=== PATIENT | female | born 1940 | race Hispanic/Latino ===

== ENCOUNTER 2017-06-08 15:45 | Inpatient (IN) | payer MEDICARE ==
[2017-06-08] MEDS ORDERED: Albuterol Sulfate 2.5 mg/0.5 ml Neb ONE (17:08)
[2017-06-08] MEDS ORDERED: Ipratropium Bromide 2.5 ml Neb ONE (17:09)
[2017-06-08] MEDS ORDERED: Amlodipine 5 MG TAB ONE (17:13)
[2017-06-08 17:53] LABS: ALT (SGPT) 14 U/L (8-55); AST (SGOT) 29 U/L (5-34); Alkaline Phosphatase 53 U/L (40-150); Anion Gap 15 mmol/L (10-20); BUN (Urea Nitrogen) 15 mg/dL (9.8-20.1); Bilirubin, Total 0.7 mg/dL (0.2-1.2); Calc. Creatinine Clearance 0 mL/min (70-130); Calcium 8.6 mg/dL (7.8-10.44); Carbon Dioxide 25 mmol/L (23-31); Chloride 107 mmol/L (98-107); Estimated GFR-MDRD 67; Globulin 3.7 g/dL (2.4-3.5); Glucose 123 mg/dL (83-110); Potassium 3.5 mmol/L (3.5-5.1); Protein, Total 6.7 g/dL (6.0-8.3); Sodium 143 mmol/L (136-145)
[2017-06-08 17:55] LABS: CKMB 1.7 ng/mL (0-6.6)
--- NOTE | 2017-06-08 17:59 | RAD ---
PORTABLE CHEST: Date: 06/08/17 PROVIDED CLINICAL HISTORY: Dyspnea. FINDINGS: Comparison with 12/11/15. The cardiac silhouette appears enlarged. Atherosclerosis involves the aortic arch. There is prominenc e of the pulmonary vasculature and pulmonary interstitium. There is left basilar pleural parenchymal opacity that may reflect at least in part pleural effusion. There is no evidence for pneumothorax. IMPRESSION: Cardiomegaly and findings suggesting congestive failure, possibly with associated left pleural effusi on. Follow-up is recommended. POS: DARIEN
[2017-06-08 18:07] LABS: #Basophils 0.1 thou/uL (0.0-0.2); #Eosinphils 0.2 thou/uL (0.0-0.7); #Lymphocytes 2.3 thou/uL (1.20-3.40); #Monocytes 0.7 thou/uL (0.11-0.59); #Neutrophils 2.5 thou/uL (1.40-6.50); %Basophils 1.8 % (0.0-1.0); %Eosinophils 2.9 % (0.0-10.0); %Lymphocytes 39.9 % (21.0-51.0); %Neutrophils 43.5 % (42.0-75.0); Anisocytosis SLIGHT = 6-15 cells (100X) (0-5/hpf); Elliptocytes SLIGHT = 2-5 cells (100X) (0-1/hpf); Hemoglobin 8.2 g/dL (12.0-16.0); Hypochromia SLIGHT = 6-15 cells (100X) (0-5/hpf); MDiff Complete? YES; Mean Corpuscular HGB CONC 29.5 g/dL (32.0-36.0); Mean Corpuscular Hemoglobin 24.5 pg (27.0-31.0); Mean Corpuscular Volume 83.1 fl (81.0-99.0); Mean Platelet Volume 6.8 fL (7.4-10.4); Microcytosis SLIGHT = 6-15 cells (100X) (0-5/hpf); Ovalocytes SLIGHT = 2-5 cells (100X) (0-1/hpf); PLT Morphology Comment Appears Adequate; Platelet Count 158 thou/uL (130-400); Polychromasia SLIGHT = 2-3 cells (100X) (0-2/hpf); RBC Distribution Width 16.6 % (11.5-14.5); Red Blood Cell (RBC) Count 3.36 mill/uL (4.20-5.40); White Blood Cell (WBC) Count 5.7 thou/uL (4.8-10.8)
[2017-06-08] MEDS ORDERED: Furosemide 40 MG/4 ML VIAL ONE (18:24)
[2017-06-08] MEDS ORDERED: Ondansetron ODT 4 MG TAB SL PRN (20:59)
[2017-06-08] MEDS ORDERED: Acetaminophen 325 MG TAB PO PRN (20:59)
[2017-06-08] MEDS ORDERED: Ondansetron HCl/PF 4 MG/2 ML Vial IVP PRN (20:59)
[2017-06-09 03:01] LABS: Cardiac Risk 3.8 (Less than 4.5)
[2017-06-09] MEDS ORDERED: PROVENTIL INHALER 6.7 G (200 INHALATIONS) INH PRN (03:22)
[2017-06-09] MEDS ORDERED: Metoprolol Tartrate 5 MG/5 ML VIAL IVP PRN (03:22)
--- NOTE | 2017-06-09 04:02 | HP ---
DATE OF ADMISSION: 06/09/2017 ADMITTING PHYSICIAN: Teodoro Sherman M.D. PRIMARY CARE PHYSICIAN: Unknown to me. CHIEF COMPLAINT: Elevated blood pressure and shortness of breath. HISTORY OF PRESENT ILLNESS: The patient is a 77-year-old female, who comes and reporting increased d yspnea on exertion. She has a history of asthma, but reports that the shortness of breath is not rel ieved with her inhaler. She has also been noted to be hypertensive by her home health nurse. She wa s sent in to the [place] [facility] for further evaluation. At [facility], she was noted to have marked dyspnea and a BNP of 2600. Her baseline BNP is around 300. The patien t also noted to have elevated troponins. She denies fever, chills, nausea, vomiting. There was some diaphoresis with her shortness of breath. REVIEW OF SYSTEMS: The following complete review of systems was negative, unless otherwise mentioned in the HPI or below: Constitutional: Weight loss or gain, sense of well-being, ability to conduct usual activities, exerc ise tolerance. Skin/Breast: Rash, itching, changes in hair growth or loss, nail changes, breast lumps, tenderness, swelling, nipple discharge. Eyes: Vision, double vision, tearing, blind spots, pain. ENT/Mouth: Headaches (location, time of onset, duration, precipitating factors), vertigo, lightheade dness, injury. Vision, double vision, tearing, blind spots, pain, nose bleeding, colds, obstruction, discharge, dental difficulties, gingival bleeding, dentures, neck stiffness, pain, tenderness, masses in thyroid or other areas. Cardiovascular: Precordial pain, substernal distress, palpitations, syncope, dyspnea on exertion, or thopnea, nocturnal paroxysmal dyspnea, edema, cyanosis, hypertension, heart murmurs, varicosities, ph lebitis, claudication. Respiratory: Pain, shortness of breath, wheezing, stridor, cough, hemoptysis, fever or night sweats. Gastrointestinal: Poor appetite, dysphagia, indigestion, abdominal pain, heartburn, eructation, naus ea, vomiting, hematemesis, jaundice, constipation, or diarrhea, abnormal stools (adilia-colored, tarry, bloody, greasy, foul smelling), flatulence, hemorrhoids, recent changes in bowel habits. Genitourinary: Urgency, frequency, dysuria, nocturia, hematuria, polyuria, oliguria, unusual (or raf nge in) color of urine, stones, hesitancy, change in size of stream, dribbling, acute retention or in continence, libido, potency. Musculoskeletal: Pain, swelling, redness or heat of muscles or joints, limitation, of motion, muscul ar weakness, atrophy, cramps. Neurologic/Psychiatric: Convulsions, paralyses, tremor, incoordination, paresthesias, difficulties w ith memory of speech, sensory or motor disturbances, or muscular coordination (ataxia, tremor), emoti onal problems, anxiety, depression, previous psychiatric care, unusual perceptions, hallucinations. Allergy/Immunologic: Skin rash, anemia, bleeding tendency, polydipsia, polyuria, intolerance to heat or cold. PAST MEDICAL HISTORY: Significant for hypertension, psoriasis, diabetes, congestive heart failure. PAST SURGICAL HISTORY: Positive for right ankle procedure, hysterectomy, cardiac ablation. PSYCHIATRIC HISTORY: No known previous psychiatric history. SOCIAL HISTORY: She denies alcohol, drug use or smoking. Lives with her . FAMILY HISTORY: Noncontributory to this case. HOME MEDICATIONS: Lisinopril 20 mg once a day, Aggrenox 1 cap b.i.d., metformin 500 mg b.i.d., levot hyroxine 88 mcg q. day, Proventil inhaler 2 puffs q.6 hours, carvedilol 25 mg b.i.d., Humira one dose every other week subcutaneously. DRUG ALLERGIES: NAPROXEN, this is unconfirmed. Otherwise, no known drug allergies. PHYSICAL EXAMINATION: VITAL SIGNS: Temperature is 98.9, blood pressure is 180/94, pulse 71, respirations 16, O2 sats 98% o n room air. GENERAL: This patient is in no acute distress. She is pleasant, nontoxic. HEAD: Normocephalic, atraumatic. EYES: PERRL. Extraocular muscles are intact. No nystagmus. ENT: External ear within normal limits. No bleeding from her nares. NECK: Supple. Full range of motion. CHEST: Fine crackles in the bases, otherwise clear to auscultation. CARDIOVASCULAR: Regular rate and rhythm with a holosystolic murmur. ABDOMEN: Nontender, nondistended. EXTREMITIES: No clubbing or cyanosis, trace edema. NEUROLOGIC: Cranial nerves II-XII grossly intact. Full range of motion of all extremities. LABORATORY DATA AND IMAGES: EKG shows nonspecific ST and T-wave changes, enlarged QRS. Chest x-ray shows left pleural effusion, congestive heart failure. CBC: White count 5.7, hemoglobin 8.2, hemato crit 27.9, platelets 158. CMP: Sodium 143, potassium 3.5, chloride 107, CO2 of 25, BUN 15, creatini ne 0.83, glucose 123, CK-MB 1.7, troponin I 0.06 and then second 0.05. BNP 2690, albumin 3.0, LDL 12 2, HDL 32. ASSESSMENT: 1. Acute on chronic congestive heart failure exacerbation. 2. Accelerated hypertension. 3. Possible non-ST elevation myocardial infarction. PLAN: The patient will be admitted to telemetry, we will diurese the patient. We will also cover he r with anticoagulation therapy as well as beta blockers. She will be seen and assessed by the Cardio logy Service. Further interventions to follow appropriate evaluation by subspecialist.
[2017-06-09] MEDS: Levothyroxine Sodium 88 MCG TAB PO SCH (05:53)
[2017-06-09] MEDS ORDERED: Enoxaparin Sodium 80 MG/0.8 ML SYRINGE SC SCH (09:00)
[2017-06-09] MEDS: Carvedilol 25 MG TAB PO SCH ×2 (09:22→20:17)
--- NOTE | 2017-06-09 11:16 | PQF ---
DATE: 06-09-17 ATTN: DR. RAVEN LYN Please exercise your independent, professional judgment in responding to the clarification form. Clinical indicators are provided on the bottom of this form for your review Please check appropriate box(s): [ X ] Primary/Essential Hypertension [ X ] Emergency [ ] Crisis [ X ] Hypertensive Heart Disease [ ] Other diagnosis [ ] Unable to determine In addition, please specify: Present on Admission (POA): [ ] Yes [ ] No [ ] Unable to determine For continuity of documentation, please document condition throughout progress notes and discharge summary. Thank You. CLINICAL INDICATORS - SIGNS / SYMPTOMS / LABS ER DOCUMENTATION: HIGH BLOOD PRESSURE, PT REPORTS THAT SHE HAD CHANGES TO BP MEDS DUE TO HTN, BUT NO RELIEF, HTN FOR 3X H&P: ACCELERATED HTN RISK FACTORS : ER DOCUMENTATION: HIGH BLOOD PRESSURE, HTN FOR 3X, HX OF HTN H&P: HX OF HTN, DM, CHF TREATMENTS: TELEMETRY MONITORING (MAR) COREG, LOTENSIN, LOPRESSOR, (This form is maintained as a part of the permanent medical record) 2014 [employer]. All Rights Reserved [email or web address] Office: [phone] [facility] CENTERYaima
--- NOTE | 2017-06-09 21:21 | CON ---
DATE OF CONSULTATION: 06/09/2017 REASON FOR CONSULTATION: Congestive heart failure, diastolic, acute. HISTORY OF PRESENT ILLNESS: Ms. Sung is a delightful 77-year-old woman. Patient came to the hospit al yesterday due to difficulty breathing and was found to be in heart failure. She received a dose o f intravenous Lasix and began feeling better. She is feeling better today, but still has significant edema. PAST MEDICAL HISTORY: 1. Hypertension, difficult to control. 2. Coronary artery disease. She had a balloon angioplasty of the vessel many years ago. 3. Psoriasis. 4. Diabetes. MEDICATIONS: 1. Benazepril 40 mg a day. 2. Aspirin/dipyridamole. 3. Carvedilol 25 mg twice a day. 4. Levothyroxine. ALLERGIES: Naproxen. SOCIAL HISTORY: No alcohol or tobacco. FAMILY HISTORY: Negative for heart disease in young age. REVIEW OF SYSTEMS: CONSTITUTIONAL: No significant weight gain or loss. VISION: No changes. HEARING: No changes. PULMONARY: No cough or wheezing. GASTROINTESTINAL: No nausea, vomiting, diarrhea. SKIN: No rashes. NEUROLOGIC: No unilateral weakness or numbness. PSYCHIATRIC: No unusual depression or anxiety. HEMATOLOGIC: No unusual bruising. GENITOURINARY: No burning with urination. MUSCULOSKELETAL: No unusual joint pains. PHYSICAL EXAMINATION: GENERAL: This is a pleasant 77-year-old woman. VITAL SIGNS: Her blood pressure is 170/73, pulse 58, regular. HEENT: Sclerae nonicteric. Mouth mucous membranes moist. NECK: Supple, no lymphadenopathy. LUNGS: Clear anteriorly and posteriorly, few rales. CARDIAC: Normal S1, normal S2. There is 2/6 harsh systolic murmur right upper sternal border. No d iastolic murmur, no S3. ABDOMEN: Soft, nontender, no hepatosplenomegaly. EXTREMITIES: Warm, dry, no clubbing or cyanosis. There is moderate edema. Echocardiogram, ejection fraction 50% to 55%, mild to moderate aortic stenosis and markedly enlarged left atrium. PERTINENT LABORATORY DATA: Hemoglobin is 8.2, hematocrit 27.9. The patient's blood pressures over 200 systolic on arrival here. LABORATORY AND X-RAY FINDINGS: EKG normal sinus rhythm, some nonspecific ST and T-wave changes later ally, T-wave inversions diffusely may be LVH versus ischemia. ASSESSMENT: 1. Congestive heart failure, diastolic, acute, improved. 2. Anemia, possibly iron deficiency. 3. Hypertension, difficult to control. 4. Longstanding diabetes. PLAN: 1. Continue diuretics. 2. Check iron levels tomorrow, may need intravenous iron. 3. Proceed to cardiac catheterization . Discussed risks of stroke, heart attack, iodine all ergy, loss of blood supply to the leg or kidney, stent thrombosis, stent restenosis. She understands and wishes to proceed.
[2017-06-10] MEDS: Levothyroxine Sodium 88 MCG TAB PO SCH (05:29)
[2017-06-10] MEDS: Furosemide 20 MG/2 ML VIAL SLOW IVP SCH ×2 (05:30→13:39)
[2017-06-10 06:35] LABS: #Basophils 0.1 thou/uL (0.0-0.2); #Eosinphils 0.1 thou/uL (0.0-0.7); #Lymphocytes 1.7 thou/uL (1.20-3.40); #Monocytes 0.4 thou/uL (0.11-0.59); #Neutrophils 1.6 thou/uL (1.40-6.50); %Basophils 1.4 % (0.0-1.0); %Eosinophils 3.5 % (0.0-10.0); %Monocytes 10.7 % (0.0-10.0); %Neutrophils 41.5 % (42.0-75.0); Hemoglobin 8.4 g/dL (12.0-16.0); Mean Corpuscular HGB CONC 30.6 g/dL (32.0-36.0); Mean Corpuscular Hemoglobin 25.8 pg (27.0-31.0); Mean Corpuscular Volume 84.1 fl (81.0-99.0); Mean Platelet Volume 8.5 fL (7.4-10.4); Platelet Count 141 thou/uL (130-400); RBC Distribution Width 16.6 % (11.5-14.5); Red Blood Cell (RBC) Count 3.27 mill/uL (4.20-5.40); White Blood Cell (WBC) Count 3.9 thou/uL (4.8-10.8)
[2017-06-10 07:04] LABS: Iron 21 ug/dL (50-170); Iron Binding Capacity, Total 351 mcg/dL (265-497)
--- NOTE | 2017-06-10 07:24 | PDOC.PN ---
- Subjective Encounter Start Date: 06/10/17 Encounter Start Time: 07:40 Subjective: No chest pain. SOB and edema improved. - Objective MAR Reviewed: Yes Vital Signs & Weight: Vital Signs (12 hours) Temp Pulse Resp BP BP Pulse Ox 06/10/17 03:58 97.9 F 59 L 16 180/77 H 95 06/10/17 00:19 98.2 F 57 L 16 163/70 H 97 06/09/17 22:07 60 168/73 H 06/09/17 19:51 98.3 F 67 16 98 06/09/17 19:30 98.5 F 67 16 183/78 H 98 Weight Weight 165 lb I&O: 06/09/17 06/10/17 06/11/17 06:59 06:59 06:59 Intake Total 240 Output Total 300 Balance -60 Result Diagrams: 06/10/17 06:11 06/08/17 17:30 Additional Labs: Accuchecks 06/10/17 06/09/17 06:24 21:30 POC Glucose 132 H 175 H Phys Exam - Physical Examination Constitutional: NAD HEENT: moist MMs Respiratory: no wheezing, no rales, no rhonchi Cardiovascular: RRR, no significant murmur Gastrointestinal: soft, positive bowel sounds Musculoskeletal: edema present 1+ BLE edema Neurological: non-focal, moves all 4 limbs Psychiatric: normal affect, A&O x 3 Dx/Plan (1) Acute on chronic diastolic (congestive) heart failure Code(s): I50.33 - ACUTE ON CHRONIC DIASTOLIC (CONGESTIVE) HEART FAILURE Status : Acute Comment: Diuresing and feeling better. (2) Normocytic anemia Code(s): D64.9 - ANEMIA, UNSPECIFIED Status: Acute Comment: Developed since 2017, uncertain eitiology, no renal failure, will check hemoccult as patient on Aggrenox. (3) Diabetes type 2, controlled Code(s): E11.9 - TYPE 2 DIABETES MELLITUS WITHOUT COMPLICATIONS Status: Chronic (4) Hypertension Code(s): I10 - ESSENTIAL (PRIMARY) HYPERTENSION Status: Chronic - Plan cont current plan of care, PT/OT Planned cath tomorrow. Appreciate Dr. Mccallum's input. * . - Discharge Day Encounter end time: 08:10
[2017-06-10] MEDS: Aggrenox 200-25mg CAP PO SCH ×2 (08:58→21:03)
[2017-06-10] MEDS: Carvedilol 25 MG TAB PO SCH ×2 (08:58→21:03)
[2017-06-10] MEDS ORDERED: Enoxaparin Sodium 60 MG/0.6 ML SYRINGE SC SCH (09:00)
[2017-06-10] MEDS ORDERED: FLU VACC TS2017-18 (>65YR) 0.5 ML SYRINGE IM ONE (09:00)
[2017-06-10] MEDS ORDERED: Iron Dextran 500 MG in Sodium Chloride 0.9% 250 ML IVPB SCH (11:30)
[2017-06-10] MEDS ORDERED: Spironolactone 25 MG TAB PO SCH (11:30)
[2017-06-10] MEDS ORDERED: Potassium Chloride 20 MEQ TAB PO SCH (12:00)
--- NOTE | 2017-06-10 18:13 | PRG ---
DATE OF SERVICE: 06/10/2017 SUBJECTIVE: Ms. Sung is doing well. No chest pain or pressure. Overall, feels better. OBJECTIVE: VITAL SIGNS: Blood pressure is still elevated at 182/72, pulse 60, it is regular. LUNGS: Clear. CARDIAC: Normal S1, normal S2. ABDOMEN: Soft and nontender. ASSESSMENT: 1. Hypertension 2. Angina. 3. Anemia, iron deficiency. PLAN: 1. Proceed to cardiac catheterization tomorrow. I discussed risks of stroke, heart attack, iodine a llergy, loss of blood supply to the leg or kidney, stent thrombosis, stent restenosis. She understan ds and wishes to proceed. 2. We will need further evaluation for iron deficiency anemia. 3. She did receive intravenous iron today. Her iron level was 21 with a ferritin level of 11.89, bu t these are very low.
[2017-06-10] MEDS ORDERED: Amlodipine 5 MG TAB PO SCH (18:15)
[2017-06-10] MEDS ORDERED: Communication Order-Pharmacy FS SCH (18:15)
[2017-06-10] MEDS ORDERED: Diazepam 5 MG TAB PO SCH (18:15)
[2017-06-11] MEDS: Levothyroxine Sodium 88 MCG TAB PO SCH (05:12)
[2017-06-11] MEDS: Sodium Chloride 0.9% 1,000 ML IV SCH ×2 (05:12→18:23)
[2017-06-11] MEDS: Carvedilol 25 MG TAB PO SCH ×2 (05:13→20:12)
[2017-06-11] MEDS: Aggrenox 200-25mg CAP PO SCH (05:13)
[2017-06-11] MEDS: Amlodipine 5 MG TAB PO SCH (05:13)
[2017-06-11 06:23] LABS: #Eosinphils 0.1 thou/uL (0.0-0.7); #Lymphocytes 1.8 thou/uL (1.20-3.40); #Monocytes 0.4 thou/uL (0.11-0.59); #Neutrophils 1.9 thou/uL (1.40-6.50); %Basophils 0.8 % (0.0-1.0); %Eosinophils 2.2 % (0.0-10.0); %Lymphocytes 43.2 % (21.0-51.0); %Monocytes 8.8 % (0.0-10.0); %Neutrophils 44.9 % (42.0-75.0); Hemoglobin 8.2 g/dL (12.0-16.0); Mean Corpuscular HGB CONC 30.5 g/dL (32.0-36.0); Mean Corpuscular Hemoglobin 25.8 pg (27.0-31.0); Mean Corpuscular Volume 84.6 fl (81.0-99.0); Mean Platelet Volume 8.6 fL (7.4-10.4); Platelet Count 157 thou/uL (130-400); RBC Distribution Width 16.7 % (11.5-14.5); Red Blood Cell (RBC) Count 3.18 mill/uL (4.20-5.40); White Blood Cell (WBC) Count 4.1 thou/uL (4.8-10.8)
[2017-06-11 06:51] LABS: Anion Gap 12 mmol/L (10-20); BUN (Urea Nitrogen) 17 mg/dL (9.8-20.1); Calc. Creatinine Clearance 63 mL/min (70-130); Carbon Dioxide 28 mmol/L (23-31); Chloride 106 mmol/L (98-107); Potassium 3.5 mmol/L (3.5-5.1); Sodium 142 mmol/L (136-145)
[2017-06-11 06:52] LABS: Calcium 8.2 mg/dL (7.8-10.44); Estimated GFR-MDRD 65; Glucose 119 mg/dL (83-110)
[2017-06-11] MEDS ORDERED: Fentanyl 100 MCG/2 ML VIAL ONE (07:15)
[2017-06-11] MEDS ORDERED: Acetaminophen/Codeine 30-300mg Tablet PO PRN (08:08)
[2017-06-11] MEDS ORDERED: traMADol HCl 50 MG TAB PO PRN (08:08)
[2017-06-11] MEDS ORDERED: Nitroglycerin 0.4 MG TAB (25 Tab Bottle) SL PRN (08:08)
[2017-06-11] MEDS ORDERED: Sodium Chloride 0.9% 200 ML IV SCH (08:15)
--- NOTE | 2017-06-11 10:54 | PDOC.PN ---
- Subjective Encounter Start Date: 06/11/17 Encounter Start Time: 10:50 Subjective: Patient back from [facility], just talked to Dr. Lucero about Bipass surgery. No -: chest pain. No SOB. - Objective MAR Reviewed: Yes Vital Signs & Weight: Vital Signs (12 hours) Temp Pulse Resp BP BP Pulse Ox 06/11/17 08:00 98.3 F 65 20 144/66 H 99 06/11/17 05:14 141/64 H 06/11/17 05:13 62 141/64 H 06/11/17 04:00 98.3 F 62 16 141/64 H 95 06/11/17 00:00 98.1 F 61 16 132/60 93 L 06/10/17 23:31 98.0 F 63 16 96 Weight Weight 159 lb 6.4 oz I&O: 06/10/17 06/11/17 06/12/17 06:59 06:59 06:59 Intake Total 240 1270 Output Total 300 1300 Balance -60 -30 Result Diagrams: 06/11/17 05:51 06/11/17 05:51 Additional Labs: Accuchecks 06/11/17 06/10/17 06/10/17 05:20 21:17 17:40 POC Glucose 112 H 206 H 156 H 06/10/17 11:02 POC Glucose 205 H Phys Exam - Physical Examination Constitutional: NAD HEENT: moist MMs Respiratory: no wheezing, no rales, no rhonchi, clear to auscultation bilateral Cardiovascular: RRR 2/6 SYBIL Gastrointestinal: soft, positive bowel sounds Neurological: non-focal, moves all 4 limbs Psychiatric: normal affect, A&O x 3 Dx/Plan (1) Acute on chronic diastolic (congestive) heart failure Code(s): I50.33 - ACUTE ON CHRONIC DIASTOLIC (CONGESTIVE) HEART FAILURE Status : Acute Comment: Diuresing and feeling better. (2) Normocytic anemia Code(s): D64.9 - ANEMIA, UNSPECIFIED Status: Acute Comment: Developed since 2017, uncertain eitiology, no renal failure, low iron levels, neg hemoccult. Suspect GI blood loss though not actively. Will need GI w/u as outpatient. (3) Diabetes type 2, controlled Code(s): E11.9 - TYPE 2 DIABETES MELLITUS WITHOUT COMPLICATIONS Status: Chronic (4) Hypertension Code(s): I10 - ESSENTIAL (PRIMARY) HYPERTENSION Status: Chronic (5) Coronary artery disease Code(s): I25.10 - ATHSCL HEART DISEASE OF [place] CORONARY ARTERY W/O ANG PCTRS Status: Acute Qualifiers: Coronary Disease-Associated Artery/Lesion type: [place] artery Comment: 80% blockage of left main. Will need CABG. - Plan cont current plan of care, DVT proph w/SCDs * . - Discharge Day Encounter end time: 11:20
[2017-06-11] MEDS ORDERED: Communication Order-Pharmacy FS SCH (12:58)
--- NOTE | 2017-06-11 13:11 | CON ---
DATE OF CONSULTATION: 06/11/2017 REASON FOR CONSULTATION: Evaluation for coronary artery bypass surgery and possible aortic valve replacement. PERTINENT HISTORY: The patient is a 77-year-old female with history of remote coronary angioplasty to an unknown vessel in [place]. For the past 4 months , she has had a progressive pattern of exertional shortness of breath, easy fatigability, and lower extremity edema. She presented 3 days ago with advanced symptoms of heart failure. Blood pressure was over 200. BNP was elevated at 2690. Peak troponin I was 0.060. Chest x-ray demonstrated cardiomegaly with increased pulmonary vasculature. Symptomatic improvement has been seen with diuresis and blood pressure control. Transthoracic echo demonstrated an ejection fraction of 50-55%, LVH, and mild to moderate aortic stenosis. Cardiac catheterization today demonstrated severe left main and 3- vessel disease including an occluded RCA with preserved left ventricular systolic function. Ejection fraction was 55%. LVEDP was 11. The patient was subsequently referred for consideration of coronary artery bypass surgery and possible aortic valve replacement. PAST MEDICAL HISTORY: 1. Poorly controlled hypertension. 2. Diabetes. 3. Psoriasis on q.2 weakly Humira. 4. Hypothyroidism. PAST SURGICAL HISTORY: Hysterectomy. ALLERGIES: NAPROXEN. SOCIAL HISTORY: Non-smoker. Nondrinker. FAMILY HISTORY: Noncontributory for coronary artery disease or valvular heart disease. REVIEW OF SYSTEMS: No history of documented dyslipidemia, stroke, kidney or liver disease, or claudication. MEDICATIONS PRIOR TO ADMISSION: Albuterol inhaler, Coreg, Humira, Synthroid, benazepril, and Aggrenox. CURRENT MEDICATIONS: Humira 40 mg subcu q.14 days, Norvasc 5 mg daily, Aggrenox 1 capsule b.i.d., benazepril 40 mg daily, Coreg 25 mg b.i.d., Lovenox 60 mg q.12 hours, Lasix 20 mg IV q.6 hours, Synthroid 88 mcg daily, and spironolactone 25 mg daily. LABORATORY AND X-RAY FINDINGS: Hemoglobin 8.2, which appears to represent a chronic anemia. Platelet count 157,000. Creatinine 0.85. PHYSICAL EXAMINATION: HEIGHT: 5 feet 3 inches. WEIGHT: 159 pounds. VITAL SIGNS: Blood pressure 144/66, heart rate 65, temperature 98.3. GENERAL: Well-developed, well-nourished female in no acute distress. She is fully oriented. HEENT: Grossly unremarkable. NECK: Without obvious JVD or adenopathy. LUNGS: Clear anteriorly. HEART: Regular rate and rhythm with soft systolic ejection murmur best heard at the right upper sternal border. ABDOMEN: Soft and nontender, without palpable mass. EXTREMITIES: With very minimal pretibial pitting edema. VASCULAR: Palpable radial, femoral, and popliteal pulses bilaterally. No carotid bruits were appreciated. Abdominal aorta is nonpalpable. NEUROLOGIC: No focal deficits. IMPRESSION: 1. 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 2. Mild to moderate aortic stenosis. RECOMMENDATIONS: Coronary artery bypass surgery and possible aortic valve replacement to which the patient is in agreement following discussion with her referring manager culture and myself. The indications, benefits, alternatives, and risks were explained in detail to the patient and her family. All questions were answered. The patient agrees to proceed without reservations. FELICE
--- NOTE | 2017-06-11 23:56 | PRG ---
DATE OF SERVICE: 06/11/2017 Ms. Sung is doing well, no complaints. Discussed with the patient and family again that she will have bypass surgery tomorrow. The aortic v alve will be evaluated by Dr. Lucero. If the valve annulus and small then they probably would not do valve replacement. Also, if there is calcium in the aorta, probably will not do valve replacement. TAVR may be necessary in a couple of years. Discussed with the family.
[2017-06-12] MEDS: Levothyroxine Sodium 88 MCG TAB PO SCH (05:22)
[2017-06-12] MEDS: Amlodipine 5 MG TAB PO SCH (05:23)
[2017-06-12] MEDS: Carvedilol 25 MG TAB PO SCH (05:23)
[2017-06-12] MEDS ORDERED: Heparin 10,000 UNITS/1 ML VIAL 30,000 UNITS in Sodium Chloride 0.9% 1,000 ML FS SCH (06:45)
[2017-06-12] MEDS ORDERED: CEFAZOLIN/Water 2 GM/20 ML SYRINGE ONE (08:05)
[2017-06-12] MEDS ORDERED: Midazolam HCl 2 mg/2 ml Vial ONE (08:27)
[2017-06-12] MEDS ORDERED: Vancomycin HCl 1 GM in Premix Bag 1 BAG IVPB SCH (09:00)
[2017-06-12] MEDS ORDERED: CEFAZOLIN 2 GM in Sodium Chloride 0.9% 100 ML IVPB SCH (09:30)
[2017-06-12] MEDS ORDERED: Midazolam HCl 5 mg/5 ml Vial ONE ×2 (10:17→12:07)
[2017-06-12] MEDS ORDERED: Ketamine 50 MG/ML VIAL ONE ×2 (10:17→12:07)
[2017-06-12] MEDS ORDERED: Fentanyl 250 MCG/5 ML VIAL ONE ×2 (10:17→12:07)
[2017-06-12] MEDS ORDERED: Post-Op Insulin Drip Protocol IVPB ONE (16:45)
[2017-06-12] MEDS ORDERED: Bisacodyl 5 MG TAB PO PRN (16:45)
[2017-06-12] MEDS ORDERED: Guaifenesin DM 100-10/5 ML UDCUP PO PRN (16:45)
[2017-06-12] MEDS ORDERED: Mag-Al 1200 mg/1200 mg/30 ML UDCUP PO PRN (16:45)
[2017-06-12] MEDS ORDERED: Phenylephrine 10 MG/NS 250 ML 250 ML IVPB PRN (16:45)
[2017-06-12] MEDS ORDERED: Promethazine HCl 25 MG/ML VIAL IM PRN (16:45)
[2017-06-12] MEDS ORDERED: HYDROcodone/Acetaminophen 5/325 mg Tablet PO PRN ×2 (16:45)
[2017-06-12] MEDS ORDERED: Ondansetron HCl/PF 4 MG/2 ML Vial IVP PRN (16:45)
[2017-06-12] MEDS ORDERED: Nitroglycerin 50 MG/250 ML BOT 250 ML IVPB PRN (16:45)
[2017-06-12] MEDS ORDERED: Bisacodyl 10 MG SUPP PR PRN (16:45)
[2017-06-12] MEDS ORDERED: Acetaminophen 325 MG TAB PO PRN (16:45)
[2017-06-12] MEDS ORDERED: Fentanyl 100 MCG/2 ML VIAL SLOW IVP PRN ×2 (16:45)
[2017-06-12] MEDS ORDERED: Dextrose 50% Abboject 50 ML SYRINGE SLOW IVP PRN (16:54)
[2017-06-12] MEDS ORDERED: Dextrose 5% in Water 1,000 ML IV PRN (16:54)
[2017-06-12] MEDS ORDERED: Morphine 2 MG/ML SYRINGE SLOW IVP PRN (17:03)
[2017-06-12] MEDS ORDERED: Aminocaproic Acid 5 GM/20 ML VIAL ONE (17:06)
[2017-06-12] MEDS ORDERED: Mannitol 12.5 GM/50 ML ONE (17:06)
[2017-06-12] MEDS ORDERED: Potassium Chloride 60 MEQ/30 ML VIAL ONE (17:06)
[2017-06-12] MEDS ORDERED: Calcium Chloride 1 GM/10 ML Abboject SYRINGE ONE (17:06)
[2017-06-12] MEDS ORDERED: Heparin 30,000 units/30 ml VIAL ONE (17:06)
[2017-06-12] MEDS ORDERED: Lidocaine 1% PF 5 ML VIAL ONE (17:06)
[2017-06-12] MEDS ORDERED: Cardioplegic Soln 1,000 ML BAG ONE (17:06)
[2017-06-12] MEDS ORDERED: Thrombin 5000 UNITS/5 ML VIAL ONE (17:06)
[2017-06-12] MEDS ORDERED: PROPOFOL 200 MG/20 ML VIAL ONE (17:06)
[2017-06-12] MEDS ORDERED: Papaverine 60 MG/2 ML VIAL ONE (17:06)
[2017-06-12] MEDS ORDERED: Lidocaine 2% PF 100 mg/5 ml Syringe ONE (17:06)
[2017-06-12] MEDS ORDERED: Magnesium 5 GM/10 ML VIAL ONE (17:06)
[2017-06-12] MEDS ORDERED: Protamine Sulfate 250 MG/25 ML VIAL ONE (17:06)
[2017-06-12] MEDS ORDERED: Sodium Bicarb 50 MEQ/50 ML Abboject 8.4% SYRINGE ONE (17:06)
[2017-06-12] MEDS ORDERED: Vecuronium 10 MG VIAL ONE (17:06)
[2017-06-12] MEDS: hydrALAZINE 20 MG/ML VIAL SLOW IVP PRN (17:14)
[2017-06-12 17:18] LABS: PTT 35.4 SEC (22.9-36.1)
[2017-06-12 17:19] LABS: INR-International Normal Ratio 1.6; Prothrombin Time 19.7 SEC (12.0-14.7)
--- NOTE | 2017-06-12 17:19 | PDOC.PN ---
- Subjective Encounter Start Date: 06/12/17 Encounter Start Time: 17:17 Patient seen at bedside, postoperatively. Underwent CABG earlier today. - Objective MAR Reviewed: Yes Vital Signs & Weight: Vital Signs (12 hours) Pulse BP 06/12/17 17:14 59 L 152/68 H 06/12/17 05:23 59 L 152/68 H 06/12/17 05:22 152/68 H Weight Weight 162 lb 1.6 oz Most Recent Monitor Data Heart Rate from ECG 54 NIBP 134/51 NIBP BP-Mean 61 Respiration from ECG 16 SpO2 100 I&O: 06/11/17 06/12/17 06/13/17 06:59 06:59 06:59 Intake Total 1270 2160 Output Total 1300 600 Balance -30 1560 Result Diagrams: 06/11/17 05:51 06/11/17 05:51 Additional Labs: Accuchecks 06/12/17 06/12/17 06/12/17 15:41 14:35 13:56 POC Glucose 143 H 136 H 142 H 06/12/17 06/12/17 06/12/17 13:41 12:56 05:54 POC Glucose 126 H 134 H 126 H 06/11/17 06/11/17 21:10 17:11 POC Glucose 251 H 272 H Phys Exam - Physical Examination Constitutional: NAD ET Tube in place Respiratory: clear to auscultation bilateral chest tube in place Cardiovascular: RRR Gastrointestinal: soft Musculoskeletal: pulses present Skin: no rash Deviation from normal: surgical site intact Dx/Plan (1) S/P CABG (coronary artery bypass graft) Code(s): Z95.1 - PRESENCE OF AORTOCORONARY BYPASS GRAFT Status: Acute (2) Coronary artery disease Code(s): I25.10 - ATHSCL HEART DISEASE OF [place] CORONARY ARTERY W/O ANG PCTRS Status: Acute Qualifiers: Coronary Disease-Associated Artery/Lesion type: [place] artery (3) Diabetes type 2, controlled Code(s): E11.9 - TYPE 2 DIABETES MELLITUS WITHOUT COMPLICATIONS Status: Chronic (4) Hypertension Code(s): I10 - ESSENTIAL (PRIMARY) HYPERTENSION Status: Chronic - Plan cont current plan of care, segovia catheter, respiratory therapy, incentive spirometry, DVT proph w/lovenox * Continue with post operative care per [facility]. * ASA/Statin * Albumin * Chest tube care * Supportive care
[2017-06-12] MEDS: Insulin Regular 300 UNITS/3 ML VIAL SC PRN ×3 (17:22→23:45)
[2017-06-12 17:26] LABS: Anion Gap 13 mmol/L (10-20); BUN (Urea Nitrogen) 14 mg/dL (9.8-20.1); Calc. Creatinine Clearance 70 mL/min (70-130); Calcium 8.5 mg/dL (7.8-10.44); Carbon Dioxide 22 mmol/L (23-31); Chloride 111 mmol/L (98-107); Estimated GFR-MDRD 72; Glucose 114 mg/dL (83-110); Potassium 3.2 mmol/L (3.5-5.1); Sodium 143 mmol/L (136-145)
[2017-06-12 17:32] LABS: #Eosinphils 0.1 thou/uL (0.0-0.7); #Lymphocytes 1.7 thou/uL (1.20-3.40); #Monocytes 0.4 thou/uL (0.11-0.59); #Neutrophils 4.5 thou/uL (1.40-6.50); %Basophils 0.1 % (0.0-1.0); %Eosinophils 1.5 % (0.0-10.0); %Lymphocytes 24.8 % (21.0-51.0); %Monocytes 5.8 % (0.0-10.0); %Neutrophils 67.9 % (42.0-75.0); Hemoglobin 8.4 g/dL (12.0-16.0); Hypochromia SLIGHT = 6-15 cells (100X) (0-5/hpf); MDiff Complete? YES; Mean Corpuscular HGB CONC 31.6 g/dL (32.0-36.0); Mean Corpuscular Hemoglobin 26.9 pg (27.0-31.0); Mean Corpuscular Volume 85.1 fl (81.0-99.0); Mean Platelet Volume 8.7 fL (7.4-10.4); Ovalocytes SLIGHT = 2-5 cells (100X) (0-1/hpf); PLT Morphology Comment Appears Decreased; Platelet Count 116 thou/uL (130-400); Polychromasia SLIGHT = 2-3 cells (100X) (0-2/hpf); RBC Distribution Width 16.2 % (11.5-14.5); Red Blood Cell (RBC) Count 3.12 mill/uL (4.20-5.40); White Blood Cell (WBC) Count 6.7 thou/uL (4.8-10.8)
[2017-06-12 17:35] LABS: Actual Bicarbonate (HCO3a) 22.7 mEq/L (22-26); Base Excess (BEa) -0.9 mEq/L (0 (+/-) 2.5); CO2 Tension 33.2 mmHg (35.0-45.0); Calcium, Ionized 1.1 mmol/L (1.12-1.30); Hematocrit-ABG 26.6 % (36.0-47.0); Hemoglobin (Hb) 8.7 g/dL (12.0-16.0); O2 Tension (PaO2) 120.4 mmHg (80.0-100.0); pH, Arterial 7.45 (7.35-7.45)
[2017-06-12 17:37] LABS: Puncture Site ALINE
[2017-06-12] MEDS: Sodium Chloride 0.9% 1,000 ML IV SCH (17:38)
[2017-06-12] MEDS: Potassium Chloride 20 MEQ/100 ML PREMIX BAG IVPB PRN ×2 (17:38→22:46)
--- NOTE | 2017-06-12 17:43 | RAD ---
PORTABLE SUPINE CHEST ONE VIEW: 06/12/17 HISTORY: 77-year-old female postop open heart. Recent postop midline sternotomy changes with multiple chest tubes, endotracheal tube, and right subc lavian catheter with some minimal bilateral vascular congestion and some patchy bilateral perihilar s ubsegmental atelectasis and slight costophrenic angle blunting bilaterally consistent with postoperat enriqueta change without evidence for significant pneumothorax or other significant process. IMPRESSION: Minimal postoperative subsegmental atelectasis and small pleural effusion changes. No significant pne umothorax or other acute process. POS: DENISE
--- NOTE | 2017-06-12 18:43 | OP ---
PREOPERATIVE DIAGNOSIS: 1. 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 2. Mild aortic stenosis. POSTOPERATIVE DIAGNOSIS: 1. 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 2. Mild aortic stenosis. SURGEON: Alan Lucero M.D. MAILING SPECIALIST: Dr. Zepeda. SPONGE AND NEEDLE COUNTS: Correct. ANESTHESIA: General. OPERATIONS PERFORMED: Coronary artery bypass grafting x4 with left internal mammary artery to LAD, reversed greater saphenous vein to diagonal, reversed greater saphenous vein to OM, and reversed greater saphenous vein to acute marginal branch. FINDINGS AT OPERATION: Cardiomegaly. Nothing suitable was found to graft in the RCA distribution other than the acute marginal branch. At the sites of distal anastomosis the LAD was 1.5 to 1.75 mm, the diagonal 1.5 to 1.75 mm, the OM 2.0 mm, and the acute marginal branch 1.5 mm. Left internal mammary artery and greater saphenous vein were adequate conduits. Intraoperative BELL demonstrated the aortic valve annulus to be 19 to 20 mm with somewhat calcified aortic valve leaflets that otherwise moved normally. AVR, therefore, was not performed. DESCRIPTION OF OPERATION: The patient was taken to the operating room. Following the induction of general endotracheal anesthesia, the patient was prepped and draped in the usual sterile fashion. Sternotomy was performed. Left internal mammary artery was dissected in extrapleural fashion. Simultaneously, the left greater saphenous vein was harvested using the endoscopic technique. Heparin dose was given and following assurance of an adequate ACT, the patient was cannulated in standard fashion. Cardiopulmonary bypass was instituted. Locations of distal anastomoses were marked. Padded cross-clamp was applied with a single application and a single dose of cold blood cardioplegia given antegrade. The first vein graft was anastomosed in end -to-side fashion to the OM using a continuous 7-0 Prolene suture. In similar fashion, separate vein grafts were established to the diagonal and acute marginal branch. Left internal mammary artery was anastomosed in end-to-side fashion to the LAD using a continuous 7-0 Prolene suture. None of the distal anastomoses required additional sutures. Mammary artery pedicle was tacked to the epicardium using 6-0 Prolene sutures. Systemic rewarming had been begun. With the head down and gentle suction on the aortic vent, the aortic cross- clamp was removed. Cardioversion was not required. Partial clamp was placed on the ascending aorta with a single application and 2 proximal vein graft anastomoses performed to punch holes using continuous 6-0 Prolene sutures. These were to the acute marginal branch and OM grafts. The proximal diagonal anastomosis was performed to the goode of the OM vein graft using a continuous 6- 0 Prolene suture. Partial clamp was removed and vein grafts deaired. Temporary atrial and ventricular pacing wires were placed with the patient requiring transient intraoperative AV sequential pacing. Following full systemic rewarming, the patient was weaned from cardiopulmonary bypass without difficulty and following heparin reversal with Protamine, the patient was decannulated. Amicar had been used in standard fashion through the case. She did receive 3 units of packed red blood cells while on pump for hemoglobins as low as 5 with preoperative hemoglobin of 8. An obvious coagulopathy appeared to exist at this time which appeared to correct with one single donor pack of platelets and 2 units of FFP. Juan Manuel drains were positioned within the pericardial well and left pleural cavity. Sternum was reapproximated with interrupted #5 stainless steel wires. Linea alba and fascia were closed with running #1 Vicryl sutures, followed by closure of the subcutaneous tissues with a running 2-0 Vicryl suture. Skin was closed with a 3-0 Vicryl subcuticular stitch. Prior to closure, vancomycin paste had been applied to the sternal halves. Platelet-enriched and platelet-poor plasma had also been applied to the sternal wound. The patient was taken to the ICU. FELICE
[2017-06-12] MEDS: Vancomycin HCl 1 GM in Premix Bag 1 BAG IVPB SCH (19:37)
[2017-06-12] MEDS: Famotidine/PF 20 mg/2ml Vial SLOW IVP SCH (19:37)
[2017-06-12] MEDS: CEFAZOLIN/Water 2 GM/20 ML SYRINGE SLOW IVP SCH (19:37)
[2017-06-12] MEDS ORDERED: Ventilator Sedation Protocol 1 EACH FS SCH (21:45)
[2017-06-12] MEDS ORDERED: Fentanyl CADD 250 ML IVPB SCH (21:53)
[2017-06-12] MEDS ORDERED: Lorazepam 2 MG/ML VIAL SLOW IVP PRN (21:53)
[2017-06-12] MEDS ORDERED: DISCONTINUE PREVIOUS NARCOTIC PAIN MEDICATIONS AND BENZODIAZEPINES FS SCH (21:53)
[2017-06-12] MEDS ORDERED: Fentanyl BOLUS 250 ML IVPB PRN (21:53)
[2017-06-12] MEDS ORDERED: Propofol 1,000 MG/100 ML VIAL IV PRN (21:53)
[2017-06-12] MEDS ORDERED: Morphine 2 MG/ML SYRINGE IVP PRN (21:58)
[2017-06-12 22:30] LABS: Hemoglobin 9.8 g/dL (12.0-16.0)
[2017-06-12 22:43] LABS: Potassium 3.5 mmol/L (3.5-5.1)
[2017-06-13] MEDS: CEFAZOLIN/Water 2 GM/20 ML SYRINGE SLOW IVP SCH ×2 (03:30→11:26)
[2017-06-13 05:21] LABS: #Eosinphils 0.1 thou/uL (0.0-0.7); #Monocytes 0.6 thou/uL (0.11-0.59); #Neutrophils 5.2 thou/uL (1.40-6.50); %Basophils 0.5 % (0.0-1.0); %Eosinophils 0.9 % (0.0-10.0); %Lymphocytes 14.2 % (21.0-51.0); %Neutrophils 76.4 % (42.0-75.0); Hemoglobin 8.8 g/dL (12.0-16.0); Mean Corpuscular HGB CONC 31.7 g/dL (32.0-36.0); Mean Corpuscular Volume 85.3 fl (81.0-99.0); Platelet Count 133 thou/uL (130-400); RBC Distribution Width 16.5 % (11.5-14.5); Red Blood Cell (RBC) Count 3.25 mill/uL (4.20-5.40); White Blood Cell (WBC) Count 6.8 thou/uL (4.8-10.8)
[2017-06-13] MEDS: DOPamine 400 MG/D5W 250 ML 250 ML IVPB PRN (05:34)
[2017-06-13 05:36] LABS: Anion Gap 12 mmol/L (10-20); BUN (Urea Nitrogen) 17 mg/dL (9.8-20.1); Calc. Creatinine Clearance 52 mL/min (70-130); Calcium 8.2 mg/dL (7.8-10.44); Carbon Dioxide 23 mmol/L (23-31); Chloride 113 mmol/L (98-107); Estimated GFR-MDRD 51; Glucose 88 mg/dL (83-110); Potassium 3.8 mmol/L (3.5-5.1); Sodium 144 mmol/L (136-145)
[2017-06-13] MEDS: Potassium Chloride 20 MEQ/100 ML PREMIX BAG IVPB PRN (05:48)
[2017-06-13] MEDS: Levothyroxine Sodium 88 MCG TAB PO SCH (07:04)
[2017-06-13 08:01] LABS: Actual Bicarbonate (HCO3a) 21.5 mEq/L (22-26); Base Excess (BEa) -2.4 mEq/L (0 (+/-) 2.5); CO2 Tension 32.8 mmHg (35.0-45.0); Calcium, Ionized 1.1 mmol/L (1.12-1.30); Hematocrit-ABG 25.5 % (36.0-47.0); Hemoglobin (Hb) 8.1 g/dL (12.0-16.0); O2 Tension (PaO2) 78.5 mmHg (80.0-100.0); pH, Arterial 7.43 (7.35-7.45)
[2017-06-13 08:17] LABS: Puncture Site RBA
[2017-06-13] MEDS ORDERED: HYDROcodone/Acetaminophen 5/325 mg Tablet PO PRN (08:39)
[2017-06-13] MEDS ORDERED: Fentanyl 100 MCG/2 ML VIAL SLOW IVP PRN (08:40)
[2017-06-13] MEDS: Aspirin 325 MG TAB PO SCH (08:55)
[2017-06-13] MEDS: Famotidine/PF 20 mg/2ml Vial SLOW IVP SCH ×2 (08:55→21:17)
[2017-06-13] MEDS: Vancomycin HCl 1 GM in Premix Bag 1 BAG IVPB SCH (08:56)
--- NOTE | 2017-06-13 09:47 | RAD ---
AP VIEW OF CHEST: Date: 06/13/17 HISTORY: Status post open heart surgery. FINDINGS: Comparison made to previous exam from 06/12/17. AP view of chest demonstrates sternotomy wires seen. Cardiomegaly is noted. There is a right subclavi an central line seen. Left-sided chest tube is seen. Pericardial drain is in place. Small bilateral p leural effusions seen. Pulmonary vascular congestion is present. Radiographic appearance of the chest is stable. IMPRESSION: Cardiomegaly and pulmonary vascular congestion. Lines and tubes unchanged in position. POS: [facility]
--- NOTE | 2017-06-13 11:40 | EKG ---
Test Reason : Blood Pressure : / mmHG Vent. Rate : 078 BPM Atrial Rate : 078 BPM P-R Int : 178 ms QRS Dur : 110 ms QT Int : 410 ms P-R-T Axes : 042 048 231 degrees QTc Int : 467 ms Normal sinus rhythm Possible Inferior infarct , age undetermined Possible Anterior infarct , age undetermined Abnormal ECG Confirmed by AMA CHRISTIANSEN D.O. ([id number]), editor news COLLIN WALSH ([id number]) on 06/13/2017 11:40:12 AM Referred By: Confirmed By:AMA CHRISTIANSEN D.O.
[2017-06-13] MEDS ORDERED: Furosemide 40 MG/4 ML VIAL SLOW IVP SCH (13:00)
--- NOTE | 2017-06-13 17:06 | PDOC.PN ---
- Subjective Encounter Start Date: 06/13/17 Encounter Start Time: 17:04 Subjective: feels weak but pain is controlled post CABG. -: no new complaints - Objective MAR Reviewed: Yes Vital Signs & Weight: Vital Signs (12 hours) Temp Pulse Resp BP Pulse Ox 06/13/17 16:00 98.3 F 06/13/17 11:07 100 06/13/17 10:59 98.2 F 06/13/17 08:09 60 16 100 06/13/17 07:23 97.8 F 60 14 94 L 06/13/17 07:00 97.8 F 06/13/17 06:22 68 116/43 L 06/13/17 06:00 10 L Weight Weight 162 lb 7.691 oz Most Recent Monitor Data Heart Rate from ECG 55 NIBP 130/63 NIBP BP-Mean 86 Respiration from ECG 13 SpO2 98 I&O: 06/12/17 06/13/17 06/14/17 06:59 06:59 06:59 Intake Total 2160 1363 1280 Output Total 600 1085 260 Balance 0646 423 2811 Result Diagrams: 06/13/17 04:19 06/13/17 04:19 Additional Labs: Accuchecks 06/13/17 06/13/17 06/13/17 16:20 11:53 08:24 POC Glucose 110 101 87 06/13/17 06/12/17 06/12/17 03:29 23:45 19:35 POC Glucose 103 138 H 134 H 06/12/17 16:58 POC Glucose 123 H Microbiology 06/10/17 15:43 Stool Stool Occult Blood (CARLOZ) - Final Radiology Reviewed by me: Yes (CXR-mils pulm vascular congestion) Phys Exam - Physical Examination Constitutional: NAD weak and tried looking HEENT: PERRLA, moist MMs, sclera anicteric, oral pharynx no lesions Neck: no nodes, no JVD, supple, full ROM Respiratory: no wheezing, no rales, no rhonchi, clear to auscultation bilateral Cardiovascular: RRR, no significant murmur incision site w/o bleed/erythema Gastrointestinal: soft, non-tender, no distention, positive bowel sounds Musculoskeletal: no edema, pulses present Neurological: non-focal, normal sensation, moves all 4 limbs Psychiatric: normal affect, A&O x 3 Dx/Plan (1) NSTEMI (non-ST elevated myocardial infarction) Code(s): I21.4 - NON-ST ELEVATION (NSTEMI) MYOCARDIAL INFARCTION Status: Acute (2) Acute on chronic diastolic (congestive) heart failure Code(s): I50.33 - ACUTE ON CHRONIC DIASTOLIC (CONGESTIVE) HEART FAILURE Status : Acute Comment: Diuresing and feeling better. (3) Coronary artery disease Code(s): I25.10 - ATHSCL HEART DISEASE OF [place] CORONARY ARTERY W/O ANG PCTRS Status: Acute Qualifiers: Coronary Disease-Associated Artery/Lesion type: [place] artery (4) S/P CABG (coronary artery bypass graft) Code(s): Z95.1 - PRESENCE OF AORTOCORONARY BYPASS GRAFT Status: Acute (5) Diabetes type 2, controlled Code(s): E11.9 - TYPE 2 DIABETES MELLITUS WITHOUT COMPLICATIONS Status: Chronic (6) Hypertension Code(s): I10 - ESSENTIAL (PRIMARY) HYPERTENSION Status: Chronic (7) Hypothyroidism Code(s): E03.9 - HYPOTHYROIDISM, UNSPECIFIED Status: Chronic (8) Chronic anemia Code(s): D64.9 - ANEMIA, UNSPECIFIED Status: Chronic Comment: yamil DICKSON.s/ p IV iron (9) Moderate aortic stenosis Code(s): I35.0 - NONRHEUMATIC AORTIC (VALVE) STENOSIS Status: Chronic - Plan PT/OT, out of bed/ambulate, DVT proph w/SCDs s/p CABG X4 vessels 06/12/17.cont p[ost-op care in CCU.CTVS following. -: cont ASA.Chest tub ein place.subclavian in place. -: monitor lytes,H/H.hemodynamically stable. -: BP on softer side. monitor -: lasix X1 for edema on CXR.monitor symptoms * . Review of Systems - Review of Systems Constitutional: weakness, malaise Respiratory: negative: Cough, Dry, Shortness of Breath, Hemoptysis, SOB with Excertion, Pleuritic Pain, Sputum, Wheezing Cardiovascular: negative: chest pain, palpitations, orthopnea, paroxysmal nocturnal dyspnea, edema, light headedness, other Gastrointestinal: negative: Nausea, Vomiting, Abdominal Pain, Diarrhea, Constipation, Melena, Hematochezia, Other Genitourinary: negative: Dysuria, Frequency, Incontinence, Hematuria, Retention , Other Musculoskeletal: negative: Neck Pain, Shoulder Pain, Arm Pain, Back Pain, Hand Pain, Leg Pain, Foot Pain, Other Neurological: negative: Weakness, Numbness, Incoordination, Change in Speech, Confusion, Seizures, Other - Medications/Allergies Allergies/Adverse Reactions: Allergies Allergy/AdvReac Type Severity Reaction Status Date / Time naproxen sodium [From Aleve] Allergy Mild Verified 06/09/17 01:43 Medications: Current Medications Acetaminophen (Tylenol) 650 mg PO Q6H PRN PRN Reason: Headache/Fever Or Mild Pain Hydrocodone Bitart/Acetaminophen ([place] 5/325) 1 tab PO Q4H PRN PRN Reason: Pain Hydrocodone Bitart/Acetaminophen ([place] 5/325) 2 tab PO Q4H PRN PRN Reason: Pain Al Hydroxide/Mg Hydroxide (Maalox) 30 ml PO Q4H PRN PRN Reason: Indigestion Albuterol/Ipratropium (Duoneb) 3 ml NEB [id number] PRN PRN Reason: SHORTNESS OF BREATH Aspirin (Aspirin) 325 mg PO DAILY [facility] Last Admin: 06/13/17 08:55 Dose: 325 mg Bisacodyl (Dulcolax) 10 mg PO Q12H PRN PRN Reason: Constipation Bisacodyl (Dulcolax) 10 mg MN Q12H PRN PRN Reason: Constipation Dextrose/Water (Dextrose 50%) 25 gm SLOW IVP PRN PRN PRN Reason: PER HYPOGLYCEMIC PROTOCOL Famotidine (Pepcid) 20 mg SLOW IVP Q12HR [facility] Last Admin: 06/13/17 08:55 Dose: 20 mg Fentanyl (Sublimaze) 25 mcg SLOW IVP Q4H PRN PRN Reason: Pain Glucagon (Glucagon) 1 mg SC PRN PRN PRN Reason: PER HYPOGLYCEMIC PROTOCOL Guaifenesin/Dextromethorphan (Robitussin Dm) 15 ml PO Q4H PRN PRN Reason: Cough Hydralazine HCl (Apresoline) 10 mg SLOW IVP Q6H PRN PRN Reason: To Maintain SBP< 140mmHG Last Admin: 06/12/17 17:14 Dose: 10 mg Dopamine HCl/Dextrose (Dopamine/D5w) 250 mls @ 0 mls/hr IVPB PRN PRN; Protocol ; Titrate PRN Reason: To maintain SBP > 90 mmHG Last Admin: 06/13/17 05:34 Dose: 250 mls Nicardipine HCl 25 mg/ Sodium (Chloride) 260 mls @ 0 mls/hr IVPB INF PRN; Protocol; Titrate PRN Reason: To Maintain SBP< 140mmHG Nitroglycerin/Dextrose (Nitroglycerin 50 Mg/250 Ml Bot) 250 mls @ 0 mls/hr IVPB PRN PRN; Protocol; Titrate PRN Reason: To Maintain SBP< 140mmHG Sodium Chloride (Normal Saline 0.9%) 1,000 mls @ 40 mls/hr IV .Q24H [place] Last Admin: 06/12/17 17:38 Dose: 1,000 mls Phenylephrine HCl (Scar-Synephrine) 250 mls @ 0 mls/hr IVPB PRN PRN; Protocol; Titrate PRN Reason: To maintain SBP > 90 mmHG Insulin Human Regular 100 (units/ Sodium Chloride) 101 mls @ 0 mls/hr IVPB INF [place]O; As Directed PRN Reason: Protocol Dextrose/Water (D5w) 1,000 mls @ 0 mls/hr IV INF PRN; As Directed PRN Reason: PRN HYPOGLYCEMIC PROTOCOL Insulin Human Regular (Humulin R) 0 units SC Q4H PRN; Protocol PRN Reason: POST OP SLIDING SCALE Last Admin: 06/12/17 23:45 Dose: 2 unit Levothyroxine Sodium (Synthroid) 88 mcg PO 0600 [facility] Last Admin: 06/13/17 07:04 Dose: Not Given Morphine Sulfate (Morphine) 2 mg IVP Q2H PRN PRN Reason: Breakthrough pain Stop: 07/12/17 21:59 Discontinue Previous Narcotic Pain Medications And Benzodiazepines 1 each FS .ONE [facility] Stop: 07/12/17 21:53 Ondansetron HCl (Zofran) 4 mg IVP Q6H PRN PRN Reason: Nausea/Vomiting Potassium Chloride (Kcl) 20 meq IVPB PRN PRN PRN Reason: K level </= 4.0 Last Admin: 06/13/17 05:48 Dose: 20 meq Promethazine HCl (Phenergan) 6.25 mg IM Q4H PRN PRN Reason: Nausea/Vomiting Sodium Chloride (Flush - Normal Saline) 10 ml IVF PRN PRN PRN Reason: Saline Flush
[2017-06-13] MEDS: Sodium Chloride 0.9% 1,000 ML IV SCH (17:51)
[2017-06-13] MEDS: Rosuvastatin 10 MG TAB PO SCH (21:17)
[2017-06-13] MEDS: Insulin Regular 300 UNITS/3 ML VIAL SC PRN (21:17)
[2017-06-14] MEDS: Insulin Regular 300 UNITS/3 ML VIAL SC PRN ×3 (00:44→21:31)
[2017-06-14 05:07] LABS: #Eosinphils 0.2 thou/uL (0.0-0.7); #Lymphocytes 1.2 thou/uL (1.20-3.40); #Monocytes 0.5 thou/uL (0.11-0.59); #Neutrophils 7.1 thou/uL (1.40-6.50); %Basophils 0.4 % (0.0-1.0); %Eosinophils 2.6 % (0.0-10.0); %Lymphocytes 13.4 % (21.0-51.0); %Monocytes 5.5 % (0.0-10.0); Hemoglobin 8.6 g/dL (12.0-16.0); Mean Corpuscular Volume 86.9 fl (81.0-99.0); Mean Platelet Volume 9.3 fL (7.4-10.4); Platelet Count 128 thou/uL (130-400); Red Blood Cell (RBC) Count 3.17 mill/uL (4.20-5.40); White Blood Cell (WBC) Count 9.1 thou/uL (4.8-10.8)
[2017-06-14 05:30] LABS: Anion Gap 13 mmol/L (10-20); BUN (Urea Nitrogen) 23 mg/dL (9.8-20.1); Calc. Creatinine Clearance 33 mL/min (70-130); Carbon Dioxide 22 mmol/L (23-31); Chloride 109 mmol/L (98-107); Estimated GFR-MDRD 28; Glucose 102 mg/dL (83-110); Potassium 3.8 mmol/L (3.5-5.1); Sodium 140 mmol/L (136-145)
[2017-06-14] MEDS: Levothyroxine Sodium 88 MCG TAB PO SCH (07:21)
[2017-06-14] MEDS: Famotidine/PF 20 mg/2ml Vial SLOW IVP SCH ×2 (07:40→21:14)
[2017-06-14] MEDS: Aspirin 325 MG TAB PO SCH (07:40)
[2017-06-14] MEDS: DOPamine 400 MG/D5W 250 ML 250 ML IVPB PRN (07:50)
[2017-06-14] MEDS ORDERED: DOPamine 400 MG/D5W 250 ML 250 ML IVPB SCH (08:00)
[2017-06-14] MEDS: HYDROcodone/Acetaminophen 5/325 mg Tablet PO PRN (09:27)
--- NOTE | 2017-06-14 10:05 | RAD ---
AP VIEW CHEST: Date: 06/14/17 HISTORY: Postoperative radiograph. FINDINGS: Comparison made to previous exam from 06/13/17. AP view of chest demonstrates interval extubation of the patient. Right subclavian central line is se en. Sternotomy wires seen. Mediastinal and pericardial drains are in place. Cardiomegaly is seen. Sma ll bilateral pleural effusions seen. Mild pulmonary vascular congestion is seen. IMPRESSION: Interval extubation of the patient. Otherwise unchanged. POS: [facility]
[2017-06-14] MEDS: Sodium Chloride 0.9% 1,000 ML IV SCH (11:11)
--- NOTE | 2017-06-14 15:11 | PDOC.PN ---
- Subjective Encounter Start Date: 06/14/17 Encounter Start Time: 15:09 Subjective: feels weak and tired.wants to rest -: at bedside.care discussed - Objective MAR Reviewed: Yes Vital Signs & Weight: Vital Signs (12 hours) Temp Pulse Resp Pulse Ox 06/14/17 12:00 98.8 F 06/14/17 09:58 98 06/14/17 08:00 97.0 F L 06/14/17 07:51 97 F L 59 L 17 100 06/14/17 05:06 97 06/14/17 04:00 97.6 F Weight Weight 169 lb 15.622 oz Most Recent Monitor Data Heart Rate from ECG 68 NIBP 140/74 NIBP BP-Mean 95 Respiration from ECG 16 SpO2 97 I&O: 06/13/17 06/14/17 06/15/17 06:59 06:59 06:59 Intake Total 1363 2090 350 Output Total 1085 555 184 Balance 278 1535 166 Result Diagrams: 06/14/17 03:40 06/14/17 03:40 Additional Labs: Accuchecks 06/14/17 06/14/17 06/14/17 11:52 07:45 03:47 POC Glucose 147 H 84 111 H 06/14/17 06/13/17 06/13/17 00:19 21:09 16:20 POC Glucose 146 H 172 H 110 Laboratory Tests 06/08/17 06/11/17 06/12/17 17:30 05:51 16:56 Creatinine 0.83 0.85 0.78 06/13/17 06/14/17 04:19 03:40 Creatinine 1.05 1.74 H Phys Exam - Physical Examination Constitutional: NAD weak looking HEENT: PERRLA, moist MMs, sclera anicteric, oral pharynx no lesions Neck: no nodes, no JVD, supple, full ROM Respiratory: no wheezing, no rales, no rhonchi, clear to auscultation bilateral Cardiovascular: RRR, no significant murmur surgical incision w/o discharge/bleeding Gastrointestinal: soft, non-tender, no distention, positive bowel sounds Musculoskeletal: no edema, pulses present Neurological: non-focal, normal sensation, moves all 4 limbs Psychiatric: normal affect, A&O x 3 Dx/Plan (1) NSTEMI (non-ST elevated myocardial infarction) Code(s): I21.4 - NON-ST ELEVATION (NSTEMI) MYOCARDIAL INFARCTION Status: Acute (2) Acute on chronic diastolic (congestive) heart failure Code(s): I50.33 - ACUTE ON CHRONIC DIASTOLIC (CONGESTIVE) HEART FAILURE Status : Acute Comment: Diuresing and feeling better. (3) Coronary artery disease Code(s): I25.10 - ATHSCL HEART DISEASE OF [place] CORONARY ARTERY W/O ANG PCTRS Status: Acute Qualifiers: Coronary Disease-Associated Artery/Lesion type: [place] artery (4) S/P CABG (coronary artery bypass graft) Code(s): Z95.1 - PRESENCE OF AORTOCORONARY BYPASS GRAFT Status: Acute (5) Diabetes type 2, controlled Code(s): E11.9 - TYPE 2 DIABETES MELLITUS WITHOUT COMPLICATIONS Status: Chronic (6) Hypertension Code(s): I10 - ESSENTIAL (PRIMARY) HYPERTENSION Status: Chronic (7) Hypothyroidism Code(s): E03.9 - HYPOTHYROIDISM, UNSPECIFIED Status: Chronic (8) Chronic anemia Code(s): D64.9 - ANEMIA, UNSPECIFIED Status: Chronic Comment: yamil DICKSON.s/ p IV iron (9) Moderate aortic stenosis Code(s): I35.0 - NONRHEUMATIC AORTIC (VALVE) STENOSIS Status: Chronic - Plan DVT proph w/SCDs cont post CABG care. -: started on dopamine for low urine output.cont lasix as tolerated. -: follow CTVS recs for now. -: hemodynamically stable. -: am labs * . Review of Systems - Review of Systems Constitutional: weakness, malaise. negative: fever, chills, sweats, other Respiratory: Cough. negative: Dry, Shortness of Breath, Hemoptysis, SOB with Excertion, Pleuritic Pain, Sputum, Wheezing Cardiovascular: negative: chest pain, palpitations, orthopnea, paroxysmal nocturnal dyspnea, edema, light headedness, other Gastrointestinal: negative: Nausea, Vomiting, Abdominal Pain, Diarrhea, Constipation, Melena, Hematochezia, Other Genitourinary: negative: Dysuria, Frequency, Incontinence, Hematuria, Retention , Other Musculoskeletal: negative: Neck Pain, Shoulder Pain, Arm Pain, Back Pain, Hand Pain, Leg Pain, Foot Pain, Other Neurological: negative: Weakness, Numbness, Incoordination, Change in Speech, Confusion, Seizures, Other - Medications/Allergies Allergies/Adverse Reactions: Allergies Allergy/AdvReac Type Severity Reaction Status Date / Time naproxen sodium [From Aleve] Allergy Mild Verified 06/09/17 01:43 Medications: Current Medications Acetaminophen (Tylenol) 650 mg PO Q6H PRN PRN Reason: Headache/Fever Or Mild Pain Hydrocodone Bitart/Acetaminophen ([place] 5/325) 1 tab PO Q4H PRN PRN Reason: Pain Hydrocodone Bitart/Acetaminophen ([place] 5/325) 2 tab PO Q4H PRN PRN Reason: Pain Last Admin: 06/14/17 09:27 Dose: 2 tab Al Hydroxide/Mg Hydroxide (Maalox) 30 ml PO Q4H PRN PRN Reason: Indigestion Albuterol/Ipratropium (Duoneb) 3 ml NEB [id number] PRN PRN Reason: SHORTNESS OF BREATH Aspirin (Aspirin) 325 mg PO DAILY [facility] Last Admin: 06/14/17 07:40 Dose: 325 mg Bisacodyl (Dulcolax) 10 mg PO Q12H PRN PRN Reason: Constipation Bisacodyl (Dulcolax) 10 mg MA Q12H PRN PRN Reason: Constipation Dextrose/Water (Dextrose 50%) 25 gm SLOW IVP PRN PRN PRN Reason: PER HYPOGLYCEMIC PROTOCOL Famotidine (Pepcid) 20 mg SLOW IVP Q12HR [facility] Last Admin: 06/14/17 07:40 Dose: 20 mg Fentanyl (Sublimaze) 25 mcg SLOW IVP Q4H PRN PRN Reason: Pain Glucagon (Glucagon) 1 mg SC PRN PRN PRN Reason: PER HYPOGLYCEMIC PROTOCOL Guaifenesin/Dextromethorphan (Robitussin Dm) 15 ml PO Q4H PRN PRN Reason: Cough Hydralazine HCl (Apresoline) 10 mg SLOW IVP Q6H PRN PRN Reason: To Maintain SBP< 140mmHG Last Admin: 06/12/17 17:14 Dose: 10 mg Dopamine HCl/Dextrose (Dopamine/D5w) 250 mls @ 0 mls/hr IVPB PRN PRN; Protocol ; Titrate PRN Reason: To maintain SBP > 90 mmHG Last Admin: 06/14/17 07:50 Dose: 250 mls Nicardipine HCl 25 mg/ Sodium (Chloride) 260 mls @ 0 mls/hr IVPB INF PRN; Protocol; Titrate PRN Reason: To Maintain SBP< 140mmHG Nitroglycerin/Dextrose (Nitroglycerin 50 Mg/250 Ml Bot) 250 mls @ 0 mls/hr IVPB PRN PRN; Protocol; Titrate PRN Reason: To Maintain SBP< 140mmHG Sodium Chloride (Normal Saline 0.9%) 1,000 mls @ 40 mls/hr IV .Q24H [facility] Last Admin: 06/14/17 11:11 Dose: Not Given Phenylephrine HCl (Scar-Synephrine) 250 mls @ 0 mls/hr IVPB PRN PRN; Protocol; Titrate PRN Reason: To maintain SBP > 90 mmHG Insulin Human Regular 100 (units/ Sodium Chloride) 101 mls @ 0 mls/hr IVPB INF [place]; As Directed PRN Reason: Protocol Dextrose/Water (D5w) 1,000 mls @ 0 mls/hr IV INF PRN; As Directed PRN Reason: PRN HYPOGLYCEMIC PROTOCOL Dopamine HCl/Dextrose (Dopamine/D5w) 250 mls @ 7.228 mls/hr IVPB INF [place]; 2.5 MCG/KG/MIN PRN Reason: Protocol Insulin Human Regular (Humulin R) 0 units SC Q4H PRN; Protocol PRN Reason: POST OP SLIDING SCALE Last Admin: 06/14/17 00:44 Dose: 3 unit Levothyroxine Sodium (Synthroid) 88 mcg PO 0600 [facility] Last Admin: 06/14/17 07:21 Dose: 88 mcg Morphine Sulfate (Morphine) 2 mg IVP Q2H PRN PRN Reason: Breakthrough pain Stop: 07/12/17 21:59 Discontinue Previous Narcotic Pain Medications And Benzodiazepines 1 each FS .ONE [facility] Stop: 07/12/17 21:53 Ondansetron HCl (Zofran) 4 mg IVP Q6H PRN PRN Reason: Nausea/Vomiting Potassium Chloride (Kcl) 20 meq IVPB PRN PRN PRN Reason: K level </= 4.0 Last Admin: 06/13/17 05:48 Dose: 20 meq Promethazine HCl (Phenergan) 6.25 mg IM Q4H PRN PRN Reason: Nausea/Vomiting Rosuvastatin Calcium (Crestor) 10 mg PO HS [facility] Last Admin: 06/13/17 21:17 Dose: 10 mg Sodium Chloride (Flush - Normal Saline) 10 ml IVF PRN PRN PRN Reason: Saline Flush
[2017-06-14] MEDS ORDERED: methylPREDNISolone Sod Succ/PF 125 MG/2 ML VIAL IVP SCH (21:00)
[2017-06-14] MEDS: guaiFENesin ER 600 MG TAB PO SCH (21:15)
[2017-06-14] MEDS: Rosuvastatin 10 MG TAB PO SCH (21:15)
[2017-06-15] MEDS: Insulin Regular 300 UNITS/3 ML VIAL SC PRN ×6 (00:13→20:27)
[2017-06-15] MEDS: hydrALAZINE 20 MG/ML VIAL SLOW IVP PRN ×2 (02:17→07:43)
[2017-06-15 05:08] LABS: #Basophils 0.1 thou/uL (0.0-0.2); #Lymphocytes 0.3 thou/uL (1.20-3.40); #Monocytes 0.2 thou/uL (0.11-0.59); #Neutrophils 7.4 thou/uL (1.40-6.50); %Basophils 0.9 % (0.0-1.0); %Eosinophils 0.3 % (0.0-10.0); %Lymphocytes 4.3 % (21.0-51.0); %Monocytes 2.6 % (0.0-10.0); %Neutrophils 91.9 % (42.0-75.0); Hemoglobin 8.8 g/dL (12.0-16.0); Mean Corpuscular HGB CONC 31.4 g/dL (32.0-36.0); Mean Corpuscular Hemoglobin 27.2 pg (27.0-31.0); Mean Corpuscular Volume 86.5 fl (81.0-99.0); Mean Platelet Volume 8.6 fL (7.4-10.4); Platelet Count 126 thou/uL (130-400); RBC Distribution Width 18.1 % (11.5-14.5); Red Blood Cell (RBC) Count 3.25 mill/uL (4.20-5.40)
[2017-06-15 05:26] LABS: Anion Gap 12 mmol/L (10-20); BUN (Urea Nitrogen) 29 mg/dL (9.8-20.1); Calc. Creatinine Clearance 31 mL/min (70-130); Calcium 8.1 mg/dL (7.8-10.44); Carbon Dioxide 22 mmol/L (23-31); Chloride 108 mmol/L (98-107); Estimated GFR-MDRD 26; Glucose 161 mg/dL (83-110); Potassium 3.8 mmol/L (3.5-5.1); Sodium 138 mmol/L (136-145)
[2017-06-15] MEDS: Levothyroxine Sodium 88 MCG TAB PO SCH (06:02)
[2017-06-15] MEDS: guaiFENesin ER 600 MG TAB PO SCH ×2 (07:43→20:24)
[2017-06-15] MEDS: Famotidine/PF 20 mg/2ml Vial SLOW IVP SCH ×2 (07:43→20:25)
[2017-06-15] MEDS: Aspirin 325 MG TAB PO SCH (07:44)
[2017-06-15] MEDS: Potassium Chloride 20 MEQ/100 ML PREMIX BAG IVPB PRN (07:47)
--- NOTE | 2017-06-15 09:35 | RAD ---
AP VIEW CHEST: Date: 06/15/17 HISTORY: Open heart surgery. FINDINGS: Comparison made to previous exam from 06/14/17. AP view of chest demonstrates sternotomy wires seen. Pericardial and left-sided chest tubes seen. A r ight subclavian central line is seen with distal tip overlying the right atrium. Cardiomegaly is note d. A small left-sided pleural effusion is seen. The right lung base appears to have improved aeration with decreased right-sided effusion. IMPRESSION: 1. No evidence of a pneumothorax. 2. Cardiomegaly. POS: [facility]
[2017-06-15] MEDS ORDERED: Furosemide 20 MG/2 ML VIAL SLOW IVP SCH (10:00)
--- NOTE | 2017-06-15 12:26 | EKG ---
Test Reason : POST CABG Blood Pressure : / mmHG Vent. Rate : 055 BPM Atrial Rate : 055 BPM P-R Int : 000 ms QRS Dur : 120 ms QT Int : 558 ms P-R-T Axes : 068 070 247 degrees QTc Int : 533 ms Sinus bradycardia Non-specific intra-ventricular conduction delay Abnormal ECG Confirmed by ALYSIA CAMACHO ([id number]) on 06/15/2017 12:26:18 PM Referred By: SU Confirmed By:ALYSIA CAMACHO
[2017-06-15] MEDS ORDERED: Furosemide 40 MG/4 ML VIAL SLOW IVP SCH ×2 (12:30→20:45)
--- NOTE | 2017-06-15 12:58 | PDOC.PN ---
- Subjective Encounter Start Date: 06/15/17 Encounter Start Time: 12:56 Subjective: feels much better today.eating better.able to sit up for hour or more. -: pain better controlled - Objective MAR Reviewed: Yes Vital Signs & Weight: Vital Signs (12 hours) Temp Pulse Resp BP Pulse Ox 06/15/17 12:00 98.5 F 06/15/17 11:00 98.5 F 06/15/17 08:00 98.3 F 75 16 98 06/15/17 07:43 75 199/80 H 06/15/17 07:00 98.6 F 06/15/17 04:00 98.7 F 06/15/17 02:17 75 199/80 H Weight Weight 169 lb 8 oz Most Recent Monitor Data Heart Rate from ECG 73 NIBP 133/52 NIBP BP-Mean 64 Respiration from ECG 0 SpO2 96 I&O: 06/14/17 06/15/17 06/16/17 06:59 06:59 06:59 Intake Total 2090 878.1 1300 Output Total 555 944 175 Balance 1535 -65.9 1125 Result Diagrams: 06/15/17 04:17 06/15/17 04:17 Additional Labs: Accuchecks 06/15/17 06/14/17 07:55 17:14 POC Glucose 154 H 140 H Laboratory Tests 06/08/17 06/11/17 06/12/17 17:30 05:51 16:56 Creatinine 0.83 0.85 0.78 06/13/17 06/14/17 06/15/17 04:19 03:40 04:17 Creatinine 1.05 1.74 H 1.88 H Phys Exam - Physical Examination Constitutional: NAD sitting up in chair HEENT: PERRLA, moist MMs, sclera anicteric, oral pharynx no lesions Neck: no nodes, no JVD, supple, full ROM Respiratory: no wheezing, no rhonchi, clear to auscultation bilateral bibasilar carckles Cardiovascular: RRR, no significant murmur incision site w clean dressing Gastrointestinal: soft, non-tender, no distention, positive bowel sounds Musculoskeletal: no edema, pulses present Neurological: non-focal, normal sensation, moves all 4 limbs Psychiatric: normal affect, A&O x 3 Dx/Plan (1) NSTEMI (non-ST elevated myocardial infarction) Code(s): I21.4 - NON-ST ELEVATION (NSTEMI) MYOCARDIAL INFARCTION Status: Acute (2) Acute on chronic diastolic (congestive) heart failure Code(s): I50.33 - ACUTE ON CHRONIC DIASTOLIC (CONGESTIVE) HEART FAILURE Status : Acute Comment: Diuresing and feeling better. (3) Coronary artery disease Code(s): I25.10 - ATHSCL HEART DISEASE OF [place] CORONARY ARTERY W/O ANG PCTRS Status: Acute Qualifiers: Coronary Disease-Associated Artery/Lesion type: [place] artery (4) S/P CABG (coronary artery bypass graft) Code(s): Z95.1 - PRESENCE OF AORTOCORONARY BYPASS GRAFT Status: Acute (5) Diabetes type 2, controlled Code(s): E11.9 - TYPE 2 DIABETES MELLITUS WITHOUT COMPLICATIONS Status: Chronic (6) Hypertension Code(s): I10 - ESSENTIAL (PRIMARY) HYPERTENSION Status: Chronic (7) Hypothyroidism Code(s): E03.9 - HYPOTHYROIDISM, UNSPECIFIED Status: Chronic (8) Chronic anemia Code(s): D64.9 - ANEMIA, UNSPECIFIED Status: Chronic Comment: yamil DICKSON.s/ p IV iron (9) Moderate aortic stenosis Code(s): I35.0 - NONRHEUMATIC AORTIC (VALVE) STENOSIS Status: Chronic - Plan plan discussed w/ family, segovia catheter, PT/OT, administrator social welfare, incentive spirometry, out of bed/ambulate Chest tube in place.CTVS following.cont ASA,BB. -: Decreased Urine Output.was on Dopamine but switched off d/t High BP. -: will try 1 dose lasix as crackles on exam as well. -: hemodynmically stable .cardiology following -: am labs.monitor lytes,H/H etc * . Review of Systems - Review of Systems Constitutional: weakness, malaise Respiratory: Cough. negative: Dry, Shortness of Breath, Hemoptysis, SOB with Excertion, Pleuritic Pain, Sputum, Wheezing Cardiovascular: negative: chest pain, palpitations, orthopnea, paroxysmal nocturnal dyspnea, edema, light headedness, other Gastrointestinal: negative: Nausea, Vomiting, Abdominal Pain, Diarrhea, Constipation, Melena, Hematochezia, Other Genitourinary: negative: Dysuria, Frequency, Incontinence, Hematuria, Retention , Other Musculoskeletal: negative: Neck Pain, Shoulder Pain, Arm Pain, Back Pain, Hand Pain, Leg Pain, Foot Pain, Other Neurological: negative: Weakness, Numbness, Incoordination, Change in Speech, Confusion, Seizures, Other - Medications/Allergies Allergies/Adverse Reactions: Allergies Allergy/AdvReac Type Severity Reaction Status Date / Time naproxen sodium [From Aleve] Allergy Mild Verified 06/09/17 01:43 Medications: Current Medications Acetaminophen (Tylenol) 650 mg PO Q6H PRN PRN Reason: Headache/Fever Or Mild Pain Hydrocodone Bitart/Acetaminophen ([place] 5/325) 1 tab PO Q4H PRN PRN Reason: Pain Hydrocodone Bitart/Acetaminophen ([place] 5/325) 2 tab PO Q4H PRN PRN Reason: Pain Last Admin: 06/14/17 09:27 Dose: 2 tab Al Hydroxide/Mg Hydroxide (Maalox) 30 ml PO Q4H PRN PRN Reason: Indigestion Albuterol/Ipratropium (Duoneb) 3 ml NEB [id number] PRN PRN Reason: SHORTNESS OF BREATH Aspirin (Aspirin) 325 mg PO DAILY [facility] Last Admin: 06/15/17 07:44 Dose: 325 mg Bisacodyl (Dulcolax) 10 mg PO Q12H PRN PRN Reason: Constipation Bisacodyl (Dulcolax) 10 mg [place] Q12H PRN PRN Reason: Constipation Carvedilol (Coreg) 3.125 mg PO BID-WM [facility] Dextrose/Water (Dextrose 50%) 25 gm SLOW IVP PRN PRN PRN Reason: PER HYPOGLYCEMIC PROTOCOL Enoxaparin Sodium (Lovenox) 30 mg SC 2100 [facility] Famotidine (Pepcid) 20 mg SLOW IVP Q12HR [facility] Last Admin: 06/15/17 07:43 Dose: 20 mg Fentanyl (Sublimaze) 25 mcg SLOW IVP Q4H PRN PRN Reason: Pain Furosemide (Lasix) 40 mg SLOW IVP 1230 [facility] Stop: 06/15/17 14:30 Last Admin: 06/15/17 12:19 Dose: 40 mg Glucagon (Glucagon) 1 mg SC PRN PRN PRN Reason: PER HYPOGLYCEMIC PROTOCOL Guaifenesin (Mucinex) 1,200 mg PO Q12HR [facility] Last Admin: 12/25/17 07:43 Dose: 1,200 mg Guaifenesin/Dextromethorphan (Robitussin Dm) 15 ml PO Q4H PRN PRN Reason: Cough Hydralazine HCl (Apresoline) 10 mg SLOW IVP Q6H PRN PRN Reason: To Maintain SBP< 140mmHG Last Admin: 06/15/17 07:43 Dose: 10 mg Nicardipine HCl 25 mg/ Sodium (Chloride) 260 mls @ 0 mls/hr IVPB INF PRN; Protocol; Titrate PRN Reason: To Maintain SBP< 140mmHG Nitroglycerin/Dextrose (Nitroglycerin 50 Mg/250 Ml Bot) 250 mls @ 0 mls/hr IVPB PRN PRN; Protocol; Titrate PRN Reason: To Maintain SBP< 140mmHG Phenylephrine HCl (Scar-Synephrine) 250 mls @ 0 mls/hr IVPB PRN PRN; Protocol; Titrate PRN Reason: To maintain SBP > 90 mmHG Insulin Human Regular 100 (units/ Sodium Chloride) 101 mls @ 0 mls/hr IVPB INF [place]; As Directed PRN Reason: Protocol Dextrose/Water (D5w) 1,000 mls @ 0 mls/hr IV INF PRN; As Directed PRN Reason: PRN HYPOGLYCEMIC PROTOCOL Insulin Human Regular (Humulin R) 0 units SC Q4H PRN; Protocol PRN Reason: POST OP SLIDING SCALE Last Admin: 06/15/17 11:31 Dose: 8 unit Levothyroxine Sodium (Synthroid) 88 mcg PO 0600 [facility] Last Admin: 06/15/17 06:02 Dose: 88 mcg Morphine Sulfate (Morphine) 2 mg IVP Q2H PRN PRN Reason: Breakthrough pain Stop: 07/12/17 21:59 Discontinue Previous Narcotic Pain Medications And Benzodiazepines 1 each FS .ONE [facility] Stop: 07/12/17 21:53 Ondansetron HCl (Zofran) 4 mg IVP Q6H PRN PRN Reason: Nausea/Vomiting Potassium Chloride (Kcl) 20 meq IVPB PRN PRN PRN Reason: K level </= 4.0 Last Admin: 06/15/17 07:47 Dose: 20 meq Promethazine HCl (Phenergan) 6.25 mg IM Q4H PRN PRN Reason: Nausea/Vomiting Rosuvastatin Calcium (Crestor) 10 mg PO HS [facility] Last Admin: 06/14/17 21:15 Dose: 10 mg Sodium Chloride (Flush - Normal Saline) 10 ml IVF PRN PRN PRN Reason: Saline Flush
[2017-06-15] MEDS ORDERED: diphenhydrAMINE 25 MG CAP PO PRN (13:38)
[2017-06-15] MEDS: Carvedilol 3.125 MG TAB PO SCH (17:02)
[2017-06-15] MEDS: Rosuvastatin 10 MG TAB PO SCH (20:25)
[2017-06-15] MEDS: Enoxaparin Sodium 30 MG/0.3 ML SYRINGE SC SCH (20:26)
[2017-06-15] MEDS: Silver Sulfadiazine 1% Cream 50 GM JAR TOP SCH (20:27)
[2017-06-16 06:03] LABS: Anion Gap 10 mmol/L (10-20); BUN (Urea Nitrogen) 40 mg/dL (9.8-20.1); Calc. Creatinine Clearance 30 mL/min (70-130); Calcium 7.9 mg/dL (7.8-10.44); Carbon Dioxide 24 mmol/L (23-31); Chloride 108 mmol/L (98-107); Estimated GFR-MDRD 25; Glucose 75 mg/dL (83-110); Potassium 3.5 mmol/L (3.5-5.1); Sodium 138 mmol/L (136-145)
[2017-06-16] MEDS: Levothyroxine Sodium 88 MCG TAB PO SCH (06:51)
[2017-06-16] MEDS: Carvedilol 3.125 MG TAB PO SCH ×3 (08:39→21:14)
[2017-06-16] MEDS: guaiFENesin ER 600 MG TAB PO SCH ×2 (08:39→21:14)
[2017-06-16] MEDS: Aspirin 325 MG TAB PO SCH (08:40)
[2017-06-16] MEDS: Famotidine/PF 20 mg/2ml Vial SLOW IVP SCH (08:40)
[2017-06-16] MEDS: Silver Sulfadiazine 1% Cream 50 GM JAR TOP SCH ×2 (08:48→21:14)
[2017-06-16] MEDS: diphenhydrAMINE 25 MG CAP PO PRN ×2 (12:32→17:50)
[2017-06-16] MEDS: Insulin Regular 300 UNITS/3 ML VIAL SC PRN ×2 (12:36→21:17)
--- NOTE | 2017-06-16 13:31 | PDOC.PN ---
- Subjective Encounter Start Date: 06/16/17 Encounter Start Time: 13:31 -: non-verbal, old records requested/rev Subjective: Pt seen and examind , S/p CABG x3 -: C/o Generalized itchyness after Hydrocodone -: Pt denies any CP, N/V/D, no fever, feeling weak - Objective MAR Reviewed: Yes Vital Signs & Weight: Vital Signs (12 hours) Temp Pulse Ox 06/16/17 11:41 98 06/16/17 07:35 97.6 F 06/16/17 04:00 97.5 F L 06/16/17 02:53 95 Weight Weight 173 lb 15.115 oz Most Recent Monitor Data Heart Rate from ECG 72 NIBP 131/58 NIBP BP-Mean 68 Respiration from ECG 16 SpO2 98 I&O: 06/15/17 06/16/17 06/17/17 06:59 06:59 06:59 Intake Total 878.1 1840 350 Output Total 944 765 50 Balance -65.9 1075 300 Result Diagrams: 06/15/17 04:17 06/16/17 05:15 Additional Labs: Accuchecks 06/16/17 06/15/17 06/15/17 12:35 15:53 00:11 POC Glucose 223 H 244 H 164 H 06/14/17 21:19 POC Glucose 161 H Radiology Reviewed by me: Yes EKG Reviewed by me: Yes Phys Exam - Physical Examination look pale and frail HEENT: PERRLA, moist MMs, sclera anicteric, TM's clear, oral pharynx no lesions , 2+ tonsils Cardiovascular: RRR, no significant murmur, no rub, gallop, irregular Gastrointestinal: soft, non-tender, no distention, positive bowel sounds Musculoskeletal: no edema, pulses present, edema present Neurological: non-focal, normal sensation, moves all 4 limbs SKIN showed Erythematous changes Lymphatic: no nodes Dx/Plan (1) Acute on chronic diastolic (congestive) heart failure Code(s): I50.33 - ACUTE ON CHRONIC DIASTOLIC (CONGESTIVE) HEART FAILURE Status : Acute Comment: Diuresing and feeling better. (2) Coronary artery disease Code(s): I25.10 - ATHSCL HEART DISEASE OF [place] CORONARY ARTERY W/O ANG PCTRS Status: Acute Qualifiers: Coronary Disease-Associated Artery/Lesion type: [place] artery (3) NSTEMI (non-ST elevated myocardial infarction) Code(s): I21.4 - NON-ST ELEVATION (NSTEMI) MYOCARDIAL INFARCTION Status: Acute (4) Normocytic anemia Code(s): D64.9 - ANEMIA, UNSPECIFIED Status: Acute Comment: Developed since 2017, uncertain eitiology, no renal failure, low iron levels, neg hemoccult. Suspect GI blood loss though not actively. Will need GI w/u as outpatient. (5) S/P CABG (coronary artery bypass graft) Code(s): Z95.1 - PRESENCE OF AORTOCORONARY BYPASS GRAFT Status: Acute (6) Chronic anemia Code(s): D64.9 - ANEMIA, UNSPECIFIED Status: Chronic Comment: yamil DICKSON.s/ p IV iron (7) Moderate aortic stenosis Code(s): I35.0 - NONRHEUMATIC AORTIC (VALVE) STENOSIS Status: Chronic (8) Psoriasis Code(s): L40.9 - PSORIASIS, UNSPECIFIED Status: Acute (9) Rash Code(s): R21 - RASH AND OTHER NONSPECIFIC SKIN ERUPTION Status: Acute - Plan plan discussed w/ family, respiratory therapy, incentive spirometry, out of bed/ ambulate, DVT proph w/heparin Plan 1)Plan discussed w/ family, segovia catheter, PT/OT, social media coordinator, incentive spirometry, out of bed/ambulate Chest tube in place.CTVS following.cont ASA,BB. 2) PT consulted 3) Disposition to Rehab 4)Benadryl 25mg PRN for Itching DVT Prophylaxis Heparin
[2017-06-16 15:21] LABS: Actual Bicarbonate (HCO3v) 24 mEq/L (22-26); Base Excess -0.4 mEq/L (0 (+/- 2.5)); Calcium, Ionized 0.83 mmol/L (1.16-1.32); Chloride (ABG LAB) 104 mmol/L (98-106); Hemoglobin (Hb) 5.9 g/dL (11.7-16.1); Potassium - ABG Lab 3.1 mmol/L (3.70-5.30); Sodium 140.8 mmol/L (133-146); pH (venous) 7.42 (7.35-7.45)
[2017-06-16 15:22] LABS: Actual Bicarbonate (HCO3a) 25.1 mEq/L (22-26); Base Excess (BEa) 1.1 mEq/L (0 (+/-) 2.5); CO2 Tension 36.5 mmHg (35.0-45.0); Hematocrit-ABG 19.9 % (36.0-47.0); O2 Tension (PaO2) 327.7 mmHg (80.0-100.0); pH, Arterial 7.46 (7.35-7.45)
[2017-06-16 15:22] LABS: Actual Bicarbonate (HCO3a) 24.2 mEq/L (22-26); Base Excess (BEa) 0.9 mEq/L (0 (+/-) 2.5); CO2 Tension 32.4 mmHg (35.0-45.0); Hematocrit-ABG 22.4 % (36.0-47.0); Hemoglobin (Hb) 6.7 g/dL (12.0-16.0); O2 Tension (PaO2) 438.8 mmHg (80.0-100.0); pH, Arterial 7.49 (7.35-7.45)
[2017-06-16 15:23] LABS: Actual Bicarbonate (HCO3a) 22.6 mEq/L (22-26); Base Excess (BEa) -0.7 mEq/L (0 (+/-) 2.5); Calcium, Ionized 0.7 mmol/L (1.12-1.30); Hematocrit-ABG 20.8 % (36.0-47.0); Hemoglobin (Hb) 6.8 g/dL (12.0-16.0); O2 Tension (PaO2) 261.7 mmHg (80.0-100.0); pH, Arterial 7.48 (7.35-7.45)
[2017-06-16 15:24] LABS: Actual Bicarbonate (HCO3a) 22.2 mEq/L (22-26); Base Excess (BEa) -1.2 mEq/L (0 (+/-) 2.5); CO2 Tension 30.3 mmHg (35.0-45.0); Calcium, Ionized 0.8 mmol/L (1.12-1.30); Hematocrit-ABG 18.8 % (36.0-47.0); Hemoglobin (Hb) 5.8 g/dL (12.0-16.0); O2 Tension (PaO2) 430.8 mmHg (80.0-100.0); pH, Arterial 7.48 (7.35-7.45)
[2017-06-16 15:24] LABS: Actual Bicarbonate (HCO3a) 23.9 mEq/L (22-26); Base Excess (BEa) 0.1 mEq/L (0 (+/-) 2.5); CO2 Tension 34.6 mmHg (35.0-45.0); Calcium, Ionized 0.9 mmol/L (1.12-1.30); Hematocrit-ABG 23.8 % (36.0-47.0); Hemoglobin (Hb) 7.7 g/dL (12.0-16.0); O2 Tension (PaO2) 403.4 mmHg (80.0-100.0); pH, Arterial 7.46 (7.35-7.45)
[2017-06-16] MEDS: HYDROcodone/Acetaminophen 5/325 mg Tablet PO PRN (15:25)
[2017-06-16] MEDS: traMADol HCl 50 MG TAB PO PRN (17:50)
[2017-06-16] MEDS: Rosuvastatin 10 MG TAB PO SCH (21:14)
[2017-06-16] MEDS: Enoxaparin Sodium 30 MG/0.3 ML SYRINGE SC SCH (21:14)
[2017-06-17 06:23] LABS: Anion Gap 10 mmol/L (10-20); BUN (Urea Nitrogen) 47 mg/dL (9.8-20.1); Calc. Creatinine Clearance 27 mL/min (70-130); Calcium 8.2 mg/dL (7.8-10.44); Carbon Dioxide 25 mmol/L (23-31); Chloride 108 mmol/L (98-107); Estimated GFR-MDRD 22; Glucose 76 mg/dL (83-110); Potassium 4.4 mmol/L (3.5-5.1); Sodium 139 mmol/L (136-145)
[2017-06-17] MEDS: Levothyroxine Sodium 88 MCG TAB PO SCH (06:23)
[2017-06-17 08:14] LABS: Analyzer IN Cardio OR; Puncture Site ALINE
[2017-06-17 08:14] LABS: Analyzer IN Cardio OR; Puncture Site ALINE
[2017-06-17 08:15] LABS: Analyzer IN Cardio OR; Puncture Site ALINE
[2017-06-17 08:15] LABS: Analyzer IN Cardio OR
[2017-06-17 08:16] LABS: Analyzer IN Cardio OR; Puncture Site ALINE
[2017-06-17 08:16] LABS: Analyzer IN Cardio OR; Puncture Site ALINE
[2017-06-17] MEDS: guaiFENesin ER 600 MG TAB PO SCH (09:06)
[2017-06-17] MEDS: Aspirin 325 MG TAB PO SCH (09:06)
[2017-06-17] MEDS: Famotidine 20 MG TAB PO SCH (09:06)
[2017-06-17] MEDS: Carvedilol 3.125 MG TAB PO SCH ×3 (09:06→19:46)
--- NOTE | 2017-06-17 09:13 | PRG ---
DATE OF SERVICE: 06/17/2017 SUBJECTIVE: Ms. Sung is sitting up in chair, doing well. No complaints. No chest pain or pressure . PHYSICAL EXAMINATION: VITAL SIGNS: Blood pressure 122/66, pulse is 70 and it is regular. LUNGS: Clear. CARDIAC: Normal S1, S2. ASSESSMENT: 1. Status post coronary artery bypass grafting. 2. Mild to moderate aortic stenosis. 3. History of hypertension. PLAN: 1. Continue beta blockers. 2. Aspirin. 3. Continue mobilize the patient, continues to improve.
[2017-06-17] MEDS: Silver Sulfadiazine 1% Cream 50 GM JAR TOP SCH ×2 (09:36→19:47)
[2017-06-17] MEDS: Albumin 25% 25 GM/100 ML BOT IVPB SCH ×3 (09:44→19:46)
[2017-06-17 10:39] LABS: Bilirubin Negative (Negative); Blood, Urine Negative (Negative); Clarity CLOUDY (Clear); Glucose, Urine (Dipstick) Negative (Negative); Leukocyte Moderate (Negative); Nitrite Negative (Negative); Protein, Urine (Dipstick) 100 mg/dL (Neg-Trace); Specific Gravity, Urine 1.025 (1.002-1.036); Urobilinogen 0.2 mg/dL (0.2-1.0)
[2017-06-17 10:41] LABS: Bacteria/HPF 1+ HPF (None Seen)
[2017-06-17 10:43] LABS: Pathc Cast-AUWi Flag 3.25 (0-2.49)
[2017-06-17 10:56] LABS: Hyaline Casts/LPF 7-10 HYALINE CAST LPF (0-3 Hyaline); Other Casts/LPF 0-3 FINELY GRAN LPF (0-3 Hyaline)
--- NOTE | 2017-06-17 11:00 | CON ---
DATE OF CONSULTATION: 06/17/2017 HISTORY OF PRESENT ILLNESS: Ms. Sung is a 77-year-old female who was initially admitted fo r shortness of breath. She was found to have significant coronary artery disease. She has undergone cardiac catheterization and CABG. Over the last few days, renal function has been worsening. Stephanie frankel note this patient also was diagnosed to have severe left main 3-vessel disease with preserved EF. At one time, the patient was on an ARB. We are being consulted due to the creatinine more than 2 mg percent. REVIEW OF SYSTEMS: Positive for postop pain. No overt shortness of breath, no nausea, no vomiting, no diarrhea, decreased appetite, decreased energy level. No headache, no diplopia, no fever or chill s. No gross hematuria. No dysuria, no urinary frequency, no syncopal episode. CURRENT MEDICATIONS: Includes the following; DuoNeb q.6 p.r.n., aspirin 325 mg once a day, Benadryl p.r.n., Lovenox 30 mg subcu day, Pepcid 20 mg tab once a day, Humulin R sliding scale, Synthroid 88 m cg daily, nicardipine drip, Zofran 4 mg IV q.6 p.r.n., rosuvastatin 10 mg tab at bedtime. PAST MEDICAL HISTORY: Hyperlipidemia, coronary artery disease, hypothyroidism? of diabetes mellitus, hypertension. Recently non-ST segment elevated AL, history of CHF. PAST SURGICAL HISTORY: 1. Status post CABG. 2. Status post cardiac ablation. 3. Status post right ankle surgery. 4. Status post hysterectomy. SOCIAL HISTORY: The patient is , lives with her , 8 children, retired cook. Education , 8th grade. Lives in [place]. No smoking, no alcohol intake, no IV drug abuse. Sedentary lifesty le. FAMILY HISTORY: No family history of ESRD. ALLERGIES: ?NAPROSYN. TRAUMA: None. IMMUNIZATIONS: Up to date. HOSPITALIZATIONS: Please see past medical history. PHYSICAL EXAMINATION: VITAL SIGNS: Blood pressure is 152/72, heart rate 82, respiratory rate 17, pulse ox 100%. GENERAL: Awake, alert, comfortable, not in distress. SKIN: Adequate turgor. HEENT: Patient has slightly pale conjunctivae, anicteric sclerae. NECK: No neck mass, no carotid bruits, no JVD. CHEST: No deformities. Positive for midline surgical scar. LUNGS: Decreased breath sounds. HEART: Normal sinus rhythm. No murmur, no gallops, no rubs. ABDOMEN: Globular, soft, nontender, no masses. EXTREMITIES: No edema. NEUROLOGIC: Awake and oriented to 3 spheres. Moving all extremities. No tremors or asterixis. LABORATORY DATA: 1. Laboratories of 06/15/2017; white count 8, hemoglobin 8.8, hematocrit 28.1. Sodium 139, pot[place] m 4.4, chloride 108, carbon dioxide 25, BUN 47, creatinine 2.15, glucose 76, calcium 8.7. 2. On 06/16/2017, creatinine 1.93. 3. On 06/15/2017, creatinine 1.88. 4. On 06/13/2017, creatinine 1.05. 5. On 06/12/2017, creatinine 0.78. IMAGING DATA: Chest x-ray shows minimal pleural effusion, no overt CHF. ASSESSMENT AND PLAN: 1. Acute kidney injury - consider hemodynamically mediated renal dysfunction. Please note this guilherme ent is status post coronary artery bypass graft. I did review her medication. She is currently not on any nephrotoxic drugs. My bias is empiric volume repletion. We will give salt poor albumin 25 gr ams IV q.6 x3 days. I will reevaluate her again if she is tolerating this. If needed, we can empiri becki resume back normal saline with her. We will review urinalysis and renal ultrasound has also be en ordered for the patient. 2. Coronary artery disease, status post coronary artery bypass graft - stable, doing well. Surgery is following. 3. Borderline anemia. Continue to observe. P.r.n. blood transfusion. 4. Recheck base met and CBC in a.m.
--- NOTE | 2017-06-17 14:21 | ULT ---
RENAL ULTRASOUND: 06/17/2017 PROVIDED CLINICAL HISTORY: Acute renal failure. FINDINGS: The right kidney measures about 9.5 x 3.8 x 3.8 cm and demonstrates no evidence for hydronephrosis or mass. The left kidney measures about 9.6 x 4.8 x 4.5 cm and demonstrates no evidence for hydronephrosis or mass. The urinary bladder appears grossly unremarkable. Increased echogenicity involving the dependent por tions of the urinary bladder could reflect nonspecific debris. Bilateral pleural effusions are parti ally visualized. IMPRESSION: 1. No evidence for hydronephrosis. 2. Nonspecific debris in the urinary bladder. 3. Bilateral pleural effusions are partially visualized. POS: DARIEN
--- NOTE | 2017-06-17 14:45 | PDOC.PN ---
- Subjective Encounter Start Date: 06/17/17 Encounter Start Time: 14:43 Subjective: Pt seen and Examined, S/p CABG -: CKD, Rash -: rash are improving - Objective MAR Reviewed: Yes Vital Signs & Weight: Vital Signs (12 hours) Temp Pulse Pulse Pulse Resp BP BP 06/17/17 12:00 98.4 F 06/17/17 09:58 82 77 136/51 L 145/66 H 06/17/17 08:48 75 75 142/65 H 137/59 L 06/17/17 08:00 98.2 F 79 16 06/17/17 04:00 98 F 06/17/17 03:07 Pulse Ox Pulse Ox Pulse Ox 06/17/17 12:00 06/17/17 09:58 98 100 06/17/17 08:48 100 100 06/17/17 08:00 100 06/17/17 04:00 98 06/17/17 03:07 100 Weight Weight 171 lb 11.841 oz Most Recent Monitor Data Heart Rate from ECG 75 NIBP 144/47 NIBP BP-Mean 85 Respiration from ECG 12 SpO2 100 I&O: 06/16/17 06/17/17 06/18/17 06:59 06:59 06:59 Intake Total 1840 750 460 Output Total 765 100 230 Balance 1075 650 230 Result Diagrams: 06/15/17 04:17 06/17/17 Unknown Additional Labs: Accuchecks 06/17/17 06/17/17 06/17/17 11:24 06:27 04:02 POC Glucose 136 H 84 88 06/17/17 06/16/17 06/16/17 00:30 21:17 17:15 POC Glucose 87 146 H 179 H 06/16/17 06/15/17 05:49 20:22 POC Glucose 77 166 H Phys Exam - Physical Examination Neck: no nodes, no JVD, supple, full ROM Respiratory: no wheezing, no rales, no rhonchi, wheezing present, clear to auscultation bilateral Cardiovascular: RRR, no significant murmur, no rub, gallop, irregular Musculoskeletal: no edema, pulses present, edema present Neurological: non-focal, normal sensation, moves all 4 limbs Lymphatic: no nodes Erythematous rash noted on upper extremities Psychiatric: normal affect Dx/Plan (1) Acute on chronic diastolic (congestive) heart failure Code(s): I50.33 - ACUTE ON CHRONIC DIASTOLIC (CONGESTIVE) HEART FAILURE Status : Acute Comment: Diuresing and feeling better. (2) Coronary artery disease Code(s): I25.10 - ATHSCL HEART DISEASE OF [place] CORONARY ARTERY W/O ANG PCTRS Status: Acute Qualifiers: Coronary Disease-Associated Artery/Lesion type: [place] artery (3) NSTEMI (non-ST elevated myocardial infarction) Code(s): I21.4 - NON-ST ELEVATION (NSTEMI) MYOCARDIAL INFARCTION Status: Acute (4) Normocytic anemia Code(s): D64.9 - ANEMIA, UNSPECIFIED Status: Acute Comment: Developed since 2017, uncertain eitiology, no renal failure, low iron levels, neg hemoccult. Suspect GI blood loss though not actively. Will need GI w/u as outpatient. (5) S/P CABG (coronary artery bypass graft) Code(s): Z95.1 - PRESENCE OF AORTOCORONARY BYPASS GRAFT Status: Acute (6) Chronic anemia Code(s): D64.9 - ANEMIA, UNSPECIFIED Status: Chronic Comment: yamil DICKSON.s/ p IV iron (7) Moderate aortic stenosis Code(s): I35.0 - NONRHEUMATIC AORTIC (VALVE) STENOSIS Status: Chronic (8) Psoriasis Code(s): L40.9 - PSORIASIS, UNSPECIFIED Status: Acute (9) Rash Code(s): R21 - RASH AND OTHER NONSPECIFIC SKIN ERUPTION Status: Acute - Plan 1) Continue Aspirin, Betblocker and NTG -: 2)Continue Benadryl for rash -: 3)CKD stage3, Nephro consulted, IV Albumin q day for 3 days -: 4) DVT Prophylaxis, Lovenox * . Review of Systems - Medications/Allergies Allergies/Adverse Reactions: Allergies Allergy/AdvReac Type Severity Reaction Status Date / Time naproxen sodium [From Aleve] Allergy Mild Verified 06/09/17 01:43 Medications: Current Medications Acetaminophen (Tylenol) 650 mg PO Q6H PRN PRN Reason: Headache/Fever Or Mild Pain Hydrocodone Bitart/Acetaminophen ([place]/325) 1 tab PO Q4H PRN PRN Reason: Pain Last Admin: 06/16/17 10:49 Dose: 1 tab Hydrocodone Bitart/Acetaminophen ([place]/325) 2 tab PO Q4H PRN PRN Reason: Pain Last Admin: 06/16/17 15:25 Dose: 2 tab Al Hydroxide/Mg Hydroxide (Maalox) 30 ml PO Q4H PRN PRN Reason: Indigestion Albumin Human (Albumin 25%) 25 gm IVPB 0300,0900,1500,2100 [facility] Stop: 06/20/17 03:01 Last Admin: 06/17/17 09:44 Dose: 25 gm Albuterol/Ipratropium (Duoneb) 3 ml NEB [id number] PRN PRN Reason: SHORTNESS OF BREATH Last Admin: 06/16/17 21:50 Dose: 3 ml Aspirin (Aspirin) 325 mg PO DAILY [facility] Last Admin: 06/17/17 09:06 Dose: 325 mg Bisacodyl (Dulcolax) 10 mg PO Q12H PRN PRN Reason: Constipation Bisacodyl (Dulcolax) 10 mg [place] Q12H PRN PRN Reason: Constipation Carvedilol (Coreg) 3.125 mg PO TID [facility] Last Admin: 06/17/17 09:06 Dose: 3.125 mg Dextrose/Water (Dextrose 50%) 25 gm SLOW IVP PRN PRN PRN Reason: PER HYPOGLYCEMIC PROTOCOL Diphenhydramine HCl (Benadryl) 25 mg PO Q6H PRN PRN Reason: Itching & Insomnia Last Admin: 06/16/17 17:50 Dose: 25 mg Enoxaparin Sodium (Lovenox) 30 mg SC 2100 [facility] Last Admin: 06/16/17 21:14 Dose: 30 mg Famotidine (Pepcid) 20 mg PO DAILY [facility] Last Admin: 06/17/17 09:06 Dose: 20 mg Fentanyl (Sublimaze) 25 mcg SLOW IVP Q4H PRN PRN Reason: Pain Glucagon (Glucagon) 1 mg SC PRN PRN PRN Reason: PER HYPOGLYCEMIC PROTOCOL Guaifenesin (Mucinex) 1,200 mg PO Q12HR [facility] Last Admin: 06/17/17 09:06 Dose: 1,200 mg Guaifenesin/Dextromethorphan (Robitussin Dm) 15 ml PO Q4H PRN PRN Reason: Cough Hydralazine HCl (Apresoline) 10 mg SLOW IVP Q6H PRN PRN Reason: To Maintain SBP< 140mmHG Last Admin: 06/15/17 07:43 Dose: 10 mg Nicardipine HCl 25 mg/ Sodium (Chloride) 260 mls @ 0 mls/hr IVPB INF PRN; Protocol; Titrate PRN Reason: To Maintain SBP< 140mmHG Nitroglycerin/Dextrose (Nitroglycerin 50 Mg/250 Ml Bot) 250 mls @ 0 mls/hr IVPB PRN PRN; Protocol; Titrate PRN Reason: To Maintain SBP< 140mmHG Phenylephrine HCl (Scar-Synephrine) 250 mls @ 0 mls/hr IVPB PRN PRN; Protocol; Titrate PRN Reason: To maintain SBP > 90 mmHG Insulin Human Regular 100 (units/ Sodium Chloride) 101 mls @ 0 mls/hr IVPB INF [place]; As Directed PRN Reason: Protocol Dextrose/Water (D5w) 1,000 mls @ 0 mls/hr IV INF PRN; As Directed PRN Reason: PRN HYPOGLYCEMIC PROTOCOL Insulin Human Regular (Humulin R) 0 units SC Q4H PRN; Protocol PRN Reason: POST OP SLIDING SCALE Last Admin: 06/16/17 21:17 Dose: 3 unit Levothyroxine Sodium (Synthroid) 88 mcg PO 0600 [facility] Last Admin: 06/17/17 06:23 Dose: 88 mcg Discontinue Previous Narcotic Pain Medications And Benzodiazepines 1 each FS .ONE [facility] Stop: 07/12/17 21:53 Ondansetron HCl (Zofran) 4 mg IVP Q6H PRN PRN Reason: Nausea/Vomiting Potassium Chloride (Kcl) 20 meq IVPB PRN PRN PRN Reason: K level </= 4.0 Last Admin: 06/15/17 07:47 Dose: 20 meq Promethazine HCl (Phenergan) 6.25 mg IM Q4H PRN PRN Reason: Nausea/Vomiting Rosuvastatin Calcium (Crestor) 10 mg PO HS [facility] Last Admin: 06/16/17 21:14 Dose: 10 mg Silver Sulfadiazine (Silvadene) 1 gm TOP BID [facility] Last Admin: 06/17/17 09:36 Dose: 1 applic Sodium Chloride (Flush - Normal Saline) 10 ml IVF PRN PRN PRN Reason: Saline Flush Tramadol HCl (Ultram) 50 mg PO Q6H PRN PRN Reason: Pain Last Admin: 06/16/17 17:50 Dose: 50 mg
[2017-06-17] MEDS ORDERED: Ondansetron HCl/PF 4 MG/2 ML Vial IVP PRN (18:14)
[2017-06-17] MEDS ORDERED: Nitroglycerin 0.4 MG TAB 1 EACH SL PRN (18:14)
[2017-06-17] MEDS ORDERED: Mag-Al 1200 mg/1200 mg/30 ML UDCUP PO PRN (18:14)
[2017-06-17] MEDS ORDERED: Fentanyl 100 MCG/2 ML VIAL SLOW IVP PRN (18:14)
[2017-06-17] MEDS ORDERED: Bisacodyl 10 MG SUPP PR PRN (18:14)
[2017-06-17] MEDS ORDERED: Bisacodyl 5 MG TAB PO PRN (18:14)
[2017-06-17] MEDS ORDERED: Artificial Tears 18 DROP/0.9 ML EA EYE PRN (18:14)
[2017-06-17] MEDS ORDERED: Guaifenesin DM 100-10/5 ML UDCUP PO PRN (18:14)
[2017-06-17] MEDS ORDERED: HYDROcodone/Acetaminophen 5/325 mg Tablet PO PRN ×2 (18:14)
[2017-06-17] MEDS ORDERED: diphenhydrAMINE 25 MG CAP PO PRN (18:14)
[2017-06-17] MEDS ORDERED: Mineral Oil ENEMA PR PRN (18:14)
[2017-06-17] MEDS ORDERED: Dextrose 5% in Water 1,000 ML IV PRN (18:31)
[2017-06-17] MEDS ORDERED: Dextrose 50% Abboject 50 ML SYRINGE SLOW IVP PRN (18:31)
[2017-06-17] MEDS: Rosuvastatin 10 MG TAB PO SCH (19:46)
[2017-06-17] MEDS: Enoxaparin Sodium 30 MG/0.3 ML SYRINGE SC SCH (19:46)
[2017-06-18] MEDS: Levothyroxine Sodium 88 MCG TAB PO SCH (04:28)
[2017-06-18] MEDS: Albumin 25% 25 GM/100 ML BOT IVPB SCH ×4 (04:29→21:43)
[2017-06-18 05:26] LABS: Anion Gap 13 mmol/L (10-20); BUN (Urea Nitrogen) 51 mg/dL (9.8-20.1); Calc. Creatinine Clearance 29 mL/min (70-130); Calcium 8.4 mg/dL (7.8-10.44); Carbon Dioxide 22 mmol/L (23-31); Chloride 106 mmol/L (98-107); Estimated GFR-MDRD 24; Glucose 125 mg/dL (83-110); Sodium 137 mmol/L (136-145)
[2017-06-18] MEDS: diphenhydrAMINE 25 MG CAP PO PRN (07:07)
--- NOTE | 2017-06-18 08:32 | PRG ---
DATE OF SERVICE: 06/18/2017 SERVICE: Renal Medicine. SUBJECTIVE: Ms. Sung is a 77-year-old female who has coronary artery disease, status post CABG and seen by the renal service for her acute kidney injury. Initially, we felt that this was a h emodynamically mediated renal dysfunction. She was empirically given salt poor albumin. We will fredy n to give this for 3 days. If needed, we can only start normal saline with this patient. The creati nine is slightly improved this morning. I did review the urinalysis this morning and it showed the p ossibility she may have mild acute tubular necrosis and suggested by the presence of pigmented granul ar cast. This morning, she voices no new complaints. She denies any chest pain or shortness of vandana th. Her appetite is fair. OBJECTIVE: VITAL SIGNS: Blood pressure 156/72, heart rate 78, respiratory rate 20, temperature 99.5, pulse ox 1 00%. GENERAL: Noted to be awake, supine, comfortable, not in distress. SKIN: Adequate turgor. HEENT: Pinkish conjunctivae, anicteric sclerae. NECK: No neck mass. No carotid bruits, no JVD. CHEST: No deformities. LUNGS: Decreased breaths sounds. HEART: Normal sinus rhythm. No murmur, no gallops or rubs. ABDOMEN: Globular, soft, nontender, no masses. EXTREMITIES: No edema. MEDICATIONS: Of 06/18/2017 was reviewed. LABORATORY DATA: Of 06/18/2017, showed white count of 8, hemoglobin of 8.8, hematocrit 28.1. Sodium 137, potassium 4, chloride 106, carbon dioxide 22, BUN 51, creatinine 2.04, glucose 125, calcium 8.4 . ASSESSMENT AND PLAN: 1. Acute kidney injury - consider still a hemodynamically mediated renal dysfunction with the possib ility of a superimposed mild acute tubular necrosis. Continue supportive care. Continue salt poor a lbumin. There is no indication for any dialytic intervention. Her renal function seems to have plat eaued. As a matter of fact, creatinine slightly improved from 2.15-2.04 with a GFR of 24 mL per jaqueline te. 2. Anemia. Continue to observe, p.r.n. blood transfusion. 3. Status post coronary artery bypass graft, stable. Surgery is following. Please note, the patient is tolerating her colloid infusion. Recheck base met and CBC in a.m.
[2017-06-18] MEDS: Aspirin 325 mg Enteric Coated Tablet PO SCH (09:09)
[2017-06-18] MEDS: Famotidine 20 MG TAB PO SCH (09:09)
[2017-06-18] MEDS: Carvedilol 3.125 MG TAB PO SCH ×3 (09:09→21:43)
[2017-06-18] MEDS: Silver Sulfadiazine 1% Cream 50 GM JAR TOP SCH ×2 (09:10→21:44)
--- NOTE | 2017-06-18 13:37 | PDOC.PN ---
- Subjective Encounter Start Date: 06/18/17 Encounter Start Time: 13:34 Subjective: Pt seen and examined S/P CABG -: CKD and rash -: Pt denies any complain, PT is working with her - Objective MAR Reviewed: Yes Vital Signs & Weight: Vital Signs (12 hours) Temp Pulse Pulse Pulse Resp BP BP 06/18/17 11:25 98.4 F 71 18 06/18/17 10:39 73 68 141/63 H 161/69 H 06/18/17 07:37 98 F 75 18 06/18/17 07:35 98 F 75 18 06/18/17 03:18 99.5 F 78 20 BP Pulse Ox Pulse Ox Pulse Ox 06/18/17 11:25 146/63 H 98 06/18/17 10:39 100 100 06/18/17 07:37 100 06/18/17 07:35 134/61 100 06/18/17 03:18 156/72 H 100 Weight Admit Weight 167 lb 3.2 oz Weight 176 lb 4.8 oz Most Recent Monitor Data Heart Rate from ECG 80 NIBP 161/59 NIBP BP-Mean 104 Respiration from ECG 13 SpO2 96 I&O: 06/17/17 06/18/17 06/19/17 06:59 06:59 06:59 Intake Total 750 1260 Output Total 100 330 Balance 650 930 Result Diagrams: 06/15/17 04:17 06/18/17 05:04 Additional Labs: Accuchecks 06/18/17 06/18/17 06/17/17 11:27 05:27 19:59 POC Glucose 147 H 166 H 187 H 06/17/17 17:06 POC Glucose 125 H Phys Exam - Physical Examination HEENT: PERRLA, moist MMs, sclera anicteric, TM's clear, oral pharynx no lesions , 2+ tonsils Neck: no nodes, no JVD, supple, full ROM Respiratory: no wheezing, no rales, no rhonchi, wheezing present, clear to auscultation bilateral Cardiovascular: RRR, no significant murmur, no rub, gallop, irregular Gastrointestinal: soft, non-tender, no distention, positive bowel sounds Musculoskeletal: no edema, pulses present, edema present Neurological: non-focal, normal sensation, moves all 4 limbs Psychiatric: normal affect, A&O x 3 Skin: no rash, normal turgor, cap refill <2 seconds Dx/Plan (1) Acute on chronic diastolic (congestive) heart failure Code(s): I50.33 - ACUTE ON CHRONIC DIASTOLIC (CONGESTIVE) HEART FAILURE Status : Acute Comment: Diuresing and feeling better. (2) Coronary artery disease Code(s): I25.10 - ATHSCL HEART DISEASE OF [place] CORONARY ARTERY W/O ANG PCTRS Status: Acute Qualifiers: Coronary Disease-Associated Artery/Lesion type: [place] artery (3) NSTEMI (non-ST elevated myocardial infarction) Code(s): I21.4 - NON-ST ELEVATION (NSTEMI) MYOCARDIAL INFARCTION Status: Acute (4) Normocytic anemia Code(s): D64.9 - ANEMIA, UNSPECIFIED Status: Acute Comment: Developed since 2017, uncertain eitiology, no renal failure, low iron levels, neg hemoccult. Suspect GI blood loss though not actively. Will need GI w/u as outpatient. (5) S/P CABG (coronary artery bypass graft) Code(s): Z95.1 - PRESENCE OF AORTOCORONARY BYPASS GRAFT Status: Acute (6) Chronic anemia Code(s): D64.9 - ANEMIA, UNSPECIFIED Status: Chronic Comment: yamil DICKSON.s/ p IV iron (7) Moderate aortic stenosis Code(s): I35.0 - NONRHEUMATIC AORTIC (VALVE) STENOSIS Status: Chronic (8) Psoriasis Code(s): L40.9 - PSORIASIS, UNSPECIFIED Status: Acute (9) Rash Code(s): R21 - RASH AND OTHER NONSPECIFIC SKIN ERUPTION Status: Acute - Plan DVT proph w/lovenox 1) CAD s/p CABG, Aspirin, Betablocker, Statin -: 2) CKD stage 3 stable -: 3) Dispsition rehab * . Review of Systems - Review of Systems Respiratory: negative: Cough, Dry, Shortness of Breath, Hemoptysis, SOB with Excertion, Pleuritic Pain, Sputum, Wheezing Cardiovascular: negative: chest pain, palpitations, orthopnea, paroxysmal nocturnal dyspnea, edema, light headedness, other Gastrointestinal: negative: Nausea, Vomiting, Abdominal Pain, Diarrhea, Constipation, Melena, Hematochezia, Other Musculoskeletal: negative: Neck Pain, Shoulder Pain, Arm Pain, Back Pain, Hand Pain, Leg Pain, Foot Pain, Other Skin: Rash - Medications/Allergies Allergies/Adverse Reactions: Allergies Allergy/AdvReac Type Severity Reaction Status Date / Time naproxen sodium [From Aleve] Allergy Mild Verified 06/09/17 01:43 Medications: Current Medications Acetaminophen (Tylenol) 650 mg PO Q6H PRN PRN Reason: Headache/Fever or Pain Hydrocodone Bitart/Acetaminophen ([place] 5/325) 1 tab PO Q4H PRN PRN Reason: Moderate Pain (4-6) Hydrocodone Bitart/Acetaminophen ([place] 5/325) 2 tab PO Q4H PRN PRN Reason: Severe Pain (7-10) Last Admin: 06/18/17 04:28 Dose: 2 tab Al Hydroxide/Mg Hydroxide (Maalox) 30 ml PO Q4H PRN PRN Reason: Indigestion Albumin Human (Albumin 25%) 25 gm IVPB 0300,0900,1500,2100 [facility] Stop: 06/20/17 03:01 Last Admin: 06/18/17 09:09 Dose: 25 gm Albuterol/Ipratropium (Duoneb) 3 ml NEB [id number] PRN PRN Reason: Respiratory Distress Artificial Tears (Tears Naturale) 0 drop EA EYE PRN PRN PRN Reason: Dry Eyes Aspirin (Ecotrin) 325 mg PO DAILY [facility] Last Admin: 06/18/17 09:09 Dose: 325 mg Bisacodyl (Dulcolax) 10 mg PO Q12H PRN PRN Reason: Constipation Bisacodyl (Dulcolax) 10 mg [place] Q12H PRN PRN Reason: Constipation Carvedilol (Coreg) 3.125 mg PO TID [facility] Last Admin: 06/18/17 09:09 Dose: 3.125 mg Dextrose/Water (Dextrose 50%) 25 gm SLOW IVP PRN PRN PRN Reason: PER HYPOGLYCEMIC PROTOCOL Diphenhydramine HCl (Benadryl) 25 mg PO Q6H PRN PRN Reason: Itching & Insomnia Last Admin: 06/18/17 07:07 Dose: 25 mg Diphenhydramine HCl (Benadryl) 25 mg PO Q6H PRN PRN Reason: Itching & Insomnia or Librado Luan Enoxaparin Sodium (Lovenox) 30 mg SC 2100 [facility] Last Admin: 06/17/17 19:46 Dose: 30 mg Famotidine (Pepcid) 20 mg PO DAILY [facility] Last Admin: 06/18/17 09:09 Dose: 20 mg Fentanyl (Sublimaze) 25 mcg SLOW IVP Q2H PRN PRN Reason: Moderate breakthrough pain Stop: 06/19/17 18:15 Glucagon (Glucagon) 1 mg SC PRN PRN PRN Reason: PER HYPOGLYCEMIC PROTOCOL Guaifenesin/Dextromethorphan (Robitussin Dm) 15 ml PO Q4H PRN PRN Reason: Cough Hydralazine HCl (Apresoline) 10 mg SLOW IVP Q6H PRN PRN Reason: To Maintain SBP< 140mmHG Last Admin: 06/15/17 07:43 Dose: 10 mg Dextrose/Water (D5w) 1,000 mls @ 0 mls/hr IV INF PRN; As Directed PRN Reason: PRN HYPOGLYCEMIC PROTOCOL Insulin Human Regular (Humulin R) 0 units SC Q4H PRN; Protocol PRN Reason: POST OP SLIDING SCALE Levothyroxine Sodium (Synthroid) 88 mcg PO 0600 [facility] Last Admin: 06/18/17 04:28 Dose: 88 mcg Magnesium Hydroxide (Milk Of Magnesium) 30 ml PO Q12H PRN PRN Reason: Constipation Mineral Oil (Fleet Mineral Oil) 133 ml [place] DAILYPRN PRN PRN Reason: Constipation Miscellaneous Medication (Post-Op Sliding Scale) 1 each FS ONE [facility] Stop: 06/18/17 18:15 Nitroglycerin (Nitrostat) 0.4 mg SL Q5MIN PRN PRN Reason: Chest Pain Ondansetron HCl (Zofran) 4 mg IVP Q6H PRN PRN Reason: Nausea/Vomiting Rosuvastatin Calcium (Crestor) 10 mg PO HS [facility] Last Admin: 06/17/17 19:46 Dose: 10 mg Silver Sulfadiazine (Silvadene) 1 gm TOP BID [facility] Last Admin: 06/18/17 09:10 Dose: 1 applic Sodium Chloride (Flush - Normal Saline) 10 ml IVF PRN PRN PRN Reason: Saline Flush Tramadol HCl (Ultram) 50 mg PO Q6H PRN PRN Reason: Pain Last Admin: 06/16/17 17:50 Dose: 50 mg
[2017-06-18] MEDS: Insulin Regular 300 UNITS/3 ML VIAL SC PRN (16:58)
[2017-06-18] MEDS: Enoxaparin Sodium 30 MG/0.3 ML SYRINGE SC SCH (21:43)
[2017-06-18] MEDS: Rosuvastatin 10 MG TAB PO SCH (21:43)
[2017-06-19] MEDS: Acetaminophen 325 MG TAB PO PRN (01:42)
[2017-06-19] MEDS: traMADol HCl 50 MG TAB PO PRN ×2 (03:41→17:43)
[2017-06-19] MEDS: Albumin 25% 25 GM/100 ML BOT IVPB SCH ×2 (03:43→09:55)
[2017-06-19] MEDS: Levothyroxine Sodium 88 MCG TAB PO SCH (05:18)
[2017-06-19 05:56] LABS: Band 15 % (5-11); Eosinophils 4 % (0-10); Hemoglobin 7.6 g/dL (12.0-16.0); Lymphocytes 8 % (21-51); MDiff Complete? YES; Mean Corpuscular HGB CONC 31.6 g/dL (32.0-36.0); Mean Corpuscular Hemoglobin 27.8 pg (27.0-31.0); Mean Platelet Volume 8.8 fL (7.4-10.4); Monocytes 4 % (0-10); Neutrophil 69 % (42-75); PLT Morphology Comment Appears Decreased; Platelet Count 98 thou/uL (130-400); RBC Distribution Width 19.7 % (11.5-14.5); Red Blood Cell (RBC) Count 2.73 mill/uL (4.20-5.40); White Blood Cell (WBC) Count 6.3 thou/uL (4.8-10.8)
[2017-06-19 05:59] LABS: Anion Gap 14 mmol/L (10-20); BUN (Urea Nitrogen) 55 mg/dL (9.8-20.1); Calc. Creatinine Clearance 25 mL/min (70-130); Calcium 8.6 mg/dL (7.8-10.44); Carbon Dioxide 20 mmol/L (23-31); Chloride 105 mmol/L (98-107); Estimated GFR-MDRD 20; Glucose 92 mg/dL (83-110); Potassium 3.9 mmol/L (3.5-5.1); Sodium 135 mmol/L (136-145)
[2017-06-19] MEDS: Silver Sulfadiazine 1% Cream 50 GM JAR TOP SCH ×2 (09:55→22:09)
[2017-06-19] MEDS: Carvedilol 3.125 MG TAB PO SCH ×3 (09:55→22:08)
[2017-06-19] MEDS: Aspirin 325 mg Enteric Coated Tablet PO SCH (09:55)
[2017-06-19] MEDS: Famotidine 20 MG TAB PO SCH (09:55)
[2017-06-19] MEDS ORDERED: Sodium Chloride 0.9% 1,000 ML IV SCH (10:15)
--- NOTE | 2017-06-19 11:08 | PRG ---
DATE OF SERVICE: 06/19/2017 RENAL MEDICINE SUBJECTIVE: Ms. Sung is a 77-year-old female, who was seen by the Renal Service for acute kidney injury. The presumption was that this was a hemodynamically mediated renal dysfunction. She has been started on salt poor albumin. However, renal function remains to be unimproved. She also r ecently underwent CABG. The patient voices no new complaints. She denies any chest pain or shortness of breath. OBJECTIVE: VITAL SIGNS: Blood pressure is 142/63, heart rate 67, respiratory rate 18, temperature 97.5, pulse o x 96%. GENERAL EXAM: Noted to be awake, sitting comfortable, not in distress. SKIN: Adequate turgor. HEENT: She has slightly pale conjunctivae, anicteric sclerae. NECK: No neck mass, no carotid bruits, no JVD. CHEST: No deformities. LUNGS: Decreased breath sounds, left; right, clear breath sounds. HEART: Normal sinus rhythm. No murmur, no gallops, no rubs. ABDOMEN: Globular, soft, nontender, no masses. EXTREMITIES: No edema, no deformities. MEDICATIONS: Medications of 06/19/2017 were reviewed. LABORATORY DATA: Laboratories of 06/19/2017, show a white count 6.2, hemoglobin 7.6, hematocrit 24. Sodium 135, potassium 3.9, chloride 105, carbon dioxide 20, BUN 55, creatinine 2.36, GFR 20 mL per m inute, glucose 92, calcium 8.6. ASSESSMENT AND PLAN: 1. Acute kidney injury - secondary to prerenal azotemia. However, as previously noted, the urinalys is showed some pigmented granular casts suggesting that she may have a superimposed acute tubular nec rosis. My plan is to further optimize hemodynamics. We will empirically treat with normal saline 10 0 mL an hour. She will continue salt poor albumin. If no improvement with this gentle volume replet ion, then she may have an established acute tubular necrosis and management will essentially be suppo rtive. At the present time, there is no indication for any dialytic intervention. 2. Anemia. Continue to observe. We will check CBC in a.m. 3. Status post coronary artery bypass grafting, doing well and ambulating well. Surgery is dory zavala
--- NOTE | 2017-06-19 14:08 | PDOC.PN ---
- Subjective Encounter Start Date: 06/19/17 Encounter Start Time: 14:07 Subjective: Ptseen and examined -: S/p CABG -: feeling better, denies any chest pain - Objective Vital Signs & Weight: Vital Signs (12 hours) Temp Pulse Pulse Pulse Resp BP BP 06/19/17 11:30 97.7 F 67 16 06/19/17 10:03 66 65 179/74 H 170/70 H 06/19/17 08:00 97.5 F L 67 18 06/19/17 07:53 65 68 148/63 H 148/65 H 06/19/17 07:40 97.5 F L 67 18 06/19/17 05:33 66 18 06/19/17 03:29 97.9 F 72 13 BP BP Pulse Ox Pulse Ox Pulse Ox 06/19/17 11:30 162/70 H 98 06/19/17 10:03 95 96 06/19/17 08:00 96 06/19/17 07:53 95 93 L 06/19/17 07:40 142/63 H 96 06/19/17 05:33 98 06/19/17 03:29 136/63 97 Weight Admit Weight 167 lb 3.2 oz Weight 176 lb 4.8 oz Most Recent Monitor Data Heart Rate from ECG 80 NIBP 161/59 NIBP BP-Mean 104 Respiration from ECG 13 SpO2 96 I&O: 06/18/17 06/19/17 06/20/17 06:59 06:59 06:59 Intake Total 1260 500 Output Total 330 200 Balance 930 300 Result Diagrams: 06/19/17 04:31 06/19/17 04:31 Additional Labs: Accuchecks 06/19/17 06/19/17 06/18/17 11:40 06:29 20:00 POC Glucose 148 H 101 175 H 06/18/17 16:29 POC Glucose 202 H Phys Exam - Physical Examination HEENT: PERRLA, moist MMs, sclera anicteric, TM's clear, oral pharynx no lesions , 2+ tonsils Neck: no nodes, no JVD, supple, full ROM Respiratory: no wheezing, no rales, no rhonchi, wheezing present, clear to auscultation bilateral Cardiovascular: RRR, no significant murmur, no rub, gallop, irregular Gastrointestinal: soft, non-tender, no distention, positive bowel sounds Musculoskeletal: no edema, pulses present, edema present Neurological: non-focal, normal sensation, moves all 4 limbs Psychiatric: normal affect, A&O x 3 Skin: no rash, normal turgor, cap refill <2 seconds Dx/Plan (1) Acute on chronic diastolic (congestive) heart failure Code(s): I50.33 - ACUTE ON CHRONIC DIASTOLIC (CONGESTIVE) HEART FAILURE Status : Acute Comment: Diuresing and feeling better. (2) Coronary artery disease Code(s): I25.10 - ATHSCL HEART DISEASE OF [place] CORONARY ARTERY W/O ANG PCTRS Status: Acute Qualifiers: Coronary Disease-Associated Artery/Lesion type: [place] artery (3) NSTEMI (non-ST elevated myocardial infarction) Code(s): I21.4 - NON-ST ELEVATION (NSTEMI) MYOCARDIAL INFARCTION Status: Acute (4) Normocytic anemia Code(s): D64.9 - ANEMIA, UNSPECIFIED Status: Acute Comment: Developed since 2017, uncertain eitiology, no renal failure, low iron levels, neg hemoccult. Suspect GI blood loss though not actively. Will need GI w/u as outpatient. (5) S/P CABG (coronary artery bypass graft) Code(s): Z95.1 - PRESENCE OF AORTOCORONARY BYPASS GRAFT Status: Acute (6) Chronic anemia Code(s): D64.9 - ANEMIA, UNSPECIFIED Status: Chronic Comment: yamil DICKSON.s/ p IV iron (7) Moderate aortic stenosis Code(s): I35.0 - NONRHEUMATIC AORTIC (VALVE) STENOSIS Status: Chronic (8) Psoriasis Code(s): L40.9 - PSORIASIS, UNSPECIFIED Status: Acute (9) Rash Code(s): R21 - RASH AND OTHER NONSPECIFIC SKIN ERUPTION Status: Acute - Plan DVT proph w/lovenox Continue Aspirin Crestor and Metoprolol -: PT consulted -: WILLY on CKD stable -: Dispostion rehab * . Review of Systems - Medications/Allergies Allergies/Adverse Reactions: Allergies Allergy/AdvReac Type Severity Reaction Status Date / Time naproxen sodium [From Aleve] Allergy Mild Verified 06/09/17 01:43 Medications: Current Medications Acetaminophen (Tylenol) 650 mg PO Q6H PRN PRN Reason: Headache/Fever or Pain Last Admin: 06/19/17 01:42 Dose: 650 mg Hydrocodone Bitart/Acetaminophen ([place] 5/325) 1 tab PO Q4H PRN PRN Reason: Moderate Pain (4-6) Hydrocodone Bitart/Acetaminophen ([place] 5/325) 2 tab PO Q4H PRN PRN Reason: Severe Pain (7-10) Last Admin: 06/18/17 04:28 Dose: 2 tab Al Hydroxide/Mg Hydroxide (Maalox) 30 ml PO Q4H PRN PRN Reason: Indigestion Albuterol/Ipratropium (Duoneb) 3 ml NEB [id number] PRN PRN Reason: Respiratory Distress Last Admin: 06/19/17 05:33 Dose: 3 ml Artificial Tears (Tears Naturale) 0 drop EA EYE PRN PRN PRN Reason: Dry Eyes Aspirin (Ecotrin) 325 mg PO DAILY [facility] Last Admin: 06/19/17 09:55 Dose: 325 mg Bisacodyl (Dulcolax) 10 mg PO Q12H PRN PRN Reason: Constipation Bisacodyl (Dulcolax) 10 mg [place] Q12H PRN PRN Reason: Constipation Carvedilol (Coreg) 3.125 mg PO TID [facility] Last Admin: 06/19/17 09:55 Dose: 3.125 mg Dextrose/Water (Dextrose 50%) 25 gm SLOW IVP PRN PRN PRN Reason: PER HYPOGLYCEMIC PROTOCOL Diphenhydramine HCl (Benadryl) 25 mg PO Q6H PRN PRN Reason: Itching & Insomnia Last Admin: 06/18/17 07:07 Dose: 25 mg Diphenhydramine HCl (Benadryl) 25 mg PO Q6H PRN PRN Reason: Itching & Insomnia or Librado Luan Enoxaparin Sodium (Lovenox) 30 mg SC 2100 [facility] Last Admin: 06/18/17 21:43 Dose: 30 mg Famotidine (Pepcid) 20 mg PO DAILY [facility] Last Admin: 06/19/17 09:55 Dose: 20 mg Fentanyl (Sublimaze) 25 mcg SLOW IVP Q2H PRN PRN Reason: Moderate breakthrough pain Stop: 06/19/17 18:15 Glucagon (Glucagon) 1 mg SC PRN PRN PRN Reason: PER HYPOGLYCEMIC PROTOCOL Guaifenesin/Dextromethorphan (Robitussin Dm) 15 ml PO Q4H PRN PRN Reason: Cough Hydralazine HCl (Apresoline) 10 mg SLOW IVP Q6H PRN PRN Reason: To Maintain SBP< 140mmHG Last Admin: 06/15/17 07:43 Dose: 10 mg Dextrose/Water (D5w) 1,000 mls @ 0 mls/hr IV INF PRN; As Directed PRN Reason: PRN HYPOGLYCEMIC PROTOCOL Sodium Chloride (Normal Saline 0.9%) 1,000 mls @ 100 mls/hr IV .Q10H [facility] Last Admin: 06/19/17 10:52 Dose: 1,000 mls Insulin Human Regular (Humulin R) 0 units SC Q4H PRN; Protocol PRN Reason: POST OP SLIDING SCALE Last Admin: 06/18/17 16:58 Dose: 6 unit Levothyroxine Sodium (Synthroid) 88 mcg PO 0600 [facility] Last Admin: 06/19/17 05:18 Dose: 88 mcg Magnesium Hydroxide (Milk Of Magnesium) 30 ml PO Q12H PRN PRN Reason: Constipation Mineral Oil (Fleet Mineral Oil) 133 ml [place] DAILYPRN PRN PRN Reason: Constipation Nitroglycerin (Nitrostat) 0.4 mg SL Q5MIN PRN PRN Reason: Chest Pain Ondansetron HCl (Zofran) 4 mg IVP Q6H PRN PRN Reason: Nausea/Vomiting Last Admin: 06/19/17 01:42 Dose: 4 mg Rosuvastatin Calcium (Crestor) 10 mg PO HS [facility] Last Admin: 06/18/17 21:43 Dose: 10 mg Silver Sulfadiazine (Silvadene) 1 gm TOP BID [facility] Last Admin: 06/19/17 09:55 Dose: 1 applic Sodium Chloride (Flush - Normal Saline) 10 ml IVF PRN PRN PRN Reason: Saline Flush Tramadol HCl (Ultram) 50 mg PO Q6H PRN PRN Reason: Pain Last Admin: 06/19/17 03:41 Dose: 50 mg
[2017-06-19] MEDS: diphenhydrAMINE 25 MG CAP PO PRN (14:46)
[2017-06-19] MEDS: hydrALAZINE 20 MG/ML VIAL SLOW IVP PRN (17:39)
[2017-06-19] MEDS ORDERED: Amlodipine 5 MG TAB PO SCH (18:15)
--- NOTE | 2017-06-19 18:20 | PRG ---
DATE OF SERVICE: 06/19/2017 SUBJECTIVE: Ms. Sung feels somewhat short of breath this evening and she is having a little bit of wheezing. OBJECTIVE: VITAL SIGNS: Blood pressure is high 190/77, pulse 66, regular. LUNGS: Clear. CARDIAC: Mild wheezing. ABDOMEN: Soft, nontender. EXTREMITIES: There is no significant edema. ASSESSMENT: 1. May be slightly volume overloaded. 2. Renal function is stable, creatinine 2.36. PLAN: 1. We will go ahead and stop the saline now. 2. Add amlodipine to help with the blood pressure. 3. Recheck tomorrow.
[2017-06-19] MEDS: Rosuvastatin 10 MG TAB PO SCH (22:07)
[2017-06-19] MEDS: Enoxaparin Sodium 30 MG/0.3 ML SYRINGE SC SCH (22:08)
[2017-06-19] MEDS: Insulin Regular 300 UNITS/3 ML VIAL SC PRN (22:10)
[2017-06-20 06:13] LABS: #Eosinphils 0.5 thou/uL (0.0-0.7); #Lymphocytes 1.4 thou/uL (1.20-3.40); #Neutrophils 5.5 thou/uL (1.40-6.50); %Basophils 0.3 % (0.0-1.0); %Eosinophils 6.4 % (0.0-10.0); %Lymphocytes 16.4 % (21.0-51.0); %Monocytes 11.6 % (0.0-10.0); %Neutrophils 65.2 % (42.0-75.0); Hemoglobin 8.1 g/dL (12.0-16.0); Mean Corpuscular HGB CONC 31.1 g/dL (32.0-36.0); Mean Corpuscular Hemoglobin 27.7 pg (27.0-31.0); Mean Corpuscular Volume 89.1 fl (81.0-99.0); Mean Platelet Volume 8.7 fL (7.4-10.4); Platelet Count 105 thou/uL (130-400); RBC Distribution Width 19.8 % (11.5-14.5); Red Blood Cell (RBC) Count 2.92 mill/uL (4.20-5.40); White Blood Cell (WBC) Count 8.4 thou/uL (4.8-10.8)
[2017-06-20] MEDS: Levothyroxine Sodium 88 MCG TAB PO SCH (06:19)
[2017-06-20 06:25] LABS: Anion Gap 14 mmol/L (10-20); BUN (Urea Nitrogen) 62 mg/dL (9.8-20.1); Calc. Creatinine Clearance 22 mL/min (70-130); Calcium 8.5 mg/dL (7.8-10.44); Carbon Dioxide 20 mmol/L (23-31); Chloride 105 mmol/L (98-107); Estimated GFR-MDRD 16; Glucose 95 mg/dL (83-110); Potassium 4.3 mmol/L (3.5-5.1); Sodium 135 mmol/L (136-145)
--- NOTE | 2017-06-20 08:19 | PDOC.PN ---
- Subjective Encounter Start Date: 06/20/17 Encounter Start Time: 08:30 Subjective: A little weak. Some expiratory "wheezing" in throat that she has on and off -: for months. Rash on arms ever since in ICU, not certain source. Not like -: previous psoriasis outbreaks. Due for antiTNF injection today. - Objective MAR Reviewed: Yes Vital Signs & Weight: Vital Signs (12 hours) Temp Pulse Resp BP Pulse Ox 06/20/17 07:57 97.9 F 66 20 153/69 H 95 06/20/17 04:29 98.0 F 62 16 141/65 H 97 06/20/17 00:45 97.8 F 69 18 161/84 H 95 Weight Admit Weight 167 lb 3.2 oz Weight 184 lb 8 oz Most Recent Monitor Data Heart Rate from ECG 80 NIBP 161/59 NIBP BP-Mean 104 Respiration from ECG 13 SpO2 96 I&O: 06/19/17 06/20/17 06/21/17 06:59 06:59 06:59 Intake Total 500 Output Total 200 Balance 300 Result Diagrams: 06/20/17 05:45 06/20/17 05:45 Additional Labs: Accuchecks 06/20/17 06/20/17 06/19/17 06:17 05:46 20:42 POC Glucose 100 104 195 H 06/19/17 06/19/17 16:57 11:40 POC Glucose 155 H 148 H Phys Exam - Physical Examination Constitutional: NAD HEENT: moist MMs Respiratory: no wheezing, no rales, no rhonchi Cardiovascular: RRR, no significant murmur Gastrointestinal: soft, positive bowel sounds Neurological: non-focal, moves all 4 limbs Psychiatric: normal affect, A&O x 3 Deviation from normal: red, indurated rash on bilateral upper extremities and chest, no pain, no -: desquamation, no drainage or crusting Dx/Plan (1) Acute renal failure (ARF) Status: Acute Qualifiers: Acute renal failure type: with acute tubular necrosis Qualified Code(s): N17.0 - Acute kidney failure with tubular necrosis Comment: Mixed prerenal and ATN (2) Coronary artery disease Code(s): I25.10 - ATHSCL HEART DISEASE OF [place] CORONARY ARTERY W/O ANG PCTRS Status: Acute Qualifiers: Coronary Disease-Associated Artery/Lesion type: [place] artery Comment: S/P CABG (3) Acute on chronic diastolic (congestive) heart failure Code(s): I50.33 - ACUTE ON CHRONIC DIASTOLIC (CONGESTIVE) HEART FAILURE Status : Acute Comment: Diuresed and feeling better. (4) Normocytic anemia Code(s): D64.9 - ANEMIA, UNSPECIFIED Status: Acute Comment: Developed since 2017, uncertain eitiology, no renal failure, low iron levels, neg hemoccult. Suspect GI blood loss though not actively. Will need GI w/u as outpatient. (5) Diabetes type 2, controlled Code(s): E11.9 - TYPE 2 DIABETES MELLITUS WITHOUT COMPLICATIONS Status: Chronic (6) Hypertension Code(s): I10 - ESSENTIAL (PRIMARY) HYPERTENSION Status: Chronic (7) Rash Code(s): R21 - RASH AND OTHER NONSPECIFIC SKIN ERUPTION Status: Acute Comment: Possible drug reaction but not sure what to, not on anything likely currently. ?abx after CABG? Observe closely. Patient too hold off on psoriasis injection due to infectious risk with recent CABG - Plan cont current plan of care, PT/OT, DVT proph w/lovenox * . - Discharge Day Encounter end time: 09:00
[2017-06-20] MEDS: Aspirin 325 mg Enteric Coated Tablet PO SCH (08:42)
[2017-06-20] MEDS: Famotidine 20 MG TAB PO SCH (08:42)
[2017-06-20] MEDS: Carvedilol 3.125 MG TAB PO SCH ×3 (08:42→21:08)
[2017-06-20] MEDS: Amlodipine 5 MG TAB PO SCH (08:43)
[2017-06-20] MEDS: Silver Sulfadiazine 1% Cream 50 GM JAR TOP SCH ×2 (08:43→21:09)
[2017-06-20] MEDS ORDERED: Adalimumab 40 MG/0.8 ML SYRINGE SC SCH (09:00)
--- NOTE | 2017-06-20 10:24 | PRG ---
DATE OF SERVICE: 06/20/2017 Ms. Sung is a 77-year-old white female who underwent CABG and being followed by the Renal Service fo r her acute kidney injury. I did review her urine sediment a few days ago and there is already findi ngs of pigmented granular cast. Her renal function continues to worsen. This is in spite of colloid infusion and transient crystalloid infusion yesterday. This patient most likely has an established acute tubular necrosis and management will be essentially be supportive. Currently, the patient denies any chest pain, shortness of breath. Her appetite is improved. She vo ices no complaints of nausea or vomiting. OBJECTIVE: VITAL SIGNS: Blood pressure 153/69, heart rate 66, respiratory rate 20, temperature 97.9, pulse oxim etry 95%. GENERAL: Noted to be awake, alert, sitting comfortable, not in distress. SKIN: Adequate turgor. HEENT: Slightly pale conjunctivae, anicteric sclerae. NECK: No neck mass, no carotid bruits, no JVD. CHEST: No deformities. LUNGS: Decreased breath sounds. HEART: Normal sinus rhythm. No murmur, no gallops, no rubs. ABDOMEN: Globular, soft, nontender, no masses. EXTREMITIES: No edema. MEDICATIONS: 06/20/2017 was reviewed. LABORATORY: On 06/20/2017, white count 8.4, hemoglobin 8.1. Sodium 135, potassium 4.3, chloride 105 , carbon dioxide 20, BUN 62, creatinine 2.88, GFR 16 mL per minute. Calcium is 8.5. ASSESEEMENT AND PLAN: 1. Acute kidney injury - secondary to acute tubular necrosis - worsening renal dysfunction. We will continue current management. Continue to observe. Hopefully, the patient's renal function will fredy teau. There is no indication for any dialytic intervention with this patient. We will continue to m onitor renal function daily. Please note, she is not on any nephrotoxic drugs. We will check base m et and CBC in a.m. 2. Status post coronary artery bypass graft, stable. Cardiothoracic Surgery and Cardiology is follo wing. Continue supportive care.
[2017-06-20] MEDS: Insulin Regular 300 UNITS/3 ML VIAL SC PRN (18:23)
[2017-06-20] MEDS: Rosuvastatin 10 MG TAB PO SCH (21:08)
[2017-06-20] MEDS: Milk Of Magnesia 30 ML UDCUP PO PRN (21:08)
[2017-06-21] MEDS: Levothyroxine Sodium 88 MCG TAB PO SCH (06:07)
[2017-06-21 06:41] LABS: #Eosinphils 0.5 thou/uL (0.0-0.7); #Lymphocytes 1.2 thou/uL (1.20-3.40); #Monocytes 0.9 thou/uL (0.11-0.59); #Neutrophils 7.3 thou/uL (1.40-6.50); %Basophils 0.4 % (0.0-1.0); %Eosinophils 5.2 % (0.0-10.0); %Monocytes 9.2 % (0.0-10.0); %Neutrophils 73.2 % (42.0-75.0); Hemoglobin 8.1 g/dL (12.0-16.0); Mean Corpuscular HGB CONC 31.3 g/dL (32.0-36.0); Mean Corpuscular Hemoglobin 27.9 pg (27.0-31.0); Mean Corpuscular Volume 89.3 fl (81.0-99.0); Mean Platelet Volume 8.3 fL (7.4-10.4); Platelet Count 121 thou/uL (130-400); Red Blood Cell (RBC) Count 2.88 mill/uL (4.20-5.40); White Blood Cell (WBC) Count 9.9 thou/uL (4.8-10.8)
[2017-06-21 06:51] LABS: Anion Gap 16 mmol/L (10-20); BUN (Urea Nitrogen) 66 mg/dL (9.8-20.1); Calc. Creatinine Clearance 19 mL/min (70-130); Calcium 8.8 mg/dL (7.8-10.44); Carbon Dioxide 21 mmol/L (23-31); Chloride 102 mmol/L (98-107); Estimated GFR-MDRD 14; Glucose 95 mg/dL (83-110); Potassium 4.4 mmol/L (3.5-5.1); Sodium 135 mmol/L (136-145)
--- NOTE | 2017-06-21 07:08 | PDOC.PN ---
- Subjective Encounter Start Date: 06/21/17 Encounter Start Time: 07:07 Subjective: seen and examined without any new complaint - Objective Vital Signs & Weight: Vital Signs (12 hours) Temp Pulse Resp BP Pulse Ox 06/21/17 04:00 98.0 F 63 18 130/62 97 06/21/17 00:00 97.6 F 62 18 119/57 L 97 06/20/17 20:00 97.6 F 65 20 144/66 H 96 Weight Admit Weight 167 lb 3.2 oz Weight 179 lb 9.6 oz Most Recent Monitor Data Heart Rate from ECG 80 NIBP 161/59 NIBP BP-Mean 104 Respiration from ECG 13 SpO2 96 I&O: 06/20/17 06/21/17 06/22/17 06:59 06:59 06:59 Intake Total 940 Output Total 250 Balance 690 Result Diagrams: 06/21/17 06:17 06/21/17 06:17 Additional Labs: Accuchecks 06/21/17 06/20/17 06/20/17 06:04 20:49 16:53 POC Glucose 109 137 H 161 H 06/20/17 11:32 POC Glucose 131 H Phys Exam - Physical Examination Constitutional: NAD HEENT: PERRLA, moist MMs, sclera anicteric, TM's clear Neck: no nodes, no JVD, supple, full ROM Respiratory: no wheezing, no rales, no rhonchi, clear to auscultation bilateral Cardiovascular: RRR, no significant murmur Gastrointestinal: soft, non-tender, no distention, positive bowel sounds Musculoskeletal: no edema, pulses present Dx/Plan (1) Acute on chronic diastolic (congestive) heart failure Code(s): I50.33 - ACUTE ON CHRONIC DIASTOLIC (CONGESTIVE) HEART FAILURE Status : Acute Comment: Diuresed and feeling better. (2) Acute renal failure (ARF) Status: Acute Qualifiers: Acute renal failure type: with acute tubular necrosis Qualified Code(s): N17.0 - Acute kidney failure with tubular necrosis Plan: Creatinine still rising Comment: Mixed prerenal and ATN (3) Coronary artery disease Code(s): I25.10 - ATHSCL HEART DISEASE OF [place] CORONARY ARTERY W/O ANG PCTRS Status: Acute Qualifiers: Coronary Disease-Associated Artery/Lesion type: [place] artery Comment: S/P CABG (4) NSTEMI (non-ST elevated myocardial infarction) Code(s): I21.4 - NON-ST ELEVATION (NSTEMI) MYOCARDIAL INFARCTION Status: Acute (5) Normocytic anemia Code(s): D64.9 - ANEMIA, UNSPECIFIED Status: Acute Comment: Developed since 2017, uncertain eitiology, no renal failure, low iron levels, neg hemoccult. Suspect GI blood loss though not actively. Will need GI w/u as outpatient. (6) S/P CABG (coronary artery bypass graft) Code(s): Z95.1 - PRESENCE OF AORTOCORONARY BYPASS GRAFT Status: Acute (7) Chronic anemia Code(s): D64.9 - ANEMIA, UNSPECIFIED Status: Chronic Comment: yamil DICKSON.s/ p IV iron (8) Moderate aortic stenosis Code(s): I35.0 - NONRHEUMATIC AORTIC (VALVE) STENOSIS Status: Chronic - Plan plan discussed w/ family, PT/OT, renal social worker, DVT proph w/lovenox Renal following--creatinine is still rising -: Awaiting Rehab authorization and creatinine plateau * .
[2017-06-21] MEDS: Amlodipine 5 MG TAB PO SCH (09:28)
[2017-06-21] MEDS: Famotidine 20 MG TAB PO SCH (09:28)
[2017-06-21] MEDS: Aspirin 325 mg Enteric Coated Tablet PO SCH (09:28)
[2017-06-21] MEDS: Carvedilol 3.125 MG TAB PO SCH ×3 (09:28→20:51)
[2017-06-21] MEDS: Silver Sulfadiazine 1% Cream 50 GM JAR TOP SCH ×2 (09:29→20:51)
--- NOTE | 2017-06-21 12:54 | PDOC.CTH ---
<Brenda Devlin - Last Filed: 06/21/17 12:51> Cardiology Progress Note - Subjective The pt seen and examined. No overnight events. No cardiac complains. She was walking with PT today. She denied CP or discomfort or other cardiac complaints during the exercise. Family concern the pt's rash. - Objective Vital Signs Temp Pulse Resp BP BP Pulse Ox 06/21/17 11:10 97.5 F L 63 16 149/65 H 92 L 06/21/17 09:28 60 157/67 H 06/21/17 07:25 97.3 F L 60 18 157/67 H 99 06/21/17 04:00 98.0 F 63 18 130/62 97 Admit Weight 167 lb 3.2 oz Weight 179 lb 9.6 oz 06/20/17 06/21/17 06/22/17 06:59 06:59 06:59 Intake Total 1300 Output Total 561 Balance 739 - Physical Examination General/Neuro: alert & oriented x3 Neck: no JVD present Lungs: CTA (diminsihed at bases; ) Heart: RRR Abdomen: soft Extremities: other: (2-3 pitting BLE edema) - Telemetry Telemetry Rhythm: SR with BBB - Labs Result Diagrams: 06/21/17 06:17 06/21/17 06:17 Troponin/CKMB CK-MB (CK-2) 1.7 ng/mL (0-6.6) 06/08/17 17:30 Troponin I 0.050 ng/mL (< 0.028) H 06/09/17 02:30 - Assessment/Plan 1. CAD with S/p CABG x4 with LEIVA-LAD, reversed saph-diag, reversed saph-OM, reversed saph-acute margial branch; Stable; on BBlocker and ASA; not on RONALDO due to renal function; cont. monitor on tele 2. Acute renal failure with tubular necrosis - Cr level is worsened today; managed by marine engine mechanic 3. Acute on chronic diastolic HF - stable with RA; cont. monitor 4. HTN- Increase Norvasc from 5mg to 10mg QD; not on RONALDO due to renal function; cont. monitor 5. DM type 2 - on ACHS SS Insulin; managed by PCP 6. Hyperlipidemia - on Statin 7. Hypothyroidism - managed by PCP 8. Rash - unknown etiology; cont. monitor 9. BLE edema - Instructed to wear compression stockings and raise her BLE while resting MAR reviewed . Review of Systems - Review of Systems Constitutional: reports: weakness EENTM: reports: no symptoms reported Respiratory: reports: no symptoms reported Cardiac (ROS): reports: no symptoms reported ABD/GI: reports: no symptoms reported : reports: no symptoms reported Musculoskeletal: reports: no symptoms reported Skin: reports: no symptoms reported Neurological: reports: no symptoms reported <Malinda Real - Last Filed: 06/21/17 19:19> Cardiology Progress Note - Objective Vital Signs Temp Pulse Pulse Pulse Resp BP BP 06/21/17 15:31 66 63 159/65 H 06/21/17 15:10 97.9 F 65 15 06/21/17 11:19 66 63 133/62 06/21/17 11:10 97.5 F L 63 16 06/21/17 09:28 60 157/67 H 06/21/17 07:25 97.3 F L 60 18 BP BP Pulse Ox Pulse Ox Pulse Ox 06/21/17 15:31 137/63 97 97 06/21/17 15:10 133/66 97 06/21/17 11:19 162/68 H 96 99 06/21/17 11:10 149/65 H 92 L 06/21/17 09:28 06/21/17 07:25 157/67 H 99 Admit Weight 167 lb 3.2 oz Weight 179 lb 9.6 oz 06/20/17 06/21/17 06/22/17 06:59 06:59 06:59 Intake Total 1300 Output Total 561 Balance 739 - Labs Result Diagrams: 06/21/17 06:17 06/21/17 06:17 Troponin/CKMB CK-MB (CK-2) 1.7 ng/mL (0-6.6) 06/08/17 17:30 Troponin I 0.050 ng/mL (< 0.028) H 06/09/17 02:30 - Assessment/Plan Pt. seen and eval. I agree with the A/P by the CDL PROGRAM COORDINATOR. Chest clear, RRR, 2-3+ edema.
--- NOTE | 2017-06-21 16:49 | PRG ---
DATE OF SERVICE: 06/21/2017 SUBJECTIVE: Ms. Sung is a 77-year-old female, who underwent CABG, seen by Renal service fo r acute kidney injury secondary to presumptive acute tubular necrosis. Initially we felt this was pr erenal. She was given empiric volume repletion ; however, renal function continued to worsen. In addition, review of the urine sediment showed pigmented granular casts suggestive of acute tubular necrosis. Currently, the patient is asymptomatic. The patient voices no complaints of chest pain o r shortness of breath. PHYSICAL EXAMINATION: VITAL SIGNS: Blood pressure is 157/67, heart rate 60, respiratory rate 18, temperature 97.3, pulse o x 99%. GENERAL: Noted to be awake, alert, comfortable, not in distress. SKIN: Adequate turgor. HEENT: She has pinkish conjunctivae, anicteric sclerae. NECK: No neck mass, no carotid bruits, no JVD. CHEST: No deformities. LUNGS: Decreased breath sounds left. Clear breath sounds right. HEART: Normal sinus rhythm. No murmur, no gallops, no rubs. ABDOMEN: Globular, soft, nontender. No masses. EXTREMITIES: No edema, no deformities. MEDICATIONS: 06/21/2017 was reviewed. LABORATORY DATA: 06/21/2017: White count 9.9, hemoglobin 8.1. Sodium 135, potassium 4.4, chloride 102, carbon dioxide 21, BUN 66, creatinine 3.26, calcium is 8.8. ASSESSMENT AND PLAN: 1. Acute kidney injury - secondary to presumed ischemic acute tubular necrosis. Creatinine continue s to worsen. Most recent creatinine is 3.26. GFR is 14 mL per minute. No indication, at the presen t time for any dialytic intervention. The plan is simply to observe her. Hopefully, the renal funct ion will plateau and will not necessitate dialytic intervention. For the moment, I would suggest hol d off diuretics or RONALDO inhibitors. 2. Status post coronary artery bypass graft. Continue supportive care. Surgery and Cardiology is clovis garrido. 3. Anemia. Continue to observe. We will recheck CBC in a.m. ADDENDUM: I had a long discussion with the patient's regarding diagnosis and prognosis.
[2017-06-21] MEDS: Rosuvastatin 10 MG TAB PO SCH (20:51)
[2017-06-22] MEDS: Levothyroxine Sodium 88 MCG TAB PO SCH (05:23)
[2017-06-22 05:28] LABS: #Basophils 0.1 thou/uL (0.0-0.2); #Eosinphils 0.4 thou/uL (0.0-0.7); #Lymphocytes 1.1 thou/uL (1.20-3.40); #Monocytes 0.6 thou/uL (0.11-0.59); %Basophils 0.9 % (0.0-1.0); %Eosinophils 3.9 % (0.0-10.0); %Lymphocytes 12.4 % (21.0-51.0); %Neutrophils 75.9 % (42.0-75.0); Hemoglobin 8.3 g/dL (12.0-16.0); Mean Corpuscular HGB CONC 30.8 g/dL (32.0-36.0); Mean Corpuscular Hemoglobin 27.6 pg (27.0-31.0); Mean Corpuscular Volume 89.5 fl (81.0-99.0); Mean Platelet Volume 8.4 fL (7.4-10.4); Platelet Count 120 thou/uL (130-400); Red Blood Cell (RBC) Count 3.02 mill/uL (4.20-5.40); White Blood Cell (WBC) Count 9.2 thou/uL (4.8-10.8)
[2017-06-22 05:41] LABS: Anion Gap 18 mmol/L (10-20); BUN (Urea Nitrogen) 69 mg/dL (9.8-20.1); Calc. Creatinine Clearance 19 mL/min (70-130); Calcium 8.6 mg/dL (7.8-10.44); Carbon Dioxide 17 mmol/L (23-31); Chloride 102 mmol/L (98-107); Estimated GFR-MDRD 14; Glucose 104 mg/dL (83-110); Potassium 4.7 mmol/L (3.5-5.1); Sodium 132 mmol/L (136-145)
--- NOTE | 2017-06-22 08:01 | PDOC.PN ---
- Subjective Encounter Start Date: 06/22/17 Encounter Start Time: 08:30 Subjective: Rash starting to peel. A little wheezing this AM resolved with neb. No -: other complaints. - Objective MAR Reviewed: Yes Vital Signs & Weight: Vital Signs (12 hours) Temp Pulse Resp BP BP Pulse Ox 06/22/17 07:30 97.5 F L 61 18 160/65 H 99 06/22/17 06:42 63 12 06/22/17 04:00 98.3 F 62 20 164/71 H 98 06/22/17 00:00 97.1 F L 61 20 140/63 97 06/21/17 20:00 96.1 F L 61 20 140/64 96 Weight Admit Weight 167 lb 3.2 oz Weight 184 lb Most Recent Monitor Data Heart Rate from ECG 80 NIBP 161/59 NIBP BP-Mean 104 Respiration from ECG 13 SpO2 96 I&O: 06/21/17 06/22/17 06/23/17 06:59 06:59 06:59 Intake Total 1300 360 Output Total 561 320 Balance 739 40 Result Diagrams: 06/22/17 05:04 06/22/17 05:04 Additional Labs: Accuchecks 06/22/17 06/21/17 06/21/17 06:49 21:03 17:26 POC Glucose 111 H 131 H 142 H 06/21/17 12:03 POC Glucose 156 H Phys Exam - Physical Examination Constitutional: NAD HEENT: moist MMs Respiratory: no wheezing, no rales, no rhonchi Cardiovascular: RRR Gastrointestinal: soft, positive bowel sounds Neurological: non-focal, moves all 4 limbs Psychiatric: normal affect, A&O x 3 Deviation from normal: red rash on extremities starting to lighten up, less induration, desquamati -: on arms and back Dx/Plan (1) Acute renal failure (ARF) Status: Acute Qualifiers: Acute renal failure type: with acute tubular necrosis Qualified Code(s): N17.0 - Acute kidney failure with tubular necrosis Comment: ATN, seems to be beginning to plateau today (2) Coronary artery disease Code(s): I25.10 - ATHSCL HEART DISEASE OF [place] CORONARY ARTERY W/O ANG PCTRS Status: Acute Qualifiers: Coronary Disease-Associated Artery/Lesion type: [place] artery Comment: S/P CABG (3) Acute on chronic diastolic (congestive) heart failure Code(s): I50.33 - ACUTE ON CHRONIC DIASTOLIC (CONGESTIVE) HEART FAILURE Status : Acute Comment: Diuresed and feeling better. (4) Normocytic anemia Code(s): D64.9 - ANEMIA, UNSPECIFIED Status: Acute Comment: Developed since 2017, uncertain eitiology, no renal failure, low iron levels, neg hemoccult. Suspect GI blood loss though not actively. Will need GI w/u as outpatient. (5) Diabetes type 2, controlled Code(s): E11.9 - TYPE 2 DIABETES MELLITUS WITHOUT COMPLICATIONS Status: Chronic (6) Hypertension Code(s): I10 - ESSENTIAL (PRIMARY) HYPERTENSION Status: Chronic (7) Rash Code(s): R21 - RASH AND OTHER NONSPECIFIC SKIN ERUPTION Status: Acute Comment: Possible drug reaction but not sure what to, not on anything likely currently. ?abx after CABG? Observe closely. Patient too hold off on psoriasis injection due to infectious risk with recent CABG. Improving so will hold off on steroids. - Plan cont current plan of care, PT/OT, DVT proph w/lovenox * . - Discharge Day Encounter end time: 09:00
[2017-06-22] MEDS: Amlodipine 5 MG TAB PO SCH (09:25)
[2017-06-22] MEDS: Famotidine 20 MG TAB PO SCH (09:25)
[2017-06-22] MEDS: Aspirin 325 mg Enteric Coated Tablet PO SCH (09:26)
[2017-06-22] MEDS: Silver Sulfadiazine 1% Cream 50 GM JAR TOP SCH (09:26)
[2017-06-22] MEDS: Carvedilol 3.125 MG TAB PO SCH ×3 (09:26→21:12)
--- NOTE | 2017-06-22 09:57 | PRG ---
DATE OF SERVICE: 06/22/2017 SUBJECTIVE: Ms. Sung is a 77-year-old female who is status post coronary artery bypass gra ft. She is seen by the Renal Service for acute kidney injury secondary to presumptive diagnosis of i schemic acute tubular necrosis. Review of urine sediment shows pigmented granular cast. She was emp irically volume repleted with no improvement. Her most recent creatinine this morning showed a value of 3.3. Yesterday this was 3.2. She voices no new complaints. She has diffuse erythema on her body. She is getting symptomatic chet tment for this. The etiology of this is of unclear etiology. PHYSICAL EXAMINATION: VITAL SIGNS: Blood pressure 160/65, heart rate 61, respiratory rate 18, temperature 97.5, pulse ox 9 9%. GENERAL: Noted to be awake, alert, supine, comfortable, not in overt distress. SKIN: Adequate turgor. Positive for a erythema on her face and arms. HEENT: Pinkish conjunctivae. Anicteric sclerae. NECK: No neck mass, no carotid bruits. No JVD. CHEST: No deformities. LUNGS: Decreased breath sounds left, right clear breath sounds. HEART: Normal sinus rhythm. No murmur, no gallops or rubs. ABDOMEN: Globular, soft, nontender, no masses. EXTREMITIES: No edema, no deformities. MEDICATIONS: 06/22/2017 - Reviewed. LABORATORY: 06/22/2017 - Sodium 132, potassium 4.7, chloride 102, carbon dioxide 17, BUN 69, creatin ine 3.3, glucose 104, calcium 8.6. ASSESSMENT AND PLAN: 1. Acute kidney injury - secondary to a presumed ischemic acute tubular necrosis. With a creatinine of 3.3 she may be plateauing with her renal dysfunction. Yesterday's creatinine was 3.26. Her GFR remains unchanged. There is no indication for any dialytic intervention. The patient's potassium is within normal and she is not overtly volume overloaded. We will continue supportive care with this patient. As previously mentioned, no dialysis for the moment. Recheck basic metabolic panel and CBC in a.m. 2. Status post coronary artery bypass graft, doing well, Surgery and Cardiology is following.
--- NOTE | 2017-06-22 11:35 | PDOC.CTH ---
<Brenda Devlin - Last Filed: 06/22/17 11:33> Cardiology Progress Note - Subjective the pt seen and examined. No overnight events. No cardiac complaints. She is the bed resting. She denied any discomfort from rash. - Objective Vital Signs Temp Pulse Resp BP BP BP Pulse Ox 06/22/17 09:25 61 160/65 H 06/22/17 07:35 97.5 F L 61 18 99 06/22/17 07:30 97.5 F L 61 18 160/65 H 99 06/22/17 06:42 63 12 06/22/17 04:00 98.3 F 62 20 164/71 H 98 06/22/17 00:00 97.1 F L 61 20 140/63 97 Admit Weight 167 lb 3.2 oz Weight 184 lb 06/21/17 06/22/17 06/23/17 06:59 06:59 06:59 Intake Total 1300 360 Output Total 561 320 Balance 739 40 - Physical Examination General/Neuro: alert & oriented x3 Neck: no JVD present Lungs: CTA Heart: RRR Abdomen: soft Extremities: other: (2-3+ pitting; Lt> Rt) - Telemetry Telemetry Rhythm: SR with BBB 60s - Labs Result Diagrams: 06/22/17 05:04 06/22/17 05:04 Troponin/CKMB CK-MB (CK-2) 1.7 ng/mL (0-6.6) 06/08/17 17:30 Troponin I 0.050 ng/mL (< 0.028) H 06/09/17 02:30 - Assessment/Plan 1. CAD with S/p CABG x4 with LEIVA-LAD, reversed saph-diag, reversed saph-OM, reversed saph-acute margial branch; Stable; on BBlocker and ASA; not on RONALDO due to renal function; cont. monitor on tele 2. Acute renal failure with tubular necrosis - Cr level is worsened today; managed by surgical resident 3. Acute on chronic diastolic HF - stable with RA; cont. monitor 4. HTN- Increase Norvasc from 5mg to 10mg QD; not on RONALDO due to renal function; cont. monitor 5. DM type 2 - on ACHS SS Insulin; managed by PCP 6. Hyperlipidemia - on Statin 7. Hypothyroidism - managed by PCP 8. Rash - unknown etiology; cont. monitor 9. BLE edema - Instructed to wear compression stockings and raise her BLE while resting MAR reviewed Review of Systems - Review of Systems Constitutional: reports: no symptoms reported EENTM: reports: no symptoms reported Respiratory: reports: no symptoms reported Cardiac (ROS): reports: no symptoms reported ABD/GI: reports: no symptoms reported : reports: no symptoms reported Musculoskeletal: reports: no symptoms reported <Malinda Real - Last Filed: 06/22/17 17:51> Cardiology Progress Note - Objective Vital Signs Temp Pulse Resp BP BP Pulse Ox 06/22/17 16:48 68 12 06/22/17 15:40 97.5 F L 61 18 143/61 H 99 06/22/17 12:40 59 L 171/71 H 06/22/17 11:05 97.9 F 59 L 19 171/71 H 97 06/22/17 09:25 61 160/65 H 06/22/17 07:35 97.5 F L 61 18 99 06/22/17 07:30 97.5 F L 61 18 160/65 H 99 06/22/17 06:42 63 12 Admit Weight 167 lb 3.2 oz Weight 184 lb 06/21/17 06/22/17 06/23/17 06:59 06:59 06:59 Intake Total 1300 360 Output Total 561 320 Balance 739 40 - Labs Result Diagrams: 06/22/17 05:04 06/22/17 05:04 Troponin/CKMB CK-MB (CK-2) 1.7 ng/mL (0-6.6) 06/08/17 17:30 Troponin I 0.050 ng/mL (< 0.028) H 06/09/17 02:30 - Assessment/Plan Pt. seen and evaluated by me. I agree with the A/P by the CYBER SYSTEMS ADMINISTRATOR.
[2017-06-22] MEDS ORDERED: Amlodipine 5 MG TAB PO SCH (12:00)
[2017-06-22] MEDS: Insulin Regular 300 UNITS/3 ML VIAL SC PRN (18:59)
[2017-06-22] MEDS: Rosuvastatin 10 MG TAB PO SCH (21:12)
[2017-06-23 05:39] LABS: Anion Gap 15 mmol/L (10-20); BUN (Urea Nitrogen) 71 mg/dL (9.8-20.1); Calc. Creatinine Clearance 19 mL/min (70-130); Calcium 8.5 mg/dL (7.8-10.44); Carbon Dioxide 20 mmol/L (23-31); Chloride 103 mmol/L (98-107); Estimated GFR-MDRD 14; Glucose 107 mg/dL (83-110); Potassium 4.5 mmol/L (3.5-5.1); Sodium 133 mmol/L (136-145)
[2017-06-23] MEDS: Levothyroxine Sodium 88 MCG TAB PO SCH (05:56)
[2017-06-23 08:10] VITALS: BMI 31.4
--- NOTE | 2017-06-23 09:17 | PRG ---
DATE OF SERVICE: 06/23/2017 SUBJECTIVE: Ms. Sung is a 77-year-old female who underwent CABG, she was seen by the Renal Service for acute kidney injury secondary to presumed ischemic acute tubular necrosis. No new compl aints today. She has some facial erythema that could be related to some of her medications. She has been treated symptomatically. No complaints of chest pain or shortness of breath. PHYSICAL EXAMINATION: VITAL SIGNS: Blood pressure is 146/67, heart rate 62, respiratory rate 18, temperature 97.6, pulse o x 97%. GENERAL: Noted to be awake, comfortable, not in distress. SKIN: Adequate turgor. HEENT: Slightly erythematous face, pinkish conjunctivae, anicteric sclerae. NECK: No neck mass, no carotid bruits, no JVD. CHEST: No deformities. LUNGS: Decreased breath sounds left, clear breath sounds right. HEART: Normal sinus rhythm. No murmur, no gallops or rubs. ABDOMEN: Globular, soft, nontender. No masses. EXTREMITIES: Trace edema. MEDICATIONS: 06/23/2017 - Reviewed. LABORATORY: 06/23/2017 - White count 9.2, hemoglobin 8.3, hematocrit 27. Sodium 133, potassium 4.5, chloride 103, carbon dioxide 20, BUN 71, creatinine 3.26, GFR 14 mL per minute. Calcium is 8.5. ASSESSMENT AND PLAN: 1. Acute kidney injury - secondary to ischemic acute tubular necrosis. Renal function has been plat eauing. Continue current management. Continue to hold off diuretics for the moment or any RONALDO inhib itors. There is no indication for any dialytic intervention. Most recent creatinine is now noted at 3.26 2. Anemia. Continue to observe, p.r.n. blood transfusion. 3. Status post coronary artery bypass graft, stable, followed by Surgery and Cardiology. Overall, agree with current management. As previously mentioned, no indication for dialytic interven tion. Recheck base met and CBC in the a.m.
[2017-06-23] MEDS: Famotidine 20 MG TAB PO SCH (09:25)
[2017-06-23] MEDS: Amlodipine 10 MG TAB PO SCH (09:26)
[2017-06-23] MEDS: Aspirin 325 mg Enteric Coated Tablet PO SCH (09:26)
[2017-06-23] MEDS: Carvedilol 3.125 MG TAB PO SCH (09:26)
--- NOTE | 2017-06-23 13:30 | PDOC.PN ---
- Subjective Encounter Start Date: 06/23/17 Encounter Start Time: 16:00 Subjective: No SOB or cough. Working with PT. Awaiting rehab approval. Rash not -: bothering her right now. - Objective MAR Reviewed: Yes Vital Signs & Weight: Vital Signs (12 hours) Temp Pulse Resp BP BP BP Pulse Ox 06/23/17 12:36 97.5 F L 63 20 157/67 H 95 06/23/17 09:29 61 22 H 97 06/23/17 09:26 62 146/67 H 06/23/17 08:22 97.6 F 62 18 146/67 H 97 06/23/17 04:00 97.3 F L 60 18 118/57 L 97 Weight Admit Weight 167 lb 3.2 oz Weight 183 lb Most Recent Monitor Data Heart Rate from ECG 80 NIBP 161/59 NIBP BP-Mean 104 Respiration from ECG 13 SpO2 96 I&O: 06/22/17 06/23/17 06/24/17 06:59 06:59 06:59 Intake Total 360 480 Output Total 320 600 Balance 40 -120 Result Diagrams: 06/22/17 05:04 06/23/17 04:40 Additional Labs: Accuchecks 06/23/17 06/23/17 06/22/17 11:46 05:42 20:03 POC Glucose 183 H 121 H 143 H 06/22/17 16:59 POC Glucose 169 H Phys Exam - Physical Examination Constitutional: NAD HEENT: moist MMs Respiratory: no wheezing, no rales, no rhonchi Cardiovascular: RRR, no significant murmur Gastrointestinal: soft, positive bowel sounds Neurological: non-focal, moves all 4 limbs Psychiatric: normal affect, A&O x 3 Deviation from normal: red rash faded on arms and desquamating, still red on cheeks and around -: sternotomy area, not tender or warm Dx/Plan (1) Acute renal failure (ARF) Status: Acute Qualifiers: Acute renal failure type: with acute tubular necrosis Qualified Code(s): N17.0 - Acute kidney failure with tubular necrosis Comment: ATN, creatinine stable at 3.26 (2) Coronary artery disease Code(s): I25.10 - ATHSCL HEART DISEASE OF [place] CORONARY ARTERY W/O ANG PCTRS Status: Acute Qualifiers: Coronary Disease-Associated Artery/Lesion type: [place] artery Comment: S/P CABG (3) Acute on chronic diastolic (congestive) heart failure Code(s): I50.33 - ACUTE ON CHRONIC DIASTOLIC (CONGESTIVE) HEART FAILURE Status : Acute Comment: Diuresed and feeling better. (4) Normocytic anemia Code(s): D64.9 - ANEMIA, UNSPECIFIED Status: Acute Comment: Developed since 2017, uncertain eitiology, no renal failure, low iron levels, neg hemoccult. Suspect GI blood loss though not actively. Will need GI w/u as outpatient. (5) Diabetes type 2, controlled Code(s): E11.9 - TYPE 2 DIABETES MELLITUS WITHOUT COMPLICATIONS Status: Chronic (6) Hypertension Code(s): I10 - ESSENTIAL (PRIMARY) HYPERTENSION Status: Chronic (7) Rash Code(s): R21 - RASH AND OTHER NONSPECIFIC SKIN ERUPTION Status: Acute Comment: Possible drug reaction but not sure what to, not on anything likely currently. ?abx after CABG? Observe closely. Patient too hold off on psoriasis injection due to infectious risk with recent CABG. Improving so will hold off on steroids. - Plan cont current plan of care, PT/OT, out of bed/ambulate To rehab when cleared by nephrology, possibly tomorrow -: Insurance authorization for rehab at [facility] pending. * . - Discharge Day Encounter end time: 16:30
--- NOTE | 2017-06-23 14:11 | PDOC.CTH ---
Cardiology Progress Note - Subjective No complaints. She has not had a BM but does not feel like having one. She is getting stool softeners. She is getting up with her walker but ortiz snot increased her PT significantly. - Objective Vital Signs Temp Pulse Resp BP BP BP Pulse Ox 06/23/17 12:36 97.5 F L 63 20 157/67 H 95 06/23/17 09:29 61 22 H 97 06/23/17 09:26 62 146/67 H 06/23/17 08:22 97.6 F 62 18 146/67 H 97 06/23/17 04:00 97.3 F L 60 18 118/57 L 97 Admit Weight 167 lb 3.2 oz Weight 183 lb 06/22/17 06/23/17 06/24/17 06:59 06:59 06:59 Intake Total 360 480 Output Total 320 600 Balance 40 -120 - Physical Examination General/Neuro: alert & oriented x3, NAD Neck: no JVD present Lungs: unlabored respirations Heart: RRR Abdomen: NT/ND Extremities: + edema B (1+) - Telemetry Telemetry Rhythm: NSR - Labs Result Diagrams: 06/22/17 05:04 06/23/17 04:40 Troponin/CKMB CK-MB (CK-2) 1.7 ng/mL (0-6.6) 06/08/17 17:30 Troponin I 0.050 ng/mL (< 0.028) H 06/09/17 02:30 - Assessment/Plan 1. CAD with S/p CABG x4 with LEIVA-LAD, reversed saph-diag, reversed saph-OM, reversed saph-acute margial branch; Stable; on BBlocker, ASA, statin; not on RONALDO due to renal function. 2. Acute renal failure with tubular necrosis - followed by relay assembler 3. Acute on chronic diastolic HF - improved. 4. HTN, will increase BB. 5. DM type 2. 6. Hyperlipidemia 7. Hypothyroidism PLAN: - Increase coreg - Increase PT. - Will need placement at rehab facility.
[2017-06-23] MEDS: Carvedilol 6.25 MG TAB PO SCH (17:39)
[2017-06-23] MEDS: Rosuvastatin 10 MG TAB PO SCH (21:22)
[2017-06-24 05:22] LABS: #Eosinphils 0.4 thou/uL (0.0-0.7); #Lymphocytes 1.1 thou/uL (1.20-3.40); #Monocytes 0.7 thou/uL (0.11-0.59); #Neutrophils 5.5 thou/uL (1.40-6.50); %Basophils 0.6 % (0.0-1.0); %Eosinophils 4.6 % (0.0-10.0); %Lymphocytes 13.8 % (21.0-51.0); %Monocytes 8.8 % (0.0-10.0); Hemoglobin 8.7 g/dL (12.0-16.0); Mean Corpuscular HGB CONC 31.6 g/dL (32.0-36.0); Mean Corpuscular Hemoglobin 28.4 pg (27.0-31.0); Mean Platelet Volume 8.5 fL (7.4-10.4); Platelet Count 126 thou/uL (130-400); RBC Distribution Width 20.9 % (11.5-14.5); Red Blood Cell (RBC) Count 3.04 mill/uL (4.20-5.40); White Blood Cell (WBC) Count 7.6 thou/uL (4.8-10.8)
[2017-06-24] MEDS: Levothyroxine Sodium 88 MCG TAB PO SCH (05:34)
[2017-06-24 05:37] LABS: Anion Gap 17 mmol/L (10-20); BUN (Urea Nitrogen) 69 mg/dL (9.8-20.1); Calc. Creatinine Clearance 20 mL/min (70-130); Calcium 8.8 mg/dL (7.8-10.44); Carbon Dioxide 19 mmol/L (23-31); Chloride 104 mmol/L (98-107); Estimated GFR-MDRD 14; Glucose 136 mg/dL (83-110); Potassium 4.5 mmol/L (3.5-5.1); Sodium 135 mmol/L (136-145)
[2017-06-24] MEDS: Carvedilol 6.25 MG TAB PO SCH ×2 (08:08→19:31)
[2017-06-24] MEDS: Aspirin 325 mg Enteric Coated Tablet PO SCH (08:08)
[2017-06-24] MEDS: Famotidine 20 MG TAB PO SCH (08:08)
[2017-06-24] MEDS: Amlodipine 10 MG TAB PO SCH (08:08)
--- NOTE | 2017-06-24 08:35 | PDOC.PN ---
- Subjective Encounter Start Date: 06/24/17 Encounter Start Time: 09:30 Subjective: Patient doing well. Rash just itching a bit on and off. SOB improved. -: Getting up with PT. - Objective MAR Reviewed: Yes Vital Signs & Weight: Vital Signs (12 hours) Temp Pulse Resp BP BP BP Pulse Ox 06/24/17 08:08 64 163/70 H 06/24/17 08:03 97.7 F 64 22 H 163/70 H 96 06/24/17 05:47 62 20 96 06/24/17 04:00 97.7 F 60 18 148/65 H 98 Weight Admit Weight 167 lb 3.2 oz Weight 183 lb Most Recent Monitor Data Heart Rate from ECG 80 NIBP 161/59 NIBP BP-Mean 104 Respiration from ECG 13 SpO2 96 I&O: 06/23/17 06/24/17 06/25/17 06:59 06:59 06:59 Intake Total 480 960 Output Total 600 925 Balance -120 35 Result Diagrams: 06/24/17 04:43 06/24/17 04:43 Additional Labs: Accuchecks 06/24/17 06/23/17 06/23/17 06:03 20:18 16:51 POC Glucose 158 H 204 H 211 H 06/23/17 11:46 POC Glucose 183 H Phys Exam - Physical Examination Constitutional: NAD HEENT: moist MMs Respiratory: no wheezing, no rales, no rhonchi Cardiovascular: RRR, no significant murmur Gastrointestinal: soft, positive bowel sounds Neurological: non-focal, moves all 4 limbs Psychiatric: normal affect Deviation from normal: redness mostly gone, just a bit on cheeks, arms desquamanating Dx/Plan (1) Acute renal failure (ARF) Status: Acute Qualifiers: Acute renal failure type: with acute tubular necrosis Qualified Code(s): N17.0 - Acute kidney failure with tubular necrosis Comment: ATN, creatinine starting to improve (2) Coronary artery disease Code(s): I25.10 - ATHSCL HEART DISEASE OF [place] CORONARY ARTERY W/O ANG PCTRS Status: Acute Qualifiers: Coronary Disease-Associated Artery/Lesion type: [place] artery Comment: S/P CABG (3) Acute on chronic diastolic (congestive) heart failure Code(s): I50.33 - ACUTE ON CHRONIC DIASTOLIC (CONGESTIVE) HEART FAILURE Status : Acute Comment: Diuresed and feeling better. Increasing Coreg (4) Normocytic anemia Code(s): D64.9 - ANEMIA, UNSPECIFIED Status: Acute Comment: Developed since 2017, uncertain eitiology, no renal failure, low iron levels, neg hemoccult. Suspect GI blood loss though not actively. Will need GI w/u as outpatient. (5) Diabetes type 2, controlled Code(s): E11.9 - TYPE 2 DIABETES MELLITUS WITHOUT COMPLICATIONS Status: Chronic (6) Hypertension Code(s): I10 - ESSENTIAL (PRIMARY) HYPERTENSION Status: Chronic (7) Rash Code(s): R21 - RASH AND OTHER NONSPECIFIC SKIN ERUPTION Status: Acute Comment: Possible drug reaction but not sure what to, not on anything likely currently. ?abx after CABG? Observe closely. Patient too hold off on psoriasis injection due to infectious risk with recent CABG. Improving so will hold off on steroids. - Plan cont current plan of care, PT/OT D/c once approved for rehab. * . - Discharge Day Encounter end time: 10:00
--- NOTE | 2017-06-24 09:18 | PRG ---
DATE OF SERVICE: 06/24/2017 RENAL MEDICINE SUBJECTIVE: Ms. Sung is a 77-year-old female who is status post CABG and was seen by the R enal Service for an acute kidney injury secondary to ischemic ATN. The patient was initially empiric ally volume repleted with colloids due to the possibility of prerenal azotemia. However, renal funct ion did not improve. Review of the urine sediment suggested she has a superimposed acute tubular nec rosis. This morning, she has no new complaints. She feels tired, but she denies any chest pain or s hortness of breath. OBJECTIVE: VITAL SIGNS: Blood pressure 160/70, heart rate 64, respiratory rate 22, temperature 97.7, O2 sat 96% . GENERAL: Awake, alert, comfortable, not in distress. SKIN: Adequate turgor. HEENT: Pinkish conjunctivae, anicteric sclerae. NECK: No neck mass, no carotid bruits, no JVD. CHEST: No deformities. LUNGS: Decreased breath sounds. No wheezing, no crackles. HEART: Normal sinus rhythm. No murmur, no gallops, no rubs. ABDOMEN: Globular, soft, nontender, no masses. EXTREMITIES: Trace edema. MEDICATIONS: Of 06/24/2017 was reviewed. LABORATORY DATA: Of 06/24/2017, white count 7.6, hemoglobin 8.7, hematocrit 27.4, sodium 135, potass ium 4.5, chloride 104, carbon dioxide 19, BUN 69, creatinine 3.12, GFR 14 mL per minute, glucose 136, calcium is 8.8. ASSESSMENT AND PLAN: 1. Acute kidney injury - secondary to post-ischemic acute tubular necrosis. Stabilizing renal funct ion. Creatinine is slightly improved from 3.26-3.12. No indication for any dialytic intervention. Continue supportive care, continue to optimize hemodynamics. 2. Anemia. We will continue to observe. P.r.n. blood transfusion. 2. Status post coronary artery bypass graft, stable. Cardiology and Surgery following. We will rec heck basic metabolic panel and CBC in a.m.
--- NOTE | 2017-06-24 12:16 | PDOC.CTH ---
Cardiology Progress Note - Subjective No new issues. - Objective Vital Signs Temp Pulse Pulse Pulse Resp BP BP 06/24/17 08:34 73 62 143/63 H 06/24/17 08:08 64 163/70 H 06/24/17 08:03 97.7 F 64 22 H 06/24/17 05:47 62 20 06/24/17 04:00 97.7 F 60 18 BP BP BP Pulse Ox 06/24/17 08:34 140/64 06/24/17 08:08 06/24/17 08:03 163/70 H 96 06/24/17 05:47 96 06/24/17 04:00 148/65 H 98 Admit Weight 167 lb 3.2 oz Weight 183 lb 06/23/17 06/24/17 06/25/17 06:59 06:59 06:59 Intake Total 480 960 Output Total 600 925 Balance -120 35 - Physical Examination General/Neuro: NAD Neck: no JVD present Lungs: unlabored respirations Heart: RRR Abdomen: NT/ND Extremities: + edema B (2+) - Telemetry Telemetry Rhythm: S Elie - Labs Result Diagrams: 06/24/17 04:43 06/24/17 04:43 Troponin/CKMB CK-MB (CK-2) 1.7 ng/mL (0-6.6) 06/08/17 17:30 Troponin I 0.050 ng/mL (< 0.028) H 06/09/17 02:30 - Assessment/Plan 1. CAD with S/p CABG x4 with LEIVA-LAD, reversed saph-diag, reversed saph-OM, reversed saph-acute margial branch; Stable; on BBlocker, ASA, statin; not on RONALDO due to renal function. 2. Acute renal failure with tubular necrosis. 3. Acute on chronic diastolic HF - improved. 4. HTN. 5. DM type 2. 6. Hyperlipidemia 7. Hypothyroidism PLAN: - Continue current meds. - Increase PT. - Placement at rehab facility.
[2017-06-24] MEDS: Milk Of Magnesia 30 ML UDCUP PO PRN (14:48)
[2017-06-24] MEDS: Rosuvastatin 10 MG TAB PO SCH (20:34)
[2017-06-24] MEDS: Insulin Regular 300 UNITS/3 ML VIAL SC PRN (22:24)
[2017-06-25 05:44] LABS: #Eosinphils 0.2 thou/uL (0.0-0.7); #Lymphocytes 0.8 thou/uL (1.20-3.40); #Monocytes 0.6 thou/uL (0.11-0.59); #Neutrophils 4.9 thou/uL (1.40-6.50); %Basophils 0.6 % (0.0-1.0); %Eosinophils 3.7 % (0.0-10.0); %Lymphocytes 12.6 % (21.0-51.0); %Monocytes 9.6 % (0.0-10.0); %Neutrophils 73.6 % (42.0-75.0); Hemoglobin 8.6 g/dL (12.0-16.0); Mean Corpuscular HGB CONC 31.6 g/dL (32.0-36.0); Mean Corpuscular Hemoglobin 28.6 pg (27.0-31.0); Mean Corpuscular Volume 90.4 fl (81.0-99.0); Mean Platelet Volume 8.7 fL (7.4-10.4); Platelet Count 122 thou/uL (130-400); RBC Distribution Width 21.3 % (11.5-14.5); Red Blood Cell (RBC) Count 2.99 mill/uL (4.20-5.40); White Blood Cell (WBC) Count 6.6 thou/uL (4.8-10.8)
[2017-06-25] MEDS: Levothyroxine Sodium 88 MCG TAB PO SCH (06:05)
[2017-06-25 06:11] LABS: Anion Gap 16 mmol/L (10-20); BUN (Urea Nitrogen) 69 mg/dL (9.8-20.1); Calc. Creatinine Clearance 20 mL/min (70-130); Calcium 8.8 mg/dL (7.8-10.44); Carbon Dioxide 20 mmol/L (23-31); Chloride 104 mmol/L (98-107); Estimated GFR-MDRD 14; Glucose 129 mg/dL (83-110); Potassium 4.5 mmol/L (3.5-5.1); Sodium 135 mmol/L (136-145)
--- NOTE | 2017-06-25 07:40 | PDOC.PN ---
- Subjective Encounter Start Date: 06/25/17 Encounter Start Time: 08:30 Subjective: no complaints this AM, awaiting rehab approval - Objective MAR Reviewed: Yes Vital Signs & Weight: Vital Signs (12 hours) Temp Pulse Resp BP Pulse Ox 06/25/17 04:14 60 16 06/25/17 04:00 54 L 06/25/17 00:00 56 L 20 132/62 96 06/24/17 20:00 97.6 F 58 L 20 150/65 H 97 Weight Admit Weight 167 lb 3.2 oz Weight 183 lb 3.2 oz Most Recent Monitor Data Heart Rate from ECG 80 NIBP 161/59 NIBP BP-Mean 104 Respiration from ECG 13 SpO2 96 I&O: 06/24/17 06/25/17 06/26/17 06:59 06:59 06:59 Intake Total 960 Output Total 925 Balance 35 Result Diagrams: 06/25/17 05:08 06/25/17 05:08 Additional Labs: Accuchecks 06/25/17 06/24/17 06/24/17 06:20 20:54 17:39 POC Glucose 141 H 241 H 196 H 06/24/17 11:59 POC Glucose 172 H Phys Exam - Physical Examination Constitutional: NAD HEENT: moist MMs Respiratory: no wheezing, no rales, no rhonchi Cardiovascular: RRR Gastrointestinal: soft, positive bowel sounds Musculoskeletal: no edema Neurological: non-focal, moves all 4 limbs Psychiatric: normal affect, A&O x 3 Dx/Plan (1) Acute renal failure (ARF) Status: Acute Qualifiers: Acute renal failure type: with acute tubular necrosis Qualified Code(s): N17.0 - Acute kidney failure with tubular necrosis Comment: ATN, creatinine starting to improve (2) Coronary artery disease Code(s): I25.10 - ATHSCL HEART DISEASE OF [place] CORONARY ARTERY W/O ANG PCTRS Status: Acute Qualifiers: Coronary Disease-Associated Artery/Lesion type: [place] artery Comment: S/P CABG (3) Acute on chronic diastolic (congestive) heart failure Code(s): I50.33 - ACUTE ON CHRONIC DIASTOLIC (CONGESTIVE) HEART FAILURE Status : Acute Comment: Diuresed and feeling better. Increasing Coreg (4) Normocytic anemia Code(s): D64.9 - ANEMIA, UNSPECIFIED Status: Acute Comment: Developed since 2017, uncertain eitiology, no renal failure, low iron levels, neg hemoccult. Suspect GI blood loss though not actively. Will need GI w/u as outpatient. (5) Diabetes type 2, controlled Code(s): E11.9 - TYPE 2 DIABETES MELLITUS WITHOUT COMPLICATIONS Status: Chronic (6) Hypertension Code(s): I10 - ESSENTIAL (PRIMARY) HYPERTENSION Status: Chronic (7) Rash Code(s): R21 - RASH AND OTHER NONSPECIFIC SKIN ERUPTION Status: Acute Comment: Possible drug reaction but not sure what to, not on anything likely currently. ?abx after CABG? Observe closely. Patient too hold off on psoriasis injection due to infectious risk with recent CABG. Improving so will hold off on steroids. - Plan cont current plan of care, PT/OT to rehab when approved * . - Discharge Day Encounter end time: 09:00
[2017-06-25] MEDS ORDERED: Furosemide 40 MG/4 ML VIAL SLOW IVP SCH (09:15)
--- NOTE | 2017-06-25 09:30 | PRG ---
DATE OF SERVICE: 06/25/2017 RENAL MEDICINE SUBJECTIVE: Ms. Sung is a 77-year-old female who is status post CABG and being followed up by the Renal Service for acute kidney injury from ischemic ATN. No new complaints today. According to the patient, her breathing is stable. She denies any overt shortness of breath. PHYSICAL EXAMINATION: VITAL SIGNS: Blood pressure is 132/62, heart rate 60, respiratory rate 16, pulse oximetry 96%. GENERAL: Noted to be awake, alert, sitting comfortable, not in distress. SKIN: Adequate turgor. HEENT: Slightly pale conjunctivae, anicteric sclerae. NECK: No neck mass, no carotid bruits, no JVD. CHEST: No deformities. LUNGS: Decreased breath sounds. HEART: Normal sinus rhythm. No murmur, no gallops, no rubs. ABDOMEN: Globular, soft, nontender, no masses. EXTREMITIES: Positive for edema. No deformities. MEDICATIONS: Medications of 06/25/2017 was reviewed. LABORATORY DATA: Laboratories of 06/25/2017; white count 6.6, hemoglobin 8.6. Sodium 135, potassium 4.5, chloride 104, carbon dioxide 20, BUN 69, creatinine 3.16. Calcium 8.8. ASSESSMENT AND PLAN: 1. Acute kidney injury - stable secondary to presumed acute tubular necrosis. No indication for any dialytic intervention. Due to the leg edema and occasional mild shortness of breath with exertion, we will give one time dose of Lasix 40 mg IV. Otherwise continue current management. 2. Borderline anemia. Continue to observe. No indication for any blood transfusion. 3. Status post coronary artery bypass graft, stable, followed up by Surgery and Cardiology. 4. Recheck basic met and CBC in a.m., Lasix 40 mg IV x1 dose.
[2017-06-25] MEDS: Famotidine 20 MG TAB PO SCH (09:42)
[2017-06-25] MEDS: Amlodipine 10 MG TAB PO SCH (09:42)
[2017-06-25] MEDS: Aspirin 325 mg Enteric Coated Tablet PO SCH (09:42)
[2017-06-25] MEDS: Carvedilol 6.25 MG TAB PO SCH ×2 (10:06→19:25)
[2017-06-25] MEDS ORDERED: Insulin Regular 300 UNITS/3 ML VIAL SC PRN (13:29)
[2017-06-25] MEDS ORDERED: Carvedilol 6.25 MG TAB PO SCH (18:30)
--- NOTE | 2017-06-25 21:08 | PDOC.CTH ---
Cardiology Progress Note - Subjective Worked with PT well today. Had a large BM last night and again this morning. - Objective Vital Signs Pulse Resp BP BP BP Pulse Ox 06/25/17 18:35 150/65 H 06/25/17 16:00 58 L 20 142/58 H 96 06/25/17 12:00 56 L 18 144/65 H 96 06/25/17 10:06 150/65 H Admit Weight 167 lb 3.2 oz Weight 183 lb 3.2 oz 06/24/17 06/25/17 06/26/17 06:59 06:59 06:59 Intake Total 960 720 Output Total 925 600 Balance 35 120 - Physical Examination General/Neuro: alert & oriented x3, NAD Neck: no JVD present Lungs: CTA, unlabored respirations Heart: RRR Abdomen: NT/ND Extremities: + edema B (1+) - Telemetry Telemetry Rhythm: NSR - Labs Result Diagrams: 06/25/17 05:08 06/25/17 05:08 Troponin/CKMB CK-MB (CK-2) 1.7 ng/mL (0-6.6) 06/08/17 17:30 Troponin I 0.050 ng/mL (< 0.028) H 06/09/17 02:30 - Assessment/Plan 1. CAD with S/p CABG x4 with LEIVA-LAD, reversed saph-diag, reversed saph-OM, reversed saph-acute margial branch; Stable; on BBlocker, ASA, statin; not on RONALDO due to renal function. 2. Acute renal failure with tubular necrosis. 3. Acute on chronic diastolic HF - improved. 4. HTN. 5. DM type 2. 6. Hyperlipidemia 7. Hypothyroidism PLAN: - Continue current meds. - Increase PT. - Placement at rehab facility.
[2017-06-25] MEDS: Rosuvastatin 10 MG TAB PO SCH (22:25)
[2017-06-25] MEDS: Acetaminophen 325 MG TAB PO PRN (22:26)
[2017-06-26 05:22] LABS: #Eosinphils 0.2 thou/uL (0.0-0.7); #Lymphocytes 0.9 thou/uL (1.20-3.40); #Monocytes 0.5 thou/uL (0.11-0.59); #Neutrophils 4.4 thou/uL (1.40-6.50); %Basophils 0.5 % (0.0-1.0); %Lymphocytes 14.4 % (21.0-51.0); %Monocytes 7.6 % (0.0-10.0); %Neutrophils 73.5 % (42.0-75.0); Hemoglobin 8.4 g/dL (12.0-16.0); Mean Corpuscular HGB CONC 30.8 g/dL (32.0-36.0); Mean Corpuscular Hemoglobin 28.3 pg (27.0-31.0); Mean Corpuscular Volume 91.7 fl (81.0-99.0); Mean Platelet Volume 8.5 fL (7.4-10.4); Platelet Count 114 thou/uL (130-400); RBC Distribution Width 21.5 % (11.5-14.5); Red Blood Cell (RBC) Count 2.96 mill/uL (4.20-5.40)
[2017-06-26 05:38] LABS: Anion Gap 17 mmol/L (10-20); BUN (Urea Nitrogen) 68 mg/dL (9.8-20.1); Calc. Creatinine Clearance 20 mL/min (70-130); Calcium 8.6 mg/dL (7.8-10.44); Carbon Dioxide 21 mmol/L (23-31); Chloride 104 mmol/L (98-107); Estimated GFR-MDRD 14; Glucose 133 mg/dL (83-110); Potassium 4.8 mmol/L (3.5-5.1); Sodium 137 mmol/L (136-145)
[2017-06-26] MEDS: Levothyroxine Sodium 88 MCG TAB PO SCH (06:44)
--- NOTE | 2017-06-26 08:50 | PDOC.PN ---
- Subjective Encounter Start Date: 06/26/17 Encounter Start Time: 08:48 Subjective: Seen and examined with no new complaint - Objective Vital Signs & Weight: Vital Signs (12 hours) Pulse Resp BP Pulse Ox 06/26/17 04:00 56 L 16 137/65 100 06/25/17 23:52 54 L 16 100 Weight Admit Weight 167 lb 3.2 oz Weight 183 lb Most Recent Monitor Data Heart Rate from ECG 80 NIBP 161/59 NIBP BP-Mean 104 Respiration from ECG 13 SpO2 96 I&O: 06/25/17 06/26/17 06/27/17 06:59 06:59 06:59 Intake Total 720 Output Total 600 Balance 120 Result Diagrams: 06/26/17 04:56 06/26/17 04:56 Additional Labs: Accuchecks 06/26/17 06/25/17 06/25/17 05:44 20:51 11:42 POC Glucose 148 H 181 H 166 H Phys Exam - Physical Examination Constitutional: NAD HEENT: PERRLA, moist MMs, sclera anicteric, TM's clear Neck: no nodes, no JVD, supple, full ROM Respiratory: no wheezing, no rales, no rhonchi, clear to auscultation bilateral Cardiovascular: RRR, no significant murmur, no rub Gastrointestinal: soft, non-tender, no distention, positive bowel sounds Musculoskeletal: no edema, pulses present Dx/Plan (1) Acute on chronic diastolic (congestive) heart failure Code(s): I50.33 - ACUTE ON CHRONIC DIASTOLIC (CONGESTIVE) HEART FAILURE Status : Acute Comment: Diuresed and feeling better. Increasing Coreg (2) Acute renal failure (ARF) Status: Acute Qualifiers: Acute renal failure type: with acute tubular necrosis Qualified Code(s): N17.0 - Acute kidney failure with tubular necrosis Comment: ATN, creatinine starting to improve (3) Coronary artery disease Code(s): I25.10 - ATHSCL HEART DISEASE OF [place] CORONARY ARTERY W/O ANG PCTRS Status: Acute Qualifiers: Coronary Disease-Associated Artery/Lesion type: [place] artery Comment: S/P CABG (4) NSTEMI (non-ST elevated myocardial infarction) Code(s): I21.4 - NON-ST ELEVATION (NSTEMI) MYOCARDIAL INFARCTION Status: Acute (5) Normocytic anemia Code(s): D64.9 - ANEMIA, UNSPECIFIED Status: Acute Comment: Developed since 2017, uncertain eitiology, no renal failure, low iron levels, neg hemoccult. Suspect GI blood loss though not actively. Will need GI w/u as outpatient. (6) S/P CABG (coronary artery bypass graft) Code(s): Z95.1 - PRESENCE OF AORTOCORONARY BYPASS GRAFT Status: Acute (7) Chronic anemia Code(s): D64.9 - ANEMIA, UNSPECIFIED Status: Chronic Comment: yamil DICKSON.s/ p IV iron (8) Moderate aortic stenosis Code(s): I35.0 - NONRHEUMATIC AORTIC (VALVE) STENOSIS Status: Chronic - Plan plan discussed w/ family, PT/OT, social worker psychiatric, respiratory therapy Awaiting SNF placement as insurance denied Rehab placement * .
[2017-06-26] MEDS: Carvedilol 6.25 MG TAB PO SCH ×2 (09:14→16:29)
[2017-06-26] MEDS: Famotidine 20 MG TAB PO SCH (09:15)
[2017-06-26] MEDS: Aspirin 325 mg Enteric Coated Tablet PO SCH (09:15)
[2017-06-26] MEDS: Amlodipine 10 MG TAB PO SCH (09:15)
[2017-06-26] MEDS ORDERED: Furosemide 40 MG/4 ML VIAL SLOW IVP SCH (09:45)
--- NOTE | 2017-06-26 09:55 | PRG ---
DATE OF SERVICE: 06/26/2017 RENAL MEDICINE SUBJECTIVE: Ms. Sung is a 77-year-old female who underwent CABG and was seen by Renal Serv ice for her acute kidney injury. The acute kidney injury is secondary to acute tubular necrosis. Co ntinue supportive care. Renal function is stable for the last several days. She received a one-time dose of Lasix yesterday due to increased leg edema. This morning, she feels tired. No worsening of shortness of breath. PHYSICAL EXAMINATION: VITAL SIGNS: Blood pressure 150/65, heart rate 62, respiratory rate 18, temperature 98, pulse ox is 94%. GENERAL: Awake, sitting comfortable, not in overt distress. SKIN: Adequate turgor. HEENT: She has slightly pale conjunctivae, anicteric sclerae. NECK: No neck mass, no carotid bruits, no JVD. CHEST: No deformities. LUNGS: Decreased breath sounds. HEART: Normal sinus rhythm. No murmur, no gallops, no rubs. ABDOMEN: Globular, soft. EXTREMITIES: Positive edema. MEDICATIONS: Medications of 06/26/2017 was reviewed. LABORATORY DATA: Laboratories of 06/26/2017; white count 6, hemoglobin 8.4, sodium 137, potassium 4. 8, chloride 104, carbon dioxide 21, BUN 68, creatinine 3.12, GFR 14 mL/minute, glucose 133, calcium 8 .6. ASSESSMENT AND PLAN: 1. Acute kidney injury - secondary to acute tubular necrosis, supportive care. No indication for an y dialytic intervention. Renal function is plateauing at value of 3.1. Continue current management. We will give one time dose of Lasix and 40 mg IV daily for leg edema. 2. Leg edema - Lasix 40 mg IV x1 dose. 3. Status post coronary artery bypass graft, stable. Continue supportive care. Surgery and Cardiol ogy is following.
--- NOTE | 2017-06-26 15:29 | PDOC.CTH ---
Cardiology Progress Note - Subjective Continues to work with PT. - Objective Vital Signs Temp Pulse Resp BP BP BP Pulse Ox 06/26/17 11:21 96.7 F L 58 L 16 142/64 H 95 06/26/17 11:05 97.4 F L 60 18 147/62 H 97 06/26/17 09:15 62 06/26/17 09:14 150/65 H 06/26/17 09:11 96.7 F L 58 L 16 161/68 H 94 L 06/26/17 04:00 56 L 16 137/65 100 Admit Weight 167 lb 3.2 oz Weight 183 lb 06/25/17 06/26/17 06/27/17 06:59 06:59 06:59 Intake Total 720 Output Total 600 Balance 120 - Physical Examination General/Neuro: alert & oriented x3, NAD Neck: no JVD present Lungs: CTA, unlabored respirations Heart: RRR Abdomen: NT/ND Extremities: + edema B (3+) - Telemetry Telemetry Rhythm: NSR - Labs Result Diagrams: 06/26/17 04:56 06/26/17 04:56 Troponin/CKMB CK-MB (CK-2) 1.7 ng/mL (0-6.6) 06/08/17 17:30 Troponin I 0.050 ng/mL (< 0.028) H 06/09/17 02:30 - Assessment/Plan 1. CAD with S/p CABG x4 with LEIVA-LAD, reversed saph-diag, reversed saph-OM, reversed saph-acute margial branch; Stable; on BBlocker, ASA, statin; not on RONALDO due to renal function. 2. Acute renal failure with tubular necrosis. 3. Acute on chronic diastolic HF - improved. 4. HTN. 5. DM type 2. 6. Hyperlipidemia 7. Hypothyroidism PLAN: - Continue current meds. - Increase PT. - Would give one more dose of IV lasix today on top of morning IV dose. - Placement.
--- NOTE | 2017-06-26 15:35 | RAD ---
FRONTAL VIEW CHEST: Comparison: 06-15-17 Indication: Shortness of breath. FINDINGS: There is bibasilar density present. Cardiac silhouette and pulmonary vasculature are prominent. There is re-demonstration of right sided subclavian venous catheter. Bilateral pleural fluid is seen. Post sternotomy change and vascular calcification is present. No discrete pneumothorax is visualized. IMPRESSION: 1. Bilateral pleural and parenchymal densities at the lower lung zones indicating pleural fluid and a djacent atelectasis and/or pneumonia. Findings are greater on the left. 2. Evidence of CHF. 3. Recommend continued follow up. POS: [facility]
[2017-06-26 16:34] VITALS: BP 157/65; TEMP 97.4
--- NOTE | 2017-06-29 13:09 | DIS ---
For details of the history and physical, consultative notes, and procedure notes, please refer to dic tations on record. SUMMARY: This is a 77-year-old female patient who presented here with progressively worsening shortn ess of breath of about 4 months' duration. The patient initially on admission was diagnosed with acu te on chronic congestive heart failure, responded well to diuresis. However, the patient was seen by Cardiology and did undergo cardiac catheterization that revealed left main disease and other 3-vesse l disease. As a result, cardiothoracic service was requested. The patient then did undergo successf ul bypass surgery. Of note, the patient developed acute kidney injury for which renal was consulted during this hospitalization. Having maintained sustained clinical improvement, the patient was event ually discharged on the following medications: Humira 40 mg subcutaneously every 14 days, Proventil, Norvasc 5 mg p.o. daily, aspirin 81 mg p.o. daily, Coreg 6.25 mg p.o. b.i.d., Pepcid 20 mg p.o. vishal y, ferrous sulfate 325 mg p.o. daily, furosemide 40 mg p.o. daily, Synthroid 88 mcg p.o. daily, potas sium 10 mEq p.o. b.i.d., Crestor 10 mg p.o. at bedtime, Januvia 50 mg p.o. b.i.d. DISCHARGE INSTRUCTIONS: 1. Follow up with primary care physician. 2. Follow up with Cardiology. 3. Follow up with Nephrology. 4. Re-present here in case of any relapse or deterioration in clinical condition. Total time spent including [id number] encounter with this patient totaled 32 minutes.
== END 2017-06-26 19:10 | disposition swing bed (61) | DRG 233 ==
LOC: SCSER 15:45 → 2SE 19:26 → CCU 06-12 07:17 → 2NO 06-17 21:28
PROVIDERS: ADMIT Internal Medicine Addiction Medicine; ATTEND Internal Medicine Addiction Medicine
PROC: 4A023N7 Measurement of Cardiac Sampling and Pressure, Left Heart, Percutaneous Approach (ICD-10-PCS; 2017-06-11)
PROC: B2111ZZ Fluoroscopy of Multiple Coronary Arteries using Low Osmolar Contrast (ICD-10-PCS; 2017-06-11)
PROC: B2151ZZ Fluoroscopy of Left Heart using Low Osmolar Contrast (ICD-10-PCS; 2017-06-11)
PROC: 02100Z9 Bypass Coronary Artery, One Artery from Left Internal Mammary, Open Approach (ICD-10-PCS; principal; 2017-06-12)
PROC: 021209W Bypass Coronary Artery, Three Arteries from Aorta with Autologous Venous Tissue, Open Approach (ICD-10-PCS; 2017-06-12)
PROC: 06BQ4ZZ Excision of Left Saphenous Vein, Percutaneous Endoscopic Approach (ICD-10-PCS; 2017-06-12)
PROC: 5A1221Z Performance of Cardiac Output, Continuous (ICD-10-PCS; 2017-06-12)
PROC: B24BZZ4 Ultrasonography of Heart with Aorta, Transesophageal (ICD-10-PCS; 2017-06-12)
DX: I21.4 Non-ST elevation (NSTEMI) myocardial infarction (principal); N17.0 Acute kidney failure with tubular necrosis; I50.33 Acute on chronic diastolic (congestive) heart failure; E11.9 Type 2 diabetes mellitus without complications; D50.9 Iron deficiency anemia, unspecified; E03.9 Hypothyroidism, unspecified; I16.1 Hypertensive emergency; I11.0 Hypertensive heart disease with heart failure; E78.5 Hyperlipidemia, unspecified; I35.0 Nonrheumatic aortic (valve) stenosis; Z79.84 Long term (current) use of oral hypoglycemic drugs; R21 Rash and other nonspecific skin eruption; I25.10 Atherosclerotic heart disease of native coronary artery without angina pectoris
CPT/HCPCS: 36415; 36416; 36430; 71010; 71045; 76770; 76942; 80048; 80053; 80061; 81003; 81015; 82274; 82553; 82728; 82805; 83540; 83550; 83880; 84484; 85025; 85610; 85730; 86850; 86900; 86901; 90471; 90682; 93005; 93010; 93306; 93458; 93798; 94002; 94003; 94640; 94760; 96374; 99152; 99153; A4216; C1751; C1769; G0008; G8978-GP-CL; G8979-GP-CJ; G8987-GO-CL; G8988-GO-CJ; J0360; J1265; J1642; J1644; J1650; J1750; J1815; J1940; J2001; J2150; J2250; J2270; J2405; J2440; J2704; J2720; J2930; J3010; J3370; J3475; J3480; J7050; J7611; J7620; J7644; P9016; P9035; P9045; P9047; P9059; Q2036; S0017; S0028

== ENCOUNTER 2017-07-01 17:01 | Inpatient (IN) | payer MEDICARE ==
[2017-07-01 18:11] LABS: CO2 Tension 51.1 mmHg (35.0-45.0); pH, Arterial 7.31 (7.35-7.45)
[2017-07-01 18:12] LABS: Actual Bicarbonate (HCO3a) 25.4 mEq/L (22-26); Analyzer IN Cardio ER; Base Excess (BEa) -0.9 mEq/L (0 (+/-) 2.5); Calcium, Ionized 1.1 mmol/L (1.12-1.30); Hematocrit-ABG 26.6 % (36.0-47.0); Hemoglobin (Hb) 7.7 g/dL (12.0-16.0); O2 Tension (PaO2) 113.5 mmHg (80.0-100.0)
[2017-07-01 18:13] LABS: ALV-art Gradient 20.865 (0-20); Puncture Site RRA
[2017-07-01 18:16] LABS: #Basophils 0.1 thou/uL (0.0-0.2); #Eosinphils 0.2 thou/uL (0.0-0.7); #Lymphocytes 0.8 thou/uL (1.20-3.40); #Monocytes 0.3 thou/uL (0.11-0.59); #Neutrophils 2.8 thou/uL (1.40-6.50); %Basophils 1.8 % (0.0-1.0); %Eosinophils 5.4 % (0.0-10.0); %Lymphocytes 18.4 % (21.0-51.0); %Monocytes 7.4 % (0.0-10.0); Hemoglobin 8.3 g/dL (12.0-16.0); Mean Corpuscular HGB CONC 29.9 g/dL (32.0-36.0); Mean Corpuscular Hemoglobin 28.4 pg (27.0-31.0); Mean Corpuscular Volume 94.9 fl (81.0-99.0); Mean Platelet Volume 9.1 fL (7.4-10.4); Platelet Count 81 thou/uL (130-400); RBC Distribution Width 21.1 % (11.5-14.5); Red Blood Cell (RBC) Count 2.93 mill/uL (4.20-5.40); White Blood Cell (WBC) Count 4.2 thou/uL (4.8-10.8)
[2017-07-01 18:30] LABS: Bilirubin Negative (Negative); Blood, Urine Negative (Negative); Clarity Cloudy (Clear); Glucose, Urine (Dipstick) Negative (Negative); Leukocyte Negative (Negative); Nitrite Negative (Negative); Protein, Urine (Dipstick) > or equal to 300 mg/dL (Neg-Trace); Specific Gravity, Urine 1.025 (1.005-1.030); Urobilinogen 0.2 mg/dL (0.2-1.0)
[2017-07-01 18:31] LABS: ALT (SGPT) 13 U/L (8-55); AST (SGOT) 22 U/L (5-34); Albumin 3.4 g/dL (3.4-4.8); Alkaline Phosphatase 73 U/L (40-150); Anion Gap 15 mmol/L (10-20); BUN (Urea Nitrogen) 78 mg/dL (9.8-20.1); Bilirubin, Total 0.9 mg/dL (0.2-1.2); Calc. Creatinine Clearance 0 mL/min (70-130); Calcium 8.7 mg/dL (7.8-10.44); Carbon Dioxide 23 mmol/L (23-31); Chloride 105 mmol/L (98-107); Estimated GFR-MDRD 13; Globulin 3.1 g/dL (2.4-3.5); Glucose 112 mg/dL (83-110); Protein, Total 6.5 g/dL (6.0-8.3); Sodium 137 mmol/L (136-145)
[2017-07-01 18:40] LABS: Anisocytosis MODERATE=16-30 cells (100X) (0-5/hpf); MDiff Complete? YES; Ovalocytes SLIGHT = 2-5 cells (100X) (0-1/hpf); PLT Morphology Comment Appears Decreased; Polychromasia SLIGHT = 2-3 cells (100X) (0-2/hpf); Target Cells SLIGHT = 2-5 cells (100X) (0-1/hpf)
[2017-07-01 18:42] LABS: CKMB 2.7 ng/mL (0-6.6); Troponin I 0.064 ng/mL (< 0.028)
[2017-07-01 18:42] LABS: Bacteria/HPF None Seen HPF (None Seen); Hyaline Casts/LPF 7-10 HYALINE CAST LPF (0-3 Hyaline); Pathc Cast-AUWi Flag 1.08 (0-2.49); Squamous Epithelial 0-3 HPF (0-3); WBC/HPF 0-3 HPF (0-3)
--- NOTE | 2017-07-01 18:42 | RAD ---
PORTABLE CHEST ONE VIEW: Date: 07-01-17 Time: 6:03 p.m. History: Altered mental status. Status post CABG on 06-12-17. FINDINGS/IMPRESSION: Comparison made with exam of 07-01-16 at 11:13 a.m. Changes of median sternotomy are again seen. The heart size is enlarged. There is pulmonary vascular congestion and accompanying effusions. There is consolidation/atelectatic change in the left lung bas e. Findings are suspicious for CHF. POS: [facility]
[2017-07-01] MEDS ORDERED: Calcium Chloride 1 GM/10 ML Abboject SYRINGE ONE (18:44)
[2017-07-01] MEDS ORDERED: Sodium Bicarb 50 MEQ/50 ML Abboject 8.4% SYRINGE ONE (18:44)
[2017-07-01] MEDS ORDERED: Dextrose 50% Abboject 50 ML SYRINGE ONE (18:44)
[2017-07-01] MEDS ORDERED: Insulin Regular 300 UNITS/3 ML VIAL ONE (18:44)
[2017-07-01] MEDS ORDERED: Propofol 500 MG/50 ML VIAL ONE (19:25)
[2017-07-01] MEDS ORDERED: Vecuronium 10 MG VIAL ONE (19:39)
[2017-07-01 19:57] LABS: CO2 Tension 43.7 mmHg (35.0-45.0); O2 Tension (PaO2) 158.5 mmHg (80.0-100.0); pH, Arterial 7.38 (7.35-7.45)
[2017-07-01 19:58] LABS: Actual Bicarbonate (HCO3a) 24.3 mEq/L (22-26); Base Excess (BEa) -1.1 mEq/L (0 (+/-) 2.5); Hematocrit-ABG 24.2 % (36.0-47.0); Hemoglobin (Hb) 7.2 g/dL (12.0-16.0)
[2017-07-01 19:59] LABS: Analyzer IN Cardio ER; Calcium, Ionized 1.2 mmol/L (1.12-1.30); Puncture Site RRA
[2017-07-01 20:02] LABS: ALV-art Gradient 140.875 (0-20)
--- NOTE | 2017-07-01 20:20 | RAD ---
PORTABLE CHEST ONE VIEW: Date: 07-01-17 Time: 7:39 p.m. History: Respiratory failure. FINDINGS/IMPRESSION: Comparison is made with earlier exam at 6:03 p.m. from the same date. There has been interval placement of an endotracheal tube with tip at the level of the clavicular hea ds. A nasogastric tube can be traced into the stomach. There is a right subclavian central line with tip in the direction of the cavoatrial junction. The heart size is enlarged. There is left lower lobe consolidation and bilateral pleural effusions. There is pulmonary vascular congestion. No pneumothor aces are seen. POS: [facility]
[2017-07-01] MEDS ORDERED: Bisacodyl 5 MG TAB PO PRN (20:27)
[2017-07-01] MEDS ORDERED: Acetaminophen 325 MG TAB PO PRN (20:27)
[2017-07-01] MEDS ORDERED: Acetaminophen 650 MG Suppository PR PRN (20:27)
[2017-07-01] MEDS ORDERED: Bisacodyl 10 MG SUPP PR PRN (20:27)
[2017-07-01 20:29] LABS: Amphetamine Not Detected (NotDetected); Barbiturates Screen Not Detected (NotDetected); Benzodiazepine Screen Not Detected (NotDetected); Cocaine Metabolite Screen Not Detected (NotDetected); Medtox Control Line Valid? VALID (VALID); Medtox Reader # READER 4; Methadone Not Detected (NotDetected); Methamphetamine Not Detected (NotDetected); Opiate Screen Not Detected (NotDetected); Oxycodone Screen Not Detected (NotDetected); Phencyclidine (PCP) Not Detected (NotDetected); THC/Cannabinoid Screen Not Detected (NotDetected); Tricyclic Screen Not Detected (NotDetected)
[2017-07-01] MEDS ORDERED: Norepinephrine 8 MG/0.9% NS 250 ML IVPB PRN (20:31)
[2017-07-01] MEDS ORDERED: HumaLOG 300 UNITS/3 ML VIAL SC PRN (20:52)
[2017-07-01] MEDS ORDERED: Dextrose 50% Abboject 50 ML SYRINGE SLOW IVP PRN (20:52)
[2017-07-01] MEDS ORDERED: Dextrose 5% in Water 1,000 ML IV PRN (20:52)
[2017-07-01 21:25] LABS: Troponin I 0.065 ng/mL (< 0.028)
[2017-07-01] MEDS ORDERED: Morphine 2 MG/ML SYRINGE SLOW IVP PRN (21:43)
[2017-07-01] MEDS ORDERED: Propofol 1,000 MG/100 ML VIAL IV PRN (21:43)
[2017-07-01] MEDS ORDERED: fentaNYL Citrate/PF 2,000 MCG in Sodium Chloride 0.9% 60 ML IV SCH (21:43)
[2017-07-01] MEDS ORDERED: Lorazepam 2 MG/ML VIAL SLOW IVP PRN (21:43)
[2017-07-01] MEDS ORDERED: DISCONTINUE PREVIOUS NARCOTIC PAIN MEDICATIONS AND BENZODIAZEPINES FS SCH (21:43)
--- NOTE | 2017-07-01 21:46 | HP ---
PRIMARY CARE PHYSICIAN: Diallo Bauer M.D. CHIEF COMPLAINT: Lethargy. HISTORY OF PRESENT ILLNESS: Ms. Sung is a 77-year-old lady, who was seen at [facility] on 07/01/2017. She was hospitalized at this facility from 06/09/2017 to 06/26/2017. Duri ng that hospitalization, she was diagnosed with non-ST elevation myocardial infarction and underwent 4-vessel coronary artery bypass graft. She also developed acute renal failure due to acute tubular n ecrosis. She was transferred to [place] for inpatient rehabilitation. She is currently intubated and mechanically ventilated, unable to provide any history. History was o btained from her son and daughter by the bedside, discussion with the emergency room physician and re view of old medical records as well as current medical records. She was reportedly lethargic over the last few days, progressively worsening. She was unable to part icipate in rehabilitation activities. She has also not been eating much over the last couple of days . She was therefore sent to the emergency room for lethargy. In the emergency room, she continued t o be lethargic. She was intubated for airway protection and referred to the Hospitalist Service. REVIEW OF SYSTEMS: Could not be completed because of patient's intubated status. PAST MEDICAL HISTORY: Significant for coronary artery disease, status post percutaneous transluminal coronary angioplasty, status post coronary artery bypass graft; hypertension; diabetes mellitus, typ e 2; psoriasis; degenerative joint disease; cardiac arrhythmia; congestive heart failure, diastolic; and renal failure. PAST SURGICAL HISTORY: Significant for coronary artery bypass graft, right ankle surgery, hysterecto my, cardiac ablation and coronary angioplasty in the past. ALLERGIES: NAPROXEN, HYDROCODONE. FAMILY HISTORY: No family history of premature coronary artery disease. CURRENT MEDICATIONS: These need to be clarified. SOCIAL HISTORY: No history of tobacco use, alcohol use or recreational drug use. CODE STATUS: I discussed her code status. She is FULL CODE. PHYSICAL EXAMINATION: GENERAL: On examination, Ms. Sung is intubated and mechanically ventilated. VITAL SIGNS: Blood pressure is 139/56, pulse is 83. She is breathing at rate of 14 and saturating 1 00% on ventilator. CritiCore temperature is 94.1 degrees Fahrenheit. EYES: No scleral icterus. No conjunctival pallor. Pupils are equal and reactive to light. ENT: Endotracheal tube present. NECK: No cervical lymphadenopathy, trachea midline, no thyromegaly. RESPIRATORY: Accessory muscles of breathing are not active. Chest wall movements are symmetric bila terally. Lungs examination reveals bibasilar crackles. CARDIOVASCULAR: S1 and S2 are heard, regular. Peripheral pulses are palpable. No carotid bruit, no pericardial rub. ABDOMEN: Soft, nontender, bowel sounds heard, no hepatomegaly, no splenomegaly. NEUROLOGIC: Full neurologic examination not possible secondary to the patient's intubated status. N o facial droop. Deep tendon reflexes are 2+. MUSCULOSKELETAL: Normal passive range of movement at both knees. SKIN: Bilateral lower extremity edema. No rashes or subcutaneous nodules. PSYCHIATRIC: Unable to assess mood, affect, or orientation to person, place or time. LYMPHATIC: No cervical lymphadenopathy. LABORATORY DATA AND IMAGING: Ms. Sung's labs and investigations were reviewed. I reviewed her elec trocardiogram, which shows wide QRS rhythm, no distinct P waves, QRS complexes of low voltage. I als o reviewed her chest x-ray, which shows interstitial edema. Laboratory investigations show pancytope iglesia with white count of 4200, hemoglobin 8.3 and platelet count of 81,000. Last known values for the se parameters are: White count of 5500 on 06/29/2017, hemoglobin of 7.8 on 06/29/2017 and platelet c ount of 78,000 on 06/29/2017. She has normal sodium, elevated potassium of 6.0, elevated blood urea nitrogen of 78, elevated creatinine of 3.41. Her last known creatinine was 3.25 on 06/30/2017. She had an unremarkable liver profile and elevated BNP level of 1270. Troponin I is indeterminate at 0.0 64. Arterial blood gases show pH of 7.31, pCO2 of 51 and pO2 of 113. Urinalysis is negative for nit rite and leukocyte esterase. Urine toxicology screen is normal. ASSESSMENT AND PLAN: Ms. Sung is a 77-year-old lady who was seen at [facility] on 07/01[facility]2017. Her problem list includes: 1. Acute respiratory failure: The patient has hypercapnic respiratory failure. She is currently in tubated and mechanically ventilated. Most likely cause of acute respiratory failure is congestive he art failure exacerbation. The patient will be admitted to the Critical Care Unit for further managem ent, including diuretics. We will also obtain 2D echocardiogram to rule out pericardial effusion. S he is maintaining good blood pressure at this time. 2. Hyperkalemia: The patient has received treatments for decreasing potassium. Potassium level robbie l be rechecked. 3. Encephalopathy: The patient presented with altered mental status. She is currently awaiting CT scan of the head to rule out intracranial causes such as hemorrhage. Alternatively, encephalopathy c ould be secondary to other causes including congestive heart failure exacerbation. 4. Congestive heart failure exacerbation: The patient has a history of diastolic heart failure. Sh e will be treated with intravenous diuretics. We will consult Cardiology Service. 5. Diabetes mellitus, type 2: We will start Accu-Cheks and insulin sliding scale. 6. Hypertension: Monitor vital signs, titrate antihypertensives as needed. Many thanks for allowing me to participate in your patient's care. Please feel free to contact me wi th any questions or concerns. LEVEL OF RISK: High. LEVEL OF COMPLEXITY: High.
--- NOTE | 2017-07-01 22:16 | CT ---
CT BRAIN WITHOUT CONTRAST: History: Altered mental status. FINDINGS: Comparison made with exam of 10-28-16. There are changes of chronic small ischemic disease in the periventricular white matter. No evidence of infarct, hemorrhage, midline shift, or abnormal extraaxial fluid collections are seen. The basilar cisterns are patent. The bony calvarium is intact. The visualized paranasal sinuses and mastoid air cells are well aerated. IMPRESSION: No CT evidence of acute intracranial process. POS: [facility]
[2017-07-02 00:11] LABS: Troponin I 0.066 ng/mL (< 0.028)
--- NOTE | 2017-07-02 02:57 | CON ---
DATE OF CONSULTATION: 07/01/2017 Forty minutes critical care time, not including 30 minutes spent with family discussing patient's con dition. HISTORY OF PRESENT ILLNESS: This is a 77-year-old female who is currently intubated on mechanical ve ntilation and unable to give a history for herself. What I have was obtained from speaking with the emergency room physician, the internists, and from reviewing the patient's chart. The patient had a coronary artery bypass grafting surgery performed several weeks ago at this facility. She has had a difficult time recovering since that admission. She is currently in rehabilitation therapy at the [facility]. Last night, she took a dose of tramadol for pain. Today, she has been increasin gly lethargic and disoriented. She was intubated for mental status changes. She has been noted to h ave an elevated BUN and creatinine, but that has been problematic for the last week or two after her surgery. PAST MEDICAL HISTORY: 1. Hyperlipidemia. 2. Coronary artery disease. 3. Hypothyroidism. 4. Diabetes mellitus. 5. Hypertension. PAST SURGICAL HISTORY: 1. Coronary artery bypass grafting surgery. 2. Cardiac ablation. 3. Right ankle surgery. 4. Hysterectomy. SOCIAL HISTORY: She is , lives with her . She has several children. Her daughter is at the bedside. She has no history of smoking, alcohol intake, or IV drug use. FAMILY MEDICAL HISTORY: Unremarkable for chronic pulmonary disease. ALLERGIES: NAPROSYN. MEDICATIONS: Prior to admission Crestor, Synthroid, DuoNeb, Pepcid, Coreg, Ecotrin, Norvasc, Provent il HFA, and Humira. REVIEW OF SYSTEMS: Twelve-point review of systems cannot be obtained as the patient is intubated and on mechanical ventilation. PHYSICAL EXAMINATION: VITAL SIGNS: Pulse is 56, blood pressure running around 130/70, respiratory rate 18. GENERAL: Patient is currently intubated and sedated on mechanical ventilation. She was given vecuro nium and etomidate for the intubation. HEENT: Pupils react. Sclerae somewhat edematous. Oropharynx is dry with peeling around the lips. SKIN: Has generalized peeling, which is very superficial, does not involve the dermis. NECK: Supple without adenopathy or JVD. LUNGS: Clear without wheezing or rhonchi. CARDIAC: S1 and S2 regular, 2/6 systolic murmur. ABDOMEN: Soft, nontender, nondistended. EXTREMITIES: There is no cyanosis or edema. NEUROLOGIC: Could not be assessed due to the patient's current paralyzed state from the intubation. LABORATORY DATA: ABG pre-intubation pH 7.31, pCO2 of 51, pO2 of 113 and that was on 2 liters nasal c annula. Post-intubation pH 7.38, pCO2 of 43, pO2 of 158. Potassium last checked in 1946 was 5.0. S he is currently on SIMV rate 14, tidal volume 450, PEEP 5, pressure support 10, FiO2 of 50%. White b lood cell count 4.2, hematocrit 27.8, platelet count 81. Sodium 137, potassium initially 6 now 5.0, chloride 105, CO2 of 23, BUN 78, creatinine 3.4, glucose 112. BNP is 1270. CT of the head is pendin g. Chest x-ray showed cardiomegaly, small left pleural effusion, generalized edema in the bases. EK G shows low voltage, no ST-T wave acute changes. ASSESSMENT: 1. Acute respiratory failure, not sure of the etiology. Could be related to congestive heart failur e. 2. Altered mental status - I doubt this is explained by the tramadol, although she took last night. According to the family that the patient has had slurred speech since after surgery and had intermit tent problems with mental status. 3. Hyperkalemia related to renal insufficiency. 4. Elevated BNP. RECOMMENDATION: 1. Discussed with Dr. Foley, a head CT has been ordered. 2. Patient will be left on mechanical ventilation overnight. 3. The patient is going to be gently diuresed norepinephrine may be needed for blood pressure suppor t. 4. It does not appear that she is infected. If situation worsens, may have to consider adding empir ic antibiotics, but I would agree and I would hold off that for now. 5. Check echocardiogram to rule out any significant pericardial effusion, which I would not think wo uld be problematic post-surgery given that the pericardium was recently invaded.
[2017-07-02 05:08] LABS: #Basophils 0.1 thou/uL (0.0-0.2); #Eosinphils 0.3 thou/uL (0.0-0.7); #Lymphocytes 1.4 thou/uL (1.20-3.40); #Monocytes 0.7 thou/uL (0.11-0.59); #Neutrophils 4.8 thou/uL (1.40-6.50); %Eosinophils 3.5 % (0.0-10.0); %Lymphocytes 19.7 % (21.0-51.0); %Monocytes 9.3 % (0.0-10.0); %Neutrophils 66.5 % (42.0-75.0); Hemoglobin 8.4 g/dL (12.0-16.0); Mean Corpuscular HGB CONC 30.5 g/dL (32.0-36.0); Mean Corpuscular Hemoglobin 28.2 pg (27.0-31.0); Mean Corpuscular Volume 92.6 fl (81.0-99.0); Platelet Count 104 thou/uL (130-400); RBC Distribution Width 21.8 % (11.5-14.5); Red Blood Cell (RBC) Count 2.96 mill/uL (4.20-5.40); White Blood Cell (WBC) Count 7.3 thou/uL (4.8-10.8)
[2017-07-02 05:25] LABS: Anion Gap 15 mmol/L (10-20); BUN (Urea Nitrogen) 76 mg/dL (9.8-20.1); Calc. Creatinine Clearance 20 mL/min (70-130); Calcium 9.2 mg/dL (7.8-10.44); Carbon Dioxide 24 mmol/L (23-31); Chloride 107 mmol/L (98-107); Estimated GFR-MDRD 14; Glucose 71 mg/dL (83-110); Potassium 5.4 mmol/L (3.5-5.1); Sodium 141 mmol/L (136-145)
[2017-07-02] MEDS ORDERED: Furosemide 20 MG/2 ML VIAL SLOW IVP SCH (06:00)
[2017-07-02 07:45] LABS: Actual Bicarbonate (HCO3a) 24.2 mEq/L (22-26); Base Excess (BEa) -0.1 mEq/L (0 (+/-) 2.5); CO2 Tension 37.9 mmHg (35.0-45.0); Hematocrit-ABG 26.1 % (36.0-47.0); Hemoglobin (Hb) 7.7 g/dL (12.0-16.0); O2 Tension (PaO2) 83.3 mmHg (80.0-100.0); pH, Arterial 7.42 (7.35-7.45)
[2017-07-02] MEDS ORDERED: Cefepime 1 GM in Sodium Chloride 0.9% 100 ML IVPB SCH (08:00)
--- NOTE | 2017-07-02 08:15 | PRG ---
DATE OF SERVICE: 07/02/2017 Thirty minutes critical care time. The patient remains intubated on mechanical ventilation, sedation has not been started. She will bit e down on the endotracheal tube at times, but will not wake up and follow commands specifically. Her head CT was negative and her tox screen was negative. PHYSICAL EXAMINATION: VITAL SIGNS: On exam her temperature is 98.8 with a T-max of 100.0, pulse is 61, blood pressure 137/ 37, 24 hour intake not quantitated yet, output 405. NEURO: Neurologically, she will wince to pain, but will not follow any commands for me. HEENT: Pupils react. Sclerae are anicteric. Oropharynx, endotracheal tube and orogastric tube in p lace. NECK: No JVD. LUNGS: Clear. CARDIOVASCULAR: S1, S2 regular, without murmur. ABDOMEN: Soft and nontender. EXTREMITIES: No edema. LABORATORY DATA: ABG -- pH 7.42, pCO2 37, pO2 83. SIMV rate 14, tidal volume 450, PEEP 5, pressure support 10, FIO2 40%. White blood cell count 7.3, hemoglobin 8.4, hematocrit 27.4, platelet count 10 4. Sodium 141, potassium 5.4, chloride 107, CO2 24, BUN 76, creatinine 3.2, glucose 71, troponin 0.0 6. ASSESSMENT: 1. Encephalopathy - etiology undetermined, it is conceivable that she could have an infection, altho ugh it is not indicative by white blood cell count. Low grade fever is noted. 2. Acute respiratory failure requiring mechanical ventilation. 3. Hyperkalemia and renal insufficiency. 4. Elevated BNP. PLAN: 1. Echoes is to be checked today. 2. Consult Neurology and check EEG. 3. Continue mechanical ventilation at current settings and initiate enteral tube feedings. 4. Culture can start antibiotics empirically.
[2017-07-02 08:30] LABS: ALV-art Gradient 150.525 (0-20); Puncture Site LRA
[2017-07-02] MEDS ORDERED: Cefepime 1 GM, Admixture Fee 1 EACH in Sterile Water 10 ML SLOW IVP SCH (08:30)
--- NOTE | 2017-07-02 09:59 | PRG ---
DATE OF SERVICE: 07/01/2017 SUBJECTIVE: Ms. Sung is a 77-year-old female who was seen by the Renal Service during her last hospitalization due to acute kidney injury secondary to acute tubular necrosis. Renal function is remaining stable. She was transferred to [facility]. She has been doing well until one day p rior to admission and her mentation was dramatically changed. She was also noted to be hyperkalemic at that time. At the ER, she was noted to be in acute respiratory failure and was intubated. In add ition, potassium was noted at 6.2. She was given sodium bicarbonate, calcium gluconate and Kayexalat e. This morning, potassium is better. Her renal function also continues to remain stable. REVIEW OF SYSTEMS: Not obtainable since the patient is intubated and ventilator support. PAST MEDICAL HISTORY: Includes the following; 1. Coronary artery disease. 2. Recent acute kidney injury secondary to acute tubular necrosis. 3. The patient also has a history of hypothyroidism? 4. Type 2 diabetes mellitus. 5. Hypertension. 6. Hyperlipidemia. PAST SURGICAL HISTORY: 1. Status post CABG. 2. Status post cardiac catheterization. 3. Status post cardiac ablation. 4. Status post right ankle surgery. 5. Status post hysterectomy. SOCIAL HISTORY: The patient is and lives in [place] and lives with her . 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 Education, 8th grade. No smoking. No alcohol intake, no IV drug abuse. St atus post blood transfusions. Sedentary lifestyle. ALLERGIES: NAPROSYN. TRAUMA: None. IMMUNIZATIONS: Up-to-date. HOSPITALIZATION: Please see past medical history. FAMILY HISTORY: No family history of ESRD. PHYSICAL EXAMINATION: VITAL SIGNS: Blood pressure is 132/37, heart rate 60, respiratory rate 14, pulse ox 100%, temperatur e 98.8. GENERAL: Noted to be unresponsive, not following commands, intubated on ventilator support. HEENT: Slightly pinkish conjunctivae, anicteric sclerae. NECK: No neck mass, no carotid bruits, no JVD. CHEST: No deformities. LUNGS: Decreased breath sounds. HEART: Normal sinus rhythm. No murmurs, no gallops, no rubs. ABDOMEN: Globular, soft, nontender, no masses. EXTREMITIES: Positive for edema, no deformities. NEUROLOGIC: The patient responded to commands per se. IMAGING DATA: 1. CT scan of the brain, no acute intracranial abnormality. 2. Chest x-ray, bilateral pleural effusions with pulmonary vascular congestion. MEDICATIONS: Medications of 07/02/2017 showed Tylenol 650 mg q.4 p.r.n., Dulcolax 10 mg p.r.n., cefe pime 1 gram every day, fentanyl citrate drip, Lasix 20 mg IV q.12 hours, Humalog sliding scale, Dipri van drip. LABORATORY DATA: Laboratories of 07/02/2017; white count 7.2, hemoglobin 8.4, sodium 141, potassium 5.4, chloride 107, carbon dioxide 24, BUN 76, creatinine 3.21, GFR is 14 mL per minute, calcium is 9. 2. ASSESSMENT AND PLAN: 1. Acute kidney injury/chronic renal failure - superimpose ischemic acute tubular necrosis. Creati nine 3.21 is nearing her recent hospitalization baseline. Of interest, her creatinine has improved t o a best value of about 2.9 at the rehabilitation. That slightly higher creatinine again may reflect some degree of hemodynamic instability with this patient. She was noted to be in congestive heart f ailure. Agree with current diuretics with this patient. 2. Congestive heart failure on IV Lasix q.12. There is no indication for any acute dialytic interve ntion with this patient at the present time. 3. Hyperkalemia, stable. Much improved from last night. 4. Congestive heart failure. Continue IV diuretics. 5. Decreased mentation. The patient is undergoing EEG. CT scan is benign. May simply have metabol ic encephalopathy. Overall, agree with current management. ADDENDUM: Discussed case of length with patient's and her son.
[2017-07-02] MEDS ORDERED: Furosemide 100 MG/10 ML VIAL SLOW IVP SCH (10:02)
--- NOTE | 2017-07-02 13:48 | CON ---
DATE OF CONSULTATION: 07/02/2017 PRIMARY SQL BI DEVELOPER: Marlon Mccallum M.D. REASON FOR CONSULTATION: Heart failure. HISTORY OF PRESENT ILLNESS: Ms. Sung is a pleasant 77-year-old female who comes to the [facility] for shortness of breath and altered mentation. She was admitted to this facility back in 06/08 and she presented with a non-ST elevation [place] and had a heart catheterization done by Dr. Mccallum that showed multivessel coronary artery disease, so she underwent coronary artery bypass grafting by Dr. Lucero on 06/12/2017. She had severe main disease, so underwent LEIVA to the LAD and SVG to the diagonal, SVG to OM, and SVG to an acute marginal. She did well postoperatively. She did have diffi culty with PT at first, but was actually working very well with physical therapy towards the end of h er postop hospital stay. She came in this time as she has been lethargic for the last few days, wors ening, unable to participate in rehabilitation, not eating as well. Because of all these things, she was sent to the ER where she was found to be lethargic and secondary to low GCS and feeling that she was not going to be able to protect her airway, she had to be intubated and is currently intubated a nd sedated. I cannot give much more history because of this. PAST MEDICAL HISTORY: 1. Coronary artery disease, status post bypass x4 as above. 2. Hypertension. 3. Type 2 diabetes. 4. Psoriasis. 5. Degenerative joint disease. 6. Diastolic heart failure. 7. Renal insufficiency. PAST SURGICAL HISTORY: 1. CABG. 2. Right ankle surgery. 3. Hysterectomy. OUTPATIENT MEDICATIONS: 1. Crestor 10 mg at bedtime. 2. Synthroid 88 mcg a day. 3. DuoNebs. 4. Famotidine. 5. Carvedilol 3.125 mg b.i.d. 6. Aspirin 325 a day. 7. Amlodipine 10 mg a day. 8. Albuterol. 9. Humira 40 mg subcu every 2 weeks. ALLERGIES: NAPROXEN and HYDROCODONE. FAMILY HISTORY: Noncontributory. SOCIAL HISTORY: No alcohol, tobacco or drugs. REVIEW OF SYSTEMS: Unobtainable as the patient is sedated and intubated. PHYSICAL EXAMINATION: VITAL SIGNS: Temperature 99.5, pulse 61, respiratory rate 14, satting 97% on 33% FIO2. GENERAL: Sedated and intubated. LUNGS: Coarse breath sounds bilaterally. CARDIOVASCULAR: S1, S2. No S3, distant heart sounds due to referred sounds from the lungs. Difficu lt to appreciate murmurs. ABDOMEN: Soft with positive bowel sounds. EXTREMITIES: 1+ edema. SKIN: Warm and dry. LABORATORY DATA AND IMAGING DATA: Laboratory work was reviewed. CBC with white count of 7.3, hemogl obin of 8.4, hematocrit 27, and platelet count of 104. ABG was reviewed. Chemistries were reviewed. Sodium 149, potassium 5.4, BUN 76, creatinine 3.21, mildly higher than before, GFR of 14, glucose 1 49. Troponin was 0.06 and then 0.06 x3. BNP was 1270. UA showed more than 300 protein, 7-10 hyaline casts, otherwise negative. Toxicology was unremarkable . EKG was reviewed. Telemetry was reviewed. Chest x-ray was reviewed, which shows bilateral pulmonary edema appears to be a left lower lobe conso lidation of bilateral pleural effusions and pulmonary vascular congestion. CT of the brain showed no acute intracranial process. ASSESSMENT AND PLAN: 1. Acute on chronic diastolic heart failure. 2. Mild to moderate aortic stenosis. 3. Possible left lower lobe pneumonia. 4. Acute hypoxic respiratory insufficiency. 5. Altered mental status. 6. Coronary artery disease status post bypass, stable at this time. PLAN: 1. Agree with increased diuresis. Most of her insufficiency is related to heart failure; however, c annot exclude pneumonia. This could be a hospital acquired pneumonia that she recently in the hospit al. Antibiotics per primary team. 2. Continue aspirin for life. 3. Hemodynamically stable at this time on no pressor support. Thank you for letting us to participate in the care of your patient. Dr. Mccallum, her primary cardiol ogist will follow up in the morning.
--- NOTE | 2017-07-02 14:59 | PDOC.PN ---
- Subjective Encounter Start Date: 07/02/17 Encounter Start Time: 08:40 -: non-verbal Pt seen for followup re: acute respiratory failure. Pt is intubated, unable to complete ROS. - Objective Resuscitation Status: Resuscitation Status FULL:Full Resuscitation MAR Reviewed: Yes Vital Signs & Weight: Vital Signs (12 hours) Temp Pulse Resp BP Pulse Ox 07/02/17 14:00 14 07/02/17 12:00 99.5 F 14 07/02/17 11:01 63 136/44 L 07/02/17 10:00 14 07/02/17 08:00 98.2 F 59 L 14 97 07/02/17 07:35 61 137/37 L 07/02/17 06:00 14 07/02/17 04:00 14 Weight Admit Weight 185 lb Weight 185 lb 13.595 oz Most Recent Monitor Data Heart Rate from ECG 61 NIBP 138/39 NIBP BP-Mean 68 Respiration from ECG 15 SpO2 96 I&O: 07/01/17 07/02/17 07/03/17 06:59 06:59 06:59 Output Total 405 585 Balance -405 -585 Result Diagrams: 07/02/17 04:48 07/03/17 09:20 Additional Labs: Accuchecks 07/02/17 07/02/17 11:11 04:47 POC Glucose 75 74 EKG Reviewed by me: Yes (Tele: NSR) Phys Exam - Physical Examination Obese HEENT: moist MMs, sclera anicteric ETT Respiratory: no wheezing, no rales, no rhonchi, clear to auscultation bilateral Cardiovascular: RRR, no rub Gastrointestinal: soft, non-tender, no distention, positive bowel sounds Musculoskeletal: edema present Neurological: moves all 4 limbs Deviation from normal: Unable to assess mood, affect or orientation to person, place or time Skin: no rash Dx/Plan (1) Acute respiratory failure Code(s): J96.00 - ACUTE RESPIRATORY FAILURE, UNSP W HYPOXIA OR HYPERCAPNIA Status: Acute (2) Healthcare associated bacterial pneumonia Code(s): J15.9 - UNSPECIFIED BACTERIAL PNEUMONIA Status: Acute (3) CKD (chronic kidney disease) Code(s): N18.9 - CHRONIC KIDNEY DISEASE, UNSPECIFIED Status: Chronic (4) Coronary artery disease Code(s): I25.10 - ATHSCL HEART DISEASE OF [place] CORONARY ARTERY W/O ANG PCTRS Status: Chronic Qualifiers: Coronary Disease-Associated Artery/Lesion type: [place] artery (5) Diabetes type 2, controlled Code(s): E11.9 - TYPE 2 DIABETES MELLITUS WITHOUT COMPLICATIONS Status: Chronic (6) Hypertension Code(s): I10 - ESSENTIAL (PRIMARY) HYPERTENSION Status: Chronic (7) Hypothyroidism Code(s): E03.9 - HYPOTHYROIDISM, UNSPECIFIED Status: Chronic - Plan plan discussed w/ family, continue antibiotics * . Continue diuresis. Empiric antibiotics to cover infection (recent hospitalization). Await 2D echo. Review of Systems - Medications/Allergies Allergies/Adverse Reactions: Allergies Allergy/AdvReac Type Severity Reaction Status Date / Time naproxen sodium [From Aleve] Allergy Mild Verified 06/09/17 01:43 hydrocodone Allergy Verified 06/21/17 14:28 Medications: Current Medications Acetaminophen (Tylenol) 650 mg PO Q4H PRN PRN Reason: Headache/Fever or Pain Acetaminophen (Tylenol) 650 mg [place] Q4H PRN PRN Reason: Headache/Fever or Pain Bisacodyl (Dulcolax) 10 mg PO DAILYPRN PRN PRN Reason: Constipation Bisacodyl (Dulcolax) 10 mg [place] Q24H PRN PRN Reason: Constipation Dextrose/Water (Dextrose 50%) 25 gm SLOW IVP PRN PRN PRN Reason: Hypoglycemia Furosemide (Lasix) 60 mg SLOW IVP 0600,1400 [facility] Last Admin: 07/02/17 13:41 Dose: 60 mg Glucagon (Glucagon) 1 mg IM PRN PRN PRN Reason: Hypoglycemia Dextrose/Water (D5w) 1,000 mls @ 0 mls/hr IV .Q0M PRN; As Directed PRN Reason: Hypoglycemia Fentanyl Citrate 2,000 mcg/ (Sodium Chloride) 100 mls @ 0 mls/hr IV INF [facility]; Per Protocol PRN Reason: Protocol Stop: 07/31/17 21:43 Fentanyl Citrate (Fentanyl Bolus) 250 mls @ 0 mls/hr IVPB PRN PRN; As Directed PRN Reason: Breakthrough pain Stop: 07/31/17 21:43 Cefepime HCl 1 gm/Miscellaneous Medication 1 each/ Sterile Water 10 mls @ 120 mls/hr SLOW IVP 0830 [facility] Last Admin: 07/02/17 11:22 Dose: 10 mls Insulin Human Lispro (Humalog) 0 units SC .MILD SLIDING SCALE PRN PRN Reason: Mild Correctional Scale Lorazepam (Ativan) 2 mg SLOW IVP Q2H PRN PRN Reason: Anxiety to achieve Myrick 2-3 Stop: 07/31/17 21:43 Morphine Sulfate (Morphine) 2 mg SLOW IVP Q2H PRN PRN Reason: Breakthrough pain Stop: 07/31/17 21:43 Last Admin: 07/02/17 05:20 Dose: 2 mg Discontinue Previous Narcotic Pain Medications And Benzodiazepines 1 each FS .ONE [facility] Stop: 07/31/17 21:43 Propofol (Diprivan) 1,000 mg IV INF PRN; Protocol PRN Reason: TO ACHIEVE MYRICK SCORE 2-3 Stop: 07/31/17 21:43 Sodium Chloride (Flush - Normal Saline) 10 ml IVF Q12HR [facility] Last Admin: 07/02/17 11:22 Dose: 10 ml Sodium Chloride (Flush - Normal Saline) 10 ml IVF PRN PRN PRN Reason: Saline Flush
--- NOTE | 2017-07-02 15:14 | EEG ---
Referring Physician: Leonel HAYDEN EEG # [id number] TEST TYPE: ROUTINE PORTABLE INPATIENT REPORT: AN EEG USING THE INTERNATIONAL TEN-TWENTY SYSTEM OF ELECTRODE PLACEMENT WAS PERFORMED. The background activity consists of a very suppressed, low amplitude delta- theta frequency. This pattern appeared symmetrical over both hemisphere. Photic stimulation was unremarkable. No epileptiform features were present. IMPRESSION: THERE IS SEVERE SLOWING AND SUPPRESSION OVER BOTH HEMISPHERES CONSISTENT WITH A DIFFUSE ENCEPHALOPATHIC PROCESS. Automotive Product Specialist: joceline Gray Tender: EEG.HAYDEE VIVEROS
[2017-07-02] MEDS ORDERED: Acetaminophen 325 MG TAB PO PRN (19:06)
[2017-07-02] MEDS ORDERED: Bisacodyl 10 MG SUPP PR PRN (19:10)
[2017-07-02] MEDS ORDERED: Bisacodyl 5 MG TAB PO PRN (19:10)
[2017-07-02] MEDS ORDERED: Acetaminophen 650 MG Suppository PR PRN (19:10)
[2017-07-02] MEDS ORDERED: Dextrose 50% Abboject 50 ML SYRINGE SLOW IVP PRN (19:12)
[2017-07-02] MEDS ORDERED: Dextrose 5% in Water 1,000 ML IV PRN (19:12)
[2017-07-02] MEDS ORDERED: Propofol 1,000 MG/100 ML VIAL IV PRN (19:13)
[2017-07-02] MEDS ORDERED: Morphine 2 MG/ML SYRINGE SLOW IVP PRN (19:14)
[2017-07-02] MEDS ORDERED: Lorazepam 2 MG/ML VIAL SLOW IVP PRN (19:14)
[2017-07-02] MEDS ORDERED: fentaNYL Citrate/PF 2,000 MCG in Sodium Chloride 0.9% 60 ML IV SCH (19:15)
[2017-07-02] MEDS ORDERED: DISCONTINUE PREVIOUS NARCOTIC PAIN MEDICATIONS AND BENZODIAZEPINES FS SCH (19:15)
--- NOTE | 2017-07-02 22:39 | CON ---
DATE OF CONSULTATION: 07/02/2017 CONSULTING PHYSICIAN: Hospitalist Service. IMPRESSION: 1. Preemptive delirium over the recent past, possibly secondary to multiple factors including renal insufficiency and now respiratory failure. 2. Preemptive anorexia and physical decline. 3. Diabetes. 4. Hypertension. 5. Congestive heart failure. 6. Possible pneumonia. PLAN: 1. Lab work for now. 2. Call back for followup once she is extubated and off sedation for further evaluation of her delir ium. HISTORY OF PRESENT ILLNESS: Ms. Sung is a 77-year-old female who has not been doing very w ell over the recent past according to her family. She is spending most of her time in bed and starte d refusing to eat. She was getting weaker and weaker to the point that she could stand up on her own . They decided to bring her in to the hospital for evaluation. She has a recent history of bypass t hat was done last month. She was noted by family members to frequently having visual hallucinations. These continued after she returned home and frequently saw a child in her room that she claimed was snoring. She was not showing any memory decline based on her 's assessment. Since admission , she has been noted to be quite anemic and her renal function is significantly impaired with a BUN o f 76 and creatinine of 3.2. Chest x-ray suggested pulmonary edema and questionable pneumonia. We ob tained an EEG which showed some diffuse slowing and suppression without any evidence of epileptiform features. No imaging of her brain has been done. PAST MEDICAL HISTORY: As listed above. ALLERGIES: None reported. SOCIAL HISTORY: No tobacco or alcohol use. FAMILY HISTORY: Noncontributory. REVIEW OF SYSTEMS: Not obtainable through the family. PHYSICAL EXAMINATION: GENERAL: She appears to be a reasonably nourished elderly lady lying in bed on ventilatory support. VITAL SIGNS: Blood pressure 151/39, pulse 61, saturation is 99%. HEENT: Unremarkable. NEUROLOGIC: Not possible at this point. IMPRESSION AND PLAN: This is an elderly lady who is dwindled in regard to her strength and mobility over the recent past. She appears to be showing a combination of both renal and respiratory insuffic iency. She was having some delirium which could be related to her renal failure. I would start with some metabolic studies and I will be happy to follow up with her one second examiner.
[2017-07-03] MEDS: Furosemide 100 MG/10 ML VIAL SLOW IVP SCH ×2 (05:28→15:16)
[2017-07-03 07:24] LABS: Actual Bicarbonate (HCO3a) 26.6 mEq/L (22-26); Base Excess (BEa) 3.3 mEq/L (0 (+/-) 2.5); Hemoglobin (Hb) 8.7 g/dL (12.0-16.0)
[2017-07-03 07:25] LABS: Calcium, Ionized 1.3 mmol/L (1.12-1.30); Puncture Site RRA
--- NOTE | 2017-07-03 08:00 | RAD ---
PORTABLE SEMIUPRIGHT FRONTAL CHEST RADIOGRAPH: DATE: 07/03/17. COMPARISON: 07/01/17. HISTORY: Ventilated patient. FINDINGS: Endotracheal tube, nasogastric tube, and right-sided vascular catheter in stable position. Stable mi dline sternotomy wires are present. There is atherosclerotic calcification in the aortic arch. There is increased density in both lung bases, left greater than right, evidence of nonspecific pleur al and parenchymal opacity. These findings are not significantly changed. IMPRESSION: No significant interval change. Lines and tubes as above. Bibasilar pleural and parenchymal opaciti es suggest pulmonary edema. Infectious pneumonia or aspiration is a possibility. POS: DENISE
[2017-07-03] MEDS: Cefepime 1 GM, Admixture Fee 1 EACH in Sterile Water 10 ML SLOW IVP SCH (08:26)
--- NOTE | 2017-07-03 08:27 | PDOC.PULCC ---
CCU Progress Note: Subj/Obj - Subjective Date: 07/03/17 Time: 08:26 Subjective: Will wake up and follow commands. at bedside. Pt still intubated - Objective Allergies/Adverse Reactions: Allergies Allergy/AdvReac Type Severity Reaction Status Date / Time naproxen sodium [From Aleve] Allergy Mild Verified 06/09/17 01:43 hydrocodone Allergy Verified 06/21/17 14:28 Medications: Current Medications Acetaminophen (Tylenol) 650 mg PO Q4H PRN PRN Reason: Headache/Fever or Pain Acetaminophen (Tylenol) 650 mg [place] Q4H PRN PRN Reason: Headache/Fever or Pain Bisacodyl (Dulcolax) 10 mg PO DAILYPRN PRN PRN Reason: Constipation Bisacodyl (Dulcolax) 10 mg AR Q24H PRN PRN Reason: Constipation Dextrose/Water (Dextrose 50%) 25 gm SLOW IVP PRN PRN PRN Reason: Hypoglycemia Furosemide (Lasix) 60 mg SLOW IVP 0600,1400 [facility] Last Admin: 07/03/17 05:28 Dose: 60 mg Glucagon (Glucagon) 1 mg IM PRN PRN PRN Reason: Hypoglycemia Dextrose/Water (D5w) 1,000 mls @ 0 mls/hr IV .Q0M PRN; As Directed PRN Reason: Hypoglycemia Fentanyl Citrate 2,000 mcg/ (Sodium Chloride) 100 mls @ 0 mls/hr IV INF [facility]; Per Protocol PRN Reason: Protocol Stop: 08/01/17 19:16 Fentanyl Citrate (Fentanyl Bolus) 250 mls @ 0 mls/hr IVPB PRN PRN; As Directed PRN Reason: Breakthrough pain Stop: 08/01/17 19:16 Cefepime HCl 1 gm/Miscellaneous Medication 1 each/ Sterile Water 10 mls @ 120 mls/hr SLOW IVP 0830 [facility] Insulin Human Lispro (Humalog) 0 units SC .MILD SLIDING SCALE PRN PRN Reason: Mild Correctional Scale Lorazepam (Ativan) 2 mg SLOW IVP Q2H PRN PRN Reason: Anxiety to achieve Myrick 2-3 Stop: 08/01/17 19:15 Morphine Sulfate (Morphine) 2 mg SLOW IVP Q2H PRN PRN Reason: Breakthrough pain Stop: 08/01/17 19:15 Discontinue Previous Narcotic Pain Medications And Benzodiazepines 1 each FS .ONE [facility] Stop: 08/01/17 19:16 Propofol (Diprivan) 1,000 mg IV INF PRN; Protocol PRN Reason: TO ACHIEVE MYRICK SCORE 2-3 Stop: 08/01/17 19:14 Sodium Chloride (Flush - Normal Saline) 10 ml IVF Q12HR [facility] Last Admin: 07/02/17 20:17 Dose: 10 ml Sodium Chloride (Flush - Normal Saline) 10 ml IVF PRN PRN PRN Reason: Saline Flush MAR Reviewed: Yes Vital Signs and I&O: Vital Signs Temp 99.2 F 07/02/17 19:12 Pulse 63 07/03/17 07:00 Resp 12 07/03/17 08:00 BP 139/44 L 07/03/17 07:00 Pulse Ox 97 07/02/17 19:12 Intake & Output 07/02/17 07/03/17 07/03/17 18:59 06:59 18:59 Intake Total 127 398 Output Total 1785 3100 350 Balance -1658 -2702 -350 Weight 185 lb 13.595 oz 176 lb 2.389 oz Intake: Intake, IV Amount 127 133 Sodium Chloride 0.9% 10 127 133 ml IVF PRN PRN Rx#: [id number] Tube Feeding 175 Tube Irrigant 90 Output: Output, [place] 1785 3100 350 Other: Voiding Method Indwelling Catheter Indwelling Catheter Vent Setting: see ABG Spontaneous Breathing Test: done (On PS 12) CCU Progress Note: Exam - Physical Exam Constitutional: NAD HEENT: PERRLA, moist MMs Neck: no nodes, no JVD Cardiovascular: RRR Respiratory: rales Gastrointestinal: soft, non-tender Musculoskeletal: edema present Neurological: non-focal, normal sensation, moves all 4 limbs Lymphatic: no nodes Psychiatric: normal affect Deviation from normal: dry skin - Labs Result Diagrams: 07/02/17 04:48 07/02/17 04:48 Lab results: Laboratory Results - last 24 hr 07/02/17 07/02/17 07/02/17 06:30 11:11 17:21 Specimen Type ARTERIAL Puncture Site LRA Bicarbonate Actual 24.2 ABG pH 7.42 ABG pCO2 37.9 ABG pO2 83.3 ABG O2 Sat Calc/[place] 97.3 ABG O2 Content 10.4 L ABG Base Excess -0.1 ABG Hematocrit 26.1 L ABG Hemoglobin 7.7 L ABG Oxyhemoglobin 94.8 ABG Carboxyhemoglobin 1.8 ABG Methemoglobin 0.7 ABG Deoxyhemoglobin 2.7 Teodoro Test POSITIVE A-a O2 Gradient 150.525 H Sodium Potassium Chloride Ionized Calcium Mode of Support SIMV.PSV Mechanical Rate 14 Inspired O2 40 Tidal Volume 450 Pressure Support 10 PEEP or CPAP 5.0 POC Glucose 75 80 Ammonia Vitamin B12 Thyroxine (T4) Cortisol 07/02/17 07/02/17 07/02/17 17:36 17:36 17:36 Specimen Type Puncture Site Bicarbonate Actual ABG pH ABG pCO2 ABG pO2 ABG O2 Sat Calc/Elma ABG O2 Content ABG Base Excess ABG Hematocrit ABG Hemoglobin ABG Oxyhemoglobin ABG Carboxyhemoglobin ABG Methemoglobin ABG Deoxyhemoglobin Teodoro Test A-a O2 Gradient Sodium Potassium Chloride Ionized Calcium Mode of Support Mechanical Rate Inspired O2 Tidal Volume Pressure Support PEEP or CPAP POC Glucose Ammonia 81 H Vitamin B12 445 Thyroxine (T4) Cortisol 10.10 07/02/17 07/02/17 07/03/17 17:36 20:16 07:00 Specimen Type ARTERIAL Puncture Site RRA Bicarbonate Actual 26.6 H ABG pH 7.50 H ABG pCO2 35.0 ABG pO2 80.0 ABG O2 Sat Calc/[place]ma 97.3 ABG O2 Content 11.7 L ABG Base Excess 3.3 H ABG Hematocrit ABG Hemoglobin 8.7 L ABG Oxyhemoglobin ABG Carboxyhemoglobin 2.0 ABG Methemoglobin 0.5 ABG Deoxyhemoglobin Teodoro Test POSITIVE A-a O2 Gradient 111.540 H Sodium 145 Potassium 4.1 Chloride 101 Ionized Calcium 1.3 Mode of Support SIMV.PSV Mechanical Rate 14 Inspired O2 33 Tidal Volume 450 Pressure Support 10 PEEP or CPAP 5.0 POC Glucose 84 Ammonia Vitamin B12 Thyroxine (T4) 4.8 L Cortisol CCU Progress Note: A/P - Problems (1) Acute respiratory failure Current Visit: Yes Status: Acute Code(s): J96.00 - ACUTE RESPIRATORY FAILURE , UNSP W HYPOXIA OR HYPERCAPNIA (2) Healthcare associated bacterial pneumonia Current Visit: Yes Status: Acute Code(s): J15.9 - UNSPECIFIED BACTERIAL PNEUMONIA (3) Acute on chronic diastolic (congestive) heart failure Current Visit: No Status: Acute Code(s): I50.33 - ACUTE ON CHRONIC DIASTOLIC (CONGESTIVE) HEART FAILURE (4) Acute renal failure (ARF) Current Visit: No Status: Acute Qualifiers: Acute renal failure type: with acute tubular necrosis Qualified Code(s): N17.0 - Acute kidney failure with tubular necrosis - Time Spent with Patient Time: 35 min cc time - Plan Plan: Maybe extubated on Thursday PS weaning today Continue diureses Continue Antibiotics (although I think primary issue is CHF) No narcotics Cont TF
[2017-07-03 09:59] LABS: Anion Gap 16 mmol/L (10-20); BUN (Urea Nitrogen) 57 mg/dL (9.8-20.1); Calc. Creatinine Clearance 21 mL/min (70-130); Calcium 9.3 mg/dL (7.8-10.44); Carbon Dioxide 27 mmol/L (23-31); Chloride 106 mmol/L (98-107); Estimated GFR-MDRD 16; Glucose 131 mg/dL (83-110); Potassium 4.1 mmol/L (3.5-5.1); Sodium 145 mmol/L (136-145)
--- NOTE | 2017-07-03 12:49 | PDOC.PN ---
- Subjective Encounter Start Date: 07/03/17 Encounter Start Time: 09:40 Pt seen for followup re: acute respiratory failure. Opens eyes to voice, nonverbal, unable to complete ROS. - Objective Resuscitation Status: Resuscitation Status FULL:Full Resuscitation MAR Reviewed: Yes Vital Signs & Weight: Vital Signs (12 hours) Temp Pulse Resp BP Pulse Ox 07/03/17 11:13 72 140/37 L 07/03/17 10:00 19 07/03/17 08:25 99.3 F 61 19 96 07/03/17 08:00 12 07/03/17 07:00 63 139/44 L 07/03/17 05:32 21 H 07/03/17 04:00 14 07/03/17 02:39 62 07/03/17 02:00 19 Weight Admit Weight 185 lb Weight 176 lb 2.389 oz Most Recent Monitor Data Heart Rate from ECG 62 NIBP 138/37 NIBP BP-Mean 108 Respiration from ECG 14 SpO2 100 I&O: 07/02/17 07/03/17 07/04/17 06:59 06:59 06:59 Intake Total 525 Output Total 405 4885 900 Balance -405 -4360 -900 Result Diagrams: 07/02/17 04:48 07/03/17 09:20 Additional Labs: Accuchecks 07/03/17 07/03/17 07/02/17 11:18 04:29 20:16 POC Glucose 114 H 113 H 84 07/02/17 17:21 POC Glucose 80 EKG Reviewed by me: Yes (Tele: NSR) Phys Exam - Physical Examination Intubated HEENT: moist MMs, sclera anicteric ETT Neck: no nodes Respiratory: no wheezing, no rales, no rhonchi, clear to auscultation bilateral Cardiovascular: RRR, no rub Gastrointestinal: soft, non-tender, no distention, positive bowel sounds Neurological: moves all 4 limbs Psychiatric: normal affect Deviation from normal: Unable to assess orientation to person, place or time Skin: no rash Dx/Plan (1) Acute respiratory failure Code(s): J96.00 - ACUTE RESPIRATORY FAILURE, UNSP W HYPOXIA OR HYPERCAPNIA Status: Acute (2) Healthcare associated bacterial pneumonia Code(s): J15.9 - UNSPECIFIED BACTERIAL PNEUMONIA Status: Acute (3) CKD (chronic kidney disease) Code(s): N18.9 - CHRONIC KIDNEY DISEASE, UNSPECIFIED Status: Chronic (4) Coronary artery disease Code(s): I25.10 - ATHSCL HEART DISEASE OF [place] CORONARY ARTERY W/O ANG PCTRS Status: Chronic Qualifiers: Coronary Disease-Associated Artery/Lesion type: [place] artery (5) Diabetes type 2, controlled Code(s): E11.9 - TYPE 2 DIABETES MELLITUS WITHOUT COMPLICATIONS Status: Chronic (6) Hypertension Code(s): I10 - ESSENTIAL (PRIMARY) HYPERTENSION Status: Chronic (7) Hypothyroidism Code(s): E03.9 - HYPOTHYROIDISM, UNSPECIFIED Status: Chronic - Plan continue antibiotics, PT/OT * . Continue IV antibiotics as below. Continue diuretics. CAD stable. Continue accuchecks, insulin. Creatinine improving. Review of Systems - Medications/Allergies Allergies/Adverse Reactions: Allergies Allergy/AdvReac Type Severity Reaction Status Date / Time naproxen sodium [From Aleve] Allergy Mild Verified 06/09/17 01:43 hydrocodone Allergy Verified 06/21/17 14:28 Medications: Current Medications Acetaminophen (Tylenol) 650 mg PO Q4H PRN PRN Reason: Headache/Fever or Pain Acetaminophen (Tylenol) 650 mg [place] Q4H PRN PRN Reason: Headache/Fever or Pain Bisacodyl (Dulcolax) 10 mg PO DAILYPRN PRN PRN Reason: Constipation Bisacodyl (Dulcolax) 10 mg [place] Q24H PRN PRN Reason: Constipation Dextrose/Water (Dextrose 50%) 25 gm SLOW IVP PRN PRN PRN Reason: Hypoglycemia Furosemide (Lasix) 60 mg SLOW IVP 0600,1400 [facility] Last Admin: 07/03/17 05:28 Dose: 60 mg Glucagon (Glucagon) 1 mg IM PRN PRN PRN Reason: Hypoglycemia Dextrose/Water (D5w) 1,000 mls @ 0 mls/hr IV .Q0M PRN; As Directed PRN Reason: Hypoglycemia Fentanyl Citrate 2,000 mcg/ (Sodium Chloride) 100 mls @ 0 mls/hr IV INF [facility]; Per Protocol PRN Reason: Protocol Stop: 08/01/17 19:16 Fentanyl Citrate (Fentanyl Bolus) 250 mls @ 0 mls/hr IVPB PRN PRN; As Directed PRN Reason: Breakthrough pain Stop: 08/01/17 19:16 Cefepime HCl 1 gm/Miscellaneous Medication 1 each/ Sterile Water 10 mls @ 120 mls/hr SLOW IVP 0830 [facility] Last Admin: 07/03/17 08:26 Dose: 10 mls Insulin Human Lispro (Humalog) 0 units SC .MILD SLIDING SCALE PRN PRN Reason: Mild Correctional Scale Lorazepam (Ativan) 2 mg SLOW IVP Q2H PRN PRN Reason: Anxiety to achieve Myrick 2-3 Stop: 08/01/17 19:15 Morphine Sulfate (Morphine) 2 mg SLOW IVP Q2H PRN PRN Reason: Breakthrough pain Stop: 08/01/17 19:15 Discontinue Previous Narcotic Pain Medications And Benzodiazepines 1 each FS .ONE [facility] Stop: 08/01/17 19:16 Propofol (Diprivan) 1,000 mg IV INF PRN; Protocol PRN Reason: TO ACHIEVE MYRICK SCORE 2-3 Stop: 08/01/17 19:14 Sodium Chloride (Flush - Normal Saline) 10 ml IVF Q12HR [facility] Last Admin: 07/02/17 20:17 Dose: 10 ml Sodium Chloride (Flush - Normal Saline) 10 ml IVF PRN PRN PRN Reason: Saline Flush
--- NOTE | 2017-07-03 17:28 | PRG ---
DATE OF SERVICE: 07/03/2017 SUBJECTIVE: Ms. Sung is currently sedated and intubated on the ventilator. OBJECTIVE: VITAL SIGNS: Her oxygen saturation is 98%. Blood pressure 135/68, pulse 64 and regular. LUNGS: Clear. CARDIAC: Normal S1 and S2. ABDOMEN: Soft, nontender. EXTREMITIES: No edema. ASSESSMENT: 1. Respiratory failure, mostly related to heart failure. 2. Renal failure actually improving with an estimated GFR now of 16, was down to 13. PLAN: 1. Continue intravenous diuretics. 2. Hopefully extubate tomorrow.
[2017-07-03] MEDS: HumaLOG 300 UNITS/3 ML VIAL SC PRN (21:24)
[2017-07-04] MEDS: HumaLOG 300 UNITS/3 ML VIAL SC PRN (04:23)
[2017-07-04 05:35] LABS: Anion Gap 14 mmol/L (10-20); BUN (Urea Nitrogen) 65 mg/dL (9.8-20.1); Band 17 % (5-11); Calc. Creatinine Clearance 23 mL/min (70-130); Calcium 9.9 mg/dL (7.8-10.44); Carbon Dioxide 32 mmol/L (23-31); Chloride 103 mmol/L (98-107); Estimated GFR-MDRD 18; Glucose 172 mg/dL (83-110); Hemoglobin 8.9 g/dL (12.0-16.0); Lymphocytes 11 % (21-51); MDiff Complete? YES; Mean Corpuscular HGB CONC 30.5 g/dL (32.0-36.0); Mean Corpuscular Hemoglobin 28.7 pg (27.0-31.0); Mean Corpuscular Volume 93.8 fl (81.0-99.0); Mean Platelet Volume 8.1 fL (7.4-10.4); Monocytes 15 % (0-10); Neutrophil 57 % (42-75); PLT Morphology Comment Appears Decreased; Platelet Count 103 thou/uL (130-400); Potassium 3.4 mmol/L (3.5-5.1); RBC Distribution Width 22.4 % (11.5-14.5); RBC Morphology Normal; Red Blood Cell (RBC) Count 3.12 mill/uL (4.20-5.40); Sodium 146 mmol/L (136-145); White Blood Cell (WBC) Count 8.4 thou/uL (4.8-10.8)
[2017-07-04] MEDS: Furosemide 100 MG/10 ML VIAL SLOW IVP SCH (06:16)
[2017-07-04] MEDS: Cefepime 1 GM, Admixture Fee 1 EACH in Sterile Water 10 ML SLOW IVP SCH (07:27)
[2017-07-04 08:03] LABS: Actual Bicarbonate (HCO3a) 32.2 mEq/L (22-26); Base Excess (BEa) 7.6 mEq/L (0 (+/-) 2.5); CO2 Tension 46.4 mmHg (35.0-45.0); Hematocrit-ABG 28.9 % (36.0-47.0); Hemoglobin (Hb) 8.8 g/dL (12.0-16.0); O2 Tension (PaO2) 60.5 mmHg (80.0-100.0); pH, Arterial 7.46 (7.35-7.45)
[2017-07-04 08:04] LABS: Calcium, Ionized 1.3 mmol/L (1.12-1.30); Puncture Site RR
--- NOTE | 2017-07-04 08:37 | RAD ---
CHEST 1 VIEW: Date: 07/04/17 HISTORY: 77-year-old female with respiratory insufficiency, follow-up. FINDINGS: Life support tubes in place and unchanged. Monitor leads overlie the chest. Mild cardiomegaly with bi lateral vascular congestion and some interstitial and alveolar edema and pleural effusions. Stable fr om prior study. IMPRESSION: Stable chest with vascular congestion, interstitial and alveolar edema, pleural effusions, and cardio megaly. Continue short-term follow-up. POS: DARIEN
[2017-07-04] MEDS ORDERED: DC Sedation Protocol FS ONE (10:14)
--- NOTE | 2017-07-04 11:38 | PDOC.PN ---
- Subjective Encounter Start Date: 07/04/17 Encounter Start Time: 09:00 Pt seen for followup re: acute respiratory failure. On vent, following commands. Could not complete ROS due to intubated status. - Objective Resuscitation Status: Resuscitation Status FULL:Full Resuscitation MAR Reviewed: Yes Vital Signs & Weight: Vital Signs (12 hours) Temp Pulse Resp BP Pulse Ox 07/04/17 11:23 100 07/04/17 10:39 61 140/41 L 07/04/17 10:00 16 07/04/17 08:00 98.3 F 62 16 97 07/04/17 07:39 62 128/34 L 07/04/17 07:00 98.3 F 07/04/17 06:00 16 07/04/17 04:00 14 07/04/17 02:33 63 07/04/17 02:00 16 07/04/17 00:00 18 Weight Admit Weight 185 lb Weight 165 lb 5.547 oz Most Recent Monitor Data Heart Rate from ECG 61 NIBP 156/49 NIBP BP-Mean 54 Respiration from ECG 19 SpO2 100 I&O: 07/03/17 07/04/17 07/05/17 06:59 06:59 06:59 Intake Total 525 856 88 Output Total 4825 5270 775 [id number] Result Diagrams: 07/04/17 04:30 07/04/17 04:30 Additional Labs: Accuchecks 07/04/17 07/04/17 07/03/17 09:17 04:21 21:21 POC Glucose 135 H 168 H 158 H 07/03/17 07/03/17 07/03/17 17:24 11:18 04:29 POC Glucose 139 H 114 H 113 H EKG Reviewed by me: Yes (Tele: NSR) Phys Exam - Physical Examination Intubated HEENT: moist MMs ETT Neck: no nodes Respiratory: clear to auscultation bilateral Cardiovascular: RRR Gastrointestinal: soft Neurological: moves all 4 limbs Psychiatric: normal affect Dx/Plan (1) Acute respiratory failure Code(s): J96.00 - ACUTE RESPIRATORY FAILURE, UNSP W HYPOXIA OR HYPERCAPNIA Status: Acute (2) Healthcare associated bacterial pneumonia Code(s): J15.9 - UNSPECIFIED BACTERIAL PNEUMONIA Status: Acute (3) CKD (chronic kidney disease) Code(s): N18.9 - CHRONIC KIDNEY DISEASE, UNSPECIFIED Status: Chronic (4) Coronary artery disease Code(s): I25.10 - ATHSCL HEART DISEASE OF [place] CORONARY ARTERY W/O ANG PCTRS Status: Chronic Qualifiers: Coronary Disease-Associated Artery/Lesion type: [place] artery (5) Diabetes type 2, controlled Code(s): E11.9 - TYPE 2 DIABETES MELLITUS WITHOUT COMPLICATIONS Status: Chronic (6) Hypertension Code(s): I10 - ESSENTIAL (PRIMARY) HYPERTENSION Status: Chronic (7) Hypothyroidism Code(s): E03.9 - HYPOTHYROIDISM, UNSPECIFIED Status: Chronic - Plan continue antibiotics * . Continue diuretics, antibiotics. Renal function improving. Replace potassium. Pt appears to be getting overdiuresed, decrease lasix dose. Review of Systems - Medications/Allergies Allergies/Adverse Reactions: Allergies Allergy/AdvReac Type Severity Reaction Status Date / Time naproxen sodium [From Aleve] Allergy Mild Verified 06/09/17 01:43 hydrocodone Allergy Verified 06/21/17 14:28 Medications: Current Medications Acetaminophen (Tylenol) 650 mg PO Q4H PRN PRN Reason: Headache/Fever or Pain Acetaminophen (Tylenol) 650 mg [place] Q4H PRN PRN Reason: Headache/Fever or Pain Albuterol/Ipratropium (Duoneb) 3 ml NEB [id number] [facility] Last Admin: 07/04/17 10:44 Dose: 3 ml Bisacodyl (Dulcolax) 10 mg PO DAILYPRN PRN PRN Reason: Constipation Bisacodyl (Dulcolax) 10 mg [place] Q24H PRN PRN Reason: Constipation Dextrose/Water (Dextrose 50%) 25 gm SLOW IVP PRN PRN PRN Reason: Hypoglycemia Furosemide (Lasix) 60 mg SLOW IVP 0600,1400 [facility] Last Admin: 07/04/17 06:16 Dose: 60 mg Glucagon (Glucagon) 1 mg IM PRN PRN PRN Reason: Hypoglycemia Dextrose/Water (D5w) 1,000 mls @ 0 mls/hr IV .Q0M PRN; As Directed PRN Reason: Hypoglycemia Cefepime HCl 1 gm/Miscellaneous Medication 1 each/ Sterile Water 10 mls @ 120 mls/hr SLOW IVP 0830 [facility] Last Admin: 07/04/17 07:27 Dose: 10 mls Insulin Human Lispro (Humalog) 0 units SC .MILD SLIDING SCALE PRN PRN Reason: Mild Correctional Scale Last Admin: 07/04/17 04:23 Dose: 2 unit Sodium Chloride (Flush - Normal Saline) 10 ml IVF Q12HR [facility] Last Admin: 07/03/17 20:03 Dose: 10 ml Sodium Chloride (Flush - Normal Saline) 10 ml IVF PRN PRN PRN Reason: Saline Flush
[2017-07-04] MEDS ORDERED: Potassium Chloride 40 MEQ in Premix Bag 1 BAG IVPB SCH (12:00)
--- NOTE | 2017-07-04 13:10 | PRG ---
DATE OF SERVICE: 07/04/2017 SUBJECTIVE: Ms. Sung is a 77-year-old female, who was admitted for congestive heart failur e. She also had mental status change at the time. We are following for her acute kidney injury on t op of her chronic renal failure. Renal function is actually much improved this morning. She is bein g diuresed and doing well. She is now extubated. OBJECTIVE: VITAL SIGNS: Blood pressure 156/49, heart rate 61, respiratory rate 19, O2 sat 100%, AND temperature 98.2. GENERAL: Awake, supine, comfortable, not in distress. SKIN: Follows simple commands. HEENT: She has slightly pale conjunctivae, anicteric sclerae. NECK: No neck mass, no carotid bruits, no JVD. CHEST: No deformities. LUNGS: Decreased breath sounds. HEART: Normal sinus rhythm. No murmur, no gallops, or rubs. ABDOMEN: Globular, soft, nontender, no masses. EXTREMITIES: No edema, no deformities. MEDICATIONS: 07/04/2017 - was reviewed. LABORATORY DATA: 07/04/2017 - White count 8.4, hemoglobin 8.9. Sodium 146, potassium 3.4, chloride 103, carbon dioxide 32, BUN 65, creatinine 2.53, glucose 172, and calcium 9.9. ASSESSMENT AND PLAN: 1. Acute kidney injury - superimposed prerenal azotemia with underlying acute tubular necrosis from the recent hospitalization. Creatinine is actually much improved to a most recent value of 2.53 from a peaked of 3.41. Continue current diuretic regimen. Improved renal function and now showed which is like improving cardiac status with this patient. 2. Congestive heart failure, clinically much improved. The patient is extubated, I agree with bill nt IV Lasix. There is no indication for any dialytic intervention with this patient.
[2017-07-04] MEDS: Furosemide 40 MG/4 ML VIAL SLOW IVP SCH (14:58)
--- NOTE | 2017-07-04 19:02 | PRG ---
DATE OF SERVICE: 07/04/2017 SUBJECTIVE: Sowmya Sung is awake, alert, responsive on the vent. She moves all 4 extremities. She has been on CPAP and seems to be tolerating it. PHYSICAL EXAMINATION: VITAL SIGNS: Respiratory rate 20, blood pressure 130/40, sats are 98%, temperature 98. I's and O's 856 in and 5270 out. CHEST: Bilateral crackles. CARDIAC: Normal S1, S2, no gallops. ABDOMEN: Soft, no masses. LABORATORY DATA: White count 8,000, H and H 8 and 29, platelet count is low at 103, 17 segs, lymphoc ytes 11, pO2 60, pCO2 46, pH 7.46, 27% FiO2, pressure support of 10, and PEEP of 5. Creatinine is 2.5 and BUN is 65. IMPRESSION: 1. Respiratory failure and congestive heart failure, EF was normal. 2. Renal failure. 3. Retained secretions, abnormal x-ray and pleural effusion. 4. Pneumonia. PLAN: Empiric neb treatments have been initiated. We will try and extubate to see how she does off on CPAP. One-half hour critical care time.
[2017-07-05 05:05] LABS: Anion Gap 14 mmol/L (10-20); BUN (Urea Nitrogen) 59 mg/dL (9.8-20.1); Calc. Creatinine Clearance 26 mL/min (70-130); Calcium 9.7 mg/dL (7.8-10.44); Carbon Dioxide 36 mmol/L (23-31); Chloride 103 mmol/L (98-107); Estimated GFR-MDRD 22; Glucose 84 mg/dL (83-110); Potassium 3.2 mmol/L (3.5-5.1); Sodium 150 mmol/L (136-145)
[2017-07-05 05:34] LABS: #Basophils 0.1 thou/uL (0.0-0.2); #Eosinphils 0.5 thou/uL (0.0-0.7); #Lymphocytes 1.3 thou/uL (1.20-3.40); #Monocytes 0.6 thou/uL (0.11-0.59); #Neutrophils 2.3 thou/uL (1.40-6.50); %Basophils 1.1 % (0.0-1.0); %Eosinophils 10.3 % (0.0-10.0); %Lymphocytes 27.2 % (21.0-51.0); %Neutrophils 48.4 % (42.0-75.0); Mean Corpuscular HGB CONC 31.6 g/dL (32.0-36.0); Mean Corpuscular Volume 94.7 fl (81.0-99.0); Mean Platelet Volume 8.4 fL (7.4-10.4); Platelet Count 79 thou/uL (130-400); RBC Distribution Width 21.8 % (11.5-14.5); Red Blood Cell (RBC) Count 2.66 mill/uL (4.20-5.40); White Blood Cell (WBC) Count 4.7 thou/uL (4.8-10.8)
[2017-07-05 05:35] LABS: Anisocytosis SLIGHT = 6-15 cells (100X) (0-5/hpf); Hypochromia SLIGHT = 6-15 cells (100X) (0-5/hpf); MDiff Complete? YES; PLT Morphology Comment Appears Decreased; Stomatocytes SLIGHT = 2-5 cells (100X) (0-1/hpf)
[2017-07-05] MEDS: Furosemide 40 MG/4 ML VIAL SLOW IVP SCH ×2 (06:02→15:13)
[2017-07-05] MEDS: Cefepime 1 GM, Admixture Fee 1 EACH in Sterile Water 10 ML SLOW IVP SCH (08:08)
--- NOTE | 2017-07-05 09:37 | RAD ---
UPRIGHT PORTABLE CHEST 1 VIEW: Date: 07/05/17 HISTORY: 77-year-old female with respiratory insufficiency. FINDINGS: NG tube and endotracheal tubes have been removed. Persistent cardiomegaly with bilateral pleural effu sions and stable vascular congestion. IMPRESSION: Stable cardiomegaly, pleural effusions, vascular congestion, and interstitial and alveolar parenchyma l changes. Removal of the NG tube and endotracheal tubes. No other new process. POS: DARIEN
--- NOTE | 2017-07-05 11:12 | PDOC.PN ---
- Subjective Encounter Start Date: 07/05/17 Encounter Start Time: 11:10 Patient seen and examined, no new issues. - Objective Resuscitation Status: Resuscitation Status FULL:Full Resuscitation Vital Signs & Weight: Vital Signs (12 hours) Temp Pulse Resp Pulse Ox 07/05/17 07:41 97.9 F 66 20 98 07/05/17 07:36 100 07/05/17 07:34 66 20 100 07/05/17 00:36 61 17 100 Weight Admit Weight 185 lb Weight 157 lb 6.561 oz Most Recent Monitor Data Heart Rate from ECG 66 NIBP 142/38 NIBP BP-Mean 115 Respiration from ECG 16 SpO2 98 I&O: 07/04/17 07/05/17 07/06/17 06:59 06:59 06:59 Intake Total 856 383 10 Output Total 6693 3515 Balance -8452 -6839 10 Result Diagrams: 07/05/17 04:30 07/05/17 04:30 Additional Labs: Accuchecks 07/05/17 07/05/17 07/04/17 10:34 04:47 21:00 POC Glucose 87 86 106 07/04/17 15:09 POC Glucose 119 H Phys Exam - Physical Examination Constitutional: NAD HEENT: PERRLA, moist MMs Neck: no nodes, no JVD Respiratory: no wheezing, no rales Cardiovascular: RRR, no significant murmur Gastrointestinal: soft, non-tender Musculoskeletal: pulses present, edema present (trace) Neurological: non-focal, normal sensation Psychiatric: normal affect, A&O x 3 Dx/Plan (1) CKD (chronic kidney disease) Code(s): N18.9 - CHRONIC KIDNEY DISEASE, UNSPECIFIED Status: Chronic (2) Acute on chronic diastolic (congestive) heart failure Code(s): I50.33 - ACUTE ON CHRONIC DIASTOLIC (CONGESTIVE) HEART FAILURE Status : Acute Comment: Diuresed and feeling better. Increasing Coreg (3) Normocytic anemia Code(s): D64.9 - ANEMIA, UNSPECIFIED Status: Acute Comment: Developed since 2017, uncertain eitiology, no renal failure, low iron levels, neg hemoccult. Suspect GI blood loss though not actively. Will need GI w/u as outpatient. (4) Diabetes type 2, controlled Code(s): E11.9 - TYPE 2 DIABETES MELLITUS WITHOUT COMPLICATIONS Status: Chronic (5) Hypertension Code(s): I10 - ESSENTIAL (PRIMARY) HYPERTENSION Status: Chronic (6) Hypothyroidism Code(s): E03.9 - HYPOTHYROIDISM, UNSPECIFIED Status: Chronic - Plan * BP stable * oxygenating well * tolerating diet, will advance slowly * afebrile * continue with current plan of care, can transfer to telemetry in AM if stable * case and plan d/w patient and family at length, they understand and agree with this plan
--- NOTE | 2017-07-05 12:11 | PRG ---
DATE OF SERVICE: 07/05/2017 RENAL MEDICINE SUBJECTIVE: Ms. Sung is a [id number] female who was seen by the renal service for an acute kidney injury on top of her chronic renal failure. She was also initially admitted for CHF. She was diuresed and she is much improved with regard to her congestive heart failure. There is any issue w hether the patient may be aspirating. We are waiting for speech therapy. She is currently on n.p.o. to explain her hypernatremia and hypokalemia. No complaints of chest pain, shortness of breath. OBJECTIVE: VITAL SIGNS: Blood pressure 142/38, heart rate 66, respiratory rate is 12, O2 sat 98%. GENERAL: Awake, supine, comfortable, not in distress. SKIN: Adequate turgor. HEENT: She has slightly pale conjunctivae, anicteric sclerae. NECK: No neck mass, no carotid bruits, no JVD. CHEST: No deformities. LUNGS: Decreased breath sounds. HEART: Normal sinus rhythm. No murmur, no gallops, no rubs. ABDOMEN: Globular, soft, nontender, no masses. EXTREMITIES: Trace edema. MEDICATIONS: Of 07/05/2017, reviewed. LABORATORY: Of 07/05/2017: White count 4.7, hemoglobin 8. Sodium 150, potassium 3.2, chloride 103, carbon dioxide 36, BUN 59, creatinine 2.13, calcium is 9.7. ASSESSMENT AND PLAN: 1. Acute kidney injury on top of chronic renal failure, much improved creatinine. Most recent creat inine is around 2.13 and please note the creatinine was said to have peaked at the value of 3.41. Co ntinue current gentle diuresis with this patient. There is no indication for any dialytic interventi on. 2. Mild hypernatremia/mild hypokalemia--secondary to n.p.o. state for the patient. If she is not ab le to take p.o., consider starting on gentle IV hydration with hypotonic saline with potassium. Awai ting speech therapy to determine if this patient is aspirating or not. 3. Anemia. Continue to observe, p.r.n. blood transfusions. 4. Congestive heart failure, clinically much improved, currently on IV diuretics.
[2017-07-05] MEDS ORDERED: Potassium Chloride 40 MEQ in Premix Bag 1 BAG IVPB SCH (12:15)
--- NOTE | 2017-07-05 14:03 | PRG ---
DATE OF SERVICE: 07/05/2017 SUBJECTIVE: This morning, she is better. She was extubated though she is still weak. She has got a cough. Speech to see her today regarding swallow study. OBJECTIVE: VITAL SIGNS: Blood pressure 140/38, respiratory rate 18. I's and O's 856 in, 527 out. CHEST: Chest reveals bilateral rhonchi. CARDIAC: Sinus tachycardia. ABDOMEN: Soft, no masses. LABORATORY: White count 4000, H and H 8 and 25, platelet count is low at 79, creatinine 2.3, BUN 59. Sodium 150. X-ray shows bilateral pleural effusion, cardiomegaly. IMPRESSION: Respiratory failure, bilateral pleural effusion, renal failure, severe deconditioning. Continue antibiotics. Continue Lasix. Supportive care. We will follow.
[2017-07-06 05:04] LABS: Anion Gap 13 mmol/L (10-20); BUN (Urea Nitrogen) 51 mg/dL (9.8-20.1); Calc. Creatinine Clearance 28 mL/min (70-130); Calcium 8.6 mg/dL (7.8-10.44); Carbon Dioxide 36 mmol/L (23-31); Chloride 98 mmol/L (98-107); Estimated GFR-MDRD 26; Glucose 80 mg/dL (83-110); Potassium 3.1 mmol/L (3.5-5.1); Sodium 144 mmol/L (136-145)
[2017-07-06 05:20] LABS: #Eosinphils 0.8 thou/uL (0.0-0.7); #Lymphocytes 1.7 thou/uL (1.20-3.40); #Monocytes 0.7 thou/uL (0.11-0.59); #Neutrophils 2.4 thou/uL (1.40-6.50); %Basophils 0.7 % (0.0-1.0); %Eosinophils 14.8 % (0.0-10.0); %Lymphocytes 29.7 % (21.0-51.0); %Monocytes 12.4 % (0.0-10.0); %Neutrophils 42.4 % (42.0-75.0); Hemoglobin 7.9 g/dL (12.0-16.0); Mean Corpuscular HGB CONC 30.4 g/dL (32.0-36.0); Mean Corpuscular Hemoglobin 28.8 pg (27.0-31.0); Mean Corpuscular Volume 94.7 fl (81.0-99.0); Mean Platelet Volume 8.1 fL (7.4-10.4); Platelet Count 89 thou/uL (130-400); RBC Distribution Width 21.3 % (11.5-14.5); Red Blood Cell (RBC) Count 2.75 mill/uL (4.20-5.40); White Blood Cell (WBC) Count 5.6 thou/uL (4.8-10.8)
[2017-07-06] MEDS: Furosemide 40 MG/4 ML VIAL SLOW IVP SCH ×2 (05:21→13:09)
--- NOTE | 2017-07-06 08:09 | RAD ---
CHEST 1 VIEW: HISTORY: Dyspnea. Followup. COMPARISON: 07/05/17. FINDINGS: Cardiac silhouette remains magnified, enlarged, and partially obscured by bibasilar infiltrates and p leural fluid that have increased slightly since the previous exam. Pulmonary vasculature remains eng orged. Mediastinum is midline with postoperative changes, aortic calcification, and a right subclavi an central venous catheter. No evidence of pneumothorax. IMPRESSION: Slight interval worsening in radiographic appearance of pulmonary edema. POS: H
--- NOTE | 2017-07-06 09:52 | PDOC.PULPN ---
Progress Note: Subj/Obj - Subjective Date: 07/06/17 Time: 09:51 - ROS All systems: reviewed and no additional remarkable complaints except as stated Respiratory: congestion - Objective Allergies/Adverse Reactions: Allergies Allergy/AdvReac Type Severity Reaction Status Date / Time naproxen sodium [From Aleve] Allergy Mild Verified 06/09/17 01:43 hydrocodone Allergy Verified 06/21/17 14:28 Medications: Current Medications Acetaminophen (Tylenol) 650 mg PO Q4H PRN PRN Reason: Headache/Fever or Pain Acetaminophen (Tylenol) 650 mg NC Q4H PRN PRN Reason: Headache/Fever or Pain Albuterol/Ipratropium (Duoneb) 3 ml NEB [id number] [facility] Last Admin: 07/06/17 07:44 Dose: 3 ml Bisacodyl (Dulcolax) 10 mg PO DAILYPRN PRN PRN Reason: Constipation Last Admin: 07/05/17 13:04 Dose: 10 mg Bisacodyl (Dulcolax) 10 mg NC Q24H PRN PRN Reason: Constipation Carvedilol (Coreg) 3.125 mg PO BID-WM [facility] Dextrose/Water (Dextrose 50%) 25 gm SLOW IVP PRN PRN PRN Reason: Hypoglycemia Furosemide (Lasix) 60 mg SLOW IVP 0600,1400 [facility] Glucagon (Glucagon) 1 mg IM PRN PRN PRN Reason: Hypoglycemia Dextrose/Water (D5w) 1,000 mls @ 0 mls/hr IV .Q0M PRN; As Directed PRN Reason: Hypoglycemia Cefepime HCl 1 gm/Miscellaneous Medication 1 each/ Sterile Water 10 mls @ 120 mls/hr SLOW IVP 0830 [facility] Last Admin: 07/05/17 08:08 Dose: 10 mls Potassium Chloride 40 meq/ (Device) 100 mls @ 25 mls/hr IVPB ONE [facility] Insulin Human Lispro (Humalog) 0 units SC .MILD SLIDING SCALE PRN PRN Reason: Mild Correctional Scale Last Admin: 07/04/17 04:23 Dose: 2 unit Sodium Chloride (Flush - Normal Saline) 10 ml IVF Q12HR [facility] Last Admin: 07/05/17 22:19 Dose: Not Given Sodium Chloride (Flush - Normal Saline) 10 ml IVF PRN PRN PRN Reason: Saline Flush Last Admin: 07/05/17 15:14 Dose: 10 ml MAR Reviewed: Yes Vital Signs: Vital Signs Temp 98.0 F 07/06/17 03:33 Pulse 71 07/06/17 07:44 Resp 16 07/06/17 07:44 BP 158/71 H 07/06/17 03:33 Pulse Ox 97 07/06/17 07:44 Intake & Output 07/05/17 07/06/17 07/06/17 18:59 06:59 18:59 Intake Total 1300 200 Output Total 1974 1500 Balance -675 -1300 Weight 150 lb 12.8 oz Intake: Intake, IV Amount 170 Cefepime 1 gm Admixture 10 Fee 1 each In Sterile Water 10 ml @ 120 mls/hr SLOW IVP 0830 [facility] Rx#: [id number] Sodium Chloride 0.9% 10 160 ml IVF Q12HR [facility] Rx#: [id number] Oral 1130 200 Output: Output, Trev[place] 1974 1500 Other: Voiding Method Indwelling Catheter Indwelling Catheter # Bowel Movements 1 1 Progress Note: Exam - Physical Exam Constitutional: NAD HEENT: PERRLA, sclera anicteric Neck: no nodes, no JVD Cardiovascular: RRR Focused Respiratory Location: decreased breath sounds: Right, Left, dullness to percussion: Right, Left Gastrointestinal: soft, non-tender Musculoskeletal: edema present Neurological: non-focal, normal sensation, moves all 4 limbs Lymphatic: no nodes Psychiatric: normal affect, A&O x 3 Skin: no rash - Labs Result Diagrams: 07/06/17 04:11 07/06/17 04:11 Lab results: Laboratory Results - last 24 hr 07/05/17 07/05/17 07/05/17 10:34 18:26 20:07 WBC RBC Hgb Hct MCV MCH MCHC RDW Plt Count MPV Neutrophils % Neutrophils % (Manual) Lymphocytes % Monocytes % Eosinophils % Basophils % Neutrophils # Lymphocytes # Monocytes # Eosinophils # Basophils # Sodium Potassium Chloride Carbon Dioxide Anion Gap BUN Creatinine Estimated GFR (MDRD) Glucose POC Glucose 87 226 H 267 H Calcium 07/06/17 07/06/17 04:11 04:11 WBC 5.6 RBC 2.75 L Hgb 7.9 L Hct 26.1 L MCV 94.7 MCH 28.8 MCHC 30.4 L RDW 21.3 H Plt Count 89 L MPV 8.1 Neutrophils % 42.4 Neutrophils % (Manual) Not Reportable Lymphocytes % 29.7 Monocytes % 12.4 H Eosinophils % 14.8 H Basophils % 0.7 Neutrophils # 2.4 Lymphocytes # 1.7 Monocytes # 0.7 H Eosinophils # 0.8 H Basophils # 0.0 Sodium 144 Potassium 3.1 L Chloride 98 Carbon Dioxide 36 H Anion Gap 13 BUN 51 H Creatinine 1.87 H Estimated GFR (MDRD) 26 Glucose 80 L POC Glucose Calcium 8.6 Progress Note: A/P - Problems (1) Acute respiratory failure Current Visit: Yes Status: Acute Code(s): J96.00 - ACUTE RESPIRATORY FAILURE , UNSP W HYPOXIA OR HYPERCAPNIA (2) Healthcare associated bacterial pneumonia Current Visit: Yes Status: Acute Code(s): J15.9 - UNSPECIFIED BACTERIAL PNEUMONIA (3) Acute on chronic diastolic (congestive) heart failure Current Visit: No Status: Acute Code(s): I50.33 - ACUTE ON CHRONIC DIASTOLIC (CONGESTIVE) HEART FAILURE (4) Acute renal failure (ARF) Current Visit: No Status: Acute Qualifiers: Acute renal failure type: with acute tubular necrosis Qualified Code(s): N17.0 - Acute kidney failure with tubular necrosis - Plan Plan: Needs further diuresis Continue cefipime for now increase activity
[2017-07-06] MEDS: Cefepime 1 GM, Admixture Fee 1 EACH in Sterile Water 10 ML SLOW IVP SCH (09:55)
--- NOTE | 2017-07-06 10:01 | PRG ---
DATE OF SERVICE: 07/06/2017 SUBJECTIVE: Ms. Sung is doing better. She is breathing better. No chest pain or pressure. PHYSICAL EXAMINATION: VITAL SIGNS: Blood pressure high 150/71, pulse 80 and its regular. LUNGS: Clearer. CARDIAC: Normal S1 and S2. ASSESSMENT: 1. Status post bypass surgery. 2. Diastolic congestive heart failure. 3. Renal failure is improving with a creatinine of 1.87. 4. Hypokalemia, being treated. PLAN: 1. Add low dose carvedilol. 2. Replete potassium. 3. Increase diuretics. 4. Check iron levels tomorrow.
[2017-07-06] MEDS ORDERED: Potassium Chloride 40 MEQ in Sodium Chloride 0.9% 500 ML IVPB SCH (11:00)
[2017-07-06 13:31] VITALS: BMI 25.9
--- NOTE | 2017-07-06 13:44 | PDOC.PN ---
- Subjective Encounter Start Date: 07/06/17 Encounter Start Time: 09:00 Pt seen for followup re: acute respiratory failure. Now on telemetry floor. Denies chest pain, shortness of breath, fevers or chills. Cough+ - Objective Resuscitation Status: Resuscitation Status FULL:Full Resuscitation MAR Reviewed: Yes Vital Signs & Weight: Vital Signs (12 hours) Temp Pulse Resp BP Pulse Ox 07/06/17 11:05 98.1 F 70 16 162/67 H 96 07/06/17 07:44 71 16 97 07/06/17 03:33 98.0 F 80 17 158/71 H 98 Weight Admit Weight 185 lb 13.595 oz Weight 150 lb 12.8 oz Most Recent Monitor Data Heart Rate from ECG 73 NIBP 137/52 NIBP BP-Mean 63 Respiration from ECG 17 SpO2 97 I&O: 07/05/17 07/06/17 07/07/17 06:59 06:59 06:59 Intake Total 383 1500 Output Total 3515 5155 -3131 Result Diagrams: 07/06/17 04:11 07/06/17 04:11 Additional Labs: Accuchecks 07/06/17 07/05/17 07/05/17 11:05 20:07 18:26 POC Glucose 166 H 267 H 226 H EKG Reviewed by me: Yes Phys Exam - Physical Examination Constitutional: NAD HEENT: moist MMs Neck: supple Respiratory: no wheezing Bibasal crackles Cardiovascular: RRR Gastrointestinal: soft Musculoskeletal: pulses present Neurological: moves all 4 limbs Psychiatric: normal affect Dx/Plan (1) Acute respiratory failure Code(s): J96.00 - ACUTE RESPIRATORY FAILURE, UNSP W HYPOXIA OR HYPERCAPNIA Status: Acute (2) Healthcare associated bacterial pneumonia Code(s): J15.9 - UNSPECIFIED BACTERIAL PNEUMONIA Status: Acute (3) Acute on chronic diastolic (congestive) heart failure Code(s): I50.33 - ACUTE ON CHRONIC DIASTOLIC (CONGESTIVE) HEART FAILURE Status : Acute Comment: Diuresed and feeling better. Increasing Coreg (4) CKD (chronic kidney disease) Code(s): N18.9 - CHRONIC KIDNEY DISEASE, UNSPECIFIED Status: Chronic (5) Coronary artery disease Code(s): I25.10 - ATHSCL HEART DISEASE OF [place] CORONARY ARTERY W/O ANG PCTRS Status: Chronic Qualifiers: Coronary Disease-Associated Artery/Lesion type: [place] artery (6) Diabetes type 2, controlled Code(s): E11.9 - TYPE 2 DIABETES MELLITUS WITHOUT COMPLICATIONS Status: Chronic (7) Hypertension Code(s): I10 - ESSENTIAL (PRIMARY) HYPERTENSION Status: Chronic (8) Hypothyroidism Code(s): E03.9 - HYPOTHYROIDISM, UNSPECIFIED Status: Chronic - Plan plan discussed w/ family, continue antibiotics, PT/OT, out of bed/ambulate * . Creatinine improving. Continue furosemide, cefepime. Ambulate patient. Review of Systems - Review of Systems Respiratory: Cough. negative: Dry, Shortness of Breath, Hemoptysis, SOB with Excertion, Pleuritic Pain, Sputum, Wheezing Cardiovascular: negative: chest pain, palpitations, orthopnea, paroxysmal nocturnal dyspnea, edema, light headedness - Medications/Allergies Allergies/Adverse Reactions: Allergies Allergy/AdvReac Type Severity Reaction Status Date / Time naproxen sodium [From Aleve] Allergy Mild Verified 06/09/17 01:43 hydrocodone Allergy Verified 06/21/17 14:28 Medications: Current Medications Acetaminophen (Tylenol) 650 mg PO Q4H PRN PRN Reason: Headache/Fever or Pain Acetaminophen (Tylenol) 650 mg [place] Q4H PRN PRN Reason: Headache/Fever or Pain Albuterol/Ipratropium (Duoneb) 3 ml NEB [id number] Last Admin: 07/06/17 07:44 Dose: 3 ml Bisacodyl (Dulcolax) 10 mg PO DAILYPRN PRN PRN Reason: Constipation Last Admin: 07/05/17 13:04 Dose: 10 mg Bisacodyl (Dulcolax) 10 mg LA Q24H PRN PRN Reason: Constipation Carvedilol (Coreg) 3.125 mg PO BID-[facility] Dextrose/Water (Dextrose 50%) 25 gm SLOW IVP PRN PRN PRN Reason: Hypoglycemia Furosemide (Lasix) 60 mg SLOW IVP 0600,1400 [facility] Last Admin: 07/06/17 13:09 Dose: 60 mg Glucagon (Glucagon) 1 mg IM PRN PRN PRN Reason: Hypoglycemia Dextrose/Water (D5w) 1,000 mls @ 0 mls/hr IV .Q0M PRN; As Directed PRN Reason: Hypoglycemia Cefepime HCl 1 gm/Miscellaneous Medication 1 each/ Sterile Water 10 mls @ 120 mls/hr SLOW IVP 0830 [facility] Last Admin: 07/06/17 09:55 Dose: 10 mls Insulin Human Lispro (Humalog) 0 units SC .MILD SLIDING SCALE PRN PRN Reason: Mild Correctional Scale Last Admin: 07/04/17 04:23 Dose: 2 unit Sodium Chloride (Flush - Normal Saline) 10 ml IVF Q12HR [facility] Last Admin: 07/06/17 09:57 Dose: 10 ml Sodium Chloride (Flush - Normal Saline) 10 ml IVF PRN PRN PRN Reason: Saline Flush Last Admin: 07/05/17 15:14 Dose: 10 ml
[2017-07-06] MEDS: Carvedilol 3.125 MG TAB PO SCH (20:02)
[2017-07-07 05:47] LABS: BUN (Urea Nitrogen) 41 mg/dL (9.8-20.1); Calc. Creatinine Clearance 32 mL/min (70-130); Calcium 8.4 mg/dL (7.8-10.44); Estimated GFR-MDRD 32; Glucose 108 mg/dL (83-110)
[2017-07-07 05:56] LABS: Anion Gap 14 mmol/L (10-20); Carbon Dioxide 36 mmol/L (23-31); Chloride 97 mmol/L (98-107); Potassium 3.1 mmol/L (3.5-5.1); Sodium 144 mmol/L (136-145)
[2017-07-07] MEDS: Furosemide 40 MG/4 ML VIAL SLOW IVP SCH ×2 (06:02→15:05)
--- NOTE | 2017-07-07 09:21 | PRG ---
DATE OF SERVICE: 07/07/2017 SERVICE: Renal Medicine. SUBJECTIVE: Ms. Sung is a 77-year-old female who was seen by the Renal Service for acute k idney injury secondary to acute tubular necrosis. She was recently re-admitted for CHF. She has bee n diuresed. She is doing well. Renal function is slowly improving over time. Congestive heart failure is much improved. PHYSICAL EXAMINATION: VITAL SIGNS: Blood pressure is 154/70, heart rate 69, respiratory rate 16, temperature 98.2, pulse o x 94%. GENERAL: Awake, sitting comfortable, not in distress. SKIN: Adequate turgor. HEENT: Slightly pale conjunctivae, anicteric sclerae. NECK: No neck mass, no carotid bruits, no JVD. CHEST: No deformities. LUNGS: Decreased breath sounds. HEART: Normal sinus rhythm. No murmur, no gallops or rubs. ABDOMEN: Globular, soft, nontender, no masses. EXTREMITIES: Trace edema, no deformities. MEDICATIONS: Of 07/07/2017 was reviewed. LABORATORY DATA: Of 07/07/2017, sodium 144, potassium 3.1, chloride 97, carbon dioxide 36, BUN 41, c reatinine 1.58, GFR 32 mL per minute, calcium 8.4. ASSESSMENT AND PLAN: 1. Acute kidney injury/chronic renal failure - superimposed acute tubular necrosis, slowly improving . Continuing diuresis - she seems to be tolerating the current diuretic regimen. 2. Congestive heart failure, clinically much improved. The patient is currently on IV Lasix 60 mg I V q.12 hours. In the near future, consider decreasing Lasix to 40 mg IV q.12 hours once the congesti ve heart failure is completely resolved. 3. Chronic renal failure, possibility of underlying diabetic nephropathy remains with this patient. Continue supportive care. We will be rechecking a basic met and CBC in a.m.
[2017-07-07] MEDS: Carvedilol 3.125 MG TAB PO SCH ×2 (10:00→16:51)
[2017-07-07] MEDS: Cefepime 1 GM, Admixture Fee 1 EACH in Sterile Water 10 ML SLOW IVP SCH (10:01)
--- NOTE | 2017-07-07 11:05 | PDOC.PN ---
- Subjective Encounter Start Date: 07/07/17 Encounter Start Time: 08:00 Pt seen for followup re: acute respiratory failure. Feels better. No shortness of breath. - Objective Resuscitation Status: Resuscitation Status FULL:Full Resuscitation MAR Reviewed: Yes Vital Signs & Weight: Vital Signs (12 hours) Temp Pulse Resp BP Pulse Ox 07/07/17 08:38 96 07/07/17 08:35 69 16 07/07/17 04:32 94 L 07/07/17 04:00 98.2 F 72 16 154/70 H 94 L 07/07/17 02:00 98 07/07/17 00:10 98 07/07/17 00:00 98.1 F 75 18 157/65 H 98 Weight Admit Weight 185 lb 13.595 oz Weight 149 lb 4.8 oz Most Recent Monitor Data Heart Rate from ECG 73 NIBP 137/52 NIBP BP-Mean 63 Respiration from ECG 17 SpO2 97 I&O: 07/06/17 07/07/17 07/08/17 06:59 06:59 06:59 Intake Total 1500 2064 Output Total 3470 3429 Balance -1974 -1364 Result Diagrams: 07/06/17 04:11 07/07/17 04:34 Additional Labs: Accuchecks 07/07/17 07/06/17 07/06/17 05:47 20:31 16:30 POC Glucose 105 231 H 209 H 07/06/17 11:05 POC Glucose 166 H EKG Reviewed by me: Yes (Tele: NSR) Phys Exam - Physical Examination Constitutional: NAD HEENT: moist MMs Neck: supple Respiratory: clear to auscultation bilateral Cardiovascular: RRR Gastrointestinal: soft Neurological: moves all 4 limbs Psychiatric: normal affect Dx/Plan (1) Acute respiratory failure Code(s): J96.00 - ACUTE RESPIRATORY FAILURE, UNSP W HYPOXIA OR HYPERCAPNIA Status: Acute (2) Healthcare associated bacterial pneumonia Code(s): J15.9 - UNSPECIFIED BACTERIAL PNEUMONIA Status: Acute (3) Acute on chronic diastolic (congestive) heart failure Code(s): I50.33 - ACUTE ON CHRONIC DIASTOLIC (CONGESTIVE) HEART FAILURE Status : Acute Comment: Diuresed and feeling better. Increasing Coreg (4) CKD (chronic kidney disease) Code(s): N18.9 - CHRONIC KIDNEY DISEASE, UNSPECIFIED Status: Chronic (5) Coronary artery disease Code(s): I25.10 - ATHSCL HEART DISEASE OF [place] CORONARY ARTERY W/O ANG PCTRS Status: Chronic Qualifiers: Coronary Disease-Associated Artery/Lesion type: [place] artery (6) Diabetes type 2, controlled Code(s): E11.9 - TYPE 2 DIABETES MELLITUS WITHOUT COMPLICATIONS Status: Chronic (7) Hypertension Code(s): I10 - ESSENTIAL (PRIMARY) HYPERTENSION Status: Chronic (8) Hypothyroidism Code(s): E03.9 - HYPOTHYROIDISM, UNSPECIFIED Status: Chronic - Plan plan discussed w/ family, continue antibiotics, PT/OT, out of bed/ambulate * . Creatinine slowly improving. Continue diuretics and antibiotics. Ambulate patient. Continue accuchecks, insulin sliding scale. Review of Systems - Review of Systems Respiratory: negative: Cough, Dry, Shortness of Breath, Hemoptysis, SOB with Excertion, Pleuritic Pain, Sputum, Wheezing Cardiovascular: negative: chest pain, palpitations, orthopnea, paroxysmal nocturnal dyspnea, edema, light headedness - Medications/Allergies Allergies/Adverse Reactions: Allergies Allergy/AdvReac Type Severity Reaction Status Date / Time naproxen sodium [From Aleve] Allergy Mild Verified 06/09/17 01:43 hydrocodone Allergy Verified 06/21/17 14:28 Medications: Current Medications Acetaminophen (Tylenol) 650 mg PO Q4H PRN PRN Reason: Headache/Fever or Pain Acetaminophen (Tylenol) 650 mg FL Q4H PRN PRN Reason: Headache/Fever or Pain Albuterol/Ipratropium (Duoneb) 3 ml NEB [id number] [facility] Last Admin: 07/07/17 08:35 Dose: 3 ml Bisacodyl (Dulcolax) 10 mg PO DAILYPRN PRN PRN Reason: Constipation Last Admin: 07/05/17 13:04 Dose: 10 mg Bisacodyl (Dulcolax) 10 mg FL Q24H PRN PRN Reason: Constipation Carvedilol (Coreg) 3.125 mg PO BID-F [facility] Last Admin: 07/07/17 10:00 Dose: 3.125 mg Dextrose/Water (Dextrose 50%) 25 gm SLOW IVP PRN PRN PRN Reason: Hypoglycemia Furosemide (Lasix) 60 mg SLOW IVP 0600,1400 [facility] Last Admin: 07/07/17 06:02 Dose: 60 mg Glucagon (Glucagon) 1 mg IM PRN PRN PRN Reason: Hypoglycemia Dextrose/Water (D5w) 1,000 mls @ 0 mls/hr IV .Q0M PRN; As Directed PRN Reason: Hypoglycemia Cefepime HCl 1 gm/Miscellaneous Medication 1 each/ Sterile Water 10 mls @ 120 mls/hr SLOW IVP 0830 [facility] Last Admin: 07/07/17 10:01 Dose: 10 mls Insulin Human Lispro (Humalog) 0 units SC .MILD SLIDING SCALE PRN PRN Reason: Mild Correctional Scale Last Admin: 07/04/17 04:23 Dose: 2 unit Sodium Chloride (Flush - Normal Saline) [address] [facility] Last Admin: 07/07/17 10:06 Dose: 10 ml Sodium Chloride (Flush - Normal Saline) 10 ml IVF PRN PRN PRN Reason: Saline Flush Last Admin: 07/05/17 15:14 Dose: 10 ml
--- NOTE | 2017-07-07 12:50 | PRG ---
DATE OF SERVICE: 07/07/2017 SUBJECTIVE: Ms. Sung is feeling better, breathing is improved. She is diuresing well with furosemide, no chest pain or pressure. OBJECTIVE: VITAL SIGNS: Blood pressure 154/70, pulse 70 regular. LUNGS: Clear. CARDIAC: Normal S1, normal S2 with the same soft murmur. ABDOMEN: Soft and nontender. ASSESSMENT: 1. Congestive heart failure, diastolic, improved. 2. Hypertension, improved. 3. Hypokalemia, potassium is 3.1. PLAN: 1. Replete potassium. 2. Continue diuretic therapy. 3. Check iron levels. May need intravenous iron. She is anemic and she was iron deficient last thu.
[2017-07-07] MEDS ORDERED: Potassium Chloride 40 MEQ in Sodium Chloride 0.9% 500 ML IVPB SCH (13:00)
--- NOTE | 2017-07-07 13:00 | PRG ---
DATE OF SERVICE: 07/07/2017 SUBJECTIVE: This patient has improved. Her mental status is back to normal. She had no complaints today. PHYSICAL EXAMINATION: VITAL SIGNS: Temperature is 98.2, pulse 69, respirations 16, O2 sat 96% on 2 liters. HEENT: Unremarkable. NECK: Without adenopathy or JVD. CHEST: Clear without wheezing. CARDIAC: S1 and S2 regular. ABDOMEN: Soft. EXTREMITIES: No edema. LABORATORY DATA: Sodium 144, potassium 3.1, chloride 97, CO2 36, BUN 41, creatinine 1.5, glucose 108 . ASSESSMENT: 1. Acute respiratory failure which has resolved. 2. Health care associated bacterial pneumonia. 3. Acute on chronic diastolic heart failure. 4. Acute renal failure. RECOMMENDATIONS: The patient is approaching the time where she can go back to rehabilitation. I robbie l go ahead and switch her over to oral antibiotic medication. I will complete a total of 10 days of antibiotics between inpatient and outpatient. There do not appear to be in any other pressing pulmon elaine issues. I will sign off. Please recall if further assistance is needed.
[2017-07-07] MEDS: HumaLOG 300 UNITS/3 ML VIAL SC PRN (18:13)
[2017-07-08 05:02] LABS: #Eosinphils 0.6 thou/uL (0.0-0.7); #Monocytes 0.7 thou/uL (0.11-0.59); #Neutrophils 2.6 thou/uL (1.40-6.50); %Basophils 0.8 % (0.0-1.0); %Eosinophils 10.1 % (0.0-10.0); %Lymphocytes 33.6 % (21.0-51.0); %Monocytes 11.9 % (0.0-10.0); %Neutrophils 43.6 % (42.0-75.0); Hemoglobin 8.6 g/dL (12.0-16.0); Mean Corpuscular HGB CONC 30.4 g/dL (32.0-36.0); Mean Corpuscular Hemoglobin 28.3 pg (27.0-31.0); Mean Corpuscular Volume 93.2 fl (81.0-99.0); Mean Platelet Volume 7.7 fL (7.4-10.4); Platelet Count 95 thou/uL (130-400); RBC Distribution Width 20.6 % (11.5-14.5); Red Blood Cell (RBC) Count 3.04 mill/uL (4.20-5.40)
[2017-07-08 05:25] LABS: Anion Gap 13 mmol/L (10-20); BUN (Urea Nitrogen) 35 mg/dL (9.8-20.1); Calc. Creatinine Clearance 36 mL/min (70-130); Calcium 8.2 mg/dL (7.8-10.44); Carbon Dioxide 37 mmol/L (23-31); Chloride 94 mmol/L (98-107); Estimated GFR-MDRD 36; Glucose 96 mg/dL (83-110); Iron 39 ug/dL (50-170); Potassium 3.4 mmol/L (3.5-5.1); Sodium 141 mmol/L (136-145)
[2017-07-08] MEDS: Furosemide 40 MG/4 ML VIAL SLOW IVP SCH (06:11)
[2017-07-08] MEDS ORDERED: Potassium Chloride 20 MEQ TAB PO SCH ×2 (08:00→12:00)
[2017-07-08] MEDS ORDERED: Iron Sucrose Complex 200 MG in Sodium Chloride 0.9% 250 ML 250 ML IVPB SCH (08:15)
[2017-07-08] MEDS ORDERED: SODIUM FERRIC GLUCONATE IVPB SCH (09:00)
[2017-07-08] MEDS ORDERED: Cefdinir 300 MG CAP PO SCH (09:00)
[2017-07-08] MEDS ORDERED: SODIUM CHLORIDE 0.9% IVPB SCH (09:00)
[2017-07-08] MEDS: Carvedilol 3.125 MG TAB PO SCH (09:39)
--- NOTE | 2017-07-08 10:07 | PRG ---
DATE OF SERVICE: 07/08/2017 SUBJECTIVE: Ms. Sung is a 77-year-old female who is status post CABG and admitted for CHF. She was subsequently diuresed. She is doing better with the CHF. She is followed up by the Renal Service for her acute kidney injury secondary to a presumed acute tubular necrosis. Renal function i s now dramatically improved. Her most recent creatinine shows a value of 1.4, which is nearing basel ine. This morning she voices no new complaints. No worsening chest pain or any shortness of breath. PHYSICAL EXAMINATION: VITAL SIGNS: Blood pressure 165/74, heart rate 79, respiratory rate 16, temperature 98.1, pulse ox 9 4%. GENERAL: Awake, alert, comfortable, not in distress. SKIN: Adequate turgor. HEENT: She has pinkish conjunctivae, anicteric sclerae. NECK: No neck mass, no carotid bruits, no JVD. CHEST: No deformities. LUNGS: Decreased breath sounds. HEART: Normal sinus rhythm. No murmurs, no gallops or rubs. ABDOMEN: Globular, soft, nontender, no masses. EXTREMITIES: Trace edema. MEDICATIONS: 07/08/2017 - Reviewed. LABORATORY: 07/08/2017 - White count 6, hemoglobin 8.6, sodium 141, potassium 3.4, chloride 94, car bon dioxide 37, BUN 35, creatinine 1.4, glucose 96, calcium 8.2, iron 39. ASSESSMENT AND PLAN: 1. Acute kidney injury - secondary to a superimposed acute tubular necrosis, stabilizing renal funct ion. Tolerating current dose of furosemide. 2. Anemia. Currently, patient is on iron supplementation. 3. Congestive heart failure, clinically much improved. Continuing IV Lasix. 4. Mild hypokalemia on potassium supplementation. Check base met and CBC in a.m.
[2017-07-08] MEDS ORDERED: Amlodipine 5 MG TAB PO SCH (12:00)
--- NOTE | 2017-07-08 12:30 | PRG ---
DATE OF SERVICE: 07/08/2017 Ms. Sung is doing much better today. She is up and around and feels better. PHYSICAL EXAMINATION: VITAL SIGNS: Blood pressure is high 165/74, pulse 80, it is regular. LUNGS: Clear. CARDIAC: Normal S1 and S2. ABDOMEN: Soft, nontender. EXTREMITIES: There is no edema. Iron studies reveal she is still iron deficient. Potassium was 3.4. ASSESSMENT: 1. Diastolic heart failure, improved. 2. Hypertension. PLAN: 1. We will increase carvedilol to 6.25 mg twice daily. 2. We will hold off on RONALDO inhibitors. She has renal failure and the RONALDO inhibitors probably contri buted. 3. Reduce diuretic dose when she leaves. Will drop her down to 40 mg twice a day orally. 4. Add amlodipine. 5. She will be ready to be discharged.
[2017-07-08] MEDS: HumaLOG 300 UNITS/3 ML VIAL SC PRN (12:54)
[2017-07-08] MEDS ORDERED: Furosemide 40 MG TAB PO SCH (14:00)
[2017-07-08 16:46] VITALS: BP 140/63; TEMP 98.6
--- NOTE | 2017-07-08 19:12 | DIS ---
DATE OF ADMISSION: 07/01/2017 DATE OF DISCHARGE: 07/08/2017. PRIMARY CARE PHYSICIAN: Diallo Bauer M.D. DISCHARGE DIAGNOSES: 1. Acute respiratory failure. 2. Acute on chronic diastolic congestive heart failure. 3. Possible Healthcare-associated bacterial pneumonia. 4. Chronic renal insufficiency, improving. CONDITION OF PATIENT ON THE DAY OF DISCHARGE: Stable. I assessed Ms. Sung on the day of discharge. She denies any chest pain or shortness of breath. Vital signs are stable. S1 and S2 are heard, re gular. Lungs are clear to auscultation bilaterally. HOSPITAL COURSE: Ms. Sung is a pleasant 77-year-old lady who was admitted to [facility] on 07/01/2017 to the critical care unit following intubation for acute respiratory failur e. She had hypercapnic respiratory failure at the time of admission. Please refer to history and ph ysical note from 07/01/2017 for further information. She was seen by Cardiology, Dr. Roberson, Pulmonology Dr. Molina, Nephrology Dr. Gong, and Neurology Dr Beka Atwood. She had an EEG on 06/28/2017, which showed severe slowing and suppression over both hemis pheres consistent with a diffuse encephalopathic process. She was treated aggressively with intravenous diuretics. She was also started on antibiotics for pos sible healthcare-associated pneumonia since she was recently hospitalized. She continued to improve clinically. She was extubated on 07/05/2017. She was transferred to the [facility] subsequently and continued to do well. She is being discharged to swing bed for further manageme nt. She also had renal insufficiency, with a creatinine of 3.41 at the time of admission. It improved to 1.40 on the day of discharge. Her metformin and lisinopril were discontinued. She is currently on Accu-Cheks and insulin sliding scale. Her Coreg dose was increased during this hospitalization to 6. 25 mg 2 times a day. She is also being discharged on Omnicef 600 mg daily for 5 more days to [facility] e a 10-day course. She was found to have low iron and received iron sucrose infusion on the day of discharge. On the day of discharge, she has sodium of 141, potassium 3.4, blood urea nitrogen 35, creatinine 1.4 0, white count 6000, hemoglobin 8.6, and platelet count 95,000. DISCHARGE MEDICATIONS: Humira 40 mg subcutaneously every 2 weeks, Proventil HFA 2 puffs every 6 hour s as needed, Norvasc 5 mg daily, aspirin 325 mg daily, Coreg 6.25 mg 2 times a day, Omnicef 600 mg da michel for 5 days, Pepcid 20 mg daily, iron 325 mg daily, Lasix 40 mg 2 times a day, DuoNebs p.r.n., Syn throid 88 mcg daily, potassium chloride 10 mEq 2 times a day, Crestor 10 mg at bedtime. Many thanks for allowing me to participate in your patient's care. Please feel free to contact me wi th any questions or concerns. DISCHARGE DESTINATION: Swing bed at [facility]. TOTAL AMOUNT OF TIME SPENT COORDINATING THIS DISCHARGE: 38 minutes.
[2017-07-09] MEDS ORDERED: Potassium Chloride 10 MEQ TAB PO SCH (08:00)
[2017-07-09] MEDS ORDERED: Amlodipine 5 MG TAB PO SCH (09:00)
[2017-07-09] MEDS ORDERED: Carvedilol 6.25 MG TAB PO SCH (17:00)
== END 2017-07-08 18:14 | disposition swing bed (61) | DRG 208 ==
LOC: ERS 17:01 → CCU 20:10 → UNDODISIN 07-02 15:40 → 2NO 07-05 14:37
PROVIDERS: ADMIT Internal Medicine; ATTEND Internal Medicine
PROC: 5A1945Z Respiratory Ventilation, 24-96 Consecutive Hours (ICD-10-PCS; principal; 2017-07-01)
PROC: 0BH17EZ Insertion of Endotracheal Airway into Trachea, Via Natural or Artificial Opening (ICD-10-PCS; 2017-07-01)
PROC: 02HV33Z Insertion of Infusion Device into Superior Vena Cava, Percutaneous Approach (ICD-10-PCS; 2017-07-01)
DX: J96.02 Acute respiratory failure with hypercapnia (principal); N17.0 Acute kidney failure with tubular necrosis; I21.4 Non-ST elevation (NSTEMI) myocardial infarction; I50.33 Acute on chronic diastolic (congestive) heart failure; J15.9 Unspecified bacterial pneumonia; G93.41 Metabolic encephalopathy; D61.818 Other pancytopenia; E11.22 Type 2 diabetes mellitus with diabetic chronic kidney disease; E87.0 Hyperosmolality and hypernatremia; I13.0 Hypertensive heart and chronic kidney disease with heart failure and stage 1 through stage 4 chronic kidney disease, or unspecified chronic kidney disease; E87.5 Hyperkalemia; I95.9 Hypotension, unspecified; E87.6 Hypokalemia; I35.0 Nonrheumatic aortic (valve) stenosis; N18.9 Chronic kidney disease, unspecified; Z95.1 Presence of aortocoronary bypass graft; I25.10 Atherosclerotic heart disease of native coronary artery without angina pectoris; Y95 Nosocomial condition; R63.0 Anorexia; Z68.25 Body mass index [BMI] 25.0-25.9, adult; E78.5 Hyperlipidemia, unspecified; R40.2362 Coma scale, best motor response, obeys commands, at arrival to emergency department; R40.2132 Coma scale, eyes open, to sound, at arrival to emergency department; R40.2242 Coma scale, best verbal response, confused conversation, at arrival to emergency department
CPT/HCPCS: 31500; 36415; 36416; 36556; 51702; 70450; 71045; 80048; 80306; 81003; 81015; 82140; 82533; 82553; 82607; 82728; 82805; 83540; 83605; 83880; 84436; 84484; 85025; 87040; 87086; 93005; 93306; 93798; 94002; 94003; 94640; 95816; 95819; 96361; 96374; 96375; A4216; C1751; G8996-GN-CJ; G8997-GN-CI; J0692; J1815; J1940; J2270; J2704; J2916; J3480; J7050; J7620

== ENCOUNTER 2017-08-24 16:41 | Emergency (ER) | payer MEDICARE ==
[2017-08-24 17:20] LABS: #Basophils 0.1 thou/uL (0.0-0.2); #Eosinphils 0.3 thou/uL (0.0-0.7); #Lymphocytes 2.3 thou/uL (1.20-3.40); #Monocytes 0.7 thou/uL (0.11-0.59); #Neutrophils 2.4 thou/uL (1.40-6.50); %Basophils 1.7 % (0.0-1.0); %Eosinophils 5.3 % (0.0-10.0); %Lymphocytes 39.4 % (21.0-51.0); %Monocytes 12.2 % (0.0-10.0); %Neutrophils 41.4 % (42.0-75.0); Hemoglobin 11.2 g/dL (12.0-16.0); Mean Corpuscular HGB CONC 34.4 g/dL (32.0-36.0); Mean Corpuscular Hemoglobin 29.7 pg (27.0-31.0); Mean Corpuscular Volume 86.2 fl (81.0-99.0); Mean Platelet Volume 6.7 fL (7.4-10.4); Platelet Count 159 thou/uL (130-400); RBC Distribution Width 13.3 % (11.5-14.5); Red Blood Cell (RBC) Count 3.79 mill/uL (4.20-5.40); White Blood Cell (WBC) Count 5.7 thou/uL (4.8-10.8)
[2017-08-24 17:33] LABS: ALT (SGPT) 43 U/L (8-55); AST (SGOT) 51 U/L (5-34); Albumin 3.4 g/dL (3.4-4.8); Alkaline Phosphatase 119 U/L (40-150); Anion Gap 14 mmol/L (10-20); BUN (Urea Nitrogen) 40 mg/dL (9.8-20.1); Bilirubin, Total 0.5 mg/dL (0.2-1.2); Calc. Creatinine Clearance 0 mL/min (70-130); Calcium 9.5 mg/dL (7.8-10.44); Carbon Dioxide 23 mmol/L (23-31); Chloride 103 mmol/L (98-107); Estimated GFR-MDRD 38; Glucose 421 mg/dL (83-110); Potassium 3.7 mmol/L (3.5-5.1); Protein, Total 8.4 g/dL (6.0-8.3); Sodium 136 mmol/L (136-145)
[2017-08-24 17:35] LABS: CKMB 1.7 ng/mL (0-6.6); Troponin I 0.093 ng/mL (< 0.028)
[2017-08-24 17:54] LABS: Bilirubin Negative (Negative); Blood, Urine Trace (Negative); Clarity Hazy (Clear); Glucose, Urine (Dipstick) 500 mg/dL (Negative); Leukocyte Small (Negative); Nitrite Negative (Negative); Protein, Urine (Dipstick) 30 mg/dL (Neg-Trace); Urobilinogen 0.2 mg/dL (0.2-1.0); pH, Urine 6.5 (5.0-9.0)
[2017-08-24 17:57] LABS: RBC/HPF 0-3 HPF (0-3)
[2017-08-24 17:58] LABS: Bacteria/HPF 3+ HPF (None Seen)
[2017-08-24] MEDS ORDERED: Insulin Regular 300 UNITS/3 ML VIAL ONE (17:58)
[2017-08-24 18:01] LABS: Actual Bicarbonate (HCO3v) 23 mEq/L (22-26); Base Excess -2.4 mEq/L (0 (+/- 2.5)); Hematocrit-VBG 38.3 % (35-47); Hemoglobin (Hb) 12.1 g/dL (11.7-16.1); pH (venous) 7.36 (7.35-7.45)
[2017-08-24 18:02] LABS: Calcium, Ionized 1.17 mmol/L (1.16-1.32); Chloride (ABG LAB) 101 mmol/L (98-106); Potassium - ABG Lab 3.6 mmol/L (3.70-5.30); Sodium 136.8 mmol/L (133-146)
--- NOTE | 2017-08-24 18:52 | RAD ---
CHEST ONE VIEW: History: Nausea and vomiting. Cough. Comparison: 07-06-17 FINDINGS: The central venous catheter has been removed since the comparison examination. Interval improvement o f the layering effusion with only a small left effusion remaining. Right lung is relatively clear. Mediastinal wires are midline. There is calcification of the aorta. IMPRESSION: Interval improvement of the layering effusions, only a small left effusion remaining. Interval improv ement of interstitial edema. POS: [facility]
== END 2017-08-24 18:20 | disposition home or self-care (01) ==
LOC: SCSER 16:41
DX: N39.0 Urinary tract infection, site not specified (principal); E11.65 Type 2 diabetes mellitus with hyperglycemia; L40.9 Psoriasis, unspecified; I10 Essential (primary) hypertension; I25.10 Atherosclerotic heart disease of native coronary artery without angina pectoris; Z79.82 Long term (current) use of aspirin; Z79.899 Other long term (current) drug therapy
CPT/HCPCS: 36416; 71045; 80053; 81003; 81015; 82010; 82553; 82805; 84484; 85025; 93005; 96360; 96372; J1815

== ENCOUNTER 2017-09-03 13:40 | Emergency (ER) | payer MEDICARE | END 2017-09-03 14:46 | disposition home or self-care (01) | LOC: SCSER 13:40 | DX: E11.9 Type 2 diabetes mellitus without complications (principal); I10 Essential (primary) hypertension; I25.10 Atherosclerotic heart disease of native coronary artery without angina pectoris | CPT/HCPCS: 36416; 99284 ==

== ENCOUNTER 2017-09-09 13:34 | Emergency (ER) | payer MEDICARE ==
[2017-09-09 16:09] LABS: #Eosinphils 0.4 thou/uL (0.0-0.7); #Lymphocytes 2.2 thou/uL (1.20-3.40); #Monocytes 0.6 thou/uL (0.11-0.59); #Neutrophils 3.1 thou/uL (1.40-6.50); %Basophils 0.6 % (0.0-1.0); %Eosinophils 6.1 % (0.0-10.0); %Lymphocytes 34.9 % (21.0-51.0); %Neutrophils 48.5 % (42.0-75.0); Hemoglobin 11.5 g/dL (12.0-16.0); Mean Corpuscular HGB CONC 35.2 g/dL (32.0-36.0); Mean Corpuscular Hemoglobin 30.7 pg (27.0-31.0); Mean Platelet Volume 6.9 fL (7.4-10.4); Platelet Count 198 thou/uL (130-400); RBC Distribution Width 12.9 % (11.5-14.5); Red Blood Cell (RBC) Count 3.76 mill/uL (4.20-5.40); White Blood Cell (WBC) Count 6.4 thou/uL (4.8-10.8)
[2017-09-09 16:15] LABS: Base Excess-Venous -2.4 mmol/L (0 (+/- 2.5)); Bicarbonate (HCO3v) 22.5 mmol/L (1.0-85.0); CO2 Tension (PvCO2) 38.4 mmHg (41.0-51.0); Calcium, Ionized 1.21 mmol/L (1.12-1.32); Hemoglobin - Calc 11.4 g/dL (12.0-18.0); O2 Tension (PvO2) 34.9 mmHg (35.0-45.0); Potassium 4.6 mmol/L (3.4-4.7); T. Carbon Dioxide 23.7 mmol/L (1.0-85.0); pH (Venous) 7.376 (7.35-7.45); vO2 Saturation-calc 65.9 % (94-98)
[2017-09-09 16:15] LABS: INR-International Normal Ratio 1.1; Prothrombin Time 14.5 SEC (12.0-14.7)
--- NOTE | 2017-09-09 16:15 | RAD ---
PORTABLE UPRIGHT FRONTAL CHEST RADIOGRAPH: Date: 09/09/17 COMPARISON: 08/24/17. HISTORY: Weakness. FINDINGS: Cardiac silhouette is prominent. There is atherosclerotic calcification of the aortic arch. Midline s ternotomy wires and mediastinal clips are present. There is no pneumothorax, pleural fluid, focal con solidation, or alveolar edema. IMPRESSION: Stable appearance of the chest. No acute findings. POS: [facility]
[2017-09-09 16:32] LABS: ALT (SGPT) 27 U/L (8-55); AST (SGOT) 33 U/L (5-34); Albumin 3.7 g/dL (3.4-4.8); Alkaline Phosphatase 135 U/L (40-150); Anion Gap 16 mmol/L (10-20); BUN (Urea Nitrogen) 51 mg/dL (9.8-20.1); Bilirubin, Total 0.5 mg/dL (0.2-1.2); Calc. Creatinine Clearance 0 mL/min (70-130); Carbon Dioxide 21 mmol/L (23-31); Chloride 100 mmol/L (98-107); Estimated GFR-MDRD 28; Globulin 5.4 g/dL (2.4-3.5); Magnesium 2.1 mg/dL (1.6-2.6); Potassium 4.6 mmol/L (3.5-5.1); Protein, Total 9.1 g/dL (6.0-8.3); Sodium 132 mmol/L (136-145)
[2017-09-09 16:37] LABS: Troponin I 0.089 ng/mL (< 0.028)
[2017-09-09 16:42] LABS: Glucose 592 mg/dL (83-110)
[2017-09-09 17:25] LABS: Bilirubin Negative (Negative); Blood, Urine Negative (Negative); Clarity CLEAR (Clear); Glucose, Urine (Dipstick) 500 mg/dL (Negative); Leukocyte Negative (Negative); Nitrite Negative (Negative); Protein, Urine (Dipstick) Trace mg/dL (Neg-Trace); Specific Gravity, Urine 1.012 (1.002-1.036); Urobilinogen 0.2 mg/dL (0.2-1.0); pH, Urine 6.5 (5.0-9.0)
[2017-09-09] MEDS ORDERED: Insulin Regular 300 UNITS/3 ML VIAL ONE (17:49)
[2017-09-09 20:12] LABS: Lactic Acid 1.4 mmol/L (0.5-2.2)
== END 2017-09-09 20:43 | disposition home or self-care (01) ==
LOC: ERS 13:34
DX: E11.65 Type 2 diabetes mellitus with hyperglycemia (principal); I10 Essential (primary) hypertension; I25.10 Atherosclerotic heart disease of native coronary artery without angina pectoris
CPT/HCPCS: 36415; 36416; 71045; 80053; 81003; 82010; 82330; 82803; 83605; 83735; 83880; 84443; 84484; 85025; 85610; 87086; 93005; 96360; 96361; J1815

== ENCOUNTER 2017-09-21 17:53 | Inpatient (IN) | payer MEDICARE ==
[2017-09-21 18:21] LABS: #Eosinphils 0.3 thou/uL (0.0-0.7); #Lymphocytes 2.8 thou/uL (1.20-3.40); #Monocytes 0.5 thou/uL (0.11-0.59); #Neutrophils 2.8 thou/uL (1.40-6.50); %Basophils 0.7 % (0.0-1.0); %Eosinophils 4.5 % (0.0-10.0); %Lymphocytes 42.6 % (21.0-51.0); %Monocytes 8.4 % (0.0-10.0); %Neutrophils 43.8 % (42.0-75.0); Hemoglobin 11.6 g/dL (12.0-16.0); Mean Corpuscular HGB CONC 34.3 g/dL (32.0-36.0); Mean Corpuscular Hemoglobin 30.3 pg (27.0-31.0); Mean Corpuscular Volume 88.4 fl (81.0-99.0); Platelet Count 199 thou/uL (130-400); RBC Distribution Width 12.4 % (11.5-14.5); Red Blood Cell (RBC) Count 3.81 mill/uL (4.20-5.40); White Blood Cell (WBC) Count 6.5 thou/uL (4.8-10.8)
[2017-09-21 18:28] LABS: INR-International Normal Ratio 1.1; PTT 29.9 SEC (22.9-36.1); Prothrombin Time 14.4 SEC (12.0-14.7)
[2017-09-21 18:34] LABS: ALT (SGPT) 28 U/L (8-55); AST (SGOT) 38 U/L (5-34); Albumin 3.4 g/dL (3.4-4.8); Alkaline Phosphatase 101 U/L (40-150); Anion Gap 15 mmol/L (10-20); BUN (Urea Nitrogen) 48 mg/dL (9.8-20.1); Bilirubin, Total 0.7 mg/dL (0.2-1.2); Calc. Creatinine Clearance 0 mL/min (70-130); Calcium 9.7 mg/dL (7.8-10.44); Carbon Dioxide 16 mmol/L (23-31); Chloride 106 mmol/L (98-107); Estimated GFR-MDRD 35; Glucose 135 mg/dL (83-110); Potassium 4.4 mmol/L (3.5-5.1); Protein, Total 8.4 g/dL (6.0-8.3); Sodium 133 mmol/L (136-145)
[2017-09-21 18:39] LABS: Troponin I 0.058 ng/mL (< 0.028)
[2017-09-21 19:00] LABS: Bilirubin Negative (Negative); Blood, Urine Negative (Negative); Clarity CLEAR (Clear); Glucose, Urine (Dipstick) Negative (Negative); Leukocyte Negative (Negative); Nitrite Negative (Negative); Protein, Urine (Dipstick) 100 mg/dL (Neg-Trace); Specific Gravity, Urine 1.012 (1.002-1.036)
[2017-09-21 19:04] LABS: Base Excess-Venous -2.6 mmol/L (0 (+/- 2.5)); Bicarbonate (HCO3v) 19.6 mmol/L (1.0-85.0); CO2 Tension (PvCO2) 26.1 mmHg (41.0-51.0); Calcium, Ionized 1.14 mmol/L (1.12-1.32); Hemoglobin - Calc 11.2 g/dL (12.0-18.0); O2 Tension (PvO2) 68.6 mmHg (35.0-45.0); Potassium 4.1 mmol/L (3.4-4.7); T. Carbon Dioxide 20.5 mmol/L (1.0-85.0); pH (Venous) 7.485 (7.35-7.45); vO2 Saturation-calc 95.2 % (94-98)
[2017-09-21 19:09] LABS: Bacteria/HPF 4+ HPF (None Seen); Hyaline Casts/LPF NONE SEEN LPF (0-3 Hyaline); RBC/HPF None Seen HPF (0-3); WBC/HPF None Seen HPF (0-3)
[2017-09-21 19:26] LABS: Lactic Acid 1.5 mmol/L (0.5-2.2)
--- NOTE | 2017-09-21 19:26 | CT ---
BRAIN CT WITHOUT IV CONTRAST: HISTORY: A 77-year-old female with a history of stroke alert, right-sided weakness, slurred speech, and disori entation. COMPARISON: 07/01/2017 FINDINGS: Bilateral atrophy and chronic white matter ischemic change. No focal mass or midline shift. No intr aaxial or extraaxial hemorrhage. No CT evidence for acute infarct. The sinuses and mastoids are xenia ar of acute process. IMPRESSION: Atrophy and chronic white matter ischemic change, stable. No new process. Findings discussed with Dr. Lombardo at 6:22 p.m. CODE CR POS: [facility]
[2017-09-21] MEDS ORDERED: Lorazepam 2 MG/ML VIAL ONE ×2 (19:42→21:29)
--- NOTE | 2017-09-21 19:46 | RAD ---
CHEST ONE VIEW: HISTORY: Altered mental status. Possible urinary tract infection. COMPARISON: 09/09/2017 FINDINGS: Postop midline sternotomy changes. Minimal cardiomegaly. No confluent pneumonia, overt edema, or pl eural effusion. IMPRESSION: Borderline cardiomegaly. Postop midline sternotomy. Atherosclerosis of the aorta. Stable from prio r study. POS: [facility]
--- NOTE | 2017-09-21 20:23 | CT ---
ABDOMEN AND PELVIS CT SCAN WITHOUT IV CONTRAST: HISTORY: A 77-year-old female with a history of altered mental status. FINDINGS: There is some minimal left-sided pleural thickening, evidence for some chronic change. Status post c holecystectomy. The visualized liver, pancreas, spleen, and adrenal glands are unremarkable. A 2.1 cm in diameter right pararenal cyst. No renal calculus or acute obstruction. There is gas and fe elvis material throughout the colon. There is some potential borderline nonspecific small bowel wall t hickening, which could possibly represent some mild enteritis, but is a borderline finding. The urin elaine bladder appears unremarkable. No abscess, adenopathy, or abnormal fluid collection. IMPRESSION: Minimal left-sided pleural thickening. Status post cholecystectomy without ductal dilatation. Small right renal cyst. Questionable borderline small bowel wall thickening, nonspecific. Gas and fecal material in the colon. No evidence for other significant acute process. POS: [facility]
[2017-09-21 22:54] LABS: Troponin I 0.074 ng/mL (< 0.028)
[2017-09-22] MEDS ORDERED: Ondansetron HCl/PF 4 MG/2 ML Vial IVP PRN (00:54)
[2017-09-22] MEDS ORDERED: Dextrose 50% Abboject 50 ML SYRINGE SLOW IVP PRN (00:54)
[2017-09-22] MEDS ORDERED: Dextrose 5% in Water 1,000 ML IV PRN (00:54)
[2017-09-22] MEDS ORDERED: HumaLOG 300 UNITS/3 ML VIAL SC PRN ×2 (00:54)
[2017-09-22 00:58] LABS: Troponin I 0.071 ng/mL (< 0.028)
[2017-09-22 01:20] LABS: ALT (SGPT) 26 U/L (8-55); AST (SGOT) 33 U/L (5-34); Albumin 3.4 g/dL (3.4-4.8); Alkaline Phosphatase 93 U/L (40-150); Bilirubin, Direct 0.3 mg/dL (0.1-0.3); Bilirubin, Total 0.6 mg/dL (0.2-1.2); Protein, Total 7.9 g/dL (6.0-8.3)
[2017-09-22 04:34] LABS: Hemoglobin A1c 9.8 % (4.0-6.0)
[2017-09-22 04:50] LABS: ALT (SGPT) 27 U/L (8-55); AST (SGOT) 38 U/L (5-34); Albumin 3.4 g/dL (3.4-4.8); Alkaline Phosphatase 92 U/L (40-150); Anion Gap 13 mmol/L (10-20); BUN (Urea Nitrogen) 45 mg/dL (9.8-20.1); Bilirubin, Total 0.7 mg/dL (0.2-1.2); Calc. Creatinine Clearance 0 mL/min (70-130); Calcium 10.2 mg/dL (7.8-10.44); Carbon Dioxide 19 mmol/L (23-31); Chloride 110 mmol/L (98-107); Estimated GFR-MDRD 42; Globulin 4.7 g/dL (2.4-3.5); Glucose 82 mg/dL (83-110); Potassium 3.6 mmol/L (3.5-5.1); Protein, Total 8.1 g/dL (6.0-8.3); Sodium 138 mmol/L (136-145)
[2017-09-22 06:10] LABS: Troponin I 0.075 ng/mL (< 0.028)
[2017-09-22 06:57] VITALS: BMI 21.4
--- NOTE | 2017-09-22 08:01 | HP ---
DATE OF ADMISSION: 09/21/2017 PRIMARY CARE PHYSICIAN: Diallo Bauer M.D. TIME OF SERVICE: 2300. CHIEF COMPLAINT: Altered mental status. HISTORY OF PRESENT ILLNESS: Ms. Sung is a 77-year-old [place] female with history of psoriasis, di abetes, hypertension, coronary artery disease, chronic kidney disease, hypothyroidism, possible arrhy thmias. She presents to the emergency department with altered mental status with her . She was last known to be normal around 1800 hours on 09/20/2017. Of note, she was diagnosed with a U TI about 2 weeks ago and treated with antibiotics. Her noted today she was getting sleepy in the morning. She progressively got sleepier throug h the day and was really not able to talk, wakeup or interact this evening. EMS was activated. She was brought to the emergency department for evaluation. In the ER, labs were fairly normal except for bicarbonate of 16, ammonia was 108 and no history of li morgan disease. We were subsequently called for further workup and evaluation. Patient is sleepy. She does slightly arouse to verbal stimuli, but does not make any coherent words or follow any commands. is at the bedside to corroborate the story. PAST MEDICAL HISTORY: 1. Psoriasis. 2. Diabetes mellitus type 2, insulin-dependent. 3. Hypertension, essential. 4. Coronary artery disease, status post bypass. 5. Chronic kidney disease stage 3. 7. History of arrhythmias, status post ablation. 8. Hypothyroidism. PAST SURGICAL HISTORY: 1. ORIF of the right ankle. 2. Cardiac ablation. 3. Coronary artery bypass grafting x4 vessels. 4. Cholecystectomy. HOME MEDICATIONS: 1. Amlodipine 5 mg p.o. daily. 2. Benazepril 40 mg once a day. 3. Hydroxyzine 25 mg every 8 hours as needed. 4. Levothyroxine 88 mcg daily. 5. Levemir 15 units subcu b.i.d. 6. Humira 40 mg subcutaneous every 2 weeks. Restarted about a month ago after a 6-month break. 7. Aggrenox 25/200 daily. 8. Soriatane 25 mg daily. 9. Aspirin 325 mg daily. 10. Coreg 6.25 mg p.o. b.i.d. is not sure if she is still taking this. 11. Famotidine 20 mg p.o. daily. 12. Iron sulfate 325 mg daily. 13. Lasix 40 mg daily. 14. Potassium chloride 10 mEq daily. 15. Rosuvastatin 10 mg p.o. at bedtime. 16. Albuterol sulfate HFA 2 puffs inhaled q.4 hours p.r.n. 17. Alogliptin 6.25 mg p.o. daily. ALLERGIES: ALEVE, HYDROCODONE, and NAPROXEN. Her is not quite sure of the reactions. FAMILY HISTORY: Negative for clotting or bleeding disorders. No immune dysfunction. No recent eileen el. SOCIAL HISTORY: Negative for habits x3. She is , monogamous. Her and I discussed co de status. He does wish her to be a FULL CODE. He is not quite sure of her wishes. REVIEW OF SYSTEMS: A 10 point review of systems was not obtainable due to patient's altered mental s tatus. PHYSICAL EXAMINATION: VITAL SIGNS: Temperature 98.5, pulse 61, blood pressure 173/72, respiratory rate 16, O2 sat 90% on r oom air. GENERAL: She is sleeping. She stares to verbal stimuli, but is not arousable. She is unable to giv e any information. HEENT: Normocephalic, atraumatic. Pupils equal, round, react to light bilaterally, Mucous membrane s are moist. No visible lesions. No thrush. She is anicteric. NECK: Supple, without lymphadenopathy, JVD, or thyromegaly. She has normal carotid upstroke. I do not appreciate bruit. LUNGS: Clear to auscultation bilaterally. She has adequate air movement. Symmetrical chest excursi on. There are no wheezes, no rales, no rhonchi. No prolonged expiratory phase. CARDIOVASCULAR: She has normal cardiac and regular. Normal S1, S2. No S3, S4, no murmurs. ABDOMEN: Soft. It is nontender, nondistended. She has normal liver span. There is no evidence of hepatosplenomegaly. No involuntary guarding and no rebound. EXTREMITIES: Show no cyanosis, no clubbing. She has no edema. She has a 2+ poor peripheral pulse i n the dorsalis pedis and posterior tibial arteries. SKIN: Warm, moist and well perfused. There are no rashes, no lesions. There is no jaundice. She h as no active psoriasiform lesions. MUSCULOSKELETAL: Normal to inspection. She has no joint inflammation. No palpable effusions. NEUROLOGIC: She does withdraw from pain in all 4 extremities. There are no focal deficits obtainabl e. She is not awake enough to be able to cooperate. LABORATORY DATA: Sodium 133, potassium 4.4, chloride 106, bicarb 16, BUN 48, creatinine 1.45, glucos e 135 and calcium is 9.7. Liver function is apparently normal. The total bilirubin 0.7, AST of 38, ALT of 28, alkaline phosphatase is 101. Total protein is 8.4 and albumin is 3.4. BNP was fairly normal at 209.7. CK-MB was normal at 2.0, troponin I was 0.058 with a repeat immediat nicholas of 0.058 and 0.074. TSH was low at 0.101. Lipase was normal at 29. Ammonia was elevated at 108 . Repeat LFTs within normal limits. Urinalysis showed 4+ bacteria, 4-6 squamous epithelial cells, n o white cells, no leukocyte esterase, no nitrites and no blood. CBC showed a white count of 6.5, hemoglobin 11.6, hematocrit 33.7, platelet count is normal at 199,00 0. She has a normal differential. RADIOGRAPHIC STUDIES: She had a chest x-ray that showed chronic changes, but no acute cardiopulmonar y disease. She had a brain CT that showed atrophy and chronic white matter ischemic changes and that is stable. No new processes. A CT scan of the abdomen and pelvis showed minimal left-sided pleural thickening and status post cholecystectomy without ductal dilation. There is small right renal cyst and questionable borderline small bowel wall thickening that is nonspecific. There is gas and fecal material in the colon. No evidence of any other significant acute processes. ASSESSMENT AND PLAN: 1. Metabolic encephalopathy. 2. Hyperammonemia. 3. Metabolic acidosis with a VBG that showed a normal pH 7.48, but bicarb is low at 16. 4. Diabetes mellitus type 2, insulin-dependent. 5. Hypertension. 6. History of coronary artery disease. 7. Chronic kidney disease at baseline. 8. Hypothyroidism. 9. Psoriasis, on Humira. PLAN: 1. We will place the patient on inpatient medical. We will give her lactulose q.i.d. and recheck he r ammonia. May need to consult GI for their recommendations. She has normal LFTs and imaging did no t suggest any liver abnormalities. 2. We will hold her diabetic medication until she is more awake to eat. We will get speech therapy to evaluate. We will use sliding scale insulin as needed for correction. 3. Renal function is stable to baseline. We will hydrate at 100 mL per hour of normal saline, histo ry of coronary disease with indeterminate troponins from 0.058, 0.07. We will keep a close eye on te lemetry. 4. Hypothyroidism with a low TSH. She will be off of levothyroxine. She is on 88 mcg now. We will continue to watch.
[2017-09-22] MEDS: Sodium Chloride 0.9% 1,000 ML IV SCH ×3 (08:32→21:11)
[2017-09-22] MEDS ORDERED: Famotidine/PF 20 mg/2ml Vial SLOW IVP SCH (09:00)
--- NOTE | 2017-09-22 10:00 | PDOC.PN ---
- Subjective Encounter Start Date: 09/22/17 Encounter Start Time: 10:07 Subjective: No new complaints. Awake, alert today. -: No acute events overnight. - Objective Resuscitation Status: Resuscitation Status FULL:Full Resuscitation Vital Signs & Weight: Vital Signs (12 hours) Temp Pulse Resp BP Pulse Ox 09/22/17 07:40 97.8 F 79 20 95 09/22/17 05:55 97.8 F 79 20 155/69 H 99 Weight Admit Weight 129 lb 3.2 oz Weight 129 lb 3.2 oz I&O: 09/21/17 09/22/17 09/23/17 06:59 06:59 06:59 Output Total 0 Balance 0 Result Diagrams: 09/21/17 18:07 09/22/17 03:21 Additional Labs: Accuchecks 09/22/17 09/21/17 09/21/17 03:14 23:37 22:05 POC Glucose 84 88 91 Phys Exam - Physical Examination Constitutional: NAD HEENT: PERRLA, moist MMs, sclera anicteric Neck: no JVD, supple, full ROM Respiratory: no wheezing, no rales, no rhonchi, clear to auscultation bilateral Cardiovascular: RRR, no significant murmur, no rub Gastrointestinal: soft, non-tender, no distention, positive bowel sounds Musculoskeletal: no edema, pulses present Neurological: non-focal, moves all 4 limbs AO x 2 (person and place) Psychiatric: normal affect Skin: no rash, normal turgor Dx/Plan (1) Acute metabolic encephalopathy Code(s): G93.41 - METABOLIC ENCEPHALOPATHY Status: Acute Comment: Improving. Serim ammonia >100 09/21. AO x 2 today. Continue lactulose. (2) [id number] kidney injury Code(s): N17.9 - ACUTE KIDNEY FAILURE, UNSPECIFIED; N18.9 - CHRONIC KIDNEY DISEASE, UNSPECIFIED Status: Acute Qualifiers: Acute renal failure type: unspecified Chronic kidney disease stage: stage 3 (moderate) Qualified Code(s): N17.9 - Acute kidney failure, unspecified; N18.3 - Chronic kidney disease, stage 3 (moderate); N18.3 - Chronic kidney disease, stage 3 (moderate) Comment: Renal indics continue to improve. Continue hydration. (3) Psoriasis Code(s): L40.9 - PSORIASIS, UNSPECIFIED Status: Chronic Comment: Stable. Continue home medications. (4) S/P CABG (coronary artery bypass graft) Code(s): Z95.1 - PRESENCE OF AORTOCORONARY BYPASS GRAFT Status: Acute Comment: Stable. Chest pain free. Will restart home meds once confirmed. (5) Coronary artery disease Code(s): I25.10 - ATHSCL HEART DISEASE OF [place] CORONARY ARTERY W/O ANG PCTRS Status: Chronic Qualifiers: Coronary Disease-Associated Artery/Lesion type: bypass graft [place] vs. transplanted heart: [place] heart Associated angina: without angina Qualified Code(s): I25.810 - Atherosclerosis of coronary artery bypass graft(s) without angina pectoris Comment: Stable. Chest pain free. Will restart home meds once confirmed. (6) Diabetes type 2, controlled Code(s): E11.9 - TYPE 2 DIABETES MELLITUS WITHOUT COMPLICATIONS Status: Chronic Qualifiers: Diabetes mellitus nursing home insulin use: with nursing home use Diabetes mellitus complication status: with kidney complications Diabetes mellitus complication detail: with chronic kidney disease Chronic kidney disease stage : stage 3 (moderate) Qualified Code(s): E11.22 - Type 2 diabetes mellitus with diabetic chronic kidney disease; N18.3 - Chronic kidney disease, stage 3 ( moderate); N18.3 - Chronic kidney disease, stage 3 (moderate); Z79.4 - ocean transportation intermediary (current) use of insulin; Z79.4 - [facility] (current) use of insulin; Z79.4 - ocean transportation intermediary (current) use of insulin; Z79.4 - ocean transportation intermediary (current) use of insulin Comment: Well controlled. Continue current medications. (7) Hypertension Code(s): I10 - ESSENTIAL (PRIMARY) HYPERTENSION Status: Chronic Qualifiers: Hypertension type: essential hypertension Qualified Code(s): I10 - Essential (primary) hypertension Comment: Not at goal. Will restart amlodipine and Carvedilol. (8) Hypothyroidism Code(s): E03.9 - HYPOTHYROIDISM, UNSPECIFIED Status: Chronic Qualifiers: Hypothyroidism type: unspecified Qualified Code(s): E03.9 - Hypothyroidism , unspecified Comment: TSH low. T4 ordered. Will hold levothyroxine for now. (9) Moderate aortic stenosis Code(s): I35.0 - NONRHEUMATIC AORTIC (VALVE) STENOSIS Status: Chronic Comment: Continue home meds. - Plan cont current plan of care, DVT proph w/heparin * . Review of Systems - Medications/Allergies Allergies/Adverse Reactions: Allergies Allergy/AdvReac Type Severity Reaction Status Date / Time naproxen sodium [From Aleve] Allergy Mild Verified 07/08/17 21:28 hydrocodone Allergy Verified 07/08/17 21:28 Medications: Current Medications Dextrose/Water (Dextrose 50%) 25 gm SLOW IVP PRN PRN PRN Reason: Hypoglycemia Famotidine (Pepcid) 20 mg SLOW IVP DAILY [facility] Last Admin: 09/22/17 09:11 Dose: 20 mg Glucagon (Glucagon) 1 mg IM PRN PRN PRN Reason: Hypoglycemia Dextrose/Water (D5w) 1,000 mls @ 0 mls/hr IV .Q0M PRN; As Directed PRN Reason: Hypoglycemia Sodium Chloride (Normal Saline 0.9%) 1,000 mls @ 100 mls/hr IV .Q10H [facility] Last Admin: 09/22/17 09:10 Dose: 1,000 mls Insulin Human Lispro (Humalog) 0 units SC .BEDTIME SLIDING SC PRN PRN Reason: Bedtime Correctional Scale Insulin Human Lispro (Humalog) 0 units SC .AGGRESSIVE SLIDING PRN PRN Reason: Aggressive Correctional Scale Lactulose (Lactulose) 30 gm PO Q6HR [facility] Last Admin: 09/22/17 09:20 Dose: 30 gm Ondansetron HCl (Zofran) 4 mg IVP Q6H PRN PRN Reason: Nausea/Vomiting
[2017-09-22] MEDS: Carvedilol 6.25 MG TAB PO SCH (16:31)
[2017-09-22] MEDS: Alogliptin 25 MG TAB PO SCH (20:49)
[2017-09-22] MEDS: Rosuvastatin 10 MG TAB PO SCH (20:50)
[2017-09-22] MEDS: Heparin 5,000 UNITS/ML VIAL SC SCH (20:50)
[2017-09-23] MEDS: Levothyroxine Sodium 88 MCG TAB PO SCH (05:09)
[2017-09-23 06:07] LABS: ALT (SGPT) 30 U/L (8-55); AST (SGOT) 46 U/L (5-34); Albumin 2.8 g/dL (3.4-4.8); Alkaline Phosphatase 88 U/L (40-150); Anion Gap 10 mmol/L (10-20); BUN (Urea Nitrogen) 30 mg/dL (9.8-20.1); Band 1 % (5-11); Bilirubin, Total 0.5 mg/dL (0.2-1.2); Calc. Creatinine Clearance 46 mL/min (70-130); Calcium 8.7 mg/dL (7.8-10.44); Carbon Dioxide 19 mmol/L (23-31); Chloride 115 mmol/L (98-107); Eosinophils 2 % (0-10); Estimated GFR-MDRD 58; Globulin 3.7 g/dL (2.4-3.5); Glucose 107 mg/dL (83-110); Hemoglobin 9.9 g/dL (12.0-16.0); Lymphocytes 45 % (21-51); MDiff Complete? YES; Magnesium 1.7 mg/dL (1.6-2.6); Mean Corpuscular Hemoglobin 30.5 pg (27.0-31.0); Mean Corpuscular Volume 87.1 fl (81.0-99.0); Mean Platelet Volume 6.5 fL (7.4-10.4); Monocytes 13 % (0-10); Neutrophil 39 % (42-75); Platelet Count 170 thou/uL (130-400); Potassium 3.7 mmol/L (3.5-5.1); Protein, Total 6.5 g/dL (6.0-8.3); RBC Distribution Width 12.3 % (11.5-14.5); Red Blood Cell (RBC) Count 3.25 mill/uL (4.20-5.40); Sodium 140 mmol/L (136-145); White Blood Cell (WBC) Count 5.1 thou/uL (4.8-10.8)
[2017-09-23] MEDS: Sodium Chloride 0.9% 1,000 ML IV SCH (07:14)
[2017-09-23] MEDS: Ferrous Sulfate 325 MG TAB PO SCH (08:21)
[2017-09-23] MEDS: Alogliptin 25 MG TAB PO SCH ×2 (08:21→21:36)
[2017-09-23] MEDS: Amlodipine 5 MG TAB PO SCH (08:22)
[2017-09-23] MEDS: Furosemide 40 MG TAB PO SCH (08:22)
[2017-09-23] MEDS: Famotidine 20 MG TAB PO SCH (08:22)
[2017-09-23] MEDS: Potassium Chloride 10 MEQ TAB PO SCH ×2 (08:22→16:55)
[2017-09-23] MEDS: Aspirin 81 mg Enteric Coated Tablet PO SCH (08:22)
[2017-09-23] MEDS: Heparin 5,000 UNITS/ML VIAL SC SCH ×2 (08:23→21:36)
[2017-09-23] MEDS: Senokot S 8.6-50 MG TAB PO SCH (08:23)
[2017-09-23] MEDS: Carvedilol 6.25 MG TAB PO SCH ×2 (08:23→16:55)
--- NOTE | 2017-09-23 11:50 | PDOC.PN ---
- Subjective Encounter Start Date: 09/23/17 Encounter Start Time: 11:56 Subjective: No new complaints. no acute events overnight. - Objective Resuscitation Status: Resuscitation Status FULL:Full Resuscitation MAR Reviewed: Yes Vital Signs & Weight: Vital Signs (12 hours) Temp Pulse Resp BP BP Pulse Ox 09/23/17 08:23 165/72 H 09/23/17 08:22 69 09/23/17 08:00 97.5 F L 69 14 09/23/17 07:40 97.5 F L 69 14 185/73 H 99 09/23/17 04:00 98.4 F 71 16 140/65 99 09/23/17 00:02 98.2 F 75 16 153/67 H 100 Weight Admit Weight 129 lb 3.2 oz Weight 129 lb 3.2 oz I&O: 09/22/17 09/23/17 09/24/17 06:59 06:59 06:59 Intake Total 300 Output Total 0 Balance 0 300 Result Diagrams: 09/23/17 05:21 09/23/17 05:21 Additional Labs: Accuchecks 09/23/17 09/23/17 09/22/17 04:26 02:32 20:46 POC Glucose 109 116 H 231 H 09/22/17 09/22/17 17:08 12:19 POC Glucose 161 H 151 H Phys Exam - Physical Examination Constitutional: NAD HEENT: PERRLA, moist MMs, sclera anicteric, oral pharynx no lesions Neck: no JVD, supple, full ROM Respiratory: no wheezing, no rales, no rhonchi, clear to auscultation bilateral Cardiovascular: RRR, no significant murmur, no rub s1 s2 only Gastrointestinal: soft, non-tender, no distention, positive bowel sounds Musculoskeletal: no edema, pulses present Neurological: non-focal, moves all 4 limbs Psychiatric: normal affect Deviation from normal: AO x 2 Skin: no rash, normal turgor Dx/Plan (1) [id number]-[id number] kidney injury Code(s): N17.9 - ACUTE KIDNEY FAILURE, UNSPECIFIED; N18.9 - CHRONIC KIDNEY DISEASE, UNSPECIFIED Status: Acute Qualifiers: Acute renal failure type: unspecified Chronic kidney disease stage: stage 3 (moderate) Qualified Code(s): N17.9 - Acute kidney failure, unspecified; N18.3 - Chronic kidney disease, stage 3 (moderate); N18.3 - Chronic kidney disease, stage 3 (moderate) Comment: Renal indices continue to improve. Encourage on PO hydration. DC IVF. (2) Coronary artery disease Code(s): I25.10 - ATHSCL HEART DISEASE OF [place] CORONARY ARTERY W/O ANG PCTRS Status: Chronic Qualifiers: Coronary Disease-Associated Artery/Lesion type: bypass graft [place] vs. transplanted heart: [place] heart Associated angina: without angina Qualified Code(s): I25.810 - Atherosclerosis of coronary artery bypass graft(s) without angina pectoris Comment: Stable. Chest pain free. Continue home meds. (3) S/P CABG (coronary artery bypass graft) Code(s): Z95.1 - PRESENCE OF AORTOCORONARY BYPASS GRAFT Status: Acute Comment: Stable. Chest pain free. (4) Psoriasis Code(s): L40.9 - PSORIASIS, UNSPECIFIED Status: Chronic Comment: Stable. Continue home medications. (5) Diabetes type 2, controlled Code(s): E11.9 - TYPE 2 DIABETES MELLITUS WITHOUT COMPLICATIONS Status: Chronic Qualifiers: Diabetes mellitus [facility] insulin use: with long term care pharmacist use Diabetes mellitus complication status: with kidney complications Diabetes mellitus complication detail: with chronic kidney disease Chronic kidney disease stage : stage 3 (moderate) Qualified Code(s): E11.22 - Type 2 diabetes mellitus with diabetic chronic kidney disease; N18.3 - Chronic kidney disease, stage 3 ( moderate); N18.3 - Chronic kidney disease, stage 3 (moderate); Z79.4 - buttermaker continuous churn (current) use of insulin; Z79.4 - skilled nursing (current) use of insulin; Z79.4 - buttermaker continuous churn (current) use of insulin; Z79.4 - buttermaker continuous churn (current) use of insulin Comment: Well controlled. Continue current medications. (6) Hypertension Code(s): I10 - ESSENTIAL (PRIMARY) HYPERTENSION Status: Chronic Qualifiers: Hypertension type: essential hypertension Qualified Code(s): I10 - Essential (primary) hypertension Comment: Achieving better control since home meds restarted. Continue amlodipine and Carvedilol. (7) Hypothyroidism Code(s): E03.9 - HYPOTHYROIDISM, UNSPECIFIED Status: Chronic Qualifiers: Hypothyroidism type: unspecified Qualified Code(s): E03.9 - Hypothyroidism , unspecified Comment: Free T4 normal. Continue levothyroxine. (8) Moderate aortic stenosis Code(s): I35.0 - NONRHEUMATIC AORTIC (VALVE) STENOSIS Status: Chronic Comment: Currently asymptomatic. (9) Physical deconditioning Code(s): R53.81 - OTHER MALAISE Status: Chronic Comment: Multiple recent hospital admissions and SNF stays. PT on board. Will consult CM as well for discharge planning. (10) Chronic anemia Code(s): D64.9 - ANEMIA, UNSPECIFIED Status: Chronic Comment: Hb decreased, likely dilutional. She has a h/o IV iron administration. Will continue PO supplementation and monitor. (11) Acute metabolic encephalopathy Code(s): G93.41 - METABOLIC ENCEPHALOPATHY Status: Resolved Comment: Resolved. Serum ammonia >100 09/21. AO x 2 today. Continue lactulose. - Plan cont current plan of care, PT/OT, clinical social work therapist, DVT proph w/heparin * . Review of Systems - Medications/Allergies Allergies/Adverse Reactions: Allergies Allergy/AdvReac Type Severity Reaction Status Date / Time naproxen sodium [From Aleve] Allergy Mild Verified 07/08/17 21:28 hydrocodone Allergy Verified 07/08/17 21:28 Medications: Current Medications Alogliptin Benzoate (Alogliptin) 12.5 mg PO BID [facility] Last Admin: 09/23/17 08:21 Dose: 12.5 mg Amlodipine Besylate (Norvasc) 5 mg PO DAILY [facility] Last Admin: 09/23/17 08:22 Dose: 5 mg Aspirin (Ecotrin) 81 mg PO DAILY [facility] Last Admin: 09/23/17 08:22 Dose: 81 mg Carvedilol (Coreg) 6.25 mg PO BID-WM [facility] Last Admin: 09/23/17 08:23 Dose: 6.25 mg Dextrose/Water (Dextrose 50%) 25 gm SLOW IVP PRN PRN PRN Reason: Hypoglycemia Famotidine (Pepcid) 20 mg PO DAILY [facility] Last Admin: 09/23/17 08:22 Dose: 20 mg Ferrous Sulfate (Feosol) 325 mg PO DAILY [facility] Last Admin: 09/23/17 08:21 Dose: 325 mg Furosemide (Lasix) 40 mg PO DAILY [facility] Last Admin: 09/23/17 08:22 Dose: 40 mg Glucagon (Glucagon) 1 mg IM PRN PRN PRN Reason: Hypoglycemia Heparin Sodium (Porcine) (Heparin) 5,000 units SC BID [facility] Last Admin: 09/23/17 08:23 Dose: 5,000 units Dextrose/Water (D5w) 1,000 mls @ 0 mls/hr IV .Q0M PRN; As Directed PRN Reason: Hypoglycemia Insulin Human Lispro (Humalog) 0 units SC .BEDTIME SLIDING SC PRN PRN Reason: Bedtime Correctional Scale Insulin Human Lispro (Humalog) 0 units SC .AGGRESSIVE SLIDING PRN PRN Reason: Aggressive Correctional Scale Lactulose (Lactulose) 30 gm PO Q6HR [facility] Last Admin: 09/23/17 11:31 Dose: 30 gm Levothyroxine Sodium (Synthroid) 88 mcg PO 0600 [facility] Last Admin: 09/23/17 05:09 Dose: 88 mcg Ondansetron HCl (Zofran) 4 mg IVP Q6H PRN PRN Reason: Nausea/Vomiting Potassium Chloride (Klor-Con 10) 10 meq PO BID[facility] Last Admin: 09/23/17 08:22 Dose: 10 meq Rosuvastatin Calcium (Crestor) 10 mg PO HS [facility] Last Admin: 09/22/17 20:50 Dose: 10 mg Senna/Docusate Sodium (Senokot S) 1 tab PO DAILY [facility] Last Admin: 09/23/17 08:23 Dose: 1 tab Sodium Chloride (Flush - Normal Saline) 10 ml IVF Q12HR [facility] Last Admin: 09/23/17 08:23 Dose: Not Given Sodium Chloride (Flush - Normal Saline) 10 ml IVF PRN PRN PRN Reason: Saline Flush
[2017-09-23] MEDS: Rosuvastatin 10 MG TAB PO SCH (21:36)
[2017-09-24] MEDS: Levothyroxine Sodium 88 MCG TAB PO SCH (05:39)
[2017-09-24 06:01] LABS: Eosinophils 5 % (0-10); Hemoglobin 9.8 g/dL (12.0-16.0); Lymphocytes 51 % (21-51); MDiff Complete? YES; Mean Corpuscular HGB CONC 34.6 g/dL (32.0-36.0); Mean Corpuscular Hemoglobin 30.3 pg (27.0-31.0); Mean Corpuscular Volume 87.5 fl (81.0-99.0); Mean Platelet Volume 6.6 fL (7.4-10.4); Monocytes 3 % (0-10); Neutrophil 40 % (42-75); PLT Morphology Comment Appears Adequate; Platelet Count 159 thou/uL (130-400); RBC Distribution Width 12.3 % (11.5-14.5); Red Blood Cell (RBC) Count 3.24 mill/uL (4.20-5.40)
[2017-09-24] MEDS: Alogliptin 25 MG TAB PO SCH (08:56)
[2017-09-24] MEDS: Ferrous Sulfate 325 MG TAB PO SCH (08:57)
[2017-09-24] MEDS: Aspirin 81 mg Enteric Coated Tablet PO SCH (08:57)
[2017-09-24] MEDS: Furosemide 40 MG TAB PO SCH (08:57)
[2017-09-24] MEDS: Amlodipine 5 MG TAB PO SCH (08:57)
[2017-09-24] MEDS: Potassium Chloride 10 MEQ TAB PO SCH (08:57)
[2017-09-24] MEDS: Famotidine 20 MG TAB PO SCH (08:57)
[2017-09-24] MEDS: Senokot S 8.6-50 MG TAB PO SCH (08:58)
[2017-09-24] MEDS: Heparin 5,000 UNITS/ML VIAL SC SCH (08:58)
[2017-09-24] MEDS: Carvedilol 6.25 MG TAB PO SCH (08:58)
[2017-09-24 12:27] VITALS: BP 116/61; TEMP 97.5
--- NOTE | 2017-09-24 16:47 | DIS ---
DATE OF ADMISSION: 09/21/2017 DATE OF DISCHARGE: 09/24/2017 DISCHARGE DIAGNOSES: 1. Acute metabolic encephalopathy. 2. Acute on chronic kidney injury. 3. Coronary artery disease, status post coronary artery bypass grafting. 4. Psoriasis. 5. Type 2 diabetes mellitus. 6. Hypertension. 7. Hypothyroidism. 8. Moderate aortic stenosis. 9. Physical deconditioning. 10. Chronic anemia. HISTORY OF PRESENT ILLNESS/HOSPITAL COURSE: Ms. Sowmya Sung is a 77-year-old female with a history o f psoriasis, diabetes, hypertension, CAD, CKD, hypothyroidism, who presented to the emergency room wi th acute confusional state. She was brought there by her . Her last known normal was about 6 :00 p.m. on 09/20/2017. She had been diagnosed with urinary tract infection about 2 weeks before pre sentation and treated with antibiotics. Her noticed she was sleepier throughout the day and not really conversant as well and EMS was then activated and she was brought to the emergency room fo r followup. Her labs were relatively normal apart from a bicarbonate of 16 and ammonia of 108. She had no history of liver disease. Internal Medicine was subsequently called for further management. She was started on lactulose, admitted for acute metabolic encephalopathy. Radiographic studies show ed a chest x-ray with chronic changes, but no active pulmonary disease. Brain CT showed atrophy and chronic white matter ischemic changes, which was stable. CT abdomen and pelvis shows minimal left-si ded pleural thickening and status post cholecystectomy without ductal dilatation. There was a small retinal cyst on the right and questionable borderline small bowel wall thickening, which was nonspeci fic. There was also gas and fecal material in the colon with no evidence of any significant acute pr ocesses. She was continued on IV fluids and lactulose with subsequent improvement in her mental stat us. She became alert and oriented to person and place, which her reports as her usual baseli ne. Blood glucose was also well controlled while she was in the hospital. In addition, she was seen by Physical Therapy, especially since she has been in and out of rehabilitation facilities in the and this is her fourth ER visit in the last month. Her , however, insisted he wanted to take her home, so she was discharged on home health and was instructed to follow up with her prima care physician within 1 week of discharge. DISCHARGE MEDICATIONS: Levothyroxine sodium 88 mcg daily, Humira 40 mg subcutaneously every 14 days, albuterol sulfate 2 inhalation every 6 hours as needed. Famotidine 20 mg daily, rosuvastatin 10 mg at bedtime, ferrous sulfate 325 mg daily, amlodipine 5 mg daily, carvedilol 6.25 mg twice a day, pota ssium chloride 10 mg twice a day with meals, sitagliptin 50 mg twice a day, senna/docusate sodium 1 t ablet daily, aspirin 81 mg daily, furosemide 40 mg daily. PHYSICAL EXAMINATION: She was examined on the day of discharge. VITAL SIGNS: Temperature 97.5 degrees Fahrenheit, pulse rate 62, respiratory rate 18, oxygen saturat ion 98% on room air, blood pressure 116/61. GENERAL: Not in acute distress. She was lying comfortably in her bed. HEENT: PERRLA. EOMI. Moist mucous membranes. Anicteric. Not pale. NECK: Supple, no JVD. Full range of movement. RESPIRATORY: Vesicular breath sounds bilateral. No wheezes, rales, or rhonchi. CARDIOVASCULAR: Regular rate and rhythm. No murmurs, rubs, or gallops. S1 and S2 only. GASTROINTESTINAL: Soft, bowel sounds normoactive, nontender, nondistended. There is no hepatospleno megaly. MUSCULOSKELETAL: No edema. NEUROLOGIC: Alert and oriented x2. No focal deficits. PSYCHIATRIC: Normal mood and affect. SKIN: Warm, dry, well perfused with no rashes or lesions. LABORATORY DATA: WBC 5, hemoglobin 9.8, platelet count 159. Sodium 140, potassium 3.7, chloride 115 , carbon dioxide 19, anion gap 10, BUN 38, creatinine 0.94, glucose 107, calcium 8.7. IMAGING: Abdomen/pelvis CT, brain CT, and chest x-ray as reported in HPI. CONSULTATIONS: None. CONDITION AT DISCHARGE: Stable and improved. DIET: Diabetic, heart healthy. ACTIVITY: To resume as tolerated and as directed by physical and occupational therapy. CARE GOAL: Is to follow up with her primary care physician within 1 week of discharge. The patient and advised to return to the emergency room if she suffers any episodes of confusion, chest p ain, shortness of breath, or loss of consciousness. Discharge time 65 minutes including chart review and documentation.
--- NOTE | 2017-09-27 00:26 | EKG ---
Test Reason : Blood Pressure : / mmHG Vent. Rate : 070 BPM Atrial Rate : 070 BPM P-R Int : 144 ms QRS Dur : 124 ms QT Int : 488 ms P-R-T Axes : 052 029 141 degrees QTc Int : 527 ms Normal sinus rhythm Non-specific intra-ventricular conduction delay Abnormal ECG Confirmed by BIANCA MARISCAL [id number]), deputy editor in chief COLLIN WALSH ([id number] on 09/27/2017 12:25:16 AM Referred By: Confirmed By:BIANCA MARISCAL
== END 2017-09-24 14:50 | disposition home health service (06) | DRG 682 ==
LOC: ERS 17:53 → ERHOLD 20:53 → 2SE 09-22 05:56
PROVIDERS: ADMIT Emergency Medicine; ATTEND Emergency Medicine
DX: N17.9 Acute kidney failure, unspecified (principal); G93.41 Metabolic encephalopathy; E87.2 Acidosis; E72.20 Disorder of urea cycle metabolism, unspecified; E11.22 Type 2 diabetes mellitus with diabetic chronic kidney disease; N18.3 Chronic kidney disease, stage 3 (moderate); I12.9 Hypertensive chronic kidney disease with stage 1 through stage 4 chronic kidney disease, or unspecified chronic kidney disease; E03.9 Hypothyroidism, unspecified; I25.10 Atherosclerotic heart disease of native coronary artery without angina pectoris; Z79.4 Long term (current) use of insulin; L40.9 Psoriasis, unspecified; Z95.1 Presence of aortocoronary bypass graft; I35.0 Nonrheumatic aortic (valve) stenosis; D63.1 Anemia in chronic kidney disease
CPT/HCPCS: 36415; 36416; 51701; 70450; 71045; 74176; 80053; 80076; 81003; 81015; 82140; 82330; 82553; 82803; 83036; 83605; 83690; 83735; 83880; 84439; 84443; 84484; 85025; 85610; 85730; 87086; 93005; 94760; 96361; 96374; 96376; A4216; G8978-GP-CK; G8979-GP-CI; G8987-GO-CJ; G8988-GO-CI; J1644; J2060; S0028

== ENCOUNTER 2017-10-01 21:01 | Emergency (ER) | payer MEDICARE ==
[2017-10-01 21:32] LABS: #Basophils 0.1 thou/uL (0.0-0.2); #Eosinphils 0.4 thou/uL (0.0-0.7); #Monocytes 0.7 thou/uL (0.11-0.59); %Basophils 1.2 % (0.0-1.0); %Eosinophils 8.1 % (0.0-10.0); %Lymphocytes 38.2 % (21.0-51.0); %Neutrophils 39.4 % (42.0-75.0); Hemoglobin 9.7 g/dL (12.0-16.0); Mean Corpuscular HGB CONC 34.6 g/dL (32.0-36.0); Mean Corpuscular Volume 83.7 fl (81.0-99.0); Mean Platelet Volume 6.1 fL (7.4-10.4); Platelet Count 166 thou/uL (130-400); RBC Distribution Width 12.6 % (11.5-14.5); Red Blood Cell (RBC) Count 3.36 mill/uL (4.20-5.40); White Blood Cell (WBC) Count 5.1 thou/uL (4.8-10.8)
[2017-10-01 21:49] LABS: ALT (SGPT) 24 U/L (8-55); AST (SGOT) 32 U/L (5-34); Albumin 3.3 g/dL (3.4-4.8); Alkaline Phosphatase 106 U/L (40-150); Anion Gap 16 mmol/L (10-20); BUN (Urea Nitrogen) 51 mg/dL (9.8-20.1); Bilirubin, Total 0.5 mg/dL (0.2-1.2); Calc. Creatinine Clearance 0 mL/min (70-130); Calcium 9.1 mg/dL (7.8-10.44); Carbon Dioxide 21 mmol/L (23-31); Chloride 101 mmol/L (98-107); Estimated GFR-MDRD 31; Globulin 4.7 g/dL (2.4-3.5); Glucose 470 mg/dL (83-110); Lipase 26 U/L (8-78); Potassium 4.1 mmol/L (3.5-5.1); Sodium 134 mmol/L (136-145)
[2017-10-01 22:07] LABS: Bilirubin Negative (Negative); Blood, Urine Negative (Negative); Clarity Clear (Clear); Glucose, Urine (Dipstick) >=1000 mg/dL (Negative); Leukocyte Negative (Negative); Nitrite Negative (Negative); Protein, Urine (Dipstick) 30 mg/dL (Neg-Trace); Urobilinogen 0.2 mg/dL (0.2-1.0); pH, Urine 5.5 (5.0-9.0)
[2017-10-01 22:10] LABS: Bacteria/HPF 1+ HPF (None Seen); RBC/HPF 0-3 HPF (0-3); Squamous Epithelial 0-3 HPF (0-3)
[2017-10-01] MEDS ORDERED: Insulin Regular 300 UNITS/3 ML VIAL ONE (22:20)
--- NOTE | 2017-10-01 22:29 | RAD ---
RADIOGRAPH CHEST 1 VIEW: 10/01/17 HISTORY: 77-year-old female with hyperglycemia. FINDINGS: There is cardiomegaly. There is no evidence of air space density, pulmonary edema, or pneumothorax. T he lateral costophrenic angles are sharp. There are sternotomy wires. IMPRESSION: 1) No acute pulmonary findings. 2) Cardiomegaly without congestive heart failure. 3) Evidence for previous open heart surgery. teofilo [] POS: JIN
== END 2017-10-01 22:33 | disposition home or self-care (01) ==
LOC: SCSER 21:01
DX: E11.65 Type 2 diabetes mellitus with hyperglycemia (principal); I10 Essential (primary) hypertension; I25.10 Atherosclerotic heart disease of native coronary artery without angina pectoris
CPT/HCPCS: 36416; 71045; 80053; 81003; 81015; 82010; 83690; 85025; 87040; 94760; 96360; 36415-59; J1815

== ENCOUNTER 2018-01-15 19:49 | Inpatient (IN) | payer MEDICARE ==
[2018-01-15 20:23] LABS: Hemoglobin 12.7 g/dL (12.0-16.0); Mean Corpuscular HGB CONC 34.9 g/dL (32.0-36.0); Mean Corpuscular Hemoglobin 30.8 pg (27.0-31.0); Mean Corpuscular Volume 88.4 fL (78.0-98.0); Mean Platelet Volume 6.4 fL (7.4-10.4); Platelet Count 183 thou/uL (130-400); RBC Distribution Width 13.7 % (11.5-14.5); Red Blood Cell (RBC) Count 4.13 mill/uL (4.20-5.40)
[2018-01-15 20:34] LABS: Bilirubin Negative (Negative); Blood, Urine Moderate (Negative); Clarity CLOUDY (Clear); Glucose, Urine (Dipstick) Negative (Negative); Leukocyte Small (Negative); Nitrite Negative (Negative); Protein, Urine (Dipstick) 300 mg/dL (Neg-Trace); Specific Gravity, Urine 1.012 (1.002-1.036); pH, Urine 6.5 (5.0-9.0)
[2018-01-15 20:35] LABS: Bacteria/HPF 4+ HPF (None Seen); Hyaline Casts/LPF 0-3 HYALINE CAST LPF (0-3 Hyaline); Pathc Cast-AUWi Flag 0.29 (0-2.49); Squamous Epithelial None Seen HPF (0-3)
[2018-01-15 20:39] LABS: Lactic Acid 1.5 mmol/L (0.5-2.2)
[2018-01-15] MEDS ORDERED: Acetaminophen 500 MG TAB ONE (20:40)
[2018-01-15 20:43] LABS: ALT (SGPT) 16 U/L (8-55); AST (SGOT) 26 U/L (5-34); Alkaline Phosphatase 95 U/L (40-150); Anion Gap 16 mmol/L (10-20); BUN (Urea Nitrogen) 27 mg/dL (9.8-20.1); Bilirubin, Total 0.7 mg/dL (0.2-1.2); CK (CPK) 73 U/L (29-168); Calc. Creatinine Clearance 0 mL/min (70-130); Calcium 9.5 mg/dL (7.8-10.44); Carbon Dioxide 17 mmol/L (23-31); Chloride 107 mmol/L (98-107); Estimated GFR-MDRD 40; Globulin 4.8 g/dL (2.4-3.5); Glucose 163 mg/dL (83-110); Protein, Total 8.8 g/dL (6.0-8.3); Sodium 136 mmol/L (136-145)
[2018-01-15 20:47] LABS: CKMB 1.3 ng/mL (0-6.6); Troponin I 0.023 ng/mL (< 0.028)
[2018-01-15 20:48] LABS: Band 7 % (5-11); Lymphocytes 11 % (21-51); MDiff Complete? YES; Monocytes 11 % (0-10); Neutrophil 71 % (42-75); PLT Morphology Comment Appears Adequate; RBC Morphology Normal
[2018-01-15] MEDS ORDERED: cefTRIAXone\\ROCEPHIN 1 GM VIAL ONE (21:33)
[2018-01-15] MEDS ORDERED: Sodium Chloride 0.9% 100 ML ONE (21:33)
[2018-01-16 01:05] VITALS: BMI 25.4
[2018-01-16] MEDS ORDERED: Acetaminophen 325 MG TAB PO PRN (01:11)
[2018-01-16] MEDS ORDERED: HumaLOG 300 UNITS/3 ML VIAL SC PRN (04:21)
[2018-01-16] MEDS ORDERED: Dextrose 50% Abboject 50 ML SYRINGE SLOW IVP PRN (04:21)
[2018-01-16] MEDS ORDERED: Dextrose 5% in Water 1,000 ML IV PRN (04:21)
[2018-01-16] MEDS ORDERED: Sodium Chloride 0.9% 1,000 ML IV SCH ×2 (04:30)
[2018-01-16 06:20] LABS: #Basophils 0.1 thou/uL (0.0-0.2); #Lymphocytes 2.1 thou/uL (1.20-3.40); #Monocytes 1.3 thou/uL (0.11-0.59); %Basophils 0.4 % (0.0-1.0); %Eosinophils 0.3 % (0.0-10.0); %Monocytes 10.2 % (0.0-10.0); %Neutrophils 72.1 % (42.0-75.0); Hemoglobin 11.5 g/dL (12.0-16.0); Mean Corpuscular HGB CONC 34.7 g/dL (32.0-36.0); Mean Corpuscular Hemoglobin 30.8 pg (27.0-31.0); Mean Corpuscular Volume 88.6 fL (78.0-98.0); Platelet Count 151 thou/uL (130-400); RBC Distribution Width 13.7 % (11.5-14.5); Red Blood Cell (RBC) Count 3.74 mill/uL (4.20-5.40); White Blood Cell (WBC) Count 12.5 thou/uL (4.8-10.8)
[2018-01-16 06:24] LABS: Anion Gap 14 mmol/L (10-20); BUN (Urea Nitrogen) 21 mg/dL (9.8-20.1); Calc. Creatinine Clearance 49 mL/min (70-130); Calcium 8.8 mg/dL (7.8-10.44); Carbon Dioxide 19 mmol/L (23-31); Chloride 108 mmol/L (98-107); Estimated GFR-MDRD 53; Glucose 164 mg/dL (83-110); Potassium 3.7 mmol/L (3.5-5.1); Sodium 137 mmol/L (136-145)
[2018-01-16] MEDS ORDERED: PROVENTIL INHALER 6.7 G (200 INHALATIONS) INH PRN (08:49)
[2018-01-16] MEDS: Alogliptin 6.25 MG TAB PO SCH ×2 (09:00→21:05)
--- NOTE | 2018-01-16 09:37 | RAD ---
CHEST ONE VIEW UPRIGHT PORTABLE: HISTORY: A 77-year-old female with a history of fever, congestive heart failure, pneumonia, and edema. COMPARISON: 10/01/2017 FINDINGS: Postop midline sternotomy. Mild cardiomegaly. Mild vascular congestion. No confluent pneumonia or overt edema. Possible small left pleural effusion or minimal left pleural thickening. IMPRESSION: Minimal left pleural effusion or pleural thickening. Mild cardiomegaly. Stable increased bronchovas cular markings bilaterally versus some bilateral vascular congestion. Postoperative midline sternoto my. No confluent process. Depending on concern, short-term followup for clearing or stability tj nieto. POS: DARIEN
[2018-01-16] MEDS: Aspirin 81 mg Enteric Coated Tablet PO SCH (11:08)
[2018-01-16] MEDS: Furosemide 40 MG TAB PO SCH (11:08)
[2018-01-16] MEDS: Famotidine 20 MG TAB PO SCH (11:08)
[2018-01-16] MEDS: Amlodipine 5 MG TAB PO SCH (11:09)
[2018-01-16] MEDS: Enoxaparin Sodium 40 MG/0.4 ML SYRINGE SC SCH (11:09)
[2018-01-16] MEDS: Senokot S 8.6-50 MG TAB PO SCH (11:09)
--- NOTE | 2018-01-16 11:19 | HP ---
CHIEF COMPLAINT: Altered mental status. HISTORY OF PRESENT ILLNESS: This patient is a 77-year-old female with a significant past medical his tory. Most notably, the patient has a history of UTIs and she also has a history of hyperammonemia o f unclear etiology. She had a normal appearing liver on CT scan just a few months ago. She has no h istory of significant liver disease. The patient is chronically on lactulose. On the day of admissi on, the patient presented via the emergency department. She was brought in by EMS because of altered mental status. The patient's family reports that she started off for days sluggishly and did not ge t up and going like she typically does and throughout the day, she became increasingly lethargic. Traore bsequently, they noted that for her to have a temperature of 100.5. Currently, the patient is able t o give some history. She states that she had some discomfort in her chest area yesterday, but it was very much related to movement and position. She denies any abdominal pain, dysuria, but she does ad grey to some urinary frequency. She also admits to some hyperglycemia over the last week or so. REVIEW OF SYSTEMS: The patient has been eating and drinking well. She is on lactulose and her bowel movements have been persistent frequent. She had no musculoskeletal symptoms other than those menti oned in the chest and the history of present illness. No depression, anxiety. No skin lesions. No difficulty swallowing, no shortness of breath or cough. No numbness, weakness, tingling or headaches . PAST MEDICAL HISTORY: Notable for diabetes mellitus type 2, psoriasis, hypertension, coronary artery disease, status post bypass graft, chronic kidney disease stage 3, history of arrhythmia status post ablation, hypothyroidism and hyperammonemia. PAST SURGICAL HISTORY: ORIF of the right ankle, cardiac ablation, coronary artery bypass grafting x4 vessels, cholecystectomy. ALLERGIES: NAPROXEN and HYDROCODONE. MEDICATION LIST: Still needs some confirmation and includes Januvia 50 mg b.i.d., Crestor 10 mg at b edtime, potassium 10 mEq p.o. b.i.d., Lasix 40 mg every day, Coreg 6.25 b.i.d., iron 325 every day, P epcid 20 mg every day, aspirin 81 mg every day, Proventil 2 puffs q.6 hours p.r.n., Colace 1 p.o. daryn ly, Humira 40 mg subcu every 14 days, Synthroid 88 mcg p.o. daily, Norvasc 5 mg p.o. daily. Patient is also on Levemir insulin and trying to elucidate the dose. PHYSICAL EXAMINATION: VITAL SIGNS: Temperature max since she has been here is 100.0, pulse 84, respirations 16, 98% on vaishnavi m air, BP 147/80. GENERAL APPEARANCE: Age appropriate female. Presently, she is awake, alert, oriented, pleasant and cooperative. HEENT: PERRL. No OP lesions. Her oral mucosa is pink and moist. NECK: Supple and symmetric without lymphadenopathy. HEART: Regular rate and rhythm without murmurs. There is a midline incisional scar which is healing well. There is minimal tenderness to palpation over the anterior chest wall. LUNGS: Clear to auscultation bilaterally with good chest wall expansion and air exchange. No wheeze s or rales are noted. ABDOMEN: Soft, nontender and nondistended. Positive bowel sounds, no masses, no organomegaly. SKIN: Warm and dry with no edema. LABORATORY DATA: Most recent that is white count of 12.5, hemoglobin 11.5, platelets 151. Sodium 13 7, potassium 3.7, chloride 108, CO2 19, BUN 21, creatinine is 1.01, glucose 164, calcium 8.8, ammonia 73, BNP 344. Urinalysis shows moderate blood, negative nitrites. Leukocyte esterase is small, grea ter than 50, too numerous to count, white blood cells and 4+ bacteria. IMPRESSION AND PLAN: 1. Altered mental status. Possibilities include acute urinary tract infection versus hyperammonemia or a combination thereof. Patient is getting some hydration and received IV antibiotics and we will keep her here until we can get some cultures and confirm sensitivities. 2. Urinary tract infection. Continue broad spectrum antibiotics, hydration. Follow cultures. 3. Hyperammonemia. The patient is on lactulose at home. Her ammonia level is still a bit high, but is certainly better than it was on her previous admission. We will recheck and consider increasing her lactulose if necessary. 4. Stable coronary artery disease status post bypass. We will continue with her usual home medicati ons. 5. Diabetes mellitus. We will try to confirm her normal home dose regimen. In the interim, we will continue Accu-Cheks and sliding scale insulin. 6. History of psoriasis. The patient is on immune therapy; however, that will be held for now given the underlying infection. 7. Hypertension. Continue with her home medications and monitoring. 8. Chronic kidney disease stage 3. Her initial creatinine here is 1.28, it is now down to 1.10 and this is substantially better than her numbers in the past which have been as high as the mid 3s back in June and most recently in July were around 1.24. 9. Hypothyroidism. We will continue with her usual dose of Synthroid. 10. Hyperlipidemia. Continue with her statin.
[2018-01-16] MEDS: Carvedilol 6.25 MG TAB PO SCH (18:13)
[2018-01-16] MEDS: Potassium Chloride 10 MEQ TAB PO SCH (18:13)
[2018-01-16] MEDS ORDERED: cefTRIAXone\\ROCEPHIN 1 GM in Sodium Chloride 0.9% 100 ML IVPB SCH (21:00)
[2018-01-16] MEDS: Rosuvastatin 10 MG TAB PO SCH (21:05)
[2018-01-17] MEDS ORDERED: traMADol HCl 50 MG TAB PO SCH (02:15)
[2018-01-17 05:12] LABS: #Eosinphils 0.1 thou/uL (0.0-0.7); #Lymphocytes 2.3 thou/uL (1.20-3.40); #Monocytes 1.5 thou/uL (0.11-0.59); #Neutrophils 7.2 thou/uL (1.40-6.50); %Basophils 0.2 % (0.0-1.0); %Eosinophils 0.9 % (0.0-10.0); %Lymphocytes 20.8 % (21.0-51.0); %Monocytes 13.2 % (0.0-10.0); %Neutrophils 64.9 % (42.0-75.0); Mean Corpuscular HGB CONC 35.1 g/dL (32.0-36.0); Mean Corpuscular Hemoglobin 31.5 pg (27.0-31.0); Mean Corpuscular Volume 89.7 fL (78.0-98.0); Mean Platelet Volume 6.8 fL (7.4-10.4); Platelet Count 138 thou/uL (130-400); RBC Distribution Width 13.5 % (11.5-14.5); Red Blood Cell (RBC) Count 3.49 mill/uL (4.20-5.40); White Blood Cell (WBC) Count 11.1 thou/uL (4.8-10.8)
[2018-01-17 05:25] LABS: ALT (SGPT) 17 U/L (8-55); AST (SGOT) 22 U/L (5-34); Albumin 2.9 g/dL (3.4-4.8); Alkaline Phosphatase 68 U/L (40-150); Anion Gap 12 mmol/L (10-20); BUN (Urea Nitrogen) 19 mg/dL (9.8-20.1); Bilirubin, Total 0.7 mg/dL (0.2-1.2); Calc. Creatinine Clearance 52 mL/min (70-130); Calcium 8.2 mg/dL (7.8-10.44); Carbon Dioxide 20 mmol/L (23-31); Chloride 107 mmol/L (98-107); Estimated GFR-MDRD 56; Globulin 3.8 g/dL (2.4-3.5); Glucose 142 mg/dL (83-110); Potassium 3.5 mmol/L (3.5-5.1); Protein, Total 6.7 g/dL (6.0-8.3); Sodium 135 mmol/L (136-145)
[2018-01-17] MEDS: Levothyroxine Sodium 88 MCG TAB PO SCH (06:06)
[2018-01-17] MEDS: Carvedilol 6.25 MG TAB PO SCH ×2 (08:37→16:19)
[2018-01-17] MEDS: Famotidine 20 MG TAB PO SCH (08:46)
[2018-01-17] MEDS: Aspirin 81 mg Enteric Coated Tablet PO SCH (08:47)
[2018-01-17] MEDS: Ferrous Sulfate 325 MG TAB PO SCH (08:47)
[2018-01-17] MEDS: Potassium Chloride 10 MEQ TAB PO SCH ×2 (08:47→16:25)
[2018-01-17] MEDS: Cefepime 1 GM in Sodium Chloride 0.9% 100 ML IVPB SCH ×2 (08:48→22:34)
[2018-01-17] MEDS: Enoxaparin Sodium 40 MG/0.4 ML SYRINGE SC SCH (08:49)
[2018-01-17] MEDS: Alogliptin 6.25 MG TAB PO SCH ×2 (08:51→22:34)
--- NOTE | 2018-01-17 09:01 | PDOC.PN ---
- Subjective Encounter Start Date: 01/17/18 Encounter Start Time: 08:59 Doing a little bit better today. Had some pain in the chest last night that radiated in all directions. Tramadol helped. - Objective Resuscitation Status: Resuscitation Status FULL:Full Resuscitation Vital Signs & Weight: Vital Signs (12 hours) Temp Pulse Resp BP BP Pulse Ox 01/17/18 08:37 110/69 01/17/18 07:35 97.9 F 69 20 110/69 95 01/17/18 04:00 98.6 F 70 16 147/76 H 96 01/17/18 00:00 98.4 F 74 14 132/77 98 Weight Weight 148 lb I&O: 01/16/18 01/17/18 01/18/18 06:59 06:59 06:59 Intake Total 20 610 Balance 20 610 Result Diagrams: 01/17/18 04:25 01/17/18 04:25 Additional Labs: Accuchecks 01/17/18 01/16/18 01/16/18 05:48 21:47 16:49 POC Glucose 135 H 196 H 180 H 01/16/18 12:21 POC Glucose 195 H Phys Exam - Physical Examination Constitutional: NAD Neck: no JVD, supple Respiratory: no wheezing, no rales, no rhonchi, clear to auscultation bilateral Cardiovascular: RRR, no significant murmur, no rub Gastrointestinal: soft, non-tender, no distention, positive bowel sounds Musculoskeletal: no edema TTP in the parasternal areas bilaterally. Neurological: non-focal Psychiatric: normal affect, A&O x 3 Dx/Plan (1) Citrobacter infection Code(s): A49.8 - OTHER BACTERIAL INFECTIONS OF UNSPECIFIED SITE Status: Acute Comment: UTI. Change Rocephin to Cefepime. (2) UTI (urinary tract infection) Status: Acute Comment: Had some associated AMS. Improved. BC negative so far. If remain negative at 48 hours, can change to po Bactrim and discharge to home. (3) Chest wall pain Code(s): R07.89 - OTHER CHEST PAIN Status: Acute Comment: Tramadol. Family believes this may be related to getting her up an loaded into the ambulance. (4) Hyperammonemia Code(s): E72.20 - DISORDER OF UREA CYCLE METABOLISM, UNSPECIFIED Status: Acute Comment: Chronic. Will continue the Lactulose. (5) Diabetes type 2, controlled Code(s): E11.9 - TYPE 2 DIABETES MELLITUS WITHOUT COMPLICATIONS Status: Chronic Qualifiers: Diabetes mellitus detention insulin use: with detention use Diabetes mellitus complication status: with kidney complications Diabetes mellitus complication detail: with chronic kidney disease Chronic kidney disease stage : stage 3 (moderate) Qualified Code(s): E11.22 - Type 2 diabetes mellitus with diabetic chronic kidney disease; N18.3 - Chronic kidney disease, stage 3 ( moderate); N18.3 - Chronic kidney disease, stage 3 (moderate); Z79.4 - residential (current) use of insulin; 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 Continue current medications. (6) Hypertension Code(s): I10 - ESSENTIAL (PRIMARY) HYPERTENSION Status: Chronic Qualifiers: Hypertension type: essential hypertension Qualified Code(s): I10 - Essential (primary) hypertension (7) Psoriasis Code(s): L40.9 - PSORIASIS, UNSPECIFIED Status: Chronic Comment: Stable. Continue home medications. (8) CKD (chronic kidney disease) Code(s): N18.9 - CHRONIC KIDNEY DISEASE, UNSPECIFIED Status: Chronic Qualifiers: Chronic kidney disease stage: stage 3 (moderate) Qualified Code(s): N18.3 - Chronic kidney disease, stage 3 (moderate) - Plan * Cefepime. * If blood cultures negative at 48 hours, will DC with po Bactrim.
[2018-01-17] MEDS: Senokot S 8.6-50 MG TAB PO SCH (09:21)
[2018-01-17] MEDS: traMADol HCl 50 MG TAB PO PRN ×2 (10:36→16:17)
[2018-01-17] MEDS: HumaLOG 300 UNITS/3 ML VIAL SC PRN (14:29)
[2018-01-17] MEDS: Furosemide 40 MG TAB PO SCH (14:53)
[2018-01-17] MEDS: Amlodipine 5 MG TAB PO SCH (14:53)
[2018-01-17] MEDS: Rosuvastatin 10 MG TAB PO SCH (22:34)
[2018-01-18 03:47] LABS: #Eosinphils 0.3 thou/uL (0.0-0.7); #Lymphocytes 1.6 thou/uL (1.20-3.40); #Monocytes 0.9 thou/uL (0.11-0.59); #Neutrophils 4.9 thou/uL (1.40-6.50); %Basophils 0.1 % (0.0-1.0); %Eosinophils 3.4 % (0.0-10.0); %Lymphocytes 21.4 % (21.0-51.0); %Monocytes 11.5 % (0.0-10.0); %Neutrophils 63.7 % (42.0-75.0); Hemoglobin 9.8 g/dL (12.0-16.0); Mean Corpuscular HGB CONC 35.5 g/dL (32.0-36.0); Mean Corpuscular Hemoglobin 31.8 pg (27.0-31.0); Mean Corpuscular Volume 89.5 fL (78.0-98.0); Mean Platelet Volume 6.5 fL (7.4-10.4); Platelet Count 121 thou/uL (130-400); RBC Distribution Width 13.3 % (11.5-14.5); Red Blood Cell (RBC) Count 3.08 mill/uL (4.20-5.40); White Blood Cell (WBC) Count 7.7 thou/uL (4.8-10.8)
[2018-01-18 03:58] LABS: ALT (SGPT) 13 U/L (8-55); AST (SGOT) 15 U/L (5-34); Albumin 2.8 g/dL (3.4-4.8); Alkaline Phosphatase 67 U/L (40-150); Anion Gap 10 mmol/L (10-20); BUN (Urea Nitrogen) 29 mg/dL (9.8-20.1); Bilirubin, Total 0.4 mg/dL (0.2-1.2); Calc. Creatinine Clearance 41 mL/min (70-130); Calcium 8.1 mg/dL (7.8-10.44); Carbon Dioxide 20 mmol/L (23-31); Chloride 106 mmol/L (98-107); Estimated GFR-MDRD 42; Globulin 3.5 g/dL (2.4-3.5); Glucose 130 mg/dL (83-110); Potassium 3.7 mmol/L (3.5-5.1); Protein, Total 6.3 g/dL (6.0-8.3); Sodium 132 mmol/L (136-145)
[2018-01-18 05:00] VITALS: TEMP 97.6
[2018-01-18] MEDS: Levothyroxine Sodium 88 MCG TAB PO SCH (06:15)
[2018-01-18] MEDS: Carvedilol 6.25 MG TAB PO SCH (09:47)
[2018-01-18] MEDS: Ferrous Sulfate 325 MG TAB PO SCH (09:48)
[2018-01-18] MEDS: Potassium Chloride 10 MEQ TAB PO SCH (09:48)
[2018-01-18] MEDS: Alogliptin 6.25 MG TAB PO SCH (09:49)
[2018-01-18] MEDS: Famotidine 20 MG TAB PO SCH (09:50)
[2018-01-18] MEDS: Aspirin 81 mg Enteric Coated Tablet PO SCH (09:50)
[2018-01-18] MEDS: Furosemide 40 MG TAB PO SCH (09:50)
[2018-01-18] MEDS: Amlodipine 5 MG TAB PO SCH (09:51)
[2018-01-18] MEDS: Cefepime 1 GM in Sodium Chloride 0.9% 100 ML IVPB SCH (09:51)
[2018-01-18] MEDS: Enoxaparin Sodium 40 MG/0.4 ML SYRINGE SC SCH (09:52)
[2018-01-18] MEDS: Senokot S 8.6-50 MG TAB PO SCH (10:00)
[2018-01-18 12:31] VITALS: BP 93/54
[2018-01-18] MEDS: HumaLOG 300 UNITS/3 ML VIAL SC PRN (14:40)
== END 2018-01-18 15:53 | disposition home or self-care (01) | DRG 690 ==
LOC: ERS 19:49 → SURG B 01-16 00:44 → OBSVTOIN 01-16 00:44
PROVIDERS: ADMIT Internal Medicine; ATTEND Internal Medicine
DX: N39.0 Urinary tract infection, site not specified (principal); E72.20 Disorder of urea cycle metabolism, unspecified; R07.89 Other chest pain; E11.22 Type 2 diabetes mellitus with diabetic chronic kidney disease; I12.9 Hypertensive chronic kidney disease with stage 1 through stage 4 chronic kidney disease, or unspecified chronic kidney disease; N18.3 Chronic kidney disease, stage 3 (moderate); Z79.4 Long term (current) use of insulin; L40.9 Psoriasis, unspecified; I25.10 Atherosclerotic heart disease of native coronary artery without angina pectoris; Z95.1 Presence of aortocoronary bypass graft; E03.9 Hypothyroidism, unspecified; E78.5 Hyperlipidemia, unspecified
CPT/HCPCS: 36415; 36416; 51701; 71045; 80048; 80053; 81003; 81015; 82140; 82553; 83605; 83880; 84484; 85025; 87040; 87077; 87086; 87186; 93005; 96365; A4216; A4353; J0692; J0696; J1650; J7050

== ENCOUNTER 2018-04-13 18:37 | Emergency (ER) | payer MEDICARE ==
[2018-04-13] MEDS ORDERED: Acetaminophen 500 MG TAB ONE (19:24)
--- NOTE | 2018-04-13 20:07 | RAD ---
THREE VIEWS RIGHT SHOULDER: 04/13/18 HISTORY: Trauma. Patient fell from standing. Right shoulder and arm pain. FINDINGS: There is osteopenia. No fracture or dislocation is seen. Vascular calcification of thoracic aorta. Me jeannine sternotomy wires are present. IMPRESSION: Osteopenia without evidence of an acute osseous abnormality. POS: [facility]
== END 2018-04-13 20:09 | disposition home or self-care (01) ==
LOC: ERS 18:37
DX: S40.011A Contusion of right shoulder, initial encounter (principal); I25.10 Atherosclerotic heart disease of native coronary artery without angina pectoris; I11.0 Hypertensive heart disease with heart failure; I50.9 Heart failure, unspecified; W18.09XA Striking against other object with subsequent fall, initial encounter

== ENCOUNTER 2018-04-26 18:38 | Inpatient (IN) | payer MEDICARE ==
[2018-04-26 19:07] LABS: #Basophils 0.1 thou/uL (0.0-0.2); #Eosinphils 0.2 thou/uL (0.0-0.7); #Lymphocytes 2.4 thou/uL (1.20-3.40); #Monocytes 0.7 thou/uL (0.11-0.59); #Neutrophils 3.1 thou/uL (1.40-6.50); %Basophils 1.3 % (0.0-1.0); %Eosinophils 2.6 % (0.0-10.0); %Lymphocytes 37.2 % (21.0-51.0); %Monocytes 10.5 % (0.0-10.0); %Neutrophils 48.4 % (42.0-75.0); Hemoglobin 13.4 g/dL (12.0-16.0); Mean Corpuscular HGB CONC 33.3 g/dL (32.0-36.0); Mean Corpuscular Hemoglobin 30.5 pg (27.0-31.0); Mean Corpuscular Volume 91.7 fL (78.0-98.0); Mean Platelet Volume 6.9 fL (7.4-10.4); Platelet Count 268 thou/uL (130-400); RBC Distribution Width 13.6 % (11.5-14.5); Red Blood Cell (RBC) Count 4.41 mill/uL (4.20-5.40); White Blood Cell (WBC) Count 6.4 thou/uL (4.8-10.8)
--- NOTE | 2018-04-26 19:30 | RAD ---
CHEST ONE VIEW: INDICATIONS: History of elevated ammonia levels with altered mental status and combativeness. COMPARISON: 01/16/2018 FINDINGS: There is stable mild cardiomegaly and post CABG change. No focal consolidation is grossly evident. Mild pleural thickening on the left is stable. Chronic lung changes are similar. No acute osseous a bnormality is evident. IMPRESSION: No definite acute cardiopulmonary abnormality. POS: [facility]
[2018-04-26 19:32] LABS: Bilirubin Negative (Negative); Blood, Urine Negative (Negative); Clarity CLOUDY (Clear); Glucose, Urine (Dipstick) Negative (Negative); Leukocyte Small (Negative); Nitrite Negative (Negative); Protein, Urine (Dipstick) 100 mg/dL (Neg-Trace); Specific Gravity, Urine 1.012 (1.002-1.036)
[2018-04-26 19:34] LABS: Bacteria/HPF 1+ HPF (None Seen); Hyaline Casts/LPF 0-3 HYALINE CAST LPF (0-3 Hyaline); Pathc Cast-AUWi Flag 0.14 (0-2.49); RBC/HPF None Seen HPF (0-3); Squamous Epithelial None Seen HPF (0-3); WBC/HPF 21-50 HPF (0-3)
[2018-04-26 19:35] LABS: ALT (SGPT) 14 U/L (8-55); AST (SGOT) 29 U/L (5-34); Alkaline Phosphatase 92 U/L (40-150); Anion Gap 19 mmol/L (10-20); BUN (Urea Nitrogen) 46 mg/dL (9.8-20.1); Bilirubin, Total 0.7 mg/dL (0.2-1.2); CK (CPK) 198 U/L (29-168); Calc. Creatinine Clearance 0 mL/min (70-130); Carbon Dioxide 18 mmol/L (23-31); Chloride 104 mmol/L (98-107); Estimated GFR-MDRD 24; Globulin 5.3 g/dL (2.4-3.5); Glucose 138 mg/dL (83-110); Lipase 16 U/L (8-78); Potassium 4.9 mmol/L (3.5-5.1); Protein, Total 9.3 g/dL (6.0-8.3); Sodium 136 mmol/L (136-145)
[2018-04-26 19:36] LABS: CKMB 2.6 ng/mL (0-6.6)
[2018-04-26] MEDS ORDERED: cefTRIAXone\\ROCEPHIN 2 GM VIAL ONE (20:46)
--- NOTE | 2018-04-26 20:57 | RAD ---
RIGHT KNEE THREE VIEWS: INDICATIONS: Altered mental status with right knee pain. FINDINGS: There is moderate to severe osteoarthrosis of the right knee. There is chondrocalcinosis. There is diffuse osteopenia. There is soft tissue swelling overlying the anterior aspect of the patellar tend on. There are enthesopathic changes of the patella. There are vascular calcifications in the pricing coordinator ior soft tissues. IMPRESSION: 1. Anterior knee soft tissue swelling, anterior to the patella, which may reflect hematoma or possib le infectious etiology. 2. Moderate to severe osteoarthrosis of the right knee with chondrocalcinosis. POS: [facility]
--- NOTE | 2018-04-26 21:24 | CT ---
NONCONTRAST CT HEAD: 04/26/2018 HISTORY: Altered mental status. COMPARISON: 09/21/2017 FINDINGS: Again noted are chronic small vessel ischemic changes and cerebral volume loss. A tiny remote lacuna r infarction is again seen in the right basal ganglia. There is no evidence of an acute cortical inf arction, hemorrhage, mass effect, or midline shift. The ventricular system is normal in size, shape, and position. A mucus retention cyst is present in the right maxillary antrum, with small mucous re tentions in the left maxillary antrum. The calvarial structures are intact. IMPRESSION: 1. No acute intracranial abnormality is demonstrated. 2. Chronic small vessel ischemic changes and cerebral volume loss, similar to prior study. 3. Stable remote lacunar infarction in the right basal ganglia. POS: [facility]
[2018-04-26] MEDS ORDERED: Ondansetron PF 4 MG/2 ML Vial IVP PRN ×2 (21:54→22:13)
[2018-04-26] MEDS ORDERED: Acetaminophen 325 MG TAB PO PRN (21:54)
[2018-04-26] MEDS ORDERED: Acetaminophen 650 MG Suppository PR PRN (21:54)
[2018-04-26] MEDS ORDERED: traMADol HCl 50 MG TAB PO PRN (22:02)
[2018-04-26] MEDS ORDERED: Sodium Chloride 0.9% 1,000 ML IV SCH (22:13)
[2018-04-26] MEDS ORDERED: Ondansetron ODT 4 MG TAB SL PRN (22:13)
[2018-04-26] MEDS ORDERED: Non-Formulary Item 1 EACH (Levemir Flexpen [Levemir Flexpen] 35 UNIT) SC SCH (22:15)
[2018-04-26 22:23] LABS: Troponin I 0.033 ng/mL (< 0.028)
[2018-04-26 23:24] LABS: Lactic Acid 2.8 mmol/L (0.5-2.2)
[2018-04-27] MEDS ORDERED: Dextrose 50% Abboject 50 ML SYRINGE SLOW IVP PRN (00:23)
[2018-04-27] MEDS ORDERED: Dextrose 5% in Water 1,000 ML IV PRN (00:23)
[2018-04-27] MEDS ORDERED: HumaLOG 300 UNITS/3 ML VIAL SC PRN (00:23)
[2018-04-27] MEDS ORDERED: hydrALAZINE 20 MG/ML VIAL SLOW IVP PRN (00:27)
[2018-04-27] MEDS: Sodium Chloride 0.9% 1,000 ML IV SCH ×2 (00:42→17:19)
[2018-04-27 01:32] LABS: Troponin I 0.045 ng/mL (< 0.028)
[2018-04-27] MEDS: Levothyroxine Sodium 75 MCG TAB PO SCH (05:45)
[2018-04-27 05:50] LABS: Anion Gap 14 mmol/L (10-20); BUN (Urea Nitrogen) 41 mg/dL (9.8-20.1); Calc. Creatinine Clearance 31 mL/min (70-130); Calcium 8.8 mg/dL (7.8-10.44); Carbon Dioxide 16 mmol/L (23-31); Chloride 111 mmol/L (98-107); Estimated GFR-MDRD 35; Glucose 108 mg/dL (83-110); Magnesium 1.4 mg/dL (1.6-2.6); Phosphorus 3.6 mg/dL (2.3-4.7); Sodium 137 mmol/L (136-145); Uric Acid 11.2 mg/dL (2.6-6.0)
--- NOTE | 2018-04-27 06:03 | HP ---
CHIEF COMPLAINT: The patient is being sent by family to be evaluated for alteration of awareness. HISTORY OF PRESENT ILLNESS: This is a 78-year-old female with past medical history of recurrent UTIs , hyperammonemia, diabetes mellitus type 2, chronic kidney disease stage 3, coronary artery disease, presenting with alteration of awareness per electronic medical records and family history. The patie nt normally gets this alteration of awareness every couple of months, also within the year. Last yina e, the patient experienced this alteration of awareness was 01/16/2018. Patient at that time was adm itted and was worked up and the patient was found to have a UTI and elevated ammonia levels. Patient was then treated and the patient was sent home after treatment. Now, the patient is coming back wit h similar symptoms of confusion and elevated ammonia levels. Patient denies any fever, nausea, vomit ing, diarrhea. Patient is oriented to person, sometimes oriented to place, but is not oriented to ti me. Patient is confused. Of note, the patient was seen in 07/01/2017 and patient was worked up. During that time, patient rec eived an echo, which showed the patient has ejection fraction of 50-55%. REVIEW OF SYSTEMS: Unable to be obtained due to patient's mental status. PAST MEDICAL HISTORY: Per electronic medical records, patient has a past medical history of coronary artery disease, CHF, type 2 diabetes mellitus, hypertension, psoriasis, elevated ammonia levels. PAST SURGICAL HISTORY: Patient has coronary artery disease, status post CABG, 4 vessels; hysterectom y; right ankle surgery, status post fracture. Surgical history of cardiac ablation. PSYCHIATRIC HISTORY: No psych history. SOCIAL HISTORY: Patient denies alcohol use. The patient denies illicit drug use. The patient denie s any smoking history. The patient lives at home with . ALLERGIES: HYDROCODONE, NAPROXEN. CURRENT MEDICATIONS: Unable to obtain current medications from the patient. PHYSICAL EXAMINATION: VITAL SIGNS: Blood pressure is 136/42, pulse of 80, respiratory rate of 18, O2 sat is 95, temperatur e of 98.5. GENERAL: The patient is lying in bed. Patient is able to state her name. Patient is able to state that she is in the hospital, but patient was not able to state what year we are in and who is the pre sident of the [place]. Patient is able to speak in full sentences. The patient does not appea r to be in any distress. HEENT: Normocephalic, atraumatic. Pupils are equally round and reactive to light. Extraocular move ments are intact. EYES: No scleral icterus. Mucous membranes are dry. NECK: Supple, full range of motion. No JVD. Trachea is midline. LUNGS: Clear to auscultation bilaterally. No wheezing, no rales, no rhonchi appreciated. CARDIOVASCULAR: Positive S1, S2. Regular rate and rhythm. No murmurs, no gallops, no rubs apprecia dayami. ABDOMEN: Soft, nontender, nondistended, obese abdomen, positive bowel sounds in all quadrants. EXTREMITIES: Patient have 5/5 upper extremity strength, good pulses at the upper extremity. Lower e xtremity: 5/5 lower extremity strength. Patient has a right knee hematoma at the anterior aspect. Good range of motion at the left lower extremity compared to the right. NEUROLOGIC: The patient is alert, oriented x2, no focal neurologic deficit is noted. SKIN: Warm, dry, and intact. PSYCHIATRIC: Normal affect. EKG: A 12-lead EKG shows normal sinus rhythm, rate of 79 with no ectopics, conduction normal, ST seg ment normal, T wave is normal. There is a possible inferior infarct, age undetermined. IMAGING: CT of the head is negative, no bleed, no mass, no acute ischemic stroke, no acute changes. Remote lacunar infarct is again seen. Chest x-ray shows no infiltrates, no pneumothorax, no hemotho rax, no masses, no cardiomegaly, no CHF, no effusion, no free air. LABORATORY DATA: WBC is 6.4, hemoglobin is 13.4, hematocrit is 40.4, RDW is 13.6, MCV is 91.7, plate let count is 268. Sodium 136, potassium 4.9, chloride is 104, carbon dioxide of 18, anion gap of 19, BUN is 46, creatinine is 2.02, GFR is 24, glucose is 138. Lactic acid is 4.0, repeat is 2.8, AST 29 , ALT 14. Ammonia level 120. Creatine kinase 198, troponin 0.030, 0.033, 0.045. BNP is 110.7. Lip ase is 16. Urinalysis positive for leukocyte esterase. ASSESSMENT AND PLAN: This is a 78-year-old female being admitted for; 1. Encephalopathy, most likely metabolic in nature. Patient's ammonia level is elevated at 120. At this point, we are going to continue patient on lactulose and we are going to add rifaximin. We robbie l continue to monitor the patient. 2. Elevated troponins. We are going to follow up patient's troponins. Troponin for the patient is currently at baseline. We will monitor the patient closely. 3. Urinary tract infection. We are going to start the patient on antibiotics. We are going to estrellita tor the patient closely. We will give IV fluids, gentle hydration. 4. Acute on chronic kidney disease stage 4. At this time, we will continue patient on gentle hydrat ion. We have consulted Nephrology to follow up with their recommendations. 5. Coronary artery disease, currently stable. We will continue patient on current medications. We will continue to monitor the patient. 6. Diabetes mellitus type 2. We will do insulin sliding scale. 7. Hypertension. We will monitor patient's blood pressure closely and readjust her medication as ne eded. 8. Psoriasis. We have consulted wound care. We will continue patient on current management.
[2018-04-27 06:13] LABS: #Eosinphils 0.1 thou/uL (0.0-0.7); #Lymphocytes 1.8 thou/uL (1.20-3.40); #Monocytes 0.6 thou/uL (0.11-0.59); #Neutrophils 2.3 thou/uL (1.40-6.50); %Basophils 0.9 % (0.0-1.0); %Eosinophils 2.6 % (0.0-10.0); %Monocytes 11.6 % (0.0-10.0); %Neutrophils 47.9 % (42.0-75.0); Hemoglobin 11.2 g/dL (12.0-16.0); Mean Corpuscular HGB CONC 33.7 g/dL (32.0-36.0); Mean Corpuscular Hemoglobin 30.8 pg (27.0-31.0); Mean Corpuscular Volume 91.4 fL (78.0-98.0); Mean Platelet Volume 6.2 fL (7.4-10.4); Platelet Count 194 thou/uL (130-400); RBC Distribution Width 13.7 % (11.5-14.5); Red Blood Cell (RBC) Count 3.62 mill/uL (4.20-5.40); White Blood Cell (WBC) Count 4.9 thou/uL (4.8-10.8)
[2018-04-27 06:59] LABS: Creatinine, Urine 51.64 mg/dL (47-110); Potassium, Urine 20.5 mmol/L
[2018-04-27] MEDS ORDERED: Torsemide 20 MG TAB PO SCH (09:00)
[2018-04-27] MEDS: Famotidine 20 MG TAB PO SCH (09:44)
[2018-04-27] MEDS: Carvedilol 6.25 MG TAB PO SCH ×2 (09:45→17:17)
[2018-04-27] MEDS: Rifaximin 550 MG TAB PO SCH ×2 (09:45→20:53)
[2018-04-27] MEDS: Aspirin 81 mg Enteric Coated Tablet PO SCH (09:45)
[2018-04-27] MEDS: Ferrous Sulfate 325 MG TAB PO SCH (09:46)
[2018-04-27] MEDS: Famotidine/PF 20 mg/2ml Vial SLOW IVP SCH (09:46)
[2018-04-27] MEDS: Amlodipine 5 MG TAB PO SCH (09:46)
[2018-04-27] MEDS: Heparin 5,000 UNITS/ML VIAL SC SCH ×2 (09:46→20:52)
--- NOTE | 2018-04-27 11:51 | ULT ---
BILATERAL RENAL ULTRASOUND: History: Renal failure. FINDINGS: The right kidney measures 9 cm in length and the left kidney measures 9.4 cm in length. No hydronephr osis is seen. There is a 3 cm cyst in the right kidney. A Trevizo is seen in the urinary bladder. IMPRESSION: Right renal cyst. POS: [facility]
--- NOTE | 2018-04-27 12:04 | PQF ---
CLINICAL DOCUMENTATION IMPROVEMENT CLARIFICATION FORM: ICD-10 Updated PLEASE DO AN ADDENDUM TO THE PROGRESS NOTE WITH ANY DOCUMENTATION UPDATES OR ADDITIONS AND CARRY THROUGH TO DC SUMMARY. THANK YOU. DATE: 04/29/18 ATTN: DR. NUGENT Please exercise your independent, professional judgment in responding to the clarification form. Clinical indicators are provided on the bottom of this form for your review Please check appropriate box(es): [ x ] Sepsis due to: (Pna, UTI, gangrenous gall bladder, etc.) ____E Coli UTI__ [ ] SIRS due to non-infectious process (please specify etiology) [ ] with organ dysfunction [ ] without organ dysfunction [ ] Localized infection without sepsis [ ] Other diagnosis [ ] Unable to determine In addition, please specify: Present on Admission (POA): [ x ] Yes [ ] No [ ] Unable to determine For continuity of documentation, please document condition throughout progress notes and discharge summary. Thank You. CLINICAL INDICATORS - SIGNS / SYMPTOMS / LABS ER NOTE: "...LABS CONSISTENT WITH UTI, HYPERAMMONEMIA, AND SEPSIS" DX: "SEPSIS" ER NOTE: "PATIENT PRESENTS FOR EVALUATION OF CONFUSION" LACTIC ACID 04/26: 4.0 / 2.8 RISKS: UTI TREATMENT: IV FLUIDS (ER-PRESENT) IV ROCEPHIN (ER-PRESENT) BLOOD, URINE AND STOOL CULTURES CARDIAC MONITORING (This form is maintained as a part of the permanent medical record) 2014 [employer]. All Rights Reserved YASMIN [email or web address] Office: [phone] FELICE
[2018-04-27] MEDS: Insulin Glargine 35 UNITS in Pre-Filled Syringe 1 EACH SC SCH (13:40)
--- NOTE | 2018-04-27 17:14 | PDOC.EVN ---
Event Note - Event Note Event Note: Patient appears to be doing fairly well. Conversant. No complaints. Encephalopathy appears to be mild at the time of the exam. Heart reg. Lungs clear. Abdomen benign. Skin lesion over the chest that looks like psoriasis between the breast, but likely yeast below the breasts. Patient has had dx of psoriasis. On Humira. Concerning that the liver disease may be related to the psoriatic disease. Continue lactulose and Rifamixin and follow up urine cx.
[2018-04-27] MEDS: Rosuvastatin 10 MG TAB PO SCH (20:52)
[2018-04-27] MEDS: PARoxetine 20 MG TAB PO SCH (20:53)
[2018-04-27] MEDS: cefTRIAXone\\ROCEPHIN 2 GM in Sodium Chloride 0.9% 100 ML IVPB SCH (20:57)
--- NOTE | 2018-04-28 00:13 | CON ---
DATE OF CONSULTATION: 04/27/2018 CONSULTING PHYSICIAN: Rabia Ramírez MD REQUESTING PHYSICIAN: Dr. Suarez. REASON FOR CONSULTATION: Chronic kidney disease. IMPRESSION: 1. Chronic kidney disease, stage 3. This is likely at the baseline of this patient's renal function . 2. Mental status change in the context of hyperammonemia. 3. Metabolic acidosis likely being compounded by reexpansion acidosis in the context of normal salin e infusion. PLAN: 1. Discontinue normal saline to avoid precipitating worsening metabolic acidosis. 2. Renally dose all medications per low GFR and avoid potentially nephrotoxic agents. 3. Further management to be dependent on the clinical course. HISTORY OF PRESENT ILLNESS: History is that of 78-year-old female patient who was brought in with a complaint of mental status change according to the history, patient has been having these kind of iss ues, whereby ammonia level rise. It is not very clear why the ammonia is rising, as patient seems to have no history of liver failure. In any case, given the elevated creatinine, decision was taken to involve Renal in the management of this case. PAST MEDICAL HISTORY: Significant for coronary artery disease, CHF, type 2 diabetes, hypertension, a nd psoriasis. MEDICATIONS: Reviewed and as documented on [employer]. SOCIAL HISTORY: No alcohol, no tobacco, no illicit drug use. Living with . ALLERGIES: HYDROCODONE and NAPROXEN. REVIEW OF SYSTEMS: As documented in the body of the history. All the other systems were reviewed an d found not to be significantly related to presenting illness. PHYSICAL EXAMINATION: GENERAL: The patient was found to be ill-looking, noted with the following vital signs. VITAL SIGNS: Afebrile with temperature 97.6, pulse 78, blood pressure 156/58. HEENT: Unremarkable. CARDIOVASCULAR SYSTEM: First and second heart sounds were heard. RESPIRATORY SYSTEM: Clear to auscultation anteriorly. DIGESTIVE SYSTEM: Benign, obese abdomen. EXTREMITIES: No peripheral edema. SKIN: No new gross rash. LYMPHATICS: No peripheral lymphadenopathy. SUMMARY: A 78-year-old female patient with chronic kidney disease stage 3, who presented here with m ental status change noted with acute on chronic kidney disease which seems to be improving back to jennifer healy. Thank you for this consultation. We will follow with you.
[2018-04-28] MEDS: Levothyroxine Sodium 75 MCG TAB PO SCH (05:48)
[2018-04-28 08:39] LABS: #Basophils 0.1 thou/uL (0.0-0.2); #Eosinphils 0.4 thou/uL (0.0-0.7); #Monocytes 0.5 thou/uL (0.11-0.59); #Neutrophils 2.5 thou/uL (1.40-6.50); %Basophils 1.1 % (0.0-1.0); %Eosinophils 6.7 % (0.0-10.0); %Lymphocytes 36.5 % (21.0-51.0); %Monocytes 9.6 % (0.0-10.0); %Neutrophils 46.2 % (42.0-75.0); Hemoglobin 11.8 g/dL (12.0-16.0); Mean Corpuscular HGB CONC 31.1 g/dL (32.0-36.0); Mean Corpuscular Hemoglobin 28.6 pg (27.0-31.0); Mean Corpuscular Volume 91.8 fL (78.0-98.0); Mean Platelet Volume 7.1 fL (7.4-10.4); Platelet Count 245 thou/uL (130-400); RBC Distribution Width 13.8 % (11.5-14.5); Red Blood Cell (RBC) Count 4.15 mill/uL (4.20-5.40); White Blood Cell (WBC) Count 5.5 thou/uL (4.8-10.8)
[2018-04-28 08:56] LABS: Anion Gap 13 mmol/L (10-20); BUN (Urea Nitrogen) 33 mg/dL (9.8-20.1); Calc. Creatinine Clearance 37 mL/min (70-130); Calcium 9.1 mg/dL (7.8-10.44); Carbon Dioxide 16 mmol/L (23-31); Chloride 111 mmol/L (98-107); Estimated GFR-MDRD 43; Glucose 140 mg/dL (83-110); Potassium 4.4 mmol/L (3.5-5.1); Sodium 136 mmol/L (136-145)
[2018-04-28] MEDS: Famotidine 20 MG TAB PO SCH (09:06)
[2018-04-28] MEDS: Carvedilol 6.25 MG TAB PO SCH ×2 (09:06→16:04)
[2018-04-28] MEDS: Aspirin 81 mg Enteric Coated Tablet PO SCH (09:06)
[2018-04-28] MEDS: Rifaximin 550 MG TAB PO SCH ×2 (09:06→21:08)
[2018-04-28] MEDS: Heparin 5,000 UNITS/ML VIAL SC SCH ×2 (09:06→21:08)
[2018-04-28] MEDS: Famotidine/PF 20 mg/2ml Vial SLOW IVP SCH (09:07)
[2018-04-28] MEDS: Amlodipine 5 MG TAB PO SCH (09:07)
[2018-04-28] MEDS: Ferrous Sulfate 325 MG TAB PO SCH (09:07)
[2018-04-28] MEDS: Insulin Glargine 35 UNITS in Pre-Filled Syringe 1 EACH SC SCH (12:37)
--- NOTE | 2018-04-28 21:02 | PRG ---
DATE OF SERVICE: 04/28/2018 SUBJECTIVE: Patient seen and examined. Seems to be doing much okay, noted with the following vital signs. PHYSICAL EXAMINATION: VITAL SIGNS: Afebrile with temperature 97.2, pulse 64, blood pressure 152/65. HEENT: Unremarkable. CARDIOVASCULAR: First and second heart sounds were heard. RESPIRATORY: Clear to auscultation. DIGESTIVE: Revealed a benign abdomen. EXTREMITIES: No peripheral edema. SKIN: No new gross rash. LYMPHATICS: No peripheral lymphadenopathy. LABORATORY INVESTIGATIONS: Showed a creatinine down to 1.22. IMPRESSION: Acute on chronic kidney disease which seems to have resolved back to baseline. PLAN: 1. Continue current renal supportive measures. 2. Further management to be dependent on the clinical course.
[2018-04-28] MEDS: Rosuvastatin 10 MG TAB PO SCH (21:07)
[2018-04-28] MEDS: PARoxetine 20 MG TAB PO SCH (21:07)
[2018-04-28] MEDS ORDERED: cefTRIAXone\\ROCEPHIN 2 GM VIAL ONE (21:10)
[2018-04-28] MEDS: cefTRIAXone\\ROCEPHIN 2 GM in Sodium Chloride 0.9% 100 ML IVPB SCH (21:12)
--- NOTE | 2018-04-28 22:36 | PDOC.PN ---
- Subjective Encounter Start Date: 04/28/18 Encounter Start Time: 11:15 Feeling much better. No significant complaints. Wants to get up and moving. - Objective Resuscitation Status: Resuscitation Status FULL:Full Resuscitation Vital Signs & Weight: Vital Signs (12 hours) Temp Pulse Pulse Pulse Resp BP BP 04/28/18 21:05 98.2 F 62 20 04/28/18 16:54 65 64 133/59 L 04/28/18 16:04 152/65 H 04/28/18 15:59 97.2 F L 64 16 04/28/18 11:25 97.9 F 68 16 BP BP Pulse Ox 04/28/18 21:05 128/59 L 97 04/28/18 16:54 154/65 H 04/28/18 16:04 04/28/18 15:59 152/65 H 98 04/28/18 11:25 136/62 98 Weight Admit Weight 137 lb 11.2 oz Weight 137 lb 11.2 oz I&O: 04/27/18 04/28/18 04/29/18 06:59 06:59 06:59 Intake Total 510 1790 640 Output Total 950 1200 Balance -440 590 640 Result Diagrams: 04/28/18 08:28 04/28/18 08:28 Additional Labs: Accuchecks 04/28/18 04/28/18 04/28/18 20:53 17:23 10:47 POC Glucose 293 H 235 H 246 H 04/28/18 05:42 POC Glucose 137 H Phys Exam - Physical Examination Constitutional: NAD Respiratory: no wheezing, no rales, no rhonchi, clear to auscultation bilateral Cardiovascular: RRR, no significant murmur Gastrointestinal: soft, non-tender, no distention, positive bowel sounds Musculoskeletal: no edema Psychiatric: normal affect, A&O x 3 Deviation from normal: Psoriasis on chest between breasts. Intertrigo under breasts. Dx/Plan (1) Hyperammonemia Code(s): E72.20 - DISORDER OF UREA CYCLE METABOLISM, UNSPECIFIED Status: Acute Comment: Chronic. Prior workup with no specific etiology identified. Does not have significant liver disease. Will continue the Lactulose, Rifaximin. (2) UTI (urinary tract infection) Status: Acute Comment: E. coli. Continue Recephin. (3) CKD (chronic kidney disease) Code(s): N18.9 - CHRONIC KIDNEY DISEASE, UNSPECIFIED Status: Chronic Qualifiers: Chronic kidney disease stage: stage 3 (moderate) Qualified Code(s): N18.3 - Chronic kidney disease, stage 3 (moderate) (4) Chronic anemia Code(s): D64.9 - ANEMIA, UNSPECIFIED Status: Chronic Comment: Hb decreased, likely dilutional. She has a h/o IV iron administration. Will continue PO supplementation and monitor. (5) Diabetes type 2, controlled Code(s): E11.9 - TYPE 2 DIABETES MELLITUS WITHOUT COMPLICATIONS Status: Chronic Qualifiers: Diabetes mellitus skilled nursing insulin use: with skilled nursing use Diabetes mellitus complication status: with kidney complications Diabetes mellitus complication detail: with chronic kidney disease Chronic kidney disease stage : stage 3 (moderate) Qualified Code(s): E11.22 - Type 2 diabetes mellitus with diabetic chronic kidney disease; N18.3 - Chronic kidney disease, stage 3 ( moderate); N18.3 - Chronic kidney disease, stage 3 (moderate); Z79.4 - skilled nursing (current) use of insulin; Z79.4 - intermission coordinator (current) use of insulin; Z79.4 - intermission coordinator (current) use of insulin; Z79.4 - intermission coordinator (current) use of insulin Comment: Well controlled. Continue current medications. (6) Hypertension Code(s): I10 - ESSENTIAL (PRIMARY) HYPERTENSION Status: Chronic Qualifiers: Hypertension type: essential hypertension Qualified Code(s): I10 - Essential (primary) hypertension Comment: Achieving better control since home meds restarted. Continue amlodipine and Carvedilol. (7) Hypothyroidism Code(s): E03.9 - HYPOTHYROIDISM, UNSPECIFIED Status: Chronic Qualifiers: Hypothyroidism type: unspecified Qualified Code(s): E03.9 - Hypothyroidism , unspecified Comment: Free T4 normal. Continue levothyroxine. (8) Psoriasis Code(s): L40.9 - PSORIASIS, UNSPECIFIED Status: Chronic Comment: Stable. On Humira (9) Acute metabolic encephalopathy Code(s): G93.41 - METABOLIC ENCEPHALOPATHY Status: Resolved Comment: Resolved. Serum ammonia >100. AO today. Continue lactulose. - Plan * Improved encephalopathy. Ammonia is still high, but appears to be at baseline mentation. * Continue Lactulose and Rifaximin. * Can likely change to po abx. * May be able to discharge as early as tomorrow. * Will need Home Health with nursing and PT/OT.
[2018-04-29 04:35] LABS: #Basophils 0.1 thou/uL (0.0-0.2); #Eosinphils 0.3 thou/uL (0.0-0.7); #Lymphocytes 1.8 thou/uL (1.20-3.40); #Monocytes 0.6 thou/uL (0.11-0.59); #Neutrophils 2.8 thou/uL (1.40-6.50); %Basophils 1.1 % (0.0-1.0); %Eosinophils 4.9 % (0.0-10.0); %Neutrophils 51.1 % (42.0-75.0); Hemoglobin 10.6 g/dL (12.0-16.0); Mean Corpuscular HGB CONC 33.3 g/dL (32.0-36.0); Mean Corpuscular Hemoglobin 30.4 pg (27.0-31.0); Mean Corpuscular Volume 91.3 fL (78.0-98.0); Mean Platelet Volume 6.8 fL (7.4-10.4); Platelet Count 194 thou/uL (130-400); RBC Distribution Width 13.3 % (11.5-14.5); Red Blood Cell (RBC) Count 3.48 mill/uL (4.20-5.40); White Blood Cell (WBC) Count 5.5 thou/uL (4.8-10.8)
[2018-04-29 04:51] LABS: Anion Gap 12 mmol/L (10-20); BUN (Urea Nitrogen) 35 mg/dL (9.8-20.1); Calc. Creatinine Clearance 37 mL/min (70-130); Calcium 8.6 mg/dL (7.8-10.44); Carbon Dioxide 18 mmol/L (23-31); Chloride 112 mmol/L (98-107); Estimated GFR-MDRD 42; Glucose 81 mg/dL (83-110); Potassium 3.9 mmol/L (3.5-5.1); Sodium 138 mmol/L (136-145)
[2018-04-29] MEDS: Levothyroxine Sodium 75 MCG TAB PO SCH (05:29)
[2018-04-29] MEDS: Heparin 5,000 UNITS/ML VIAL SC SCH ×2 (08:54→21:03)
[2018-04-29] MEDS: Ferrous Sulfate 325 MG TAB PO SCH (08:56)
[2018-04-29] MEDS: Carvedilol 6.25 MG TAB PO SCH ×2 (08:56→18:37)
[2018-04-29] MEDS: Aspirin 81 mg Enteric Coated Tablet PO SCH (08:56)
[2018-04-29] MEDS: Famotidine 20 MG TAB PO SCH (08:57)
[2018-04-29] MEDS: Amlodipine 5 MG TAB PO SCH (08:57)
[2018-04-29] MEDS: Rifaximin 550 MG TAB PO SCH ×2 (11:58→21:02)
[2018-04-29] MEDS: Insulin Glargine 35 UNITS in Pre-Filled Syringe 1 EACH SC SCH (12:00)
[2018-04-29 12:27] VITALS: BMI 25.1
[2018-04-29] MEDS: HumaLOG 300 UNITS/3 ML VIAL SC PRN (13:02)
--- NOTE | 2018-04-29 18:17 | PRG ---
DATE OF SERVICE: 04/29/2018 SUBJECTIVE: The patient was examined and noted with the following vital signs. PHYSICAL EXAMINATION: VITAL SIGNS: Afebrile with temperature 98.3, pulse 62, respiratory rate of 16, blood pressure 115/65 . HEENT: Unremarkable. CARDIOVASCULAR: First and second heart sounds were heard. RESPIRATORY: Clear to auscultation. DIGESTIVE: Revealed a benign abdomen. EXTREMITIES: No peripheral edema. SKIN: No new gross rash. LYMPHATICS: No peripheral lymphadenopathy. IMPRESSION: 1. Acute on chronic kidney disease, more or less back to baseline. 2. Mild metabolic acidosis, . 3. Urinary tract infection, on treatment. PLAN: 1. We will continue current renal supportive measures. 2. Further management to be dependent on the clinical course.
--- NOTE | 2018-04-29 19:13 | PDOC.PN ---
- Subjective Encounter Start Date: 04/29/18 Encounter Start Time: 15:00 Subjective: nsg notes rev, sheryl ovn, no new c/o - Objective Resuscitation Status: Resuscitation Status FULL:Full Resuscitation Vital Signs & Weight: Vital Signs (12 hours) Temp Pulse Resp BP BP BP Pulse Ox 04/29/18 18:37 165/69 H 04/29/18 15:50 98.4 F 62 18 152/68 H 97 04/29/18 11:50 98.2 F 64 16 159/68 H 98 04/29/18 08:57 61 04/29/18 08:56 165/69 H 04/29/18 07:55 98.0 F 61 16 165/69 H 97 Weight Admit Weight 137 lb 11.2 oz Weight 137 lb 9.6 oz I&O: 04/28/18 04/29/18 04/30/18 06:59 06:59 06:59 Intake Total 1790 980 Output Total 1200 850 Balance 590 130 Result Diagrams: 04/29/18 04:20 04/29/18 04:20 Additional Labs: Accuchecks 04/29/18 04/29/18 04/28/18 10:55 05:41 20:53 POC Glucose 255 H 103 293 H Dx/Plan - Plan - Physical Examination Constitutional: NAD, seated on the edge of the hospital bed Respiratory: no wheezing, no rales, no rhonchi, clear to auscultation bilateral Cardiovascular: RRR, no significant murmur Gastrointestinal: soft, non-tender, no distention, positive bowel sounds Musculoskeletal: no edema Psychiatric: normal affect, A&O x 3 Deviation from normal: Psoriasis on chest between breasts. Intertrigo under breasts. Grossly unchanged Dx/Plan (1) Hyperammonemia Code(s): E72.20 - DISORDER OF UREA CYCLE METABOLISM, UNSPECIFIED Status: Acute Comment: Chronic. Prior workup with no specific etiology identified. Does not have significant liver disease. Will continue the Lactulose, Rifaximin. Clinically improving mentation per at bedside (2) UTI (urinary tract infection) Status: Acute Comment: E. coli. Transition from IV rocephin to an oral regimen and monitor. T/C Trevizo removal trial (3) CKD (chronic kidney disease) Code(s): N18.9 - CHRONIC KIDNEY DISEASE, UNSPECIFIED Status: Chronic Qualifiers: Chronic kidney disease stage: stage 3 (moderate) Qualified Code(s): N18.3 - Chronic kidney disease, stage 3 (moderate) Will need continued outpatient follow up (4) Chronic anemia Code(s): D64.9 - ANEMIA, UNSPECIFIED Status: Chronic Comment: Hb decreased, likely dilutional. She has a h/o IV iron administration. Will continue PO supplementation and monitor. Hemodynamically stable (5) Diabetes type 2, controlled Code(s): E11.9 - TYPE 2 DIABETES MELLITUS WITHOUT COMPLICATIONS Status: Chronic Qualifiers: Diabetes mellitus intermediate insulin use: with intermediate use Diabetes mellitus complication status: with kidney complications Diabetes mellitus complication detail: with chronic kidney disease Chronic kidney disease stage : stage 3 (moderate) Qualified Code(s): E11.22 - Type 2 diabetes mellitus with diabetic chronic kidney disease; N18.3 - Chronic kidney disease, stage 3 ( moderate); N18.3 - Chronic kidney disease, stage 3 (moderate); Z79.4 - exterminator (current) use of insulin; Z79.4 - exterminator (current) use of insulin; Z79.4 - detention (current) use of insulin; Z79.4 - detention (current) use of insulin Comment: Well controlled. Continue current medications. (6) Hypertension Code(s): I10 - ESSENTIAL (PRIMARY) HYPERTENSION Status: Chronic Qualifiers: Hypertension type: essential hypertension Qualified Code(s): I10 - Essential (primary) hypertension Comment: Achieving better control since home meds restarted. Continue amlodipine and Carvedilol. Continue to monitor (7) Hypothyroidism Code(s): E03.9 - HYPOTHYROIDISM, UNSPECIFIED Status: Chronic Qualifiers: Hypothyroidism type: unspecified Qualified Code(s): E03.9 - Hypothyroidism , unspecified Comment: Free T4 normal. Continue levothyroxine. (8) Psoriasis Code(s): L40.9 - PSORIASIS, UNSPECIFIED Status: Chronic Comment: Stable. On Humira (9) Acute metabolic encephalopathy Code(s): G93.41 - METABOLIC ENCEPHALOPATHY Status: Resolved Comment: Resolved. Serum ammonia >100. AO today. Continue lactulose on outpatient basis. - Plan Plan for D/C with HH and PT to home. D/W pt and her at bedside. Greater than 30 minutes spent coordinating patient care today. Review of Systems - Medications/Allergies Allergies/Adverse Reactions: Allergies Allergy/AdvReac Type Severity Reaction Status Date / Time naproxen sodium [From Aleve] Allergy Mild Verified 07/08/17 21:28 hydrocodone Allergy Verified 07/08/17 21:28 Medications: Current Medications Acetaminophen (Tylenol) 650 mg PO Q4H PRN PRN Reason: Headache/Fever/Mild Pain (1-3) Last Admin: 04/27/18 00:42 Dose: 650 mg Acetaminophen (Tylenol) 650 mg OK Q4H PRN PRN Reason: Headache/Fever/Mild Pain (1-3) Amlodipine Besylate (Norvasc) 5 mg PO DAILY [facility] Last Admin: 04/29/18 08:57 Dose: 5 mg Aspirin (Ecotrin) 81 mg PO DAILY [facility] Last Admin: 04/29/18 08:56 Dose: 81 mg Carvedilol (Coreg) 6.25 mg PO BID-[facility] Last Admin: 04/29/18 18:37 Dose: 6.25 mg Dextrose/Water (Dextrose 50%) 25 gm SLOW IVP PRN PRN PRN Reason: Hypoglycemia Famotidine (Pepcid) 20 mg PO QAM [facility] Last Admin: 04/29/18 08:57 Dose: 20 mg Ferrous Sulfate (Feosol) 325 mg PO DAILY [facility] Last Admin: 04/29/18 08:56 Dose: 325 mg Glucagon (Glucagon) 1 mg IM PRN PRN PRN Reason: Hypoglycemia Heparin Sodium (Porcine) (Heparin) 5,000 units SC BID [facility] Last Admin: 04/29/18 08:54 Dose: 5,000 units Hydralazine HCl (Apresoline) 10 mg SLOW IVP Q4H PRN PRN Reason: Hypertension Last Admin: 04/27/18 00:36 Dose: 10 mg Ceftriaxone Sodium 2 gm/ (Sodium Chloride) 100 mls @ 200 mls/hr IVPB Q24HR [facility] Last Admin: 04/28/18 21:12 Dose: 100 mls Insulin Glargine 35 units/ (Miscellaneous Medication) 0.35 mls @ 0 mls/hr SC 1200 [facility] Last Admin: 04/29/18 12:00 Dose: 0.35 mls Dextrose/Water (D5w) 1,000 mls @ 0 mls/hr IV .Q0M PRN PRN Reason: Hypoglycemia Insulin Human Lispro (Humalog) 0 units SC .MILD SLIDING SCALE PRN PRN Reason: Mild Correctional Scale Last Admin: 04/29/18 13:02 Dose: 4 unit Insulin Human Lispro (Humalog) 0 units SC .BEDTIME SLIDING SC PRN PRN Reason: Bedtime Correctional Scale Last Admin: 04/28/18 21:12 Dose: 3 unit Lactulose (Lactulose) 20 gm PO DAILY [facility] Last Admin: 04/29/18 08:56 Dose: 20 gm Levothyroxine Sodium (Synthroid) 75 mcg PO 0600 [facility] Last Admin: 04/29/18 05:29 Dose: 75 mcg Miscellaneous Medication (Pharmacy To Dose) 1 each IVPB PRN PRN PRN Reason: Pharmacy to dose Ondansetron HCl (Zofran) 4 mg IVP Q6H PRN PRN Reason: Nausea/Vomiting Paroxetine HCl (Paxil) 10 mg PO HS [facility] Last Admin: 04/28/18 21:07 Dose: 10 mg Rifaximin (Xifaxan) 550 mg PO BID [facility] Last Admin: 04/29/18 11:58 Dose: 550 mg Rosuvastatin Calcium (Crestor) 10 mg PO [facility] Last Admin: 04/28/18 21:07 Dose: 10 mg Sodium Chloride (Flush - Normal Saline) 10 ml IVF Q12HR PRN PRN Reason: Saline Flush Last Admin: 04/29/18 08:59 Dose: 10 ml Sodium Chloride (Flush - Normal Saline) 10 ml IVF PRN PRN PRN Reason: Saline Flush Last Admin: 04/27/18 00:37 Dose: 10 ml Tramadol HCl (Ultram) 50 mg PO Q6H PRN PRN Reason: Moderate Pain (4-6)
[2018-04-29] MEDS: Rosuvastatin 10 MG TAB PO SCH (21:02)
[2018-04-29] MEDS: PARoxetine 20 MG TAB PO SCH (21:02)
[2018-04-29] MEDS: Ciprofloxacin 500 MG TAB PO SCH (21:03)
[2018-04-30] MEDS: Levothyroxine Sodium 75 MCG TAB PO SCH (05:25)
[2018-04-30] MEDS: Ciprofloxacin 500 MG TAB PO SCH ×2 (05:25→20:21)
[2018-04-30] MEDS: Aspirin 81 mg Enteric Coated Tablet PO SCH (09:02)
[2018-04-30] MEDS: Amlodipine 5 MG TAB PO SCH (09:02)
[2018-04-30] MEDS: Ferrous Sulfate 325 MG TAB PO SCH (09:03)
[2018-04-30] MEDS: Rifaximin 550 MG TAB PO SCH ×2 (09:03→20:21)
[2018-04-30] MEDS: Carvedilol 6.25 MG TAB PO SCH ×2 (09:03→17:18)
[2018-04-30] MEDS: Famotidine 20 MG TAB PO SCH (09:03)
[2018-04-30] MEDS: Heparin 5,000 UNITS/ML VIAL SC SCH ×2 (09:04→20:22)
[2018-04-30] MEDS: Insulin Glargine 35 UNITS in Pre-Filled Syringe 1 EACH SC SCH (12:36)
[2018-04-30] MEDS: HumaLOG 300 UNITS/3 ML VIAL SC PRN ×2 (12:37→17:20)
--- NOTE | 2018-04-30 19:06 | PRG ---
DATE OF SERVICE: 04/30/2018 SUBJECTIVE: The patient was seen and examined, seems to be doing much better, noted with the followi ng vital signs. OBJECTIVE: VITAL SIGNS: Afebrile with temperature 98.2, pulse 64, respiratory 16, blood pressure (00:11), O2 sat 99%. HEENT: Unremarkable. CARDIOVASCULAR: First and second heart sounds were heard. RESPIRATORY: Clear to auscultation. DIGESTIVE: Revealed a benign abdomen. EXTREMITIES: No peripheral edema. SKIN: No new gross rash. LYMPHATICS: No peripheral lymphadenopathy. IMPRESSION: 1. Acute on chronic kidney disease which seems resolved back to baseline. 2. Urinary tract infection, on treatment. PLAN: 1. From my own standpoint, the patient is good for discharge. 2. Further management including additional planning per the clinical course and the decision of the primary team.
[2018-04-30] MEDS: PARoxetine 20 MG TAB PO SCH (20:21)
[2018-04-30] MEDS: Rosuvastatin 10 MG TAB PO SCH (20:21)
[2018-05-01] MEDS: Ciprofloxacin 500 MG TAB PO SCH (04:01)
[2018-05-01] MEDS: Levothyroxine Sodium 75 MCG TAB PO SCH (04:01)
[2018-05-01 04:05] VITALS: BP 148/66; TEMP 97.7
--- NOTE | 2018-05-04 12:43 | PQF ---
[employer] Teacher Crystal Reports Winform ViewerYANETLASHAWN RANDALL [id number] [facility]251 [id number] CLINICAL DOCUMENTATION CLARIFICATION FORM: POST DISCHARGE Addendum to original discharge summary date: ____ Late entry note date: __ Please exercise your independent, professional judgment in responding to the clarification form. Clinical indicators are provided on the bottom of this form for your review Please check appropriate box(s): HEART FAILURE: A. TYPE: [ ] Systolic / HFrEF [ ] Diastolic / HFpEF [x ] Combined Systolic / Diastolic B. ACUITY [ ] Acute [ ] Acute on Chronic [ ] Chronic [ ] Other diagnosis [ ] Unable to determine In addition, please specify: Present on Admission (POA): [ ] Yes [ ] No [ ] Unable to determine For continuity of documentation, please document condition throughout progress notes and discharge summary. Thank You. CLINICAL INDICATORS - SIGNS / SYMPTOMS / LABS past medical history: CHF- ED, h&P, consult RISKS: History of CAD/ischemic heart disease CKD Hypertension TREATMENTS: chest xray shows no chf- h&P [employer] Crystal Reports Winform Viewer(This form is maintained as a part of the permanent medical record) 2014 [employer]. All Rights Reserved [email or web address] [phone] [email or web address]
--- NOTE | 2018-05-07 16:18 | EKG ---
Test Reason : Blood Pressure : / mmHG Vent. Rate : 079 BPM Atrial Rate : 079 BPM P-R Int : 164 ms QRS Dur : 110 ms QT Int : 418 ms P-R-T Axes : 076 051 232 degrees QTc Int : 479 ms Normal sinus rhythm Possible Inferior infarct , age undetermined Possible Anterior infarct , age undetermined Abnormal ECG Confirmed by DENNISE RODRIGUEZ DO ([id number]), photographic editor COLLIN WALSH ([id number]) on 05/07/2018 4:18:11 PM Referred By: Confirmed By:DENNISE RODRIGUEZ DO
== END 2018-05-01 06:33 | disposition home or self-care (01) | DRG 871 ==
LOC: ERS 18:38 → 2NO 21:46
PROVIDERS: ADMIT Internal Medicine; ATTEND Internal Medicine
DX: A41.9 Sepsis, unspecified organism (principal); G93.41 Metabolic encephalopathy; E72.20 Disorder of urea cycle metabolism, unspecified; I13.0 Hypertensive heart and chronic kidney disease with heart failure and stage 1 through stage 4 chronic kidney disease, or unspecified chronic kidney disease; N39.0 Urinary tract infection, site not specified; N17.9 Acute kidney failure, unspecified; I50.40 Unspecified combined systolic (congestive) and diastolic (congestive) heart failure; E11.22 Type 2 diabetes mellitus with diabetic chronic kidney disease; N18.3 Chronic kidney disease, stage 3 (moderate); I25.10 Atherosclerotic heart disease of native coronary artery without angina pectoris; L40.9 Psoriasis, unspecified; B96.20 Unspecified Escherichia coli [E. coli] as the cause of diseases classified elsewhere; D64.9 Anemia, unspecified; E03.9 Hypothyroidism, unspecified; Z79.4 Long term (current) use of insulin; Z95.1 Presence of aortocoronary bypass graft
CPT/HCPCS: 36415; 36416; 51702; 70450; 71045; 76770; 80048; 80053; 81003; 81015; 82140; 82553; 82570; 83605; 83690; 83735; 83880; 84100; 84133; 84300; 84484; 84550; 85025; 87040; 87077; 87086; 87186; 87324; 87449; 93005; 96361; 96365; A4353; G8978-GP-CL; G8979-GP-CK; J0360; J0696; J1644; J3475; J7050; S0028

== ENCOUNTER 2018-07-17 19:34 | Inpatient (IN) | payer MEDICARE ==
[2018-07-17 20:15] LABS: #Basophils 0.1 thou/uL (0.0-0.2); #Eosinphils 0.3 thou/uL (0.0-0.7); #Lymphocytes 2.1 thou/uL (1.20-3.40); #Monocytes 0.8 thou/uL (0.11-0.59); #Neutrophils 3.7 thou/uL (1.40-6.50); %Basophils 0.9 % (0.0-1.0); %Eosinophils 3.9 % (0.0-10.0); %Monocytes 11.5 % (0.0-10.0); %Neutrophils 53.7 % (42.0-75.0); Hemoglobin 12.6 g/dL (12.0-16.0); Mean Corpuscular Hemoglobin 30.2 pg (27.0-31.0); Mean Platelet Volume 7.2 fL (7.4-10.4); Platelet Count 198 thou/uL (130-400); RBC Distribution Width 12.5 % (11.5-14.5); Red Blood Cell (RBC) Count 4.18 mill/uL (4.20-5.40); White Blood Cell (WBC) Count 6.9 thou/uL (4.8-10.8)
[2018-07-17] MEDS ORDERED: Ondansetron PF 4 MG/2 ML Vial ONE (20:41)
[2018-07-17 21:59] LABS: ALT (SGPT) 16 U/L (8-55); AST (SGOT) 39 U/L (5-34); Alkaline Phosphatase 116 U/L (40-150); Anion Gap 17 mmol/L (10-20); BUN (Urea Nitrogen) 39 mg/dL (9.8-20.1); Bilirubin, Total 0.5 mg/dL (0.2-1.2); Calc. Creatinine Clearance 0 mL/min (70-130); Calcium 9.9 mg/dL (7.8-10.44); Carbon Dioxide 14 mmol/L (23-31); Chloride 113 mmol/L (98-107); Estimated GFR-MDRD 26; Globulin 5.1 g/dL (2.4-3.5); Glucose 166 mg/dL (83-110); Lipase 66 U/L (8-78); Potassium 5.8 mmol/L (3.5-5.1); Protein, Total 9.1 g/dL (6.0-8.3); Sodium 138 mmol/L (136-145)
[2018-07-17 22:01] LABS: Bilirubin Negative (Negative); Blood, Urine Small (Negative); Clarity TURBID (Clear); Glucose, Urine (Dipstick) 100 mg/dL (Negative); Leukocyte Large (Negative); Nitrite Negative (Negative); Protein, Urine (Dipstick) 100 mg/dL (Neg-Trace); Specific Gravity, Urine 1.015 (1.002-1.036); Urobilinogen 0.2 mg/dL (0.2-1.0); pH, Urine 5.5 (5.0-9.0)
[2018-07-17 22:03] LABS: Bacteria/HPF 4+ HPF (None Seen); Hyaline Casts/LPF 0-3 HYALINE CAST LPF (0-3 Hyaline); Pathc Cast-AUWi Flag 0.87 (0-2.49); Squamous Epithelial 0-3 HPF (0-3)
[2018-07-17 22:04] LABS: Yeast-AUWi Flag 234.7 (0-25.0)
[2018-07-17 22:13] LABS: Yeast-All Forms 2+ HPF (None Seen)
[2018-07-17] MEDS ORDERED: Sodium Bicarb 50 MEQ/50 ML VIAL ONE (22:37)
[2018-07-17] MEDS ORDERED: Sodium Bicarb 50 MEQ/50 ML Abboject 8.4% SYRINGE ONE (22:39)
[2018-07-17 22:58] LABS: Lactic Acid 1.1 mmol/L (0.5-2.2)
[2018-07-17 22:59] LABS: Magnesium 1.8 mg/dL (1.6-2.6); Phosphorus 4.1 mg/dL (2.3-4.7)
[2018-07-17] MEDS ORDERED: cefTRIAXone\\ROCEPHIN 1 GM VIAL ONE (23:21)
[2018-07-17] MEDS ORDERED: Dextrose 5 %-0.45 % NaCl 1,000 ML IV SCH (23:45)
[2018-07-17] MEDS ORDERED: Rocuronium Bromide 10 MG/ML (10ML VIAL) ONE (23:56)
[2018-07-17] MEDS ORDERED: Ondansetron ODT 4 MG TAB SL PRN (23:57)
[2018-07-17] MEDS ORDERED: Ondansetron PF 4 MG/2 ML Vial IVP PRN (23:57)
[2018-07-18] MEDS ORDERED: Fentanyl BOLUS 250 ML IVPB PRN (00:16)
[2018-07-18] MEDS ORDERED: DISCONTINUE PREVIOUS NARCOTIC PAIN MEDICATIONS AND BENZODIAZEPINES FS SCH (00:16)
[2018-07-18] MEDS ORDERED: Lorazepam 2 MG/ML VIAL SLOW IVP PRN (00:16)
[2018-07-18] MEDS ORDERED: Morphine 2 MG/ML SYRINGE SLOW IVP PRN (00:16)
[2018-07-18] MEDS ORDERED: Propofol 1,000 MG/100 ML VIAL IV PRN (00:16)
[2018-07-18] MEDS ORDERED: fentaNYL Citrate/PF 2,000 MCG in Sodium Chloride 0.9% 60 ML IV SCH (00:16)
[2018-07-18] MEDS ORDERED: Propofol BOLUS 1,000 MG/100 ML VIAL IV PRN (00:16)
[2018-07-18] MEDS ORDERED: levETIRAcetam In NaCl (Iso-Os) 1,500 MG in Premix Bag 1 BAG IVPB SCH (00:30)
[2018-07-18] MEDS ORDERED: Sodium Chloride 0.9% 1,000 ML IV SCH (00:30)
[2018-07-18 00:39] LABS: #Basophils 0.1 thou/uL (0.0-0.2); #Eosinphils 0.2 thou/uL (0.0-0.7); #Lymphocytes 1.5 thou/uL (1.20-3.40); #Monocytes 0.5 thou/uL (0.11-0.59); #Neutrophils 3.1 thou/uL (1.40-6.50); %Basophils 1.2 % (0.0-1.0); %Lymphocytes 28.5 % (21.0-51.0); %Monocytes 9.1 % (0.0-10.0); %Neutrophils 58.3 % (42.0-75.0); Hemoglobin 12.3 g/dL (12.0-16.0); Mean Corpuscular HGB CONC 33.9 g/dL (32.0-36.0); Mean Corpuscular Hemoglobin 30.2 pg (27.0-31.0); Mean Platelet Volume 6.3 fL (7.4-10.4); Platelet Count 176 thou/uL (130-400); RBC Distribution Width 12.5 % (11.5-14.5); Red Blood Cell (RBC) Count 4.09 mill/uL (4.20-5.40); White Blood Cell (WBC) Count 5.3 thou/uL (4.8-10.8)
[2018-07-18 00:42] LABS: Actual Bicarbonate (HCO3a) 16.2 mEq/L (22-28); Base Excess (BEa) -7.4 mEq/L (-2.0 to +3.0); CO2 Tension 27.4 mmHg (35.0-45.0); Calcium, Ionized 1.22 mmol/L (1.12-1.30); Hemoglobin (Hb) 11.8 g/dL (12.0-16.0); O2 Tension (PaO2) 202.8 mmHg (> 70.0); Potassium - ABG Lab 3.88 mmol/L (3.70-5.30); pH, Arterial 7.39 (7.35-7.45)
[2018-07-18 00:44] LABS: Puncture Site LBA
[2018-07-18 00:47] LABS: PTT 27.7 SEC (22.9-36.1); Prothrombin Time 13.7 SEC (12.0-14.7)
[2018-07-18 01:00] LABS: ALT (SGPT) 18 U/L (8-55); AST (SGOT) 36 U/L (5-34); Albumin 3.7 g/dL (3.4-4.8); Alkaline Phosphatase 110 U/L (40-150); Anion Gap 15 mmol/L (10-20); BUN (Urea Nitrogen) 38 mg/dL (9.8-20.1); Bilirubin, Total 0.5 mg/dL (0.2-1.2); Calc. Creatinine Clearance 0 mL/min (70-130); Calcium 9.7 mg/dL (7.8-10.44); Carbon Dioxide 17 mmol/L (23-31); Chloride 115 mmol/L (98-107); Estimated GFR-MDRD 26; Globulin 4.2 g/dL (2.4-3.5); Glucose 174 mg/dL (83-110); Potassium 4.1 mmol/L (3.5-5.1); Protein, Total 7.9 g/dL (6.0-8.3); Sodium 143 mmol/L (136-145)
[2018-07-18] MEDS ORDERED: Labetalol HCl 100 MG/20 ML VIAL SLOW IVP PRN (03:09)
[2018-07-18] MEDS ORDERED: hydrALAZINE 20 MG/ML VIAL SLOW IVP PRN (03:09)
[2018-07-18] MEDS ORDERED: SYSTANE 3.5 GM TUBE EA EYE PRN (03:26)
[2018-07-18] MEDS ORDERED: Dextrose 50% Abboject 50 ML SYRINGE SLOW IVP PRN (03:26)
[2018-07-18] MEDS ORDERED: Insulin Regular 300 UNITS/3 ML VIAL SC PRN (03:26)
[2018-07-18] MEDS ORDERED: Ondansetron ODT 4 MG TAB PO PRN (03:34)
[2018-07-18] MEDS ORDERED: Ondansetron PF 4 MG/2 ML Vial IVP PRN (03:34)
[2018-07-18] MEDS ORDERED: cloNIDine 0.1 MG TAB PO PRN (03:37)
--- NOTE | 2018-07-18 03:40 | PDOC.EVN ---
Event Note - Event Note Event Note: Update - D/W daughter - Patient has not been taking Lactulose for last 2 days due to diarrhea(from "stomach virus"
[2018-07-18] MEDS ORDERED: Carvedilol 25 MG TAB PER TUBE SCH (03:45)
[2018-07-18] MEDS ORDERED: cloNIDine 0.1mg/24 Hour PATCH TD SCH (04:00)
[2018-07-18] MEDS: Sodium Bicarbonate 100 MEQ in Dextrose 5% in Water 1,000 ML IV SCH ×2 (04:14→18:25)
--- NOTE | 2018-07-18 04:18 | HP ---
PRIMARY CARE PHYSICIAN: [facility]. CHIEF COMPLAINT: Altered mentation. HISTORY OF PRESENT ILLNESS: The patient is a 78-year-old female with chronic kidney disease, hypertension, diabetes mellitus type 2, and elevated ammonia in the past, presented to the emergency room by her family with altered mentation. History obtained from the record. No family at the bedside. The daughter reported that she was not acting normal earlier today. She was confused. She was to her baseline last Thursday when her daughter visited her. She also had some diarrhea. No other information is available from the patient. No fever, chills, or any other complaint reported by the family. In the emergency room, her vital signs showed temperature 97.9, respirations 20, pulse rate of 89 with a blood pressure of 199/93 with O2 saturation 99% on room air. She was found to have elevated ammonia at 150. She received lactulose with 1 amp of sodium bicarbonate and Zofran in the emergency room. On her way to the floor, the patient developed seizure-like activity followed by unresponsiveness requiring endotracheal intubation. The patient is currently intubated and sedated on mechanical ventilation. PAST MEDICAL HISTORY: 1. History of hyperammonemia of unclear etiology. 2. Diabetes mellitus type 2. 3. Hypertension. 4. Hospitalization for metabolic encephalopathy secondary to UTI and hyperammonemia in April of last year. 5. CKD stage 3. 6. Psoriasis. PAST SURGICAL HISTORY: 1. Coronary artery disease, status post CABG. 2. Hysterectomy. 3. Right ankle surgery, status post fracture. 4. Cardiac ablation. ALLERGIES: THE PATIENT IS ALLERGIC TO HYDROCODONE AND NAPROXEN. CURRENT HOME MEDICATIONS: 1. Aspirin 81 mg daily. 2. Pepcid 40 mg daily. 3. Irbesartan 150 mg daily. 4. Lactulose 30 g b.i.d. 5. Levemir 30 units daily. 6. Levothyroxine 75 mcg daily. 7. Aldactone 25 mg daily. SOCIAL HISTORY: The patient currently lives at home with her . No alcohol, tobacco, or drug use reported. She makes her own decision with the help of her family. FAMILY HISTORY: Negative for heart disease, diabetes, or malignancy. REVIEW OF SYSTEMS: Cannot be reliably obtained from the patient due to current cognitive status. PHYSICAL EXAMINATION: VITAL SIGNS: As discussed above. GENERAL: A 78-year-old female, intubated and sedated on mechanical ventilation. HEENT: Head, atraumatic and normocephalic. Sclerae are anicteric. Dry mucous membranes. No oral lesions. Pupils were approximately 5 mm in diameter with sluggish response to light. NECK: Supple. No JVD appreciated. No carotid bruit. No neck stiffness. LUNGS: Showed diminished air entry at bilateral bases. HEART: S1 and S2 present. Regular rate and rhythm. No murmurs, rubs, or gallops appreciated. ABDOMEN: Soft. Bowel sounds are present. No rebound or guarding. No costovertebral angle tenderness. EXTREMITIES: No edema or calf tenderness. NEUROLOGY AND PSYCHIATRY: Could not be reliably done due to current cognitive status. SKIN: Warm and dry. LYMPH NODES: No palpable lymph nodes in the neck. PERIPHERAL VASCULAR: Radial pulses palpable bilaterally. MUSCULOSKELETAL: No joint swelling or tenderness. LABORATORY DATA FINDINGS: Ammonia 150, potassium 5.8, bicarbonate 14, BUN 36, creatinine 1.88. WBC 6.9 with hemoglobin 12.6. PT, INR, PTT normal range. Urinalysis showed greater than 50 wbc's with 4+ bacteria. Beta hydroxybutyrate was 0.13. IMAGING STUDIES: 1. Chest x-ray by my review was negative for infiltrate. 2. CT scan of the brain has been done. Report is pending at this time. 3. EKG by my review showed sinus rhythm with left ventricular hypertrophy with nonspecific ST-T wave changes in the lateral leads. IMPRESSION: 1. Toxic metabolic encephalopathy secondary to elevated ammonia/urinary tract infection. 2. Hyperkalemia secondary to metabolic acidosis. The patient is also on irbesartan and Aldactone. 3. Chronic kidney disease stage 3 with acute kidney injury. Baseline creatinine 1.1 to 1.2. 4. Elevated ammonia of unclear etiology. 5. Urinary tract infection. Urine culture in April showed E coli, which was pansensitive. 6. Acute respiratory failure secondary to #1. 7. Suspected seizure, started on Keppra. 8. Diabetes mellitus type 2. 9. Hypertension. 10. Coronary artery disease, status post coronary artery bypass graft. 11. Abnormal EKG. 12. Psoriasis. PLAN: The patient will be monitored in the intensive care unit. Pulmonary and Gastroenterology Service will be consulted. We will add troponin due to abnormal EKG. We will start her on sodium bicarbonate drip. Insulin sliding scale. Dehydration protocol. P.r.n. antihypertensives. We will hold irbesartan and Aldactone for now. We will add clonidine patch. We will discuss the plan of care with the family when they arrive. Repeat labs in a.m. Job ID: [id number]
[2018-07-18] MEDS: metroNIDAZOLE 500 MG in Premix Bag 1 BAG IVPB SCH ×3 (05:15→21:54)
[2018-07-18 06:39] LABS: Bilirubin Negative (Negative); Blood, Urine Small (Negative); Clarity TURBID (Clear); Glucose, Urine (Dipstick) 250 mg/dL (Negative); Leukocyte Large (Negative); Nitrite Negative (Negative); Protein, Urine (Dipstick) 100 mg/dL (Neg-Trace); Specific Gravity, Urine 1.015 (1.002-1.036); pH, Urine 5.5 (5.0-9.0)
[2018-07-18 06:41] LABS: Hyaline Casts/LPF 4-6 HYALINE CAST LPF (0-3 Hyaline); Squamous Epithelial 0-3 HPF (0-3)
[2018-07-18 07:05] LABS: Actual Bicarbonate (HCO3a) 16.7 mEq/L (22-28); Base Excess (BEa) -6.2 mEq/L (-2.0 to +3.0); Calcium, Ionized 1.19 mmol/L (1.12-1.30); Carboxyhemoglobin (COHb) 0.1 gm% (0.0-3.0); Hemoglobin (Hb) 10.7 g/dL (12.0-16.0); O2 Tension (PaO2) 151.1 mmHg (> 70.0); Potassium - ABG Lab 4.32 mmol/L (3.70-5.30); pH, Arterial 7.43 (7.35-7.45)
[2018-07-18 07:08] LABS: ALV-art Gradient 30.925 (0-20); CO2 Tension 25.5 mmHg (35.0-45.0); Puncture Site RRA
[2018-07-18 07:15] LABS: Yeast-AUWi Flag 276.3 (0-25.0)
[2018-07-18 07:38] LABS: Bacteria/HPF 2+ HPF (None Seen)
[2018-07-18 07:39] LABS: Trichomonas/HPF None Seen HPF (None Seen); Urine Culture Reflex Yes Yes; Yeast-All Forms 3+ HPF (None Seen)
[2018-07-18] MEDS: Amlodipine 5 MG TAB PER TUBE SCH ×2 (08:44→22:01)
[2018-07-18] MEDS: Carvedilol 25 MG TAB PER TUBE SCH ×2 (08:45→17:43)
[2018-07-18] MEDS ORDERED: DC Sedation Protocol FS ONE (08:45)
[2018-07-18] MEDS: Famotidine 20 MG TAB PER TUBE SCH (08:45)
[2018-07-18] MEDS: Insulin Glargine 10 UNITS in Pre-Filled Syringe SC SCH ×2 (08:52→21:32)
[2018-07-18] MEDS ORDERED: Prevnar 13-Val Conj/PF 0.5 ML SYRINGE IM ONE (09:00)
--- NOTE | 2018-07-18 09:48 | RAD ---
RADIOGRAPH CHEST 1 VIEW: Supine DATE: 07/18/2018. TIME: 12:03 a.m. HISTORY: A 78-year-old female status post intubation. COMPARISON: 04/26/2018. FINDINGS: There is no air space density or pulmonary edema. The lateral costophrenic angles are sharp. Supine positioning makes this study insensitive for pneumothorax detection. An endotracheal tube has been i ntroduced into the midthoracic trachea. NG tube has been placed into the proximal stomach. Again no dayami are the sternotomy wires. IMPRESSION: 1. No acute pulmonary findings. 2. Status post intubation with endotracheal tube, and nasogastric tube placement. teofilo [] POS: DARIEN
--- NOTE | 2018-07-18 11:00 | CON ---
DATE OF CONSULTATION: 07/17/2018 CONSULTING PHYSICIAN: Dr. Sharma. REASON FOR CONSULTATION: Acute respiratory failure. Following encompasses 35 minutes of critical care time. HISTORY OF PRESENT ILLNESS: This is a 78-year-old female, who was admitted to the hospital yesterday with altered mental status. She has a history of hyperammonemia of unclear etiology. She takes lactulose to control that, but had stopped that in the last several days because of developing diarrhea from gastrointestinal illness. The patient had seizure-type episode on the way to the floor. She was intubated and placed on mechanical ventilation. PAST MEDICAL HISTORY: 1. Hyperammonemia of unclear etiology. 2. Diabetes mellitus, type 2. 3. Hypertension. 4. Previous metabolic encephalopathy. 5. Chronic kidney disease. 6. Psoriasis. PAST SURGICAL HISTORY: 1. Coronary artery bypass grafting surgery. 2. Hysterectomy. 3. Right ankle surgery. 4. Cardiac ablation. ALLERGIES: HYDROCODONE AND NAPROXEN. MEDICATIONS PRIOR TO ADMISSION: 1. Aspirin 81 mg daily. 2. Pepcid 40 mg daily. 3. Irbesartan 150 mg daily. 4. Lactulose b.i.d. 5. Levemir 30 units daily. 6. Levothyroxine 75 mcg daily. 7. Aldactone 25 mg daily. SOCIAL HISTORY: Has no habits to speak of. Lives at home with her . FAMILY MEDICAL HISTORY: Negative. REVIEW OF SYSTEMS: Cannot be obtained. The patient is currently on mechanical ventilation. PHYSICAL EXAMINATION: VITAL SIGNS: Temperature 97.7, pulse 55, blood pressure 98/49, and O2 saturation 100%. Intake 661, output 620. GENERAL: She is sedated on propofol. HEENT: Pupils reactive. Sclerae anicteric. Oropharynx clear. NECK: No adenopathy, JVD, or bruits. LUNGS: Clear anteriorly. CARDIAC: S1 and S2 regular without audible murmur. ABDOMEN: Soft and nontender. EXTREMITIES: No edema. SKIN: She has psoriatic changes over her thighs. LABORATORY DATA: Initial ammonia was 150, now 88. Sodium 143, potassium 4.1, chloride 115, CO2 of 17, BUN 38, creatinine 1.8, glucose 174. Total bilirubin is 0.5. A pH 7.43, pCO2 of 25, pO2 of 151 that was on SIMV rate 12, tidal volume 500, PEEP 5, pressure support 10, FiO2 of 30%. White blood cell count 5.3, hematocrit 36.4, and platelet count 176. DIAGNOSTIC DATA: Her chest x-ray shows no mass, effusion, or infiltrate. Brain CT was negative. ASSESSMENT: 1. High ammonia level. 2. Seizure episode. 3. Gastrointestinal illness. 4. Acute respiratory failure, requiring mechanical ventilation. PLAN: 1. The patient will continue on lactulose. 2. We will hold her sedation and see if she is awake enough to be extubated. 3. Continuing Keppra for seizure activity. 4. Insulin for control blood sugars. 5. Ventilator parameters are currently adequate. I do not anticipate her being intubated for very long. Job ID: [id number]
[2018-07-18] MEDS ORDERED: Rifaximin 550 MG TAB PO SCH (13:00)
--- NOTE | 2018-07-18 13:15 | CON ---
DATE OF CONSULTATION: 07/18/2018 GI INPATIENT CONSULTATION NOTE REQUESTING PHYSICIAN: Ross Sharma MD. REASON FOR CONSULTATION: Hepatic encephalopathy. HISTORY OF PRESENT ILLNESS: Sowmya Sung is a 78-year-old woman who was admitted to the hospital overnight with altered mental status. She had previously seen my GI colleague, Dr. Henri Escobedo. She has had several episodes of brief hospitalizations for metabolic encephalopathy in association with hyperammonemia. She had an extensive serologic workup and imaging workup to evaluate for liver disease within the past year or so. This was evidently all negative. Note that her INR and albumin are normal. She has never had any manifestations of pulmonary hypertension or any history of ascites. Dr. Escobedo had actually planned to send her for diagnostic liver biopsy last year, but this never ended up getting done. At any rate, the patient has some chronic encephalopathic symptoms at baseline. Usually takes lactulose. However, for the past couple of days, she developed increased diarrhea and so was holding her lactulose for the past couple of days. She became acutely more confused yesterday and was brought to the emergency department. She received lactulose and was being admitted to the floor when she developed seizure-like activity in the elevator and was actually sent straight to the ICU. She required endotracheal intubation and mechanical ventilation. She was able to be extubated this morning. Her ammonia level was elevated to 150 and is now declined to 88 after lactulose administration through an orogastric tube. The orogastric tube has since been removed. Other labs are suggestive of urinary tract infection, so she is on antibiotics. She has been afebrile. REVIEW OF SYSTEMS: Unable to obtain due to the patient's obtunded status. PAST MEDICAL HISTORY: Hyperammonemia of unclear etiology, diabetes type 2, hypertension, prior episodes of metabolic encephalopathy, chronic kidney disease, psoriasis, coronary artery disease with coronary artery bypass graft surgery, hysterectomy, right ankle surgery, cardiac ablation. ALLERGIES: HYDROCODONE AND NAPROXEN. HOME MEDICATIONS: 1. Aspirin 81 mg daily. 2. Pepcid 40 mg daily. 3. Irbesartan 150 mg daily. 4. Lactulose 30 g b.i.d. 5. Levemir insulin 30 units daily. 6. Levothyroxine 75 mcg daily. 7. Aldactone 25 mg daily. SOCIAL HISTORY: The patient lives at home with her . No alcohol, drug, or tobacco use. FAMILY HISTORY: Noncontributory. PHYSICAL EXAMINATION: VITAL SIGNS: Temperature 97.7, heart rate 62, blood pressure 148/47, 100% oxygen saturation on room air. GENERAL: A 78-year-old woman lying in bed comfortably, obtunded. She does not arouse to voice, but does start to physical stimulation. SKIN: No jaundice. No rashes were palpable. EYES: No scleral icterus. Extraocular movements intact. ENT: Mucous membranes moist. No oral lesions. LYMPH: No submandibular or supraclavicular lymphadenopathy. THYROID: Nontender to palpation. HEART: Regular rate and rhythm. LUNGS: Clear to auscultation bilaterally. ABDOMEN: Nondistended. Bowel sounds present. Soft, nontender to palpation throughout. EXTREMITIES: No peripheral edema. VESSELS: Radial pulses 2+ bilaterally. NEURO: She does not follow commands. LABORATORY STUDIES: WBC 5.3, hemoglobin 12.3, platelets 176. INR 1.0. Sodium 143, potassium 4.1, BUN 38, creatinine 1.87, this is about her baseline. Glucose 274, calcium 9.7, total bilirubin 0.5, alkaline phosphatase 110, AST mildly elevated to 36, ALT 18, albumin normal at 3.7, lipase normal at 66. Ammonia initially 150, now down to 88. Urinalysis shows greater than 50 wbc's. Beta-hydroxybutyrate only 0.13. IMAGING STUDIES: Chest x-ray showed no acute processes. CT of the head report is not yet transcribed. ASSESSMENT AND PLAN: 1. Metabolic encephalopathy, likely representing hepatic encephalopathy. 2. Hyperammonemia. 3. Seizure, single episode upon hospital admission. Regarding this current episode, it is likely that her encephalopathy was precipitated by urinary tract infection as well as nonadherence to lactulose over the past couple of days. She is now receiving antibiotics as well as lactulose. If she is not able to wake up enough to take her lactulose by mouth for next scheduled dose, nasogastric tube is going to have to be passed again. Expect the mental status to rapidly improve as it has with treatment of prior episodes. I think she might be a good candidate for consideration of adding rifaximin 550 mg b.i.d. as further prophylaxis against encephalopathy episodes. With regard to the etiology of her hyperammonemia, Dr. Escobedo has worked this up extensively in the past. Note, she has no other manifestations of cirrhosis or significant liver disease, but the suspicion that she probably does have some degree of cirrhosis. He had planned on liver biopsy in the outpatient setting at some point. This can be discussed in consultation with Dr. Escobedo further in the future. I am going to go ahead and add oral rifaximin at least while she is here. GI will follow along. Thank you for the consultation. Please call anytime with questions or concerns. Job ID: [id number]
[2018-07-18] MEDS: Insulin Regular 300 UNITS/3 ML VIAL SC PRN ×2 (13:25→17:48)
[2018-07-18] MEDS ORDERED: diphenhydrAMINE 50 MG/ML VIAL IVP SCH (16:15)
[2018-07-18] MEDS ORDERED: Famotidine/PF 20 mg/2ml Vial SLOW IVP SCH (16:15)
--- NOTE | 2018-07-18 16:30 | CT ---
PRELIMINARY REPORT/[facility]/EMERGENTY AFTER-HOURS PROCEDURE CT Head Without Contrast EXAM DATE/TIME: 07/18/2018 1:03 AM CLINICAL HISTORY: 78 years old, female; Signs and symptoms; Altered mental status/memory loss; Patient HX: Ams/confusio n TECHNIQUE: Axial computed tomography images of the head/brain without contrast. COMPARISON: CT Brain WO Con 04/26/2018 8:35 PM FINDINGS: Brain: Scattered areas of hypoattenuation, likely chronic small vessel ischemic change, demyelination , or gliosis. Ventricles: Normal. Bones/joints: Normal. Sinuses: Ethmoid and left maxillary sinus disease. Mastoid air cells: Normal as visualized. Soft tissues: Normal. Vasculature: Atherosclerotic vascular calcifications. IMPRESSION: No acute intracranial abnormality. Thank you for allowing us to participate in the care of your patient. Dictated and Authenticated by: Alan Mcdermott MD 07/18/2018 1:35 AM Central Time ([place] & [place]) FINAL REPORT EMERGENCY AFTER HOURS STUDY CT BRAIN NONCONTRAST: DATE: 07/18/2018. TIME: 1:04 a.m. HISTORY: Altered mental status FINDINGS: There is no midline shift or any other mass effect. There is no evidence of acute intracranial hemor rhage, large cortical infarct, obstructive hydrocephalus, or extraaxial fluid collection. The calvar ium is intact. There is diffuse parenchymal volume loss. There are low attenuation areas in the whi te matter. These are nonspecific, but in a patient of this age, they are probably chronic ischemic w arnoldo matter changes due to microvascular atherosclerosis. There is fluid, probably due to secretions , filling the entire nasopharyngeal airway and the posterior aspect of the left nasal cavity, probabl y related to intubation. This report agrees with preliminary report by [facility]. IMPRESSION: 1) No acute intracranial findings. 2) Involutional changes and chronic ischemic white matter changes. 3) Fluid filling the entire nasopharyngeal airway and posterior aspect of the left nasal cavity. teofilo [] POS: DARIEN
[2018-07-18] MEDS: MEROPENEM 1 GM/50 ML 1 GM in Premix Bag 1 BAG IVPB SCH (17:46)
[2018-07-18] MEDS: Enoxaparin Sodium 30 MG/0.3 ML SYRINGE SC SCH (21:55)
[2018-07-18] MEDS: Rifaximin 550 MG TAB PO SCH (21:56)
[2018-07-18] MEDS ORDERED: cefTRIAXone\\ROCEPHIN 1 GM in Sodium Chloride 0.9% 100 ML IVPB SCH (23:00)
[2018-07-19] MEDS: MEROPENEM 1 GM/50 ML 1 GM in Premix Bag 1 BAG IVPB SCH ×3 (02:20→17:59)
[2018-07-19] MEDS ORDERED: Lactated Ringer's 500 ML IV SCH (03:45)
[2018-07-19] MEDS: metroNIDAZOLE 500 MG in Premix Bag 1 BAG IVPB SCH (05:57)
[2018-07-19] MEDS: Rifaximin 550 MG TAB PO SCH ×2 (07:46→20:02)
[2018-07-19] MEDS: Carvedilol 25 MG TAB PER TUBE SCH ×2 (07:46→17:59)
[2018-07-19] MEDS: Famotidine 20 MG TAB PER TUBE SCH (07:48)
[2018-07-19] MEDS: Amlodipine 5 MG TAB PER TUBE SCH (07:49)
--- NOTE | 2018-07-19 08:06 | PRG ---
DATE OF SERVICE: 07/19/2018 SUBJECTIVE: The patient is currently awake, alert, and has no acute complaints. She wants to go home. OBJECTIVE: VITAL SIGNS: Temperature 97.6, pulse 61, blood pressure 144/46. A 24-hour intake 4494, output 1555. HEENT: Unremarkable. NECK: No adenopathy, JVD, or bruits. LUNGS: Clear, but distant breath sounds. CARDIAC: S1, S2. Regular. ABDOMEN: Soft. EXTREMITIES: No edema. LABORATORY DATA: No labs were done today. ASSESSMENT: 1. Transient hepatic encephalopathy from elevated ammonia level. 2. Status post respiratory failure, requiring mechanical ventilation. 3. Status post seizure episode. PLAN: The patient can be transferred out to the medical floor. There are no active pulmonary issues. If not done this morning, I would suggest rechecking her chemistry and perhaps stopping the bicarbonate drip. Job ID: [id number]
[2018-07-19 08:58] LABS: ALT (SGPT) 19 U/L (8-55); AST (SGOT) 28 U/L (5-34); Alkaline Phosphatase 94 U/L (40-150); Anion Gap 14 mmol/L (10-20); BUN (Urea Nitrogen) 32 mg/dL (9.8-20.1); Bilirubin, Total 0.6 mg/dL (0.2-1.2); Calc. Creatinine Clearance 29 mL/min (70-130); Calcium 8.3 mg/dL (7.8-10.44); Carbon Dioxide 20 mmol/L (23-31); Chloride 108 mmol/L (98-107); Estimated GFR-MDRD 31; Globulin 3.3 g/dL (2.4-3.5); Glucose 203 mg/dL (83-110); Magnesium 1.5 mg/dL (1.6-2.6); Protein, Total 6.3 g/dL (6.0-8.3); Sodium 138 mmol/L (136-145)
[2018-07-19 09:50] LABS: Band 8 % (5-11); Eosinophils 3 % (0-10); Hemoglobin 11.1 g/dL (12.0-16.0); Lymphocytes 22 % (21-51); MDiff Complete? YES; Mean Corpuscular HGB CONC 33.1 g/dL (32.0-36.0); Mean Corpuscular Hemoglobin 29.4 pg (27.0-31.0); Mean Corpuscular Volume 88.9 fL (78.0-98.0); Mean Platelet Volume 7.2 fL (7.4-10.4); Monocytes 3 % (0-10); Neutrophil 63 % (42-75); Platelet Count 144 thou/uL (130-400); RBC Distribution Width 12.5 % (11.5-14.5); RBC Morphology Normal; Reactive Lymphocytes 1 % (0-10); Red Blood Cell (RBC) Count 3.79 mill/uL (4.20-5.40); White Blood Cell (WBC) Count 6.8 thou/uL (4.8-10.8)
[2018-07-19] MEDS: Insulin Glargine 10 UNITS in Pre-Filled Syringe SC SCH ×2 (11:55→20:03)
[2018-07-19] MEDS ORDERED: Magnesium 2 GM/50 ML 2 GM in Premix Bag 1 BAG IVPB SCH (12:00)
[2018-07-19] MEDS ORDERED: Acetaminophen 325 MG TAB PO PRN (15:46)
[2018-07-19] MEDS ORDERED: traMADol HCl 50 MG TAB PO PRN (15:46)
--- NOTE | 2018-07-19 19:09 | PRG ---
DATE OF SERVICE: 07/19/2018 REASON FOR CONSULTATION: Hyperammonemia, possible cirrhosis. SUBJECTIVE: The patient states that she is doing better today with no complaints of abdominal pain and clearing of her sensorium. Currently, she is alert and oriented x4 and has had approximately 3 bowel movements today with lactulose administration. She was also started on rifaximin yesterday as well with no problems with administration today. Currently, denies any nausea, vomiting, fevers, chills, or abdominal pain. OBJECTIVE: VITAL SIGNS: Temperature 98.4, pulse 66, blood pressure 149/68, respiratory rate 18, and saturating 100% on room air. GENERAL: The patient is lying in bed, in no acute distress. Alert and oriented x4. CARDIOVASCULAR: Regular rate and rhythm. RESPIRATORY: Clear to auscultation bilaterally. ABDOMEN: Normoactive bowel sounds. Soft, nontender, and nondistended. EXTREMITIES: No cyanosis, clubbing, or edema. LABORATORY DATA: CBC with a white blood cell count of 6.8, hemoglobin 11.1, hematocrit 33.7, and platelets 144. INR 1. Chemistry with a sodium of 138, potassium 4, chloride 108, CO2 of 20, BUN 32, creatinine 1.62, and glucose 203. AST 28, ALT 19, alkaline phosphatase 94, and total bilirubin 0.6. IMAGING DATA: No current GI imaging is available for review. ASSESSMENT AND PLAN: The patient is a 78-year-old female with past medical history of diabetes, hypertension, chronic kidney disease, psoriasis, coronary artery disease status post coronary artery bypass graft, and hyperammonemia with unclear etiology, presenting with encephalopathy due to hyperammonemia. Hyperammonemia/metabolic encephalopathy: The patient has had a history of elevated ammonia within the blood stream that has periodically contributed to loss of sensorium and altered mental status on multiple different occasions that has been treated successfully with lactulose in the past. However, on this admission, she had been having increased diarrhea prior to admission and ultimately stopped taking her lactulose, resulting in a significantly elevated ammonia level, prompting admission to the hospital with altered mental status and ultimately had a seizure-like episode on admission, most likely due to her metabolic encephalopathy. At this time, the most likely etiology for precipitating this hyperammonemia would be the urinary tract infection as well as the noncompliance with the lactulose. At this point, she does not have any markers indicative of chronic liver disease including a normal bilirubin, normal INR, and normal platelet count at least in the past with a significant liver workup that was negative for obvious source of cirrhosis. With this hyperammonemia, cirrhosis is at the top of the differential and does need further evaluation, for which I had previously recommended a liver biopsy. Given the stabilization of her status, I think a liver biopsy this point would be prudent in terms to help guide further management. RECOMMENDATIONS: 1. We will continue to monitor patient for clinical status and sensorium. We would continue her lactulose administration with target goal of having approximately 3 to 4 bowel movements per day. 1. Agree with administration with rifaximin 550 mg b.i.d. as part of treatment for encephalopathy. 2. We would place order for liver biopsy tomorrow in order to determine the possible hepatic origin of hyperammonemia. If the biopsy does not show any significant liver dysfunction, then a non-GI source of her elevated ammonia level should be entertained. We will continue to follow. Please call with any questions. Job ID: [id number]
[2018-07-19] MEDS: Enoxaparin Sodium 30 MG/0.3 ML SYRINGE SC SCH (20:01)
[2018-07-19] MEDS: levETIRAcetam 500 MG TAB PO SCH (20:02)
--- NOTE | 2018-07-19 21:49 | PDOC.PN ---
- Subjective Encounter Start Date: 07/19/18 Encounter Start Time: 14:00 Patient seen and examined for encephalopathy/resp failure. Feels better. No N/V/ abd pain. No new complaints. No overnight events - Objective Resuscitation Status - Order Detail: 07/18/18 03:34 Resuscitation Status Routine Resuscitation Status: FULL: Full Resuscitation MAR Reviewed: Yes Vital Signs & Weight: Vital Signs (12 hours) Temp Pulse Resp BP BP Pulse Ox 07/19/18 20:00 99.3 F 67 20 113/57 L 97 07/19/18 16:00 98.4 F 66 18 149/68 H 100 07/19/18 13:30 98 07/19/18 12:15 98.5 F 60 16 132/60 07/19/18 11:00 98.4 F Weight Admit Weight 138 lb 0.15 oz Weight 141 lb 12.116 oz Most Recent Monitor Data Heart Rate from ECG 60 NIBP 114/52 NIBP BP-Mean 72 Respiration from ECG 16 SpO2 100 I&O: 07/18/18 07/19/18 07/20/18 06:59 06:59 06:59 Intake Total 661 4494 872 Output Total 620 1555 160 Balance 41 2939 712 Result Diagrams: 07/20/18 04:29 07/20/18 04:29 Additional Labs: Accuchecks 07/19/18 07/19/18 07/19/18 20:10 16:05 11:54 POC Glucose 252 H 260 H 271 H 07/19/18 07/19/18 05:33 02:32 POC Glucose 134 H 87 Phys Exam - Physical Examination Constitutional: NAD Respiratory: no wheezing, no rhonchi Cardiovascular: RRR, no rub Gastrointestinal: soft, non-tender, positive bowel sounds Musculoskeletal: no edema Neurological: non-focal, moves all 4 limbs Dx/Plan - Plan DVT proph w/SCDs IMPRESSION: 1. Toxic metabolic encephalopathy secondary to elevated ammonia/urinary tract infection. 2. Hyperkalemia. 3. WILLY on CKD 3. 4. Elevated ammonia due to noncompliance with Lactulose. 5. Ecoli Urinary tract infection. 6. Acute respiratory failure secondary to #1. 7. Suspected seizure, started on Keppra. 8. Diabetes mellitus type 2. 9. Hypertension. 10. Coronary artery disease, status post coronary artery bypass graft. 11. Abnormal EKG. 12. Psoriasis. PLAN: Cont Lactulose On Rifaximin GI following Cont other meds as below AM labs Cont Atbx Review of Systems - Review of Systems Respiratory: negative: Cough, Dry, Shortness of Breath, Hemoptysis, SOB with Excertion, Pleuritic Pain, Sputum, Wheezing Cardiovascular: negative: chest pain, palpitations, orthopnea, paroxysmal nocturnal dyspnea, edema, light headedness, other Gastrointestinal: negative: Nausea, Vomiting, Abdominal Pain, Diarrhea, Constipation, Melena, Hematochezia, Other - Medications/Allergies Allergies/Adverse Reactions: Allergies Allergy/AdvReac Type Severity Reaction Status Date / Time naproxen sodium [From Aleve] Allergy Mild Verified 07/18/18 01:49 ceftriaxone [From Rocephin] Allergy Unknown Verified 07/18/18 06:01 hydrocodone Allergy Verified 07/08/17 21:28 Medications: Current Medications Acetaminophen (Tylenol) 650 mg PO Q8H PRN PRN Reason: Headache/Fever or Mild Pain Last Admin: 07/19/18 18:01 Dose: 650 mg Aspirin (Ecotrin) 81 mg PO DAILY [facility] Carvedilol (Coreg) 12.5 mg PER TUBE BID-[facility] Last Admin: 07/19/18 17:59 Dose: 12.5 mg Clonidine (Catapres) 0.1 mg PO Q4H PRN PRN Reason: Systolic BP > 180 Dextrose/Water (Dextrose 50%) 25 gm SLOW IVP PRN PRN PRN Reason: Hypoglycemia Enoxaparin Sodium (Lovenox) 30 mg SC 2100 [facility] Last Admin: 07/19/18 20:01 Dose: Not Given Famotidine (Pepcid) 40 mg PO DAILY [facility] Glucagon (Glucagon) 1 mg IM PRN PRN PRN Reason: Hypoglycemia Hydralazine HCl (Apresoline) 10 mg SLOW IVP Q4H PRN PRN Reason: SBP Greater Than 180 Insulin Glargine 10 units/ (Miscellaneous Medication) 0.1 mls @ 0 mls/hr SC BID [facility] Last Admin: 07/19/18 20:03 Dose: 0.1 mls Meropenem 1 gm/ Device 50 mls @ 100 mls/hr IVPB 0100,0900,1700 [facility] Last Admin: 07/19/18 17:59 Dose: 50 mls Insulin Human Regular (Humulin R) 0 units SC .MODERATE SLIDING SC PRN PRN Reason: Moderate Slididng Scale Last Admin: 07/18/18 17:48 Dose: 6 unit Insulin Human Regular (Humulin R) 0 units SC .BEDTIME SLIDING SC PRN PRN Reason: Bedtime Correctional Scale Labetalol HCl (Normodyne) 10 mg SLOW IVP Q4H PRN PRN Reason: Systolic BP > 180 Lactulose (Lactulose) 20 gm PO TID [facility] Last Admin: 07/19/18 20:01 Dose: 20 gm Levetiracetam (Keppra) 500 mg PO BID [facility] Last Admin: 07/19/18 20:02 Dose: 500 mg Levothyroxine Sodium (Synthroid) 75 mcg PO 0600 [facility] Mineral Oil/White Petrolatum (Systane Nighttime Eye Ointment) 0 gm EA EYE PRN PRN PRN Reason: Dry Eyes Ondansetron HCl (Zofran Odt) 4 mg PO Q6H PRN PRN Reason: Nausea/Vomiting Ondansetron HCl (Zofran) 4 mg IVP Q6H PRN PRN Reason: Nausea/Vomiting Last Admin: 07/19/18 15:36 Dose: 4 mg Paroxetine HCl (Paxil) 10 mg PO HS [facility] Rifaximin (Xifaxan) 550 mg PO BID [facility] Last Admin: 07/19/18 20:02 Dose: 550 mg Sodium Chloride (Flush - Normal Saline) 10 ml IVF Q12HR [facility] Last Admin: 07/19/18 20:37 Dose: 10 ml Sodium Chloride (Flush - Normal Saline) 10 ml IVF PRN PRN PRN Reason: Saline Flush Tramadol HCl (Ultram) 50 mg PO Q6H PRN PRN Reason: Moderate Pain (4-6)
[2018-07-20] MEDS: MEROPENEM 1 GM/50 ML 1 GM in Premix Bag 1 BAG IVPB SCH ×2 (00:42→10:21)
[2018-07-20 04:42] LABS: #Basophils 0.1 thou/uL (0.0-0.2); #Eosinphils 0.3 thou/uL (0.0-0.7); #Lymphocytes 1.6 thou/uL (1.20-3.40); #Monocytes 0.9 thou/uL (0.11-0.59); %Basophils 0.7 % (0.0-1.0); %Eosinophils 4.1 % (0.0-10.0); %Lymphocytes 23.3 % (21.0-51.0); %Monocytes 12.9 % (0.0-10.0); Hemoglobin 11.4 g/dL (12.0-16.0); Mean Corpuscular HGB CONC 33.9 g/dL (32.0-36.0); Mean Corpuscular Hemoglobin 30.8 pg (27.0-31.0); Mean Corpuscular Volume 90.7 fL (78.0-98.0); Mean Platelet Volume 6.8 fL (7.4-10.4); Platelet Count 166 thou/uL (130-400); RBC Distribution Width 12.5 % (11.5-14.5); White Blood Cell (WBC) Count 6.8 thou/uL (4.8-10.8)
[2018-07-20 04:58] LABS: ALT (SGPT) 15 U/L (8-55); AST (SGOT) 17 U/L (5-34); Albumin 2.8 g/dL (3.4-4.8); Alkaline Phosphatase 86 U/L (40-150); Anion Gap 13 mmol/L (10-20); BUN (Urea Nitrogen) 30 mg/dL (9.8-20.1); Bilirubin, Total 0.3 mg/dL (0.2-1.2); Calc. Creatinine Clearance 29 mL/min (70-130); Calcium 8.1 mg/dL (7.8-10.44); Carbon Dioxide 21 mmol/L (23-31); Chloride 108 mmol/L (98-107); Estimated GFR-MDRD 30; Globulin 3.2 g/dL (2.4-3.5); Glucose 114 mg/dL (83-110); Potassium 4.3 mmol/L (3.5-5.1); Sodium 138 mmol/L (136-145)
[2018-07-20] MEDS: Levothyroxine Sodium 75 MCG TAB PO SCH (05:30)
[2018-07-20] MEDS ORDERED: Aspirin 81 mg Enteric Coated Tablet PO SCH (09:00)
[2018-07-20] MEDS ORDERED: Miconazole 2% Cream 30 GM TUBE TOP SCH (09:00)
[2018-07-20] MEDS: Carvedilol 25 MG TAB PER TUBE SCH (10:18)
[2018-07-20] MEDS: Famotidine 20 MG TAB PO SCH (10:19)
[2018-07-20] MEDS: Insulin Glargine 10 UNITS in Pre-Filled Syringe SC SCH ×2 (10:20→21:46)
[2018-07-20] MEDS: levETIRAcetam 500 MG TAB PO SCH (10:21)
[2018-07-20] MEDS: Rifaximin 550 MG TAB PO SCH ×2 (10:26→21:46)
[2018-07-20] MEDS ORDERED: Loratadine 10 MG TAB PO SCH (15:30)
[2018-07-20] MEDS: Carvedilol 25 MG TAB PO SCH (16:08)
--- NOTE | 2018-07-20 16:58 | CON ---
DATE OF CONSULTATION: 07/20/2018 Neurology Consultation CONSULTING PHYSICIAN: Hospital Service. IMPRESSION: 1. Seizure. 2. Hyperammonemia. PLAN: Consider anticonvulsant therapy if this is a recurrent problem. HISTORY OF PRESENT ILLNESS: Ms. Sung is a 78-year-old female with history of hyperammonemia. She apparently had what was thought to be a seizure while she was standing in the elevator here at the hospital. She was subsequently admitted to the ICU. She was found to have an ammonia level of 180. She then moved up to the medical floor. She has not had any further seizures. She denies history of seizures. There is no history of stroke, meningitis, encephalitis, or concussions. PAST MEDICAL HISTORY: Otherwise, positive for arthritis. FAMILY HISTORY: Noncontributory. ALLERGIES: NAPROXEN, HYDROCODONE, AND CEFTRIAXONE. SOCIAL HISTORY: No tobacco or alcohol use. MEDICATIONS: Medication list was reviewed. REVIEW OF SYSTEMS: Ten-system review of systems was otherwise negative. PHYSICAL EXAMINATION: GENERAL: She is a well-nourished elderly lady, in no distress. VITAL SIGNS: Stable. She has been afebrile. HEENT: Within normal limits. NECK: Supple. EXTREMITIES: Without cyanosis, clubbing, or edema. NEUROLOGIC: She was alert and cooperative. Her speech is fluent and clear. Her exam is nonfocal. She walks with the use of a walker. DIAGNOSTIC DATA: CT scan of the brain without contrast was unremarkable. Laboratory studies were reviewed. SUMMARY: This is an elderly lady with her first seizure. I do not think she needs anticonvulsants at this point. I will be happy to follow up with her if there is any further problems. Job ID: [id number]
[2018-07-20] MEDS: Insulin Regular 300 UNITS/3 ML VIAL SC PRN (17:28)
--- NOTE | 2018-07-20 18:07 | PRG ---
DATE OF SERVICE: 07/20/2018 REASON FOR CONSULTATION: Hyperammonemia, possible cirrhosis. SUBJECTIVE: The patient is doing better today in terms of her sensorium. Prior examination today yielded that she was alert and oriented x2 to 3. She has had approximately 3 semi-solid bowel movements today so far as well with no difficulty with defecation. She was also started on Robaxin during this admission with no problems with administration. Currently, denies any nausea, vomiting, fevers, chills, abdominal pain, or constipation. OBJECTIVE: VITAL SIGNS: Temperature 98, pulse 64, blood pressure 116/63, respiratory rate 18, saturating 96% on room air. GENERAL: The patient is lying in bed, in no acute distress. Alert and oriented x3. CARDIOVASCULAR: Regular rate and rhythm. RESPIRATORY: Clear to auscultation bilaterally. ABDOMEN: Normoactive bowel sounds. Soft, nontender, nondistended. EXTREMITIES: No cyanosis, clubbing, or edema. LABORATORY DATA: CBC with a white blood cell count of 6.8, hemoglobin 11.4, and hematocrit 33.6, platelets 166. Chemistry with a sodium of 138, potassium 4.3, chloride 108, CO2 of 21, BUN 30, creatinine 1.64, glucose 114, AST 17, ALT 15, alkaline phosphatase 86, total bilirubin 0.3, albumin 2.8. IMAGING DATA: No current GI imaging is available for review. ASSESSMENT AND PLAN: The patient is a 78-year-old female with past medical history of diabetes, hypertension, chronic kidney disease, psoriasis, coronary artery disease status post coronary artery bypass graft, and hyperammonemia with unclear etiology, presenting with encephalopathy due to hyperammonemia. Hyperammonemia/metabolic encephalopathy. The patient has had a history of elevated ammonia over the course of the last 6 to 8 months, that has periodically contributed a loss of sensorium and altered mental status on multiple occasions. However, this has been successfully treated with the lactulose administration in the past with ultimate clearing of her sensorium with titration approximately 3 to 4 bowel movements per day; however, on this admission, she had been having increased abdominal discomfort and ultimately stopped taking her lactulose prior to admission resulting in a significantly elevated ammonia level. On admission to the hospital, she was stuporous and exhibited seizure-like activity, that required intubation and sedation and placement in the ICU for stabilization of her clinical status. At this time, she has been extubated and is doing well, having approximately 3 to 4 semi-solid liquid bowel movements per day. She was also placed on rifaximin 550 mg b.i.d. during this hospitalization and has been tolerating this well. She was due to get a liver biopsy earlier today, but this was held due to the fact that she has been taking aspirin and increased risk of bleeding while having this medication still within her system. Given the extensive liver workup in the past and continued hyperammonemia, I think a liver biopsy would be prudent in order to help guide further therapy/management; however, will need to be done safely and would wait prerequisite time of aspirin prior to obtain the sample. RECOMMENDATIONS: 1. We will continue to monitor neurological status and sensorium daily. 2. Continue with lactulose administration with target goal of having approximately 3 to 4 bowel movements per day and titration of medication as such. 3. Continue with Robaxin 550 mg b.i.d. as part of treatment for her hyperammonemia. 4. We would proceed with liver biopsy to guide further management; however, this does not need to be obtained as an inpatient and if she has a prerequisite period, this to be established prior to obtaining the sample. She can be discharged and have this procedure done as an outpatient. We will continue to follow. Please call with any questions. Job ID: [id number]
[2018-07-20] MEDS ORDERED: PARoxetine 20 MG TAB PO SCH (21:00)
[2018-07-20] MEDS: Enoxaparin Sodium 30 MG/0.3 ML SYRINGE SC SCH (21:45)
--- NOTE | 2018-07-20 23:17 | PDOC.PN ---
- Subjective Encounter Start Date: 07/20/18 Encounter Start Time: 13:00 Patient seen and examined for Encephalopathy. Somnolent intermittently. No new complaints. No overnight events - Objective Resuscitation Status - Order Detail: 07/18/18 03:34 Resuscitation Status Routine Resuscitation Status: FULL: Full Resuscitation MAR Reviewed: Yes Vital Signs & Weight: Vital Signs (12 hours) Temp Pulse Resp BP Pulse Ox 07/20/18 20:00 97.0 F L 66 20 118/63 96 Weight Admit Weight 138 lb 0.15 oz Weight 141 lb 12.116 oz Most Recent Monitor Data Heart Rate from ECG 60 NIBP 114/52 NIBP BP-Mean 72 Respiration from ECG 16 SpO2 100 I&O: 07/19/18 07/20/18 07/21/18 06:59 06:59 06:59 Intake Total 4494 1322 Output Total 1555 1110 Balance 2939 212 Result Diagrams: 07/21/18 06:58 07/21/18 06:58 Additional Labs: Accuchecks 07/20/18 07/20/18 07/20/18 20:30 16:29 12:12 POC Glucose 296 H 259 H 176 H 07/20/18 07/20/18 05:29 00:12 POC Glucose 109 166 H Phys Exam - Physical Examination Constitutional: NAD Respiratory: no wheezing, no rhonchi Cardiovascular: RRR, no rub Gastrointestinal: soft, non-tender, positive bowel sounds Musculoskeletal: no edema Neurological: moves all 4 limbs Dx/Plan - Plan DVT proph w/SCDs IMPRESSION: 1. Toxic metabolic encephalopathy secondary to elevated ammonia/urinary tract infection. 2. Hyperkalemia. 3. WILLY on CKD 3. 4. Elevated ammonia due to noncompliance with Lactulose. 5. Ecoli Urinary tract infection. 6. Acute respiratory failure secondary to #1. 7. Suspected seizure, started on Keppra. 8. Diabetes mellitus type 2. 9. Hypertension. 10. Coronary artery disease, status post coronary artery bypass graft. 11. Abnormal EKG. 12. Psoriasis. PLAN: Cont Lactulose/Rifaximin Change Atbx to PO Liver biopsy as outpt DC Keppra per Neuro Cont other meds as below AM labs DC in 1-2 days if stable Laboratory Tests 07/20/18 04:29 Ammonia 30 Review of Systems - Review of Systems Respiratory: negative: Cough, Dry, Shortness of Breath, Hemoptysis, SOB with Excertion, Pleuritic Pain, Sputum, Wheezing Cardiovascular: negative: chest pain, palpitations, orthopnea, paroxysmal nocturnal dyspnea, edema, light headedness, other - Medications/Allergies Allergies/Adverse Reactions: Allergies Allergy/AdvReac Type Severity Reaction Status Date / Time naproxen sodium [From Aleve] Allergy Mild Verified 07/18/18 01:49 ceftriaxone [From Rocephin] Allergy Unknown Verified 07/18/18 06:01 hydrocodone Allergy Verified 07/08/17 21:28 Medications: Current Medications Acetaminophen (Tylenol) 650 mg PO Q8H PRN PRN Reason: Headache/Fever or Mild Pain Last Admin: 07/19/18 18:01 Dose: 650 mg Carvedilol (Coreg) 12.5 mg PO BID-[facility] Last Admin: 07/20/18 16:08 Dose: 12.5 mg Clonidine (Catapres) 0.1 mg PO Q4H PRN PRN Reason: Systolic BP > 180 Dextrose/Water (Dextrose 50%) 25 gm SLOW IVP PRN PRN PRN Reason: Hypoglycemia Enoxaparin Sodium (Lovenox) 30 mg SC 2100 [facility] Last Admin: 07/20/18 21:45 Dose: 30 mg Famotidine (Pepcid) 40 mg PO DAILY [facility] Last Admin: 07/20/18 10:19 Dose: 40 mg Glucagon (Glucagon) 1 mg IM PRN PRN PRN Reason: Hypoglycemia Hydralazine HCl (Apresoline) 10 mg SLOW IVP Q4H PRN PRN Reason: SBP Greater Than 180 Insulin Glargine 10 units/ (Miscellaneous Medication) 0.1 mls @ 0 mls/hr SC BID [facility] Last Admin: 07/20/18 21:46 Dose: 0.1 mls Insulin Human Regular (Humulin R) 0 units SC .MODERATE SLIDING SC PRN PRN Reason: Moderate Slididng Scale Last Admin: 07/20/18 17:28 Dose: 6 unit Insulin Human Regular (Humulin R) 0 units SC .BEDTIME SLIDING SC PRN PRN Reason: Bedtime Correctional Scale Labetalol HCl (Normodyne) 10 mg SLOW IVP Q4H PRN PRN Reason: Systolic BP > 180 Lactulose (Lactulose) 20 gm PO TID [facility] Last Admin: 07/20/18 21:47 Dose: 20 gm Levofloxacin (Levaquin) 500 mg PO 0600 [facility] Levothyroxine Sodium (Synthroid) 75 mcg PO 0600 [facility] Last Admin: 07/20/18 05:30 Dose: 75 mcg Mineral Oil/White Petrolatum (Systane Nighttime Eye Ointment) 0 gm EA EYE PRN PRN PRN Reason: Dry Eyes Ondansetron HCl (Zofran Odt) 4 mg PO Q6H PRN PRN Reason: Nausea/Vomiting Ondansetron HCl (Zofran) 4 mg IVP Q6H PRN PRN Reason: Nausea/Vomiting Last Admin: 07/19/18 15:36 Dose: 4 mg Paroxetine HCl (Paxil) 10 mg PO HS [facility] Last Admin: 07/20/18 21:45 Dose: 10 mg Rifaximin (Xifaxan) 550 mg PO BID [facility] Last Admin: 07/20/18 21:46 Dose: 550 mg Sodium Chloride (Flush - Normal Saline) 10 ml IVF Q12HR [facility] Last Admin: 07/20/18 21:48 Dose: 10 ml Sodium Chloride (Flush - Normal Saline) 10 ml IVF PRN PRN PRN Reason: Saline Flush Tramadol HCl (Ultram) 50 mg PO Q6H PRN PRN Reason: Moderate Pain (4-6) Last Admin: 07/20/18 16:15 Dose: 50 mg
[2018-07-21] MEDS: Levothyroxine Sodium 75 MCG TAB PO SCH (05:19)
[2018-07-21 07:31] LABS: #Eosinphils 0.5 thou/uL (0.0-0.7); #Lymphocytes 1.7 thou/uL (1.20-3.40); #Neutrophils 3.8 thou/uL (1.40-6.50); %Basophils 0.4 % (0.0-1.0); %Eosinophils 7.3 % (0.0-10.0); %Lymphocytes 24.2 % (21.0-51.0); %Monocytes 14.5 % (0.0-10.0); %Neutrophils 53.6 % (42.0-75.0); Mean Corpuscular Hemoglobin 30.4 pg (27.0-31.0); Mean Corpuscular Volume 92.1 fL (78.0-98.0); Mean Platelet Volume 7.1 fL (7.4-10.4); Platelet Count 162 thou/uL (130-400); RBC Distribution Width 12.6 % (11.5-14.5); Red Blood Cell (RBC) Count 3.61 mill/uL (4.20-5.40)
[2018-07-21 07:46] LABS: ALT (SGPT) 11 U/L (8-55); AST (SGOT) 18 U/L (5-34); Albumin 2.5 g/dL (3.4-4.8); Alkaline Phosphatase 76 U/L (40-150); Anion Gap 13 mmol/L (10-20); BUN (Urea Nitrogen) 34 mg/dL (9.8-20.1); Bilirubin, Total 0.3 mg/dL (0.2-1.2); Calc. Creatinine Clearance 29 mL/min (70-130); Carbon Dioxide 18 mmol/L (23-31); Chloride 108 mmol/L (98-107); Estimated GFR-MDRD 31; Globulin 3.1 g/dL (2.4-3.5); Glucose 104 mg/dL (83-110); Potassium 4.5 mmol/L (3.5-5.1); Protein, Total 5.6 g/dL (6.0-8.3); Sodium 134 mmol/L (136-145)
[2018-07-21] MEDS: Famotidine 20 MG TAB PO SCH (08:17)
[2018-07-21] MEDS: Rifaximin 550 MG TAB PO SCH (08:17)
[2018-07-21] MEDS: Insulin Glargine 10 UNITS in Pre-Filled Syringe SC SCH (08:17)
[2018-07-21] MEDS: Carvedilol 25 MG TAB PO SCH (08:20)
[2018-07-21 15:08] VITALS: BP 130/74; TEMP 98
--- NOTE | 2018-07-21 19:32 | DIS ---
DATE OF ADMISSION: 07/17/2018 DATE OF DISCHARGE: 07/21/2018 DISCHARGE DISPOSITION: Home with guardian, home health care. FOLLOWUP: 1. Follow up with primary care physician at [facility] in 1 week. 2. Follow up with Gastroenterology Service, Dr. Escobedo in 1 week. 3. Outpatient liver biopsy. ALLERGIES: THE PATIENT IS ALLERGIC TO CEFTRIAXONE, HYDROCODONE, AND NAPROXEN. DISCHARGE MEDICATIONS: 1. Carvedilol 6.25 mg b.i.d. 2. Levofloxacin 500 mg daily for next 3 more days. 3. Paxil 10 mg at bedtime. 4. Micogel cream daily. 5. Levothyroxine 75 mcg daily. 6. Levemir 30 units daily. 7. Lactulose 30 g b.i.d. 8. Pepcid 40 mg daily. 9. Rifaximin 550 mg p.o. b.i.d. Inpatient consult and gastroenterology, Dr. Escobedo. Neurology, Dr. Atwood. BRIEF HOSPITAL COURSE: The patient is a 78-year-old female with chronic kidney disease, elevated ammonia of unclear etiology, on lactulose, presented to the emergency room with altered mentation. Please note that the patient had discontinued taking lactulose 2 days prior to admission. Please refer to the history and physical for further details. The patient was admitted to the hospital with a diagnosis of altered mentation secondary to elevated ammonia level along with UTI. On her way to her room, she developed seizure in the elevator. She became unresponsive, requiring endotracheal intubation. She was monitored in the CCU. Next day she was extubated. She had significant hyperkalemia with potassium of 5.8 on admission. For this reason, irbesartan and Aldactone has been discontinued. Low-dose carvedilol was added. She showed good improvement with lactulose along with rifaximin. She was advised to be compliant with lactulose. She was also placed on rifaximin during this hospital stay. She will follow up with Gastroenterology Service as outpatient. FINAL DIAGNOSES: 1. Toxic metabolic encephalopathy secondary to hyperammonemia. 2. Group B Streptococcus urinary tract infection. 3. Hyperkalemia secondary to metabolic acidosis. Please note, the patient was on Aldactone and irbesartan on admission. 4. Acute kidney injury on chronic kidney disease stage 3. 5. Chronically elevated ammonia of unclear etiology. The patient is scheduled for liver biopsy. 6. Acute hypoxic respiratory failure secondary to seizure. The patient was transiently placed on Keppra, which has been discontinued per Neurology recommendation. 7. Diabetes mellitus type 2. 8. Hypertension. 9. Coronary artery disease, status post coronary artery bypass grafting. 10. Psoriasis. 11. Moderate protein calorie malnutrition. 12. Hypomagnesemia, replaced. Total time coordinating the discharge of this patient was 38 minutes. Job ID: [id number]
== END 2018-07-21 15:05 | disposition home health service (06) | DRG 91 ==
LOC: ERS 19:34 → 2SE 23:35 → CCU 23:50 → T4-B 07-19 12:13
PROVIDERS: ADMIT Internal Medicine; ATTEND Internal Medicine
DX: G92 Toxic encephalopathy (principal); J96.01 Acute respiratory failure with hypoxia; N39.0 Urinary tract infection, site not specified; E72.20 Disorder of urea cycle metabolism, unspecified; N17.9 Acute kidney failure, unspecified; E44.0 Moderate protein-calorie malnutrition; E87.5 Hyperkalemia; I12.9 Hypertensive chronic kidney disease with stage 1 through stage 4 chronic kidney disease, or unspecified chronic kidney disease; N18.3 Chronic kidney disease, stage 3 (moderate); E11.22 Type 2 diabetes mellitus with diabetic chronic kidney disease; I25.10 Atherosclerotic heart disease of native coronary artery without angina pectoris; Z95.1 Presence of aortocoronary bypass graft; B96.20 Unspecified Escherichia coli [E. coli] as the cause of diseases classified elsewhere; L40.9 Psoriasis, unspecified; G40.909 Epilepsy, unspecified, not intractable, without status epilepticus; K72.90 Hepatic failure, unspecified without coma
CPT/HCPCS: 36415; 36416; 70450; 71045; 80053; 81001; 81003; 81015; 82010; 82140; 82805; 83605; 83690; 83735; 84100; 85025; 85610; 85730; 87077; 87086; 93005; 94002; 96374; 96375; J0696; J1650; J1815; J1825; J1953; J2185; J2405; J2704; J3475; J7070; S0028

== ENCOUNTER 2018-07-30 07:36 | Day surgery (SDC) | payer MEDICARE ==
[2018-07-30] MEDS ORDERED: Sodium Chloride 0.9% 10 ML ONE (08:40)
[2018-07-30 08:51] VITALS: BP 169/62; TEMP 98
[2018-07-30 08:58] VITALS: BMI 25.4
[2018-07-30] MEDS ORDERED: Midazolam HCl 2 mg/2 ml Vial ONE (09:05)
[2018-07-30] MEDS ORDERED: Fentanyl 100 MCG/2 ML VIAL ONE (09:05)
[2018-07-30] MEDS ORDERED: Lidocaine 1% PF 5 ML VIAL ONE (09:05)
[2018-07-30] MEDS ORDERED: Sodium Bicarbonate 2.5 MEQ/5 ML VIAL ONE (09:05)
--- NOTE | 2018-07-30 12:15 | ULT ---
SONOGRAPHIC GUIDED RANDOM HEPATIC BIOPSY: Date: 07/30/18 HISTORY: Abnormal liver function tests. Hepatic disease. FINDINGS: After explaining the procedure and answering all questions, sonographic survey shows a good approach to the left liver lobe. Sterile technique, buffered local anesthesia, sonographic guidance, and an an terior subxiphoid approach were used to carefully advance a 17 gauge trocar needle into the left live r lobe. Position was confirmed with sonography. A total of two 18 gauge core biopsy specimens were obtained and submitted to pathology for evaluation . Needle was removed. No evidence of complication. The patient tolerated the procedure well and was r eturned to the holding area in good condition for further monitoring prior to discharge. IMPRESSION: Technically successful sonographic guided random hepatic biopsy. Pathology is pending. POS: DARIEN
== END 2018-07-30 11:10 | disposition home or self-care (01) ==
LOC: ULT 07:36
PROVIDERS: ATTEND Internal Medicine
PROC: 0FB23ZX Excision of Left Lobe Liver, Percutaneous Approach, Diagnostic (ICD-10-PCS; principal; 2018-07-30)
DX: K74.0 Hepatic fibrosis (principal); K75.9 Inflammatory liver disease, unspecified; I12.9 Hypertensive chronic kidney disease with stage 1 through stage 4 chronic kidney disease, or unspecified chronic kidney disease; E11.22 Type 2 diabetes mellitus with diabetic chronic kidney disease; N18.3 Chronic kidney disease, stage 3 (moderate); I25.10 Atherosclerotic heart disease of native coronary artery without angina pectoris; L40.9 Psoriasis, unspecified; Z79.4 Long term (current) use of insulin; Z79.82 Long term (current) use of aspirin; Z79.899 Other long term (current) drug therapy; Z88.1 Allergy status to other antibiotic agents; Z88.5 Allergy status to narcotic agent; Z88.6 Allergy status to analgesic agent; Z95.1 Presence of aortocoronary bypass graft; Z98.890 Other specified postprocedural states
CPT/HCPCS: 47000; 76942; 88307; 88313; 88342; J2001; J2250; J3010

== ENCOUNTER 2018-08-06 17:44 | Emergency (ER) | payer MEDICARE ==
[2018-08-06] MEDS ORDERED: cloNIDine 0.1 MG TAB ONE (19:17)
[2018-08-06 19:19] LABS: #Eosinphils 0.7 thou/uL (0.0-0.7); #Lymphocytes 1.6 thou/uL (1.20-3.40); #Monocytes 0.7 thou/uL (0.11-0.59); #Neutrophils 2.8 thou/uL (1.40-6.50); %Basophils 0.4 % (0.0-1.0); %Eosinophils 12.8 % (0.0-10.0); %Lymphocytes 27.3 % (21.0-51.0); %Monocytes 11.3 % (0.0-10.0); %Neutrophils 48.1 % (42.0-75.0); Hemoglobin 9.4 g/dL (12.0-16.0); Mean Corpuscular HGB CONC 32.1 g/dL (32.0-36.0); Mean Corpuscular Hemoglobin 31.3 pg (27.0-31.0); Mean Corpuscular Volume 97.5 fL (78.0-98.0); Mean Platelet Volume 6.5 fL (7.4-10.4); Platelet Count 191 thou/uL (130-400); RBC Distribution Width 13.3 % (11.5-14.5); Red Blood Cell (RBC) Count 3.01 mill/uL (4.20-5.40); White Blood Cell (WBC) Count 5.8 thou/uL (4.8-10.8)
[2018-08-06 19:40] LABS: ALT (SGPT) 21 U/L (8-55); AST (SGOT) 32 U/L (5-34); Alkaline Phosphatase 105 U/L (40-150); Anion Gap 15 mmol/L (10-20); BUN (Urea Nitrogen) 23 mg/dL (9.8-20.1); Bilirubin, Total 0.3 mg/dL (0.2-1.2); CK (CPK) 59 U/L (29-168); Calc. Creatinine Clearance 0 mL/min (70-130); Carbon Dioxide 16 mmol/L (23-31); Chloride 111 mmol/L (98-107); Estimated GFR-MDRD 38; Globulin 3.3 g/dL (2.4-3.5); Glucose 211 mg/dL (83-110); Potassium 5.5 mmol/L (3.5-5.1); Protein, Total 6.3 g/dL (6.0-8.3); Sodium 136 mmol/L (136-145)
== END 2018-08-06 20:45 | disposition home or self-care (01) ==
LOC: ERS 17:44
DX: E87.5 Hyperkalemia (principal); I25.10 Atherosclerotic heart disease of native coronary artery without angina pectoris; E11.9 Type 2 diabetes mellitus without complications; I11.0 Hypertensive heart disease with heart failure; I50.9 Heart failure, unspecified; Z79.899 Other long term (current) drug therapy
CPT/HCPCS: 36415; 80053; 82550; 84484; 85025; 93005

== ENCOUNTER 2018-09-20 19:28 | Inpatient (IN) | payer MEDICARE ==
[2018-09-20] MEDS ORDERED: hydrALAZINE 20 MG/ML VIAL ONE (20:48)
--- NOTE | 2018-09-20 20:48 | RAD ---
FExam: Portable chest Provided clinical history: Weakness FINDINGS: Comparison 07/18/2018. Cardiac and mediastinal silhouette is unchanged in appearance. Median sternotom y changes and atherosclerosis redemonstrated. No focal consolidation, pleural fluid or pneumothorax e vident. IMPRESSION: No evidence for an acute cardiopulmonary process.
[2018-09-20 21:17] LABS: #Basophils 0.1 thou/uL (0.0-0.2); #Eosinphils 0.8 thou/uL (0.0-0.7); #Lymphocytes 1.7 thou/uL (1.20-3.40); #Monocytes 0.5 thou/uL (0.11-0.59); #Neutrophils 2.4 thou/uL (1.40-6.50); %Basophils 1.3 % (0.0-1.0); %Eosinophils 14.6 % (0.0-10.0); %Lymphocytes 30.9 % (21.0-51.0); %Monocytes 9.4 % (0.0-10.0); %Neutrophils 43.9 % (42.0-75.0); Hemoglobin 9.4 g/dL (12.0-16.0); Mean Corpuscular HGB CONC 32.4 g/dL (32.0-36.0); Mean Corpuscular Hemoglobin 28.7 pg (27.0-31.0); Mean Corpuscular Volume 88.5 fL (78.0-98.0); Mean Platelet Volume 7.3 fL (7.4-10.4); Platelet Count 193 thou/uL (130-400); RBC Distribution Width 13.7 % (11.5-14.5); Red Blood Cell (RBC) Count 3.29 mill/uL (4.20-5.40); White Blood Cell (WBC) Count 5.4 thou/uL (4.8-10.8)
[2018-09-20 21:23] LABS: Bilirubin Negative (Negative); Blood, Urine Small (Negative); Clarity CLOUDY (Clear); Glucose, Urine (Dipstick) 250 mg/dL (Negative); Leukocyte Small (Negative); Nitrite Negative (Negative); Protein, Urine (Dipstick) 300 mg/dL (Neg-Trace); Specific Gravity, Urine 1.013 (1.002-1.036); pH, Urine 6.5 (5.0-9.0)
[2018-09-20 21:25] LABS: Bacteria/HPF None Seen HPF (None Seen); Hyaline Casts/LPF 4-6 HYALINE CAST LPF (0-3 Hyaline); Pathc Cast-AUWi Flag 0.95 (0-2.49); Squamous Epithelial None Seen HPF (0-3)
[2018-09-20 21:43] LABS: ALT (SGPT) 10 U/L (8-55); AST (SGOT) 23 U/L (5-34); Albumin 3.3 g/dL (3.4-4.8); Alkaline Phosphatase 106 U/L (40-150); Anion Gap 14 mmol/L (10-20); BUN (Urea Nitrogen) 17 mg/dL (9.8-20.1); Bilirubin, Total 0.7 mg/dL (0.2-1.2); CK (CPK) 78 U/L (29-168); Calc. Creatinine Clearance 0 mL/min (70-130); Calcium 8.9 mg/dL (7.8-10.44); Carbon Dioxide 21 mmol/L (23-31); Chloride 108 mmol/L (98-107); Estimated GFR-MDRD 51; Globulin 4.2 g/dL (2.4-3.5); Glucose 200 mg/dL (83-110); Lipase 15 U/L (8-78); Potassium 3.7 mmol/L (3.5-5.1); Protein, Total 7.5 g/dL (6.0-8.3); Sodium 139 mmol/L (136-145)
[2018-09-20 22:13] LABS: CKMB 1.9 ng/mL (0-6.6)
[2018-09-20 23:58] LABS: Troponin I 0.034 ng/mL (< 0.028)
[2018-09-21] MEDS ORDERED: Ondansetron ODT 4 MG TAB SL PRN (00:15)
[2018-09-21] MEDS ORDERED: Sodium Chloride 0.9% 1,000 ML IV SCH ×2 (00:15→02:03)
[2018-09-21] MEDS ORDERED: Ondansetron PF 4 MG/2 ML Vial IVP PRN (00:15)
[2018-09-21] MEDS ORDERED: Acetaminophen 325 MG TAB PO PRN (00:15)
[2018-09-21 00:18] VITALS: BMI 25.4
[2018-09-21] MEDS ORDERED: Dextrose 5% in Water 1,000 ML IV PRN (02:05)
[2018-09-21] MEDS ORDERED: Dextrose 50% Abboject 50 ML SYRINGE SLOW IVP PRN (02:05)
[2018-09-21] MEDS ORDERED: Insulin Regular 300 UNITS/3 ML VIAL SC PRN (02:05)
[2018-09-21] MEDS ORDERED: hydrALAZINE 20 MG/ML VIAL SLOW IVP PRN (02:17)
[2018-09-21 02:35] LABS: #Basophils 0.1 thou/uL (0.0-0.2); #Eosinphils 0.7 thou/uL (0.0-0.7); #Lymphocytes 1.7 thou/uL (1.20-3.40); #Monocytes 0.6 thou/uL (0.11-0.59); #Neutrophils 2.4 thou/uL (1.40-6.50); %Basophils 1.4 % (0.0-1.0); %Eosinophils 13.4 % (0.0-10.0); %Neutrophils 43.2 % (42.0-75.0); Hemoglobin 8.9 g/dL (12.0-16.0); Mean Corpuscular HGB CONC 32.6 g/dL (32.0-36.0); Mean Corpuscular Hemoglobin 28.8 pg (27.0-31.0); Mean Corpuscular Volume 88.4 fL (78.0-98.0); Platelet Count 176 thou/uL (130-400); RBC Distribution Width 13.6 % (11.5-14.5); Red Blood Cell (RBC) Count 3.07 mill/uL (4.20-5.40); White Blood Cell (WBC) Count 5.5 thou/uL (4.8-10.8)
[2018-09-21] MEDS ORDERED: hydrOXYzine 10 MG TAB PO PRN (02:35)
--- NOTE | 2018-09-21 03:23 | HP ---
CHIEF COMPLAINT: Weakness and confusion. HISTORY OF PRESENT ILLNESS: This is a 78-year-old woman, who was brought in following a 2-day history of generalized weakness, decreased appetite, and confusion. Her states she has been progressively getting weaker for the last couple of days and is normally able to ambulate independently with the help of a walker. Today, she was unable to feed herself due to weakness in her arms. She was also noted to be confused with episodes of hallucination. The patient's states this is a recurring problem with her that usually happens in association with an infection or hyper-ammonia, for which she has been seen in the past by Dr. Escobedo. She was placed on Atarax and rifaximin. The patient underwent laboratory studies in the ER that showed an ammonia level of 135. She was given lactulose and has had 2 to 3 loose stools since then. She was noted to have white count with no temperature. Urinalysis was done and showed small leukocyte esterase, small amount of blood, greater than 50 white blood cells with no bacteria seen, and negative for nitrite. Of note, she underwent a liver biopsy in July 2018, which showed mild nonspecific portal inflammation with no definite abnormal fibrosis. REVIEW OF SYSTEMS: The patient denies any chest pain or palpitations, but is feeling short of breath. Denies any abdominal pain or cramping. No suprapubic pain or tenderness. No back pain. Denies any headaches or dizziness. Reports generalized weakness. Denies having any headaches or dizziness. She denies any urinary symptoms. No changes with her stools until today when she developed diarrhea after receiving lactulose in the ED. No skin changes. No lower leg swelling or pain. She has had a decreased appetite with decreased oral intake. Otherwise, all other review of systems is negative. No speech changes or visual disturbances, but has had episodes of hallucination today and yesterday, according to her . ALLERGIES: 1. NAPROXEN. 2. CEFTRIAXONE. 3. HYDROCODONE. CURRENT MEDICATIONS: 1. Metformin. 2. Hydroxyzine. 3. Calcium carbonate/vitamin D3. 4. Aspirin. 5. Levothyroxine. 6. Levemir. 7. Famotidine. 8. Coreg. 9. Rifaximin. 10. Paroxetine. PAST MEDICAL HISTORY: 1. Frequent urinary tract infections. 2. Hyper-ammonia of unknown etiology. 3. Coronary artery disease. 4. CHF. 5. Type 2 diabetes mellitus. 6. Hypertension. 7. Psoriasis. 8. Depression. PAST SURGICAL HISTORY: 1. CABG x4 in May 2017. 2. Hysterectomy. 3. Right ankle surgery. 4. Cardiac ablation. PHYSICAL EXAMINATION: GENERAL: The patient appears fatigued, frail, but in no acute distress. VITAL SIGNS: Temperature 97.5, pulse 69, respirations 18, O2 saturation 100% on room air, and blood pressure 173/71. HEENT: Normocephalic and atraumatic. Pupils are equal, round, and reactive to light. Sclerae are without icterus. Oropharynx is clear. No thrush, ulcers, or exudate. NECK: Supple. LUNGS: Clear to auscultation with decreased breath sounds at bilateral bases, but no wheezes, rales, or rhonchi. CARDIAC: Regular rate and rhythm. ABDOMEN: Soft. Slightly distended. Nontender. No guarding or rigidity. No renal angle tenderness. EXTREMITIES: No edema. No calf pain/tenderness. Power 5/5 in all limbs. NEUROLOGIC: Alert to person. SKIN: Without rash or jaundice. LABORATORY DATA: White blood count 5.4, hemoglobin 9.4, hematocrit 29.1, platelets 193. Sodium 139, potassium 3.7, chloride 108, carbon dioxide 21, anion gap 14, BUN 17, creatinine 1.05, GFR 51, glucose 200, calcium 8.9, total bilirubin 0.7, AST 23, ALT 10, alkaline phosphatase 106. Ammonia 135. CK is 78, CK-MB 1.9, troponin 0.034. BNP 1445.6. Total protein 7.5, albumin 3.3. TSH 0.9735. Lipase 15. Urinalysis as mentioned above in HPI. IMAGING DATA: Chest x-ray, 09/20/2018, no evidence for acute cardiopulmonary process. IMPRESSION AND PLAN: Ms. Sung is a pleasant 78-year-old woman, being admitted for management of the followin. Urinary tract infection. The patient with history of frequent urinary tract infections. Last urine culture on 07/18/2018 was positive for Streptococcus agalactiae group B and Rosi albicans. The patient has been started on Levaquin in the ER. Stat urine culture pending. White count normal. We will continue to monitor. Unclear if the patient is experiencing any urinary retention. We have requested a postvoid bladder scan. If retaining, she will require a Trevizo catheter and further imaging of her kidneys. 2. Hyper-ammonia. Ammonia level elevated at 135. She was given lactulose in the ER. We will repeat ammonia levels with a.m. labs. Per ED physician, a consult has been placed to GI as the patient has been seen by Dr. Escobedo in the past for management of hyper-ammonia. A liver biopsy done in the past was unremarkable. I do not see a consult in place, and we will leave the day team to decide if she needs to be seen by Dr. Escobedo as an inpatient or if okay to follow up as an outpatient. The patient will continue lactulose p.o. b.i.d. 3. Hypertension. Resume home medications. Hydralazine 10 mg IV q.4 hours p.r.n. ordered. Continue to monitor blood pressure. 4. General deconditioning. The patient has had weakness with decreased appetite and is not mobilizing as she normally does at home with the help of the walker. PT/ OT eval requested. Her did state she particularly had difficulty holding the fork in her right hand earlier today. On exam, she has 5/5 power in all limbs. Given her confusion and unclear history regarding whether or not she had generalized weakness versus unilateral weakness, we will obtain a CT of head to rule out any intracranial abnormalities. 5. Diabetes. Resume home medications. Initiate insulin sliding scale and monitor glucose. 6. Coronary artery disease. Resume home medications. 7. Hypothyroidism. Resume home medications. TSH checked. 8. Gastrointestinal prophylaxis. 9. Deep venous thrombosis prophylaxis. 10. Code status. The patient is full code status and her surrogate decision maker is her , Mr. Orlando Sung. The patient's case was discussed with Dr. Cruz, who agrees with plan of care as described above. Job ID: [id number] [facility]
[2018-09-21 03:26] LABS: Anion Gap 13 mmol/L (10-20); BUN (Urea Nitrogen) 17 mg/dL (9.8-20.1); Calc. Creatinine Clearance 48 mL/min (70-130); Calcium 8.7 mg/dL (7.8-10.44); Carbon Dioxide 20 mmol/L (23-31); Chloride 113 mmol/L (98-107); Estimated GFR-MDRD 52; Glucose 127 mg/dL (83-110); Potassium 3.4 mmol/L (3.5-5.1); Sodium 143 mmol/L (136-145)
[2018-09-21] MEDS: Levothyroxine Sodium 75 MCG TAB PO SCH (06:51)
[2018-09-21] MEDS ORDERED: metFORMIN 500 MG TAB PO SCH (08:00)
--- NOTE | 2018-09-21 08:12 | CT ---
FPRELIMINARY REPORT: EXAM: CT Head Without Contrast EXAM DATE/TIME: 09/21/2018 3:07 AM CLINICAL HISTORY: 78 years old, female; Signs and symptoms; Altered mental status/memory loss; Patient HX: Confusion and weakness. Elevated BP. AMS TECHNIQUE: Imaging protocol: Axial computed tomography images of the head/brain without contrast. COMPARISON: No relevant prior studies available. FINDINGS: Brain: There is a focal basal ganglia hypodensity consistent with a remote lacunar infarction. There are scattered foci of hypoattenuation within the periventricular and subcortical white matter compatible with mild chronic microvascular ischemic change. There is no evidence of intracranial hemorrhage. Ventricles: Normal. No ventriculomegaly. Bones/joints: Unremarkable. No acute fracture. Sinuses: Visualized sinuses are unremarkable. No acute sinusitis. Mastoid air cells: Visualized mastoid air cells are unremarkable. No mastoid effusion. Soft tissues: Unremarkable. IMPRESSION: No acute intracranial hemorrhage. Thank you for allowing us to participate in the care of your patient. Dictated and Authenticated by: Papo De Anda MD 09/21/2018 4:14 AM Central Time ([place] & [place]) Final interpretation Head CT without contrast: 09/21/2018 COMPARISON: 07/18/2018 HISTORY: Altered mental status, memory loss, confusion and weakness I agree with the preliminary view Rab report. The visualized paranasal sinuses and mastoid air cells are well aerated. No displaced calvarial fracture. Atherosclerotic calcification of cavernous carotid arteries noted. Periventricular hypodensity suggesting small vessel disease noted, stable. No intrac ranial hemorrhage, midline shift, mass effect, or ventricular enlargement. IMPRESSION: No acute findings. Code QA Transcribed Date/Time: 09/21/2018 8:11 AM
[2018-09-21] MEDS: Insulin Glargine 10 UNITS in Pre-Filled Syringe 1 EACH SC SCH ×2 (08:15→20:40)
[2018-09-21] MEDS: Aspirin 81 mg Enteric Coated Tablet PO SCH (08:16)
[2018-09-21] MEDS: Enoxaparin Sodium 30 MG/0.3 ML SYRINGE SC SCH (08:16)
[2018-09-21] MEDS: hydrALAZINE 20 MG/ML VIAL SLOW IVP PRN ×3 (08:52→20:30)
[2018-09-21] MEDS ORDERED: Carvedilol 6.25 MG TAB PO SCH (09:00)
[2018-09-21] MEDS ORDERED: Famotidine/PF 20 mg/2ml Vial SLOW IVP SCH (09:00)
[2018-09-21] MEDS ORDERED: Non-Formulary Item 1 EACH (Levemir Flexpen [Levemir Flexpen] 10 UNIT) SC SCH (09:00)
[2018-09-21] MEDS ORDERED: Labetalol HCl 100 MG/20 ML VIAL SLOW IVP PRN (13:53)
[2018-09-21] MEDS: 1/2 NS w/KCL 20 mEq 1,000 ML IV SCH (15:46)
[2018-09-21] MEDS: Carvedilol 6.25 MG TAB PO SCH (17:40)
[2018-09-21] MEDS: metFORMIN 500 MG TAB PO SCH (17:41)
[2018-09-21] MEDS: Insulin Regular 300 UNITS/3 ML VIAL SC PRN (17:42)
[2018-09-21] MEDS: PARoxetine 20 MG TAB PO SCH (20:20)
--- NOTE | 2018-09-22 02:17 | CON ---
DATE OF CONSULTATION: 09/21/2018 CHIEF COMPLAINT: Confusion. HISTORY OF PRESENT ILLNESS: Ms. Sung is a 78-year-old woman who presented to the emergency room with a 2-to 3-day history of confusion. She just started becoming slower and becoming more unsteady with her gait and then confused and so her brought her back in for further evaluation. She has been admitted with hepatic encephalopathy and been followed by Dr. Escobedo. A liver biopsy was done on 07/30/2018; however, she has not followed up with Dr. Escobedo since the biopsy was done. He has been treating her with Xifaxan. She had been on lactulose previously, but quit taking this. She has had no nausea, vomiting, diarrhea, constipation, or abdominal pain. No blood in the stool. She was noted to have elevated ammonia level on presentation, yesterday 135. No alcohol use. PAST MEDICAL HISTORY: Hepatic encephalopathy, diabetes type 2, hypertension, chronic kidney disease, psoriasis, coronary artery disease. PAST SURGICAL HISTORY: Coronary artery bypass graft, hysterectomy, ankle surgery, cardiac ablation. She had a liver biopsy in July 2018. FAMILY HISTORY: Negative for GI malignancy. SOCIAL HISTORY: No alcohol, tobacco, or drugs. ALLERGIES: HYDROCODONE, NAPROXEN. MEDICATIONS PRIOR TO ADMISSION: 1. Aspirin. 2. Pepcid. 3. Irbesartan. 4. Levemir. 5. Levothyroxine. 6. Aldactone. 7. She has been taking Xifaxan recently, but not the lactulose. REVIEW OF SYSTEMS: Negative x10 systems reviewed except as stated in the history of present illness. However, the patient is still slow to respond and this is somewhat limited. PHYSICAL EXAMINATION: VITAL SIGNS: Temperature 97.9, pulse 68, blood pressure 144/63. GENERAL: She is in no acute distress. She is oriented to her name and location, but not the year. She has no asterixis on neurological exam. HEENT: Her eyes have no scleral icterus. Oropharynx is clear without lesions. No cervical or supraclavicular lymphadenopathy. LUNGS: Clear to auscultation bilaterally. HEART: Regular rate and rhythm without murmur. ABDOMEN: Soft, nontender, and nondistended. Bowel sounds are present. EXTREMITIES: No lower extremity edema. LABORATORY DATA: Creatinine 1.03. Ammonia as stated above was 128 today and 135 yesterday. Bilirubin 0.7, AST 23, ALT 10, alkaline phosphatase 106, albumin 3.3, BNP 1445. White blood cell count 5.5, hemoglobin 8.9, platelets 176, eosinophilic 13%. IMAGING: She had an abdomen and pelvis CT back in September 2017, which did not show obvious nodularity to the liver. IMPRESSION: Apparent hepatic encephalopathy with elevated ammonia and confusion. She just had a liver biopsy back in July 2018 that did not show definite cirrhosis or significant fibrosis. This could have been sampling error. The referral pathologist did mention that there was some subtle sinusoidal dilation on the liver biopsy that could be indicative of a portal vein thrombosis as an explanation for the hepatic encephalopathy. This will be evaluated with further imaging. Initially, we will plan ultrasound with Dopplers of the portal system and if that is negative, consider CT with contrast again. RECOMMENDATIONS: 1. Continue Xifaxan. 2. Restart lactulose. I will restart this at 15 mL daily as she had some increase in loose stools at 30 mL daily. 3. Ultrasound of the liver with Dopplers of the portal system to evaluate for portal vein thrombosis as the source for her hepatic encephalopathy. If the ultrasound is negative, then consideration could be given for repeat CT. 4. Check alpha-fetoprotein. 5. Consider upper endoscopy for varices screening. 6. Dr. Escobedo should be back tomorrow. Job ID: [id number]
[2018-09-22 04:52] LABS: #Eosinphils 0.6 thou/uL (0.0-0.7); #Lymphocytes 1.8 thou/uL (1.20-3.40); #Monocytes 0.6 thou/uL (0.11-0.59); #Neutrophils 2.6 thou/uL (1.40-6.50); %Basophils 0.6 % (0.0-1.0); %Eosinophils 10.7 % (0.0-10.0); %Lymphocytes 31.6 % (21.0-51.0); %Monocytes 11.2 % (0.0-10.0); %Neutrophils 45.8 % (42.0-75.0); Hemoglobin 8.5 g/dL (12.0-16.0); Mean Corpuscular HGB CONC 32.5 g/dL (32.0-36.0); Mean Corpuscular Hemoglobin 29.1 pg (27.0-31.0); Mean Corpuscular Volume 89.4 fL (78.0-98.0); Platelet Count 157 thou/uL (130-400); RBC Distribution Width 13.9 % (11.5-14.5); Red Blood Cell (RBC) Count 2.93 mill/uL (4.20-5.40); White Blood Cell (WBC) Count 5.7 thou/uL (4.8-10.8)
[2018-09-22 05:17] LABS: ALT (SGPT) 9 U/L (8-55); AST (SGOT) 14 U/L (5-34); Albumin 2.7 g/dL (3.4-4.8); Alkaline Phosphatase 77 U/L (40-150); Anion Gap 11 mmol/L (10-20); BUN (Urea Nitrogen) 19 mg/dL (9.8-20.1); Bilirubin, Total 0.5 mg/dL (0.2-1.2); Calc. Creatinine Clearance 36 mL/min (70-130); Calcium 8.2 mg/dL (7.8-10.44); Carbon Dioxide 20 mmol/L (23-31); Chloride 112 mmol/L (98-107); Estimated GFR-MDRD 38; Globulin 3.4 g/dL (2.4-3.5); Glucose 81 mg/dL (83-110); Magnesium 1.5 mg/dL (1.6-2.6); Phosphorus 2.7 mg/dL (2.3-4.7); Potassium 3.7 mmol/L (3.5-5.1); Protein, Total 6.1 g/dL (6.0-8.3); Sodium 139 mmol/L (136-145)
[2018-09-22] MEDS: hydrALAZINE 20 MG/ML VIAL SLOW IVP PRN ×3 (05:48→23:34)
[2018-09-22] MEDS: Levothyroxine Sodium 75 MCG TAB PO SCH (05:56)
[2018-09-22] MEDS ORDERED: Magnesium 2 GM/50 ML 2 GM in Premix Bag 1 BAG IVPB SCH ×2 (07:15→08:30)
--- NOTE | 2018-09-22 07:19 | ULT ---
HEPATIC DOPPLER ULTRASOUND WITH GREEN SCALE AND DOPPLER COLOR FLOW IMAGING: Date: 09/22/18 INDICATION: History of liver shunt. Evaluation for portal vein thrombus. FINDINGS: There is nodular morphology of the liver indicative of cirrhosis. Spleen is of normal size. Common du ct measures 6.0 mm, which is within normal limits. Gallbladder is surgically absent. Evaluation by Doppler assessment of the hepatic and portal venous systems reveals patency and appropr iate direction of flow. The hepatic and splenic arteries are patent. Imaged abdominal aorta is nonane urysmal. IMPRESSION: 1. Cirrhotic morphology of the liver. 2. Patent hepatic and portal venous systems. POS: SAVI
[2018-09-22] MEDS: Aspirin 81 mg Enteric Coated Tablet PO SCH (09:04)
[2018-09-22] MEDS: Famotidine 20 MG TAB PO SCH (09:04)
[2018-09-22] MEDS: Rifaximin 550 MG TAB PO SCH ×2 (09:04→20:59)
[2018-09-22] MEDS: Carvedilol 6.25 MG TAB PO SCH ×2 (09:04→16:38)
[2018-09-22] MEDS: metFORMIN 500 MG TAB PO SCH ×2 (09:04→16:37)
[2018-09-22] MEDS: Enoxaparin Sodium 30 MG/0.3 ML SYRINGE SC SCH (09:05)
[2018-09-22] MEDS: Insulin Glargine 10 UNITS in Pre-Filled Syringe 1 EACH SC SCH ×2 (09:47→21:03)
[2018-09-22] MEDS: 1/2 NS w/KCL 20 mEq 1,000 ML IV SCH (11:03)
[2018-09-22] MEDS: Insulin Regular 300 UNITS/3 ML VIAL SC PRN ×2 (11:47→17:52)
--- NOTE | 2018-09-22 19:09 | PRG ---
DATE OF SERVICE: 09/22/2018 REASON FOR CONSULTATION: Hyperammonemia, possible cirrhosis. SUBJECTIVE: The patient states that she is doing better today with clearing of her sensorium with the administration of both lactulose and rifaximin. She states that she has had approximately 3 semi-solid bowel movements today thus far with no difficulty with defecation. She is also being currently treated for urinary tract infection, which could have potentially contributed to her current clinical situation. Currently, she denies any nausea, vomiting, fevers, chills, abdominal pain, or constipation. OBJECTIVE: VITAL SIGNS: Temperature 98.6, pulse 70, blood pressure 164/66, respiratory rate 14, and saturating 96% on room air. GENERAL: The patient is lying in bed, in no acute distress. Alert and oriented x3. CARDIOVASCULAR: Regular rate and rhythm. RESPIRATORY: Clear to auscultation bilaterally. ABDOMEN: Normoactive bowel sounds. Soft, nontender, and nondistended. EXTREMITIES: No cyanosis, clubbing, or edema. LABORATORY DATA: CBC with a white blood cell count of 5.7, hemoglobin 8.5, hematocrit 26.2, and platelets 157. Chemistry with a sodium of 139, potassium 3.7, chloride 112, CO2 of 20, BUN 19, creatinine 1.36, glucose 81, AST 14, ALT 9, alkaline phosphatase 77, total bilirubin 0.5, and albumin 2.7. IMAGING DATA: Right upper quadrant ultrasound obtained on September 22, 2018, showed nodular morphology of the liver indicative of cirrhosis, but normal size of the spleen. Common bile duct measured approximately 6 mm in size with gallbladder surgically absent. Doppler assessment of the hepatic and portal venous systems revealed patency with no evidence of thrombosis. ASSESSMENT AND PLAN: The patient is a 78-year-old female with past medical history of diabetes, hypertension, chronic kidney disease, psoriasis, coronary artery disease, status post coronary artery bypass graft and hyperammonemia with unclear etiology, presenting with encephalopathy, secondary to hyperammonemia, now with imaging concerning for cirrhosis. Hyperammonemia/metabolic encephalopathy. The patient has had a history of elevated ammonia over the course of the last year that has been periodically contributed to loss of sensorium and altered mental status on multiple occasions and has required multiple hospitalizations for treatment; however, this had been successfully treated with lactulose administration in the past with clearing of her sensorium with titration to approximately 3 to 4 bowel movements per day. As an outpatient, she was seen and was having increased semi-solid or liquid bowel movements, secondary to lactulose administration, and she was subsequently transferred to rifaximin as monotherapy as a result. She had been doing well on this therapy until more recently when she experienced again loss of sensorium approximately 72 hours prior to admission. On evaluation in the ER, she was noted to have an elevated level of ammonia, but also urinary tract infection, which could have potentially contributed to the current clinical situation (either direct effects of the urinary tract infection or generating hyperammonemia). It is concerning this patient's liver workup, she has undergone extensive liver workup in the past, which has thus far been negative for autoimmune hepatitis, primary biliary cholangitis, primary sclerosing cholangitis, chronic viral hepatitis, hemochromatosis, Alvarado disease, alpha-1 antitrypsin deficiency imaging up until this point had been negative for cirrhotic morphology of the liver, and she has always maintained a normal LFT pattern, total bilirubin and INR all indicative of normal liver function. She subsequently underwent liver biopsy in July 2018, which did not show any evidence of cirrhosis or significant fibrosis within the liver, but rather did show some sinusoidal dilatation concerning for congestive hepatopathy secondary to thrombosis of the hepatic vein. However, on this admission, she now has a right upper quadrant ultrasound, but does state cirrhotic morphology of the liver concerning for possible cirrhosis as the etiology for her hyperammonemia. RECOMMENDATIONS: 1. We would continue to monitor neurological status and sensorium daily. 2. We would continue with lactulose administration with target goal of having approximately 3 to 4 bowel movements per day. 3. We would continue rifaximin 550 mg twice daily as part of her treatment for hyperammonemia. 4. We would obtain a CT of the abdomen for further evaluation of cirrhotic morphology and/or evidence of portal hypertension. 5. We will continue to follow. Please call with any questions. Job ID: [id number]
[2018-09-22] MEDS: PARoxetine 20 MG TAB PO SCH (21:00)
--- NOTE | 2018-09-22 23:10 | PDOC.PN ---
- Subjective Encounter Start Date: 09/22/18 Encounter Start Time: 11:30 Patient seen and examined for AMS. Mentation improving. No new complaints. No overnight events - Objective Resuscitation Status - Order Detail: 09/21/18 02:07 Resuscitation Status Routine Co-Sign Provider: Resuscitation Status: FULL: Full Resuscitation Discussed with: Patient and Vital Signs & Weight: Vital Signs (12 hours) Temp Pulse Resp BP BP BP Pulse Ox 09/22/18 20:15 97.8 F 74 18 164/73 H 96 09/22/18 16:45 98.6 F 70 14 164/66 H 96 09/22/18 11:22 68 17 175/74 H 96 09/22/18 11:17 75 09/22/18 11:14 97.5 F L 75 17 188/77 H 97 Weight Weight 148 lb 4.8 oz I&O: 09/21/18 09/22/18 09/23/18 06:59 06:59 06:59 Intake Total 700 1640 960 Balance 700 1640 960 Result Diagrams: 09/22/18 04:44 09/22/18 04:44 Additional Labs: Accuchecks 09/22/18 09/22/18 09/22/18 20:12 16:45 10:57 POC Glucose 166 H 185 H 199 H 09/22/18 09/22/18 09/22/18 09:49 05:49 00:21 POC Glucose 215 H 82 136 H Phys Exam - Physical Examination Constitutional: NAD Respiratory: no wheezing, no rhonchi Cardiovascular: RRR, no rub Gastrointestinal: soft, non-tender, positive bowel sounds Musculoskeletal: no edema Neurological: moves all 4 limbs Dx/Plan - Plan DVT proph w/SCDs IMPRESSION: 1. Toxic metabolic encephalopathy secondary to elevated ammonia/urinary tract infection. 2. Hypomagnesemia. 3. CKD 3. 4. Diabetes mellitus type 2. 5. Hypertension. 6. Coronary artery disease, status post coronary artery bypass graft. 7. Psoriasis. PLAN: Cont Lactulose/Rifaximin Cont Levaquin Cont other meds as below AM labs Cont gentle hydration Replace Magnesium Check Postvoid residual Review of Systems - Review of Systems Respiratory: negative: Cough, Dry, Shortness of Breath, Hemoptysis, SOB with Excertion, Pleuritic Pain, Sputum, Wheezing Cardiovascular: negative: chest pain, palpitations, orthopnea, paroxysmal nocturnal dyspnea, edema, light headedness, other - Medications/Allergies Allergies/Adverse Reactions: Allergies Allergy/AdvReac Type Severity Reaction Status Date / Time naproxen sodium [From Aleve] Allergy Mild Verified 07/29/18 14:36 ceftriaxone [From Rocephin] Allergy Unknown Verified 07/29/18 14:36 hydrocodone Allergy Verified 07/29/18 14:36 Medications: Current Medications Aspirin (Ecotrin) 81 mg PO DAILY [facility] Last Admin: 09/22/18 09:04 Dose: 81 mg Carvedilol (Coreg) 6.25 mg PO BID-[facility] Last Admin: 09/22/18 16:38 Dose: 6.25 mg Dextrose/Water (Dextrose 50%) 25 gm SLOW IVP PRN PRN PRN Reason: Hypoglycemia Enoxaparin Sodium (Lovenox) 30 mg SC 0900 [facility] Last Admin: 09/22/18 09:05 Dose: 30 mg Famotidine (Pepcid) 40 mg PO DAILY [facility] Last Admin: 09/22/18 09:04 Dose: 40 mg Glucagon (Glucagon) 1 mg IM PRN PRN PRN Reason: Hypoglycemia Hydralazine HCl (Apresoline) 10 mg SLOW IVP Q4H PRN PRN Reason: SBP Greater Than 180 Hydroxyzine HCl (Atarax) 10 mg PO TIDPRN PRN PRN Reason: Itching Dextrose/Water (D5w) 1,000 mls @ 0 mls/hr IV .Q0M PRN PRN Reason: Hypoglycemia Insulin Glargine 10 units/ (Miscellaneous Medication) 0.1 mls @ 0 mls/hr SC BID [facility] Last Admin: 09/22/18 21:03 Dose: 0.1 mls Levofloxacin 500 mg/ Device 100 mls @ 100 mls/hr IVPB 2200 [facility] Last Admin: 09/21/18 21:47 Dose: 100 mls Potassium Chloride/Sodium Chloride (1/2 Ns W/Kcl 20 Meq) 1,000 mls @ 50 mls/hr IV .Q20H [facility] Last Admin: 09/22/18 11:03 Dose: 1,000 mls Insulin Human Regular (Humulin R) 0 units SC .BEDTIME SLIDING SC PRN PRN Reason: Bedtime Correctional Scale Insulin Human Regular (Humulin R) 0 units SC .MILD SLIDING SCALE PRN PRN Reason: Mild Correctional Scale Last Admin: 09/22/18 17:52 Dose: 2 unit Labetalol HCl (Normodyne) 10 mg SLOW IVP Q4H PRN PRN Reason: Systolic BP > 180 Lactulose (Lactulose) 20 gm PO BID [facility] Last Admin: 09/22/18 20:58 Dose: 20 gm Levothyroxine Sodium (Synthroid) 75 mcg PO 0600 [facility] Last Admin: 09/22/18 05:56 Dose: 75 mcg Metformin HCl (Glucophage) 500 mg PO BID-[facility] Last Admin: 09/22/18 16:37 Dose: 500 mg Paroxetine HCl (Paxil) 10 mg PO HS [facility] Last Admin: 09/22/18 21:00 Dose: 10 mg Rifaximin (Xifaxan) 550 mg PO BID [facility] Last Admin: 09/22/18 20:59 Dose: 550 mg Sodium Chloride (Flush - Normal Saline) 10 ml IVF Q12HR [facility] Last Admin: 09/22/18 09:05 Dose: 10 ml Sodium Chloride (Flush - Normal Saline) 10 ml IVF PRN PRN PRN Reason: Saline Flush
[2018-09-23] MEDS: Levothyroxine Sodium 75 MCG TAB PO SCH (05:29)
[2018-09-23] MEDS: 1/2 NS w/KCL 20 mEq 1,000 ML IV SCH (07:25)
[2018-09-23] MEDS: metFORMIN 500 MG TAB PO SCH (09:02)
[2018-09-23] MEDS: Carvedilol 6.25 MG TAB PO SCH ×2 (09:03→17:30)
[2018-09-23] MEDS: Aspirin 81 mg Enteric Coated Tablet PO SCH (09:03)
[2018-09-23] MEDS: Enoxaparin Sodium 30 MG/0.3 ML SYRINGE SC SCH (09:03)
[2018-09-23] MEDS: Rifaximin 550 MG TAB PO SCH ×2 (09:03→20:56)
[2018-09-23] MEDS: Famotidine 20 MG TAB PO SCH (09:03)
--- NOTE | 2018-09-23 10:21 | CT ---
CT ABDOMEN AND PELVIS WITHOUT AND WITH CONTRAST: History: Hyper ammonemia with cirrhosis of the liver. Technique: Multiple contiguous axial images were obtained in a CT of the abdomen and pelvis without a nd with IV contrast. Oral contrast was administered. Coronal reformats were performed. FINDINGS: The gallbladder has been removed. The liver has a very minimal nodular contour. No focal liver lesion s are seen. No biliary dilatation is seen. There is an extrarenal pelvis in the right kidney. The left kidney, adrenal glands, spleen, and pancr eas are unremarkable. No free air, free fluid, or stranding changes are seen in the abdomen or pelvis. The large and small bowel are unremarkable. Atherosclerotic calcifications are seen in the aorta. There are moderate retr operitoneal varices. There are also significant varices in the small bowel mesentery. Atherosclerotic calcifications are seen in the aorta. There is a calcified left retroperitoneal lymph node. No enlar ged retroperitoneal lymph nodes are identified. There are mildly prominent bilateral inguinal lymph n odes. Degenerative changes are seen. There is small left pleural effusion. Round atelectasis is seen in the right lung base. IMPRESSION: 1. 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 The liver has a s lightly nodular contour which may be secondary to cirrhosis. Correlate with prior biopsy results. No ascites or splenomegaly are seen to otherwise suggest portal hypertension. 2. Nonspecific mildly prominent bilateral inguinal lymph nodes. 3. Small left pleural effusion. POS: TPC
[2018-09-23 10:35] LABS: Anisocytosis SLIGHT = 6-15 cells (100X) (0-5/hpf); Band 7 % (5-11); Eosinophils 2 % (0-10); Hemoglobin 9.3 g/dL (12.0-16.0); Lymphocytes 37 % (21-51); MDiff Complete? YES; Mean Corpuscular HGB CONC 31.4 g/dL (32.0-36.0); Mean Corpuscular Hemoglobin 27.9 pg (27.0-31.0); Mean Platelet Volume 9.4 fL (7.4-10.4); Neutrophil 53 % (42-75); Platelet Count 142 thou/uL (130-400); RBC Distribution Width 14.6 % (11.5-14.5); Red Blood Cell (RBC) Count 3.34 mill/uL (4.20-5.40); White Blood Cell (WBC) Count 7.5 thou/uL (4.8-10.8)
[2018-09-23] MEDS: Insulin Glargine 10 UNITS in Pre-Filled Syringe 1 EACH SC SCH ×2 (10:43→20:57)
[2018-09-23] MEDS: Insulin Regular 300 UNITS/3 ML VIAL SC PRN ×2 (10:45→17:30)
[2018-09-23 12:19] LABS: ALT (SGPT) 10 U/L (8-55); AST (SGOT) 16 U/L (5-34); Albumin 2.8 g/dL (3.4-4.8); Alkaline Phosphatase 77 U/L (40-150); Anion Gap 10 mmol/L (10-20); BUN (Urea Nitrogen) 18 mg/dL (9.8-20.1); Bilirubin, Total 0.7 mg/dL (0.2-1.2); Calc. Creatinine Clearance 33 mL/min (70-130); Calcium 8.4 mg/dL (7.8-10.44); Carbon Dioxide 22 mmol/L (23-31); Chloride 108 mmol/L (98-107); Estimated GFR-MDRD 33; Globulin 3.7 g/dL (2.4-3.5); Glucose 184 mg/dL (83-110); Phosphorus 3.7 mg/dL (2.3-4.7); Protein, Total 6.5 g/dL (6.0-8.3); Sodium 136 mmol/L (136-145)
[2018-09-23] MEDS: Sodium Chloride 0.9% 1,000 ML IV SCH ×2 (14:40→23:03)
--- NOTE | 2018-09-23 17:58 | PDOC.PN ---
- Subjective Encounter Start Date: 09/23/18 Encounter Start Time: 14:00 Patient seen and examined for Encephalopathy. No fever/N/V. No new complaints. No overnight events - Objective Resuscitation Status - Order Detail: 09/21/18 02:07 Resuscitation Status Routine Co-Sign Provider: Resuscitation Status: FULL: Full Resuscitation Discussed with: Patient and MAR Reviewed: Yes Vital Signs & Weight: Vital Signs (12 hours) Temp Pulse Resp BP BP BP Pulse Ox 09/23/18 15:44 97.9 F 65 16 170/72 H 97 09/23/18 12:13 98.2 F 67 16 128/58 L 99 09/23/18 08:12 97 09/23/18 07:19 98.8 F 76 17 167/70 H 97 Weight Weight 148 lb 4.8 oz I&O: 09/22/18 09/23/18 09/24/18 06:59 06:59 06:59 Intake Total 1640 2065 Output Total 206 Balance 1640 1859 Result Diagrams: 09/23/18 10:00 09/23/18 11:25 Additional Labs: Accuchecks 09/23/18 09/23/18 09/23/18 16:56 10:44 09:14 POC Glucose 225 H 173 H 94 09/23/18 09/23/18 09/22/18 05:21 00:28 20:12 POC Glucose 87 142 H 166 H EKG Reviewed by me: Yes (Tele SR) Phys Exam - Physical Examination Constitutional: NAD Respiratory: no wheezing, no rhonchi Cardiovascular: RRR, no rub Gastrointestinal: soft, non-tender, positive bowel sounds Musculoskeletal: no edema Dx/Plan - Plan DVT proph w/SCDs 1. Toxic metabolic encephalopathy secondary to elevated ammonia/urinary tract infection. 2. WILLY on CKD 3. 3. Diabetes mellitus type 2. 4. Hypertension. 5. Coronary artery disease, status post coronary artery bypass graft. 6. Psoriasis/ Hypomagnesemia PLAN: Cont Lactulose/Rifaximin Change Levaquin to PO Cont other meds as below Change IVF to NS @ 125 ml/hr due to WILLY AM labs Review of Systems - Review of Systems Respiratory: negative: Cough, Dry, Shortness of Breath, Hemoptysis, SOB with Excertion, Pleuritic Pain, Sputum, Wheezing Cardiovascular: negative: chest pain, palpitations, orthopnea, paroxysmal nocturnal dyspnea, edema, light headedness, other - Medications/Allergies Allergies/Adverse Reactions: Allergies Allergy/AdvReac Type Severity Reaction Status Date / Time naproxen sodium [From Aleve] Allergy Mild Verified 07/29/18 14:36 ceftriaxone [From Rocephin] Allergy Unknown Verified 07/29/18 14:36 hydrocodone Allergy Verified 07/29/18 14:36 Medications: Current Medications Aspirin (Ecotrin) 81 mg PO DAILY [facility] Last Admin: 09/23/18 09:03 Dose: 81 mg Carvedilol (Coreg) 6.25 mg PO BID-[facility] Last Admin: 09/23/18 17:30 Dose: 6.25 mg Dextrose/Water (Dextrose 50%) 25 gm SLOW IVP PRN PRN PRN Reason: Hypoglycemia Famotidine (Pepcid) 40 mg PO DAILY [facility] Last Admin: 09/23/18 09:03 Dose: 40 mg Glucagon (Glucagon) 1 mg IM PRN PRN PRN Reason: Hypoglycemia Hydralazine HCl (Apresoline) 10 mg SLOW IVP Q4H PRN PRN Reason: SBP Greater Than 180 Last Admin: 09/22/18 23:34 Dose: 10 mg Hydroxyzine HCl (Atarax) 10 mg PO TIDPRN PRN PRN Reason: Itching Dextrose/Water (D5w) 1,000 mls @ 0 mls/hr IV .Q0M PRN PRN Reason: Hypoglycemia Insulin Glargine 10 units/ (Miscellaneous Medication) 0.1 mls @ 0 mls/hr SC BID [facility] Last Admin: 09/23/18 10:43 Dose: 0.1 mls Sodium Chloride (Normal Saline 0.9%) 1,000 mls @ 125 mls/hr IV .Q8H [facility] Last Admin: 09/23/18 14:40 Dose: 1,000 mls Insulin Human Regular (Humulin R) 0 units SC .BEDTIME SLIDING SC PRN PRN Reason: Bedtime Correctional Scale Insulin Human Regular (Humulin R) 0 units SC .MILD SLIDING SCALE PRN PRN Reason: Mild Correctional Scale Last Admin: 09/23/18 17:30 Dose: 3 unit Labetalol HCl (Normodyne) 10 mg SLOW IVP Q4H PRN PRN Reason: Systolic BP > 180 Lactulose (Lactulose) 20 gm PO BID [facility] Last Admin: 09/23/18 09:02 Dose: 20 gm Levofloxacin (Levaquin) 250 mg PO 0600 [facility] Levothyroxine Sodium (Synthroid) 75 mcg PO 0600 [facility] Last Admin: 09/23/18 05:29 Dose: 75 mcg Paroxetine HCl (Paxil) 10 mg PO HS [facility] Last Admin: 09/22/18 21:00 Dose: 10 mg Rifaximin (Xifaxan) 550 mg PO BID [facility] Last Admin: 09/23/18 09:03 Dose: 550 mg Sodium Chloride (Flush - Normal Saline) 10 ml IVF Q12HR [facility] Last Admin: 09/23/18 09:49 Dose: Not Given Sodium Chloride (Flush - Normal Saline) 10 ml IVF PRN PRN PRN Reason: Saline Flush
--- NOTE | 2018-09-23 18:51 | PRG ---
DATE OF SERVICE: 09/23/2018 REASON FOR CONSULTATION: Hyperammonemia, possible cirrhosis. SUBJECTIVE: The patient states that she is doing better today and was able to tolerate both breakfast and lunch without difficulty. However, upon further questioning the patient, she initially did not remember that she had lunch today. She has been able to tolerate both lactulose and rifaximin administration and per the patient's has had approximately 3 to 4 small volume semi-solid bowel movements today. Currently, she denies any nausea, vomiting, fevers, chills, abdominal pain, or constipation. OBJECTIVE: VITAL SIGNS: Temperature 97.9, pulse 65, blood pressure 170/72, respiratory rate 16, and saturating 97% on room air. GENERAL: The patient was lying in bed, in no acute distress. Alert and oriented x3. CARDIOVASCULAR: Regular rate and rhythm. RESPIRATORY: Clear to auscultation bilaterally. ABDOMEN: Normoactive bowel sounds. Soft, nontender, and nondistended. EXTREMITIES: No cyanosis, clubbing, or edema. LABORATORY DATA: CBC with a white blood cell count of 7.5, hemoglobin 9.3, hematocrit 29.7, platelets 142. Chemistry with a sodium of 136, potassium 4, chloride 108, CO2 of 22, BUN 18, creatinine 1.51, glucose 184, and albumin 2.8. IMAGING DATA: CT of the abdomen and pelvis was obtained on September 23, 2018, which showed a very minimal nodular contour to the liver without any evidence of focal liver lesions or biliary dilatation. There was no evidence of free air, ascites/free fluid or stranding changes in the abdomen or pelvis indicative of inflammatory change. However, there was moderate retroperitoneal varices as well as significant varices in the small bowel mesentery. There was also a calcified left retroperitoneal lymph node, but no other enlarged retroperitoneal lymph nodes were identified. Also seen were mildly prominent bilateral inguinal lymph nodes. ASSESSMENT AND PLAN: The patient is a 78-year-old female with past medical history of diabetes, hypertension, chronic kidney disease, psoriasis, coronary artery disease status post coronary artery bypass graft, and hyperammonemia with unclear etiology presenting with encephalopathy secondary to hyperammonemia. Hyperammonemia/metabolic encephalopathy. The patient has a history of elevated ammonia for intermittent elevations of her serum ammonia over the course of the last year that has contributed to loss of sensorium and altered mental status on multiple occasions and has required multiple hospitalizations for treatment. She was seen as an outpatient and had undergone a full liver workup and had undergone extensive liver workup, which thus far had been negative for autoimmune hepatitis, primary biliary cholangitis, primary sclerosing cholangitis, chronic viral hepatitis, hemochromatosis, Alvarado disease, alpha-1 antitrypsin deficiency. 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 However, on this admission, she now has a right upper quadrant ultrasound that does not show any evidence of thrombosis within either the portal system or hepatic vein. However, she now has a right upper quadrant ultrasound that shows cirrhotic morphology as well as a CT scan showing very minimal nodular contour of the liver concerning for possible cirrhotic morphology. This is not correlate with her current laboratory studies given no elevation in her transaminitis, preserved hepatic function via total bilirubin, but does have a decreased albumin, which could be consistent with poor nutritional intake. However, more concerning is the presence of small bowel and mesenteric varices seen on the CT scan today, which are indeterminate in terms of the etiology. If these are more indicative of a shunt this bypassing the liver, then it could theoretically explain her intermittent episodes of hyperammonemia while she is exhibiting preserved hepatic function and no cirrhosis on liver biopsy. RECOMMENDATIONS: 1. We would continue to monitor neurological status and sensorium daily. 2. We will continue with lactulose administration along with rifaximin with a target goal of having approximately 3 to 4 bowel movements per day. 3. I will confer with the radiology service for possible shunt bypassing the liver and thereby creating these varices and further contributing to hyperammonemia. 4. With clearing of the patient's sensorium, the patient could be considered for discharge as I have no further workup planned at this time. We will continue to follow. Please call with any questions. Job ID: [id number]
[2018-09-23] MEDS: PARoxetine 20 MG TAB PO SCH (20:56)
[2018-09-24] MEDS: Levothyroxine Sodium 75 MCG TAB PO SCH (05:33)
[2018-09-24] MEDS: Sodium Chloride 0.9% 1,000 ML IV SCH ×2 (07:33→15:45)
[2018-09-24] MEDS: Carvedilol 6.25 MG TAB PO SCH ×2 (07:38→16:02)
[2018-09-24 08:53] LABS: Anion Gap 8 mmol/L (10-20); BUN (Urea Nitrogen) 18 mg/dL (9.8-20.1); Calc. Creatinine Clearance 36 mL/min (70-130); Calcium 8.1 mg/dL (7.8-10.44); Carbon Dioxide 21 mmol/L (23-31); Chloride 111 mmol/L (98-107); Estimated GFR-MDRD 37; Glucose 105 mg/dL (83-110); Potassium 4.3 mmol/L (3.5-5.1); Sodium 136 mmol/L (136-145)
[2018-09-24] MEDS: Insulin Glargine 10 UNITS in Pre-Filled Syringe 1 EACH SC SCH ×2 (09:45→20:44)
[2018-09-24] MEDS: Famotidine 20 MG TAB PO SCH (09:45)
[2018-09-24] MEDS: Aspirin 81 mg Enteric Coated Tablet PO SCH (09:45)
[2018-09-24] MEDS: Rifaximin 550 MG TAB PO SCH ×2 (09:46→20:44)
[2018-09-24] MEDS: Insulin Regular 300 UNITS/3 ML VIAL SC PRN ×2 (11:45→17:40)
[2018-09-24] MEDS ORDERED: Amlodipine 5 MG TAB PO SCH (15:15)
--- NOTE | 2018-09-24 15:20 | PDOC.PN ---
- Subjective Encounter Start Date: 09/24/18 Encounter Start Time: 15:17 Patient seen and examined for Encephalopathy. Mentation better. No new complaints. No overnight events - Objective Resuscitation Status - Order Detail: 09/21/18 02:07 Resuscitation Status Routine Co-Sign Provider: Resuscitation Status: FULL: Full Resuscitation Discussed with: Patient and MAR Reviewed: Yes Vital Signs & Weight: Vital Signs (12 hours) Temp Pulse Pulse Pulse Resp BP BP 09/24/18 11:27 97.8 F 63 17 09/24/18 11:04 61 63 160/71 H 181/74 H 09/24/18 07:34 97.9 F 70 16 09/24/18 04:00 97.9 F 66 17 BP BP BP Pulse Ox Pulse Ox 09/24/18 11:27 175/71 H 98 09/24/18 11:04 98 09/24/18 07:34 169/71 H 97 09/24/18 04:00 154/67 H 97 Weight Weight 148 lb 4.8 oz I&O: 09/23/18 09/24/18 09/25/18 06:59 06:59 06:59 Intake Total 2065 1000 Output Total 206 Balance 1859 1000 Result Diagrams: 09/23/18 10:00 09/24/18 08:20 Additional Labs: Accuchecks 09/24/18 09/24/18 09/24/18 10:47 09:50 05:44 POC Glucose 186 H 185 H 98 09/23/18 09/23/18 20:23 16:56 POC Glucose 211 H 225 H EKG Reviewed by me: Yes (Tele SR) Phys Exam - Physical Examination Constitutional: NAD Respiratory: no rhonchi, wheezing present (scat) Cardiovascular: RRR, no rub Gastrointestinal: soft, non-tender, positive bowel sounds Musculoskeletal: no edema Neurological: moves all 4 limbs Dx/Plan - Plan DVT proph w/SCDs 1. Toxic metabolic encephalopathy secondary to elevated ammonia/urinary tract infection. 2. WILLY on CKD 3 - improving. 3. Diabetes mellitus type 2. 4. Hypertension - uncontrolled 5. Coronary artery disease, status post coronary artery bypass graft. 6. Psoriasis/ Hypomagnesemia PLAN: Add Amlodipine Cont Coreg Cont Lactulose/Rifaximin DC Levaquin since cultures are negative Cont other meds as below DC IVF DC later today or in AM if BP improves Review of Systems - Review of Systems Respiratory: negative: Cough, Dry, Shortness of Breath, Hemoptysis, SOB with Excertion, Pleuritic Pain, Sputum, Wheezing Cardiovascular: negative: chest pain, palpitations, orthopnea, paroxysmal nocturnal dyspnea, edema, light headedness, other Gastrointestinal: negative: Nausea, Vomiting, Abdominal Pain, Diarrhea, Constipation, Melena, Hematochezia, Other - Medications/Allergies Allergies/Adverse Reactions: Allergies Allergy/AdvReac Type Severity Reaction Status Date / Time naproxen sodium [From Aleve] Allergy Mild Verified 07/29/18 14:36 ceftriaxone [From Rocephin] Allergy Unknown Verified 07/29/18 14:36 hydrocodone Allergy Verified 07/29/18 14:36 Medications: Current Medications Amlodipine Besylate (Norvasc) 5 mg PO NOW [facility] Stop: 09/24/18 17:15 Amlodipine Besylate (Norvasc) 5 mg PO DAILY [facility] Aspirin (Ecotrin) 81 mg PO DAILY [facility] Last Admin: 09/24/18 09:45 Dose: 81 mg Carvedilol (Coreg) 6.25 mg PO BID-[facility] Last Admin: 09/24/18 07:38 Dose: 6.25 mg Dextrose/Water (Dextrose 50%) 25 gm SLOW IVP PRN PRN PRN Reason: Hypoglycemia Famotidine (Pepcid) 40 mg PO DAILY [facility] Last Admin: 09/24/18 09:45 Dose: 40 mg Glucagon (Glucagon) 1 mg IM PRN PRN PRN Reason: Hypoglycemia Hydralazine HCl (Apresoline) 10 mg SLOW IVP Q4H PRN PRN Reason: SBP Greater Than 180 Last Admin: 09/22/18 23:34 Dose: 10 mg Hydroxyzine HCl (Atarax) 10 mg PO TIDPRN PRN PRN Reason: Itching Dextrose/Water (D5w) 1,000 mls @ 0 mls/hr IV .Q0M PRN PRN Reason: Hypoglycemia Insulin Glargine 10 units/ (Miscellaneous Medication) 0.1 mls @ 0 mls/hr SC BID [facility] Last Admin: 09/24/18 09:45 Dose: 0.1 mls Insulin Human Regular (Humulin R) 0 units SC .BEDTIME SLIDING SC PRN PRN Reason: Bedtime Correctional Scale Insulin Human Regular (Humulin R) 0 units SC .MILD SLIDING SCALE PRN PRN Reason: Mild Correctional Scale Last Admin: 09/24/18 11:45 Dose: 2 unit Labetalol HCl (Normodyne) 10 mg SLOW IVP Q4H PRN PRN Reason: Systolic BP > 180 Lactulose (Lactulose) 20 gm PO BID [facility] Last Admin: 09/24/18 09:45 Dose: 20 gm Levothyroxine Sodium (Synthroid) 75 mcg PO 0600 [facility] Last Admin: 09/24/18 05:33 Dose: 75 mcg Paroxetine HCl (Paxil) 10 mg PO HS [facility] Last Admin: 09/23/18 20:56 Dose: 10 mg Rifaximin (Xifaxan) 550 mg PO BID [facility] Last Admin: 09/24/18 09:46 Dose: 550 mg Sodium Chloride (Flush - Normal Saline) 10 ml IVF Q12HR [facility] Last Admin: 09/24/18 09:46 Dose: Not Given Sodium Chloride (Flush - Normal Saline) 10 ml IVF PRN PRN PRN Reason: Saline Flush
[2018-09-24] MEDS: hydrALAZINE 20 MG/ML VIAL SLOW IVP PRN (15:56)
--- NOTE | 2018-09-24 16:46 | PRG ---
DATE OF SERVICE: 09/24/2018 REASON FOR CONSULTATION: Hyperammonemia, possible cirrhosis. SUBJECTIVE: The patient did not experience any acute events or problems overnight. Today, she states that her mentation is much clear and has been able to remember things throughout the day more acutely. She also adds that she has had approximately 2 to 3 semi-solid bowel movements today. Currently, she denies any nausea, vomiting, fevers, chills, abdominal pain, or constipation. OBJECTIVE: VITAL SIGNS: Temperature 98.4, pulse 69, blood pressure 195/79, respiratory rate 17, and saturating 99% on room air. LABORATORY DATA: Chemistry with a sodium of 136, potassium 4.3, chloride 111, CO2 of 21, BUN 18, creatinine 1.37, and glucose 105. IMAGING DATA: CT of the abdomen and pelvis was obtained on September 23, 2018, which showed a very minimal nodular contour to the liver, suggestive of cirrhosis; however, no focal liver lesions or biliary dilatation was seen. There was no free air, free fluid, or stranding changes seen in the abdomen or pelvis; however, there were significant varices in the small bowel as well as the retroperitoneal areas concerning for portal hypertension. Upon conferring with radiologist, one of the small bowel varices appears to be tracking from the spleen to the inferior vena cava indicative of a splenocaval shunt. ASSESSMENT AND PLAN: The patient is a 78-year-old female with past medical history of diabetes; hypertension; chronic kidney disease; psoriasis; coronary artery disease, status post coronary artery bypass graft; and hyperammonemia with unclear etiology, presenting with metabolic encephalopathy secondary to hyperammonemia. 1. Hyperammonemia/metabolic encephalopathy/possible cirrhosis. 2. The patient is presenting with a history of elevated ammonia on multiple hospitalizations over the last year. She had undergone an extensive liver workup as an outpatient and had been thus far negative for autoimmune hepatitis, primary biliary cholangitis, primary sclerosing cholangitis, chronic viral hepatitis, hemochromatosis, Alvarado disease, alpha-1 antitrypsin deficiency, and a biopsy in July 2018, which did not show any evidence of significant fibrosis of the liver, rather some sinusoidal dilatation concerning for congestive hepatopathy; however, she underwent a CT scan on September 23, 2018, which showed the presence of significant small bowel varices that upon further examination are more consistent with a splenocaval shunt more than likely as a result of portal hypertension. With the presence of this shunt, it would explain why she does not have the presence of ascites, lower extremity edema, or splenomegaly resulting in thrombocytopenia alter her noninvasive fibrosis scores (Apri and FIB-4 scores) to the point where it would show that she does not have significant fibrosis in her liver. At this time, she may have cirrhosis of the liver, but with the biopsy in July 2017 showing no significant fibrosis is concerning for possible sampling bias. RECOMMENDATIONS: 1. We would continue to monitor neurological status and sensorium daily. 2. Continue with lactulose and rifaximin administration for hyperammonemia with target goal of having approximately 3 to 4 bowel movements per day. The patient may need a repeat liver biopsy versus a FibroScan procedure for further evaluation of possible liver cirrhosis, but this can be done as an outpatient. 3. With the clearing of the patient's sensorium, there are no further recommendations from a GI standpoint and can be discharged to follow up in the outpatient clinic. 4. We will sign off at this time. Please call with any questions. Job ID: [id number]
[2018-09-24] MEDS: PARoxetine 20 MG TAB PO SCH (20:44)
[2018-09-25] MEDS: Levothyroxine Sodium 75 MCG TAB PO SCH (05:37)
[2018-09-25] MEDS: Insulin Glargine 10 UNITS in Pre-Filled Syringe 1 EACH SC SCH ×2 (08:59→21:08)
[2018-09-25] MEDS: Carvedilol 6.25 MG TAB PO SCH ×2 (08:59→16:32)
--- NOTE | 2018-09-25 08:59 | PDOC.PN ---
- Subjective Encounter Start Date: 09/25/18 Encounter Start Time: 08:57 Subjective: Admitted with acute mental status in the context of recurrent AMS -: related to hyperammonemia and infection. on Eugenia for psoriasis -: Mental status is back to baseline. c/O wheezing. Off IVF - Objective Resuscitation Status - Order Detail: 09/21/18 02:07 Resuscitation Status Routine Co-Sign Provider: Resuscitation Status: FULL: Full Resuscitation Discussed with: Patient and Vital Signs & Weight: Vital Signs (12 hours) Temp Pulse Resp BP Pulse Ox 09/25/18 07:36 98.2 F 72 15 157/64 H 96 09/25/18 04:00 98.7 F 73 14 152/67 H 97 Weight Weight 148 lb 4.8 oz I&O: 09/24/18 09/25/18 09/26/18 06:59 06:59 06:59 Intake Total 1000 Balance 1000 Result Diagrams: 09/23/18 10:00 09/24/18 08:20 Additional Labs: Accuchecks 09/25/18 09/24/18 09/24/18 08:45 20:35 17:25 POC Glucose 198 H 214 H 176 H 09/24/18 09/24/18 10:47 09:50 POC Glucose 186 H 185 H Phys Exam - Physical Examination elderly female in no distrress HEENT: PERRLA, moist MMs Neck: supple fair air entry with scattered wheezing. air entry is decreased at both base Cardiovascular: RRR soft systolic murmur noted Gastrointestinal: soft, non-tender, positive bowel sounds Musculoskeletal: no edema, pulses present Neurological: non-focal, moves all 4 limbs ambulant Psychiatric: A&O x 3 Deviation from normal: scattered patchy erythematous scaly rash noted on body and limbs Dx/Plan (1) WILLY (acute kidney injury) Code(s): N17.9 - ACUTE KIDNEY FAILURE, UNSPECIFIED Status: Acute (2) Wheezing on auscultation Code(s): R06.2 - WHEEZING Status: Acute (3) Hyperammonemia Code(s): E72.20 - DISORDER OF UREA CYCLE METABOLISM, UNSPECIFIED Status: Acute Comment: Chronic. Prior workup with no specific etiology identified. Does not have significant liver disease. Will continue the Lactulose, Rifaximin. (4) UTI (urinary tract infection) Status: Acute Comment: E. coli. Continue Recephin. (5) CKD (chronic kidney disease) Code(s): N18.9 - CHRONIC KIDNEY DISEASE, UNSPECIFIED Status: Chronic Qualifiers: Chronic kidney disease stage: stage 3 (moderate) Qualified Code(s): N18.3 - Chronic kidney disease, stage 3 (moderate) (6) Diabetes type 2, controlled Code(s): E11.9 - TYPE 2 DIABETES MELLITUS WITHOUT COMPLICATIONS Status: Chronic Qualifiers: Diabetes mellitus senior care insulin use: with senior care use Diabetes mellitus complication status: with kidney complications Diabetes mellitus complication detail: with chronic kidney disease Chronic kidney disease stage : stage 3 (moderate) Qualified Code(s): E11.22 - Type 2 diabetes mellitus with diabetic chronic kidney disease; N18.3 - Chronic kidney disease, stage 3 ( moderate); N18.3 - Chronic kidney disease, stage 3 (moderate); Z79.4 - trouble clerk (current) use of insulin; Z79.4 - group home (current) use of insulin; Z79.4 - group home (current) use of insulin; Z79.4 - trouble clerk (current) use of insulin Comment: Well controlled. Continue current medications. (7) Hypertension Code(s): I10 - ESSENTIAL (PRIMARY) HYPERTENSION Status: Chronic Qualifiers: Hypertension type: essential hypertension Qualified Code(s): I10 - Essential (primary) hypertension Comment: Achieving better control since home meds restarted. Continue amlodipine and Carvedilol. (8) Hypothyroidism Code(s): E03.9 - HYPOTHYROIDISM, UNSPECIFIED Status: Chronic Qualifiers: Hypothyroidism type: unspecified Qualified Code(s): E03.9 - Hypothyroidism , unspecified Comment: Free T4 normal. Continue levothyroxine. (9) Moderate aortic stenosis Code(s): I35.0 - NONRHEUMATIC AORTIC (VALVE) STENOSIS Status: Chronic Comment: Currently asymptomatic. (10) Physical deconditioning Code(s): R53.81 - OTHER MALAISE Status: Chronic Comment: Multiple recent hospital admissions and SNF stays. PT on board. Will consult CM as well for discharge planning. (11) Psoriasis Code(s): L40.9 - PSORIASIS, UNSPECIFIED Status: Chronic Comment: Stable. On Humira (12) Acute metabolic encephalopathy Code(s): G93.41 - METABOLIC ENCEPHALOPATHY Status: Resolved Comment: Resolved. Serum ammonia >100. AO today. Continue lactulose. (13) Liver cirrhosis Code(s): K74.60 - UNSPECIFIED CIRRHOSIS OF LIVER Status: Acute (14) Portal hypertension Code(s): K76.6 - PORTAL HYPERTENSION Status: Acute - Plan Increase amlodipine to 10 mg daily for adequate BP control. -: Get BMP, BNP and CXR -: Start breathing treatment. -: Re evaluate later for possible discharge * .
[2018-09-25] MEDS: Famotidine 20 MG TAB PO SCH (09:00)
[2018-09-25] MEDS ORDERED: Amlodipine 5 MG TAB PO SCH ×2 (09:00)
[2018-09-25] MEDS: Amlodipine 10 MG TAB PO SCH (09:00)
[2018-09-25] MEDS: Aspirin 81 mg Enteric Coated Tablet PO SCH (09:00)
[2018-09-25] MEDS: Rifaximin 550 MG TAB PO SCH ×2 (09:01→21:08)
--- NOTE | 2018-09-25 10:39 | RAD ---
FRadiograph chest 2 views: 09/25/2018 at 10:27 AM HISTORY: 78-year-old female with dyspnea and wheezing COMPARISON: 1. 08/01/2019 FINDINGS: New finding of diffuse pulmonary venous prominence. New finding of mild diffuse interstitial densitie s probably representing interstitial edema. New finding of mild blunting of lateral costophrenic angl es representing very small bilateral pleural effusions. Cardiac size mildly enlarged. No pneumothorax . IMPRESSION: Evidence for mild congestive heart failure or fluid volume overload.
[2018-09-25 10:57] LABS: Creatinine, Urine 91.46 mg/dL (47-110)
[2018-09-25 11:11] LABS: Bilirubin Negative (Negative); Blood, Urine Large (Negative); Clarity TURBID (Clear); Glucose, Urine (Dipstick) Negative (Negative); Leukocyte Large (Negative); Nitrite Negative (Negative); Protein, Urine (Dipstick) 100 mg/dL (Neg-Trace); Specific Gravity, Urine 1.016 (1.002-1.036); Urobilinogen 0.2 mg/dL (0.2-1.0)
[2018-09-25 11:16] LABS: Bacteria/HPF None Seen HPF (None Seen); Hyaline Casts/LPF 0-3 HYALINE CAST LPF (0-3 Hyaline); Pathc Cast-AUWi Flag 0.68 (0-2.49); Squamous Epithelial 0-3 HPF (0-3)
[2018-09-25 11:19] LABS: Yeast-AUWi Flag 128.8 (0-25.0)
[2018-09-25 11:30] LABS: Yeast-All Forms 1+ HPF (None Seen)
[2018-09-25 13:02] LABS: Anion Gap 12 mmol/L (10-20); BUN (Urea Nitrogen) 24 mg/dL (9.8-20.1); Calc. Creatinine Clearance 37 mL/min (70-130); Calcium 8.4 mg/dL (7.8-10.44); Carbon Dioxide 17 mmol/L (23-31); Chloride 111 mmol/L (98-107); Estimated GFR-MDRD 39; Glucose 141 mg/dL (83-110); Potassium 4.4 mmol/L (3.5-5.1); Sodium 136 mmol/L (136-145)
[2018-09-25] MEDS ORDERED: Furosemide 20 MG TAB PO SCH (15:45)
[2018-09-25] MEDS: Insulin Regular 300 UNITS/3 ML VIAL SC PRN (17:39)
[2018-09-25] MEDS: PARoxetine 20 MG TAB PO SCH (21:08)
[2018-09-26 05:26] LABS: Anion Gap 11 mmol/L (10-20); BUN (Urea Nitrogen) 28 mg/dL (9.8-20.1); Calc. Creatinine Clearance 36 mL/min (70-130); Carbon Dioxide 20 mmol/L (23-31); Chloride 112 mmol/L (98-107); Estimated GFR-MDRD 38; Glucose 103 mg/dL (83-110); Potassium 4.5 mmol/L (3.5-5.1); Sodium 138 mmol/L (136-145)
[2018-09-26] MEDS: Levothyroxine Sodium 75 MCG TAB PO SCH (05:47)
--- NOTE | 2018-09-26 08:26 | DIS ---
DATE OF ADMISSION: 09/21/2018 DATE OF DISCHARGE: 09/26/2018 DISCHARGE DIAGNOSES: 1. Acute toxic and metabolic encephalopathy. 2. Acute kidney injury. 3. Urinary tract infection due to Escherichia coli. 4. Hyperammonemia. 5. Liver cirrhosis, new diagnosis. 6. Portal hypertension. 7. Moderate aortic stenosis. 8. Hypothyroidism. 9. Hypertension. 10. Type 2 diabetes mellitus. 11. Chronic kidney disease, stage 3. 12. Psoriasis. 13. Physical deconditioning. CONSULTS: Gastroenterology. HOSPITAL COURSE: A 78-year-old female with prior history of recurrent acute encephalopathy related to hyperammonemia and UTI, who was admitted due to worsening confusion associated with hallucination as well as generalized weakness and poor oral intake. Evaluation revealed features of urinary tract infection and ammonia level was markedly elevated. The patient also was found to have elevated creatinine consistent with acute kidney injury. She was started on antibiotics, IV fluids, rifaximin, and lactulose with improvement in mental status. GI consult was obtained. Of note, the patient recently had a liver biopsy, which did not show features of cirrhosis. Further evaluation with ultrasound showed features of cirrhosis and the patient was further evaluated with CT abdomen and pelvis, which showed features of cirrhosis as well as varices and spleno-caval shunt consistent with portal hypertension. It was felt that the negative biopsy was due to sampling error. The patient also was treated with Physical Therapy with improvement in physical deconditioning. She was also found to have hypertension and was started on new medication, amlodipine and Coreg. She remained stable and was subsequently discharged home. She is to follow up with the PCP and GI doctor. She is also to follow up with a kidney doctor of her choice. PHYSICAL EXAMINATION: VITAL SIGNS: Temperature, pulse 66, respiratory rate 16, SpO2 of 98 on room air, and blood pressure 137/63. GENERAL: Elderly female, in no obvious distress. Afebrile. Anicteric. Acyanotic. HEENT: Normocephalic, atraumatic. Pupils are equal and reacting to light. CARDIOVASCULAR: Regular rhythm and rate with normal heart sounds 1 and 2. Soft systolic murmur was appreciated. RESPIRATORY: Fair air entry bilaterally with some transmitted sounds. No use of accessory muscles was appreciated. Some rhonchi was high, but this was felt to originate from the neck. GASTROINTESTINAL: Abdomen is full, soft, nontender, and nondistended with normal bowel sounds. EXTREMITIES: Grossly normal looking, atraumatic with no edema or erythema. SKIN: Generalized patchy erythematous plaques with scale noted. NEUROLOGIC: Conscious, alert, oriented x3 with appropriate mental status. The patient is conversational. Moves all extremities. Cranial nerves II through XII are intact. PERTINENT DIAGNOSTIC DATA: Ultrasound of the abdomen showed cirrhotic morphology of the liver with patent hepatic and portal venous system. CT scan of the abdomen and pelvis without and with contrast showed significant varices in the retroperitoneum and in the bowel mesentery. The liver had a slightly nodular contour, which may be secondary to cirrhosis. No ascites or splenomegaly were seen to suggest portal hypertension. Nonspecific mildly prominent bilateral inguinal lymph nodes were noted as well as small left pleural effusion. DISCHARGE CONDITION: Improved and stable. DISCHARGE MEDICATIONS: 1. Adalimumab 10 mg subcutaneously as directed. 2. Aspirin 81 mg p.o. daily. 3. Calcium carbonate/vitamin D 1350 mg/200 units one tablet p.o. daily. 4. Famotidine 40 mg daily. 5. Atarax 10 mg p.o. t.i.d. p.r.n. 6. Levemir 10 units subcutaneously b.i.d. 7. Levothyroxine 75 mg p.o. daily. 8. Metformin 500 mg b.i.d. 9. Paroxetine 10 mg p.o. daily at bedtime. 10. Amlodipine 10 mg daily. 11. Carvedilol 6.25 mg p.o. b.i.d. 12. Lactulose 20 g p.o. b.i.d. 13. Rifaximin 550 mg p.o. b.i.d. TIME SPENT: This discharge took more than 38 minutes. Job ID: [id number]
[2018-09-26] MEDS: Amlodipine 10 MG TAB PO SCH (09:35)
[2018-09-26] MEDS: Carvedilol 6.25 MG TAB PO SCH (09:35)
[2018-09-26] MEDS: Famotidine 20 MG TAB PO SCH (09:36)
[2018-09-26] MEDS: Rifaximin 550 MG TAB PO SCH (09:36)
[2018-09-26] MEDS: Aspirin 81 mg Enteric Coated Tablet PO SCH (09:36)
[2018-09-26] MEDS: Insulin Glargine 10 UNITS in Pre-Filled Syringe 1 EACH SC SCH (09:36)
[2018-09-26 12:02] VITALS: BP 160/72; TEMP 97.6
[2018-09-26] MEDS: Insulin Regular 300 UNITS/3 ML VIAL SC PRN (12:03)
== END 2018-09-26 13:07 | disposition home or self-care (01) | DRG 689 ==
LOC: ERS 19:28 → 2NO 09-21 00:07
PROVIDERS: ADMIT Family Medicine; ATTEND Family Medicine
DX: N39.0 Urinary tract infection, site not specified (principal); G92 Toxic encephalopathy; I13.0 Hypertensive heart and chronic kidney disease with heart failure and stage 1 through stage 4 chronic kidney disease, or unspecified chronic kidney disease; K76.6 Portal hypertension; N17.9 Acute kidney failure, unspecified; I25.10 Atherosclerotic heart disease of native coronary artery without angina pectoris; I50.9 Heart failure, unspecified; L40.9 Psoriasis, unspecified; F32.9 Major depressive disorder, single episode, unspecified; Z95.1 Presence of aortocoronary bypass graft; Z88.5 Allergy status to narcotic agent; Z79.84 Long term (current) use of oral hypoglycemic drugs; Z88.1 Allergy status to other antibiotic agents; Z79.82 Long term (current) use of aspirin; Z79.899 Other long term (current) drug therapy; Z90.710 Acquired absence of both cervix and uterus; Z79.4 Long term (current) use of insulin; E03.9 Hypothyroidism, unspecified; K72.90 Hepatic failure, unspecified without coma; E11.22 Type 2 diabetes mellitus with diabetic chronic kidney disease; N18.3 Chronic kidney disease, stage 3 (moderate); K74.60 Unspecified cirrhosis of liver; E83.42 Hypomagnesemia; I35.0 Nonrheumatic aortic (valve) stenosis; B96.20 Unspecified Escherichia coli [E. coli] as the cause of diseases classified elsewhere
CPT/HCPCS: 36415; 36416; 51701; 70450; 71045; 71046; 74178; 76705; 80048; 80053; 81001; 81003; 81015; 82105; 82140; 82550; 82553; 82570; 83690; 83735; 83880; 84100; 84156; 84300; 84443; 84484; 84540; 85025; 87040; 87086; 93005; 94640; 96361; 96365; 96375; A4353; J0360; J1650; J1815; J1825; J1956; J3475; J3480; J7620; S0028

== ENCOUNTER 2018-10-28 15:27 | Outpatient (CLI) | payer MEDICARE ==
--- NOTE | 2018-10-28 16:52 | ULT ---
BILATERAL LOWER EXTREMITY VENOUS DUPLEX EXAM: 10/28/18 Deep veins of both lower extremities evaluated with color Doppler, spectral analysis and compression. INDICATIONS: Bilateral lower extremity pain and edema. Deep veins of both lower extremities show normal blood flow and compression. No evidence of DVT. There are prominent inguinal lymph nodes seen bilaterally measuring up to 2 cm. IMPRESSION: 1. No evidence of lower extremity DVT. 2. Mildly prominent bilateral inguinal lymph nodes. Correlate clinically. POS: DENISE
== END 2018-10-28 15:28 | disposition home or self-care (01) ==
LOC: BICULT 15:27
DX: M79.89 Other specified soft tissue disorders (principal)
CPT/HCPCS: 93970

== ENCOUNTER 2018-11-17 13:18 | Inpatient (IN) | payer MEDICARE ==
[2018-11-17 14:14] LABS: #Eosinphils 0.3 thou/uL (0.0-0.7); #Monocytes 0.8 thou/uL (0.11-0.59); #Neutrophils 2.4 thou/uL (1.40-6.50); %Basophils 0.5 % (0.0-1.0); %Eosinophils 5.6 % (0.0-10.0); %Monocytes 14.7 % (0.0-10.0); %Neutrophils 43.2 % (42.0-75.0); Hemoglobin 12.4 g/dL (12.0-16.0); Mean Corpuscular HGB CONC 31.7 g/dL (32.0-36.0); Mean Corpuscular Hemoglobin 27.9 pg (27.0-31.0); Mean Platelet Volume 7.2 fL (7.4-10.4); Platelet Count 172 thou/uL (130-400); RBC Distribution Width 16.4 % (11.5-14.5); Red Blood Cell (RBC) Count 4.44 mill/uL (4.20-5.40); White Blood Cell (WBC) Count 5.5 thou/uL (4.8-10.8)
[2018-11-17 14:25] LABS: Bilirubin Negative (Negative); Blood, Urine Small (Negative); Clarity TURBID (Clear); Glucose, Urine (Dipstick) Negative (Negative); Leukocyte Large (Negative); Nitrite Positive (Negative); Protein, Urine (Dipstick) 100 mg/dL (Neg-Trace); Specific Gravity, Urine 1.012 (1.002-1.036); Urobilinogen 0.2 mg/dL (0.2-1.0); pH, Urine 6.5 (5.0-9.0)
[2018-11-17 14:30] LABS: Bacteria/HPF 4+ HPF (None Seen); Hyaline Casts/LPF 0-3 HYALINE CAST LPF (0-3 Hyaline); Squamous Epithelial 0-3 HPF (0-3)
[2018-11-17 14:34] LABS: ALT (SGPT) 16 U/L (8-55); AST (SGOT) 36 U/L (5-34); Albumin 3.8 g/dL (3.4-4.8); Alkaline Phosphatase 96 U/L (40-150); Anion Gap 15 mmol/L (10-20); BUN (Urea Nitrogen) 38 mg/dL (9.8-20.1); Bilirubin, Total 0.8 mg/dL (0.2-1.2); Calc. Creatinine Clearance 0 mL/min (70-130); Calcium 9.8 mg/dL (7.8-10.44); Carbon Dioxide 24 mmol/L (23-31); Chloride 104 mmol/L (98-107); Estimated GFR-MDRD 34; Globulin 5.2 g/dL (2.4-3.5); Glucose 113 mg/dL (83-110); Potassium 3.7 mmol/L (3.5-5.1); Sodium 139 mmol/L (136-145)
[2018-11-17] MEDS ORDERED: Carvedilol 6.25 MG TAB PO SCH (15:30)
--- NOTE | 2018-11-17 16:18 | HP ---
PRIMARY CARE PROVIDER: Dr. Pedro Amezcua. HISTORY OF PRESENT ILLNESS: The patient over the past couple of days had increasing weakness, some confusion, unable to stand up. She has a history of hepatic encephalopathy and has been having up to 5 stools a day. No fever, chills, shortness of breath. She was evaluated in the emergency room and found to have evidence of UTI, high ammonia level. She was referred for admission. PAST MEDICAL HISTORY: Frequent urinary tract infections; hyperammonemia syndrome was suspected, but not biopsy-proven; cirrhosis; coronary artery disease; type 2 diabetes mellitus with chronic kidney disease 3; history of congestive heart failure; hypertension; depression. PAST SURGICAL HISTORY: Coronary artery bypass graft in May of 2017, hysterectomy, right ankle surgery, cardiac ablation. CURRENT MEDICATIONS: Reviewed with family. 1. Levothyroxine 75 mcg a day. 2. Coreg 6.25 twice a day. 3. Aspirin 81 mg a day. 4. Famotidine 40 mg a day. 5. Metformin 500 mg twice a day. 6. Paxil 10 mg a day. 7. Xifaxan 550 mg once a day. 8. Lactulose 20 g twice a day. ALLERGIES: NAPROXEN, CEFTRIAXONE, HYDROCODONE. FAMILY HISTORY: Negative for heart disease, diabetes, malignancy, or liver disease. SOCIAL HISTORY: Currently lives at home. Has a java development team lead. Full code status. Reviewed with family. No alcohol, tobacco, or drug use. REVIEW OF SYSTEMS: Review of systems was attempted and I am not sure how valuable it is. However, she denied any dizziness, fainting, fever, or chills. EYES: Denied any new visual complaints. EARS, NOSE, AND THROAT: No ear pain or drainage. No nasal bleeding. No trouble swallowing. CARDIAC: No chest pain, shortness of breath, orthopnea. RESPIRATION: No cough, wheezing, or asthma. GASTROINTESTINAL: No nausea, vomiting, abdominal pain. She does have currently an average of 5 loose stools a day. No blood. GENITOURINARY: No hematuria or dysuria. MUSCULOSKELETAL: No pain or swelling in her arms or legs. NEUROLOGICAL: History of hepatic encephalopathy with ammonia as high as 135. PSYCHIATRIC: History of anxiety, depression, on antidepressants. SKIN: Easy bruising. No rash. HEME/LYMPH: No tender or swollen lymph nodes in the axilla, inguinal, or cervical area. PHYSICAL EXAMINATION: GENERAL: She is alert, answers questions, is oriented grossly. VITAL SIGNS: Blood pressure 216/70, pulse 63, respirations 14, temperature 98, O2 saturation 98%. HEENT: Examination of her head, eyes, ears, nose, and throat revealed pupils are equal and round. Extraocular movements are intact. Sclerae are white. Tympanic membranes are clear. Nose is clear. Oral mucous membranes are wet without lesions. NECK: No jugular venous distention, adenopathy, or thyromegaly. CHEST: Grossly clear to auscultation and percussion. HEART: Regular rate and rhythm. First and second heart sounds are clear. No murmurs were appreciated. ABDOMEN: Soft. Bowel sounds were normal. There was no appreciated mass or hepatosplenomegaly. There were bowel sounds. EXTREMITIES: Reveal no cyanosis, clubbing, or edema. PULSES: Carotid, radial, femoral, and dorsalis pedis pulses intact and symmetric. SKIN: Warm and dry without bruises or rash. HEME/LYMPH: No tender or swollen lymph nodes in axilla, inguinal, or cervical area. NEUROLOGICAL: Cranial nerves 2 through 12 are intact. Moves all extremities. No asterixis. DIAGNOSTIC DATA: EKG, regular sinus rhythm with inverted T-waves in the lateral limb leads and some other nonspecific ST abnormality. No acute changes unchanged from previous, reviewed by me. No radiological studies presented. White count is 5.5, hemoglobin is 12.4, platelet count is 172,000. Urine shows too many to count white cells, large leukocyte esterase, and positive nitrites. Creatinine is 1.47, BUN 38. Sodium was 139, potassium was 3.7, bilirubin 0.8, AST 36, ALT 16. Ammonia was markedly elevated at 82. ADMITTING DIAGNOSES: 1. Weakness. 2. Urinary tract infection. 3. Cirrhosis with high ammonia. 4. Diabetes mellitus type 2 with chronic kidney disease 3. 5. Coronary artery disease. 6. Hypertension. PLAN: Blood and urine cultures have been drawn. We will start Cipro 400 mg IV q.12 hours, which has already been started in the emergency room. Her home medicines will be continued including lactulose, Xifaxan, etc. Accu-Cheks and sliding scale will be followed. Ammonia will be repeated in the morning. Because of the multiplicity of this woman's problems, her confusion, the high ammonia, and the UTI, which is recurrent, she will need at least two overnights to get a definitive culture to consider discharge on this patient. Therefore, because of the complicated medical systems and the need for a definitive urine culture, she will be made inpatient. Job ID: [id number]
[2018-11-17] MEDS ORDERED: Ondansetron ODT 4 MG TAB PO PRN (18:06)
[2018-11-17] MEDS ORDERED: Dextrose 50% Abboject 50 ML SYRINGE SLOW IVP PRN (18:06)
[2018-11-17] MEDS ORDERED: Dextrose 5% in Water 1,000 ML IV PRN (18:06)
[2018-11-17] MEDS ORDERED: Acetaminophen 325 MG TAB PO PRN (18:06)
[2018-11-17] MEDS ORDERED: metFORMIN 500 MG TAB PO SCH (18:15)
[2018-11-17] MEDS ORDERED: Prevnar 13-Val Conj/PF 0.5 ML SYRINGE IM ONE (18:45)
[2018-11-17 19:25] VITALS: BMI 22.5
[2018-11-17] MEDS: PARoxetine 20 MG TAB PO SCH (20:42)
[2018-11-17] MEDS: Carvedilol 6.25 MG TAB PO SCH (20:42)
[2018-11-17] MEDS: Rifaximin 550 MG TAB PO SCH (20:43)
[2018-11-17] MEDS: HumaLOG 300 UNITS/3 ML VIAL SC PRN (21:47)
[2018-11-18] MEDS: Levothyroxine Sodium 75 MCG TAB PO SCH (05:20)
[2018-11-18 06:25] LABS: #Basophils 0.1 thou/uL (0.0-0.2); #Eosinphils 0.2 thou/uL (0.0-0.7); #Lymphocytes 1.8 thou/uL (1.20-3.40); #Monocytes 0.7 thou/uL (0.11-0.59); #Neutrophils 1.7 thou/uL (1.40-6.50); %Basophils 1.7 % (0.0-1.0); %Eosinophils 5.2 % (0.0-10.0); %Lymphocytes 40.3 % (21.0-51.0); %Monocytes 14.9 % (0.0-10.0); %Neutrophils 37.8 % (42.0-75.0); Hemoglobin 11.1 g/dL (12.0-16.0); Mean Corpuscular HGB CONC 32.3 g/dL (32.0-36.0); Mean Corpuscular Hemoglobin 28.4 pg (27.0-31.0); Mean Corpuscular Volume 87.8 fL (78.0-98.0); Mean Platelet Volume 7.5 fL (7.4-10.4); Platelet Count 143 thou/uL (130-400); RBC Distribution Width 16.1 % (11.5-14.5); Red Blood Cell (RBC) Count 3.92 mill/uL (4.20-5.40); White Blood Cell (WBC) Count 4.5 thou/uL (4.8-10.8)
[2018-11-18 06:43] LABS: Anion Gap 13 mmol/L (10-20); BUN (Urea Nitrogen) 37 mg/dL (9.8-20.1); Calc. Creatinine Clearance 35 mL/min (70-130); Calcium 9.3 mg/dL (7.8-10.44); Carbon Dioxide 24 mmol/L (23-31); Chloride 106 mmol/L (98-107); Estimated GFR-MDRD 40; Glucose 130 mg/dL (83-110); Potassium 3.7 mmol/L (3.5-5.1); Sodium 139 mmol/L (136-145)
[2018-11-18] MEDS: Carvedilol 6.25 MG TAB PO SCH ×2 (07:55→20:55)
[2018-11-18] MEDS: metFORMIN 500 MG TAB PO SCH ×2 (07:55→17:41)
[2018-11-18] MEDS: Rifaximin 550 MG TAB PO SCH ×2 (07:55→20:57)
[2018-11-18] MEDS: Ciprofloxacin Lactate/D5W 200 MG in Premix Bag 1 BAG IVPB SCH ×2 (08:11→20:56)
[2018-11-18] MEDS: Famotidine 20 MG TAB PO SCH (09:00)
[2018-11-18] MEDS ORDERED: hydrOXYzine 10 MG TAB PO PRN (10:45)
--- NOTE | 2018-11-18 11:27 | PDOC.PN ---
- Subjective Encounter Start Date: 11/18/18 Encounter Start Time: 09:30 -: old records requested/rev Patient seen and examined. pt is weak, no BM yet, feels better today, No overnight events - Objective Resuscitation Status - Order Detail: 11/17/18 15:14 Resuscitation Status Routine Resuscitation Status: FULL: Full Resuscitation Discussed with: daughter JER Reviewed: Yes Vital Signs & Weight: Vital Signs (12 hours) Temp Pulse Resp BP Pulse Ox 11/18/18 11:17 98.4 F 66 16 182/69 H 97 11/18/18 09:57 65 144/73 H 11/18/18 07:53 97.7 F 65 16 191/64 H 97 11/18/18 04:15 142/60 H 11/18/18 03:48 97.7 F 63 20 173/76 H 96 11/17/18 23:37 97.2 F L 55 L 20 146/72 H 95 Weight Weight 135 lb 7 oz I&O: 11/17/18 11/18/18 11/19/18 06:59 06:59 06:59 Intake Total 360 Balance 360 Result Diagrams: 11/18/18 05:39 11/18/18 05:39 Additional Labs: Accuchecks 11/18/18 11/17/18 04:26 21:32 POC Glucose 114 H 237 H Phys Exam - Physical Examination Constitutional: NAD HEENT: PERRLA, moist MMs, sclera anicteric Neck: no JVD, supple Respiratory: no wheezing, no rales, no rhonchi Cardiovascular: RRR, no rub SM+ at aortic area Gastrointestinal: soft, non-tender, no distention, positive bowel sounds Musculoskeletal: no edema, pulses present Neurological: non-focal, normal sensation, moves all 4 limbs no asterexis Lymphatic: no nodes Psychiatric: normal affect, A&O x 3 Skin: no rash, normal turgor Dx/Plan (1) UTI (urinary tract infection) Status: Acute Comment: (2) Hyperammonemia Code(s): E72.20 - DISORDER OF UREA CYCLE METABOLISM, UNSPECIFIED Status: Acute Comment: (3) Chronic anemia Code(s): D64.9 - ANEMIA, UNSPECIFIED Status: Chronic Comment: (4) Coronary artery disease Code(s): I25.10 - ATHSCL HEART DISEASE OF [place] CORONARY ARTERY W/O ANG PCTRS Status: Chronic Qualifiers: Comment: (5) Diabetes type 2, controlled Code(s): E11.9 - TYPE 2 DIABETES MELLITUS WITHOUT COMPLICATIONS Status: Chronic Qualifiers: Comment: (6) Hypertension Code(s): I10 - ESSENTIAL (PRIMARY) HYPERTENSION Status: Chronic Qualifiers: Comment: (7) Hypothyroidism Code(s): E03.9 - HYPOTHYROIDISM, UNSPECIFIED Status: Chronic Qualifiers: Comment: (8) Liver cirrhosis Code(s): K74.60 - UNSPECIFIED CIRRHOSIS OF LIVER Status: Chronic (9) Moderate aortic stenosis Code(s): I35.0 - NONRHEUMATIC AORTIC (VALVE) STENOSIS Status: Chronic Comment: (10) Physical deconditioning Code(s): R53.81 - OTHER MALAISE Status: Chronic Comment: (11) Portal hypertension Code(s): K76.6 - PORTAL HYPERTENSION Status: Chronic (12) Psoriasis Code(s): L40.9 - PSORIASIS, UNSPECIFIED Status: Chronic Comment: - Plan cont current plan of care, plan discussed w/ family, continue antibiotics, PT/OT * continue cipro * increase lactulose * start PT/OT * medication reviewed as below * symptomatic treatment * discussed with family bedside * repeat labs tomorrow. Review of Systems - Review of Systems Constitutional: weakness. negative: fever, chills, sweats, malaise, other ENT: negative: Ear Pain, Ear Discharge, Nose Pain, Nose Discharge, Nose Congestion, Mouth Pain, Mouth Swelling, Throat Pain, Throat Swelling, Other Respiratory: negative: Cough, Dry, Shortness of Breath, Hemoptysis, SOB with Excertion, Pleuritic Pain, Sputum, Wheezing Cardiovascular: negative: chest pain, palpitations, orthopnea, paroxysmal nocturnal dyspnea, edema, light headedness, other Gastrointestinal: negative: Nausea, Vomiting, Abdominal Pain, Diarrhea, Constipation, Melena, Hematochezia, Other Genitourinary: negative: Dysuria, Frequency, Incontinence, Hematuria, Retention , Other Musculoskeletal: negative: Neck Pain, Shoulder Pain, Arm Pain, Back Pain, Hand Pain, Leg Pain, Foot Pain, Other - Medications/Allergies Allergies/Adverse Reactions: Allergies Allergy/AdvReac Type Severity Reaction Status Date / Time naproxen sodium [From Aleve] Allergy Mild Verified 11/17/18 19:22 ceftriaxone [From Rocephin] Allergy Unknown Verified 11/17/18 19:22 hydrocodone Allergy Verified 11/17/18 19:22 Medications: Current Medications Acetaminophen (Tylenol) 650 mg PO Q4H PRN PRN Reason: Headache/Fever/Mild Pain (1-3) Calcium/Vitamin D (Caltrate 600 + Vit D) 1 tab PO DAILY [facility] Carvedilol (Coreg) 6.25 mg PO BID [facility] Last Admin: 11/18/18 07:55 Dose: 6.25 mg Dextrose/Water (Dextrose 50%) 25 gm SLOW IVP PRN PRN PRN Reason: Hypoglycemia Famotidine (Pepcid) 40 mg PO DAILY [facility] Furosemide (Lasix) 40 mg PO DAILY-AC [facility] Glucagon (Glucagon) 1 mg IM PRN PRN PRN Reason: Hypoglycemia Hydroxyzine HCl (Atarax) 10 mg PO TIDPRN PRN PRN Reason: Itching Ciprofloxacin/Dextrose 200 mg/ (Device) 100 mls @ 100 mls/hr IVPB Q12HR [facility] Last Admin: 11/18/18 08:11 Dose: 100 mls Dextrose/Water (D5w) 1,000 mls @ 0 mls/hr IV .Q0M PRN PRN Reason: Hypoglycemia Insulin Human Lispro (Humalog) 0 units SC .MILD SLIDING SCALE PRN PRN Reason: Mild Correctional Scale Last Admin: 11/17/18 21:47 Dose: 3 unit Lactulose (Lactulose) 20 gm PO QID [facility] Levothyroxine Sodium (Synthroid) 75 mcg PO 0600 [facility] Last Admin: 11/18/18 05:20 Dose: 75 mcg Metformin HCl (Glucophage) 500 mg PO BID-[facility] Last Admin: 11/18/18 07:55 Dose: 500 mg Ondansetron HCl (Zofran Odt) 4 mg PO Q6H PRN PRN Reason: Nausea/Vomiting Paroxetine HCl (Paxil) 10 mg PO HS [facility] Last Admin: 11/17/18 20:42 Dose: 10 mg Rifaximin (Xifaxan) 550 mg PO BID [facility] Last Admin: 11/18/18 07:55 Dose: 550 mg Sodium Chloride (Flush - Normal Saline) 10 ml IVF Q12HR [facility] Last Admin: 11/18/18 08:14 Dose: 10 ml Sodium Chloride (Flush - Normal Saline) 10 ml IVF PRN PRN PRN Reason: Saline Flush Spironolactone (Aldactone) 100 mg PO DAILY [facility]
[2018-11-18] MEDS: PARoxetine 20 MG TAB PO SCH (20:56)
[2018-11-18] MEDS ORDERED: Furosemide 40 MG TAB PO SCH (21:00)
[2018-11-18] MEDS ORDERED: hydrALAZINE 20 MG/ML VIAL SLOW IVP PRN (22:32)
[2018-11-18] MEDS ORDERED: hydrALAZINE 20 MG/ML VIAL SLOW IVP SCH (22:45)
[2018-11-19] MEDS: Levothyroxine Sodium 75 MCG TAB PO SCH (05:01)
[2018-11-19 06:40] LABS: ALT (SGPT) 16 U/L (8-55); AST (SGOT) 35 U/L (5-34); Albumin 3.2 g/dL (3.4-4.8); Alkaline Phosphatase 86 U/L (40-150); Anion Gap 13 mmol/L (10-20); BUN (Urea Nitrogen) 40 mg/dL (9.8-20.1); Bilirubin, Total 0.6 mg/dL (0.2-1.2); Calc. Creatinine Clearance 32 mL/min (70-130); Calcium 9.3 mg/dL (7.8-10.44); Carbon Dioxide 19 mmol/L (23-31); Chloride 111 mmol/L (98-107); Estimated GFR-MDRD 37; Globulin 4.4 g/dL (2.4-3.5); Glucose 135 mg/dL (83-110); Potassium 3.7 mmol/L (3.5-5.1); Protein, Total 7.6 g/dL (6.0-8.3); Sodium 139 mmol/L (136-145)
[2018-11-19 06:49] LABS: Eosinophils 5 % (0-10); Hemoglobin 11.3 g/dL (12.0-16.0); Lymphocytes 52 % (21-51); MDiff Complete? YES; Mean Corpuscular HGB CONC 32.3 g/dL (32.0-36.0); Mean Corpuscular Hemoglobin 28.3 pg (27.0-31.0); Mean Corpuscular Volume 87.7 fL (78.0-98.0); Mean Platelet Volume 7.8 fL (7.4-10.4); Monocytes 12 % (0-10); Neutrophil 28 % (42-75); Platelet Count 136 thou/uL (130-400); Platelet Morphology Comment Appears Adequate; RBC Distribution Width 16.3 % (11.5-14.5); Red Blood Cell (RBC) Count 3.99 mill/uL (4.20-5.40); White Blood Cell (WBC) Count 4.3 thou/uL (4.8-10.8)
[2018-11-19] MEDS: Furosemide 40 MG TAB PO SCH (07:08)
[2018-11-19] MEDS: metFORMIN 500 MG TAB PO SCH (07:08)
[2018-11-19] MEDS: Spironolactone 100 MG TAB PO SCH (09:10)
[2018-11-19] MEDS: Carvedilol 6.25 MG TAB PO SCH ×2 (09:10→20:50)
[2018-11-19] MEDS: Rifaximin 550 MG TAB PO SCH ×2 (09:10→20:50)
[2018-11-19] MEDS: Ciprofloxacin Lactate/D5W 200 MG in Premix Bag 1 BAG IVPB SCH ×2 (09:10→20:49)
[2018-11-19] MEDS: Calcium Carbonate + Vit D 1 TAB PO SCH (09:11)
[2018-11-19] MEDS: Famotidine 20 MG TAB PO SCH (09:26)
[2018-11-19] MEDS: HumaLOG 300 UNITS/3 ML VIAL SC PRN ×2 (12:04→17:23)
--- NOTE | 2018-11-19 13:52 | PDOC.PN ---
- Subjective Encounter Start Date: 11/19/18 Encounter Start Time: 13:51 Patient seen and examined, no new issues or complaints. - Objective Resuscitation Status - Order Detail: 11/17/18 15:14 Resuscitation Status Routine Resuscitation Status: FULL: Full Resuscitation Discussed with: daughter Vital Signs & Weight: Vital Signs (12 hours) Temp Pulse Resp BP Pulse Ox 11/19/18 08:00 97.8 F 66 20 150/69 H 98 11/19/18 04:00 97.7 F 63 14 137/69 96 Weight Weight 135 lb 7 oz I&O: 11/18/18 11/19/18 11/20/18 06:59 06:59 06:59 Intake Total 360 460 Balance 360 460 Result Diagrams: 11/19/18 06:08 11/19/18 06:08 Additional Labs: Accuchecks 11/19/18 11/19/18 11/18/18 11:27 05:02 21:34 POC Glucose 196 H 127 H 204 H 11/18/18 11/18/18 17:55 17:50 POC Glucose 161 H 150 H Phys Exam - Physical Examination Constitutional: NAD HEENT: PERRLA, moist MMs Neck: no nodes, no JVD Respiratory: no wheezing, no rales, no rhonchi Cardiovascular: RRR, no significant murmur, no rub Gastrointestinal: soft, non-tender, no distention Musculoskeletal: no edema, pulses present Dx/Plan (1) UTI (urinary tract infection) Status: Acute Comment: (2) Coronary artery disease Code(s): I25.10 - ATHSCL HEART DISEASE OF [place] CORONARY ARTERY W/O ANG PCTRS Status: Chronic Qualifiers: Comment: (3) Diabetes type 2, controlled Code(s): E11.9 - TYPE 2 DIABETES MELLITUS WITHOUT COMPLICATIONS Status: Chronic Qualifiers: Comment: (4) Hypertension Code(s): I10 - ESSENTIAL (PRIMARY) HYPERTENSION Status: Chronic Qualifiers: Comment: (5) Hypothyroidism Code(s): E03.9 - HYPOTHYROIDISM, UNSPECIFIED Status: Chronic Qualifiers: Comment: (6) Liver cirrhosis Code(s): K74.60 - UNSPECIFIED CIRRHOSIS OF LIVER Status: Chronic - Plan * DC metformin * labs in AM * cont current plan of care for now * on abx
[2018-11-19] MEDS: PARoxetine 20 MG TAB PO SCH (20:50)
[2018-11-20] MEDS: Levothyroxine Sodium 75 MCG TAB PO SCH (06:45)
[2018-11-20] MEDS: Furosemide 40 MG TAB PO SCH (06:46)
[2018-11-20] MEDS: Carvedilol 6.25 MG TAB PO SCH ×2 (08:15→20:59)
[2018-11-20] MEDS: Rifaximin 550 MG TAB PO SCH ×2 (08:15→20:59)
[2018-11-20] MEDS: Ciprofloxacin Lactate/D5W 200 MG in Premix Bag 1 BAG IVPB SCH ×2 (08:15→20:59)
[2018-11-20] MEDS: Spironolactone 100 MG TAB PO SCH (08:15)
[2018-11-20] MEDS: Calcium Carbonate + Vit D 1 TAB PO SCH (08:15)
[2018-11-20] MEDS: Famotidine 20 MG TAB PO SCH (08:15)
[2018-11-20] MEDS: HumaLOG 300 UNITS/3 ML VIAL SC PRN ×2 (12:33→17:46)
--- NOTE | 2018-11-20 14:31 | PDOC.PN ---
- Subjective Encounter Start Date: 11/20/18 Encounter Start Time: 14:31 Patient seen and examined, no new issues or complaints. All questions answered. - Objective Resuscitation Status - Order Detail: 11/17/18 15:14 Resuscitation Status Routine Resuscitation Status: FULL: Full Resuscitation Discussed with: daughter Vital Signs & Weight: Vital Signs (12 hours) Temp Pulse Resp BP BP BP Pulse Ox 11/20/18 11:00 97.8 F 64 18 148/71 H 98 11/20/18 08:15 125/90 11/20/18 08:00 98.0 F 72 20 125/90 98 11/20/18 06:48 153/68 H 11/20/18 04:44 67 182/68 H 11/20/18 04:00 98.2 F 68 16 182/68 H 98 Weight Weight 135 lb 7 oz I&O: 11/19/18 11/20/18 11/21/18 06:59 06:59 06:59 Intake Total 460 350 Balance 460 350 Result Diagrams: 11/19/18 06:08 11/19/18 06:08 Additional Labs: Accuchecks 11/20/18 11/20/18 11/19/18 11:57 04:34 20:41 POC Glucose 182 H 143 H 200 H 11/19/18 16:49 POC Glucose 190 H Phys Exam - Physical Examination Constitutional: NAD HEENT: PERRLA, moist MMs, sclera anicteric Neck: no nodes, no JVD, supple Respiratory: no wheezing, no rales, no rhonchi Cardiovascular: RRR, no significant murmur, no rub Gastrointestinal: soft, non-tender, no distention, positive bowel sounds Musculoskeletal: no edema, pulses present Dx/Plan (1) UTI (urinary tract infection) Status: Acute Comment: (2) Coronary artery disease Code(s): I25.10 - ATHSCL HEART DISEASE OF [place] CORONARY ARTERY W/O ANG PCTRS Status: Chronic Qualifiers: Comment: (3) Diabetes type 2, controlled Code(s): E11.9 - TYPE 2 DIABETES MELLITUS WITHOUT COMPLICATIONS Status: Chronic Qualifiers: Comment: (4) Hypertension Code(s): I10 - ESSENTIAL (PRIMARY) HYPERTENSION Status: Chronic Qualifiers: Comment: (5) Hypothyroidism Code(s): E03.9 - HYPOTHYROIDISM, UNSPECIFIED Status: Chronic Qualifiers: Comment: (6) Liver cirrhosis Code(s): K74.60 - UNSPECIFIED CIRRHOSIS OF LIVER Status: Chronic - Plan * Labs in AM * if Cr normal and afebrile over next 24 hours will DC in AM * DC with levaquin * cont current plan of care * case and plan d/w patient and family at length, they understood and agreed with this plan.
[2018-11-20] MEDS: PARoxetine 20 MG TAB PO SCH (21:03)
[2018-11-21] MEDS: Levothyroxine Sodium 75 MCG TAB PO SCH (05:58)
[2018-11-21] MEDS: HumaLOG 300 UNITS/3 ML VIAL SC PRN (05:58)
[2018-11-21 07:55] LABS: Hemoglobin 11.6 g/dL (12.0-16.0); Mean Corpuscular HGB CONC 32.7 g/dL (32.0-36.0); Mean Corpuscular Hemoglobin 28.4 pg (27.0-31.0); Mean Corpuscular Volume 86.9 fL (78.0-98.0); Mean Platelet Volume 7.8 fL (7.4-10.4); Platelet Count 155 thou/uL (130-400); RBC Distribution Width 16.1 % (11.5-14.5); Red Blood Cell (RBC) Count 4.08 mill/uL (4.20-5.40); White Blood Cell (WBC) Count 5.1 thou/uL (4.8-10.8)
[2018-11-21 08:27] LABS: Anion Gap 13 mmol/L (10-20); BUN (Urea Nitrogen) 50 mg/dL (9.8-20.1); Calc. Creatinine Clearance 24 mL/min (70-130); Calcium 9.5 mg/dL (7.8-10.44); Carbon Dioxide 21 mmol/L (23-31); Chloride 105 mmol/L (98-107); Estimated GFR-MDRD 26; Glucose 122 mg/dL (83-110); Potassium 4.1 mmol/L (3.5-5.1); Sodium 135 mmol/L (136-145)
[2018-11-21] MEDS: Furosemide 40 MG TAB PO SCH (09:59)
[2018-11-21] MEDS: Carvedilol 6.25 MG TAB PO SCH (09:59)
[2018-11-21] MEDS: Calcium Carbonate + Vit D 1 TAB PO SCH (09:59)
[2018-11-21] MEDS: Ciprofloxacin Lactate/D5W 200 MG in Premix Bag 1 BAG IVPB SCH (09:59)
[2018-11-21] MEDS: Rifaximin 550 MG TAB PO SCH (09:59)
[2018-11-21] MEDS: Famotidine 20 MG TAB PO SCH (09:59)
[2018-11-21] MEDS: Spironolactone 100 MG TAB PO SCH (09:59)
[2018-11-21 10:01] LABS: Anisocytosis SLIGHT = 6-15 cells (100X) (0-5/hpf); Eosinophils 4 % (0-10); Lymphocytes 37 % (21-51); MDiff Complete? YES; Microcytosis SLIGHT = 6-15 cells (100X) (0-5/hpf); Monocytes 18 % (0-10); Neutrophil 40 % (42-75); Platelet Morphology Comment Appears Adequate
[2018-11-21 12:21] VITALS: TEMP 97.9
--- NOTE | 2018-11-21 13:36 | PDOC.EVN ---
Event Note - Event Note Event Note: DC SUMMARY #[id number]
--- NOTE | 2018-11-21 14:06 | DIS ---
DATE OF ADMISSION: 11/17/2018 DATE OF DISCHARGE: 11/21/2018 ADMITTING DIAGNOSES: 1. Urinary tract infection. 2. Weakness. 3. Lethargy. 4. Diabetes mellitus, type 2. 5. Chronic kidney disease, stage 3. 6. Cirrhosis. 7. Hypothyroidism. DISCHARGE DIAGNOSES: 1. Urinary tract infection secondary to Escherichia coli. 2. Weakness, resolved. 3. Cirrhosis, stable. 4. Chronic kidney disease, stage 3, stable. 5. Diabetes mellitus, type 2, stable. 6. Hypothyroidism, stable. HOSPITAL COURSE: This is a 78-year-old female admitted to the hospital complaining of weakness, found to have UTI. The patient was admitted to Internal Medicine Team, started on antibiotics, had a urinalysis done. Urine culture showed E coli, pansensitive to Levaquin. The patient was continued on Levaquin at the time of discharge, had received 2 doses here in the hospital and was continued given course for 5 more days to complete a 7-day length of therapy. Sugars were normal. Symptoms were resolved. Denied any nausea, vomiting, diarrhea, constipation, chest pain, fevers, chills or shortness of breath at the point in time of discharge. The patient's condition was stable as well. No complaints. at bedside. Case and plan discussed with the patient and at length. They understood and agreed with this plan. DISPOSITION: Home. FOLLOWUP: Follow up with PCP within 1 week, GI doctor within 1 week. CONDITION: Stable. PROGNOSIS: Good. DISCHARGE MEDICATIONS: See MAR. ACTIVITY: As tolerated with assistance as needed. DIET: Low-fat, low-calorie, high-fiber, low-salt diet. Case and plan once again discussed with the patient and family at length. They understood and agreed with this plan. Job ID: [id number]
[2018-11-21 16:53] VITALS: BP 149/65
== END 2018-11-21 16:31 | disposition home or self-care (01) | DRG 690 ==
LOC: ERS 13:18 → T4-B 15:00
PROVIDERS: ADMIT Internal Medicine; ATTEND Internal Medicine
DX: N39.0 Urinary tract infection, site not specified (principal); E72.20 Disorder of urea cycle metabolism, unspecified; I13.0 Hypertensive heart and chronic kidney disease with heart failure and stage 1 through stage 4 chronic kidney disease, or unspecified chronic kidney disease; K76.6 Portal hypertension; K74.60 Unspecified cirrhosis of liver; I25.10 Atherosclerotic heart disease of native coronary artery without angina pectoris; E11.22 Type 2 diabetes mellitus with diabetic chronic kidney disease; N18.3 Chronic kidney disease, stage 3 (moderate); E03.9 Hypothyroidism, unspecified; D64.9 Anemia, unspecified; B96.20 Unspecified Escherichia coli [E. coli] as the cause of diseases classified elsewhere; L40.9 Psoriasis, unspecified; I35.0 Nonrheumatic aortic (valve) stenosis; I50.9 Heart failure, unspecified; F32.9 Major depressive disorder, single episode, unspecified; K72.90 Hepatic failure, unspecified without coma; Z95.1 Presence of aortocoronary bypass graft; Z87.440 Personal history of urinary (tract) infections; Z90.710 Acquired absence of both cervix and uterus; Z79.82 Long term (current) use of aspirin; Z79.84 Long term (current) use of oral hypoglycemic drugs; Z88.5 Allergy status to narcotic agent; Z88.8 Allergy status to other drugs, medicaments and biological substances; Z88.1 Allergy status to other antibiotic agents
CPT/HCPCS: 36415; 36416; 51701; 80048; 80053; 81003; 81015; 82140; 84484; 85025; 87040; 87077; 87086; 87186; 93005; 96365; J0360; J0744

== ENCOUNTER 2018-12-06 19:12 | Inpatient (IN) | payer MEDICARE ==
--- NOTE | 2018-12-06 19:55 | RAD ---
PORTABLE CHEST: 12/06/18 HISTORY: Dizziness, syncope, confusion. COMPARISON: 09/20/18 study. The heart size is enlarged. There are postop sternotomy changes. The lungs are clear of infiltrates. No signs of failure. IMPRESSION: Cardiomegaly. Stable chest. POS: [facility]
[2018-12-06 20:05] LABS: #Eosinphils 0.3 thou/uL (0.0-0.7); #Lymphocytes 1.4 thou/uL (1.20-3.40); #Monocytes 0.5 thou/uL (0.11-0.59); #Neutrophils 2.6 thou/uL (1.40-6.50); %Eosinophils 5.5 % (0.0-10.0); %Lymphocytes 29.6 % (21.0-51.0); %Monocytes 9.8 % (0.0-10.0); %Neutrophils 54.1 % (42.0-75.0); Hemoglobin 13.4 g/dL (12.0-16.0); Mean Corpuscular HGB CONC 34.3 g/dL (32.0-36.0); Mean Corpuscular Hemoglobin 29.3 pg (27.0-31.0); Mean Corpuscular Volume 85.5 fL (78.0-98.0); Platelet Count 108 thou/uL (130-400); RBC Distribution Width 16.4 % (11.5-14.5); Red Blood Cell (RBC) Count 4.58 mill/uL (4.20-5.40); White Blood Cell (WBC) Count 4.8 thou/uL (4.8-10.8)
[2018-12-06 20:12] LABS: Platelet Morphology Comment Appears Decreased; RBC Morphology Normal
[2018-12-06 20:49] LABS: ALT (SGPT) 87 U/L (8-55); AST (SGOT) 102 U/L (5-34); Albumin 3.8 g/dL (3.4-4.8); Alkaline Phosphatase 100 U/L (40-150); Anion Gap 17 mmol/L (10-20); BUN (Urea Nitrogen) 83 mg/dL (9.8-20.1); Bilirubin, Total 0.5 mg/dL (0.2-1.2); Calc. Creatinine Clearance 0 mL/min (70-130); Calcium 9.7 mg/dL (7.8-10.44); Carbon Dioxide 20 mmol/L (23-31); Chloride 105 mmol/L (98-107); Estimated GFR-MDRD 27; Globulin 4.9 g/dL (2.4-3.5); Glucose 182 mg/dL (83-110); Protein, Total 8.7 g/dL (6.0-8.3); Sodium 136 mmol/L (136-145)
[2018-12-06] MEDS ORDERED: Nitroglycerin 2% Ointment 1 INCH/1 GM Packet ONE (21:00)
[2018-12-06] MEDS ORDERED: Insulin Regular 300 UNITS/3 ML VIAL ONE (21:07)
[2018-12-06] MEDS ORDERED: Calcium Chloride 1 GM/10 ML Abboject SYRINGE ONE (21:11)
[2018-12-06] MEDS ORDERED: Sodium Bicarb 50 MEQ/50 ML VIAL ONE (21:13)
--- NOTE | 2018-12-06 21:25 | CT ---
CT OF BRAIN PERFORMED WITHOUT CONTRAST ENHANCEMENT: 12/06/18 HISTORY: Altered mental status. COMPARISON: 09/21/18 study. There is some mild ventricular and sulcal prominence, fairly age appropriate. Decreased attenuation o f the periventricular white matter is consistent with some chronic white matter change. No signs of intracerebral hemorrhage or extra-axial fluid collections. The mastoid air cells and visualized sinus es are clear. IMPRESSION: No acute intracranial abnormalities. POS: [facility]
[2018-12-06] MEDS ORDERED: Ondansetron PF 4 MG/2 ML Vial ONE (21:35)
[2018-12-06 22:25] LABS: PTT 27.5 SEC (22.9-36.1); Prothrombin Time 13.7 SEC (12.0-14.7)
[2018-12-06] MEDS ORDERED: Sodium Chloride 0.9% 1,000 ML IV SCH ×2 (22:30→22:57)
[2018-12-06] MEDS ORDERED: Dextrose 5% in Water 1,000 ML IV PRN (22:34)
[2018-12-06] MEDS ORDERED: Dextrose 50% Abboject 50 ML SYRINGE SLOW IVP PRN (22:34)
[2018-12-06 22:48] LABS: Bilirubin Negative (Negative); Blood, Urine Trace (Negative); Clarity CLOUDY (Clear); Glucose, Urine (Dipstick) 250 mg/dL (Negative); Leukocyte Large (Negative); Nitrite Positive (Negative); Protein, Urine (Dipstick) Trace mg/dL (Neg-Trace); Specific Gravity, Urine 1.012 (1.002-1.036); Urobilinogen 0.2 mg/dL (0.2-1.0)
[2018-12-06 22:49] LABS: Bacteria/HPF 1+ HPF (None Seen); Squamous Epithelial None Seen HPF (0-3)
[2018-12-06 22:50] LABS: Pathc Cast-AUWi Flag 2.99 (0-2.49)
[2018-12-06] MEDS ORDERED: Acetaminophen 325 MG TAB PO PRN (22:57)
[2018-12-06] MEDS ORDERED: Ondansetron ODT 4 MG TAB SL PRN (22:57)
[2018-12-06] MEDS ORDERED: Ondansetron PF 4 MG/2 ML Vial IVP PRN (22:57)
[2018-12-06 23:04] LABS: Hyaline Casts/LPF 0-3 HYALINE CAST LPF (0-3 Hyaline); Renal Epithelial 0-3 HPF (0-3)
[2018-12-06 23:52] LABS: Anion Gap 15 mmol/L (10-20); BUN (Urea Nitrogen) 73 mg/dL (9.8-20.1); Calc. Creatinine Clearance 27 mL/min (70-130); Calcium 10.4 mg/dL (7.8-10.44); Carbon Dioxide 19 mmol/L (23-31); Chloride 108 mmol/L (98-107); Estimated GFR-MDRD 32; Glucose 124 mg/dL (83-110); Potassium 4.5 mmol/L (3.5-5.1); Sodium 137 mmol/L (136-145)
[2018-12-06 23:59] LABS: Troponin I 0.021 ng/mL (< 0.028)
--- NOTE | 2018-12-07 02:44 | HP ---
CHIEF COMPLAINT: Change in mental status. HISTORY OF PRESENT ILLNESS: The patient is a 78-year-old female with past medical history of, hepatic encephalopathy of unknown etiology, diabetes, hypertension, chronic kidney disease, coronary artery disease, who presents to the hospital with worsening mentation. Per patient's daughter who is at the bedside states that she has not been herself for the past couple days and noticed increasing generalized weakness and also some confusion. At this time, the patient was brought into the hospital for further evaluation. The patient's daughter states that she has been eating and drinking well. However, today she was so weak that she could not even stand up. Upon reviewing her records, it was noted that the patient has had a history of hyperammonia of unclear etiology. She has undergone a liver biopsy which did not indicate any hepatitis. The patient presents today again with worsening mentation with high ammonia level and was found to have urinary tract infection. PAST MEDICAL HISTORY: She has had, 1. History of hepatic encephalopathy. 2. Diabetes. 3. Hypertension. 4. Chronic kidney disease. 5. Psoriasis. 6. CAD. PAST SURGICAL HISTORY: She has had, 1. Coronary artery bypass. 2. Hysterectomy. 3. Ankle surgery. 4. Cardiac ablation. 5. Liver biopsy. FAMILY HISTORY: Negative history for GI or heart attacks. SOCIAL HISTORY: She denies any alcohol use, tobacco use, smoking history. She is a full code. Lives with her family. ALLERGIES: SHE IS ALLERGIC TO HYDROCODONE AND NAPROXEN. MEDICATIONS: As of the following, she is on; 1. Aspirin 81 mg daily. 2. Lasix 40 mg b.i.d. 3. Famotidine 40 mg daily. 4. Rifaximin 550 mg b.i.d. 5. Spironolactone 100 mg daily. 6. Levothyroxine 75 mcg daily. 7. Paroxetine 10 mg daily. REVIEW OF SYSTEMS: Unable to obtain. PHYSICAL EXAMINATION: VITAL SIGNS: Temperature of 97.8, heart rate 72, respirations 16, oxygen saturation 98% on room air, blood pressure 143/67. GENERAL: She is awake, oriented to self, follows commands. HEENT: Normocephalic, atraumatic. No lymphadenopathy noted. Pupils are equal and reactive to light. CV: S1 and S2 present. No murmurs, rubs, or gallops. LUNGS: Clear to auscultation. No rhonchi or wheezes noted. ABDOMEN: Soft. Bowel sounds are present x2. No pain upon palpation. EXTREMITIES: No edema. Pedal pulses are present x2. NEUROVASCULAR: No focal deficits noted. SKIN: No cuts, lesions, or bruises noted. LABORATORY RESULTS: As of the following; WBCs of 4.8, hemoglobin of 13.4, hematocrit of 39.2, platelets of 108. Chemistry; sodium of 137; potassium 4.5, initially was 6.0, and repeat was 4.5; BUN of 83; creatinine of 1.84. Her AST was 102, ALT was 87. The patient did have urine which was positive for UTI. ASSESSMENT AND PLAN: The patient is a very pleasant 78-year-old female who presents to the hospital with altered mental status. 1. Acute metabolic encephalopathy, most likely secondary to urinary tract infection. We will start the patient on Levaquin as she is getting frequent urinary tract infections. 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 The patient may recommend seeing a urologist as an outpatient given the patient has been having multiple urinary tract infections. We will start the patient on some gentle hydration. 2. Hyperammonia, again unclear etiology. We will continue rifaximin and also the lactulose. She needs to follow up with GI as an outpatient. 3. Hyperkalemia. The patient was given calcium gluconate and insulin and D50 and her potassium has improved. 4. Acute kidney injury on chronic kidney disease. Again, I will continue with the hydration and hoping that this would improve her renal function. 5. Deep venous thrombosis prophylaxis. We will put the patient on sequential compression devices. Her platelets are very low. We will put sequential compression devices for now. Job ID: [id number]
[2018-12-07 03:20] LABS: Troponin I 0.025 ng/mL (< 0.028)
[2018-12-07] MEDS: Levothyroxine Sodium 75 MCG TAB PO SCH ×2 (05:55→05:59)
[2018-12-07 06:08] LABS: #Basophils 0.1 thou/uL (0.0-0.2); #Eosinphils 0.2 thou/uL (0.0-0.7); #Lymphocytes 1.2 thou/uL (1.20-3.40); #Monocytes 0.5 thou/uL (0.11-0.59); #Neutrophils 3.4 thou/uL (1.40-6.50); %Eosinophils 3.5 % (0.0-10.0); %Lymphocytes 21.7 % (21.0-51.0); %Monocytes 9.8 % (0.0-10.0); Hemoglobin 12.4 g/dL (12.0-16.0); Mean Corpuscular HGB CONC 31.5 g/dL (32.0-36.0); Mean Corpuscular Hemoglobin 27.1 pg (27.0-31.0); Mean Platelet Volume 9.3 fL (7.4-10.4); Platelet Count 109 thou/uL (130-400); RBC Distribution Width 16.1 % (11.5-14.5); Red Blood Cell (RBC) Count 4.57 mill/uL (4.20-5.40); White Blood Cell (WBC) Count 5.4 thou/uL (4.8-10.8)
[2018-12-07 06:27] LABS: ALT (SGPT) 87 U/L (8-55); AST (SGOT) 108 U/L (5-34); Albumin 3.4 g/dL (3.4-4.8); Alkaline Phosphatase 99 U/L (40-150); Anion Gap 13 mmol/L (10-20); BUN (Urea Nitrogen) 67 mg/dL (9.8-20.1); Bilirubin, Total 0.7 mg/dL (0.2-1.2); Calc. Creatinine Clearance 30 mL/min (70-130); Calcium 10.4 mg/dL (7.8-10.44); Carbon Dioxide 18 mmol/L (23-31); Chloride 111 mmol/L (98-107); Estimated GFR-MDRD 33; Globulin 4.5 g/dL (2.4-3.5); Glucose 111 mg/dL (83-110); Potassium 5.4 mmol/L (3.5-5.1); Protein, Total 7.9 g/dL (6.0-8.3); Sodium 137 mmol/L (136-145)
[2018-12-07] MEDS: Rifaximin 550 MG TAB PO SCH ×2 (09:07→21:06)
[2018-12-07] MEDS: Carvedilol 6.25 MG TAB PO SCH ×2 (09:07→21:06)
[2018-12-07] MEDS: Famotidine/PF 20 mg/2ml Vial SLOW IVP SCH (09:08)
[2018-12-07] MEDS: Aspirin 81 mg Enteric Coated Tablet PO SCH (09:10)
[2018-12-07] MEDS: Sodium Chloride 0.45% 1,000 ML IV SCH ×2 (09:18→22:51)
--- NOTE | 2018-12-07 14:35 | PDOC.PN ---
- Subjective Encounter Start Date: 12/07/18 Encounter Start Time: 08:00 Pt seen for followup re: acute metabolic encephalopathy. Pt unable to answer questions, could not complete ROS. - Objective Resuscitation Status - Order Detail: 12/06/18 22:17 Resuscitation Status Routine Resuscitation Status: FULL: Full Resuscitation MAR Reviewed: Yes Vital Signs & Weight: Vital Signs (12 hours) Temp Pulse Resp BP Pulse Ox 12/07/18 12:56 98.9 F 56 L 18 152/66 H 98 12/07/18 07:50 97.5 F L 62 18 159/66 H 97 12/07/18 04:00 97.2 F L 60 16 151/74 H 99 Weight Admit Weight 130 lb Weight 136 lb 3.2 oz I&O: 12/06/18 12/07/18 12/08/18 06:59 06:59 06:59 Intake Total 336 Balance 336 Result Diagrams: 12/07/18 05:44 12/07/18 05:44 Additional Labs: Accuchecks 12/07/18 12/07/18 12/06/18 10:36 05:23 22:37 POC Glucose 120 H 114 H 199 H EKG Reviewed by me: Yes (Tele: NSR) Phys Exam - Physical Examination Constitutional: NAD HEENT: moist MMs Neck: supple Respiratory: clear to auscultation bilateral Cardiovascular: RRR Gastrointestinal: soft Neurological: moves all 4 limbs Psychiatric: normal affect Dx/Plan (1) Acute metabolic encephalopathy Code(s): G93.41 - METABOLIC ENCEPHALOPATHY Status: Acute Comment: secondary to UTI+/- hepatic encephalopathy. Continue lactulose, rifaxmin and levofloxacin. (2) UTI (urinary tract infection) Status: Acute Comment: continue levofloxacin, await cultures. (3) Diabetes type 2, controlled Code(s): E11.9 - TYPE 2 DIABETES MELLITUS WITHOUT COMPLICATIONS Status: Chronic Qualifiers: Comment: controlled (4) Hypertension Code(s): I10 - ESSENTIAL (PRIMARY) HYPERTENSION Status: Chronic Qualifiers: Comment: monitor vital signs, titrate antihypertensives as needed (5) Hypothyroidism Code(s): E03.9 - HYPOTHYROIDISM, UNSPECIFIED Status: Chronic Qualifiers: Comment: continue synthroid - Plan * . Review of Systems - Review of Systems Respiratory: negative: Cough, Shortness of Breath, SOB with Excertion, Pleuritic Pain, Wheezing Cardiovascular: negative: chest pain, palpitations, orthopnea, paroxysmal nocturnal dyspnea, edema, light headedness - Medications/Allergies Allergies/Adverse Reactions: Allergies Allergy/AdvReac Type Severity Reaction Status Date / Time naproxen sodium [From Aleve] Allergy Mild Verified 12/06/18 23:06 ceftriaxone [From Rocephin] Allergy Unknown Verified 12/06/18 23:06 hydrocodone Allergy Verified 12/06/18 23:06 Medications: Current Medications Aspirin (Ecotrin) 81 mg PO DAILY [facility] Last Admin: 12/07/18 09:10 Dose: 81 mg Carvedilol (Coreg) 6.25 mg PO BID [facility] Last Admin: 12/07/18 09:07 Dose: 6.25 mg Dextrose/Water (Dextrose 50%) 25 gm SLOW IVP PRN PRN PRN Reason: Hypoglycemia Famotidine (Pepcid) 20 mg SLOW IVP QAM [facility] Last Admin: 12/07/18 09:08 Dose: 20 mg Glucagon (Glucagon) 1 mg IM PRN PRN PRN Reason: Hypoglycemia Levofloxacin 500 mg/ Device 100 mls @ 100 mls/hr IVPB Q24HR [facility] Last Admin: 12/06/18 23:35 Dose: 100 mls Dextrose/Water (D5w) 1,000 mls @ 0 mls/hr IV .Q0M PRN PRN Reason: Hypoglycemia Sodium Chloride (1/2 Normal Saline) 1,000 mls @ 75 mls/hr IV .[id number] [facility] Last Admin: 12/07/18 09:18 Dose: 1,000 mls Insulin Human Lispro (Humalog) 0 units SC .MILD SLIDING SCALE PRN PRN Reason: Mild Correctional Scale Lactulose (Lactulose) 30 gm PO QID [facility] Last Admin: 12/07/18 13:02 Dose: 30 gm Levothyroxine Sodium (Synthroid) 75 mcg PO 0600 [facility] Last Admin: 12/07/18 05:59 Dose: Not Given Paroxetine HCl (Paxil) 10 mg PO HS [facility] Rifaximin (Xifaxan) 550 mg PO BID [facility] Last Admin: 12/07/18 09:07 Dose: 550 mg Sodium Chloride (Flush - Normal Saline) 10 ml IVF PRN PRN PRN Reason: Saline Flush
[2018-12-07] MEDS: hydrALAZINE 20 MG/ML VIAL SLOW IVP PRN (17:23)
[2018-12-07] MEDS: PARoxetine 20 MG TAB PO SCH (21:06)
--- NOTE | 2018-12-07 22:38 | CON ---
DATE OF CONSULTATION: 12/07/2018 REASON FOR CONSULTATION: Hepatic encephalopathy. HISTORY OF PRESENT ILLNESS: Ms. Sowmya Sung is a 78-year-old woman followed by my GI colleague, Dr. Henri Escobedo. She has had multiple presentations over the past year with metabolic encephalopathy and hyperammonemia. She has been treated for hepatic encephalopathy. She takes rifaximin and lactulose as an outpatient, though it is not clear how good her compliance is with this. Dr. Escobedo has worked her liver up extensively with extensive lab workup as well as liver biopsy. Liver biopsy was performed in July 2018 and actually demonstrated no fibrosis and only mild nonspecific portal inflammation. She has since had imaging, which has been suggestive of a portosystemic shunt, specifically a splenocaval shunt. This is thought to be the reason for her intermittent episodes of overt encephalopathy despite only minimal evidence of intrinsic liver disease and no evidence of liver fibrosis. At any rate, the patient was admitted to the hospital yesterday after several days of worsening confusion and altered mental status. Upon presentation, she was found to have urinary tract infection. Urine culture is still pending, but she had greater than 50 WBCs in the urine. She is now being treated with antibiotics. Rifaximin is being continued and lactulose is being given 15 g 4 times daily. In speaking with the nursing staff and with the patient, evidently there has been some improvement in mental status so far today. She is able to speak with me and answer questions, though she is quite tangential and not completely oriented. She denies any pain anywhere. She is having good bowel movements with all the lactulose. REVIEW OF SYSTEMS: Unable to obtain full review of systems at this time due to the patient's mental status. PAST MEDICAL HISTORY: Coronary artery bypass graft, hysterectomy, ankle surgery, cardiac ablation, liver biopsy July 2018, recurrent episodes of hyperammonemic encephalopathy, diabetes type 2, hypertension, chronic kidney disease, psoriasis, coronary artery disease, splenocaval shunt, spontaneous. FAMILY HISTORY: Negative for GI malignancy. SOCIAL HISTORY: No tobacco, alcohol, or drugs. ALLERGIES: HYDROCODONE AND NAPROXEN. OUTPATIENT MEDICATIONS: 1. Rifaximin 550 mg twice daily. 2. Aspirin 81 mg daily. 3. Lasix 40 mg b.i.d. 4. Famotidine 40 mg daily. 5. Spironolactone 100 mg daily. 6. Levothyroxine 75 mcg daily. 7. Paroxetine 10 mg daily. 8. Lactulose is not on her outpatient med list. PHYSICAL EXAMINATION: VITAL SIGNS: Temperature 98.6, pulse 57, blood pressure 188/80, 98% oxygen saturation on room air. GENERAL: A 78-year-old woman appearing chronically ill, but nontoxic, lying in bed comfortably, in no distress. MENTAL: She is alert at this time. She is oriented to person. She is unable to give me today's date. With some redirection, she is able to give me her date of . She is able to answer directed questions appropriately. EYES: No scleral icterus. Extraocular movements intact. ENT: Mucous membranes moist. No oral lesions. LYMPHATIC: No submandibular or supraclavicular lymphadenopathy. ENDOCRINE: Thyroid, nontender to palpation. HEART: Regular rate and rhythm. LUNGS: Clear to auscultation bilaterally. ABDOMEN: Bowel sounds present. Soft, nontender to palpation throughout. EXTREMITIES: No peripheral edema. VESSELS: Radial pulses 2+ bilaterally. NEUROLOGIC: Cranial nerves 2-12 intact bilaterally. No focal deficits. LABORATORY STUDIES: Ammonia was elevated to 129. WBC 5.4, hemoglobin 12.4, platelets 109. INR 1.0. Sodium 137, potassium 5.4, BUN 67, creatinine 1.53, total bilirubin 0.7, alkaline phosphatase 99, AST 108, ALT 87, albumin 3.4, TSH 1.31. Troponin 0.025. Lactic acid only 1.2. Urinalysis shows greater than 50 WBCs, positive for leukocyte esterase and nitrites. Blood culture shows no growth to date. Urine culture is pending. IMAGING STUDIES: 1. Brain CT shows no acute processes. 2. Chest x-ray shows cardiomegaly and clear lung reyes. ASSESSMENT/PLAN: 1. Hepatic encephalopathy, recurrent. 2. 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 3. Urinary tract infection, likely precipitant of this episode of hepatic encephalopathy. Based on nursing staff reports, the patient has had some improvement of mental status over the course of today with the lactulose. She is having good bowel movements. Expect continued improvement with continued treatment of the urinary tract infection. We would continue the lactulose as well as the rifaximin for now. Dr. Escobedo's impression has been that the patient's recurrent episodes of encephalopathy are likely primarily secondary to her portosystemic shunt. She will need to continue on rifaximin and maybe also on the lactulose as well following hospital discharge. No further recommendations from a GI perspective at this time. Please call anytime with questions or concerns. Job ID: [id number]
[2018-12-08] MEDS: Levothyroxine Sodium 75 MCG TAB PO SCH (05:43)
[2018-12-08] MEDS: Carvedilol 6.25 MG TAB PO SCH ×2 (08:09→20:21)
[2018-12-08] MEDS: Aspirin 81 mg Enteric Coated Tablet PO SCH (08:09)
[2018-12-08] MEDS: Famotidine/PF 20 mg/2ml Vial SLOW IVP SCH (08:09)
[2018-12-08] MEDS: Rifaximin 550 MG TAB PO SCH ×2 (08:10→20:21)
[2018-12-08 09:11] LABS: #Eosinphils 0.3 thou/uL (0.0-0.7); #Lymphocytes 1.6 thou/uL (1.20-3.40); #Monocytes 0.8 thou/uL (0.11-0.59); #Neutrophils 3.5 thou/uL (1.40-6.50); %Basophils 0.6 % (0.0-1.0); %Eosinophils 5.2 % (0.0-10.0); %Lymphocytes 25.7 % (21.0-51.0); %Monocytes 12.4 % (0.0-10.0); %Neutrophils 56.1 % (42.0-75.0); Hemoglobin 12.2 g/dL (12.0-16.0); Mean Corpuscular HGB CONC 32.3 g/dL (32.0-36.0); Mean Corpuscular Hemoglobin 28.4 pg (27.0-31.0); Mean Corpuscular Volume 87.9 fL (78.0-98.0); Mean Platelet Volume 8.6 fL (7.4-10.4); Platelet Count 96 thou/uL (130-400); RBC Distribution Width 16.2 % (11.5-14.5); Red Blood Cell (RBC) Count 4.28 mill/uL (4.20-5.40); White Blood Cell (WBC) Count 6.2 thou/uL (4.8-10.8)
[2018-12-08 09:27] LABS: Anion Gap 11 mmol/L (10-20); BUN (Urea Nitrogen) 44 mg/dL (9.8-20.1); Calc. Creatinine Clearance 27 mL/min (70-130); Carbon Dioxide 20 mmol/L (23-31); Chloride 109 mmol/L (98-107); Estimated GFR-MDRD 29; Glucose 200 mg/dL (83-110); Potassium 4.2 mmol/L (3.5-5.1); Sodium 136 mmol/L (136-145)
[2018-12-08] MEDS: Sodium Chloride 0.45% 1,000 ML IV SCH (11:32)
[2018-12-08] MEDS: hydrALAZINE 20 MG/ML VIAL SLOW IVP PRN (11:32)
--- NOTE | 2018-12-08 14:37 | PDOC.PN ---
- Subjective Encounter Start Date: 12/08/18 Encounter Start Time: 07:00 Pt seen for followup re: acute metabolic encephalopathy. More alert today. Denies any complaints. - Objective Resuscitation Status - Order Detail: 12/06/18 22:17 Resuscitation Status Routine Resuscitation Status: FULL: Full Resuscitation MAR Reviewed: Yes Vital Signs & Weight: Vital Signs (12 hours) Temp Pulse Resp BP Pulse Ox 12/08/18 11:27 98.4 F 65 20 173/72 H 100 12/08/18 08:08 73 157/67 H 12/08/18 07:20 98.4 F 65 16 187/78 H 98 12/08/18 04:00 98.1 F 70 16 159/67 H 96 Weight Admit Weight 130 lb Weight 139 lb 4.8 oz I&O: 12/07/18 12/08/18 12/09/18 06:59 06:59 06:59 Intake Total 336 2700 Balance 336 2700 Result Diagrams: 12/08/18 08:51 12/08/18 08:51 Additional Labs: Accuchecks 12/08/18 12/08/18 12/07/18 10:46 05:32 20:08 POC Glucose 195 H 83 237 H 12/07/18 16:48 POC Glucose 133 H EKG Reviewed by me: Yes (Tele: NSR) Phys Exam - Physical Examination Constitutional: NAD HEENT: moist MMs, sclera anicteric, oral pharynx no lesions, 2+ tonsils Respiratory: clear to auscultation bilateral Cardiovascular: RRR, no rub S1, S2 Gastrointestinal: soft, non-tender, no distention, positive bowel sounds Musculoskeletal: edema present Neurological: moves all 4 limbs Psychiatric: normal affect Deviation from normal: Oriented to person and place, not to time Dx/Plan (1) Acute metabolic encephalopathy Code(s): G93.41 - METABOLIC ENCEPHALOPATHY Status: Acute Comment: Improving , continue lactulose, rifaxmin and levofloxacin. (2) UTI (urinary tract infection) Status: Acute Comment: continue levofloxacin, add vancomycin (urine culture growing staphylococcus). (3) Diabetes type 2, controlled Code(s): E11.9 - TYPE 2 DIABETES MELLITUS WITHOUT COMPLICATIONS Status: Chronic Qualifiers: Comment: controlled (4) Hypertension Code(s): I10 - ESSENTIAL (PRIMARY) HYPERTENSION Status: Chronic Qualifiers: Comment: BP elevated, add hydralazine (5) Hypothyroidism Code(s): E03.9 - HYPOTHYROIDISM, UNSPECIFIED Status: Chronic Qualifiers: Comment: continue synthroid (6) Hepatic encephalopathy Code(s): K72.90 - HEPATIC FAILURE, UNSPECIFIED WITHOUT COMA Status: Resolved Comment: present on admission, ammonia level is normal today - Plan continue antibiotics, PT/OT, out of bed/ambulate * . Review of Systems - Review of Systems Constitutional: negative: fever, chills, sweats, weakness, malaise Respiratory: negative: Cough, Shortness of Breath, SOB with Excertion, Pleuritic Pain, Wheezing Cardiovascular: negative: chest pain, palpitations, orthopnea, paroxysmal nocturnal dyspnea, edema, light headedness Gastrointestinal: negative: Nausea, Vomiting, Abdominal Pain, Diarrhea, Constipation, Melena, Hematochezia Genitourinary: negative: Dysuria, Frequency, Incontinence, Hematuria, Retention Skin: negative: Rash, Lesions, [place], Bruising - Medications/Allergies Allergies/Adverse Reactions: Allergies Allergy/AdvReac Type Severity Reaction Status Date / Time naproxen sodium [From Aleve] Allergy Mild Verified 12/06/18 23:06 ceftriaxone [From Rocephin] Allergy Unknown Verified 12/06/18 23:06 hydrocodone Allergy Verified 12/06/18 23:06 Medications: Current Medications Aspirin (Ecotrin) 81 mg PO DAILY [facility] Last Admin: 12/08/18 08:09 Dose: 81 mg Carvedilol (Coreg) 6.25 mg PO BID [facility] Last Admin: 12/08/18 08:09 Dose: 6.25 mg Dextrose/Water (Dextrose 50%) 25 gm SLOW IVP PRN PRN PRN Reason: Hypoglycemia Famotidine (Pepcid) 20 mg SLOW IVP QAM [facility] Last Admin: 12/08/18 08:09 Dose: 20 mg Glucagon (Glucagon) 1 mg IM PRN PRN PRN Reason: Hypoglycemia Hydralazine HCl (Apresoline) 10 mg SLOW IVP Q6H PRN PRN Reason: SBP Greater Than 170 Last Admin: 12/08/18 11:32 Dose: 10 mg Levofloxacin 500 mg/ Device 100 mls @ 100 mls/hr IVPB Q24HR [facility] Last Admin: 12/07/18 22:48 Dose: 100 mls Dextrose/Water (D5w) 1,000 mls @ 0 mls/hr IV .Q0M PRN PRN Reason: Hypoglycemia Sodium Chloride (1/2 Normal Saline) 1,000 mls @ 75 mls/hr IV .[id number] [facility] Last Admin: 12/08/18 11:32 Dose: 1,000 mls Insulin Human Lispro (Humalog) 0 units SC .MILD SLIDING SCALE PRN PRN Reason: Mild Correctional Scale Lactulose (Lactulose) 15 gm PO QID [facility] Last Admin: 12/08/18 13:27 Dose: 15 gm Levothyroxine Sodium (Synthroid) 75 mcg PO 0600 [facility] Last Admin: 12/08/18 05:43 Dose: 75 mcg Paroxetine HCl (Paxil) 10 mg PO HS [facility] Last Admin: 12/07/18 21:06 Dose: 10 mg Rifaximin (Xifaxan) 550 mg PO BID [facility] Last Admin: 12/08/18 08:10 Dose: 550 mg Sodium Chloride (Flush - Normal Saline) 10 ml IVF PRN PRN PRN Reason: Saline Flush
[2018-12-08] MEDS ORDERED: Vancomycin HCl 1 GM in Premix Bag 1 BAG IVPB SCH (14:45)
[2018-12-08] MEDS: hydrALAZINE 25 MG TAB PO SCH ×2 (15:36→20:21)
[2018-12-08] MEDS: Vancomycin HCl 750 MG in Sodium Chloride 0.9% 250 ML 250 ML IVPB SCH (16:16)
[2018-12-08] MEDS: HumaLOG 300 UNITS/3 ML VIAL SC PRN (17:41)
[2018-12-08] MEDS: PARoxetine 20 MG TAB PO SCH (20:21)
[2018-12-08] MEDS ORDERED: Levofloxacin 500 mg/D5W 100 ml Premix Bag ONE (23:15)
[2018-12-09] MEDS ORDERED: Levothyroxine Sodium 75 MCG TAB ONE (05:08)
[2018-12-09] MEDS: Levothyroxine Sodium 75 MCG TAB PO SCH (08:50)
[2018-12-09] MEDS: Rifaximin 550 MG TAB PO SCH ×2 (09:16→20:51)
[2018-12-09] MEDS: hydrALAZINE 25 MG TAB PO SCH ×3 (09:16→21:59)
[2018-12-09] MEDS: Famotidine/PF 20 mg/2ml Vial SLOW IVP SCH (09:16)
[2018-12-09] MEDS: Aspirin 81 mg Enteric Coated Tablet PO SCH (09:16)
[2018-12-09] MEDS: Carvedilol 6.25 MG TAB PO SCH ×2 (09:17→20:52)
[2018-12-09] MEDS: HumaLOG 300 UNITS/3 ML VIAL SC PRN (11:20)
[2018-12-09 11:58] LABS: #Eosinphils 0.3 thou/uL (0.0-0.7); #Lymphocytes 0.9 thou/uL (1.20-3.40); #Monocytes 0.6 thou/uL (0.11-0.59); #Neutrophils 3.8 thou/uL (1.40-6.50); %Basophils 0.1 % (0.0-1.0); %Eosinophils 5.7 % (0.0-10.0); %Lymphocytes 16.6 % (21.0-51.0); %Monocytes 9.8 % (0.0-10.0); %Neutrophils 67.7 % (42.0-75.0); Mean Corpuscular HGB CONC 32.4 g/dL (32.0-36.0); Mean Corpuscular Hemoglobin 28.7 pg (27.0-31.0); Mean Corpuscular Volume 88.5 fL (78.0-98.0); Mean Platelet Volume 8.8 fL (7.4-10.4); Platelet Count 90 thou/uL (130-400); RBC Distribution Width 16.2 % (11.5-14.5); White Blood Cell (WBC) Count 5.6 thou/uL (4.8-10.8)
[2018-12-09 12:09] LABS: Anion Gap 12 mmol/L (10-20); BUN (Urea Nitrogen) 44 mg/dL (9.8-20.1); Calc. Creatinine Clearance 23 mL/min (70-130); Calcium 8.1 mg/dL (7.8-10.44); Carbon Dioxide 16 mmol/L (23-31); Chloride 107 mmol/L (98-107); Estimated GFR-MDRD 24; Glucose 295 mg/dL (83-110); Potassium 4.7 mmol/L (3.5-5.1); Sodium 130 mmol/L (136-145)
--- NOTE | 2018-12-09 13:41 | PDOC.PN ---
- Subjective Encounter Start Date: 12/09/18 Encounter Start Time: 07:00 - Objective Resuscitation Status - Order Detail: 12/06/18 22:17 Resuscitation Status Routine Resuscitation Status: FULL: Full Resuscitation MAR Reviewed: Yes Vital Signs & Weight: Vital Signs (12 hours) Temp Pulse Resp BP Pulse Ox 12/09/18 11:17 98.5 F 61 14 130/57 L 100 12/09/18 07:13 98.4 F 63 12 124/53 L 98 Weight Admit Weight 130 lb Weight 139 lb I&O: 12/08/18 12/09/18 12/10/18 06:59 06:59 06:59 Intake Total 2700 1667 Balance 2700 1667 Result Diagrams: 12/09/18 11:29 12/09/18 11:29 Additional Labs: Accuchecks 12/09/18 12/09/18 12/08/18 10:52 05:26 20:18 POC Glucose 302 H 123 H 222 H 12/08/18 16:40 POC Glucose 215 H EKG Reviewed by me: Yes (Tele: NSR) Phys Exam - Physical Examination Constitutional: NAD HEENT: moist MMs Neck: supple Respiratory: clear to auscultation bilateral Cardiovascular: RRR Gastrointestinal: soft Neurological: moves all 4 limbs Psychiatric: normal affect Dx/Plan (1) Acute metabolic encephalopathy Code(s): G93.41 - METABOLIC ENCEPHALOPATHY Status: Acute Comment: Improving , will continue lactulose, rifaxmin and levofloxacin. Pt needs OT eval/tx. May eventually need HH or SNU. (2) UTI (urinary tract infection) Status: Acute Comment: continue levofloxacin and vancomycin (urine culture grew staphylococcus epidermidis). (3) Diabetes type 2, controlled Code(s): E11.9 - TYPE 2 DIABETES MELLITUS WITHOUT COMPLICATIONS Status: Chronic Qualifiers: Comment: controlled (4) Hypertension Code(s): I10 - ESSENTIAL (PRIMARY) HYPERTENSION Status: Chronic Qualifiers: Comment: Improved, hydralazine started yesterday (5) Hypothyroidism Code(s): E03.9 - HYPOTHYROIDISM, UNSPECIFIED Status: Chronic Qualifiers: Comment: continue synthroid (6) Hepatic encephalopathy Code(s): K72.90 - HEPATIC FAILURE, UNSPECIFIED WITHOUT COMA Status: Resolved - Plan * . Review of Systems - Review of Systems Respiratory: negative: Cough, Shortness of Breath, SOB with Excertion, Pleuritic Pain, Wheezing Cardiovascular: negative: chest pain, palpitations, orthopnea, paroxysmal nocturnal dyspnea, edema, light headedness - Medications/Allergies Allergies/Adverse Reactions: Allergies Allergy/AdvReac Type Severity Reaction Status Date / Time naproxen sodium [From Aleve] Allergy Mild Verified 12/06/18 23:06 ceftriaxone [From Rocephin] Allergy Unknown Verified 12/06/18 23:06 hydrocodone Allergy Verified 12/06/18 23:06 Medications: Current Medications Aspirin (Ecotrin) 81 mg PO DAILY [facility] Last Admin: 12/09/18 09:16 Dose: 81 mg Carvedilol (Coreg) 6.25 mg PO BID [facility] Last Admin: 12/09/18 09:17 Dose: 6.25 mg Dextrose/Water (Dextrose 50%) 25 gm SLOW IVP PRN PRN PRN Reason: Hypoglycemia Famotidine (Pepcid) 20 mg SLOW IVP QAM [facility] Last Admin: 12/09/18 09:16 Dose: 20 mg Glucagon (Glucagon) 1 mg IM PRN PRN PRN Reason: Hypoglycemia Hydralazine HCl (Apresoline) 10 mg SLOW IVP Q6H PRN PRN Reason: SBP Greater Than 170 Last Admin: 12/08/18 11:32 Dose: 10 mg Hydralazine HCl (Apresoline) 25 mg PO TID [facility] Last Admin: 12/09/18 09:16 Dose: 25 mg Levofloxacin 500 mg/ Device 100 mls @ 100 mls/hr IVPB Q24HR [facility] Last Admin: 12/09/18 08:50 Dose: Not Given Dextrose/Water (D5w) 1,000 mls @ 0 mls/hr IV .Q0M PRN PRN Reason: Hypoglycemia Vancomycin HCl 750 mg/ Sodium (Chloride) 250 mls @ 250 mls/hr IVPB Q24HR [facility] Last Admin: 12/08/18 16:16 Dose: 250 mls Insulin Human Lispro (Humalog) 0 units SC .MILD SLIDING SCALE PRN PRN Reason: Mild Correctional Scale Last Admin: 12/09/18 11:20 Dose: 5 unit Lactulose (Lactulose) 15 gm PO TID [facility] Last Admin: 12/09/18 09:16 Dose: 15 gm Levothyroxine Sodium (Synthroid) 75 mcg PO 0600 [facility] Last Admin: 12/09/18 08:50 Dose: Not Given Miscellaneous Medication (Pharmacy To Dose) 0 each IVPB PRN PRN PRN Reason: Pharmacy to dose Paroxetine HCl (Paxil) 10 mg PO HS [facility] Last Admin: 12/08/18 20:21 Dose: 10 mg Rifaximin (Xifaxan) 550 mg PO BID [facility] Last Admin: 12/09/18 09:16 Dose: 550 mg Sodium Chloride (Flush - Normal Saline) 10 ml IVF PRN PRN PRN Reason: Saline Flush
[2018-12-09] MEDS: Vancomycin HCl 750 MG in Sodium Chloride 0.9% 250 ML 250 ML IVPB SCH (15:21)
[2018-12-09] MEDS: PARoxetine 20 MG TAB PO SCH (20:51)
--- NOTE | 2018-12-09 22:32 | PDOC.EVN ---
Event Note - Event Note Event Note: Patient developing urticaria/hives on abdomen,arms, and back. Will treat with Bendryl, Pepcid, and steroid. Hold Levaquin for now.
[2018-12-09] MEDS ORDERED: Bacteriostatic Water 30 ML VIAL FS PRN (22:41)
[2018-12-09] MEDS ORDERED: methylPREDNISolone Sod Succ 40 MG VIAL IVP SCH (22:45)
[2018-12-09] MEDS ORDERED: Famotidine 20 MG TAB PO SCH (22:45)
[2018-12-09] MEDS: diphenhydrAMINE 50 MG/ML VIAL IVP PRN (22:59)
[2018-12-10] MEDS: Levothyroxine Sodium 75 MCG TAB PO SCH (05:17)
[2018-12-10] MEDS ORDERED: Clarithromycin 250 MG TAB PO SCH (09:00)
[2018-12-10] MEDS ORDERED: Famotidine 20 MG TAB PO SCH (09:00)
[2018-12-10] MEDS: Rifaximin 550 MG TAB PO SCH ×2 (09:01→21:11)
[2018-12-10] MEDS: Aspirin 81 mg Enteric Coated Tablet PO SCH (09:01)
[2018-12-10] MEDS: Carvedilol 6.25 MG TAB PO SCH ×2 (09:01→21:11)
[2018-12-10] MEDS: hydrALAZINE 25 MG TAB PO SCH ×3 (09:01→21:11)
[2018-12-10] MEDS: diphenhydrAMINE 30 GM TUBE TOP PRN (11:48)
[2018-12-10] MEDS: HumaLOG 300 UNITS/3 ML VIAL SC PRN ×2 (11:49→21:13)
--- NOTE | 2018-12-10 12:08 | PDOC.PN ---
- Subjective Encounter Start Date: 12/10/18 Encounter Start Time: 12:06 Subjective: seen & examined. walking w PT w Walker -: feels well. no N/V/D/Abd pain -: good appetite.regular BMs - Objective Resuscitation Status - Order Detail: 12/06/18 22:17 Resuscitation Status Routine Resuscitation Status: FULL: Full Resuscitation MAR Reviewed: Yes Vital Signs & Weight: Vital Signs (12 hours) Temp Pulse Resp BP Pulse Ox 12/10/18 11:24 97.8 F 66 16 154/69 H 98 12/10/18 07:41 97.9 F 68 16 168/72 H 97 12/10/18 03:22 98.3 F 64 16 142/63 H 96 Weight Admit Weight 130 lb Weight 141 lb 5 oz I&O: 12/09/18 12/10/18 12/11/18 06:59 06:59 06:59 Intake Total 1667 1145 Output Total 225 Balance 1667 920 Result Diagrams: 12/09/18 11:29 12/09/18 11:29 Additional Labs: Accuchecks 12/10/18 12/10/18 12/09/18 11:22 05:09 20:33 POC Glucose 398 H 263 H 189 H 12/09/18 17:06 POC Glucose 133 H Microbiology 12/06/18 22:28 Urine Straight Catheter Urine Culture - Final Staphylococcus epidermidis 12/06/18 19:50 Venous blood - Right Hand Blood Culture - Preliminary NO GROWTH AT 48 HOURS 12/06/18 19:46 Venous blood - Left Arm Blood Culture - Preliminary NO GROWTH AT 48 HOURS Laboratory Tests 12/06/18 12/06/18 12/06/18 19:56 19:56 23:24 Plt Count 108 L Sodium 136 137 Creatinine 1.84 H 1.58 H 12/07/18 12/07/18 12/08/18 05:44 05:44 08:51 Plt Count 109 L Sodium 137 136 Creatinine 1.53 H 1.71 H 12/08/18 12/09/18 12/09/18 08:51 11:29 11:29 Plt Count 96 L 90 L Sodium 130 L Creatinine 2.03 H Phys Exam - Physical Examination Constitutional: NAD HEENT: PERRLA, moist MMs, sclera anicteric, oral pharynx no lesions Neck: no nodes, no JVD, supple, full ROM Respiratory: no wheezing, no rales, no rhonchi, clear to auscultation bilateral Cardiovascular: RRR, no significant murmur, no rub Gastrointestinal: soft, non-tender, no distention, positive bowel sounds Musculoskeletal: no edema, pulses present Neurological: non-focal, normal sensation, moves all 4 limbs Psychiatric: normal affect, A&O x 3 Dx/Plan (1) UTI (urinary tract infection) Status: Acute Comment: cont. vancomycin (urine culture grew staphylococcus epidermidis resistant to levaquin but sensitive to Vancomycin).Change to PO Nitrofurantoin or Clarithromycin on DC (2) Acute renal failure superimposed on stage 3 chronic kidney disease Code(s): N17.9 - ACUTE KIDNEY FAILURE, UNSPECIFIED; N18.3 - CHRONIC KIDNEY DISEASE, STAGE 3 (MODERATE) Status: Acute Comment: Hold diuretics and monitor (3) Allergic drug rash Code(s): L27.0 - GEN SKIN ERUPTION DUE TO DRUGS AND MEDS TAKEN INTERNALLY Status: Acute Comment: levaquin stopped. PRN Benadryl cream. Much better clinically (4) Chronic anemia Code(s): D64.9 - ANEMIA, UNSPECIFIED Status: Chronic Comment: stable. Likely due to Chronic liver disease (5) Coronary artery disease Code(s): I25.10 - ATHSCL HEART DISEASE OF [place] CORONARY ARTERY W/O ANG PCTRS Status: Chronic Qualifiers: Comment: Stable. no acute symptoms. cont ASA,Coreg (6) Diabetes type 2, controlled Code(s): E11.9 - TYPE 2 DIABETES MELLITUS WITHOUT COMPLICATIONS Status: Chronic Qualifiers: Comment: Uncontrolled .restart levemir 10 units BID.cont ISS .Monitor (7) Hypertension Code(s): I10 - ESSENTIAL (PRIMARY) HYPERTENSION Status: Chronic Qualifiers: Comment: Improved,On Coreg and hydralazine( started 12/08/18) (8) Hypothyroidism Code(s): E03.9 - HYPOTHYROIDISM, UNSPECIFIED Status: Chronic Qualifiers: Comment: continue synthroid (9) Liver cirrhosis Code(s): K74.60 - UNSPECIFIED CIRRHOSIS OF LIVER Status: Chronic Comment: Cont Rifaximin and Lactulose.Diuretics on hold due to WILLY. (10) Moderate aortic stenosis Code(s): I35.0 - NONRHEUMATIC AORTIC (VALVE) STENOSIS Status: Chronic Comment: (11) Physical deconditioning Code(s): R53.81 - OTHER MALAISE Status: Chronic Comment: (12) Portal hypertension Code(s): K76.6 - PORTAL HYPERTENSION Status: Chronic (13) Acute metabolic encephalopathy Code(s): G93.41 - METABOLIC ENCEPHALOPATHY Status: Resolved Comment: Improving, will continue lactulose, rifaxmin and levofloxacin. Pt needs OT eval/tx. May eventually need HH or SNU. - Plan continue antibiotics, PT/OT, out of bed/ambulate, DVT proph w/SCDs Clinically better -: DC planning -: Home w HH -: am labs * . Review of Systems - Review of Systems Constitutional: weakness ENT: negative: Ear Pain, Ear Discharge, Nose Pain, Nose Discharge, Nose Congestion, Mouth Pain, Mouth Swelling, Throat Pain, Throat Swelling, Other Respiratory: negative: Cough, Dry, Shortness of Breath, Hemoptysis, SOB with Excertion, Pleuritic Pain, Sputum, Wheezing Cardiovascular: negative: chest pain, palpitations, orthopnea, paroxysmal nocturnal dyspnea, edema, light headedness, other Gastrointestinal: negative: Nausea, Vomiting, Abdominal Pain, Diarrhea, Constipation, Melena, Hematochezia, Other Genitourinary: negative: Dysuria, Frequency, Incontinence, Hematuria, Retention , Other Musculoskeletal: negative: Neck Pain, Shoulder Pain, Arm Pain, Back Pain, Hand Pain, Leg Pain, Foot Pain, Other Neurological: negative: Weakness, Numbness, Incoordination, Change in Speech, Confusion, Seizures, Other - Medications/Allergies Allergies/Adverse Reactions: Allergies Allergy/AdvReac Type Severity Reaction Status Date / Time naproxen sodium [From Aleve] Allergy Mild Verified 12/06/18 23:06 ceftriaxone [From Rocephin] Allergy Unknown Verified 12/06/18 23:06 hydrocodone Allergy Verified 12/06/18 23:06 Medications: Current Medications Aspirin (Ecotrin) 81 mg PO DAILY [facility] Last Admin: 12/10/18 09:01 Dose: 81 mg Carvedilol (Coreg) 6.25 mg PO BID [facility] Last Admin: 12/10/18 09:01 Dose: 6.25 mg Dextrose/Water (Dextrose 50%) 25 gm SLOW IVP PRN PRN PRN Reason: Hypoglycemia Diphenhydramine HCl (Benadryl) 50 mg IVP Q6H PRN PRN Reason: Itching Last Admin: 12/09/18 22:59 Dose: 50 mg Famotidine (Pepcid) 20 mg PO Q24HR [facility] Glucagon (Glucagon) 1 mg IM PRN PRN PRN Reason: Hypoglycemia Hydralazine HCl (Apresoline) 10 mg SLOW IVP Q6H PRN PRN Reason: SBP Greater Than 170 Last Admin: 12/08/18 11:32 Dose: 10 mg Hydralazine HCl (Apresoline) 25 mg PO TID [facility] Last Admin: 12/10/18 09:01 Dose: 25 mg Dextrose/Water (D5w) 1,000 mls @ 0 mls/hr IV .Q0M PRN PRN Reason: Hypoglycemia Vancomycin HCl 750 mg/ Sodium (Chloride) 250 mls @ 250 mls/hr IVPB Q24HR [facility] Last Admin: 12/09/18 15:21 Dose: 250 mls Insulin Human Lispro (Humalog) 0 units SC .MILD SLIDING SCALE PRN PRN Reason: Mild Correctional Scale Last Admin: 12/10/18 11:49 Dose: 6 unit Lactulose (Lactulose) 15 gm PO TID [facility] Last Admin: 12/10/18 09:01 Dose: 15 gm Levothyroxine Sodium (Synthroid) 75 mcg PO 0600 [facility] Last Admin: 12/10/18 05:17 Dose: 75 mcg Miscellaneous Medication (Pharmacy To Dose) 0 each IVPB PRN PRN PRN Reason: Pharmacy to dose Paroxetine HCl (Paxil) 10 mg PO HS [facility] Last Admin: 12/09/18 20:51 Dose: 10 mg Rifaximin (Xifaxan) 550 mg PO BID [facility] Last Admin: 12/10/18 09:01 Dose: 550 mg Sodium Chloride (Flush - Normal Saline) 10 ml IVF PRN PRN PRN Reason: Saline Flush Last Admin: 12/10/18 09:01 Dose: 10 ml Zinc Acetate/Diphenhydramine (Benadryl 2% Cream) 0 gm TOP QIDPRN PRN PRN Reason: Allergies Last Admin: 12/10/18 11:48 Dose: 1 applic
[2018-12-10] MEDS ORDERED: hydrOXYzine 10 MG TAB PO PRN (12:09)
[2018-12-10 15:27] LABS: Vancomycin, Trough 13.7 ug/mL
--- NOTE | 2018-12-10 15:44 | PDOC.PALCO ---
Palliative Care Consult - Consult Details Requesting Physician: Dr Griffiths Reason for Consult: advance directives assistance, assistance with communication prognosis/disease - Pertinent HPI Patient chronically ill with recent onset of altered mental status and increase in weakness. Patient was seen in the ER and admitted. Consult to palliative care for conversation in relation to advance directives and discussion of disease progression and potential outcomes in relation to goals for patient. - Pertinent PMH Hepatic encephalopathy of unknown orgin, DM, HTN, CKD. - Social History Smoking Status: Never smoker Smoking: no tobacco exposure Alcohol Use: none - Medications MAR Reviewed: Yes - Allergies Allergies/Adverse Reactions: Allergies Allergy/AdvReac Type Severity Reaction Status Date / Time naproxen sodium [From Aleve] Allergy Mild Verified 12/06/18 23:06 ceftriaxone [From Rocephin] Allergy Unknown Verified 12/06/18 23:06 hydrocodone Allergy Verified 12/06/18 23:06 - Objective Vital Signs: Vital Signs - Most Recent Temp Pulse Resp BP Pulse Ox 97.5 F L 72 18 142/64 H 98 12/10/18 15:10 12/10/18 15:10 12/10/18 15:10 12/10/18 15:10 12/10/18 15:10 Palliative Performance Scale: 60 - Physical Exam Constitutional: NAD HEENT: PERRLA, EOMI Deviation from normal: Respirations labored with slight accessory muscle use with minimal exertion Gastrointestinal: soft, positive bowel sounds Musculoskeletal: edema present Deviation from normal: Turgor poor, fragile skin. Brusing - Problem List (1) Palliative care encounter Code(s): Z51.5 - ENCOUNTER FOR PALLIATIVE CARE Current Visit: Yes Status: Acute Assessment: Chronic comorbidities with disease trajectory that limit treatment options and pose greater implication for symptom management. (2) Hepatic encephalopathy Code(s): K72.90 - HEPATIC FAILURE, UNSPECIFIED WITHOUT COMA Current Visit: Yes Status: Resolved Comments: Elevated ammonia level upon admission. Patient has become more alert, less confused. Taking lactulose (3) Physical deconditioning Code(s): R53.81 - OTHER MALAISE Current Visit: No Status: Chronic - Plan/Recommendations Plan: *Continue to educate patient and family in relation to Chronic Disease processes and comorbidities *Identify patients expectations of her health and outcome *Potential for family meeting to discuss patients disease processes and readdress Advance Directives and DNAR status [40] minutes spent on this encounter with >50% of the time in counseling and coordination of care. Thank you for this very appropriate consult.
[2018-12-10] MEDS: Vancomycin HCl 750 MG in Sodium Chloride 0.9% 250 ML 250 ML IVPB SCH (17:41)
[2018-12-10] MEDS ORDERED: Insulin Regular 300 UNITS/3 ML VIAL SC SCH (17:45)
[2018-12-10] MEDS ORDERED: Dextrose 50% Abboject 50 ML SYRINGE SLOW IVP PRN (20:56)
[2018-12-10] MEDS ORDERED: Dextrose 5% in Water 1,000 ML IV PRN (20:56)
[2018-12-10] MEDS ORDERED: Non-Formulary Item 1 EACH (Levemir Flexpen [Levemir Flexpen] 10 UNIT) SC SCH (21:00)
[2018-12-10] MEDS: PARoxetine 20 MG TAB PO SCH (21:10)
[2018-12-10] MEDS: Famotidine 20 MG TAB PO SCH (21:11)
[2018-12-10] MEDS: Insulin Glargine 10 UNITS in Pre-Filled Syringe 1 EACH SC SCH (21:14)
[2018-12-10] MEDS ORDERED: Vancomycin HCl 750 MG in Sodium Chloride 0.9% 250 ML 250 ML IVPB SCH (22:00)
[2018-12-11] MEDS: Levothyroxine Sodium 75 MCG TAB PO SCH (05:19)
[2018-12-11] MEDS: diphenhydrAMINE 30 GM TUBE TOP PRN (05:19)
[2018-12-11 05:23] LABS: #Lymphocytes 0.7 thou/uL (1.20-3.40); #Monocytes 0.6 thou/uL (0.11-0.59); #Neutrophils 5.8 thou/uL (1.40-6.50); %Basophils 0.1 % (0.0-1.0); %Eosinophils 0.3 % (0.0-10.0); %Lymphocytes 10.3 % (21.0-51.0); %Monocytes 7.8 % (0.0-10.0); %Neutrophils 81.6 % (42.0-75.0); Hemoglobin 10.3 g/dL (12.0-16.0); Mean Corpuscular HGB CONC 32.6 g/dL (32.0-36.0); Mean Corpuscular Hemoglobin 28.5 pg (27.0-31.0); Mean Corpuscular Volume 87.4 fL (78.0-98.0); Mean Platelet Volume 8.9 fL (7.4-10.4); Platelet Count 97 thou/uL (130-400); RBC Distribution Width 15.8 % (11.5-14.5); White Blood Cell (WBC) Count 7.1 thou/uL (4.8-10.8)
[2018-12-11 05:43] LABS: Anion Gap 13 mmol/L (10-20); BUN (Urea Nitrogen) 73 mg/dL (9.8-20.1); Calc. Creatinine Clearance 15 mL/min (70-130); Calcium 8.4 mg/dL (7.8-10.44); Carbon Dioxide 15 mmol/L (23-31); Chloride 106 mmol/L (98-107); Estimated GFR-MDRD 14; Glucose 241 mg/dL (83-110); Potassium 5.2 mmol/L (3.5-5.1); Sodium 129 mmol/L (136-145)
[2018-12-11 08:25] LABS: Vancomycin, Random 23.6 ug/mL (See Comment)
[2018-12-11] MEDS: Spironolactone 100 MG TAB PO SCH (10:10)
[2018-12-11] MEDS: Aspirin 81 mg Enteric Coated Tablet PO SCH (10:10)
[2018-12-11] MEDS: Rifaximin 550 MG TAB PO SCH ×2 (10:10→20:40)
[2018-12-11] MEDS: hydrALAZINE 25 MG TAB PO SCH ×3 (10:12→20:39)
[2018-12-11] MEDS: Carvedilol 6.25 MG TAB PO SCH ×2 (10:13→20:40)
[2018-12-11] MEDS: Insulin Glargine 10 UNITS in Pre-Filled Syringe 1 EACH SC SCH ×2 (10:13→20:40)
[2018-12-11] MEDS: HumaLOG 300 UNITS/3 ML VIAL SC PRN ×3 (11:23→20:43)
--- NOTE | 2018-12-11 11:56 | EKG ---
Test Reason : Blood Pressure : / mmHG Vent. Rate : 054 BPM Atrial Rate : 054 BPM P-R Int : 160 ms QRS Dur : 122 ms QT Int : 512 ms P-R-T Axes : 036 034 101 degrees QTc Int : 485 ms Sinus bradycardia Inferior infarct , age undetermined T wave abnormality, consider lateral ischemia Abnormal ECG Biatrial enlargement Left bundle branch block Left ventricular hypertrophy Confirmed by RENALDO FALLON, SIMON Cobos ([id number]), assistant film editor RAAD OLIVARES ([id number]) on 12/11/2018 11:55:56 AM Referred By: Confirmed By:SIMON MACARIO MD
--- NOTE | 2018-12-11 14:28 | PDOC.PN ---
- Subjective Encounter Start Date: 12/11/18 Encounter Start Time: 14:26 Subjective: feels good. many loose stools this morning -: rash persist w itiching,mainly chest and back - Objective Resuscitation Status - Order Detail: 12/06/18 22:17 Resuscitation Status Routine Resuscitation Status: FULL: Full Resuscitation MAR Reviewed: Yes Vital Signs & Weight: Vital Signs (12 hours) Temp Pulse Resp BP BP BP Pulse Ox 12/11/18 12:00 97.7 F 67 18 139/60 99 12/11/18 10:13 153/65 H 12/11/18 10:12 61 12/11/18 08:10 99 12/11/18 08:00 97.7 F 64 20 153/65 H 99 12/11/18 04:00 98.3 F 69 18 148/66 H 100 Weight Admit Weight 130 lb Weight 142 lb I&O: 12/10/18 12/11/18 12/12/18 06:59 06:59 06:59 Intake Total 1145 870 360 Output Total 225 600 Balance 920 270 360 Result Diagrams: 12/11/18 05:04 12/11/18 05:04 Additional Labs: Accuchecks 12/11/18 12/11/18 12/10/18 10:28 05:25 23:33 POC Glucose 312 H 227 H 393 H 12/10/18 12/10/18 20:25 17:00 POC Glucose 503 H 452 H Microbiology 12/06/18 22:28 Urine Straight Catheter Urine Culture - Final Staphylococcus epidermidis 12/06/18 19:50 Venous blood - Right Hand Blood Culture - Preliminary NO GROWTH AT 48 HOURS 12/06/18 19:46 Venous blood - Left Arm Blood Culture - Preliminary NO GROWTH AT 48 HOURS Laboratory Tests 12/06/18 12/06/18 12/07/18 19:56 23:24 05:44 Sodium 136 137 Creatinine 1.84 H 1.58 H 1.53 H 12/08/18 12/09/18 08:51 11:29 Sodium Creatinine 1.71 H 2.03 H Phys Exam - Physical Examination Constitutional: NAD HEENT: PERRLA, moist MMs, sclera anicteric, oral pharynx no lesions Neck: no nodes, no JVD, supple, full ROM Respiratory: no wheezing, no rales, no rhonchi, clear to auscultation bilateral Cardiovascular: RRR, no significant murmur Gastrointestinal: soft, non-tender, no distention, positive bowel sounds Musculoskeletal: no edema, pulses present Neurological: non-focal, normal sensation, moves all 4 limbs Psychiatric: normal affect, A&O x 3 Deviation from normal: erythematous confluent rash upper chest and back Dx/Plan (1) UTI (urinary tract infection) Status: Acute Comment: conwas on vancomycin (urine culture grew staphylococcus epidermidis resistant to levaquin but sensitive to Vancomycin) .will consider Change to PO Nitrofurantoin or Clarithromycin on DC Stop vancomycin today due to rash (2) Acute renal failure superimposed on stage 3 chronic kidney disease Code(s): N17.9 - ACUTE KIDNEY FAILURE, UNSPECIFIED; N18.3 - CHRONIC KIDNEY DISEASE, STAGE 3 (MODERATE) Status: Acute Comment: Hold diuretics and monitor (3) Allergic drug rash Code(s): L27.0 - GEN SKIN ERUPTION DUE TO DRUGS AND MEDS TAKEN INTERNALLY Status: Acute Comment: levaquin stopped. PRN Benadryl cream. Much better clinically (4) Chronic anemia Code(s): D64.9 - ANEMIA, UNSPECIFIED Status: Chronic Comment: stable. Likely due to Chronic liver disease (5) Coronary artery disease Code(s): I25.10 - ATHSCL HEART DISEASE OF [place] CORONARY ARTERY W/O ANG PCTRS Status: Chronic Qualifiers: Comment: Stable. no acute symptoms. cont ASA,Coreg (6) Diabetes type 2, controlled Code(s): E11.9 - TYPE 2 DIABETES MELLITUS WITHOUT COMPLICATIONS Status: Chronic Qualifiers: Comment: Uncontrolled .restart levemir 10 units BID.cont ISS .Monitor (7) Hypertension Code(s): I10 - ESSENTIAL (PRIMARY) HYPERTENSION Status: Chronic Qualifiers: Comment: Improved,On Coreg and hydralazine( started 12/08/18) (8) Hypothyroidism Code(s): E03.9 - HYPOTHYROIDISM, UNSPECIFIED Status: Chronic Qualifiers: Comment: continue synthroid (9) Liver cirrhosis Code(s): K74.60 - UNSPECIFIED CIRRHOSIS OF LIVER Status: Chronic Comment: Cont Rifaximin and Lactulose.Diuretics on hold due to WILLY. (10) Moderate aortic stenosis Code(s): I35.0 - NONRHEUMATIC AORTIC (VALVE) STENOSIS Status: Chronic Comment: (11) Physical deconditioning Code(s): R53.81 - OTHER MALAISE Status: Chronic Comment: (12) Portal hypertension Code(s): K76.6 - PORTAL HYPERTENSION Status: Chronic (13) Acute metabolic encephalopathy Code(s): G93.41 - METABOLIC ENCEPHALOPATHY Status: Resolved Comment: Improving, will continue lactulose, rifaxmin and levofloxacin. Pt needs OT eval/tx. May eventually need HH or SNU. - Plan PT/OT, out of bed/ambulate, DVT proph w/SCDs stop vancomycin due to rash.cont prn benadryyl cream .on prn PO atarax -: renal Fx has worsened w hyperkalemia.will give 1 dose kayexalate -: suspect hepatorenal .Consult nephrology.cont to hold diuretics. -: mentation back to baseline. Titrate lactulose to 2-3 stools daily -: am labs. not ready for DC d/t WILLY and allergic drug rash * . Review of Systems - Review of Systems Constitutional: weakness. negative: fever, chills, sweats, malaise, other Respiratory: negative: Cough, Dry, Shortness of Breath, Hemoptysis, SOB with Excertion, Pleuritic Pain, Sputum, Wheezing Cardiovascular: negative: chest pain, palpitations, orthopnea, paroxysmal nocturnal dyspnea, edema, light headedness, other Gastrointestinal: Diarrhea. negative: Nausea, Vomiting, Abdominal Pain, Constipation, Melena, Hematochezia, Other Genitourinary: negative: Dysuria, Frequency, Incontinence, Hematuria, Retention , Other Musculoskeletal: negative: Neck Pain, Shoulder Pain, Arm Pain, Back Pain, Hand Pain, Leg Pain, Foot Pain, Other Skin: Rash Neurological: negative: Weakness, Numbness, Incoordination, Change in Speech, Confusion, Seizures, Other - Medications/Allergies Allergies/Adverse Reactions: Allergies Allergy/AdvReac Type Severity Reaction Status Date / Time naproxen sodium [From Aleve] Allergy Mild Verified 12/06/18 23:06 ceftriaxone [From Rocephin] Allergy Unknown Verified 12/06/18 23:06 hydrocodone Allergy Verified 12/06/18 23:06 Medications: Current Medications Aspirin (Ecotrin) 81 mg PO DAILY [facility] Last Admin: 12/11/18 10:10 Dose: 81 mg Carvedilol (Coreg) 6.25 mg PO BID [facility] Last Admin: 12/11/18 10:13 Dose: 6.25 mg Dextrose/Water (Dextrose 50%) 25 gm SLOW IVP PRN PRN PRN Reason: Hypoglycemia Dextrose/Water (Dextrose 50%) 25 gm SLOW IVP PRN PRN PRN Reason: Hypoglycemia Diphenhydramine HCl (Benadryl) 50 mg IVP Q6H PRN PRN Reason: Itching Last Admin: 12/09/18 22:59 Dose: 50 mg Famotidine (Pepcid) 20 mg PO Q24HR [facility] Last Admin: 12/10/18 21:11 Dose: 20 mg Glucagon (Glucagon) 1 mg IM PRN PRN PRN Reason: Hypoglycemia Glucagon (Glucagon) 1 mg IM PRN PRN PRN Reason: Hypoglycemia Hydralazine HCl (Apresoline) 10 mg SLOW IVP Q6H PRN PRN Reason: SBP Greater Than 170 Last Admin: 12/08/18 11:32 Dose: 10 mg Hydralazine HCl (Apresoline) 25 mg PO TID [facility] Last Admin: 12/11/18 10:12 Dose: 25 mg Hydroxyzine HCl (Atarax) 10 mg PO TIDPRN PRN PRN Reason: Itching Dextrose/Water (D5w) 1,000 mls @ 0 mls/hr IV .Q0M PRN PRN Reason: Hypoglycemia Insulin Glargine 10 units/ (Miscellaneous Medication) 0.1 mls @ 0 mls/hr [facility] Last Admin: 12/10/18 21:14 Dose: 0.1 mls Insulin Glargine 10 units/ (Miscellaneous Medication) 0.1 mls @ 0 mls/[facility] Last Admin: 12/11/18 10:13 Dose: 0.1 mls Dextrose/Water (D5w) 1,000 mls @ 0 mls/hr IV .Q0M PRN PRN Reason: Hypoglycemia Vancomycin HCl 750 mg/ Sodium (Chloride) 250 mls @ 250 mls/hr IVPB Q48H [facility] Insulin Human Lispro (Humalog) 0 units SC .MODERATE SLIDING SC PRN; Protocol PRN Reason: MODERATE SLIDING SCALE Last Admin: 12/11/18 11:23 Dose: 8 unit Insulin Human Lispro (Humalog) 0 units SC .BEDTIME SLIDING SC PRN PRN Reason: Bedtime Correctional Scale Last Admin: 12/10/18 21:13 Dose: 5 unit Lactulose (Lactulose) 15 gm PO TID PRN PRN Reason: 2-3 STOOLS/DAY Levothyroxine Sodium (Synthroid) 75 mcg PO 0600 [facility] Last Admin: 12/11/18 05:19 Dose: 75 mcg Miscellaneous Medication (Pharmacy To Dose) 0 each IVPB PRN PRN PRN Reason: Pharmacy to dose Paroxetine HCl (Paxil) 10 mg PO HS [facility] Last Admin: 12/10/18 21:10 Dose: 10 mg Rifaximin (Xifaxan) 550 mg PO BID [facility] Last Admin: 12/11/18 10:10 Dose: 550 mg Sodium Chloride (Flush - Normal Saline) 10 ml IVF PRN PRN PRN Reason: Saline Flush Last Admin: 12/11/18 10:09 Dose: 10 ml Spironolactone (Aldactone) 100 mg PO DAILY [facility] Last Admin: 12/11/18 10:10 Dose: 100 mg Zinc Acetate/Diphenhydramine (Benadryl 2% Cream) 0 gm TOP QIDPRN PRN PRN Reason: Allergies Last Admin: 12/11/18 05:19 Dose: 1 applic
[2018-12-11] MEDS ORDERED: Sodium Bicarbonate 150 MEQ in Dextrose 5% in Water 1,000 ML IV SCH (18:00)
[2018-12-11] MEDS: Sodium Bicarbonate 150 MEQ in Dextrose 5% in Water 1,000 ML IV SCH (20:03)
[2018-12-11] MEDS: diphenhydrAMINE 50 MG/ML VIAL IVP PRN (20:03)
[2018-12-11] MEDS: Famotidine 20 MG TAB PO SCH (20:39)
[2018-12-11] MEDS: PARoxetine 20 MG TAB PO SCH (20:40)
--- NOTE | 2018-12-12 00:03 | CON ---
DATE OF CONSULTATION: CONSULTING PHYSICIAN: Rabia Ramírez MD REASON FOR CONSULTATION: Acute on chronic kidney disease. IMPRESSION: 1. Acute on chronic kidney disease. The etiology is not very clear at this point. 2. Metabolic acidosis, possibly related to bicarb loss from the laxative in addition to the reduced GFR. 3. Hyperkalemia, possibly related to cellular shift of potassium due to metabolic acidosis. 4. Hyponatremia. PLAN: Renal supportive measures including, 1. Gentle rehydration overnight with a bicarb-based infusion. 2. Renally dose all medications. 3. Avoid potentially nephrotoxic agents. 4. I have checked the vancomycin level and is within therapeutic range. Otherwise, this could be a potential culprit. 5. Further management will be dependent on the clinical course. HISTORY: History is that of 78-year-old female patient, who for unknown reason does have intermittent encephalopathy in the context of hyper-ammonia level with normal liver function test. The patient presented with this syndrome with a creatinine of 1.84 on presentation. However, over the course of hospitalization, creatinine has gone up to 3.13 with no identifiable etiologic agent. The patient remained hemodynamically stable throughout hospitalization. The patient did receive some laxative but according to the patient and the family, no significant diarrhea except today. As a result of these findings, decision has been taken to involve Renal in the management of this case. PAST MEDICAL HISTORY: Significant for recurrent encephalopathy; diabetes mellitus, type 2; hypertension; chronic kidney disease, stage 3; psoriasis, and coronary artery disease. FAMILY HISTORY: Not significantly related to present illness. SOCIAL HISTORY: No alcohol, no tobacco, no illicit drug use. ALLERGIES: TO HYDROCODONE AND NAPROXEN. MEDICATIONS: Reviewed as documented in the [facility]. REVIEW OF SYSTEMS: As documented in the body of the history. Otherwise, all other systems were reviewed and found not to be significantly related to presenting illness. LABORATORY INVESTIGATION: Showed a sodium of 129, potassium of 5.2, bicarb 15, BUN of 73, and a creatinine of 3.13. PHYSICAL EXAMINATION: GENERAL: The patient was found not to be in any obvious distress. VITAL SIGNS: Noted with the following vital signs; afebrile, temperature 97.9, pulse , respiratory rate of 18, O2 saturation 98%, and blood pressure 146/64. HEENT: Unremarkable. Moist oral mucosa. No conjunctival injection or icterus. NECK: Supple. CARDIOVASCULAR: First and second heart sounds were heard. RESPIRATORY: Clear to auscultation. DIGESTIVE: Revealed a benign abdomen with positive bowel sounds. EXTREMITIES: No peripheral edema. SKIN: No new gross rash. LYMPHATICS: No peripheral lymphadenopathy. In summary, a 78-year-old female patient, who presented here with encephalopathy and over the course of hospitalization, is now experiencing worsening renal failure. Thank you for this consultation. We will follow up with you. Job ID: [id number]
[2018-12-12 04:56] LABS: #Eosinphils 0.5 thou/uL (0.0-0.7); #Lymphocytes 1.1 thou/uL (1.20-3.40); #Monocytes 0.6 thou/uL (0.11-0.59); #Neutrophils 3.8 thou/uL (1.40-6.50); %Basophils 0.3 % (0.0-1.0); %Eosinophils 8.1 % (0.0-10.0); %Lymphocytes 17.8 % (21.0-51.0); %Monocytes 10.7 % (0.0-10.0); %Neutrophils 63.1 % (42.0-75.0); Hemoglobin 10.2 g/dL (12.0-16.0); Mean Corpuscular HGB CONC 32.9 g/dL (32.0-36.0); Mean Corpuscular Hemoglobin 28.8 pg (27.0-31.0); Mean Corpuscular Volume 87.5 fL (78.0-98.0); Mean Platelet Volume 8.7 fL (7.4-10.4); Platelet Count 108 thou/uL (130-400); RBC Distribution Width 16.1 % (11.5-14.5); Red Blood Cell (RBC) Count 3.55 mill/uL (4.20-5.40)
[2018-12-12 05:06] LABS: Anion Gap 12 mmol/L (10-20); BUN (Urea Nitrogen) 73 mg/dL (9.8-20.1); Calc. Creatinine Clearance 16 mL/min (70-130); Calcium 7.4 mg/dL (7.8-10.44); Carbon Dioxide 21 mmol/L (23-31); Chloride 103 mmol/L (98-107); Estimated GFR-MDRD 16; Glucose 185 mg/dL (83-110); Potassium 4.2 mmol/L (3.5-5.1); Sodium 132 mmol/L (136-145)
[2018-12-12] MEDS: Levothyroxine Sodium 75 MCG TAB PO SCH (05:17)
[2018-12-12] MEDS: Sodium Bicarbonate 150 MEQ in Dextrose 5% in Water 1,000 ML IV SCH ×3 (05:19→17:19)
[2018-12-12] MEDS: Carvedilol 6.25 MG TAB PO SCH ×2 (08:59→21:50)
[2018-12-12] MEDS: hydrALAZINE 25 MG TAB PO SCH ×3 (08:59→21:50)
[2018-12-12] MEDS: Rifaximin 550 MG TAB PO SCH ×2 (08:59→21:50)
[2018-12-12] MEDS: Aspirin 81 mg Enteric Coated Tablet PO SCH (08:59)
[2018-12-12] MEDS: Spironolactone 100 MG TAB PO SCH (09:00)
[2018-12-12] MEDS: Insulin Glargine 10 UNITS in Pre-Filled Syringe 1 EACH SC SCH ×2 (09:03→21:51)
[2018-12-12] MEDS: HumaLOG 300 UNITS/3 ML VIAL SC PRN ×3 (09:04→17:20)
[2018-12-12] MEDS ORDERED: Vancomycin HCl 750 MG in Sodium Chloride 0.9% 250 ML 250 ML IVPB SCH (16:00)
--- NOTE | 2018-12-12 19:54 | PDOC.PN ---
- Subjective Encounter Start Date: 12/12/18 Encounter Start Time: 10:15 Subjective: pt up in bed still complains of itching to her back, chest and abdomen - Objective Resuscitation Status - Order Detail: 12/06/18 22:17 Resuscitation Status Routine Resuscitation Status: FULL: Full Resuscitation Vital Signs & Weight: Vital Signs (12 hours) Temp Pulse Pulse Pulse Resp BP BP 12/12/18 16:00 97.0 F L 67 17 12/12/18 14:58 62 118/56 L 12/12/18 14:00 70 68 118/56 L 12/12/18 12:00 97.2 F L 72 16 12/12/18 08:59 62 12/12/18 08:00 97.4 F L 73 18 BP BP Pulse Ox 12/12/18 16:00 121/59 L 99 12/12/18 14:58 12/12/18 14:00 111/51 L 12/12/18 12:00 130/64 97 12/12/18 08:59 12/12/18 08:00 148/66 H 98 Weight Admit Weight 130 lb Weight 144 lb I&O: 12/11/18 12/12/18 12/13/18 06:59 06:59 06:59 Intake Total 870 2010 1850 Output Total 600 1100 400 Balance 528 942 2171 Result Diagrams: 12/12/18 04:34 12/12/18 04:34 Additional Labs: Accuchecks 12/12/18 12/12/18 12/12/18 17:07 10:52 05:14 POC Glucose 234 H 222 H 214 H 12/11/18 20:25 POC Glucose 343 H Phys Exam - Physical Examination Neck: no nodes, no JVD, supple, full ROM Respiratory: no wheezing, no rales, no rhonchi, wheezing present, clear to auscultation bilateral Cardiovascular: RRR, no significant murmur, no rub, gallop, irregular Gastrointestinal: soft, non-tender, no distention, positive bowel sounds Deviation from normal: rash to bilateral upper ext, back and chest Dx/Plan (1) Acute metabolic encephalopathy Code(s): G93.41 - METABOLIC ENCEPHALOPATHY Status: Resolved Comment: Improving, will continue lactulose, rifaxmin and levofloxacin. Pt needs OT eval/tx. May eventually need HH or SNU. (2) Acute renal failure superimposed on stage 3 chronic kidney disease Code(s): N17.9 - ACUTE KIDNEY FAILURE, UNSPECIFIED; N18.3 - CHRONIC KIDNEY DISEASE, STAGE 3 (MODERATE) Status: Acute Comment: Hold diuretics and monitor (3) Allergic drug rash Code(s): L27.0 - GEN SKIN ERUPTION DUE TO DRUGS AND MEDS TAKEN INTERNALLY Status: Acute Comment: levaquin stopped. PRN Benadryl cream. Much better clinically (4) UTI (urinary tract infection) Status: Acute Comment: conwas on vancomycin (urine culture grew staphylococcus epidermidis resistant to levaquin but sensitive to Vancomycin) .will consider Change to PO Nitrofurantoin or Clarithromycin on DC Stop vancomycin today due to rash (5) Diabetes type 2, controlled Code(s): E11.9 - TYPE 2 DIABETES MELLITUS WITHOUT COMPLICATIONS Status: Chronic Qualifiers: Comment: Uncontrolled .restart levemir 10 units BID.cont ISS .Monitor - Plan her creatinine continues to improve, pt states that her -: rash started 3 days ago, not sure why vanco was discontinued -: her cx indicated staph epi which is resistant to most of the drugs -: for now i will put her on nitrofurantoin but this will need to be changed -: since she had systemic symptoms when she can in for her uti * . Review of Systems - Review of Systems Respiratory: negative: Cough, Dry, Shortness of Breath, Hemoptysis, SOB with Excertion, Pleuritic Pain, Sputum, Wheezing Cardiovascular: negative: chest pain, palpitations, orthopnea, paroxysmal nocturnal dyspnea, edema, light headedness, other Skin: Rash - Medications/Allergies Allergies/Adverse Reactions: Allergies Allergy/AdvReac Type Severity Reaction Status Date / Time naproxen sodium [From Aleve] Allergy Mild Verified 12/06/18 23:06 ceftriaxone [From Rocephin] Allergy Unknown Verified 12/06/18 23:06 hydrocodone Allergy Verified 12/06/18 23:06 Medications: Current Medications Aspirin (Ecotrin) 81 mg PO DAILY [facility] Last Admin: 12/12/18 08:59 Dose: 81 mg Carvedilol (Coreg) 6.25 mg PO BID [facility] Last Admin: 12/12/18 08:59 Dose: 6.25 mg Dextrose/Water (Dextrose 50%) 25 gm SLOW IVP PRN PRN PRN Reason: Hypoglycemia Diphenhydramine HCl (Benadryl) 50 mg IVP Q6H PRN PRN Reason: Itching Last Admin: 12/11/18 20:03 Dose: 50 mg Famotidine (Pepcid) 20 mg PO Q24HR [facility] Last Admin: 12/11/18 20:39 Dose: 20 mg Glucagon (Glucagon) 1 mg IM PRN PRN PRN Reason: Hypoglycemia Hydralazine HCl (Apresoline) 10 mg SLOW IVP Q6H PRN PRN Reason: SBP Greater Than 170 Last Admin: 12/08/18 11:32 Dose: 10 mg Hydralazine HCl (Apresoline) 25 mg PO TID [facility] Last Admin: 12/12/18 14:58 Dose: 25 mg Hydroxyzine HCl (Atarax) 10 mg PO TIDPRN PRN PRN Reason: Itching Insulin Glargine 10 units/ (Miscellaneous Medication) 0.1 mls @ 0 mls/hr SC HS [facility] Last Admin: 12/11/18 20:40 Dose: 0.1 mls Insulin Glargine 10 units/ (Miscellaneous Medication) 0.1 mls @ 0 mls/hr SC QAM [facility] Last Admin: 12/12/18 09:03 Dose: 0.1 mls Dextrose/Water (D5w) 1,000 mls @ 0 mls/hr IV .Q0M PRN PRN Reason: Hypoglycemia Sodium Bicarbonate 150 meq/ (Dextrose/Water) 1,150 mls @ 75 mls/hr IV .[id number] [facility] Last Admin: 12/12/18 17:19 Dose: 1,150 mls Insulin Human Lispro (Humalog) 0 units SC .MODERATE SLIDING SC PRN; Protocol PRN Reason: MODERATE SLIDING SCALE Last Admin: 12/12/18 17:20 Dose: 4 unit Insulin Human Lispro (Humalog) 0 units SC .BEDTIME SLIDING SC PRN PRN Reason: Bedtime Correctional Scale Last Admin: 12/11/18 20:43 Dose: 4 unit Lactulose (Lactulose) 15 gm PO TID PRN PRN Reason: 2-3 STOOLS/DAY Levothyroxine Sodium (Synthroid) 75 mcg PO 0600 [facility] Last Admin: 12/12/18 05:17 Dose: 75 mcg Nitrofurantoin Macrocrystals (Macrobid) 100 mg PO BID [facility] Paroxetine HCl (Paxil) 10 mg PO HS [facility] Last Admin: 12/11/18 20:40 Dose: 10 mg Rifaximin (Xifaxan) 550 mg PO BID [facility] Last Admin: 12/12/18 08:59 Dose: 550 mg Sodium Chloride (Flush - Normal Saline) 10 ml IVF PRN PRN PRN Reason: Saline Flush Last Admin: 12/11/18 10:09 Dose: 10 ml Spironolactone (Aldactone) 100 mg PO DAILY [facility] Last Admin: 12/12/18 09:00 Dose: 100 mg Zinc Acetate/Diphenhydramine (Benadryl 2% Cream) 0 gm TOP QIDPRN PRN PRN Reason: Allergies Last Admin: 12/11/18 05:19 Dose: 1 applic
[2018-12-12] MEDS: PARoxetine 20 MG TAB PO SCH (21:50)
[2018-12-12] MEDS: Nitrofurantoin Monohyd/M-Cryst 100 MG CAP PO SCH (21:51)
[2018-12-12] MEDS: Famotidine 20 MG TAB PO SCH (21:51)
--- NOTE | 2018-12-12 22:57 | PRG ---
DATE OF SERVICE: 12/12/2018 SUBJECTIVE: The patient is seen and examined. OBJECTIVE: VITAL SIGNS: Noted with the following vital signs. Afebrile, temperature 98.1, pulse 67, respiratory rate of 18, O2 saturation 98%, and blood pressure 113/53. HEENT: Unremarkable. Moist oral mucosa. No conjunctival injection or icterus. NECK: Supple. CARDIOVASCULAR: First and second heart sounds were heard. RESPIRATORY: Clear to auscultation. DIGESTIVE: Revealed a benign abdomen with positive bowel sounds. EXTREMITIES: No peripheral edema. SKIN: No new gross rash. LYMPHATICS: No peripheral lymphadenopathy. LABORATORY INVESTIGATION: Showed a sodium 132, BUN of 73, creatinine of 2.91, bicarb of 21. IMPRESSION: 1. Hyponatremia. 2. Acute kidney injury, which seems to show some major improvement. 3. Metabolic acidosis, improving. PLAN: 1. We will deescalate IV fluids. 2. Renal supportive measures. 3. Further management will be dependent on the clinical course. Job ID: [id number]
[2018-12-13] MEDS: Levothyroxine Sodium 75 MCG TAB PO SCH (05:16)
[2018-12-13 05:54] LABS: Anion Gap 13 mmol/L (10-20); BUN (Urea Nitrogen) 77 mg/dL (9.8-20.1); Calc. Creatinine Clearance 16 mL/min (70-130); Calcium 7.5 mg/dL (7.8-10.44); Carbon Dioxide 31 mmol/L (23-31); Chloride 97 mmol/L (98-107); Estimated GFR-MDRD 13; Glucose 66 mg/dL (83-110); Potassium 4.5 mmol/L (3.5-5.1); Sodium 136 mmol/L (136-145)
[2018-12-13 08:01] LABS: Band 7 % (5-11); Eosinophils 6 % (0-10); Hemoglobin 10.2 g/dL (12.0-16.0); Lymphocytes 19 % (21-51); MDiff Complete? YES; Mean Corpuscular HGB CONC 32.2 g/dL (32.0-36.0); Mean Corpuscular Hemoglobin 28.1 pg (27.0-31.0); Mean Corpuscular Volume 87.2 fL (78.0-98.0); Mean Platelet Volume 8.4 fL (7.4-10.4); Monocytes 10 % (0-10); Neutrophil 47 % (42-75); Platelet Count 121 thou/uL (130-400); Platelet Morphology Comment Appears Decreased; Polychromasia SLIGHT = 2-3 cells (100X) (0-2/hpf); RBC Distribution Width 16.2 % (11.5-14.5); Reactive Lymphocytes 11 % (0-10); Red Blood Cell (RBC) Count 3.63 mill/uL (4.20-5.40); White Blood Cell (WBC) Count 6.2 thou/uL (4.8-10.8)
[2018-12-13] MEDS: Carvedilol 6.25 MG TAB PO SCH ×2 (08:16→20:56)
[2018-12-13] MEDS: Aspirin 81 mg Enteric Coated Tablet PO SCH (08:16)
[2018-12-13] MEDS: hydrALAZINE 25 MG TAB PO SCH ×3 (08:16→20:55)
[2018-12-13] MEDS: Nitrofurantoin Monohyd/M-Cryst 100 MG CAP PO SCH ×2 (08:17→20:55)
[2018-12-13] MEDS: Sodium Bicarbonate 150 MEQ in Dextrose 5% in Water 1,000 ML IV SCH (08:17)
[2018-12-13] MEDS: Spironolactone 100 MG TAB PO SCH (08:17)
[2018-12-13] MEDS: Rifaximin 550 MG TAB PO SCH (08:17)
[2018-12-13] MEDS: Insulin Glargine 10 UNITS in Pre-Filled Syringe 1 EACH SC SCH ×2 (08:41→20:56)
[2018-12-13] MEDS ORDERED: Sodium Chloride 0.9% 500 ML IV SCH (08:45)
[2018-12-13] MEDS: HumaLOG 300 UNITS/3 ML VIAL SC PRN (11:52)
--- NOTE | 2018-12-13 15:12 | ULT ---
Bilateral renal ultrasound CLINICAL INDICATION: Acute on chronic renal disease. COMPARISON: 04/27/2018. FINDINGS: Right kidney: Small in size measuring 7 cm x 4.2 cm. There is a small anechoic structure seen involvi ng the inferior pole right kidney measuring approximately 2.2 cm. While this has internal echogenic material, this is likely related to artifact and and this most likely represents a cyst. A larger cys t was seen in this region on prior renal sonogram as well as on prior CT abdomen on 09/23/2018. No additional renal mass, renal calculus, or hydronephrosis is seen on the right. Left kidney: There is no evidence of a renal mass, renal calculus, or hydronephrosis. The left kidney measures 9.4 cm x 3.9 cm. Urinary bladder: Within normal limits for degree of distention. IMPRESSION: 1. Right renal cyst 2. Small size of right kidney compared to the left kidney. 3. No evidence of hydronephrosis.
--- NOTE | 2018-12-13 17:38 | PDOC.PN ---
- Subjective Encounter Start Date: 12/13/18 Encounter Start Time: 10:15 Subjective: pt up in bed feels better, her itching has improved - Objective Resuscitation Status - Order Detail: 12/06/18 22:17 Resuscitation Status Routine Resuscitation Status: FULL: Full Resuscitation Vital Signs & Weight: Vital Signs (12 hours) Temp Pulse Pulse Pulse Resp BP BP 12/13/18 16:00 97.5 F L 66 16 12/13/18 15:11 63 12/13/18 13:50 66 66 164/70 H 164/66 H 12/13/18 12:00 97.2 F L 67 14 12/13/18 09:15 67 132/58 L 114/55 L 12/13/18 08:16 63 12/13/18 07:42 12/13/18 07:39 97.5 F L 63 16 BP Pulse Ox 12/13/18 16:00 164/70 H 96 12/13/18 15:11 12/13/18 13:50 12/13/18 12:00 114/50 L 95 12/13/18 09:15 12/13/18 08:16 12/13/18 07:42 96 12/13/18 07:39 130/58 L 96 Weight Admit Weight 130 lb Weight 160 lb 3.2 oz I&O: 12/12/18 12/13/18 12/14/18 06:59 06:59 06:59 Intake Total 2009 2949 Output Total 1100 900 Balance 910 0 Result Diagrams: 12/13/18 05:03 12/13/18 05:03 Additional Labs: Accuchecks 12/13/18 12/13/18 12/13/18 16:45 11:18 06:35 POC Glucose 98 294 H 113 H 12/13/18 12/12/18 05:12 20:37 POC Glucose 70 155 H Phys Exam - Physical Examination Neck: no nodes, no JVD, supple, full ROM Respiratory: no wheezing, no rales, no rhonchi, wheezing present, clear to auscultation bilateral Cardiovascular: RRR, no significant murmur, no rub, gallop, irregular Gastrointestinal: soft, non-tender, no distention, positive bowel sounds Deviation from normal: mild rash to upper ext, back and abdomen Dx/Plan (1) Acute metabolic encephalopathy Code(s): G93.41 - METABOLIC ENCEPHALOPATHY Status: Resolved Comment: Improving, will continue lactulose, rifaxmin and levofloxacin. Pt needs OT eval/tx. May eventually need HH or SNU. (2) Acute renal failure superimposed on stage 3 chronic kidney disease Code(s): N17.9 - ACUTE KIDNEY FAILURE, UNSPECIFIED; N18.3 - CHRONIC KIDNEY DISEASE, STAGE 3 (MODERATE) Status: Acute Comment: Hold diuretics and monitor (3) Allergic drug rash Code(s): L27.0 - GEN SKIN ERUPTION DUE TO DRUGS AND MEDS TAKEN INTERNALLY Status: Acute Comment: levaquin stopped. PRN Benadryl cream. Much better clinically (4) UTI (urinary tract infection) Status: Acute Comment: conwas on vancomycin (urine culture grew staphylococcus epidermidis resistant to levaquin but sensitive to Vancomycin) .will consider Change to PO Nitrofurantoin or Clarithromycin on DC Stop vancomycin today due to rash (5) Diabetes type 2, controlled Code(s): E11.9 - TYPE 2 DIABETES MELLITUS WITHOUT COMPLICATIONS Status: Chronic Qualifiers: Comment: Uncontrolled .restart levemir 10 units BID.cont ISS .Monitor - Plan Nitrofurantoin added -: pt's creatinine worsen, renal ultrasound ordered -: will monitor. -: pt feels better in regards to itching * . Review of Systems - Review of Systems Respiratory: negative: Cough, Dry, Shortness of Breath, Hemoptysis, SOB with Excertion, Pleuritic Pain, Sputum, Wheezing Cardiovascular: negative: chest pain, palpitations, orthopnea, paroxysmal nocturnal dyspnea, edema, light headedness, other Gastrointestinal: negative: Nausea, Vomiting, Abdominal Pain, Diarrhea, Constipation, Melena, Hematochezia, Other Skin: Rash - Medications/Allergies Allergies/Adverse Reactions: Allergies Allergy/AdvReac Type Severity Reaction Status Date / Time naproxen sodium [From Aleve] Allergy Mild Verified 12/06/18 23:06 ceftriaxone [From Rocephin] Allergy Unknown Verified 12/06/18 23:06 hydrocodone Allergy Verified 12/06/18 23:06 Medications: Current Medications Aspirin (Ecotrin) 81 mg PO DAILY [facility] Last Admin: 12/13/18 08:16 Dose: 81 mg Carvedilol (Coreg) 6.25 mg PO BID [facility] Last Admin: 12/13/18 08:16 Dose: 6.25 mg Dextrose/Water (Dextrose 50%) 25 gm SLOW IVP PRN PRN PRN Reason: Hypoglycemia Diphenhydramine HCl (Benadryl) 50 mg IVP Q6H PRN PRN Reason: Itching Last Admin: 12/11/18 20:03 Dose: 50 mg Famotidine (Pepcid) 20 mg PO Q24HR [facility] Last Admin: 12/12/18 21:51 Dose: 20 mg Glucagon (Glucagon) 1 mg IM PRN PRN PRN Reason: Hypoglycemia Hydralazine HCl (Apresoline) 10 mg SLOW IVP Q6H PRN PRN Reason: SBP Greater Than 170 Last Admin: 12/08/18 11:32 Dose: 10 mg Hydralazine HCl (Apresoline) 25 mg PO TID [facility] Last Admin: 12/13/18 15:11 Dose: 25 mg Hydroxyzine HCl (Atarax) 10 mg PO TIDPRN PRN PRN Reason: Itching Insulin Glargine 10 units/ (Miscellaneous Medication) 0.1 mls @ 0 mls/hr SC HS [facility] Last Admin: 12/12/18 21:51 Dose: 0.1 mls Insulin Glargine 10 units/ (Miscellaneous Medication) 0.1 mls @ 0 mls/hr SC QAM [facility] Last Admin: 12/13/18 08:41 Dose: 0.1 mls Dextrose/Water (D5w) 1,000 mls @ 0 mls/hr IV .Q0M PRN PRN Reason: Hypoglycemia Insulin Human Lispro (Humalog) 0 units SC .MODERATE SLIDING SC PRN; Protocol PRN Reason: MODERATE SLIDING SCALE Last Admin: 12/13/18 11:52 Dose: 6 unit Insulin Human Lispro (Humalog) 0 units SC .BEDTIME SLIDING SC PRN PRN Reason: Bedtime Correctional Scale Last Admin: 12/11/18 20:43 Dose: 4 unit Lactulose (Lactulose) 15 gm PO TID PRN PRN Reason: 2-3 STOOLS/DAY Levothyroxine Sodium (Synthroid) 75 mcg PO 0600 [facility] Last Admin: 12/13/18 05:16 Dose: 75 mcg Nitrofurantoin Macrocrystals (Macrobid) 100 mg PO BID [facility] Last Admin: 12/13/18 08:17 Dose: 100 mg Paroxetine HCl (Paxil) 10 mg PO HS [facility] Last Admin: 12/12/18 21:50 Dose: 10 mg Rifaximin (Xifaxan) 550 mg PO BID [facility] Last Admin: 12/13/18 08:17 Dose: 550 mg Sodium Chloride (Flush - Normal Saline) 10 ml IVF PRN PRN PRN Reason: Saline Flush Last Admin: 12/11/18 10:09 Dose: 10 ml Spironolactone (Aldactone) 100 mg PO DAILY [facility] Last Admin: 12/13/18 08:17 Dose: 100 mg Zinc Acetate/Diphenhydramine (Benadryl 2% Cream) 0 gm TOP QIDPRN PRN PRN Reason: Allergies Last Admin: 12/11/18 05:19 Dose: 1 applic
--- NOTE | 2018-12-13 18:33 | PRG ---
DATE OF SERVICE: 12/13/2018 SUBJECTIVE: The patient is seen and examined with no new complaint except generalized pruritic erythematous rashes noted with the following vital signs. OBJECTIVE: VITAL SIGNS: Afebrile, temperature 97.2, pulse 63, respiratory rate of 14, O2 saturation of 95%, and blood pressure 164/70. HEENT: Unremarkable. CARDIOVASCULAR: First and second heart sounds were heard. RESPIRATORY: Clear to auscultation. DIGESTIVE: Revealed a benign abdomen. EXTREMITIES: Showed no peripheral edema. SKIN: Showed pruritic erythematous rashes especially in the upper trunk. LABORATORY INVESTIGATION: Significant for creatinine that has jumped up to 3.37 again. Bicarb improved to 31. CBC showed increase in eosinophils. IMPRESSION: 1. Worsening acute on chronic kidney disease. 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 2. Metabolic acidosis, resolved. 3. Urinary tract infection, on treatment. PLAN: 1. I would strongly recommend deescalate in antibiotics exposure in this patient and identified one that the patient is reacting to rashes as well as the renal dysfunction . 2. IV fluids/bicarb supplementation no longer needed. 3. Renal supportive measures. 4. Ultrasound did show evidence of atrophic right kidney, possibly from old reflux disease versus renal artery disease. 5. Further management will be dependent on the clinical course. Job ID: [id number]
[2018-12-13] MEDS: PARoxetine 20 MG TAB PO SCH (20:55)
[2018-12-13] MEDS: Famotidine 20 MG TAB PO SCH (20:56)
[2018-12-14] MEDS: Levothyroxine Sodium 75 MCG TAB PO SCH (06:30)
[2018-12-14 07:29] LABS: Albumin 2.5 g/dL (3.4-4.8); Anion Gap 12 mmol/L (10-20); BUN (Urea Nitrogen) 68 mg/dL (9.8-20.1); Calc. Creatinine Clearance 18 mL/min (70-130); Calcium 7.4 mg/dL (7.8-10.44); Carbon Dioxide 28 mmol/L (23-31); Chloride 97 mmol/L (98-107); Estimated GFR-MDRD 15; Glucose 106 mg/dL (83-110); Phosphorus 4.3 mg/dL (2.3-4.7); Potassium 4.9 mmol/L (3.5-5.1); Sodium 132 mmol/L (136-145)
[2018-12-14 07:51] LABS: Hemoglobin 10.2 g/dL (12.0-16.0); Mean Corpuscular HGB CONC 32.2 g/dL (32.0-36.0); Mean Platelet Volume 7.9 fL (7.4-10.4); Platelet Count 109 thou/uL (130-400); RBC Distribution Width 16.1 % (11.5-14.5); Red Blood Cell (RBC) Count 3.63 mill/uL (4.20-5.40); White Blood Cell (WBC) Count 5.1 thou/uL (4.8-10.8)
[2018-12-14] MEDS: hydrALAZINE 25 MG TAB PO SCH ×3 (08:25→21:11)
[2018-12-14] MEDS: Aspirin 81 mg Enteric Coated Tablet PO SCH (08:25)
[2018-12-14] MEDS: Carvedilol 6.25 MG TAB PO SCH ×2 (08:25→21:11)
[2018-12-14] MEDS: Insulin Glargine 10 UNITS in Pre-Filled Syringe 1 EACH SC SCH ×2 (08:26→21:12)
[2018-12-14] MEDS: Nitrofurantoin Monohyd/M-Cryst 100 MG CAP PO SCH ×2 (08:26→21:11)
[2018-12-14 08:35] LABS: Band 4 % (5-11); Eosinophils 3 % (0-10); Lymphocytes 23 % (21-51); MDiff Complete? YES; Metamyelocyte 1 % (0-0); Monocytes 6 % (0-10); Neutrophil 62 % (42-75); Platelet Morphology Comment Appears Decreased; Polychromasia SLIGHT = 2-3 cells (100X) (0-2/hpf); Reactive Lymphocytes 1 % (0-10)
[2018-12-14] MEDS: HumaLOG 300 UNITS/3 ML VIAL SC PRN ×2 (11:58→17:59)
[2018-12-14 12:46] VITALS: BMI 26.6
[2018-12-14] MEDS: hydrALAZINE 20 MG/ML VIAL SLOW IVP PRN (12:56)
--- NOTE | 2018-12-14 13:02 | PDOC.PN ---
- Subjective Encounter Start Date: 12/14/18 Encounter Start Time: 10:30 Subjective: pt up in chair no complains - Objective Resuscitation Status - Order Detail: 12/06/18 22:17 Resuscitation Status Routine Resuscitation Status: FULL: Full Resuscitation Vital Signs & Weight: Vital Signs (12 hours) Temp Pulse Resp BP BP Pulse Ox 12/14/18 12:56 62 12/14/18 12:07 98.0 F 62 17 181/77 H 96 12/14/18 08:20 97 12/14/18 08:19 98.1 F 69 18 165/70 H 97 12/14/18 03:20 97.4 F L 67 14 131/58 L 96 Weight Admit Weight 130 lb Weight 160 lb I&O: 12/13/18 12/14/18 12/15/18 06:59 06:59 06:59 Intake Total 2950 1470 Output Total 900 1050 Balance 2050 420 Result Diagrams: 12/14/18 07:02 12/14/18 07:02 Additional Labs: Accuchecks 12/14/18 12/14/18 12/14/18 11:05 06:51 05:52 POC Glucose 247 H 118 H 61 L 12/13/18 12/13/18 20:56 16:45 POC Glucose 154 H 98 Phys Exam - Physical Examination Neck: no nodes, no JVD, supple, full ROM Respiratory: no wheezing, no rales, no rhonchi, wheezing present, clear to auscultation bilateral Cardiovascular: RRR, no significant murmur, no rub, gallop, irregular Gastrointestinal: soft, non-tender, no distention, positive bowel sounds Musculoskeletal: no edema, pulses present, edema present Deviation from normal: improving, she does have couple blisters on her back Dx/Plan (1) Acute metabolic encephalopathy Code(s): G93.41 - METABOLIC ENCEPHALOPATHY Status: Resolved Comment: Improving, will continue lactulose, rifaxmin and levofloxacin. Pt needs OT eval/tx. May eventually need HH or SNU. (2) Acute renal failure superimposed on stage 3 chronic kidney disease Code(s): N17.9 - ACUTE KIDNEY FAILURE, UNSPECIFIED; N18.3 - CHRONIC KIDNEY DISEASE, STAGE 3 (MODERATE) Status: Acute Comment: Hold diuretics and monitor (3) Allergic drug rash Code(s): L27.0 - GEN SKIN ERUPTION DUE TO DRUGS AND MEDS TAKEN INTERNALLY Status: Acute Comment: levaquin stopped. PRN Benadryl cream. Much better clinically (4) UTI (urinary tract infection) Status: Acute Comment: conwas on vancomycin (urine culture grew staphylococcus epidermidis resistant to levaquin but sensitive to Vancomycin) .will consider Change to PO Nitrofurantoin or Clarithromycin on DC Stop vancomycin today due to rash (5) Diabetes type 2, controlled Code(s): E11.9 - TYPE 2 DIABETES MELLITUS WITHOUT COMPLICATIONS Status: Chronic Qualifiers: Comment: Uncontrolled .restart levemir 10 units BID.cont ISS .Monitor - Plan spoke with nephrology, will restart rifampin -: if her creatinine is stable in am will discharge home -: pt's creatinine has improved * . Review of Systems - Review of Systems Respiratory: negative: Cough, Dry, Shortness of Breath, Hemoptysis, SOB with Excertion, Pleuritic Pain, Sputum, Wheezing Cardiovascular: negative: chest pain, palpitations, orthopnea, paroxysmal nocturnal dyspnea, edema, light headedness, other Gastrointestinal: negative: Nausea, Vomiting, Abdominal Pain, Diarrhea, Constipation, Melena, Hematochezia, Other - Medications/Allergies Allergies/Adverse Reactions: Allergies Allergy/AdvReac Type Severity Reaction Status Date / Time naproxen sodium [From Aleve] Allergy Mild Verified 12/06/18 23:06 ceftriaxone [From Rocephin] Allergy Unknown Verified 12/06/18 23:06 hydrocodone Allergy Verified 12/06/18 23:06 Medications: Current Medications Aspirin (Ecotrin) 81 mg PO DAILY [facility] Last Admin: 12/14/18 08:25 Dose: 81 mg Carvedilol (Coreg) 6.25 mg PO BID [facility] Last Admin: 12/14/18 08:25 Dose: 6.25 mg Dextrose/Water (Dextrose 50%) 25 gm SLOW IVP PRN PRN PRN Reason: Hypoglycemia Diphenhydramine HCl (Benadryl) 50 mg IVP Q6H PRN PRN Reason: Itching Last Admin: 12/11/18 20:03 Dose: 50 mg Famotidine (Pepcid) 20 mg PO Q24HR [facility] Last Admin: 12/13/18 20:56 Dose: 20 mg Glucagon (Glucagon) 1 mg IM PRN PRN PRN Reason: Hypoglycemia Hydralazine HCl (Apresoline) 10 mg SLOW IVP Q6H PRN PRN Reason: SBP Greater Than 170 Last Admin: 12/14/18 12:56 Dose: 10 mg Hydralazine HCl (Apresoline) 25 mg PO TID [facility] Last Admin: 12/14/18 08:25 Dose: 25 mg Hydroxyzine HCl (Atarax) 10 mg PO TIDPRN PRN PRN Reason: Itching Insulin Glargine 10 units/ (Miscellaneous Medication) 0.1 mls @ 0 mls/hr SC HS [facility] Last Admin: 12/13/18 20:56 Dose: 0.1 mls Insulin Glargine 10 units/ (Miscellaneous Medication) 0.1 mls @ 0 mls/hr SC QAM [facility] Last Admin: 12/14/18 08:26 Dose: 0.1 mls Dextrose/Water (D5w) 1,000 mls @ 0 mls/hr IV .Q0M PRN PRN Reason: Hypoglycemia Insulin Human Lispro (Humalog) 0 units SC .MODERATE SLIDING SC PRN; Protocol PRN Reason: MODERATE SLIDING SCALE Last Admin: 12/14/18 11:58 Dose: 4 unit Insulin Human Lispro (Humalog) 0 units SC .BEDTIME SLIDING SC PRN PRN Reason: Bedtime Correctional Scale Last Admin: 12/11/18 20:43 Dose: 4 unit Lactulose (Lactulose) 15 gm PO TID PRN PRN Reason: 2-3 STOOLS/DAY Levothyroxine Sodium (Synthroid) 75 mcg PO 0600 [facility] Last Admin: 12/14/18 06:30 Dose: 75 mcg Nitrofurantoin Macrocrystals (Macrobid) 100 mg PO BID [facility] Last Admin: 12/14/18 08:26 Dose: 100 mg Paroxetine HCl (Paxil) 10 mg PO [facility] Last Admin: 12/13/18 20:55 Dose: 10 mg Rifaximin (Xifaxan) 550 mg PO BID [facility] Sodium Chloride (Flush - Normal Saline) 10 ml IVF PRN PRN PRN Reason: Saline Flush Last Admin: 12/11/18 10:09 Dose: 10 ml Spironolactone (Aldactone) 100 mg PO DAILY [facility] Last Admin: 12/13/18 08:17 Dose: 100 mg Zinc Acetate/Diphenhydramine (Benadryl 2% Cream) 0 gm TOP QIDPRN PRN PRN Reason: Allergies Last Admin: 12/11/18 05:19 Dose: 1 applic
--- NOTE | 2018-12-14 15:13 | PQF ---
DATE: 12-14-18 ATTN: DR. GLENN JACKSON Please exercise your independent, professional judgment in responding to the clarification form. Clinical indicators are provided on the bottom of this form for your review Please check appropriate box(s): HEART FAILURE: A. TYPE: [ ] Systolic / HFrEF [x ] Diastolic / HFpEF [ ] Combined Systolic / Diastolic B. ACUITY [ ] Acute [ ] Acute on Chronic [ x ] Chronic [ ] Other diagnosis [ ] Unable to determine In addition, please specify: Present on Admission (POA): [ ] Yes [x ] No [ ] Unable to determine For continuity of documentation, please document condition throughout progress notes and discharge summary. Thank You. CLINICAL INDICATORS - SIGNS / SYMPTOMS / LABS: ER HX: HX OF UTI, CAD, CHF, DM 2, HTN BNP: 12-09-18: 241.5 RISKS: ER HX: HX OF UTI, CAD, CHF, DM 2, HTN TREATMENTS: MAR: COREG PO (This form is maintained as a part of the permanent medical record) 2014 [employer]. All Rights Reserved [email or web address] Office: [phone] [facility] CENTERYaima
--- NOTE | 2018-12-14 20:56 | PRG ---
DATE OF SERVICE: 12/14/2018 SUBJECTIVE: The patient is seen and examined. Seems to be doing much better, noted with the following vital signs. OBJECTIVE: VITAL SIGNS: Afebrile, temperature 97.8, pulse 61, respiratory rate of 18, O2 saturations are 94% with blood pressure 154/63. HEENT: Unremarkable. Moist oral mucosa. NECK: Supple. No conjunctival injection or icterus. CARDIOVASCULAR SYSTEM: First and second heart sounds were heard. RESPIRATORY SYSTEM: Clear to auscultation. DIGESTIVE SYSTEM: Revealed a benign abdomen with positive bowel sounds. EXTREMITIES: No peripheral edema. SKIN: No new gross rash. Shows the erythematous rash that is already improving. 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 One of the antibodies of the patient got exposed on presentation. In any case, this seems to be improving. PLAN: 1. The patient is to continue with current renal supportive measures. 2. Outpatient Nephrology followup strongly recommended, status post discharge. Job ID: [id number]
[2018-12-14] MEDS: Rifaximin 550 MG TAB PO SCH (21:11)
[2018-12-14] MEDS: Famotidine 20 MG TAB PO SCH (21:11)
[2018-12-14] MEDS: PARoxetine 20 MG TAB PO SCH (21:11)
[2018-12-15] MEDS: Levothyroxine Sodium 75 MCG TAB PO SCH (05:21)
[2018-12-15 06:00] LABS: Albumin 2.8 g/dL (3.4-4.8); Anion Gap 12 mmol/L (10-20); BUN (Urea Nitrogen) 67 mg/dL (9.8-20.1); BUN/Creatinine Ratio 24.63; Calc. Creatinine Clearance 20 mL/min (70-130); Calcium 8.3 mg/dL (7.8-10.44); Carbon Dioxide 30 mmol/L (23-31); Chloride 100 mmol/L (98-107); Estimated GFR-MDRD 17; Phosphorus 4.3 mg/dL (2.3-4.7); Potassium 4.9 mmol/L (3.5-5.1); Sodium 137 mmol/L (136-145)
[2018-12-15 06:02] LABS: Glucose 47 mg/dL (83-110)
[2018-12-15 06:46] LABS: Band 8 % (5-11); Eosinophils 6 % (0-10); Hemoglobin 10.7 g/dL (12.0-16.0); Lymphocytes 26 % (21-51); MDiff Complete? YES; Mean Corpuscular HGB CONC 32.5 g/dL (32.0-36.0); Mean Corpuscular Hemoglobin 28.6 pg (27.0-31.0); Mean Corpuscular Volume 88.2 fL (78.0-98.0); Monocytes 10 % (0-10); Neutrophil 50 % (42-75); Platelet Count 141 thou/uL (130-400); RBC Distribution Width 16.3 % (11.5-14.5); Red Blood Cell (RBC) Count 3.73 mill/uL (4.20-5.40); White Blood Cell (WBC) Count 7.9 thou/uL (4.8-10.8)
[2018-12-15] MEDS: hydrALAZINE 20 MG/ML VIAL SLOW IVP PRN (07:44)
[2018-12-15] MEDS: Rifaximin 550 MG TAB PO SCH (08:39)
[2018-12-15] MEDS: hydrALAZINE 25 MG TAB PO SCH ×2 (08:39→14:18)
[2018-12-15] MEDS: Nitrofurantoin Monohyd/M-Cryst 100 MG CAP PO SCH (08:39)
[2018-12-15] MEDS: Insulin Glargine 10 UNITS in Pre-Filled Syringe 1 EACH SC SCH (08:40)
[2018-12-15] MEDS: Carvedilol 6.25 MG TAB PO SCH (08:40)
[2018-12-15] MEDS: Aspirin 81 mg Enteric Coated Tablet PO SCH (08:41)
[2018-12-15] MEDS: Spironolactone 100 MG TAB PO SCH (09:17)
[2018-12-15] MEDS: HumaLOG 300 UNITS/3 ML VIAL SC PRN (11:40)
[2018-12-15 15:43] VITALS: TEMP 97.7
[2018-12-15] MEDS ORDERED: cloNIDine 0.1 MG TAB PO SCH (16:15)
[2018-12-15 16:23] VITALS: BP 152/67
--- NOTE | 2018-12-15 20:48 | PRG ---
DATE OF SERVICE: 12/15/2018 SUBJECTIVE: The patient is seen and examined. Seems to be doing much better. Noted to be hemodynamically stable. OBJECTIVE: HEENT: Unremarkable. CARDIOVASCULAR SYSTEM: First and second heart sounds were heard. RESPIRATORY SYSTEM: Clear to auscultation. DIGESTIVE SYSTEM: Revealed a benign abdomen with positive bowel sounds. EXTREMITIES: No peripheral edema. SKIN: No new gross rash. LYMPHATICS: No peripheral lymphadenopathy. IMPRESSION: 1. 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 2. Baseline chronic kidney disease, stage 3. PLAN: 1. The patient to continue with renal supportive measures. 2. Close outpatient Nephrology followup, status post discharge strongly recommended. Job ID: [id number]
== END 2018-12-15 16:20 | disposition home or self-care (01) | DRG 441 ==
LOC: ERS 19:12 → 2NO 23:04
PROVIDERS: ADMIT Internal Medicine; ATTEND Internal Medicine
DX: K72.90 Hepatic failure, unspecified without coma (principal); G93.41 Metabolic encephalopathy; N39.0 Urinary tract infection, site not specified; N17.9 Acute kidney failure, unspecified; I13.0 Hypertensive heart and chronic kidney disease with heart failure and stage 1 through stage 4 chronic kidney disease, or unspecified chronic kidney disease; E72.4 Disorders of ornithine metabolism; K76.6 Portal hypertension; Z51.5 Encounter for palliative care; E87.2 Acidosis; E87.1 Hypo-osmolality and hyponatremia; I50.32 Chronic diastolic (congestive) heart failure; E11.22 Type 2 diabetes mellitus with diabetic chronic kidney disease; I25.10 Atherosclerotic heart disease of native coronary artery without angina pectoris; E87.5 Hyperkalemia; E03.9 Hypothyroidism, unspecified; N18.3 Chronic kidney disease, stage 3 (moderate); D63.1 Anemia in chronic kidney disease; K74.60 Unspecified cirrhosis of liver; B95.7 Other staphylococcus as the cause of diseases classified elsewhere; Z16.29 Resistance to other single specified antibiotic; I35.0 Nonrheumatic aortic (valve) stenosis; N05.8 Unspecified nephritic syndrome with other morphologic changes; L27.0 Generalized skin eruption due to drugs and medicaments taken internally; T36.8X5A Adverse effect of other systemic antibiotics, initial encounter; Z88.1 Allergy status to other antibiotic agents; Z95.1 Presence of aortocoronary bypass graft; Z90.710 Acquired absence of both cervix and uterus; Z88.5 Allergy status to narcotic agent; Z79.82 Long term (current) use of aspirin; Z79.899 Other long term (current) drug therapy
CPT/HCPCS: 36415; 36416; 70450; 71045; 76770; 80048; 80053; 80069; 80202; 81003; 81015; 82140; 83605; 83880; 84443; 84484; 85025; 85610; 85730; 87040; 87077; 87086; 87186; 93005; 94760; 96361; 96374; 96375; A4353; J0360; J1200; J1815; J1956; J2405; J2920; J3370; J7050; J7070; S0028

== ENCOUNTER 2019-01-06 15:47 | Emergency (ER) | payer MEDICARE ==
[2019-01-06 16:20] LABS: #Basophils 0.1 thou/uL (0.0-0.2); #Eosinphils 0.4 thou/uL (0.0-0.7); #Lymphocytes 1.6 thou/uL (1.20-3.40); #Monocytes 0.6 thou/uL (0.11-0.59); #Neutrophils 1.7 thou/uL (1.40-6.50); %Basophils 1.2 % (0.0-1.0); %Eosinophils 9.1 % (0.0-10.0); %Lymphocytes 36.4 % (21.0-51.0); %Monocytes 13.3 % (0.0-10.0); Hemoglobin 9.4 g/dL (12.0-16.0); Mean Corpuscular HGB CONC 33.2 g/dL (32.0-36.0); Mean Corpuscular Hemoglobin 29.6 pg (27.0-31.0); Mean Corpuscular Volume 89.1 fL (78.0-98.0); Mean Platelet Volume 7.6 fL (7.4-10.4); Platelet Count 150 thou/uL (130-400); Red Blood Cell (RBC) Count 3.18 mill/uL (4.20-5.40); White Blood Cell (WBC) Count 4.3 thou/uL (4.8-10.8)
--- NOTE | 2019-01-06 16:29 | RAD ---
XR Chest 1 View Portable HISTORY: Abnormal labs COMPARISON: 12/06/2018 FINDINGS: Changes of median sternotomy are again seen. The heart is enlarged. The aorta is tortuous. The lungs are well expanded without lobar consolidation,pneumothoraces, saleem pulmonary edema or pleural effusions. There is mild prominence of the pulmonary vascularity.
[2019-01-06 16:49] LABS: ALT (SGPT) 15 U/L (8-55); AST (SGOT) 25 U/L (5-34); Albumin 3.4 g/dL (3.4-4.8); Alkaline Phosphatase 93 U/L (40-150); Anion Gap 11 mmol/L (10-20); BUN (Urea Nitrogen) 49 mg/dL (9.8-20.1); Bilirubin, Total 0.3 mg/dL (0.2-1.2); CK (CPK) 67 U/L (29-168); Calc. Creatinine Clearance 0 mL/min (70-130); Calcium 8.8 mg/dL (7.8-10.44); Carbon Dioxide 17 mmol/L (23-31); Chloride 113 mmol/L (98-107); Estimated GFR-MDRD 32; Globulin 3.9 g/dL (2.4-3.5); Glucose 168 mg/dL (83-110); Lipase 21 U/L (8-78); Potassium 5.8 mmol/L (3.5-5.1); Protein, Total 7.3 g/dL (6.0-8.3); Sodium 135 mmol/L (136-145)
--- NOTE | 2019-01-08 16:23 | EKG ---
Test Reason : Blood Pressure : / mmHG Vent. Rate : 067 BPM Atrial Rate : 067 BPM P-R Int : 210 ms QRS Dur : 118 ms QT Int : 452 ms P-R-T Axes : 063 -14 109 degrees QTc Int : 477 ms Sinus rhythm with 1st degree A-V block Incomplete left bundle branch block T wave abnormality, consider lateral ischemia Abnormal ECG Confirmed by EDWARD FALLON, FARHAT ([id number]), makeup editor RAAD OLIVARES ([id number]) on 01/08/2019 4:22:45 PM Referred By: Confirmed By:FARHAT LEON MD
== END 2019-01-06 17:58 | disposition home or self-care (01) ==
LOC: ERS 15:47
DX: E87.5 Hyperkalemia (principal); R79.89 Other specified abnormal findings of blood chemistry; I25.10 Atherosclerotic heart disease of native coronary artery without angina pectoris; E11.9 Type 2 diabetes mellitus without complications; I10 Essential (primary) hypertension; Z79.899 Other long term (current) drug therapy; Z79.82 Long term (current) use of aspirin; Z79.4 Long term (current) use of insulin
CPT/HCPCS: 36415; 71045; 80053; 82140; 82550; 83690; 83880; 84484; 85025; 93005; 94760

== ENCOUNTER 2019-03-22 17:56 | Inpatient (IN) | payer MEDICARE ==
[2019-03-22 18:31] LABS: #Basophils 0.1 thou/uL (0.0-0.2); #Eosinphils 0.1 thou/uL (0.0-0.7); #Lymphocytes 1.2 thou/uL (1.20-3.40); #Monocytes 0.7 thou/uL (0.11-0.59); #Neutrophils 3.4 thou/uL (1.40-6.50); %Basophils 1.2 % (0.0-1.0); %Eosinophils 1.7 % (0.0-10.0); %Lymphocytes 22.7 % (21.0-51.0); %Monocytes 12.8 % (0.0-10.0); %Neutrophils 61.7 % (42.0-75.0); Hemoglobin 10.7 g/dL (12.0-16.0); Mean Corpuscular HGB CONC 33.3 g/dL (32.0-36.0); Mean Corpuscular Hemoglobin 30.6 pg (27.0-31.0); Mean Corpuscular Volume 91.9 fL (78.0-98.0); Mean Platelet Volume 7.9 fL (7.4-10.4); Platelet Count 138 thou/uL (130-400); RBC Distribution Width 12.7 % (11.5-14.5); White Blood Cell (WBC) Count 5.5 thou/uL (4.8-10.8)
--- NOTE | 2019-03-22 18:31 | RAD ---
RADIOGRAPH CHEST 1 VIEW: DATE: 03/22/2019 HISTORY: 79 year old female with generalized weakness. FINDINGS: There is cardiomegaly. There is no evidence of airspace density, pulmonary edema, or pneumothorax. Th e lateral costophrenic angles are not effaced. Sternotomy wires. No interval change since 01/06/2019. IMPRESSION: 1) No acute pulmonary findings. 2) cardiomegaly without congestive heart failure. 3) evidence of previous open-heart surgery.
[2019-03-22 18:57] LABS: ALT (SGPT) 9 U/L (8-55); AST (SGOT) 20 U/L (5-34); Albumin 3.9 g/dL (3.4-4.8); Alkaline Phosphatase 86 U/L (40-110); Anion Gap 17 mmol/L (10-20); BUN (Urea Nitrogen) 67 mg/dL (9.8-20.1); Bilirubin, Total 0.7 mg/dL (0.2-1.2); CK (CPK) 70 U/L (29-168); Calc. Creatinine Clearance 0 mL/min (70-130); Calcium 9.8 mg/dL (7.8-10.44); Carbon Dioxide 24 mmol/L (23-31); Chloride 101 mmol/L (98-107); Estimated GFR-MDRD 15; Globulin 4.4 g/dL (2.4-3.5); Glucose 259 mg/dL (83-110); Lipase 7 U/L (8-78); Potassium 4.9 mmol/L (3.5-5.1); Protein, Total 8.3 g/dL (6.0-8.3); Sodium 137 mmol/L (136-145)
[2019-03-22 19:17] LABS: CKMB 1.9 ng/mL (0-6.6)
[2019-03-22] MEDS ORDERED: Aspirin Chewable 81 MG TAB ONE (20:06)
[2019-03-22 21:37] LABS: Bilirubin Negative (Negative); Blood, Urine Trace (Negative); Clarity Turbid (Clear); Glucose, Urine (Dipstick) Normal (Negative); Leukocyte 500 Leu/uL (Negative); Nitrite 1+ (Negative); Protein, Urine (Dipstick) Negative (Neg-Trace); RBC/HPF 0-3 HPF (0-3); Urobilinogen Normal mg/dL (Less than 2); WBC/HPF Greater than 50 HPF (0-3)
[2019-03-22 21:45] LABS: Bacteria/HPF 2+ HPF (None Seen)
[2019-03-22 21:46] LABS: Yeast-Budding None Seen HPF (None Seen)
[2019-03-22] MEDS ORDERED: Levofloxacin 500 mg/D5W 100 ml Premix Bag ONE (22:08)
[2019-03-22] MEDS ORDERED: Sodium Chloride 0.9% 1,000 ML IV SCH (22:45)
[2019-03-23] MEDS ORDERED: Sodium Chloride 0.9% 1,000 ML IV SCH (03:07)
[2019-03-23] MEDS ORDERED: HumaLOG 300 UNITS/3 ML VIAL SC PRN ×2 (05:02→05:09)
[2019-03-23] MEDS ORDERED: Dextrose 50% Abboject 50 ML SYRINGE SLOW IVP PRN (05:02)
[2019-03-23] MEDS ORDERED: Dextrose 5% in Water 1,000 ML IV PRN (05:02)
--- NOTE | 2019-03-23 05:46 | HP ---
PRIMARY CARE PHYSICIAN: Dr. Pedro Amezcua. CHIEF COMPLAINT: Generalized weakness. HISTORY OF PRESENT ILLNESS: Ms. Sung is a pleasant 79-year-old woman, who has a past medical history of hyperammonemia of unknown etiology, hypertension, CKD, coronary artery disease, and diabetes mellitus. She is on lactulose and reports fluctuating bowel movements at baseline with increased watery stools more recently. She states she was in her usual state of health until yesterday when she was noted sleeping later than normal. She states she usually wakes up between 7 and 8 a.m.; however, yesterday was asleep until 1 p.m. and felt generally weak upon awakening. Her was alarmed and therefore opted to bring her in to the emergency department. She underwent laboratory studies, which were notable for a hemoglobin of 10.7, which appears to be at baseline. White blood count was unremarkable. Renal function was significantly worse from baseline. She had a creatinine of 3.01 and in December, it was 1.55. Her GFR which was 32 in December, is now 15. Lactic acid was normal. LFTs unremarkable. Her ammonia level was 87. Initial troponin was indeterminate. CK normal and BNP was 724.1. She had a urinalysis done, which did show trace blood, positive for nitrites, showed 500 leukocyte esterase, greater than 50 white blood cells, 11 to 20 squamous epithelial cells, and 4 to 6 transitional epithelial cells with 2+ bacteria. It is possibly a contaminated sample. Urine culture is pending. The patient has been afebrile. In the emergency department , she had a dose of lactulose 30 mL and given 2 L of IV fluids. She was given aspirin 324 mg given the indeterminate troponin with plans to continue to trend her troponins. She was also started on antibiotics for UTI with Levaquin. At this present time, the patient states she feels well and is without any complaints. She does have some mild discomfort in her neck, which she states is due to the bed. She denies having any nausea, vomiting, or abdominal pain. No chest pain, palpitations, or shortness of breath. No headaches or dizziness. REVIEW OF SYSTEMS: All other review of systems are negative. Of note, she has not had any loose stools since arriving to the emergency department. PAST MEDICAL HISTORY: 1. Hyperammonemia, unknown etiology. 2. Diabetes mellitus. 3. Hypertension. 4. CKD. 5. Psoriasis. 6. CAD. PAST SURGICAL HISTORY: 1. CABG. 2. Hysterectomy. 3. Ankle surgery. 4. Cardiac ablation. 5. Previous liver biopsy. FAMILY HISTORY: Noncontributory. SOCIAL HISTORY: The patient lives with her . She states she has a maid that assists her with self-care. Denies any alcohol use or tobacco use. ALLERGIES: 1. NAPROXEN. 2. CEFTRIAXONE. 3. HYDROCODONE. CURRENT MEDICATIONS: 1. Amlodipine. 2. Aspirin. 3. Calcium carbonate/vitamin. 4. Ferrous sulfate. 5. Furosemide. 6. Hydralazine. 7. Hydroxyzine. 8. Levothyroxine. 9. Paroxetine. 10. Spironolactone. 11. Coreg. 12. Insulin. 13. Lactulose. 14. Rifaximin. PHYSICAL EXAMINATION: GENERAL: The patient appears well developed, well nourished, is in no acute distress. VITAL SIGNS: Temperature 96.3, pulse 60, respirations 16, O2 saturation 100% on room air, blood pressure 168/70. HEENT: Normocephalic and atraumatic. Pupils are equal, round, and reactive to light. Sclerae without icterus. Oropharynx is clear. NECK: Supple without lymphadenopathy. LUNGS: Clear to auscultation bilaterally without wheezes, rales, or rhonchi. CARDIAC: Regular rate and rhythm without audible murmurs, rubs, or gallops. ABDOMEN: Soft, nontender, nondistended. Normoactive bowel sounds present. EXTREMITIES: No lower leg swelling or edema. NEUROLOGIC: Alert and oriented x3. SKIN: Without rash or jaundice. INVESTIGATIONS: As mentioned above in the HPI. IMPRESSION AND PLAN: Ms. Sung is a very pleasant 79-year-old woman, who has been referred for management of the following. 1. Generalized weakness. Likely associated with dehydration secondary to diarrhea. The patient states she has had diarrhea. The patient states she slept longer than she normally would have. No signs of sepsis. White count normal and lactic acid unremarkable. Weakness is likely combination of the dehydration as well as underlying urinary tract infection. 2. Acute on chronic renal insufficiency. We will give gentle hydration and continue to monitor renal function. 3. Urinary tract infection. We will continue Levaquin, Pharmacy to dose given creatinine clearance of 15. Has received 750 mg x1, likely to receive 500 mg q.48 hours until renal function improves. As stated, Pharmacy to dose. 4. Diarrhea. The patient with chronic diarrhea since starting lactulose. Orders have been placed to test stool if she has recurring watery stools to rule out C diff. 5. Diabetes mellitus. Monitor glucose and initiate insulin sliding scale. 6. Hypertension. Resume home medications and monitor blood pressure. 7. Hyperammonemia. Stable. Continue lactulose. 8. Code status full. Her surrogate decision maker is her , Mr. Orlando Sung. Case discussed with Dr. Baker, who agrees with plan of care as described above. Job ID: [id number] [facility]
[2019-03-23] MEDS: Insulin Glargine 10 UNITS in Pre-Filled Syringe 1 EACH SC SCH (08:46)
[2019-03-23] MEDS: Amlodipine 10 MG TAB PO SCH (08:46)
[2019-03-23] MEDS: Ferrous Sulfate 325 MG TAB PO SCH (08:47)
[2019-03-23] MEDS: hydrALAZINE 25 MG TAB PO SCH ×3 (08:47→21:12)
[2019-03-23] MEDS: Calcium Carbonate + Vit D 1 TAB PO SCH (08:47)
[2019-03-23] MEDS: Rifaximin 550 MG TAB PO SCH ×2 (08:47→21:12)
[2019-03-23] MEDS: Levothyroxine Sodium 88 MCG TAB PO SCH (08:48)
[2019-03-23] MEDS: Carvedilol 6.25 MG TAB PO SCH ×2 (08:48→21:12)
[2019-03-23] MEDS ORDERED: FLU VACC TS2019-20(65YR UP)/PF 180 MCG/0.5 ML SYRINGE IM ONE (09:00)
[2019-03-23] MEDS ORDERED: Non-Formulary Item 1 EACH (Insulin Detemir [Levemir] 10 UNIT) SQ SCH (09:00)
[2019-03-23] MEDS: Aspirin 81 mg Enteric Coated Tablet PO SCH (10:16)
[2019-03-23] MEDS: HumaLOG 300 UNITS/3 ML VIAL SC PRN ×2 (12:45→16:51)
[2019-03-23 19:03] LABS: Anion Gap 14 mmol/L (10-20); BUN (Urea Nitrogen) 54 mg/dL (9.8-20.1); Calc. Creatinine Clearance 21 mL/min (70-130); Calcium 8.9 mg/dL (7.8-10.44); Carbon Dioxide 20 mmol/L (23-31); Chloride 109 mmol/L (98-107); Estimated GFR-MDRD 21; Glucose 157 mg/dL (83-110); Potassium 4.4 mmol/L (3.5-5.1); Sodium 139 mmol/L (136-145)
[2019-03-23 19:10] LABS: Hemoglobin 9.5 g/dL (12.0-16.0); Lymphocytes 14 % (21-51); MDiff Complete? YES; Mean Corpuscular HGB CONC 33.3 g/dL (32.0-36.0); Mean Platelet Volume 7.8 fL (7.4-10.4); Monocytes 6 % (0-10); Neutrophil 80 % (42-75); Platelet Count 116 thou/uL (130-400); Platelet Morphology Comment Appears Decreased; RBC Distribution Width 12.7 % (11.5-14.5); Red Blood Cell (RBC) Count 3.06 mill/uL (4.20-5.40); White Blood Cell (WBC) Count 4.2 thou/uL (4.8-10.8)
[2019-03-23] MEDS ORDERED: INSULIN DETEMIR 5 UNIT SQ SCH (21:00)
[2019-03-23] MEDS: Insulin Glargine 5 UNITS in Pre-Filled Syringe 1 EACH SC SCH (21:11)
[2019-03-23] MEDS: PARoxetine 20 MG TAB PO SCH (21:12)
[2019-03-24 05:19] LABS: Albumin 3.3 g/dL (3.4-4.8); Anion Gap 13 mmol/L (10-20); BUN (Urea Nitrogen) 50 mg/dL (9.8-20.1); BUN/Creatinine Ratio 25.13; Calc. Creatinine Clearance 23 mL/min (70-130); Calcium 8.7 mg/dL (7.8-10.44); Carbon Dioxide 20 mmol/L (23-31); Chloride 109 mmol/L (98-107); Estimated GFR-MDRD 24; Glucose 75 mg/dL (83-110); Phosphorus 3.2 mg/dL (2.3-4.7); Potassium 4.4 mmol/L (3.5-5.1); Sodium 138 mmol/L (136-145)
[2019-03-24] MEDS: Levothyroxine Sodium 88 MCG TAB PO SCH (05:53)
--- NOTE | 2019-03-24 09:37 | CON ---
DATE OF CONSULTATION: 03/23/2019 CONSULTING PHYSICIAN: Rabia Ramírez MD REQUESTING PHYSICIAN: [facility]. REASON FOR CONSULTATION: Acute on chronic kidney disease. IMPRESSION: Acute on chronic kidney disease, which is likely multifactorial in origin including but not limited to pre-renal in the context of increased gastrointestinal loss, diarrhea context of urinary tract infection. PLAN: 1. Gentle rehydration. 2. Renally dose all medications and avoid potentially nephrotoxic agents. 3. Monitor the renal function closely if the patient responding well to gentle hydration. 4. Further management will be dependent on the clinical course. HISTORY OF PRESENT ILLNESS: History is that of a 79-year-old female patient, who presented here with generalized weakness. The patient does carry a past medical history significant for recurrent hyperammonemia of unclear etiology, hypertension, chronic kidney disease stage 3, coronary artery disease, and type 2 diabetes mellitus, presented here with weakness and sleeping longer, presented to the ER and noted with elevated creatinine of 1.63, with baseline creatinine of 1.5 with chronic kidney disease stage 3. Investigation includes urinalysis showed urinary tract infection. As a result of the deterioration in the renal function, Renal in the management of this case. PAST MEDICAL HISTORY: As documented in the body of the history. FAMILY HISTORY: Not significantly related to present illness. SOCIAL HISTORY: Denies alcohol, tobacco, or illicit drug use. , lives with the . ALLERGIES: TO NAPROXEN, CEFTRIAXONE, AND HYDROCODONE. REVIEW OF SYSTEMS: As documented in the body of the history. PHYSICAL EXAMINATION: VITAL SIGNS: Noted to be afebrile with a temperature 97, pulse 60, respiratory rate 20, sats 99% on room air, blood pressure 148/65. HEENT: Unremarkable. CARDIOVASCULAR SYSTEM: First and second heard sounds were heard. RESPIRATORY SYSTEM: Clear to auscultation. DIGESTIVE SYSTEM: Revealed a benign abdomen with positive bowel sounds. EXTREMITIES: No peripheral edema. SKIN: No new gross rash. LYMPHATICS: No peripheral lymphadenopathy. SUMMARY: A 79-year-old female patient, who presented here with increased lethargy, brought in with evidence of urinary tract infection and for significant drop in renal function, thus the need for Renal consultation. Thank you for this consultation. We will follow with you. Job ID: [id number]
[2019-03-24] MEDS: Aspirin 81 mg Enteric Coated Tablet PO SCH (09:49)
[2019-03-24] MEDS: Calcium Carbonate + Vit D 1 TAB PO SCH (09:49)
[2019-03-24] MEDS: Carvedilol 6.25 MG TAB PO SCH ×2 (09:49→20:41)
[2019-03-24] MEDS: Rifaximin 550 MG TAB PO SCH ×2 (09:49→20:42)
[2019-03-24] MEDS: Amlodipine 10 MG TAB PO SCH (09:49)
[2019-03-24] MEDS: Insulin Glargine 10 UNITS in Pre-Filled Syringe 1 EACH SC SCH (09:50)
[2019-03-24] MEDS: Ferrous Sulfate 325 MG TAB PO SCH (09:50)
[2019-03-24] MEDS: hydrALAZINE 25 MG TAB PO SCH ×3 (09:50→20:41)
--- NOTE | 2019-03-24 11:55 | PDOC.HOSPP ---
- Subjective Encounter Date: 03/24/19 Encounter Time: 11:53 Subjective: doing better, eager to go home - Objective Vital Signs & Weight: Vital Signs (12 hours) Temp Pulse Resp BP Pulse Ox 03/24/19 09:50 64 03/24/19 09:49 64 03/24/19 09:48 98.1 F 64 18 172/85 H 96 03/24/19 04:00 97.8 F 60 20 148/65 H 99 Weight Weight 140 lb 9.6 oz I&O: 03/23/19 03/24/19 03/25/19 06:59 06:59 06:59 Intake Total 1265 203 Balance 1265 203 Result Diagrams: 03/23/19 18:34 03/24/19 04:36 Additional Labs: Accuchecks 03/24/19 03/24/19 03/23/19 10:55 05:29 20:28 POC Glucose 200 H 75 174 H 03/23/19 03/23/19 16:52 11:01 POC Glucose 204 H 199 H Hospitalist ROS - Medication Medications: Active Medications Generic Name Dose Route Start Last Admin Trade Name Jomar PRN Reason Stop Dose Admin Amlodipine Besylate 10 mg 03/23/19 09:00 03/24/19 09:49 Norvasc PO 10 mg DAILY [facility] Administration Aspirin 81 mg 03/23/19 09:00 03/24/19 09:49 Ecotrin PO 81 mg DAILY [facility] Administration Calcium/Vitamin D 1 tab 03/23/19 09:00 03/24/19 09:49 Caltrate 600 + Vit D PO 1 tab DAILY [facility] Administration Carvedilol 6.25 mg 03/23/19 09:00 03/24/19 09:49 Coreg PO 6.25 mg BID [facility] Administration Ferrous Sulfate 325 mg 03/23/19 08:00 03/24/19 09:50 Feosol PO 325 mg QAM-WM [facility] Administration Hydralazine HCl 50 mg 03/23/19 09:00 03/24/19 09:50 Apresoline PO 50 mg TID [facility] Administration Insulin Glargine 5 units/ 0.05 mls @ 0 mls/hr 03/23/19 21:00 03/23/19 21:11 Miscellaneous Medication SC 0.05 mls HS [facility] Administration Insulin Glargine 10 units/ 0.1 mls @ 0 mls/hr 03/23/19 09:00 03/24/19 09:50 Miscellaneous Medication SC 0.1 mls QAM [facility] Administration Insulin Human Lispro 0 units 03/23/19 05:02 03/23/19 16:51 Humalog SC 3 units .MILD SLIDING SCALE PRN Administration Mild Correctional Scale Lactulose 20 gm 03/23/19 09:00 03/24/19 09:50 Lactulose PO 20 gm BID [facility] Administration Levothyroxine Sodium 88 mcg 03/23/19 06:00 03/24/19 05:53 Synthroid PO 88 mcg 0600 [facility] Administration Paroxetine HCl 10 mg 03/23/19 21:00 03/23/19 21:12 Paxil PO 10 mg HS [facility] Administration Rifaximin 550 mg 03/23/19 09:00 03/24/19 09:49 Xifaxan PO 550 mg BID [facility] Administration - Exam General Appearance: NAD, awake alert, ill appearing Eye: PERRL, anicteric sclera, scleral icterus ENT: normocephalic atraumatic, no oropharyngeal lesions, moist mucosa, dry oral mucosa Neck: supple, symmetric, no JVD, no thyromegaly, no lymphadenopathy, no carotid bruit, JVD Heart: RRR, no murmur, no gallops, no rubs, normal peripheral pulses, irregular , diminshed peripheral pulses, murmur present, II/IV, III/IV Respiratory: CTAB, no wheezes, no rales, no ronchi, normal chest expansion, no tachypnea, normal percussion, rales, rhonchi, tachypneic, wheezes Gastrointestinal: soft, non-tender, non-distended, normal bowel sounds, no palpable masses, no hepatomegaly, no splenomegaly, no bruit, no guarding, no rigidity, tender to palpation, distended, diminished bowl sounds, voluntary guarding Extremities: no cyanosis, no clubbing, no edema, 1+ LE edema, 2+ LE edema, clubbing Hosp A/P (1) Acute renal failure superimposed on stage 3 chronic kidney disease Code(s): N17.9 - ACUTE KIDNEY FAILURE, UNSPECIFIED; N18.3 - CHRONIC KIDNEY DISEASE, STAGE 3 (MODERATE) Status: Acute - Plan monitor labs, ambulate the patient. d/c IVF.
[2019-03-24 12:14] LABS: #Eosinphils 0.1 thou/uL (0.0-0.7); #Lymphocytes 1.1 thou/uL (1.20-3.40); #Monocytes 0.9 thou/uL (0.11-0.59); #Neutrophils 4.5 thou/uL (1.40-6.50); %Basophils 0.5 % (0.0-1.0); %Eosinophils 1.5 % (0.0-10.0); %Lymphocytes 16.1 % (21.0-51.0); %Monocytes 13.5 % (0.0-10.0); %Neutrophils 68.3 % (42.0-75.0); Hemoglobin 10.4 g/dL (12.0-16.0); Mean Corpuscular HGB CONC 32.9 g/dL (32.0-36.0); Mean Corpuscular Hemoglobin 30.8 pg (27.0-31.0); Mean Corpuscular Volume 93.6 fL (78.0-98.0); Mean Platelet Volume 7.6 fL (7.4-10.4); Platelet Count 131 thou/uL (130-400); RBC Distribution Width 12.8 % (11.5-14.5); Red Blood Cell (RBC) Count 3.39 mill/uL (4.20-5.40); White Blood Cell (WBC) Count 6.6 thou/uL (4.8-10.8)
[2019-03-24 12:33] LABS: Anion Gap 13 mmol/L (10-20); BUN (Urea Nitrogen) 45 mg/dL (9.8-20.1); Calc. Creatinine Clearance 22 mL/min (70-130); Calcium 8.7 mg/dL (7.8-10.44); Carbon Dioxide 20 mmol/L (23-31); Chloride 107 mmol/L (98-107); Estimated GFR-MDRD 23; Glucose 202 mg/dL (83-110); Potassium 4.5 mmol/L (3.5-5.1); Sodium 135 mmol/L (136-145)
[2019-03-24] MEDS: HumaLOG 300 UNITS/3 ML VIAL SC PRN ×2 (14:07→17:46)
[2019-03-24 14:50] LABS: Hemoglobin 10.5 g/dL (12.0-16.0); Mean Corpuscular HGB CONC 32.7 g/dL (32.0-36.0); Mean Corpuscular Hemoglobin 30.7 pg (27.0-31.0); Mean Corpuscular Volume 94.1 fL (78.0-98.0); Mean Platelet Volume 8.1 fL (7.4-10.4); Platelet Count 126 thou/uL (130-400); RBC Distribution Width 12.9 % (11.5-14.5); Red Blood Cell (RBC) Count 3.43 mill/uL (4.20-5.40); White Blood Cell (WBC) Count 7.1 thou/uL (4.8-10.8)
[2019-03-24 15:10] LABS: Anion Gap 13 mmol/L (10-20); BUN (Urea Nitrogen) 46 mg/dL (9.8-20.1); Calc. Creatinine Clearance 22 mL/min (70-130); Calcium 8.8 mg/dL (7.8-10.44); Carbon Dioxide 21 mmol/L (23-31); Chloride 108 mmol/L (98-107); Estimated GFR-MDRD 23; Glucose 238 mg/dL (83-110); Potassium 4.7 mmol/L (3.5-5.1); Sodium 137 mmol/L (136-145)
[2019-03-24 15:29] LABS: Band 2 % (5-11); Eosinophils 3 % (0-10); Lymphocytes 13 % (21-51); MDiff Complete? YES; Monocytes 11 % (0-10); Neutrophil 70 % (42-75); Ovalocytes SLIGHT = 2-5 cells (100X) (0-1/hpf); Platelet Morphology Comment Appears Decreased; Polychromasia SLIGHT = 2-3 cells (100X) (0-2/hpf)
--- NOTE | 2019-03-24 17:48 | PRG ---
DATE OF SERVICE: 03/24/2019 SUBJECTIVE: The patient was seen and examined, seems to be doing much better, noted with the following vital signs. OBJECTIVE: VITAL SIGNS: Afebrile, temperature 97.8, pulse 61, respiratory rate of 18, O2 saturations of 96%, and blood pressure 170/72. HEENT: Unremarkable. CARDIOVASCULAR: First and second heart sounds were heard. RESPIRATORY: Clear to auscultation. DIGESTIVE: Revealed a benign abdomen. Positive bowel sounds. EXTREMITIES: No peripheral edema. SKIN: No new gross rash. LYMPHATICS: No peripheral lymphadenopathy. LABORATORY INVESTIGATION: Showed a creatinine of 2.09 with BUN of 45. IMPRESSION: 1. Acute kidney injury. 2. History of hyperammonemia, query cause. PLAN: 1. Continue current renal supportive measures. 2. Renally dose all medications for low GFR. 3. Avoid potentially nephrotoxic agents. 4. If no significant renal improvement, I recommend renal ultrasound to evaluate the kidneys. Job ID: [id number]
[2019-03-24] MEDS: PARoxetine 20 MG TAB PO SCH (20:41)
[2019-03-24] MEDS: Insulin Glargine 5 UNITS in Pre-Filled Syringe 1 EACH SC SCH (20:41)
[2019-03-25] MEDS: Levothyroxine Sodium 88 MCG TAB PO SCH (05:15)
[2019-03-25 06:23] LABS: Albumin 3.1 g/dL (3.4-4.8); Anion Gap 12 mmol/L (10-20); BUN (Urea Nitrogen) 45 mg/dL (9.8-20.1); Calc. Creatinine Clearance 23 mL/min (70-130); Calcium 8.1 mg/dL (7.8-10.44); Carbon Dioxide 19 mmol/L (23-31); Chloride 109 mmol/L (98-107); Estimated GFR-MDRD 25; Glucose 73 mg/dL (83-110); Phosphorus 3.2 mg/dL (2.3-4.7); Potassium 4.8 mmol/L (3.5-5.1); Sodium 135 mmol/L (136-145)
[2019-03-25] MEDS: Rifaximin 550 MG TAB PO SCH ×2 (08:33→21:23)
[2019-03-25] MEDS: Ferrous Sulfate 325 MG TAB PO SCH (08:33)
[2019-03-25] MEDS: Aspirin 81 mg Enteric Coated Tablet PO SCH (08:33)
[2019-03-25] MEDS: Calcium Carbonate + Vit D 1 TAB PO SCH (08:34)
[2019-03-25] MEDS: Amlodipine 10 MG TAB PO SCH (08:34)
[2019-03-25] MEDS: Carvedilol 6.25 MG TAB PO SCH ×2 (08:34→21:22)
[2019-03-25] MEDS: hydrALAZINE 25 MG TAB PO SCH ×3 (08:34→21:22)
[2019-03-25] MEDS: Insulin Glargine 10 UNITS in Pre-Filled Syringe 1 EACH SC SCH (08:39)
[2019-03-25] MEDS: AMPicillin 1 GM in Sodium Chloride 0.9% 100 ML IVPB SCH ×3 (08:59→21:26)
[2019-03-25] MEDS ORDERED: AMPICILLIN SLOW IVP SCH (12:00)
[2019-03-25] MEDS: HumaLOG 300 UNITS/3 ML VIAL SC PRN ×2 (12:25→16:44)
--- NOTE | 2019-03-25 15:20 | PRG ---
DATE OF SERVICE: 03/25/2019 SUBJECTIVE: The patient is seen and examined, noted with the following vital signs. OBJECTIVE: VITAL SIGNS: Afebrile, temperature 97.5, pulse 64, respiratory rate of 18, O2 saturation 94% with a blood pressure of 152/68. HEENT: Unremarkable. CARDIOVASCULAR SYSTEM: First and second heart sounds were heard. RESPIRATORY SYSTEM: Clear to auscultation. DIGESTIVE SYSTEM: Revealed a benign abdomen with positive bowel sounds. EXTREMITIES: No peripheral edema. SKIN: No new gross rash. LYMPHATICS: No peripheral lymphadenopathy. LABORATORY INVESTIGATION: Showed a creatinine down to 1.94, BUN of 45. IMPRESSION: 1. Acute on chronic kidney disease, which seems to be improving. 2. Chronic kidney disease, stage 3, at baseline. PLAN: 1. Continue current renal supportive measures. 2. IV fluid no longer needed. 3. Outpatient Nephrology followup status post discharge recommended. Job ID: [id number]
--- NOTE | 2019-03-25 15:22 | EKG ---
Test Reason : Blood Pressure : / mmHG Vent. Rate : 060 BPM Atrial Rate : 060 BPM P-R Int : 178 ms QRS Dur : 108 ms QT Int : 498 ms P-R-T Axes : 038 027 123 degrees QTc Int : 498 ms Normal sinus rhythm Inferior infarct , age undetermined T wave abnormality, consider lateral ischemia Abnormal ECG Confirmed by EDWARD FALLON, FARHAT (12), managing editor COLLIN WALSH ([id number]) on 03/25/2019 3:22:10 PM Referred By: Confirmed By:FARHAT LEON MD
--- NOTE | 2019-03-25 15:47 | PDOC.HOSPP ---
- Subjective Subjective: Seen and examined. Patient's tells me that she still has urinary tract infection symptoms including burning and frequency. Patient does endorse diarrhea which is chronic, patient on medications to lower ammonia which cause diarrhea. Patient does not know why she has liver dysfunction, though she has been told that her "liver is weak" in the past. - Objective Vital Signs & Weight: Vital Signs (12 hours) Temp Pulse Resp BP BP Pulse Ox 03/25/19 15:07 55 L 03/25/19 15:05 97.9 F 55 L 18 138/63 99 03/25/19 12:00 97.5 F L 64 18 152/68 H 94 L 03/25/19 08:34 60 03/25/19 08:00 97.7 F 63 18 149/65 H 99 03/25/19 04:00 98.8 F 60 20 153/71 H 98 Weight Weight 138 lb 11.2 oz I&O: 03/24/19 03/25/19 03/26/19 06:59 06:59 06:59 Intake Total 203 1090 480 Balance 203 1090 480 Result Diagrams: 03/24/19 14:31 03/25/19 05:22 Additional Labs: Accuchecks 03/25/19 03/25/19 03/24/19 11:39 05:49 20:03 POC Glucose 321 H 88 174 H 03/24/19 17:08 POC Glucose 211 H Hospitalist ROS - Review of Systems All other systems reviewed; all pertinent +/- noted in HPI/Subj - Medication Medications: Active Medications Generic Name Dose Route Start Last Admin Trade Name Dheerajq PRN Reason Stop Dose Admin Amlodipine Besylate 10 mg 03/23/19 09:00 03/25/19 08:34 Norvasc PO 10 mg DAILY CHAPARRO Administration Aspirin 81 mg 03/23/19 09:00 03/25/19 08:33 Ecotrin PO 81 mg DAILY CHAPARRO Administration Calcium/Vitamin D 1 tab 03/23/19 09:00 03/25/19 08:34 Caltrate 600 + Vit D PO 1 tab DAILY CHAPARRO Administration Carvedilol 6.25 mg 03/23/19 09:00 03/25/19 08:34 Coreg PO 6.25 mg BID CHAPARRO Administration Ferrous Sulfate 325 mg 03/23/19 08:00 03/25/19 08:33 Feosol PO 325 mg QAM-WM CHAPARRO Administration Hydralazine HCl 50 mg 03/23/19 09:00 03/25/19 15:07 Apresoline PO 50 mg TID CHAPARRO Administration Insulin Glargine 5 units/ 0.05 mls @ 0 mls/hr 03/23/19 21:00 03/24/19 20:41 Miscellaneous Medication SC 0.05 mls HS CHAPARRO Administration Insulin Glargine 10 units/ 0.1 mls @ 0 mls/hr 03/23/19 09:00 03/25/19 08:39 Miscellaneous Medication SC 0.1 mls QAM CHAPARRO Administration Ampicillin Sodium 1 gm/ Sodium 100 mls @ 200 mls/hr 03/25/19 09:00 03/25/19 15:06 Chloride IVPB 100 mls Q6H CHAPARRO Administration Insulin Human Lispro 0 units 03/23/19 05:02 03/25/19 12:25 Humalog SC 5 units .MILD SLIDING SCALE PRN Administration Mild Correctional Scale Lactulose 20 gm 03/23/19 09:00 03/25/19 08:33 Lactulose PO 20 gm BID CHAPARRO Administration Levothyroxine Sodium 88 mcg 03/23/19 06:00 03/25/19 05:15 Synthroid PO 88 mcg 0600 CHAPARRO Administration Paroxetine HCl 10 mg 03/23/19 21:00 03/24/19 20:41 Paxil PO 10 mg HS CHAPARRO Administration Rifaximin 550 mg 03/23/19 09:00 03/25/19 08:33 Xifaxan PO 550 mg BID CHAPARRO Administration - Exam General Appearance: NAD, awake alert Eye: anicteric sclera ENT: no oropharyngeal lesions, moist mucosa Neck: supple, symmetric, no lymphadenopathy Heart: no murmur, no gallops, no rubs Respiratory: CTAB, no wheezes, no rales, no ronchi Gastrointestinal: soft, non-tender, non-distended, no guarding, no rigidity Extremities: 1+ LE edema Skin: no lesions, no rashes Neurological: no focal deficits Musculoskeletal: generalized weakness Psychiatric: normal affect, A&O x 3 Hosp A/P (1) WILLY (acute kidney injury) Code(s): N17.9 - ACUTE KIDNEY FAILURE, UNSPECIFIED Status: Acute (2) Hyperammonemia Code(s): E72.20 - DISORDER OF UREA CYCLE METABOLISM, UNSPECIFIED Status: Acute (3) UTI (urinary tract infection) Status: Acute (4) Chronic anemia Code(s): D64.9 - ANEMIA, UNSPECIFIED Status: Chronic (5) Coronary artery disease Code(s): I25.10 - ATHSCL HEART DISEASE OF [place] CORONARY ARTERY W/O ANG PCTRS Status: Chronic Qualifiers: (6) Diabetes type 2, controlled Code(s): E11.9 - TYPE 2 DIABETES MELLITUS WITHOUT COMPLICATIONS Status: Chronic Qualifiers: (7) Hypertension Code(s): I10 - ESSENTIAL (PRIMARY) HYPERTENSION Status: Chronic Qualifiers: (8) Hypothyroidism Code(s): E03.9 - HYPOTHYROIDISM, UNSPECIFIED Status: Chronic Qualifiers: (9) Liver cirrhosis Code(s): K74.60 - UNSPECIFIED CIRRHOSIS OF LIVER Status: Chronic (10) Moderate aortic stenosis Code(s): I35.0 - NONRHEUMATIC AORTIC (VALVE) STENOSIS Status: Chronic (11) Physical deconditioning Code(s): R53.81 - OTHER MALAISE Status: Chronic (12) Portal hypertension Code(s): K76.6 - PORTAL HYPERTENSION Status: Chronic (13) Psoriasis Code(s): L40.9 - PSORIASIS, UNSPECIFIED Status: Chronic (14) Hepatic encephalopathy Code(s): K72.90 - HEPATIC FAILURE, UNSPECIFIED WITHOUT COMA Status: Resolved - Plan Plan: medical unit with telemetry nephrology consultation, recommendations appreciated renal function improving with maximal medical therapy by otolaryngology rep patient with Proteus mirabilis urinary tract infection, sensitivities noted. Will start ampicillin patient with diarrhea, this is chronic secondary to lactulose for elevated ammonia. Patient physically deconditioned and has trouble walking to the restroom with the assistance of Walker physical therapy/Occupational Therapy evaluation and treatment, patient may benefit from a short course of rehab. Continue other home medications as able glucose control with long and short acting insulin
[2019-03-25] MEDS ORDERED: Sodium Chloride 0.9% 10 ML ONE (20:50)
[2019-03-25] MEDS: PARoxetine 20 MG TAB PO SCH (21:23)
[2019-03-25] MEDS: Insulin Glargine 5 UNITS in Pre-Filled Syringe 1 EACH SC SCH (21:24)
[2019-03-26] MEDS: AMPicillin 1 GM in Sodium Chloride 0.9% 100 ML IVPB SCH ×4 (03:13→22:04)
[2019-03-26] MEDS: Levothyroxine Sodium 88 MCG TAB PO SCH (06:32)
[2019-03-26 06:37] LABS: Albumin 3.1 g/dL (3.4-4.8); Anion Gap 10 mmol/L (10-20); BUN (Urea Nitrogen) 48 mg/dL (9.8-20.1); BUN/Creatinine Ratio 28.07; Calc. Creatinine Clearance 26 mL/min (70-130); Calcium 8.4 mg/dL (7.8-10.44); Carbon Dioxide 19 mmol/L (23-31); Chloride 110 mmol/L (98-107); Estimated GFR-MDRD 29; Glucose 89 mg/dL (83-110); Phosphorus 3.5 mg/dL (2.3-4.7); Potassium 5.3 mmol/L (3.5-5.1); Sodium 134 mmol/L (136-145)
[2019-03-26] MEDS ORDERED: Sodium Chloride 0.9% 10 ML ONE ×2 (08:15→15:23)
[2019-03-26] MEDS: Calcium Carbonate + Vit D 1 TAB PO SCH (08:53)
[2019-03-26] MEDS: Insulin Glargine 10 UNITS in Pre-Filled Syringe 1 EACH SC SCH (08:53)
[2019-03-26] MEDS: Aspirin 81 mg Enteric Coated Tablet PO SCH (08:53)
[2019-03-26] MEDS: Carvedilol 6.25 MG TAB PO SCH ×2 (08:54→22:04)
[2019-03-26] MEDS: hydrALAZINE 25 MG TAB PO SCH ×3 (08:54→22:03)
[2019-03-26] MEDS: Rifaximin 550 MG TAB PO SCH ×2 (08:55→22:03)
[2019-03-26] MEDS: Ferrous Sulfate 325 MG TAB PO SCH (08:55)
[2019-03-26] MEDS: Amlodipine 10 MG TAB PO SCH (08:55)
[2019-03-26] MEDS: HumaLOG 300 UNITS/3 ML VIAL SC PRN ×2 (12:55→17:49)
--- NOTE | 2019-03-26 13:41 | PDOC.HOSPP ---
- Subjective Subjective: More clear thinking. Still with diarrhea. Urinary tract infection symptoms improving. Has not worked with physical therapy yet. - Objective Vital Signs & Weight: Vital Signs (12 hours) Temp Pulse Resp BP BP BP Pulse Ox 03/26/19 12:00 97.6 F 62 16 134/62 03/26/19 08:55 60 144/65 H 03/26/19 08:54 60 144/65 H 03/26/19 08:00 100 03/26/19 07:52 98.2 F 60 16 144/65 H 99 03/26/19 03:34 97.8 F 62 14 117/60 99 Weight Weight 144 lb 2 oz I&O: 03/25/19 03/26/19 03/27/19 06:59 06:59 06:59 Intake Total 1090 2140 Balance 1090 2140 Result Diagrams: 03/24/19 14:31 03/26/19 05:50 Additional Labs: Accuchecks 03/26/19 03/26/19 03/26/19 12:15 10:42 05:18 POC Glucose 206 H 195 H 98 03/25/19 03/25/19 21:25 16:09 POC Glucose 199 H 339 H Hospitalist ROS - Review of Systems All other systems reviewed; all pertinent +/- noted in HPI/Subj - Medication Medications: Active Medications Generic Name Dose Route Start Last Admin Trade Name Freq PRN Reason Stop Dose Admin Amlodipine Besylate 10 mg 03/23/19 09:00 03/26/19 08:55 Norvasc PO 10 mg DAILY CHAPARRO Administration Aspirin 81 mg 03/23/19 09:00 03/26/19 08:53 Ecotrin PO 81 mg DAILY CHAPARRO Administration Calcium/Vitamin D 1 tab 03/23/19 09:00 03/26/19 08:53 Caltrate 600 + Vit D PO 1 tab DAILY CHAPARRO Administration Carvedilol 6.25 mg 03/23/19 09:00 03/26/19 08:54 Coreg PO 6.25 mg BID CHAPARRO Administration Ferrous Sulfate 325 mg 03/23/19 08:00 03/26/19 08:55 Feosol PO 325 mg QAM-WM CHAPARRO Administration Hydralazine HCl 50 mg 03/23/19 09:00 03/26/19 08:54 Apresoline PO 50 mg TID CHAPARRO Administration Insulin Glargine 5 units/ 0.05 mls @ 0 mls/hr 03/23/19 21:00 03/25/19 21:24 Miscellaneous Medication SC 0.05 mls HS CHAPARRO Administration Insulin Glargine 10 units/ 0.1 mls @ 0 mls/hr 03/23/19 09:00 03/26/19 08:53 Miscellaneous Medication SC 0.1 mls QAM CHAPARRO Administration Ampicillin Sodium 1 gm/ Sodium 100 mls @ 200 mls/hr 03/25/19 09:00 03/26/19 10:09 Chloride IVPB 100 mls Q6H CHAPARRO Administration Insulin Human Lispro 0 units 03/23/19 05:02 03/26/19 12:55 Humalog SC 3 units .MILD SLIDING SCALE PRN Administration Mild Correctional Scale Lactulose 20 gm 03/23/19 09:00 03/26/19 08:55 Lactulose PO 20 gm BID CHAPARRO Administration Levothyroxine Sodium 88 mcg 03/23/19 06:00 03/26/19 06:32 Synthroid PO 88 mcg 0600 CHAPARRO Administration Paroxetine HCl 10 mg 03/23/19 21:00 03/25/19 21:23 Paxil PO 10 mg HS CHAPARRO Administration Rifaximin 550 mg 03/23/19 09:00 03/26/19 08:55 Xifaxan PO 550 mg BID CHAPARRO Administration - Exam General Appearance: NAD, awake alert Eye: anicteric sclera ENT: normocephalic atraumatic, moist mucosa Neck: supple, symmetric, no lymphadenopathy Heart: no murmur, no gallops, no rubs Respiratory: CTAB, no wheezes, no rales, no ronchi Gastrointestinal: soft, non-tender, normal bowel sounds, no guarding, no rigidity Extremities: 1+ LE edema Skin: no lesions, no rashes Neurological: cranial nerve grossly intact, normal sensation to touch, no focal deficits Musculoskeletal: generalized weakness Psychiatric: normal affect Hosp A/P (1) WILLY (acute kidney injury) Code(s): N17.9 - ACUTE KIDNEY FAILURE, UNSPECIFIED Status: Acute (2) Hyperammonemia Code(s): E72.20 - DISORDER OF UREA CYCLE METABOLISM, UNSPECIFIED Status: Acute (3) UTI (urinary tract infection) Status: Acute (4) Chronic anemia Code(s): D64.9 - ANEMIA, UNSPECIFIED Status: Chronic (5) Coronary artery disease Code(s): I25.10 - ATHSCL HEART DISEASE OF [place] CORONARY ARTERY W/O ANG PCTRS Status: Chronic Qualifiers: (6) Diabetes type 2, controlled Code(s): E11.9 - TYPE 2 DIABETES MELLITUS WITHOUT COMPLICATIONS Status: Chronic Qualifiers: (7) Hypertension Code(s): I10 - ESSENTIAL (PRIMARY) HYPERTENSION Status: Chronic Qualifiers: (8) Hypothyroidism Code(s): E03.9 - HYPOTHYROIDISM, UNSPECIFIED Status: Chronic Qualifiers: (9) Liver cirrhosis Code(s): K74.60 - UNSPECIFIED CIRRHOSIS OF LIVER Status: Chronic (10) Moderate aortic stenosis Code(s): I35.0 - NONRHEUMATIC AORTIC (VALVE) STENOSIS Status: Chronic (11) Physical deconditioning Code(s): R53.81 - OTHER MALAISE Status: Chronic (12) Portal hypertension Code(s): K76.6 - PORTAL HYPERTENSION Status: Chronic (13) Psoriasis Code(s): L40.9 - PSORIASIS, UNSPECIFIED Status: Chronic (14) Hepatic encephalopathy Code(s): K72.90 - HEPATIC FAILURE, UNSPECIFIED WITHOUT COMA Status: Resolved - Plan Plan: medical unit with telemetry nephrology consultation, recommendations appreciated renal function improving with maximal medical therapy by manager creative services patient with Proteus mirabilis urinary tract infection, sensitivities noted. On IV ampicillin patient with diarrhea, this is chronic secondary to lactulose for elevated ammonia/ cirrhosis Patient physically deconditioned and has trouble walking to the restroom with the assistance of Walker physical therapy/Occupational Therapy evaluation and treatment, patient may benefit from a short course of rehab. Continue other home medications as able glucose control with long and short acting insulin
[2019-03-26] MEDS ORDERED: Insulin Glargine 8 UNITS in Pre-Filled Syringe 1 EACH SC SCH (21:00)
[2019-03-26] MEDS: PARoxetine 20 MG TAB PO SCH (22:03)
[2019-03-27] MEDS: AMPicillin 1 GM in Sodium Chloride 0.9% 100 ML IVPB SCH ×2 (03:25→09:03)
[2019-03-27 05:36] VITALS: BMI 25.0
[2019-03-27] MEDS: Levothyroxine Sodium 88 MCG TAB PO SCH (05:36)
--- NOTE | 2019-03-27 06:27 | PRG ---
DATE OF SERVICE: 03/26/2019 OBJECTIVE: The patient noted with the following vital signs. Blood pressure 137/61, pulse [QAMARKER 63, afebrile, O2 saturation 97%. HEENT: Unremarkable CARDIOVASCULAR SYSTEM: First and second heart sounds were heard. RESPIRATORY SYSTEM: Clear to auscultation. DIGESTIVE SYSTEM: Revealed an obese abdomen with positive bowel sounds. EXTREMITIES: No peripheral edema. LABORATORY INVESTIGATION: Significant for creatinine has come down to 8.71, BUN of 48, bicarb of 19, potassium 5.3. IMPRESSION: [id number] kidney disease, seems to be improvinng. PLAN: 1. We will continue with current renal supportive measures. 2. Renally dose all medications for low GFR. 3. All further management to be dependent on the clinical course. Job ID: [id number]
[2019-03-27] MEDS: Insulin Glargine 10 UNITS in Pre-Filled Syringe 1 EACH SC SCH (08:55)
[2019-03-27] MEDS: hydrALAZINE 25 MG TAB PO SCH ×3 (08:56→22:00)
[2019-03-27] MEDS: Rifaximin 550 MG TAB PO SCH ×2 (08:56→22:00)
[2019-03-27] MEDS: Aspirin 81 mg Enteric Coated Tablet PO SCH (08:56)
[2019-03-27] MEDS: Ferrous Sulfate 325 MG TAB PO SCH (08:56)
[2019-03-27] MEDS: Calcium Carbonate + Vit D 1 TAB PO SCH (08:56)
[2019-03-27] MEDS: Amlodipine 10 MG TAB PO SCH (08:57)
[2019-03-27] MEDS: Carvedilol 6.25 MG TAB PO SCH ×2 (08:58→22:04)
--- NOTE | 2019-03-27 11:00 | PDOC.HOSPP ---
- Subjective Subjective: Seen and examined. Patient is resting in bed this a.m., no acute complaints. I was updated by nursing staff to the patient was found have positive blood cultures one at a to was positive for gram-positive rods. The patient does have gram-negative rods with Proteus mirabilis in the urine. We will repeat urine cultures. Infectious disease consultation requested for further recommendations. - Objective Vital Signs & Weight: Vital Signs (12 hours) Temp Pulse Resp BP BP Pulse Ox 03/27/19 08:58 117/56 L 03/27/19 08:57 61 117/56 L 03/27/19 08:56 61 117/56 L 03/27/19 04:00 98.2 F 61 16 117/56 L 99 03/27/19 00:00 98.1 F 60 16 155/53 H 97 Weight Weight 150 lb 2.157 oz I&O: 03/26/19 03/27/19 03/28/19 06:59 06:59 06:59 Intake Total 2140 800 Balance 2140 800 Result Diagrams: 03/24/19 14:31 03/26/19 05:50 Additional Labs: Accuchecks 03/27/19 03/26/19 03/26/19 05:04 20:26 17:25 POC Glucose 80 255 H 222 H 03/26/19 03/26/19 12:15 10:42 POC Glucose 206 H 195 H Hospitalist ROS - Review of Systems All other systems reviewed; all pertinent +/- noted in HPI/Subj - Medication Medications: Active Medications Generic Name Dose Route Start Last Admin Trade Name Freq PRN Reason Stop Dose Admin Amlodipine Besylate 10 mg 03/23/19 09:00 03/27/19 08:57 Norvasc PO 10 mg DAILY CHAPARRO Administration Aspirin 81 mg 03/23/19 09:00 03/27/19 08:56 Ecotrin PO 81 mg DAILY CHAPARRO Administration Calcium/Vitamin D 1 tab 03/23/19 09:00 03/27/19 08:56 Caltrate 600 + Vit D PO 1 tab DAILY CHAPARRO Administration Carvedilol 6.25 mg 03/23/19 09:00 03/27/19 08:58 Coreg PO 6.25 mg BID CHAPARRO Administration Ferrous Sulfate 325 mg 03/23/19 08:00 03/27/19 08:56 Feosol PO 325 mg QAM-WM CHAPARRO Administration Hydralazine HCl 50 mg 03/23/19 09:00 03/27/19 08:56 Apresoline PO 50 mg TID CHAPARRO Administration Insulin Glargine 10 units/ 0.1 mls @ 0 mls/hr 03/23/19 09:00 03/27/19 08:55 Miscellaneous Medication SC 0.1 mls QAM CHAPARRO Administration Ampicillin Sodium 1 gm/ Sodium 100 mls @ 200 mls/hr 03/25/19 09:00 03/27/19 09:03 Chloride IVPB 100 mls Q6H CHAPARRO Administration Insulin Human Lispro 0 units 03/23/19 05:02 03/26/19 17:49 Humalog SC 3 units .MILD SLIDING SCALE PRN Administration Mild Correctional Scale Insulin Human Lispro 0 units 03/23/19 05:09 03/26/19 22:13 Humalog SC 3 unit .BEDTIME SLIDING SC PRN Administration Bedtime Correctional Scale Lactulose 20 gm 03/23/19 09:00 03/27/19 08:55 Lactulose PO 20 gm BID CHAPARRO Administration Levothyroxine Sodium 88 mcg 03/23/19 06:00 03/27/19 05:36 Synthroid PO 88 mcg 0600 CHAPARRO Administration Paroxetine HCl 10 mg 03/23/19 21:00 03/26/19 22:03 Paxil PO 10 mg HS CHAPARRO Administration Rifaximin 550 mg 03/23/19 09:00 03/27/19 08:56 Xifaxan PO 550 mg BID CHAPARRO Administration - Exam General Appearance: NAD, awake alert Eye: anicteric sclera ENT: normocephalic atraumatic, moist mucosa Neck: supple, symmetric, no lymphadenopathy Heart: RRR, no murmur, no rubs Respiratory: CTAB, no wheezes, no rales, no ronchi Gastrointestinal: soft, non-tender, non-distended, no guarding, no rigidity Extremities: no edema Skin: no lesions, no rashes Neurological: cranial nerve grossly intact Musculoskeletal: generalized weakness Psychiatric: normal affect, A&O x 3 Hosp A/P (1) WILLY (acute kidney injury) Code(s): N17.9 - ACUTE KIDNEY FAILURE, UNSPECIFIED Status: Acute (2) Hyperammonemia Code(s): E72.20 - DISORDER OF UREA CYCLE METABOLISM, UNSPECIFIED Status: Acute (3) UTI (urinary tract infection) Status: Acute (4) Chronic anemia Code(s): D64.9 - ANEMIA, UNSPECIFIED Status: Chronic (5) Coronary artery disease Code(s): I25.10 - ATHSCL HEART DISEASE OF [place] CORONARY ARTERY W/O ANG PCTRS Status: Chronic Qualifiers: (6) Diabetes type 2, controlled Code(s): E11.9 - TYPE 2 DIABETES MELLITUS WITHOUT COMPLICATIONS Status: Chronic Qualifiers: (7) Hypertension Code(s): I10 - ESSENTIAL (PRIMARY) HYPERTENSION Status: Chronic Qualifiers: (8) Hypothyroidism Code(s): E03.9 - HYPOTHYROIDISM, UNSPECIFIED Status: Chronic Qualifiers: (9) Liver cirrhosis Code(s): K74.60 - UNSPECIFIED CIRRHOSIS OF LIVER Status: Chronic (10) Moderate aortic stenosis Code(s): I35.0 - NONRHEUMATIC AORTIC (VALVE) STENOSIS Status: Chronic (11) Physical deconditioning Code(s): R53.81 - OTHER MALAISE Status: Chronic (12) Portal hypertension Code(s): K76.6 - PORTAL HYPERTENSION Status: Chronic (13) Psoriasis Code(s): L40.9 - PSORIASIS, UNSPECIFIED Status: Chronic (14) Hepatic encephalopathy Code(s): K72.90 - HEPATIC FAILURE, UNSPECIFIED WITHOUT COMA Status: Resolved - Plan Plan: medical unit with telemetry nephrology consultation, recommendations appreciated ID consultation, recommendations appreciated patient with Proteus mirabilis urinary tract infection, sensitivities noted. On IV ampicillin Blood culture one out of two with gram-positive rods she is having gram- negative rods in the urine confirmed to be Proteus mirabilis. patient with diarrhea, this is chronic secondary to lactulose for elevated ammonia/ cirrhosis renal function improving with maximal medical therapy by stitching department supervisor PT/OT eval and treat physical therapy/Occupational Therapy evaluation and treatment, was recommended by PT/OT safe for home with home health when medically cleared Continue other home medications as able adjusted long and short acting insulin for glucose control
[2019-03-27] MEDS: HumaLOG 300 UNITS/3 ML VIAL SC PRN ×2 (12:32→17:56)
--- NOTE | 2019-03-27 14:53 | CON ---
DATE OF CONSULTATION: 03/27/2019 REASON FOR CONSULTATION: Altered mental status, encephalopathy, and urinary tract infection. HISTORY OF PRESENT ILLNESS: A 79-year-old, who has a history of prior UTIs, coronary artery disease with type 2 diabetes, and recurrent episodes of hepatic encephalopathy associated with hyperammonemia and likely chronic liver disease, who was admitted with another episode of weakness, slurred speech, some loose stool. No fever documented. No headaches. No visual symptom, sore throat, odynophagia, or dysphagia. No dental pain or back pain. No chest pain or dyspnea. According to the , she did have one episode of dysuria that she complained about in the hospital, but not before. No joint symptoms. PAST MEDICAL HISTORY: Type 2 diabetes, UTIs, coronary artery disease, CHF, and likely some form of chronic liver disease, which led to probable cirrhosis. This is not documented in the biopsy that was done most likely due to sampling error as noted by the pathologist. She does have recurrent episodes of increased ammonia and evidence of portal hypertension. PAST SURGICAL HISTORY: Coronary artery bypass graft surgery, hysterectomy, fracture of ankle, cardiac ablation. SOCIAL HISTORY: Never drank alcoholic beverages. No smoking. ALLERGIES: CEFTRIAXONE, HYDROCODONE, AND NAPROXEN. CURRENT MEDICATIONS: 1. Norvasc. 2. Ampicillin. 3. Ecotrin. 4. Coreg. 5. Glucagon. 6. Insulin. 7. Synthroid. 8. Rifaximin. PHYSICAL EXAMINATION: VITAL SIGNS: T-max 98, BP 130/51, pulse 61, respirations 16, O2 saturation 98. SKIN: Areas of abrasion in the maceration of the skin of the gluteal region, right and left sides. Peripheral IV access. She is voiding in the diaper and toilet. NECK: No lymphadenopathy. HEENT: Ocular movements conjugate. She is awake, oriented, follows commands. Pupils are equal. Oral cavity with quite a few teeth in place with moderate decay and gum disease. NECK: Supple. No jugular vein distention or carotid bruits. BACK: No back tenderness. LUNGS: Symmetric and clear breath sounds. HEART: S1 and S2, regular rate. No S3 or S4. ABDOMEN: Soft. Mild distention. No tenderness. No evidence of ascites. No organomegaly. No bladder distention noted on the physical exam. EXTREMITIES: No joint inflammatory activity. Moves extremities equally. No edema. Pulses 1+ in dorsalis pedis. Plantar responses are flexor. No clonus. NEUROLOGIC: She is awake and oriented. Follows commands. Speech appears to be normal. Recognizes her . LABORATORY DATA: Sodium 137, creatinine started at 3 and now it is down to 1.71 , and potassium 4.9. Liver profile normal. Bilirubin has been normal throughout her previous hospital admissions. AST has ranged anywhere from [address] to 108 in November this year. ALT was mostly normal except for 2 measurements in November this of 87. Alkaline phosphatase has been normal throughout. Albumin started at 3.9 and now 3.1. Previous albumin levels, the lowest was 2.7 in September this year. Ammonia has ranged from a low of 47, all the way to 135, September this year, now it is 87. A urinalysis with greater than 50 wbc's, and has had numerous episodes of greater than 50 wbc's. The microbiology results with various cultures in the past with P. mirabilis, gram-negative rods, Citrobacter, group B strep. She never had a positive blood cultures. Now, she has P. mirabilis, which has resistance to quinolones, Bactrim susceptibility to ampicillin. IMAGING STUDIES: There is a renal ultrasound from November this year with right renal cyst, small right kidney, but no hydronephrosis. A brain CT from December 06 with no acute intracranial abnormalities. A chest x-ray from this admission with no pulmonary infiltrates, some cardiomegaly. There is an abdomen and pelvis CT from September 2018, with varices, nodular contour of liver. ASSESSMENT: 1. Coronary artery disease, prior bypass graft surgery, type 2 diabetes, liver cirrhosis with a biopsy that was probably nondiagnostic due to sampling error. She did show some fibrosis, but the size of the biopsy was quite small. 2. Portal hypertension. 3. Hepatic encephalopathy. DISCUSSION: The patient has this urinary findings, which could represent asymptomatic bacteriuria, but in view of her encephalopathy and one reported episode of dysuria, it is possible that she had cystitis. It is not possible to firmly establish the connection between the urinary abnormalities in her encephalopathy and the changes in mental state could be unrelated to her urinary tract findings. She has received treatment now for about 5 days and I think that is sufficient. I would recommend discontinuation of antimicrobial therapy, checking postvoid residual. She does not have urinary retention. May consider D- Mannose for prevention of recurrent cystitis. D-Mannose is given twice daily, I believe is 2 g twice daily. Another approach would be antimicrobial therapy, but I would prefer to use an alternate regimen, which is less likely the cause of adverse reactions. Job ID: [id number] MTDD
--- NOTE | 2019-03-27 18:32 | PRG ---
DATE OF SERVICE: 03/27/2019 SUBJECTIVE: The patient is seen and examined, noted with the following vital signs. OBJECTIVE: VITAL SIGNS: Afebrile. Temperature 98.2, pulse 61, respiratory rate of 16, blood pressure of 117/56. HEENT: Unremarkable. CARDIOVASCULAR SYSTEM: First and second heart sounds were heard. RESPIRATORY: Clear to auscultation. DIGESTIVE SYSTEM: Revealed a benign abdomen with positive bowel sounds. EXTREMITIES: No peripheral edema. SKIN: No new gross rash. LYMPHATICS: No peripheral lymphadenopathy. LABORATORY INVESTIGATION: None as of today. Based on the results of yesterday, creatinine is down to 1.7. IMPRESSION: 1. Acute on chronic kidney disease, which seems to be much improved. 2. Mild hyperkalemia. PLAN: 1. Continue to optimize hemodynamics to re-evaluate the serum chemistry tomorrow. 2. Further management to be dependent on the clinical course. Job ID: [id number]
[2019-03-27] MEDS ORDERED: Insulin Glargine 6 UNITS in Pre-Filled Syringe 1 EACH SC SCH (21:00)
[2019-03-27] MEDS: PARoxetine 20 MG TAB PO SCH (22:00)
[2019-03-28 04:36] VITALS: TEMP 97.9
[2019-03-28 06:03] LABS: Anion Gap 14 mmol/L (10-20); BUN (Urea Nitrogen) 63 mg/dL (9.8-20.1); Calc. Creatinine Clearance 22 mL/min (70-130); Carbon Dioxide 16 mmol/L (23-31); Chloride 107 mmol/L (98-107); Estimated GFR-MDRD 22; Glucose 76 mg/dL (83-110); Potassium 5.6 mmol/L (3.5-5.1); Sodium 131 mmol/L (136-145)
[2019-03-28 06:07] LABS: Hemoglobin 8.8 g/dL (12.0-16.0); Lymphocytes 23 % (21-51); MDiff Complete? YES; Mean Corpuscular HGB CONC 33.3 g/dL (32.0-36.0); Mean Corpuscular Hemoglobin 30.9 pg (27.0-31.0); Mean Corpuscular Volume 92.7 fL (78.0-98.0); Mean Platelet Volume 7.5 fL (7.4-10.4); Monocytes 15 % (0-10); Neutrophil 62 % (42-75); Platelet Count 100 thou/uL (130-400); Platelet Morphology Comment Appears Decreased; RBC Distribution Width 12.8 % (11.5-14.5); Red Blood Cell (RBC) Count 2.84 mill/uL (4.20-5.40); White Blood Cell (WBC) Count 4.1 thou/uL (4.8-10.8)
[2019-03-28] MEDS: Levothyroxine Sodium 88 MCG TAB PO SCH (06:16)
[2019-03-28] MEDS: Aspirin 81 mg Enteric Coated Tablet PO SCH (08:10)
[2019-03-28] MEDS: Ferrous Sulfate 325 MG TAB PO SCH (08:11)
[2019-03-28] MEDS: Rifaximin 550 MG TAB PO SCH (08:11)
[2019-03-28] MEDS: Amlodipine 10 MG TAB PO SCH (08:11)
[2019-03-28] MEDS: Calcium Carbonate + Vit D 1 TAB PO SCH (08:12)
[2019-03-28] MEDS: hydrALAZINE 25 MG TAB PO SCH ×2 (08:12→15:50)
[2019-03-28] MEDS: Carvedilol 6.25 MG TAB PO SCH (08:14)
[2019-03-28] MEDS: Insulin Glargine 10 UNITS in Pre-Filled Syringe 1 EACH SC SCH (08:15)
--- NOTE | 2019-03-28 10:27 | PDOC.HOSPP ---
- Subjective Encounter Date: 03/28/19 Encounter Time: 10:25 Subjective: stools 3-5 / day on lactulose - Objective Vital Signs & Weight: Vital Signs (12 hours) Temp Pulse Resp BP BP Pulse Ox 03/28/19 08:14 138/58 L 03/28/19 08:12 56 L 03/28/19 08:11 56 L 03/28/19 07:46 97.9 F 56 L 12 125/54 L 97 03/28/19 04:00 97.9 F 53 L 16 120/54 L 98 03/28/19 00:00 98.1 F 55 L 16 136/55 L 96 Weight Weight 150 lb 2.157 oz I&O: 03/27/19 03/28/19 03/29/19 06:59 06:59 06:59 Intake Total 800 480 600 Balance 800 480 600 Result Diagrams: 03/28/19 05:38 03/28/19 05:38 Additional Labs: Accuchecks 03/27/19 03/27/19 03/27/19 21:53 16:09 11:01 POC Glucose 132 H 172 H 243 H Hospitalist ROS - Medication Medications: Active Medications Generic Name Dose Route Start Last Admin Trade Name Freq PRN Reason Stop Dose Admin Amlodipine Besylate 10 mg 03/23/19 09:00 03/28/19 08:11 Norvasc PO Not Given DAILY CHAPARRO Aspirin 81 mg 03/23/19 09:00 03/28/19 08:10 Ecotrin PO 81 mg DAILY CHAPARRO Administration Calcium/Vitamin D 1 tab 03/23/19 09:00 03/28/19 08:12 Caltrate 600 + Vit D PO 1 tab DAILY CHAPARRO Administration Carvedilol 6.25 mg 03/23/19 09:00 03/28/19 08:14 Coreg PO Not Given BID CHAPARRO Ferrous Sulfate 325 mg 03/23/19 08:00 03/28/19 08:11 Feosol PO 325 mg QAM-WM CHAPARRO Administration Hydralazine HCl 50 mg 03/23/19 09:00 03/28/19 08:12 Apresoline PO Not Given TID CHAPARRO Insulin Glargine 10 units/ 0.1 mls @ 0 mls/hr 03/23/19 09:00 03/28/19 08:15 Miscellaneous Medication SC 0.1 mls QAM CHAPARRO Administration Insulin Glargine 6 units/ 0.06 mls @ 1 mls/hr 03/27/19 21:00 03/27/19 21:57 Miscellaneous Medication SC 0.06 mls HS CHAPARRO Administration Insulin Human Lispro 0 units 03/23/19 05:02 03/27/19 17:56 Humalog SC 2 units .MILD SLIDING SCALE PRN Administration Mild Correctional Scale Insulin Human Lispro 0 units 03/23/19 05:09 03/26/19 22:13 Humalog SC 3 unit .BEDTIME SLIDING SC PRN Administration Bedtime Correctional Scale Lactulose 20 gm 03/23/19 09:00 03/28/19 08:11 Lactulose PO 20 gm BID CHAPARRO Administration Levothyroxine Sodium 88 mcg 03/23/19 06:00 03/28/19 06:16 Synthroid PO 88 mcg 0600 CHAPARRO Administration Paroxetine HCl 10 mg 03/23/19 21:00 03/27/19 22:00 Paxil PO 10 mg HS CHAPARRO Administration Rifaximin 550 mg 03/23/19 09:00 03/28/19 08:11 Xifaxan PO 550 mg BID CHAPARRO Administration - Exam General Appearance: awake alert Neck: no JVD Heart: RRR, no murmur Respiratory: CTAB Gastrointestinal: soft, normal bowel sounds Extremities: no edema Hosp A/P (1) Acute renal failure superimposed on stage 3 chronic kidney disease Code(s): N17.9 - ACUTE KIDNEY FAILURE, UNSPECIFIED; N18.3 - CHRONIC KIDNEY DISEASE, STAGE 3 (MODERATE) Status: Acute (2) UTI (urinary tract infection) Status: Acute Qualifiers: Urinary tract infection type: acute cystitis Hematuria presence: without hematuria Qualified Code(s): N30.00 - Acute cystitis without hematuria (3) Coronary artery disease Code(s): I25.10 - ATHSCL HEART DISEASE OF [place] CORONARY ARTERY W/O ANG PCTRS Status: Chronic Qualifiers: Coronary Disease-Associated Artery/Lesion type: [place] artery [place] vs. transplanted heart: [place] heart Associated angina: without angina Qualified Code(s): I25.10 - Atherosclerotic heart disease of [place] coronary artery without angina pectoris (4) Diabetes type 2, controlled Code(s): E11.9 - TYPE 2 DIABETES MELLITUS WITHOUT COMPLICATIONS Status: Chronic Qualifiers: Diabetes mellitus long-term insulin use: without long-term use Diabetes mellitus complication status: with kidney complications Diabetes mellitus complication detail: with chronic kidney disease Chronic kidney disease stage : stage 3 (moderate) Qualified Code(s): E11.22 - Type 2 diabetes mellitus with diabetic chronic kidney disease; N18.3 - Chronic kidney disease, stage 3 ( moderate) (5) Hypertension Code(s): I10 - ESSENTIAL (PRIMARY) HYPERTENSION Status: Chronic Qualifiers: Hypertension type: essential hypertension (6) Liver cirrhosis Code(s): K74.60 - UNSPECIFIED CIRRHOSIS OF LIVER Status: Chronic Qualifiers: Ascites presence: unspecified (7) Hepatic encephalopathy Code(s): K72.90 - HEPATIC FAILURE, UNSPECIFIED WITHOUT COMA Status: Resolved - Plan cont lactulose uti adequately trated cont antihypertensives cont accu/ss/LA insulin
--- NOTE | 2019-03-28 15:19 | DIS ---
DATE OF ADMISSION: 03/22/2019 DATE OF DISCHARGE: 03/28/2019 PRIMARY CARE PROVIDER: Dr. Pedro Amezcua. DISPOSITION: Discharged home. FINAL DIAGNOSES: Weakness, dehydration, acute on chronic kidney injury, hepatic encephalopathy, cirrhosis, coronary artery disease, diabetes mellitus type 2, hypertension. DISCHARGE MEDICATIONS: 1. Levothyroxine 88 mcg a day. 2. Ferrous sulfate 325 mg a day. 3. Amlodipine 10 mg a day. 4. Levemir 5 units subcutaneous in the p.m., Levemir 10 units subcutaneous in the a.m. 5. Aspirin 81 mg a day. 6. Hydralazine 50 mg three times a day. 7. Xifaxan 550 mg b.i.d. 8. Paxil 10 mg h.s. 9. Coreg 6.25 mg twice a day. 10. Lactulose 30 mL p.o. b.i.d. ALLERGIES: TO NAPROSYN, CEFTRIAXONE, HYDROCODONE. DIET: Diabetic. CODE STATUS: Full. PENDING AT TIME OF DISCHARGE: Nothing. CONSULTATIONS: 1. Dr. Rabia Ramírez, Nephrology. 2. Dr. Cj Isabel, Infectious Disease. PROCEDURES: None. HOSPITAL COURSE: The patient was admitted to the hospital with generalized weakness, diarrhea. Laboratory on admission; white count 4.2, hemoglobin 9.5, and platelet count 116,000. Chemistries; sodium 137, potassium 4.9, BUN 67, creatinine 3.01, blood sugar 259. Lactic acid 1.2. Liver function studies unremarkable. Ammonia elevated at 87. Her urine culture grew Proteus mirabilis. A blood culture from 03/22 grew presumptive Corynebacterium. Followup blood cultures have been negative. Stool for C diff was negative. Other workup for diarrheal disease was negative. Her urinary tract infection was treated with Levaquin. She has had less diarrhea. It is thought that her diarrhea is related to her lactulose for her cirrhosis. Her encephalopathy resolved with restarting her normal dose of lactulose. She does complain of making too much poopy. Sodium 131, potassium 5.3, CO2 of 110, creatinine 1.71, BUN 88, blood sugars around 200. Please remove spironolactone from her discharge medicine list because she had a late report of a positive blood culture. Dr. Cj Isabel was consulted. He recommended no further treatment with antibiotics. The patient is being discharged to follow up with her PCP. Followup culture off antibiotics is indicated and an outpatient visit with Urology is reasonable if she has recurrent UTI. Her Lasix has been held due to her dehydration and acute renal failure. Spironolactone has been held due to her modestly elevated potassium levels. Basic metabolic profile needs to be checked and follow up with her PCP. Job ID: [id number]
[2019-03-28 16:12] VITALS: BP 118/44
[2019-03-28] MEDS ORDERED: Sodium Bicarbonate Tab 325 MG TAB PO SCH (21:00)
--- NOTE | 2019-03-29 07:46 | PRG ---
DATE OF SERVICE: 03/28/2019 SUBJECTIVE: The patient is seen and examined. Noted with the following vital signs. OBJECTIVE: VITAL SIGNS: Afebrile, temperature 97.9, pulse 54, respiratory rate of 18, O2 saturation of 98%, blood pressure 118/44 HEENT: Unremarkable. CARDIOVASCULAR: First and second heart sounds were heard. RESPIRATORY: Clear to auscultation. DIGESTIVE SYSTEM: Revealed a benign abdomen with positive bowel sounds. EXTREMITIES: No peripheral edema. SKIN: No new gross rash. LYMPHATICS: No peripheral lymphadenopathy. LABORATORY INVESTIGATION: Significant for creatinine that is down to 2.19, potassium of 5.6, bicarb of 16, sodium of 131. IMPRESSION: 1. Kdnxy-[id number] kidney disease, seems to be labile. 2. Chronic kidney disease, stage 3/4. 3. Metabolic acidosis, query cause. 4. Hyperkalemia, likely related to potassium due to metabolic acidosis, which I do believe that metabolic acidosis is possibly related to bicarb loss in gastrointestinal tract. PLAN: 1. Renally dose all medications for low GFR. 2. Monitor the potassium very closely. 3. We will start this patient on sodium bicarbonate supplementation. Hopefully, this will improve the acid-base disorder in the way of metabolic acidosis, and by so doing influences potassium into the cells, thereby replacing the potassium level. 4. Further management will be dependent on the clinical course. Job ID: [id number]
--- NOTE | 2019-03-30 06:38 | PQF ---
LASHAWN HOLT, [place] C [id number] CLINICAL DOCUMENTATION CLARIFICATION FORM: POST DISCHARGE Addendum to original discharge summary date: ____ Late entry note date: __ DATE:03-30-2019 ATTN:Dr. Gupta, Darragh Please exercise your independent, professional judgment in responding to the clarification form. Clinical indicators are provided on the bottom of this form for your review Based on the clinical indicators below please specify the type of hepatic encephalopathy Please check appropriate box(s): [ ] Acute Hepatic Encephalopathy [ ] Chronic Hepatic Encephalopathy [ x] Hepatic Encephalopathy NOS [ ] other more appropriate condition, please specify : [ ] Unable to determine CLINICAL INDICATORS H&P p1 10 Generalized weakness H&P p1 03/22 Her ammonia level was 87 Consult p3 03/28 It is not possible to firmly establish the connection between the urinary abnormalities in her encephalopathy and the changes in mental state could be unrelated to her urinary tract findings RISK FACTORS H&P p1 10-CKD H&P p3 10-Diabetes Mellitus H&P p3 03/22-Hyperammonemia PN p1 03/24-Acute Kidney Injury Hospitalist PN p6 03/25-Liver Cirrhosis Hospitalist PN p6 03/25-Portal Hypertension TREATMENT H&P p1 03/22-Lactulose 30ml H&P p1 03/22-2L of IV fluids (This form is maintained as a part of the permanent medical record) 2014 [employer] All Rights Reserved Jenn [email or web address] [not provided] MTDD
== END 2019-03-28 18:09 | disposition home health service (06) | DRG 442 ==
LOC: ERS 17:56 → 2NO 19:20 → T4-B 03-26 16:58
PROVIDERS: ADMIT Internal Medicine; ATTEND Internal Medicine
DX: K72.90 Hepatic failure, unspecified without coma (principal); N17.9 Acute kidney failure, unspecified; K76.6 Portal hypertension; I13.0 Hypertensive heart and chronic kidney disease with heart failure and stage 1 through stage 4 chronic kidney disease, or unspecified chronic kidney disease; N30.00 Acute cystitis without hematuria; E87.2 Acidosis; K52.1 Toxic gastroenteritis and colitis; E86.0 Dehydration; I50.9 Heart failure, unspecified; I25.10 Atherosclerotic heart disease of native coronary artery without angina pectoris; E11.22 Type 2 diabetes mellitus with diabetic chronic kidney disease; N18.3 Chronic kidney disease, stage 3 (moderate); D63.1 Anemia in chronic kidney disease; E03.9 Hypothyroidism, unspecified; K74.60 Unspecified cirrhosis of liver; I35.0 Nonrheumatic aortic (valve) stenosis; L40.9 Psoriasis, unspecified; T47.3X5A Adverse effect of saline and osmotic laxatives, initial encounter; B96.4 Proteus (mirabilis) (morganii) as the cause of diseases classified elsewhere; E87.5 Hyperkalemia; Z88.1 Allergy status to other antibiotic agents; Z90.710 Acquired absence of both cervix and uterus; Z79.4 Long term (current) use of insulin; Z79.891 Long term (current) use of opiate analgesic; Z79.82 Long term (current) use of aspirin; Z87.440 Personal history of urinary (tract) infections; Z23 Encounter for immunization; Z88.6 Allergy status to analgesic agent; Z95.1 Presence of aortocoronary bypass graft; Z79.890 Hormone replacement therapy
CPT/HCPCS: 36415; 36416; 71045; 80048; 80053; 80069; 81003; 81015; 82140; 82550; 82553; 83605; 83630; 83690; 83880; 84443; 84484; 85014; 85018; 85025; 87040; 87077; 87086; 87186; 87324; 87328; 87329; 87427; 87449; 93005; 96361; 96365; J0290; J1815; J1956; J3490

== ENCOUNTER 2019-05-20 13:38 | Inpatient (IN) | payer MEDICARE ==
[2019-05-20 14:02] LABS: Hemoglobin 8.9 g/dL (12.0-16.0); Mean Corpuscular HGB CONC 32.4 g/dL (32.0-36.0); Mean Corpuscular Hemoglobin 29.5 pg (27.0-31.0); Mean Corpuscular Volume 91.2 fL (78.0-98.0); Mean Platelet Volume 8.5 fL (7.4-10.4); Platelet Count 115 thou/uL (130-400); RBC Distribution Width 14.4 % (11.5-14.5); Red Blood Cell (RBC) Count 3.02 mill/uL (4.20-5.40); White Blood Cell (WBC) Count 5.7 thou/uL (4.8-10.8)
--- NOTE | 2019-05-20 14:20 | RAD ---
PORTABLE CHEST: HISTORY: Wheezing. COMPARISON: 03/22/2019. FINDINGS: Mild cardiomegaly with postop sternotomy change. There is vascular and interstitial congestion. The findings suggest mild interstitial edema. No focal infiltrate and no significant effusion. IMPRESSION: Evidence of mild vascular and interstitial congestion. POS: OFF
[2019-05-20 14:23] LABS: ALT (SGPT) 11 U/L (8-55); AST (SGOT) 22 U/L (5-34); Albumin 3.5 g/dL (3.4-4.8); Alkaline Phosphatase 93 U/L (40-110); Anion Gap 15 mmol/L (10-20); BUN (Urea Nitrogen) 92 mg/dL (9.8-20.1); Bilirubin, Total 0.7 mg/dL (0.2-1.2); Calc. Creatinine Clearance 0 mL/min (70-130); Calcium 8.7 mg/dL (7.8-10.44); Carbon Dioxide 24 mmol/L (23-31); Chloride 103 mmol/L (98-107); Estimated GFR-MDRD 19; Globulin 3.8 g/dL (2.4-3.5); Glucose 178 mg/dL (83-110); Lipase Less than 4 U/L (8-78); Protein, Total 7.3 g/dL (6.0-8.3); Sodium 138 mmol/L (136-145)
[2019-05-20 14:25] LABS: Band 10 % (5-11); Eosinophils 4 % (0-10); Lymphocytes 10 % (21-51); MDiff Complete? YES; Monocytes 7 % (0-10); Myelocyte 1 % (0-0); Neutrophil 67 % (42-75); Ovalocytes SLIGHT = 2-5 cells (100X) (0-1/hpf); Platelet Morphology Comment Appears Decreased; Polychromasia SLIGHT = 2-3 cells (100X) (0-2/hpf)
[2019-05-20] MEDS ORDERED: Furosemide 40 MG/4 ML VIAL ONE (16:39)
[2019-05-20 16:43] LABS: Bilirubin Negative (Negative); Blood, Urine Negative (Negative); Glucose, Urine (Dipstick) Negative (Negative); Leukocyte Large (Negative); Nitrite Negative (Negative); Protein, Urine (Dipstick) Trace mg/dL (Neg-Trace); Urobilinogen 0.2 mg/dL (Less than 2)
[2019-05-20 16:44] LABS: Clarity Cloudy (Clear)
[2019-05-20 16:53] LABS: RBC/HPF 0-3 HPF (0-3); Squamous Epithelial 0-3 HPF (0-3); WBC/HPF Greater Than 50 HPF (0-3)
[2019-05-20 16:54] LABS: Bacteria/HPF 2+ HPF (None Seen)
[2019-05-20] MEDS ORDERED: Ondansetron PF 4 MG/2 ML Vial IVP PRN (17:42)
[2019-05-20] MEDS ORDERED: MEROPENEM 1 GM/50 ML 1 GM in Premix Bag 1 BAG IVPB SCH (18:45)
--- NOTE | 2019-05-20 18:47 | PDOC.HHP ---
Hospitalist HPI - History of Present Illness wheezing, sluggishness History of Present Illness: THis is a 79 year old female with past medical history of CAD s/p CABG, CKD, Diabetes type II, hypertension, recurrent UTI, hepatic encephalopathy but not definitive cirrhosis who presented to the emergency room due to wheezing for past two weeks per . Patient is a poor historian. Patient has no diagnosis of COPD, has never smoked before. He states he has taken her to several emergency rooms and they never do anything. The patient denies cough, shortness of breath, recent flu-like symptoms. She denies chest pain. She can walk about a block before getting short of breath. Patient's feels the patient is more sluggish and difficult to understand. Typically when this occurs her ammonia level is high per . She has gained about 30 pounds in the past few weeks. He believes patient has been drinking a lot of fluid. She does not drink salt. She takes lasix on daily basis and takes spironolactone only when told by Dr. Russo. She denies abdominal pain, nausea, vomiting, dysuria, urinary urgency or frequency. She does have history of recurrent UTIs with last one growing Proteus. ED Course: In the ER, patient was mildly hypothermic to 94. She was placed in a maricruz hugger. Rest of vitals were unremarkable. EKG showed sinus bradycardia. The patient had a chest Xray which showed mild interstitial congestion. Ammonia level was elevated at 136, BNP 1260. UA which showed large leukocyte esterase , greater than 50 WBC.. Creatinine was 2.50 and was 2.59 April 15. Abdominal ultrasound was done in ER with no evidence of ascites. The patient was given IV lasix, zofran and meropenem. Hospitalist ROS - Review of Systems Constitutional: denies: fever, chills Eyes: denies: pain, vision change ENT: denies: ear pain, ear discharge Respiratory: denies: cough, dry, shortness of breath Cardiovascular: reports: edema. denies: chest pain, palpitations, orthopnea, paroxysmal noc. dyspnea Gastrointestinal: denies: nausea, vomiting, abdominal pain, diarrhea Genitourinary: denies: dysuria, frequency, incontinence, hematuria Musculoskeletal: denies: neck pain, shoulder pain, arm pain Skin: reports: other (psoriasis) Neurological: denies: weakness, numbness Hospitalist History - Past Medical History Cardiac: reports: CAD (s/p CABG), CHF, HTN, Aortic stenosis (moderate MR, moderate TR) BIOLOGIST AIDE: reports: no pertinent history Gastrointestinal: reports: no pertinent history Heme/Onc: reports: no pertinent history Hepatobiliary: reports: Other (Nonspecific portal inflammation) Psych: reports: no pertinent history Musculoskeletal: reports: no pertinent history Rheumatologic: reports: no pertinent history Infectious Disease: reports: no pertinent history Endocrine: reports: Diabetes, Hypothyroidism Dermatology: reports: Psoriasis (previously on humira) - Past Surgical History Other Surgical History: CABG Ankle surgery Previous liver biopsy Cardiac ablation Liver biopsy - Family History Other Family History: patient doesn't know - Social History Smoking Status: Never smoker Alcohol: denies: None Drugs: denies: heroine Domestic Violence: Negative - Exam General Appearance: NAD, awake alert General - other findings: Sluggish to respond, oriented times three Eye: PERRL, anicteric sclera ENT: normocephalic atraumatic, no oropharyngeal lesions ENT - other findings: some rhonchi in upper airway Neck: supple, symmetric, no JVD, no thyromegaly Heart: RRR, no murmur, no gallops, no rubs Respiratory: CTAB, no wheezes, no rales, no ronchi Gastrointestinal: soft, non-tender Gastrointestinal - other findings: distended due to obesity Extremities: no cyanosis, no clubbing, 2+ LE edema Skin: normal turgor, no lesions Skin - other findings: has some red macular lesions on abdomen and thighs Neurological: cranial nerve grossly intact, normal sensation to touch, no focal deficits, no new deficit Musculoskeletal: normal tone, normal strength, no muscle wasting Psychiatric: normal affect, normal behavior, A&O x 3 Hospitalist Results - Labs Result Diagrams: 05/20/19 13:52 05/20/19 13:52 Lab results: WBC 5.7 thou/uL (4.8-10.8) 05/20/19 13:52 Hgb 8.9 g/dL (12.0-16.0) L 05/20/19 13:52 Hct 27.6 % (36.0-47.0) L 05/20/19 13:52 MCV 91.2 fL (78.0-98.0) 05/20/19 13:52 Plt Count 115 thou/uL (130-400) L 05/20/19 13:52 Band Neuts % (Manual) 10 % (5-11) 05/20/19 13:52 Sodium 138 mmol/L (136-145) 05/20/19 13:52 Potassium 4.0 mmol/L (3.5-5.1) 05/20/19 13:52 Chloride 103 mmol/L (98-107) 05/20/19 13:52 Carbon Dioxide 24 mmol/L (23-31) 05/20/19 13:52 BUN 92 mg/dL (9.8-20.1) H 05/20/19 13:52 Creatinine 2.50 mg/dL (0.6-1.1) H 05/20/19 13:52 Glucose 178 mg/dL (83-110) H 05/20/19 13:52 Calcium 8.7 mg/dL (7.8-10.44) 05/20/19 13:52 Total Bilirubin 0.7 mg/dL (0.2-1.2) 05/20/19 13:52 AST 22 U/L (5-34) 05/20/19 13:52 ALT 11 U/L (8-55) 05/20/19 13:52 Alkaline Phosphatase 93 U/L (40-110) 05/20/19 13:52 Ammonia 136 umol/L (18-72) H 05/20/19 15:22 Troponin I 0.010 ng/mL (< 0.028) 05/20/19 13:52 B-Natriuretic Peptide 1270.7 pg/mL (0-100) H 05/20/19 13:52 Serum Total Protein 7.3 g/dL (6.0-8.3) 05/20/19 13:52 Albumin 3.5 g/dL (3.4-4.8) 05/20/19 13:52 Lipase Less than 4 U/L (8-78) L 05/20/19 13:52 Urine Ketones Negative mg/dL (Negative) 05/20/19 16:15 Urine Blood Negative (Negative) 05/20/19 16:15 Urine Nitrite Negative (Negative) 05/20/19 16:15 Ur Leukocyte Esterase Large (Negative) H 05/20/19 16:15 Urine RBC 0-3 HPF (0-3) 05/20/19 16:15 Urine WBC Greater Than 50 HPF (0-3) A 05/20/19 16:15 Ur Squamous Epith Cells 0-3 HPF (0-3) 05/20/19 16:15 Urine Bacteria 2+ HPF (None Seen) A 05/20/19 16:15 - EKG Interpretation EKG: sinus bradycardia Q wave in lead III Hospitalist H&P A/P - Plan Plan: Chest X ray: mild interstitial and vascular congestion This is a 79 year old female with past medical history of hypertension, CAD s/p CABG presenting with wheezing, increasing weight gain, peripheral edema Acute Hepatic encephalopathy - start lactulose TID, trend ammonia level in the morning. Continue rifaximin - bedside US in ED showed no ascites - cause unclear, had liver biopsy which showed possible advanced fibrosis, but no definite evidence of cirrhosis #Wheezing - possibly from acute diastolic CHF - none heard on exam. Chest X ray shows mild congestion, give 40 mg IV lasix x 1 and reassess - BNP elevated - ECHO 06/2017 showed EF 50-55% with grade II diastolic dysfunction, aortic stenosis, moderate MR - EKG shows Q wave in lead III #UTI - has large leukocyte esterase on UA, send urine culture - no fever or WBC but due to confusion, will treat empirically with IV meropenem given last urine culture showed that patient was resistant to cipro - patient gets blisters with ceftriaxone #Sinus bradycardia/hypothermia - check TSH/free T4 #CKD stage V #Right Renal Cyst - creatinine 2.5. Will diurese and reassess creatinine in am - renal ultrasound in November shows right kidney small compared to left - hold spironolactone for now #Hypertension - BP controlled, in the 120's, will hold antihypertensive for now, possibly resume in the morning #CAD s/p CABG - continue aspirin #Anemia - Hb 8, possibly from liver disease - B12 normal earlier this year. Will repeat iron panel, folate in am #Depression - paroxetine daily #Diabetes type II - humalog insulin sliding scale - 10 units levemir qam and 5 units levemir qhs Diet: renal, low protein DVT prophylaxis: SCD for now Code status: full code
[2019-05-20] MEDS ORDERED: Furosemide 40 MG/4 ML VIAL SLOW IVP SCH (19:00)
[2019-05-20] MEDS ORDERED: Dextrose 50% Abboject 50 ML SYRINGE SLOW IVP PRN (19:10)
[2019-05-20] MEDS ORDERED: Dextrose 5% in Water 1,000 ML IV PRN (19:10)
[2019-05-20] MEDS ORDERED: Acetaminophen 325 MG TAB PO PRN (19:12)
[2019-05-20] MEDS: PARoxetine 20 MG TAB PO SCH (20:21)
[2019-05-20] MEDS: Rifaximin 550 MG TAB PO SCH (20:21)
[2019-05-20] MEDS: hydrALAZINE 25 MG TAB PO SCH (20:22)
[2019-05-20] MEDS ORDERED: INSULIN DETEMIR 5 UNIT SQ SCH (21:00)
[2019-05-20] MEDS ORDERED: Carvedilol 6.25 MG TAB PO SCH (21:00)
[2019-05-20] MEDS: Nystatin Ointment 15 GM TUBE TOP SCH (21:20)
[2019-05-20] MEDS: Insulin Glargine 5 UNITS in Pre-Filled Syringe 1 EACH SC SCH (21:21)
[2019-05-21 04:15] LABS: #Eosinphils 0.2 thou/uL (0.0-0.7); #Lymphocytes 0.7 thou/uL (1.20-3.40); #Monocytes 0.5 thou/uL (0.11-0.59); #Neutrophils 2.7 thou/uL (1.40-6.50); %Eosinophils 5.4 % (0.0-10.0); %Lymphocytes 17.5 % (21.0-51.0); %Monocytes 12.5 % (0.0-10.0); %Neutrophils 63.6 % (42.0-75.0); Hemoglobin 8.3 g/dL (12.0-16.0); Mean Corpuscular HGB CONC 33.1 g/dL (32.0-36.0); Mean Corpuscular Hemoglobin 30.2 pg (27.0-31.0); Mean Platelet Volume 7.6 fL (7.4-10.4); Platelet Count 83 thou/uL (130-400); RBC Distribution Width 14.3 % (11.5-14.5); Red Blood Cell (RBC) Count 2.76 mill/uL (4.20-5.40); White Blood Cell (WBC) Count 4.2 thou/uL (4.8-10.8)
[2019-05-21 04:20] LABS: Anion Gap 15 mmol/L (10-20); BUN (Urea Nitrogen) 93 mg/dL (9.8-20.1); Calc. Creatinine Clearance 26 mL/min (70-130); Calcium 8.7 mg/dL (7.8-10.44); Carbon Dioxide 24 mmol/L (23-31); Chloride 105 mmol/L (98-107); Estimated GFR-MDRD 21; Glucose 116 mg/dL (83-110); Potassium 3.6 mmol/L (3.5-5.1); Sodium 140 mmol/L (136-145)
[2019-05-21] MEDS: Levothyroxine Sodium 88 MCG TAB PO SCH (05:23)
[2019-05-21 06:18] VITALS: BMI 29.1
[2019-05-21] MEDS: Ferrous Sulfate 325 MG TAB PO SCH (08:12)
[2019-05-21] MEDS: Calcium Carbonate + Vit D 1 TAB PO SCH (08:12)
[2019-05-21] MEDS: Rifaximin 550 MG TAB PO SCH ×2 (08:12→20:42)
[2019-05-21] MEDS: Aspirin 81 mg Enteric Coated Tablet PO SCH (08:12)
[2019-05-21] MEDS: hydrALAZINE 25 MG TAB PO SCH ×3 (08:13→20:43)
[2019-05-21] MEDS ORDERED: Amlodipine 10 MG TAB PO SCH (09:00)
[2019-05-21] MEDS: Nystatin Ointment 15 GM TUBE TOP SCH ×2 (10:55→20:43)
[2019-05-21] MEDS: Meropenem 500 MG in Sodium Chloride 0.9% 100 ML IVPB SCH ×3 (10:55→21:14)
--- NOTE | 2019-05-21 12:00 | PDOC.HOSPP ---
- Subjective Encounter Date: 05/21/19 Encounter Time: 11:59 Subjective: Ms. Sung was seen today in follow-up of hepatic encephalopathy and UTI. She is sitting up in bed eating. She does not have any complaints. - Objective Vital Signs & Weight: Vital Signs (12 hours) Temp Pulse Resp BP BP Pulse Ox 05/21/19 11:16 64 20 98 05/21/19 08:13 62 165/73 H 05/21/19 08:00 98.1 F 62 18 165/73 H 95 05/21/19 04:50 98.2 F 53 L 15 138/60 96 05/21/19 00:20 97.3 F L Weight Weight 175 lb 1 oz I&O: 05/20/19 05/21/19 05/22/19 06:59 06:59 06:59 Intake Total 240 Output Total 400 Balance -160 Result Diagrams: 05/21/19 03:59 05/21/19 03:59 Additional Labs: Accuchecks 05/21/19 05/21/19 05/20/19 10:40 05:18 20:37 POC Glucose 145 H 122 H 185 H Hospitalist ROS - Medication Medications: Active Medications Generic Name Dose Route Start Last Admin Trade Name Freq PRN Reason Stop Dose Admin Albuterol/Ipratropium 3 ml 05/21/19 09:27 05/21/19 11:16 Duoneb NEB 3 ml [id number] PRN Administration SOB &/or Wheezing Aspirin 81 mg 05/21/19 09:00 05/21/19 08:12 Ecotrin PO 81 mg DAILY CHAPARRO Administration Calcium/Vitamin D 1 tab 05/21/19 09:00 05/21/19 08:12 Caltrate 600 + Vit D PO 1 tab DAILY CHAPARRO Administration Ferrous Sulfate 325 mg 05/21/19 09:00 05/21/19 08:12 Feosol PO 325 mg DAILY CHAPARRO Administration Hydralazine HCl 50 mg 05/20/19 21:00 05/21/19 08:13 Apresoline PO 50 mg TID CHAPARRO Administration Meropenem 500 mg/ Sodium 100 mls @ 200 mls/hr 05/21/19 09:00 05/21/19 10:55 Chloride IVPB 100 mls Q12HR CHAPARRO Administration Insulin Glargine 5 units/ 0.05 mls @ 0 mls/hr 05/20/19 21:00 05/20/19 21:21 Miscellaneous Medication SC 0.05 mls HS CHAPARRO Administration Lactulose 30 gm 05/21/19 09:00 05/21/19 08:08 Lactulose PO 30 gm TID CHAPARRO Administration Levothyroxine Sodium 88 mcg 05/21/19 06:00 05/21/19 05:23 Synthroid PO 88 mcg 0600 CHAPARRO Administration Nystatin 0 gm 05/20/19 21:00 05/21/19 10:55 Mycostatin Ointment TOP 1 applic BID CHAPARRO Administration Paroxetine HCl 10 mg 05/20/19 21:00 05/20/19 20:21 Paxil PO 10 mg HS CHAPARRO Administration Rifaximin 550 mg 05/20/19 21:00 05/21/19 08:12 Xifaxan PO 550 mg BID CHAPARRO Administration Sodium Chloride 10 ml 05/20/19 21:00 05/21/19 08:13 Flush - Normal Saline IVF 10 ml Q12HR CHAPARRO Administration - Exam Eye: PERRL Heart: RRR, no murmur, no gallops, no rubs, normal peripheral pulses Respiratory: no rales, no ronchi, normal chest expansion, wheezes (+ occasional wheeze,) Gastrointestinal: soft, non-tender, non-distended, normal bowel sounds, no palpable masses, no hepatomegaly Extremities: no cyanosis, no clubbing, no edema Hosp A/P (1) Hepatic encephalopathy Code(s): K72.90 - HEPATIC FAILURE, UNSPECIFIED WITHOUT COMA Status: Acute (2) UTI (urinary tract infection) Status: Acute Qualifiers: Urinary tract infection type: acute cystitis Hematuria presence: without hematuria Qualified Code(s): N30.00 - Acute cystitis without hematuria (3) Coronary artery disease Code(s): I25.10 - ATHSCL HEART DISEASE OF [place] CORONARY ARTERY W/O ANG PCTRS Status: Chronic Qualifiers: Coronary Disease-Associated Artery/Lesion type: [place] artery [place] vs. transplanted heart: [place] heart Associated angina: without angina Qualified Code(s): I25.10 - Atherosclerotic heart disease of [place] coronary artery without angina pectoris (4) Diabetes type 2, controlled Code(s): E11.9 - TYPE 2 DIABETES MELLITUS WITHOUT COMPLICATIONS Status: Chronic Qualifiers: Diabetes mellitus fdc insulin use: without terminal system operator use Diabetes mellitus complication status: with kidney complications Diabetes mellitus complication detail: with chronic kidney disease Chronic kidney disease stage : stage 3 (moderate) Qualified Code(s): E11.22 - Type 2 diabetes mellitus with diabetic chronic kidney disease; N18.3 - Chronic kidney disease, stage 3 ( moderate) (5) Hypertension Code(s): I10 - ESSENTIAL (PRIMARY) HYPERTENSION Status: Chronic Qualifiers: Hypertension type: essential hypertension (6) Liver cirrhosis Code(s): K74.60 - UNSPECIFIED CIRRHOSIS OF LIVER Status: Chronic Qualifiers: Ascites presence: unspecified (7) Physical deconditioning Code(s): R53.81 - OTHER [place] Status: Chronic (8) Hypothyroidism Code(s): E03.9 - HYPOTHYROIDISM, UNSPECIFIED Status: Chronic Qualifiers: - Plan * Hepatic Encephalopathy- likely due to UTI- much improved- continue Lactulose * UTI- continue Meropenem * HTN- blood pressure is a bit elevated- will monitor * DM- blood glucose is stable * Cirrhosis- compensated- will check abdominal ultrasound * Re-start Spironolactone * Hypothyroidism- clinically euthyroid
[2019-05-21] MEDS ORDERED: Furosemide 40 MG TAB PO SCH (12:15)
[2019-05-21] MEDS ORDERED: Spironolactone 100 MG TAB PO SCH (12:15)
--- NOTE | 2019-05-21 20:02 | ULT ---
ULTRASOUND ABDOMEN COMPLETE: DATE: 05/21/2019 HISTORY: 79-year-old female with hepatic encephalopathy-cirrhosis. FINDINGS: Liver:Normal size and echogenicity. Minimally nodular margins. Small amount of surrounding free fluid . Gallbladder:Surgically absent. Common duct:5 mm Spleen:No splenomegaly. Small amount of adjacent free fluid. Pancreas:Limited visualization. Kidneys:No hydronephrosis. 2 x 2.5 cm right parapelvic renal cyst. Abdominal aorta:Completely obscured by shadowing from overlying bowel gas. Inferior vena cava:Intrahepatic portion patent. IMPRESSION: 1) questionable cirrhotic morphology of liver. 2) small volume ascites. 3) status post cholecystectomy..
[2019-05-21] MEDS: PARoxetine 20 MG TAB PO SCH (20:42)
[2019-05-21] MEDS: Spironolactone 100 MG TAB PO SCH (20:42)
[2019-05-21] MEDS: Insulin Glargine 5 UNITS in Pre-Filled Syringe 1 EACH SC SCH (20:43)
[2019-05-21] MEDS ORDERED: diphenhydrAMINE 50 MG CAP PO PRN (21:15)
[2019-05-21] MEDS ORDERED: Ciprofloxacin 500 MG TAB PO SCH (21:30)
[2019-05-22 03:53] LABS: #Eosinphils 0.4 thou/uL (0.0-0.7); #Lymphocytes 0.6 thou/uL (1.20-3.40); #Monocytes 0.6 thou/uL (0.11-0.59); #Neutrophils 4.9 thou/uL (1.40-6.50); %Basophils 0.2 % (0.0-1.0); %Eosinophils 5.5 % (0.0-10.0); %Lymphocytes 9.3 % (21.0-51.0); %Monocytes 9.3 % (0.0-10.0); %Neutrophils 75.7 % (42.0-75.0); Hemoglobin 9.2 g/dL (12.0-16.0); Mean Corpuscular HGB CONC 32.3 g/dL (32.0-36.0); Mean Corpuscular Hemoglobin 29.7 pg (27.0-31.0); Mean Corpuscular Volume 91.9 fL (78.0-98.0); Mean Platelet Volume 7.7 fL (7.4-10.4); Platelet Count 111 thou/uL (130-400); RBC Distribution Width 14.3 % (11.5-14.5); White Blood Cell (WBC) Count 6.5 thou/uL (4.8-10.8)
[2019-05-22 04:14] LABS: Anion Gap 14 mmol/L (10-20); BUN (Urea Nitrogen) 80 mg/dL (9.8-20.1); Calc. Creatinine Clearance 26 mL/min (70-130); Calcium 8.6 mg/dL (7.8-10.44); Carbon Dioxide 23 mmol/L (23-31); Chloride 106 mmol/L (98-107); Estimated GFR-MDRD 22; Glucose 148 mg/dL (83-110); Potassium 3.7 mmol/L (3.5-5.1); Sodium 139 mmol/L (136-145)
[2019-05-22] MEDS: Ciprofloxacin 500 MG TAB PO SCH ×2 (05:30→20:26)
[2019-05-22] MEDS: Levothyroxine Sodium 88 MCG TAB PO SCH (05:30)
[2019-05-22] MEDS: Spironolactone 100 MG TAB PO SCH ×2 (08:15→20:26)
[2019-05-22] MEDS: Rifaximin 550 MG TAB PO SCH ×2 (08:15→20:26)
[2019-05-22] MEDS: Aspirin 81 mg Enteric Coated Tablet PO SCH (08:15)
[2019-05-22] MEDS: hydrALAZINE 25 MG TAB PO SCH ×3 (08:16→20:26)
[2019-05-22] MEDS: Calcium Carbonate + Vit D 1 TAB PO SCH (08:16)
[2019-05-22] MEDS: Ferrous Sulfate 325 MG TAB PO SCH (08:16)
[2019-05-22] MEDS ORDERED: Furosemide 40 MG TAB PO SCH (09:00)
[2019-05-22] MEDS ORDERED: diphenhydrAMINE 25 MG CAP PO PRN (09:10)
--- NOTE | 2019-05-22 11:49 | PDOC.HOSPP ---
- Subjective Encounter Date: 05/22/19 Encounter Time: 11:47 Subjective: Ms. Sung was seen today in follow-up of UTI and generalized weakness. She notes a generalized rash all over her body, which is itching. This began last night. - Objective Vital Signs & Weight: Vital Signs (12 hours) Temp Pulse Resp BP Pulse Ox 05/22/19 08:00 98.1 F 65 20 150/70 H 99 05/22/19 03:10 98.0 F 63 18 168/72 H 98 Weight Admit Weight 175 lb Weight 173 lb 4 oz I&O: 05/21/19 05/22/19 05/23/19 06:59 06:59 06:59 Intake Total 240 480 Output Total 400 400 Balance -160 80 Result Diagrams: 05/22/19 03:41 05/22/19 03:41 Additional Labs: Accuchecks 05/22/19 05/22/19 05/21/19 10:27 05:58 20:23 POC Glucose 175 H 134 H 197 H 05/21/19 17:07 POC Glucose 195 H Hospitalist ROS - Medication Medications: Active Medications Generic Name Dose Route Start Last Admin Trade Name Freq PRN Reason Stop Dose Admin Albuterol/Ipratropium 3 ml 05/21/19 09:27 05/21/19 11:16 Duoneb NEB 3 ml [id number] PRN Administration SOB &/or Wheezing Aspirin 81 mg 05/21/19 09:00 05/22/19 08:15 Ecotrin PO 81 mg DAILY CHAPARRO Administration Calcium/Vitamin D 1 tab 05/21/19 09:00 05/22/19 08:16 Caltrate 600 + Vit D PO 1 tab DAILY CHAPARRO Administration Ciprofloxacin 500 mg 05/22/19 06:00 05/22/19 05:30 Cipro PO 500 mg 06,1999 CHAPARRO Administration Diphenhydramine HCl 50 mg 05/21/19 21:15 05/21/19 21:28 Benadryl PO 05/22/19 21:16 50 mg ONE PRN Administration Itching & Insomnia Diphenhydramine HCl 25 mg 05/22/19 09:10 05/22/19 09:26 Benadryl PO 25 mg Q6H PRN Administration Itching & Insomnia Ferrous Sulfate 325 mg 05/21/19 09:00 05/22/19 08:16 Feosol PO 325 mg DAILY CHAPARRO Administration Hydralazine HCl 50 mg 05/20/19 21:00 05/22/19 08:16 Apresoline PO 50 mg TID CHAPARRO Administration Insulin Glargine 5 units/ 0.05 mls @ 0 mls/hr 05/20/19 21:00 05/21/19 20:43 Miscellaneous Medication SC 0.05 mls HS CHAPARRO Administration Lactulose 30 gm 05/21/19 09:00 05/22/19 08:16 Lactulose PO 30 gm TID CHAPARRO Administration Levothyroxine Sodium 88 mcg 05/21/19 06:00 05/22/19 05:30 Synthroid PO 88 mcg 0600 CHAPARRO Administration Nystatin 0 gm 05/20/19 21:00 05/21/19 20:43 Mycostatin Ointment TOP 1 applic BID CHAPARRO Administration Paroxetine HCl 10 mg 05/20/19 21:00 05/21/19 20:42 Paxil PO 10 mg HS CHAPARRO Administration Rifaximin 550 mg 05/20/19 21:00 05/22/19 08:15 Xifaxan PO 550 mg BID CHAPARRO Administration Sodium Chloride 10 ml 05/20/19 21:00 05/21/19 20:44 Flush - Normal Saline IVF 10 ml Q12HR CHAPARRO Administration Spironolactone 50 mg 05/21/19 21:00 05/22/19 08:15 Aldactone PO 50 mg BID CHAPARRO Administration - Exam Eye: PERRL Heart: RRR, no murmur, no gallops, no rubs, normal peripheral pulses Respiratory: CTAB, no wheezes, no rales, no ronchi, normal chest expansion, no tachypnea, normal percussion Gastrointestinal: soft, non-tender, non-distended, normal bowel sounds, no palpable masses, no hepatomegaly Extremities: no cyanosis, no edema Skin: normal turgor (+ erythematous velvety rash on the torso, and back), no lesions, no rashes Psychiatric: normal affect Hosp A/P (1) Hepatic encephalopathy Code(s): K72.90 - HEPATIC FAILURE, UNSPECIFIED WITHOUT COMA Status: Acute (2) UTI (urinary tract infection) Status: Acute Qualifiers: Urinary tract infection type: acute cystitis Hematuria presence: without hematuria Qualified Code(s): N30.00 - Acute cystitis without hematuria (3) Coronary artery disease Code(s): I25.10 - ATHSCL HEART DISEASE OF [place] CORONARY ARTERY W/O ANG PCTRS Status: Chronic Qualifiers: Coronary Disease-Associated Artery/Lesion type: [place] artery [place] vs. transplanted heart: [place] heart Associated angina: without angina Qualified Code(s): I25.10 - Atherosclerotic heart disease of [place] coronary artery without angina pectoris (4) Diabetes type 2, controlled Code(s): E11.9 - TYPE 2 DIABETES MELLITUS WITHOUT COMPLICATIONS Status: Chronic Qualifiers: Diabetes mellitus vermin exterminator insulin use: without senior living use Diabetes mellitus complication status: with kidney complications Diabetes mellitus complication detail: with chronic kidney disease Chronic kidney disease stage : stage 3 (moderate) Qualified Code(s): E11.22 - Type 2 diabetes mellitus with diabetic chronic kidney disease; N18.3 - Chronic kidney disease, stage 3 ( moderate) (5) Hypertension Code(s): I10 - ESSENTIAL (PRIMARY) HYPERTENSION Status: Chronic Qualifiers: Hypertension type: essential hypertension (6) Liver cirrhosis Code(s): K74.60 - UNSPECIFIED CIRRHOSIS OF LIVER Status: Chronic Qualifiers: Ascites presence: unspecified (7) Physical deconditioning Code(s): R53.81 - OTHER MALAISE Status: Chronic (8) Hypothyroidism Code(s): E03.9 - HYPOTHYROIDISM, UNSPECIFIED Status: Chronic Qualifiers: - Plan * Hepatic Encephalopathy- resolved- continue Lactulose * UTI- Meropenem was discontinued due to a rash * Rash- attributed to Meropenem- this has been entered into her record as an allergy- continue symptom management * HTN- blood pressure is a bit elevated- will monitor * DM- blood glucose is better * Cirrhosis- compensated * Hypothyroidism- clinically euthyroid
[2019-05-22] MEDS: HumaLOG 300 UNITS/3 ML VIAL SC PRN ×2 (11:59→18:30)
[2019-05-22] MEDS: Triamcinolone 0.1% Cream 15 GM TUBE TOP SCH ×2 (13:13→20:27)
[2019-05-22] MEDS: Nystatin Ointment 15 GM TUBE TOP SCH (13:17)
[2019-05-22] MEDS: PARoxetine 20 MG TAB PO SCH (20:26)
[2019-05-22] MEDS: Nystatin Powder 15 GM BOT TOP SCH (20:27)
[2019-05-22] MEDS ORDERED: Hydrocortisone Valerate 0.2% Cream 60 gm Tube TOP SCH (21:00)
[2019-05-22] MEDS: Insulin Glargine 5 UNITS in Pre-Filled Syringe 1 EACH SC SCH (21:06)
[2019-05-23] MEDS: Levothyroxine Sodium 88 MCG TAB PO SCH (05:35)
[2019-05-23] MEDS: Spironolactone 100 MG TAB PO SCH (10:48)
[2019-05-23] MEDS: hydrALAZINE 25 MG TAB PO SCH ×2 (10:50→18:39)
[2019-05-23] MEDS: Aspirin 81 mg Enteric Coated Tablet PO SCH (10:53)
[2019-05-23] MEDS: Calcium Carbonate + Vit D 1 TAB PO SCH (10:54)
[2019-05-23] MEDS: Ferrous Sulfate 325 MG TAB PO SCH (10:55)
[2019-05-23] MEDS: Rifaximin 550 MG TAB PO SCH (10:55)
[2019-05-23] MEDS: HumaLOG 300 UNITS/3 ML VIAL SC PRN ×2 (10:57→18:39)
[2019-05-23] MEDS: Triamcinolone 0.1% Cream 15 GM TUBE TOP SCH (11:01)
[2019-05-23] MEDS: Nystatin Powder 15 GM BOT TOP SCH (11:01)
--- NOTE | 2019-05-23 11:56 | PDOC.HOSPP ---
- Subjective Encounter Date: 05/23/19 Encounter Time: 11:55 Subjective: Ms. Sung was seen today in follow-up of hepatic encephalopathy, and UTI. She says she feels better today. She looks much better. The itching has improved. - Objective Vital Signs & Weight: Vital Signs (12 hours) Temp Pulse Pulse Pulse Resp BP BP 05/23/19 10:50 68 162/70 H 05/23/19 09:57 72 70 153/69 H 05/23/19 07:55 05/23/19 07:52 99.2 F 74 14 05/23/19 03:31 98.1 F 71 18 BP BP Pulse Ox 05/23/19 10:50 05/23/19 09:57 155/69 H 05/23/19 07:55 98 05/23/19 07:52 149/70 H 98 05/23/19 03:31 168/69 H 96 Weight Admit Weight 175 lb Weight 168 lb 12.8 oz I&O: 05/22/19 05/23/19 05/24/19 06:59 06:59 06:59 Intake Total 480 550 Output Total 400 Balance 80 550 Result Diagrams: 05/22/19 03:41 05/22/19 03:41 Additional Labs: Accuchecks 05/23/19 05/23/19 05/22/19 10:27 06:09 20:49 POC Glucose 171 H 103 210 H 05/22/19 17:07 POC Glucose 172 H Hospitalist ROS - Medication Medications: Active Medications Generic Name Dose Route Start Last Admin Trade Name Freq PRN Reason Stop Dose Admin Albuterol/Ipratropium 3 ml 05/21/19 09:27 05/21/19 11:16 Duoneb NEB 3 ml [id number] PRN Administration SOB &/or Wheezing Aspirin 81 mg 05/21/19 09:00 05/23/19 10:53 Ecotrin PO 81 mg DAILY CHAPARRO Administration Calcium/Vitamin D 1 tab 05/21/19 09:00 05/23/19 10:54 Caltrate 600 + Vit D PO 1 tab DAILY CHAPARRO Administration Diphenhydramine HCl 25 mg 05/22/19 09:10 05/22/19 09:26 Benadryl PO 25 mg Q6H PRN Administration Itching & Insomnia Ferrous Sulfate 325 mg 05/21/19 09:00 05/23/19 10:55 Feosol PO 325 mg DAILY CHAPARRO Administration Hydralazine HCl 50 mg 05/20/19 21:00 05/23/19 10:50 Apresoline PO 50 mg TID CHAPARRO Administration Insulin Glargine 5 units/ 0.05 mls @ 0 mls/hr 05/20/19 21:00 05/22/19 21:06 Miscellaneous Medication SC 0.05 mls HS CHAPARRO Administration Insulin Human Lispro 0 units 05/20/19 19:10 05/23/19 10:57 Humalog SC 2 unit .MILD SLIDING SCALE PRN Administration Mild Correctional Scale Lactulose 30 gm 05/21/19 09:00 05/23/19 10:55 Lactulose PO 30 gm TID CHAPARRO Administration Levothyroxine Sodium 88 mcg 05/21/19 06:00 05/23/19 05:35 Synthroid PO 88 mcg 0600 CHAPARRO Administration Nystatin 1 gm 05/22/19 21:00 05/23/19 11:01 Mycostatin Powder TOP 1 applic BID CHAPARRO Administration Paroxetine HCl 10 mg 05/20/19 21:00 05/22/19 20:26 Paxil PO 10 mg HS CHAPARRO Administration Rifaximin 550 mg 05/20/19 21:00 05/23/19 10:55 Xifaxan PO 550 mg BID CHAPARRO Administration Sodium Chloride 10 ml 05/20/19 21:00 05/23/19 11:01 Flush - Normal Saline IVF 10 ml Q12HR CHAPARRO Administration Spironolactone 50 mg 05/21/19 21:00 05/23/19 10:48 Aldactone PO 50 mg BID CHAPARRO Administration Triamcinolone Acetonide 0 gm 05/22/19 21:00 05/23/19 11:01 Kenalog 0.1% Cream TOP 1 applic BID CHAPARRO Administration - Exam Eye: PERRL Heart: RRR, no murmur, no gallops, no rubs, normal peripheral pulses Respiratory: CTAB, no wheezes, no rales, no ronchi, normal chest expansion Gastrointestinal: soft, non-tender, non-distended, normal bowel sounds, no palpable masses, no hepatomegaly Extremities: no cyanosis, 1+ LE edema Hosp A/P (1) Hepatic encephalopathy Code(s): K72.90 - HEPATIC FAILURE, UNSPECIFIED WITHOUT COMA Status: Acute (2) UTI (urinary tract infection) Status: Acute Qualifiers: Urinary tract infection type: acute cystitis Hematuria presence: without hematuria Qualified Code(s): N30.00 - Acute cystitis without hematuria (3) Coronary artery disease Code(s): I25.10 - ATHSCL HEART DISEASE OF [place] CORONARY ARTERY W/O ANG PCTRS Status: Chronic Qualifiers: Coronary Disease-Associated Artery/Lesion type: [place] artery [place] vs. transplanted heart: [place] heart Associated angina: without angina Qualified Code(s): I25.10 - Atherosclerotic heart disease of [place] coronary artery without angina pectoris (4) Diabetes type 2, controlled Code(s): E11.9 - TYPE 2 DIABETES MELLITUS WITHOUT COMPLICATIONS Status: Chronic Qualifiers: Diabetes mellitus half-way insulin use: without half-way use Diabetes mellitus complication status: with kidney complications Diabetes mellitus complication detail: with chronic kidney disease Chronic kidney disease stage : stage 3 (moderate) Qualified Code(s): E11.22 - Type 2 diabetes mellitus with diabetic chronic kidney disease; N18.3 - Chronic kidney disease, stage 3 ( moderate) (5) Hypertension Code(s): I10 - ESSENTIAL (PRIMARY) HYPERTENSION Status: Chronic Qualifiers: Hypertension type: essential hypertension (6) Liver cirrhosis Code(s): K74.60 - UNSPECIFIED CIRRHOSIS OF LIVER Status: Chronic Qualifiers: Ascites presence: unspecified (7) Physical deconditioning Code(s): R53.81 - OTHER [place]AISE Status: Chronic (8) Hypothyroidism Code(s): E03.9 - HYPOTHYROIDISM, UNSPECIFIED Status: Chronic Qualifiers: - Plan * Hepatic Encephalopathy- resolved- continue Lactulose * UTI- urine culture is growing Proteus, which unfortunately is resistent to floroquinolones. She has multiple other drug allergies. Will consult ID to see which antibiotic will be ideal in her case, or if she requires continued treatment * HTN- blood pressure is a bit elevated- continue current regimen * DM- blood glucose is stable * Cirrhosis- compensated * Hypothyroidism- clinically euthyroid * Hopefully home later today
[2019-05-23 17:18] VITALS: TEMP 98.6
[2019-05-23 20:05] VITALS: BP 166/72
--- NOTE | 2019-05-24 03:44 | DIS ---
DATE OF ADMISSION: 05/20/2019 DATE OF DISCHARGE: 05/23/2019 PRIMARY CARE PHYSICIAN: Dr. Pedro Amezcua. DISCHARGE DISPOSITION: Home. PRIMARY DISCHARGE DIAGNOSES: 1. Hepatic encephalopathy. 2. Urinary tract infection. 3. Diabetes mellitus, type 2. 4. Severe deconditioning. 5. Coronary artery disease. 6. History of recurrent urinary tract infection. DISCHARGE MEDICATIONS: 1. Please note that lactulose was increased to 30 mL three times a day. 2. Continue rifaximin 550 mg twice daily. 3. Levemir insulin 5 units subcu q.p.m. and 10 units in the a.m. 4. Carvedilol 6.25 mg p.o. twice daily. 5. Aldactone 50 mg twice a day. 6. Paroxetine 10 mg at bedtime. 7. Levothyroxine 88 mcg p.o. daily. 8. Lulu 10/325 q.4 hours as needed. 9. Hydralazine 50 mg p.o. t.i.d. 10. Lasix 40 mg q.a.m. and 20 mg as directed. 11. Iron sulfate 325 mg daily. 12. Calcium carbonate 500 mg plus vitamin D3 twice a day. 13. Aspirin 81 mg daily. 14. Norvasc 10 mg daily. PROCEDURES DONE DURING THIS ADMISSION: The patient had an abdominal ultrasound showing cirrhotic morphology of the liver post cholecystectomy and small volume of ascites. CODE STATUS: Full code. ALLERGIES: TO NAPROSYN, CEFTRIAXONE, HYDROCODONE, AND MEROPENEM. HOSPITAL COURSE: Ms. Sung is a pleasant 79-year-old female, who was admitted to the hospital after she was noted to have confusion and lethargy. She was evaluated in the ER and found to have an elevated ammonia level. She was treated with lactulose and lab work also revealed that she had urinary tract infection. She was initially placed on meropenem based on previous cultures. The urine culture grew Proteus, which was sensitive to the meropenem. However, the patient developed a rash which was fairly generalized and pruritic after being started on the meropenem. This was then switched to ciprofloxacin. The Proteus unfortunately was not sensitive to quinolones. However, she had completed a full course of treatment with the meropenem and therefore, there was no need to change antibiotics. At the time of discharge, she was back to her baseline and was able to be discharged home to have close outpatient followup. She is to follow up with her primary care physician in approximately 1 week. Job ID: [id number]
--- NOTE | 2019-05-24 08:17 | PQF ---
LASHAWN HOLT TONI MD [id number] [facility] [id number] CLINICAL DOCUMENTATION CLARIFICATION FORM: POST DISCHARGE Addendum to original discharge summary date: ____ Late entry note date: __ DATE:05/24/2019 ATTN: CHADD CHOWDHURY MD Please exercise your independent, professional judgment in responding to the clarification form. Clinical indicators are provided on the bottom of this form for your review Please check appropriate box(s) to clarify if the following diagnosis has been ruled in or ruled out: Acute diastolic CHF [X ] Ruled in diagnosis [X ] Continue to treat [ ] Resolved [ ] Ruled out diagnosis [ ] Cannot rule out diagnosis [ ] Other diagnosis [ ] Unable to determine In addition, please specify: Present on Admission (POA): [X ] Yes [ ] No [ ] Unable to determine For continuity of documentation, please document condition throughout progress notes and discharge summary. Thank You. CLINICAL INDICATORS - SIGNS / SYMPTOMS / LABS CHF-Documented in ED on 05/20 by Fabricio Yuen EKG showed sinus bradycardia-Documented in H&P on 05/20 by Kendra, Yesi [id number] in H&P on 05/20 by Kendra, Yesi Wheezing,Peripheral edema-Documented in H&P on 05/20 by Kendra, Yesi Wheezing -possibly from Acute diastolic CHF,None heard on exam.Chest x ray shows mild congestion-Documented in H&P on 05/20 by Kendra, Yesi ECHO 06/2017 showed EF 50-55% with grade II diastolic ,aortic stenosis,moderate MR-Documented in H&P on 05/20 by Kendra, [facility] EKG shows Q wave in lead III-Documented in H&P on 05/20 by Kendra, Yesi RISK FACTORS CAD s/p CABG-Documented in H&P on 05/20 by Kendra, Yesi HTN-Documented in H&P on 05/20 by Yesi Gardner CKD stage V-Documented in H&P on 05/20 by Yesi Gardner TREATMENTS Lasix 40 mg IV-Documented in H&P on 05/20 by Kendra, Yesi [employer] L[employer] Win[employer] Viewer (This form is maintained as a part of the permanent medical record) 2014 [employer]. All Rights Reserved [email or web address] [not provided] MTDD
== END 2019-05-23 20:00 | disposition home health service (06) | DRG 441 ==
LOC: ERS 13:38 → 2NO 18:53
PROVIDERS: ADMIT Internal Medicine; ATTEND Neuromusculoskeletal Medicine & OMM
DX: K72.00 Acute and subacute hepatic failure without coma (principal); I50.31 Acute diastolic (congestive) heart failure; N39.0 Urinary tract infection, site not specified; I13.0 Hypertensive heart and chronic kidney disease with heart failure and stage 1 through stage 4 chronic kidney disease, or unspecified chronic kidney disease; N18.4 Chronic kidney disease, stage 4 (severe); Z16.39 Resistance to other specified antimicrobial drug; I25.10 Atherosclerotic heart disease of native coronary artery without angina pectoris; Z95.1 Presence of aortocoronary bypass graft; F32.9 Major depressive disorder, single episode, unspecified; E11.22 Type 2 diabetes mellitus with diabetic chronic kidney disease; D64.9 Anemia, unspecified; K74.60 Unspecified cirrhosis of liver; E03.9 Hypothyroidism, unspecified; L27.0 Generalized skin eruption due to drugs and medicaments taken internally; T36.1X5A Adverse effect of cephalosporins and other beta-lactam antibiotics, initial encounter; Z90.49 Acquired absence of other specified parts of digestive tract; Z88.1 Allergy status to other antibiotic agents; Z88.5 Allergy status to narcotic agent; B96.4 Proteus (mirabilis) (morganii) as the cause of diseases classified elsewhere
CPT/HCPCS: 36415; 36416; 51701; 71045; 80048; 80053; 81003; 81015; 82140; 83690; 83880; 84484; 85025; 87040; 87077; 87086; 87186; 93005; 93975; 94640; 96374; A4353; J1815; J1940; J2185; J3490; J7620; Q0163

== ENCOUNTER 2019-06-28 08:42 | Inpatient (IN) | payer MEDICARE ==
--- NOTE | 2019-06-28 09:27 | RAD ---
RIGHT SHOULDER 3 VIEWS: Date: 06/28/2019 HISTORY: Fall. Right shoulder pain. FINDINGS/IMPRESSION: No acute fracture or dislocation is seen. POS: OFF
[2019-06-28 09:42] LABS: #Eosinphils 0.1 thou/uL (0.0-0.7); #Monocytes 0.4 thou/uL (0.11-0.59); %Basophils 0.6 % (0.0-1.0); %Eosinophils 2.3 % (0.0-10.0); %Lymphocytes 18.3 % (21.0-51.0); %Neutrophils 71.8 % (42.0-75.0); Hemoglobin 6.2 g/dL (12.0-16.0); Mean Corpuscular HGB CONC 32.3 g/dL (32.0-36.0); Mean Corpuscular Hemoglobin 30.9 pg (27.0-31.0); Mean Corpuscular Volume 95.8 fL (78.0-98.0); Mean Platelet Volume 10.1 fL (7.4-10.4); Platelet Count 56 thou/uL (130-400); RBC Distribution Width 16.2 % (11.5-14.5); Red Blood Cell (RBC) Count 1.99 mill/uL (4.20-5.40); White Blood Cell (WBC) Count 5.6 thou/uL (4.8-10.8)
[2019-06-28 09:55] LABS: ALT (SGPT) 37 U/L (8-55); AST (SGOT) 105 U/L (5-34); Albumin 2.9 g/dL (3.4-4.8); Alkaline Phosphatase 117 U/L (40-110); Anion Gap 20 mmol/L (10-20); BUN (Urea Nitrogen) 61 mg/dL (9.8-20.1); CK (CPK) 650 U/L (29-168); Calc. Creatinine Clearance 0 mL/min (70-130); Calcium 7.3 mg/dL (7.8-10.44); Carbon Dioxide 14 mmol/L (23-31); Chloride 111 mmol/L (98-107); Estimated GFR-MDRD 7; Globulin 3.1 g/dL (2.4-3.5); Glucose 81 mg/dL (83-110); Magnesium 2.4 mg/dL (1.6-2.6); Potassium 5.7 mmol/L (3.5-5.1); Sodium 139 mmol/L (136-145)
[2019-06-28 10:02] LABS: Bite Cells SLIGHT = 2-5 cells (100X) (0-1/hpf); Hypochromia SLIGHT = 6-15 cells (100X) (0-5/hpf); MDiff Complete? YES; Ovalocytes SLIGHT = 2-5 cells (100X) (0-1/hpf); Platelet Morphology Comment Appears Decreased; Polychromasia MODERATE = 3-4 cells (100X) (0-2/hpf)
--- NOTE | 2019-06-28 10:02 | RAD ---
PORTABLE CHEST 1 VIEW: DATE: 06/28/2019. TIME: 9:11 AM. HISTORY: Chest pain, fall. FINDINGS/IMPRESSION: Comparison is made with the exam of 05/20/2019. The heart is enlarged. There are changes of median sternotomy. No lobar consolidation, pneumothorac es, saleem pulmonary edema, or pleural effusions are seen. POS: OFF
[2019-06-28] MEDS ORDERED: Sodium Bicarb 50 MEQ/50 ML VIAL ONE ×2 (11:06→11:09)
[2019-06-28] MEDS ORDERED: Calcium Gluc 4.6 MEQ/10 ML (100 MG/ML) ONE (11:06)
--- NOTE | 2019-06-28 12:11 | CT ---
HEAD CT WITHOUT CONTRAST: DATE: 06/28/2019. COMPARISON: None. HISTORY: Fall, trauma, pain. TECHNIQUE: Axial CT imaging at 5 mm intervals from vertex through the skull base without contrast. FINDINGS: Imaged paranasal sinuses and mastoid air cells well aerated. No displaced calvarial fracture. There is atherosclerotic calcification of the cavernous carotid arteries. There is no intracranial hemorr vicenta, midline shift, mass effect, or ventricular enlargement. Periventricular and deep white matter hypodensity noted, evidence of small-vessel disease. IMPRESSION: No intracranial hemorrhage or displaced calvarial fracture. POS: DARIEN
[2019-06-28] MEDS ORDERED: Albumin 25% 25 GM/100 ML BOT IVPB SCH ×2 (12:15→12:24)
[2019-06-28 12:25] LABS: INR-International Normal Ratio 2.2; PTT 41.5 SEC (22.9-36.1); Prothrombin Time 24.1 SEC (12.0-14.7)
[2019-06-28] MEDS ORDERED: Albuterol Sulfate 1.25 MG/3 ML NEB NEB SCH (12:30)
[2019-06-28] MEDS ORDERED: Albuterol Sulfate 2.5 mg/3 ml Neb ONE (12:36)
[2019-06-28] MEDS ORDERED: hydrALAZINE 20 MG/ML VIAL SLOW IVP PRN (12:56)
[2019-06-28] MEDS ORDERED: Calcium Carbonate 500 MG ChewTAB PO PRN (12:56)
[2019-06-28] MEDS ORDERED: Ondansetron PF 4 MG/2 ML Vial IVP PRN (12:56)
[2019-06-28] MEDS ORDERED: Cepastat Lozenges 1 LOZ PO PRN (12:56)
[2019-06-28] MEDS ORDERED: Bisacodyl 10 MG SUPP PR PRN (12:56)
[2019-06-28] MEDS ORDERED: Artificial Tears 18 DROP/0.9 ML EA EYE PRN (12:56)
[2019-06-28] MEDS ORDERED: Sodium Chloride 0.65% Nasal 44 ML BOT EA NARE PRN (12:56)
--- NOTE | 2019-06-28 13:34 | CON ---
DATE OF CONSULTATION: 06/28/2019 SERVICE: Nephrology. REQUESTING PHYSICIAN: Julissa Sharma MD REASON FOR CONSULTATION: Acute kidney injury and hyperkalemia. HISTORY OF PRESENT ILLNESS: A 79-year-old female with multiple comorbidities including coronary artery disease, hypertension, liver cirrhosis, CKD stage 4, as well as recurrent anemia amongst others, who was just discharged from [facility] few days ago, now presenting after a fall at home associated with mental status change. The patient on presentation was noted to be bradycardic requiring atropine with improvement in heart rate. Further evaluation revealed acute elevation in creatinine from less than 3 few days ago to 5.8 as well as high anion gap metabolic acidosis, hyperkalemia with potassium of 5.7, and acute on chronic anemia with hemoglobin of 6.2. The patient during recent hospitalization at [facility] was felt to have hepatorenal syndrome, hence was treated with albumin and octreotide. She also had GI bleeding for which GI saw the patient. Despite treatment with octreotide and albumin, creatinine was not trending downward, hence Nephrology has recommended transfer to higher center for evaluation of liver cirrhosis as well as psoriasis making a possibility of autoimmune hepatitis as the cause of the cirrhosis, but the patient and relative insisted on leaving and was subsequently discharged home. reportedly stated that the patient has been doing well up until last night when she fell and subsequently had had some confusion. The patient also was noted to have decreased urine output. The patient was discharged from the hospital few days ago on Lasix 40 mg b.i.d. as well as spironolactone 100 mg daily. The patient also takes carvedilol 6.25 mg p.o. b.i.d. There is no history of fever. The patient continued to take lactulose and was having several bowel motions daily. PHYSICAL EXAMINATION: VITAL SIGNS: Blood pressure 137/44, pulse 65, respiratory rate 12, pain 5/10, SpO2 100% on room air. GENERAL: Chronically ill-looking elderly, in no obvious distress. Afebrile. HEENT: Normocephalic, atraumatic. Facial edema noted. NECK: Short, thick neck noted. CARDIOVASCULAR: Regular rhythm and rate. Soft systolic murmur noted. CHEST/RESPIRATORY: Fair air entry bilateral diminished at both bases. No obvious rhonchi or use of accessory muscles appreciated. Ecchymosis of the upper chest anteriorly extending posteriorly also noted. GI: Obese with abdominal wall edema. Mild diffuse tenderness noted. Bowel sound is normoactive. EXTREMITIES: Edema of all the extremities noted especially around the trunk and proximal thigh. [facility] [employer]: The patient is awake and conversational. Oriented to person at least. Some confusion noted. Some memory lapse is also appreciated. SKIN: Scattered plaques and papules without any erythema noticed on the extremities and trunk. DIAGNOSTIC DATA: CBC showed WBC count of 5.6, hemoglobin of 6.2, MCV of 95.8, platelet of 56. Of note, platelet was 111 on May 22 and hemoglobin was 9.2 on May 22. Of note, the patient also received blood transfusion during recent hospitalization at [facility]. CMP showed sodium 139, potassium 5.7, chloride 111, CO2 14, BUN 61, creatinine 5.81, glucose 81, calcium 7.3, total bilirubin 1.0, AST 105, ALT 37, alkaline phosphatase 117, CK 650, total troponin 0.014. BNP 1740, albumin 22.9, total protein 6.0, globulin 3.1. Chest x-ray showed enlarged heart with changes of median sternotomy, but no lobar consolidation, pneumothorax, saleem pulmonary edema or effusion noted. X-ray of right shoulder showed no acute fracture or dislocation. CT scan of the brain showed no intracranial hemorrhage or displaced calvarial fracture. ASSESSMENT: 1. Acute on chronic renal failure: This seems to be multifactorial from volume contraction superimposed on hepatorenal syndrome. 2. Hyperkalemia: Due to renal failure and use of spironolactone. 3. Acute on chronic anemia: Due to possible gastrointestinal bleed as well as bleeding into the skin and subcutaneous tissue. The patient has coagulopathy and low platelet predisposing her to spontaneous bleeding. 4. Chronic kidney disease stage 3/4: Most likely due to hepatorenal with some contribution from prerenal etiology like diuretic therapy and volume contraction. 5. Decompensated liver cirrhosis: Etiology of liver cirrhosis remain unclear, but autoimmune hepatitis seems more likely given psoriasis. 6. Fulminant psoriatic flare up. 7. Bradycardia: Due to beta sandra with some possible contribution from hyperkalemia. 8. Anasarca. 9. Acute metabolic and toxic encephalopathy due to volume contraction, liver decompensation, and renal failure. 10. Physical deconditioning. 11. Fall. 12. Volume contraction. PLAN: 1. We will treat hyperkalemia medically with correction of metabolic acidosis as well as intravascular contraction treatment with albumin. We will also give calcium gluconate, albuterol, and Kayexalate. We will also start the patient on sodium bicarbonate at a lower dose of 50 mL/h given metabolic acidosis. 2. Discussed with the patient's spouse and is open to dialysis. We will consult General Surgery for placement of tunneled dialysis catheter. 3. We will however get coagulation panel and optimize the patient with blood transfusion. 4. We will recheck renal function in the next 6 to 8 hours. 5. Further treatment to follow depending on hospital course. 6. Recommend GI consult for input on decompensated liver cirrhosis. Job ID: [id number]
[2019-06-28 14:03] LABS: Iron 84 ug/dL (50-170); Iron Binding Capacity, Total 223 mcg/dL (265-497)
[2019-06-28] MEDS ORDERED: Dextrose 50% Abboject 50 ML SYRINGE ONE ×2 (14:22→14:27)
[2019-06-28] MEDS ORDERED: Insulin Regular 300 UNITS/3 ML VIAL ONE (14:22)
[2019-06-28] MEDS ORDERED: Vancomycin 1.5 GRAM/300 ML BAG 1.5 GM in Premix Bag 1 BAG IVPB SCH (14:45)
[2019-06-28] MEDS ORDERED: Dextrose 50% Abboject 50 ML SYRINGE SLOW IVP SCH (14:45)
--- NOTE | 2019-06-28 15:30 | HP ---
PRIMARY CARE PHYSICIAN: Dr. Pedro Amezcua. REASON FOR ADMISSION: Symptomatic anemia, sepsis suspected, encephalopathy, and acute on chronic kidney failure. HISTORY OF PRESENT ILLNESS: A 79-year-old female, who has underlying history of coronary artery disease, hypertension, liver cirrhosis, CKD stage 4, as well as recurrent anemia, who was discharged from [facility] days ago. The patient has home caregiver. The patient mostly remained in bed and she only rarely ambulates with a walker. Today, the patient had episode of fall when she was ambulating with a walker as well as the patient was having altered mental status. When she arrived to emergency room, the patient was having slow heart rate, required atropine. The patient was also found with acute kidney failure, hyperkalemia, and metabolic acidosis. The patient was not able to provide any history. Routine blood test also showed hemoglobin 6.2. When the patient was admitted to [facility] Emergency Room, at that time, the patient was treated with hepatorenal syndrome with albumin and octreotide drip. 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 The patient also has underlying psoriasis and the patient developed some allergic reaction to some medication. The patient was confused since yesterday and she was having decreased urine output. The patient was up-to-date in her medication and she was discharged with Lasix and Aldactone as well as lactulose. EMERGENCY ROOM COURSE: The patient was treated with albumin 125%, Levaquin 750 mg, vancomycin, Novolin R 10 units, dextrose, D50 one ampule, albuterol inhalation, calcium gluconate, and sodium bicarbonate. 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 PAST SURGICAL HISTORY: CABG, hysterectomy, ankle surgery, cardiac ablation, and liver biopsy. PAST PSYCHIATRIC HISTORY: Anxiety and depression. FAMILY HISTORY: No strong family history of premature coronary artery disease, stroke, or cancer. SOCIAL HISTORY: The patient is , lives at home with family. She has caregiver. No history of tobacco, alcohol, or illicit drug abuse. ALLERGIES: HYDROCODONE, NAPROXEN, ROCEPHIN, AND MEROPENEM. CURRENT HOME MEDICATIONS: The patient's family member did not bring any home medication from home, so unable to review at this point, but at this point based on our previous hospital record, the patient is on following medication: 1. Amlodipine 10 mg daily. 2. Aspirin 81 mg daily. 3. Ferrous sulfate 325 mg daily. 4. Calcium carbonate one tablet daily. 5. Lasix 40 mg p.o. b.i.d. 6. Synthroid 88 mcg p.o. daily. 7. Hydralazine 50 mg t.i.d. 8. Paroxetine 10 mg p.o. at bedtime. 9. Aldactone 100 mg daily. 10. Coreg 6.25 mg b.i.d. 11. Levemir insulin 10 units in the morning and 5 units at bedtime. 12. Lactulose 30 g p.o. t.i.d. 13. Rifaximin 550 mg p.o. daily. REVIEW OF SYSTEMS: All review of systems tried to review with the patient, but unable to review because of altered mental status. All review of systems tried to review with the patient, but unable to review at this point because of encephalopathy. Additional information, the patient was becoming hypothermic in the emergency room and that is why we changed her service from telemetry to IMCU and we started empiric antibiotic therapy after blood culture and urine culture. PHYSICAL EXAMINATION: VITAL SIGNS: Currently vital signs; blood pressure 108/48, pulse 55, respiratory rate 12, temperature 92.4, and saturation 100% on room air. Weight 86.2 kg. GENERAL: The patient is encephalopathic, bradycardic initially, confused, drowsy, but arousable, uncomfortable. HEENT: Head, normocephalic and atraumatic. Eyes, pupils are round and reactive to light. Extraocular muscle intact. Mild icterus noted. ENT, poor dentition. Dry mucous membranes. No oral lesion. No pharyngeal erythema. No exudate. NECK: Supple. No JVD. No meningeal signs of irritation. LUNGS: Bilateral coarse breath sound. The patient also has diffuse ecchymosis over anterior chest. CARDIAC: S1 and S2. Initially bradycardic and subsequently improved. No murmur. No gallop. No rub. ABDOMEN: Obesity present. Bowel sounds present on deep palpation. Vague abdominal discomfort noted, but no peritoneal sign. No guarding. No rigidity. No rebound. BACK: Unremarkable. No CVA tenderness. EXTREMITIES: Upper extremities, passive movement of all joints are normal. Lower extremity, bilateral pitting edema noted. SKIN: The patient does have diffuse psoriatic skin rash over chest, upper extremity, and lower extremity. PSYCHIATRIC: Unable to assess at this point. NEUROLOGIC: She moves all 4 limbs. No focal neurological deficit noted. SIGNIFICANT LABORATORY DATA: EKG showing sinus bradycardia, prolonged QT interval. CT brain based on my review no acute intracranial hemorrhage. Chest x-ray showing cardiomegaly. No acute process. Shoulder x-ray negative for any fracture or dislocation. Significant labs; WBC 5.6, hemoglobin 6.2, and platelets 56. BMP; sodium 139, potassium 5.7, chloride 111, carbon dioxide 14, anion gap 20, BUN 61, creatinine 5.81, glucose 81, calcium 7.3, and magnesium 2.4. Iron 84, TIBC 223, percent saturation 38. LFT; bilirubin 1.0, AST 105, ALT 37, alkaline phosphatase 117, and ammonia 37. CK of 650, troponin I 0.014, and BNP 1740. Protein 6.0, albumin 2.9, and TSH 1.05. INR 2.2. ASSESSMENT AND PLAN: 1. Acute metabolic encephalopathy. The patient has acute kidney failure, hyperkalemia, metabolic acidosis, and severe anemia as well as abnormal LFT contributing to her altered mental status without any focal neurological deficit and CT brain is unremarkable. 2. Acute on chronic kidney failure. The patient's creatinine has been elevated to 5.81 from 2.20. Nephrology already evaluated this patient. The patient has an associated hyperkalemia and metabolic acidosis. The patient is already treated for hyperkalemia in the emergency room and the patient is started on bicarbonate drip. The patient is also given albumin, suspecting from hepatorenal syndrome and that is why octreotide drip started as well as albumin is given. The patient may need hemodialysis, but that decision will defer to Nephrology. 3. Acute on chronic diastolic heart failure. Unfortunately, because of renal failure and low blood pressure, the patient is not a candidate for diuretic therapy. The patient has elevated BNP that could be from renal failure. The patient has bilateral lower extremity edema. 4. Cirrhosis with autoimmune disorder. The patient is currently treated with octreotide drip and albumin and empiric antibiotic therapy for possible spontaneous bacterial peritonitis. Gastroenterology team will be consulted. 5. Sepsis with acute organ dysfunction. The patient has hypothermia, altered mental status, renal failure, suspected from underlying infection and that is why, we will do hobbs culture, urine culture, blood culture, and we will keep this patient in IMCU. Yong Hugger will be initiated and the patient will be given empiric antibiotic therapy with Levaquin and vancomycin. 6. Hyperkalemia. The patient is already treated for hyperkalemia cocktail treatment in the emergency room. We will repeat labs later on today. 7. Severe symptomatic anemia. The patient has received a unit of blood transfusion in the emergency room and we will repeat CBC tomorrow. We will check stool for guaiac. Gastroenterology will be consulted. Anemia study consistent with anemia of chronic disease. 8. Metabolic acidosis. The patient is receiving bicarbonate as per Nephrology. 9. Psoriasis. The patient will get skin care. 10. Pancytopenia. The patient has early thrombocytopenia and that is why we will avoid any heparin product that is related with underlying cirrhosis, coagulopathy due to liver disease. 11. Obesity with BMI greater than 30. 12. Physical deconditioning. 13. Deep venous thrombosis prophylaxis, sequential compression devices boots. No Lovenox because of low platelet count. Gastrointestinal prophylaxis, Protonix 40 mg IV daily. 14. Code status. I spoke with the patient's at bedside in the emergency room. The patient is full code. Because of the patient's multiple comorbidities and poor prognosis, we will consult Palliative Care for goal of care. DISPOSITION PLAN: Based on clinical course. If the patient's condition improves, then we will consider PT/OT evaluation and possibly this patient may need placement. Once home medication verified, then we will resume selected blood pressure medication and her home medication as indicated. Plan of care discussed with the patient and her at bedside in detail. Job ID: [id number]
[2019-06-28 20:22] LABS: #Eosinphils 0.1 thou/uL (0.0-0.7); #Lymphocytes 0.9 thou/uL (1.20-3.40); #Monocytes 0.2 thou/uL (0.11-0.59); #Neutrophils 3.3 thou/uL (1.40-6.50); %Basophils 0.7 % (0.0-1.0); %Lymphocytes 20.2 % (21.0-51.0); %Neutrophils 72.1 % (42.0-75.0); Hemoglobin 8.3 g/dL (12.0-16.0); Mean Corpuscular HGB CONC 32.4 g/dL (32.0-36.0); Mean Corpuscular Hemoglobin 30.1 pg (27.0-31.0); Mean Corpuscular Volume 92.9 fL (78.0-98.0); Mean Platelet Volume 9.8 fL (7.4-10.4); Platelet Count 53 thou/uL (130-400); RBC Distribution Width 15.7 % (11.5-14.5); Red Blood Cell (RBC) Count 2.74 mill/uL (4.20-5.40); White Blood Cell (WBC) Count 4.6 thou/uL (4.8-10.8)
[2019-06-28 20:38] LABS: Anion Gap 20 mmol/L (10-20); BUN (Urea Nitrogen) 60 mg/dL (9.8-20.1); Calc. Creatinine Clearance 0 mL/min (70-130); Calcium 7.7 mg/dL (7.8-10.44); Carbon Dioxide 14 mmol/L (23-31); Chloride 111 mmol/L (98-107); Estimated GFR-MDRD 7; Potassium 5.3 mmol/L (3.5-5.1); Sodium 140 mmol/L (136-145)
[2019-06-28 20:44] LABS: Glucose 57 mg/dL (83-110)
[2019-06-28] MEDS ORDERED: Vancomycin HCl 500 MG in Sodium Chloride 0.9% 100 ML IVPB SCH (23:30)
[2019-06-28] MEDS ORDERED: Morphine 2 MG/ML SYRINGE SLOW IVP SCH (23:30)
[2019-06-28] MEDS: Octreotide Acetate 1,250 MCG in Sodium Chloride 0.9% 250 ML 250 ML IVPB SCH (23:57)
[2019-06-29] MEDS: Sodium Bicarbonate 150 MEQ in Dextrose 5% in Water 1,000 ML IV SCH ×2 (00:02→00:03)
[2019-06-29] MEDS: Albumin 25% 25 GM/100 ML BOT IVPB SCH ×6 (00:17→12:54)
[2019-06-29 03:37] LABS: Anisocytosis SLIGHT = 6-15 cells (100X) (0-5/hpf); Band 22 % (5-11); Lymphocytes 12 % (21-51); MDiff Complete? YES; Mean Corpuscular HGB CONC 34.1 g/dL (32.0-36.0); Mean Corpuscular Hemoglobin 31.6 pg (27.0-31.0); Mean Corpuscular Volume 92.7 fL (78.0-98.0); Mean Platelet Volume 10.3 fL (7.4-10.4); Neutrophil 66 % (42-75); Platelet Count 46 thou/uL (130-400); Platelet Morphology Comment Appears Decreased; RBC Distribution Width 15.7 % (11.5-14.5); Red Blood Cell (RBC) Count 2.51 mill/uL (4.20-5.40); White Blood Cell (WBC) Count 6.1 thou/uL (4.8-10.8)
[2019-06-29 03:48] LABS: ALT (SGPT) 34 U/L (8-55); AST (SGOT) 85 U/L (5-34); Albumin 3.3 g/dL (3.4-4.8); Alkaline Phosphatase 104 U/L (40-110); Anion Gap 22 mmol/L (10-20); BUN (Urea Nitrogen) 61 mg/dL (9.8-20.1); Calc. Creatinine Clearance 11 mL/min (70-130); Calcium 7.7 mg/dL (7.8-10.44); Carbon Dioxide 13 mmol/L (23-31); Chloride 109 mmol/L (98-107); Estimated GFR-MDRD 7; Globulin 2.9 g/dL (2.4-3.5); Glucose 57 mg/dL (83-110); Potassium 5.5 mmol/L (3.5-5.1); Protein, Total 6.2 g/dL (6.0-8.3); Sodium 138 mmol/L (136-145)
[2019-06-29] MEDS ORDERED: Dextrose 50 % In Water 50 ML SYRINGE ONE (03:55)
[2019-06-29] MEDS: Pantoprazole 40 MG VIAL IVP SCH (08:58)
--- NOTE | 2019-06-29 10:53 | PRG ---
DATE OF SERVICE: 06/29/2019 SUBJECTIVE: The patient is seen and examined at the bedside. Her is present in the room during my visit. She is still very encephalopathic. She is arousable, but not able to communicate with me at all. She does not follow my commands. OBJECTIVE: VITAL SIGNS: Blood pressure is 154/38, pulse is 58, respiratory rate is 12, O2 saturation is 95% on room air. HEENT: She has nonicteric sclerae. Conjunctivae are pale. Oral mucosa, there are some signs of small amount of blood in her mouth. LUNGS: Breath sounds diminished at both bases. HEART: S1 and S2 normal. No S3. No S4. ABDOMEN: Soft, nondistended. EXTREMITIES: No clubbing or cyanosis. There is 1+ peripheral edema similar bilateral on both lower extremities. NEUROLOGIC: She does not follow my commands. She is able to move her all 4 extremities. LABORATORY DATA: White count of 6.1, hemoglobin 8.0, hematocrit 23.3, platelet count is 46, bands 22. Sodium of 138, potassium 5.5, chloride 109, CO2 of 13, BUN 61, creatinine 5.84, glucose 57 to 114, calcium 7.7, total bilirubin 2.0, AST 85, ALT 34, alkaline phosphatase 104, albumin 2.3, globulin 2.9. IMPRESSION: 1. Acute metabolic encephalopathy. 2. Acute on chronic kidney failure. 3. Acute on chronic diastolic heart failure. 4. Questionable liver cirrhosis, presumed secondary to autoimmune disease with liver biopsy, not showing features of cirrhosis. 5. Severe anemia, status post transfusion of 2 units of packed red blood cells. Hemoglobin is 8.3 this morning. 6. Hypothermia suggestive of possible sepsis, bands elevated to 22. 7. Hyperkalemia. 8. Metabolic acidosis secondary to renal failure. 9. Psoriasis. 10. Pancytopenia. 11. Physical deconditioning. PLAN: General Surgery is consulted and we are going to have the line placed for dialysis. She will be started on dialysis. The case was discussed with Dr. Russo, her steam bone press tender during this hospitalization. We will increase her IV drip with bicarb to 75 mL/h since she is still acidotic. We will continue her IV antibiotics for now. GI evaluation is pending. We will continue her octreotide for now. We will get hemoglobin and hematocrit now, then tomorrow morning. We will obtain renal ultrasound. Maicol ID: [id number]
--- NOTE | 2019-06-29 11:30 | CON ---
DATE OF CONSULTATION: 06/29/2019 This encompassed 70 minutes of time, of that time, greater than 50% was spent with the patient and/or the patient's unit in the hospital. REASON FOR CONSULTATION: IMCU placement. HISTORY OF PRESENT ILLNESS: This is a 79-year-old who was admitted to the hospital yesterday. She came in with altered mental status. She has a history of hepatic encephalopathy from liver cirrhosis. She was recently at [facility]. The family does not think she was well when she was discharged. At this facility, she was brought in because she was falling at home. When she got here apparently, she was bradycardic, requiring some atropine. She was found to have new-onset kidney issues with hyperkalemia and metabolic acidosis. She is also found to be profoundly anemic. PAST MEDICAL HISTORY: 1. 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 2. Many episodes of hepatic encephalopathy. 3. Diabetes mellitus, type 2. 4. Hypertension. 5. Chronic kidney disease, stage 3. 6. Psoriasis. 7. Coronary artery disease. 8. Deconditioning. PAST SURGICAL HISTORY: 1. Coronary artery bypass grafting surgery. 2. Hysterectomy. 3. Right ankle surgery. 4. Cardiac ablation. ALLERGIES: NAPROSYN, HYDROCODONE, CEFTRIAXONE, ACETAMINOPHEN, AND MEROPENEM. FAMILY MEDICAL HISTORY: Unremarkable. SOCIAL HISTORY: She has no history of alcohol, tobacco, or illicit drug abuse. REVIEW OF SYSTEMS: Cannot be obtained because the patient has altered mental status. PHYSICAL EXAMINATION: VITAL SIGNS: Temperature 97.4, pulse 58, blood pressure , and O2 saturation 95%. GENERAL: She appears acutely ill. She is moaning. HEENT: Pupils react. Oropharynx has some dry blood. NECK: No adenopathy or JVD. CHEST: She has diffuse red purple rash almost looks like bruising on her upper torso. She has extensive psoriatic changes throughout the rest of her skin. The psoriatic changes appear chronic. LUNGS: Clear to auscultation. CARDIAC: S1 and S2, regular. ABDOMEN: Soft, obese, nontender. EXTREMITIES: Psoriatic changes noted. LABORATORY DATA: Sodium 138, potassium 5.5, chloride 109, CO2 of 13, BUN 61, creatinine 5.8, glucose 57, AST 85, ALT 34, albumin 3.3. White blood cell count 6.1, hematocrit 23.3, and platelet count 46. IMAGING DATA: Chest x-ray shows cardiomegaly without evidence of mass, effusion, or infiltrate. ASSESSMENT: 1. Acute on chronic renal failure with anuria. 2. Metabolic acidosis secondary to renal failure. 3. History of cirrhosis with repeated episodes of hepatic encephalopathy. 4. Anemia. 5. Psoriasis. PLAN: 1. She is going to receive dialysis. I would recommend restarting her hepatic encephalopathy medications as she is at high risk to have recurrence. 2. She is currently on Levaquin and vancomycin for antibiotic coverage. 3. I would consider further evaluation for the rash as this does not look secondary to a fall. Job ID: [id number]
--- NOTE | 2019-06-29 11:42 | ULT ---
Exam: Bilateral renal ultrasound HISTORY: Anuria COMPARISON: 12/13/2018 FINDINGS: Limited evaluation due to body habitus. Right kidney: Normal cortical echotexture. No hydronephrosis. 2.5 x 1.8 x 3.5 cm parapelvic cyst. Right kidney measurements: 9.6 x 5.4 x 4.1 cm. Left kidney: Normal cortical echotexture. No hydronephrosis Left kidney measurements 5.7 x 4.9 x 4.1 cm. Urinary bladder: Normal mucosa. IMPRESSION: Limited evaluation due to body habitus. No evidence of hydronephrosis.
[2019-06-29] MEDS ORDERED: Lidocaine 1% (PF) 30 ML VIAL ONE (12:17)
[2019-06-29] MEDS: Octreotide Acetate 1,250 MCG in Sodium Chloride 0.9% 250 ML 250 ML IVPB SCH (12:55)
[2019-06-29] MEDS ORDERED: Heparin 10,000 UNITS/1 ML VIAL ONE (13:20)
[2019-06-29 13:24] LABS: HBSAg Index 0.48 S/CO (0-0.99); Hep B Surf Ag Non-Reactive S/CO (NonReactive)
--- NOTE | 2019-06-29 13:43 | CON ---
DATE OF CONSULTATION: HISTORY OF PRESENT ILLNESS: Sowmya Sung is a 79-year-old female with cirrhosis and end-stage renal disease. I have been asked by Nephrology to place a dialysis catheter to initiate dialysis. She is morbidly obese. She is encephalopathic. She has insulin-dependent diabetes and hypertension. They currently are doing a renal ultrasound and ultrasound vein mapping arms. Plan placement of a groin femoral catheter to initiate dialysis, and later this week, probably Thursday, plan placement of a cuffed tunneled dialysis catheter, probable central line, and perhaps right or left arm dialysis access pending vein mapping. I have discussed with the patient and family. They consented. ALLERGIES: NAPROXEN, CEFTRIAXONE, ACETAMINOPHEN, AND HYDROCODONE. HABITS: Tobacco, none. Alcohol, none. PAST MEDICAL HISTORY: 1. Autoimmune cirrhosis. 2. Recurrent hepatic encephalopathy. 3. Metabolic syndrome. 4. Morbid obesity. 5. Diabetes mellitus, type 2. 6. Hypertension. 7. Psoriasis. 8. Coronary artery disease. 9. Facial deconditioning. PAST SURGICAL HISTORY: 1. Coronary artery bypass grafting. 2. Hysterectomy. 3. Ankle surgery. 4. Cardiac ablation. 5. Liver biopsy. SOCIAL HISTORY: The patient lives with her family. MEDICATIONS: 1. Amlodipine. 2. Aspirin. 3. Iron sulfate. 4. Calcium. 5. Lasix. 6. Synthroid. 7. Hydralazine. 8. Paroxetine. 9. Aldactone. 10. Coreg. 11. Levemir insulin. 12. Lactulose. 13. Rifaximin. PHYSICAL EXAMINATION: GENERAL: The patient is encephalopathic and not capable to give a history. History is taken from the chart and the family. VITAL SIGNS: Height 5 feet 5 inches, weight 189 pounds, 31 BMI, blood pressure 119/63, and pulse 57. HEAD, EARS, EYES, NOSE, AND THROAT: Unremarkable. LUNGS: Clear to auscultation. CARDIAC: Regular rate and rhythm without murmur or gallop. ABDOMEN: Soft, obese, nontender, edematous. EXTREMITIES: Palpable radial pulses. Morbid obesity. LABORATORY DATA: White count 6, hemoglobin 8, and platelet count 46,000. PT 24 and INR 2.2. Sodium 138, potassium 5.5, carbon dioxide 13, BUN 61, creatinine 5.84, and GFR of 7. Bilirubin 2. ASSESSMENT AND PLAN: 1. End-stage renal disease, acidosis, and encephalopathic. Encephalopathy is attributed both by her renal and liver failure. Liver failure is chronic. We will plan placement of bedside femoral catheter. This will allow initiation of dialysis. We will place a cuffed-tunneled dialysis catheter later the week. 2. Acidosis related to end-stage renal disease and uremia. 3. Hepatic encephalopathy from cirrhosis with chronic liver disease, autoimmune etiology. 4. Morbid obesity. 5. Metabolic syndrome. 6. Diabetes mellitus. 7. Hypertension. Job ID: [id number]
--- NOTE | 2019-06-29 13:48 | OP ---
DATE OF PROCEDURE: 06/29/2019 PREOPERATIVE DIAGNOSES: 1. Morbid obesity. 2. Acidosis. 3. Cirrhosis, autoimmune, bilirubin at 2. 4. Thrombocytopenia, platelet count 47,000. 5. Ecchymosis. 6. Edematous. 7. Chronic renal failure. 8. Diabetes. 9. Metabolic syndrome. PROCEDURE PERFORMED: Right femoral vein dialysis catheter, Trialysis. ANESTHESIA: 1% Xylocaine. DESCRIPTION OF PROCEDURE: With the patient at bedside, the right groin was prepared with ChloraPrep and draped in routine fashion. Local anesthetic was infiltrated in the skin and subcutaneous tissue and Seldinger technique was used to place a Trialysis catheter, removing the J-wire, securing the catheter with 3-0 nylon. Sterile dressing applied. Each port aspirated blood, flushed with heparinized saline solution. The patient tolerated the procedure well. Job ID: [id number]
--- NOTE | 2019-06-29 15:09 | CON ---
DATE OF CONSULTATION: 06/29/2019 REASON FOR CONSULTATION: Decompensated liver disease. HISTORY OF PRESENT ILLNESS: Sowmya Sung is a 79-year-old woman, patient of my GI colleague, Dr. Henri Escobedo, who was admitted to the hospital yesterday with recurrent encephalopathy, acidosis, and acute on chronic renal failure. Dr. Escobedo has worked her up for liver disease over the past year. The patient had a liver biopsy, which actually was essentially unrevealing and did not demonstrate much fibrosis, but sinusoidal dilation. 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 She was recently hospitalized in [place] in late May with anemia, single episode of hematochezia and renal failure. She underwent an upper endoscopy at that time, which was essentially negative except for some portal hypertensive gastropathy. She was treated for hepatorenal syndrome with IV octreotide and albumin and discharged on her diuretics. Her states that she did well for several days with clear mental status and good medication compliance, but then within the past couple of days, started having recurrent worsening altered mental status, several falls at home. Upon presentation yesterday, she was found to be acidotic with worsening renal failure. Creatinine is now up to 5.6. She had some decline in hemoglobin again to 6.2, but this has come up to 8.3 with 2 units RBC transfusion. A dialysis catheter was placed earlier today and the plan is to initiate dialysis. The patient remains encephalopathic, but afebrile and hemodynamically stable. There has been no report of any overt bleeding. FOBT is actually negative. She is being treated with vancomycin and Levaquin. 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 FAMILY HISTORY: Negative for GI malignancy. SOCIAL HISTORY: No smoking, alcohol, or drug use. ALLERGIES: MEROPENEM, EVIDENTLY CAUSED RASH. MEDICATIONS: 1. Lactulose 20 g q.i.d. 2. Octreotide 100 mcg/hour. 3. Protonix 40 mg IV daily. 4. Vancomycin 500 mg every 24 hours. 5. Levofloxacin 500 mg every 48 hours. 6. Rifaximin 550 mg by mouth twice daily. REVIEW OF SYSTEMS: Unable to obtain as the patient is encephalopathic and unresponsive. PHYSICAL EXAMINATION: VITAL SIGNS: Temperature 97.5, heart rate 54, blood pressure 119/45, and oxygen saturation 97% on room air. GENERAL: Encephalopathic, unresponsive, chronically ill, but in no apparent distress. SKIN: No jaundice. She has psoriatic rash involving all extremities and the neck and trunk. EYES: No scleral icterus. ENT: Mucous membranes moist. No oral lesions. LYMPH: No submandibular lymphadenopathy. THYROID: Nontender to palpation. HEART: Regular, bradycardia. LUNGS: Clear to auscultation bilaterally. ABDOMEN: Nondistended. Bowel sounds present. Soft and nontender to palpation. EXTREMITIES: No peripheral edema. LABORATORY STUDIES: Hemoglobin 8.0, stable today following transfusion yesterday, admission hemoglobin was 6.2; MCV 95.8; WBC of 6.1; and platelets 46. INR 2.2. Sodium 138, potassium 5.5, BUN 61, creatinine 5.84, glucose 105, calcium 7.7, total bilirubin up to 2.0, alkaline phosphatase 104, AST 85, ALT 34, and albumin 3.3. Cortisol 14.6. FOBT negative. ASSESSMENT AND PLAN: 1. Cirrhosis secondary to nonalcoholic steatohepatitis, decompensated. MELD score calculates out to 35, which does signify a poor prognosis. Specifically, with the development of renal failure, now moving towards dialysis, as well as the coagulopathy with INR of 2.2. 2. Hepatic encephalopathy, recurrent. Current encephalopathy is likely multifactorial. This episode is despite compliance with both lactulose and rifaximin. Continue lactulose and rifaximin. Proceed with dialysis as planned. 3. Acute on chronic renal failure. This has been characterized as hepatorenal syndrome. Appreciate Nephrology assistance, dialysis as planned. 4. Anemia, chronic. The patient had recent negative upper endoscopy except for finding of portal hypertensive gastropathy. There were no varices reported on that exam. There is no overt bleeding here. FOBT is negative. Continue to monitor H and H. Agree with acid suppression. GI will follow along. Dr. Escobedo is returning tomorrow. Please call anytime with questions or concerns. Job ID: [id number]
--- NOTE | 2019-06-29 15:13 | ULT ---
VENOUS DUPLEX SONOGRAM FOR VEIN MAPPING: HISTORY: Renal failure. Need for long-term dialysis access. FINDINGS: Edema is evident throughout the subcutaneous tissues of each arm. Good color and spectral Doppler wilner w within the internal jugular and subclavian veins and within the axillary, brachial, basilic and cephalic veins. Measurements are as follows: RIGHT Brachial artery 4 mm RIGHT CEPHALIC VEIN Proximal humerus 4 Mid humerus 5 Distal humerus 3 Antecubital fossa 4 Proximal forearm 1 Mid forearm 1 Distal forearm 1 RIGHT BASILIC VEIN Proximal humerus 3 Mid humerus 4 Distal humerus 4 Antecubital fossa 3 Proximal forearm 1 Mid forearm 2 Distal forearm 2 LEFT Brachial artery 5 Radial artery 2 Ulnar artery 1 LEFT CEPHALIC VEIN Proximal humerus 2 Mid humerus 2 Distal humerus 1 Antecubital fossa 1 Proximal forearm 2 Mid forearm 2 Distal forearm 2 LEFT BASILIC VEIN Proximal humerus 3 Mid humerus 3 Distal humerus 4 Antecubital fossa 5 Proximal forearm 3 Mid forearm 2 Distal forearm 1 IMPRESSION: Patent vascular structures within each upper extremity. Measurements are as detailed above. Transcribed Date/Time: 06/29/2019 3:33 PM
[2019-06-29 16:40] LABS: Anion Gap 22 mmol/L (10-20); BUN (Urea Nitrogen) 61 mg/dL (9.8-20.1); Calc. Creatinine Clearance 10 mL/min (70-130); Calcium 7.6 mg/dL (7.8-10.44); Carbon Dioxide 17 mmol/L (23-31); Chloride 107 mmol/L (98-107); Estimated GFR-MDRD 7; Glucose 103 mg/dL (83-110); Potassium 5.6 mmol/L (3.5-5.1); Sodium 140 mmol/L (136-145)
[2019-06-29 18:41] LABS: Vancomycin, Random 11.3 ug/mL (See Comment)
[2019-06-29] MEDS ORDERED: Vancomycin HCl 750 MG in Sodium Chloride 0.9% 250 ML 250 ML IVPB SCH (19:30)
[2019-06-29] MEDS: Rifaximin 550 MG TAB PO SCH ×2 (22:01→22:10)
[2019-06-29] MEDS: Fentanyl 100 MCG/2 ML VIAL SLOW IVP PRN (22:56)
[2019-06-30] MEDS: Octreotide Acetate 1,250 MCG in Sodium Chloride 0.9% 250 ML 250 ML IVPB SCH ×2 (00:52→11:10)
[2019-06-30] MEDS ORDERED: Lorazepam 2 MG/ML VIAL SLOW IVP SCH ×2 (02:00→23:45)
[2019-06-30 04:06] LABS: Hemoglobin 6.9 g/dL (12.0-16.0)
[2019-06-30 04:38] LABS: Mean Corpuscular HGB CONC 32.5 g/dL (32.0-36.0); Mean Corpuscular Hemoglobin 29.8 pg (27.0-31.0); Mean Corpuscular Volume 91.9 fL (78.0-98.0); Platelet Count 57 thou/uL (130-400); RBC Distribution Width 15.9 % (11.5-14.5); Red Blood Cell (RBC) Count 2.29 mill/uL (4.20-5.40)
[2019-06-30 05:03] LABS: Band 14 % (5-11); Eosinophils 4 % (0-10); Lymphocytes 16 % (21-51); MDiff Complete? YES; Metamyelocyte 1 % (0-0); Monocytes 4 % (0-10); Neutrophil 61 % (42-75); Nucleated RBC 7 % (0); Polychromasia SLIGHT = 2-3 cells (100X) (0-2/hpf); White Blood Cell (WBC) Count 6.2 thou/uL (4.8-10.8)
[2019-06-30] MEDS ORDERED: Dextrose 50 % In Water 50 ML SYRINGE ONE (06:11)
--- NOTE | 2019-06-30 07:17 | PRG ---
DATE OF SERVICE: 06/29/2019 SERVICE: Nephrology. SUBJECTIVE: A 79-year-old female with CKD stage 4, decompensated liver cirrhosis with anasarca with current metabolic encephalopathy from UTI and hyperammonemia, admitted with some confusion after a fall. The patient with recent creatinine of 2.9 on June 20, was found to have elevated creatinine of 5.81 on presentation associated with hyperkalemia. Impression of hepatorenal syndrome was made as well as some volume contraction, giving treatment with diuretics. The patient was started on albumin as well as octreotide as well as medical management of hyperkalemia. However, overnight, there is no significant change in renal function or in hyperkalemia. However, the patient actually is more encephalopathic, more confused. There is no history of fever. Still very oliguric. OBJECTIVE: VITAL SIGNS: Temperature 97.4, pulse 54, respiratory rate 13, SpO2 of 95% on room air, and blood pressure is 118/44. GENERAL: Chronically ill-looking elderly female, in no obvious distress. Afebrile. Acyanotic. HEENT: Normocephalic, atraumatic. Mild facial swelling noted. CARDIOVASCULAR: Regular rhythm, but bradycardic. RESPIRATORY: Decreased air entry at both bases with some transmitted breath sounds. GI: Abdomen is obese with edema of abdominal wall. EXTREMITIES: Edema of all the extremities noted. SKIN: Scattered flakes and papules with some desquamation noted. Some ecchymosis also is noted on the anterior upper chest extending posteriorly. SALES ENABLEMENT SPECIALIST: The patient is awake. Oriented to person at least. Some confusion and memory lapses noted. DIAGNOSTIC DATA: CBC showed WBC count of 6.1, hemoglobin of 8.0, MCV of 92.7, and platelet of 46. Of note, hemoglobin was 6.2 on presentation. The patient is status post transfusion of 2 packed red blood cells. Coagulation panel on June 28 showed PT 24.1, INR 2.2, and PTT 41.5. CMP today showed sodium 138, potassium 5.5, chloride 109, CO2 13, BUN 61, creatinine 5.84, glucose 57, and calcium 7.7. Total bilirubin 2.0, AST 85, ALT 34, and alkaline phosphatase 104. Renal ultrasound performed earlier today showed normal cortical echotexture of right kidney measuring 9.6 x 5.4 x 4.1. A 2.5 x 1.8 x 3.5 parapelvic cyst is noted on the right kidney. Left kidney showed normal cortical echotexture with no hydronephrosis measuring 5.7 x 4.9 x 4.1. ASSESSMENT: 1. Acute on chronic renal failure: Most likely due to hepatorenal syndrome with possible contribution from volume depletion. The patient is currently anuric. Urine output has been very minimal in the last 24 hours. Despite intravascular expansion with albumin and crystalloid. 2. Hyperkalemia: Persistent despite medical management. 3. Metabolic acidosis: a. Anasarca. b. Decompensated liver cirrhosis. c. Psoriasis flake. 4. Acute encephalopathy: Due to both uremic and hepatic factors. 5. Acute on chronic blood loss anemia. 6. Coagulopathy from liver cirrhosis. PLAN: 1. General Surgery consult has been requested for dialysis catheter placement. Once dialysis access is available, we will go ahead and initiate the patient on hemodialysis given persistent hyperkalemia and uremic encephalopathy as well as anasarca. We will dialyze the patient for 2 hours today with UF as tolerated. 2. We will continue octreotide and albumin. 3. We will await GI input as the renal failure is clearly driven by decompensated liver cirrhosis. 4. Further treatment to follow depending on hospital course. Job ID: [id number]
--- NOTE | 2019-06-30 08:55 | PRG ---
DATE OF SERVICE: 06/30/2019 SUBJECTIVE: The patient is sleeping, does not appear to be in any distress. OBJECTIVE: VITAL SIGNS: Temperature 96.4, pulse 79, blood pressure 114/52, and O2 saturation 95% on room air. Intake 1064 and output not recorded. HEENT: Unremarkable. NECK: No adenopathy or JVD. CHEST: Still has a rash over the chest, but does not look near as acute as yesterday. LUNGS: Clear. CARDIAC: S1 and S2. Regular. ABDOMEN: Soft. EXTREMITIES: Edematous with chronic psoriatic changes. LABORATORY DATA: White blood cell count 6.2, hematocrit 21.1, and platelet count 57. Sodium 140, potassium 5.6, BUN 61, creatinine 6.1, and glucose 103. ASSESSMENT: 1. Acute on chronic renal insufficiency with anuria. 2. Metabolic acidosis. 3. Renal failure. 4. Cirrhosis with repeated episodes of hepatic encephalopathy. 5. Anemia. 6. Psoriasis. PLAN: 1. She is on hemodialysis. 2. She will continue her Xifaxan and lactulose for her history of hepatic encephalopathy. 3. We need to monitor her electrolytes. 4. At the current time, she is not stable to move out of the [facility]. Job ID: [id number]
[2019-06-30] MEDS ORDERED: Sodium Bicarbonate 150 MEQ in Dextrose 5% in Water 1,000 ML IV SCH (09:00)
[2019-06-30] MEDS ORDERED: Lorazepam 2 MG/ML VIAL SLOW IVP PRN (09:08)
[2019-06-30] MEDS: Pantoprazole 40 MG VIAL IVP SCH ×2 (09:34→21:45)
[2019-06-30] MEDS: Rifaximin 550 MG TAB PO SCH ×2 (09:44→21:44)
[2019-06-30] MEDS: Albumin 25% 25 GM/100 ML BOT IVPB SCH ×3 (11:10→23:52)
[2019-06-30] MEDS ORDERED: Heparin 10,000 UNITS/ 10 ML VIAL ONE (11:23)
--- NOTE | 2019-06-30 12:29 | PRG ---
DATE OF SERVICE: 06/30/2019 SUBJECTIVE: The patient is seen and examined at the bedside. The patient underwent hemodialysis last night and she was quite agitated, so she received 0.5 mg of Ativan IV push, which sedated her to the point that she is not very responsive to me. She is in deep sleep during my visit. OBJECTIVE: VITAL SIGNS: Blood pressure is 114/52, pulse is 79, respirations 12, O2 saturation is 95%. SKIN: Somewhat erythematous and psoriatic. LUNGS: Breath sounds diminished at both bases. HEART: S1, S2, somewhat irregular. No S3. No S4. ABDOMEN: Soft. Nondistended. The patient grimaces when I push her midportion of the abdomen in the epigastric area. EXTREMITIES: 1 to 2+ nonpitting peripheral edema similar bilateral on both lower extremities. NEUROLOGICAL EXAMINATION: She is quite sedated from Ativan, so it is difficult to assess her at this point. She will be assessed later today when the Ativan is out of the system. LABORATORY DATA: Labs showed white count of 6.2, hemoglobin of 6.9, hematocrit 21.1, platelet count is 57,000, 14 bands. Glucose 102. Comprehensive metabolic panel is pending. Renal ultrasound, no hydronephrosis. IMPRESSION: 1. Acute metabolic encephalopathy, most likely multifactorial, uremic plus hepatic. 2. Acute on chronic kidney failure. Started on hemodialysis yesterday, status post right femoral dialysis catheter placement by General Surgery. 3. Acute on chronic diastolic heart failure. 4. 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 5. Severe anemia. Her hemoglobin is down to 6.9 today. We will transfuse her with 2 units of packed red blood cells again during dialysis. 6. Hypothermia suggestive of possible sepsis with elevated bands up to 14 today. Continue broad-spectrum vancomycin and Levaquin coverage. 7. Hyperkalemia, improved post hemodialysis. Comp this morning is pending. 8. Metabolic acidosis secondary to renal failure. 9. Psoriasis. 10. Pancytopenia secondary to liver cirrhosis. 11. Physical deconditioning. DISCUSSION: The patient's condition is guarded. She is going to be dialyzed today again. She will have 2 units of packed red blood cells during dialysis. We will put her on p.r.n. Ativan 0.25 mg every 8 hours IV push for agitation. We will check her labs, potassium level. We will check procalcitonin level and continue supportive care. Job ID: [id number]
--- NOTE | 2019-06-30 12:31 | PRG ---
DATE OF SERVICE: 06/30/2019 REASON FOR CONSULTATION: Cirrhosis, possible hepatorenal syndrome. SUBJECTIVE: Overnight, the patient did not have any acute events or problems overnight, but continues to be in a state of altered mental status. She does seem to be semi-alert and will respond to voices, but her speech is largely unintelligible. At the time of evaluation, she was currently undergoing dialysis with the newly placed dialysis catheter and doing well so far. Per nursing staff, there has not been any episodes of vomiting, fevers, rigors, hematemesis, melena, or hematochezia. She has not been able to tolerate oral medications thus far due to her altered mental status with plans to place an NG tube later for administration of rifaximin and lactulose. OBJECTIVE: VITAL SIGNS: Temperature 97, pulse 79, blood pressure 114/52, respiratory rate 16, saturating 95% on room air. GENERAL: The patient was lying in bed, in mild distress with occasional moaning. She is able to respond to voice, but unable to open her eyes and was not following any commands. CARDIOVASCULAR: Regular rate and rhythm. RESPIRATORY: Clear to auscultation bilaterally. ABDOMEN: Normoactive bowel sounds. Soft. Moderate abdominal distention with thickening of the skin in the bilateral flanks secondary to anasarca. No observed grimacing to palpation. EXTREMITIES: 1+ bilateral lower extremity edema extending up to mid hahn on both sides. LABORATORY DATA: CBC with a white blood cell count of 6.2, hemoglobin 6.9, hematocrit 21.9, platelets 57. Chemistry with a sodium of 140, potassium 5.6, chloride 107, CO2 of 17, BUN 61, creatinine was 6.05, and glucose 103. IMAGING DATA: No current GI imaging is available for review. ASSESSMENT AND PLAN: The patient is a 79-year-old female with past medical history of likely nonalcoholic steatohepatitis/fatty liver, progressing to cirrhosis, complicated by recurrent hepatic encephalopathy, now presenting with acute renal failure and coagulopathy, also concerning for possible liver failure, raising concern for hepatorenal syndrome. Possible hepatorenal syndrome: The patient is presenting with worsening of her liver function as evidenced by elevated INR and worsening coagulopathy in addition to a significantly elevated BUN and creatinine when compared to prior admissions. At this time, the patient has received approximately 12 to 24 hours of albumin administration, but has also had a dialysis catheter placement and is currently undergoing dialysis in an attempt to improve her renal function. At this time, given no significant improvement in her renal function with the administration of albumin infusion, octreotide, and other conservative management, the likelihood of hepatorenal syndrome, type 1 is high. If the patient does not respond to dialysis with improvement in renal function or improvement in her hepatic function, then her prognosis is extremely poor, given her advanced age and now with acute renal failure on top of her cirrhosis, she is not a transplant candidate, especially with her history of recurrent urinary tract infections. Recommendations: 1. We would continue with octreotide and albumin infusions as you are doing. 2. We would add midodrine 7.5 mg t.i.d. and increasingly titrate per day. 3. Agree with dialysis in an attempt to improve renal function and assist with hypervolemia. 4. 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 Cirrhosis: The patient is presenting with a history of cirrhosis, most likely secondary to fatty liver/nonalcoholic steatohepatitis, per liver biopsy obtained in 2019, it showed evidence of significant fibrosis, but was equivocal for the actual diagnosis of cirrhosis, with further imaging last year, it showed the presence of a splenocaval shunt, which would explain why she was having recurrent episodes of hyperammonemia, but the formation of the shunt most likely in association with increased portal hypertension. At this time, she is presenting with decompensated disease as evidenced by her worsening hepatic encephalopathy and now possible hepatorenal syndrome, calculation of her MELD score based on the INR from yesterday is approximately 35, which carries with it an approximate 65% to 70% 90-day mortality. At this time, given her significant liver disease and now concurrent kidney disease, her overall prognosis is poor. Recommendations: 1. We would continue with lactulose administration in addition to rifaximin 550 mg b.i.d. for hepatic encephalopathy. 2. We would avoid any diuretics for the time being, given that it can worsen hepatic encephalopathy and/or renal function. 3. If the patient does not respond to medical management over the next 24 hours, then consideration for hospice is a strong possibility. We will continue to follow. Please call with any questions. Job ID: [id number]
--- NOTE | 2019-06-30 13:28 | PRG ---
DATE OF SERVICE: 06/30/2019 SERVICE: Nephrology. SUBJECTIVE: A 79-year-old female with decompensated liver cirrhosis, admitted with worsening renal failure, requiring hemodialysis. The patient was initiated on hemodialysis yesterday, June 29. Had some confusion and agitation last night, requiring Ativan. Sleeping comfortably currently. Moves limbs with stimulation, however. OBJECTIVE: VITAL SIGNS: Temperature 97.0, pulse 81, respiratory rate 16, SpO2 of 95% on room air, and blood pressure is 141/65. GENERAL: Chronically ill-looking elderly female, in no obvious distress. Afebrile. HEENT: Normocephalic and atraumatic. Oral mucosa is dry. CARDIOVASCULAR: Regular rhythm and rate with normal heart sounds 1 and 2. RESPIRATORY: Fair air entry bilaterally with some transmitted breath sounds. GI: Abdomen is obese, soft with mild tenderness diffusely. Bowel sound is normoactive. EXTREMITIES: Edema of the legs and elbows noted. SKIN: Scattered macules and papules as well as flakes with purple discoloration noted. No obvious erythema appreciated. COUTURIERE: Sleeping, but arousable with stimulation. DIAGNOSTIC DATA: CBC showed WBC count of 6.9, hemoglobin of 6.9, MCV of 91.9, platelets of 57. Of note, on presentation, the patient has hemoglobin of 6.2 and was transfused 2 units of packed red blood cells with hemoglobin trending up to 8.0 before trending down today to 6.9. CMP today is pending. ASSESSMENT: 1. Acute renal failure with anuria. Due to volume depletion and hepatorenal syndrome. 2. Chronic kidney disease, stage 3/4. 3. Decompensated liver cirrhosis. 4. Psoriasis without acute flare. 5. Acute metabolic encephalopathy due to liver disease as well as uremia from acute renal failure. 6. Anasarca. 7. Hyperkalemia. 8. Metabolic acidosis. PLAN: 1. We will continue octreotide with albumin. We will also start the patient on bicarb infusion as the patient is clinically dry. Not withstanding edema of the extremities and abdominal wall. 2. We will plan on dialyzing the patient today for 3 hours with 2K bath. 3. We will review CMP when available. 4. Care plan was discussed with family, spouse. 5. The patient need to continue on lactulose and it could not take by mouth. NG tube placements are recommended. Further treatment to follow depending on hospital course. Job ID: [id number]
[2019-06-30 14:01] LABS: ALT (SGPT) 37 U/L (8-55); AST (SGOT) 92 U/L (5-34); Alkaline Phosphatase 91 U/L (40-110); Anion Gap 16 mmol/L (10-20); BUN (Urea Nitrogen) 24 mg/dL (9.8-20.1); Bilirubin, Total 4.5 mg/dL (0.2-1.2); Calc. Creatinine Clearance 22 mL/min (70-130); Calcium 7.8 mg/dL (7.8-10.44); Carbon Dioxide 25 mmol/L (23-31); Chloride 103 mmol/L (98-107); Estimated GFR-MDRD 16; Globulin 2.5 g/dL (2.4-3.5); Glucose 89 mg/dL (83-110); Potassium 3.4 mmol/L (3.5-5.1); Protein, Total 6.5 g/dL (6.0-8.3); Sodium 141 mmol/L (136-145)
[2019-06-30] MEDS: Midodrine HCl 5 MG TAB PO SCH ×2 (15:28→21:44)
[2019-06-30 18:35] LABS: Vancomycin, Random 15.4 ug/mL (See Comment)
[2019-06-30] MEDS ORDERED: Vancomycin HCl 750 MG in Sodium Chloride 0.9% 250 ML 250 ML IVPB SCH (19:30)
[2019-06-30] MEDS: Lorazepam 0.5 MG TAB PER TUBE PRN (21:46)
[2019-07-01] MEDS: Fentanyl 100 MCG/2 ML VIAL SLOW IVP PRN (01:16)
[2019-07-01] MEDS: Octreotide Acetate 1,250 MCG in Sodium Chloride 0.9% 250 ML 250 ML IVPB SCH ×2 (01:46→21:32)
[2019-07-01 03:14] LABS: Hemoglobin 9.7 g/dL (12.0-16.0)
[2019-07-01 03:15] LABS: Hemoglobin 10.1 g/dL (12.0-16.0); Mean Corpuscular Hemoglobin 29.3 pg (27.0-31.0); Mean Corpuscular Volume 88.8 fL (78.0-98.0); Mean Platelet Volume 10.7 fL (7.4-10.4); Platelet Count 27 thou/uL (130-400); RBC Distribution Width 16.1 % (11.5-14.5); Red Blood Cell (RBC) Count 3.43 mill/uL (4.20-5.40); White Blood Cell (WBC) Count 5.3 thou/uL (4.8-10.8)
[2019-07-01 03:16] LABS: INR-International Normal Ratio 2.5; Prothrombin Time 26.4 SEC (12.0-14.7)
[2019-07-01 03:28] LABS: Band 10 % (5-11); Lymphocytes 14 % (21-51); MDiff Complete? YES; Monocytes 3 % (0-10); Neutrophil 73 % (42-75); Nucleated RBC 5 % (0); Platelet Morphology Comment Appears Decreased
[2019-07-01 03:39] LABS: ALT (SGPT) 31 U/L (8-55); AST (SGOT) 67 U/L (5-34); Alkaline Phosphatase 82 U/L (40-110); Anion Gap 17 mmol/L (10-20); BUN (Urea Nitrogen) 25 mg/dL (9.8-20.1); Bilirubin, Total 6.2 mg/dL (0.2-1.2); Calc. Creatinine Clearance 18 mL/min (70-130); Calcium 7.5 mg/dL (7.8-10.44); Carbon Dioxide 24 mmol/L (23-31); Chloride 103 mmol/L (98-107); Estimated GFR-MDRD 13; Globulin 2.2 g/dL (2.4-3.5); Glucose 87 mg/dL (83-110); Potassium 3.6 mmol/L (3.5-5.1); Protein, Total 6.2 g/dL (6.0-8.3); Sodium 140 mmol/L (136-145)
[2019-07-01] MEDS: Albumin 25% 25 GM/100 ML BOT IVPB SCH ×2 (05:41→11:32)
--- NOTE | 2019-07-01 08:41 | PRG ---
DATE OF SERVICE: 07/01/2019 SUBJECTIVE: The patient is very difficult to awaken. This is not much different than what she has been. OBJECTIVE: VITAL SIGNS: Temperature 96.8, pulse 52, blood pressure 118/43. Intake 2641, output 1700 that was all through dialysis. GENERAL: She has a diffuse erythematous appearance throughout her neck and torso regions. HEENT: Remarkable for slightly icteric sclerae. NECK: No adenopathy or JVD. LUNGS: Clear anteriorly. CARDIOVASCULAR: S1, S2. Regular. ABDOMEN: Soft. EXTREMITIES: Extensive psoriatic changes bilaterally. LABORATORY DATA: Sodium 140, potassium 3.6, chloride 103, CO2 of 24, BUN 25, creatinine 3.5, glucose 87. White blood cell count 5.3, hematocrit 30.5, platelet count 27. INR 2.5. ASSESSMENT: 1. Acute on chronic renal insufficiency with anuria, requiring hemodialysis. 2. Metabolic acidosis. 3. Decompensated hepatic encephalopathy. 4. Cirrhosis due to fatty liver. 5. Anemia. 6. Psoriasis. PLAN: 1. She is continuing the Xifaxan and lactulose for the hepatic encephalopathy. 2. Continuing hemodialysis for the renal failure. 3. Overall, her prognosis seems quite dismal. I think given that the cultures are negative, we should go ahead and stop the vancomycin. If cultures remain negative, consider stopping the Levaquin. 4. She has been started on midodrine by Dr. Escobedo. 5. Pulmonary will continue to follow, although we do not have much to add at this time. Job ID: [id number]
[2019-07-01] MEDS: Rifaximin 550 MG TAB PO SCH ×2 (08:53→22:16)
[2019-07-01] MEDS: Midodrine HCl 5 MG TAB PO SCH ×3 (08:54→21:57)
[2019-07-01] MEDS: Pantoprazole 40 MG VIAL IVP SCH ×2 (08:56→22:17)
--- NOTE | 2019-07-01 11:20 | PRG ---
DATE OF SERVICE: 07/01/2019 SERVICE: Nephrology. SUBJECTIVE: A 79-year-old female with liver cirrhosis and CKD, being followed up for acute renal failure, thought to be hepatorenal syndrome. The patient was agitated again last night and received benzodiazepine and she is currently somnolent, had undergone hemodialysis treatment yesterday. Tunneled dialysis catheter is planned today. OBJECTIVE: VITAL SIGNS: Temperature 96.3, pulse 83, respiratory rate 10, SpO2 of 98% on room air, and blood pressure is 126/50. GENERAL: Elderly man female, in no obvious distress. The patient is somnolent. Afebrile. HEENT: Normocephalic, atraumatic. Oral mucosa is mildly dry. CARDIOVASCULAR: Regular rhythm and rate with normal heart sounds one and two. Soft systolic murmur noted. RESPIRATORY: Decreased air entry both bases with some transmitted breath sounds. Work of breathing, however, is not increased. GI: Obese, soft. Normal bowel sounds. Right tunneled dialysis catheter noted. EXTREMITIES: Generalized edema of the body and extremities noted. SKIN: Scattered macules, papules, and flakes of surgery desquamation noted. OFFICE SUPPORT SPECIALIST: The patient is somnolent. Moves with simulation however. DIAGNOSTIC DATA: CBC showed WBC count of 5.3, hemoglobin of 10.1, and platelets of 27. Of note, platelets were 57 yesterday. Hemoglobin also was 6.9, hence transfused. Coagulation panel showed PT 26.4, INR 2.5. CMP showed sodium 140, potassium 3.6, chloride 103, CO2 of 24, BUN 25, creatinine 3.51, calcium 7.5, total bilirubin 6.2, AST 67, ALT 31, alkaline phosphatase 82, total protein 6.2, albumin 4.0, and globulin 2.2. ASSESSMENT: 1. Acute renal failure. The patient remained anuric more than 2 days now, despite treatment with albumin and octreotide as well as midodrine. 2. Presumed hepatorenal syndrome. The patient is on octreotide, midodrine, and albumin. 3. Decompensated liver cirrhosis: Thought to be due to nonalcoholic steatosis. However, autoimmune hepatitis is a concern given history of psoriatic arthritis with acute flare. 4. Acute blood loss anemia. 5. Hypokalemia: Corrected. 6. Hyperkalemia: Treated with hemodialysis. 7. Coagulopathy due to decompensated liver cirrhosis. 8. Hyperbilirubinemia: Levels are progressively trending up from 1.0 on admission to 6.2 currently. Obstructive . Biliary obstruction is a concern. 9. Metabolic encephalopathy: Due to hepatic and uremic encephalopathy. 10. Anasarca. PLAN: We will dialyze the patient today for 4 hours with UF as tolerated after a tunneled dialysis catheter placement. The patient will receive tunneled dialysis catheter. We will continue octreotide and midodrine for now. GI is following. Evaluation of hyperbilirubinemia as per GI. Care plan was discussed with spouse at the bedside and he verbalized understanding. Further treatment to follow depending on hospital course. Job ID: [id number]
[2019-07-01 11:52] LABS: Hemoglobin 9.7 g/dL (12.0-16.0); Mean Corpuscular HGB CONC 32.3 g/dL (32.0-36.0); Mean Platelet Volume 10.7 fL (7.4-10.4); Platelet Count 25 thou/uL (130-400); RBC Distribution Width 16.4 % (11.5-14.5); Red Blood Cell (RBC) Count 3.33 mill/uL (4.20-5.40); White Blood Cell (WBC) Count 4.2 thou/uL (4.8-10.8)
--- NOTE | 2019-07-01 13:07 | PQF ---
LASHAWN HOLT ZBIGNIEW A MD [id number] [facility] [id number] CLINICAL DOCUMENTATION IMPROVEMENT CLARIFICATION FORM: ICD-10 Updated PLEASE DO AN ADDENDUM TO THE PROGRESS NOTE WITH ANY DOCUMENTATION UPDATES OR ADDITIONS AND CARRY THROUGH TO DC SUMMARY. THANK YOU. DATE: 07/01/2019 ATTN: DR. Chel TIMMONS Please exercise your independent, professional judgment in responding to the clarification form. Clinical indicators are provided on the bottom of this form for your review. Please check appropriate box(es): [ ] Sepsis due to: (Pna, UTI, gangrenous gall bladder, etc.) [ x] Severe sepsis with acute organ dysfunction of: (Examples: respiratory failure, encephalopathy, acute kidney failure, other) [ ] Septic Shock [ ] Other diagnosis [ ] Unable to determine In addition, please specify: Present on Admission (POA): [ x] Yes [ ] No [ ] Unable to determine For continuity of documentation, please document condition throughout progress notes and discharge summary. Thank You. CLINICAL INDICATORS - SIGNS / SYMPTOMS / LABS / RESULTS AND LOCATION IN MR 06/28 WBC 4.6 06/29 BANDS 22 07/01 WBC 4.2 06/30 BANDS 14 06/28 TEMP 92.4 (RECTAL) > 94.9 06/28 H&P AGUSTÍN A/P: 5). SEPSIS WITH ACUTE ORGAN DYSFUNCTION. THE PT HAS HYPOTHERMIA, ALTERED MENTAL STATUS, RENAL FAILURE, SUSPECTED FROM UNDERLYING INFECTION AND THAT IS WHY. WE WILL DO KIM CULTURE, URINE CULTURE, BLOOD CULTURE. 06/28 PN( SHANELLE) SHE IS STILL VERY ENCEPHALOPATHIC. SHE IS NOT ABLE TO COMMUNICATE WITH ME AT ALL. SHE DOES NOT FOLLOW MY COMMANDS. IMPRESSION: 6.) HYPOTHERMIA SUGGESTIVE OF POSSIBLE SEPSIS, BANDS ELEVATED TO 22. 06/30 PN( SHANELLE) IMPRESSION: 6). HYPOTHERMIA SUGGESTIVE OF POSSIBLE SEPSIS WITH ELEVATED BANDS UP TO 14 TODAY. 07/01 TO DATE NO URINE/BLOOD CULTURES SEEN IN MEDICAL RECORD RISK: DX WILLY ON CKD, ACUTE METABOLIC ENCEPHALOPATHY, HEPATORENAL SYNDROME, HYPERBILIRUBINEMIA, HYPOTHERMIA (AGUSTÍN H&P/06/28), (SHANELLE DEVI/ 06/28) TREATMENTS: VANCOMYCIN IV ( 06/28- PRESENT) LEVAQUIN IV (06/30 - PRESENT) THANK YOU! ANIKA (This form is maintained as a part of the permanent medical record) 2014 [employer]. All Rights Reserved [email or web address] [phone] MTDD
[2019-07-01] MEDS ORDERED: Heparin 10,000 UNITS/1 ML VIAL ONE (14:33)
[2019-07-01] MEDS ORDERED: Sodium Chloride 0.9% 20 ML ONE (14:33)
[2019-07-01] MEDS ORDERED: Lidocaine 1% w/Epinephrine 1:100K 20 ML VIAL ONE (14:33)
[2019-07-01] MEDS ORDERED: Bupivacaine PF 0.5% 30 ML VIAL ONE (14:33)
[2019-07-01] MEDS ORDERED: Ketamine 50 MG/ML (10ML VIAL) ONE (14:43)
[2019-07-01] MEDS ORDERED: Midazolam HCl 2 mg/2 ml Vial ONE (14:43)
[2019-07-01] MEDS ORDERED: Fentanyl 100 MCG/2 ML VIAL ONE (14:43)
[2019-07-01] MEDS ORDERED: Heparin 10,000 UNITS/ 10 ML VIAL ONE (15:09)
--- NOTE | 2019-07-01 15:30 | PRG ---
DATE OF SERVICE: 07/01/2019 SUBJECTIVE: The patient is seen and examined at bedside. One of the family members is present in the room during my visit, and all questions were answered to the satisfaction of the person and member of the family. OBJECTIVE: VITAL SIGNS: Blood pressure is 131/57, pulse is 81, respiratory rate is 14, O2 saturation is 98%. GENERAL: She is in deep coma. She is arousable with painful stimuli. Obviously, she does not follow any of my commands. LUNGS: Breath sounds diminished at both bases. HEART: S1 and S2 normal. No S3. No S4. Somewhat irregular. ABDOMEN: Soft. Slightly distended. Bowel sounds are present. Erythema of the skin is present in general fashion all over her body. LABORATORY DATA: White count of 4.2, hemoglobin 9.7, hematocrit 29.9, platelet count is 225,000. Electrolytes within normal limits. BUN 25, creatinine 3.51, calcium 7.5, total bilirubin 6.2, AST 67, ALT 31. Microbiology, fecal occult blood test negative. IMPRESSION: 1. Acute metabolic encephalopathy, most likely multifactorial. 2. Iythy-sz-hizeifd kidney failure, presently on hemodialysis, most likely hepatorenal syndrome. 3. Usejb-vu-owbytum diastolic heart failure. 4. 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 5. Severe anemia. 6. Elevated INR, PT, and aPTT secondary to liver cirrhosis. There is significant hepatic coagulopathy. 7. Hypothermia suggestive of possible sepsis. Vancomycin was stopped. The patient is continued to Levaquin. 8. Hyperkalemia, improved post-hemodialysis. 9. Metabolic acidosis secondary to renal failure. 10. Psoriasis. 11. Pancytopenia secondary to liver cirrhosis. 12. Physical deconditioning. DISCUSSION: We will continue her current regimen with Levaquin. We will decrease the dose of lactulose to 3 times a day since she had 5 bowel movements last night. We will continue dialysis per Nephrology. The family was notified about her critical condition. 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 We will continue supportive care, but we will talk to the family and introduce concept of hospice. Job ID: [id number]
--- NOTE | 2019-07-01 16:47 | OP ---
DATE OF PROCEDURE: 07/01/2019 PREOPERATIVE DIAGNOSES: 1. End-stage renal disease. 2. Cirrhosis. 3. Coagulopathic. 4. Encephalopathic. 5. [place]. POSTOPERATIVE DIAGNOSES: 1. End-stage renal disease. 2. Cirrhosis. 3. Coagulopathic. 4. Encephalopathic. 5. [place]. PROCEDURE PERFORMED: Right internal jugular cuffed-tunneled hemodialysis catheter. Left subclavian vein central line. (I could not place a left internal jugular line). Ultrasound and fluoroscopy used. ANESTHESIA: Local with 0.5% Marcaine 30 mL, mixed 1% Xylocaine with epinephrine 20 mL. DESCRIPTION OF PROCEDURE: The patient was taken to the operating room, where in the supine position, neck and chest were prepared with ChloraPrep and draped in routine fashion. Using ultrasound guidance, I was able to see the left internal jugular vein, but the J-wire would not thread. After multiple attempts, this attempt was abandoned. The right internal jugular vein was cannulated with a trocar catheter. J-wire threaded under ultrasound guidance and trocar catheter removed. Skin site was enlarged sharply. Seldinger technique used and tunneling device was used to place a right IJ cuffed tunneled dialysis catheter, exiting the right chest. Catheter secured with 2 interrupted sutures of 3-0 nylon and small and medium size dilators were placed over the J-wire into the internal jugular vein. Dilator and Peel-Away sheath placed over the J-wire in the superior vena cava. Dilator and J-wire were removed. Catheter placed with the Peel-Away sheath. Peel-Away sheath removed. Platysma was approximated with 4-0 Monocryl, skin with subdermal 4-0 Monocryl. Each port aspirated blood, flushed with saline solution and heparinized saline solution with 1000 units of heparin per mL, indicating volume of the port. Good hemostasis noted. Sterile dressings applied. Left subclavian vein central line was placed with Seldinger technique, securing the catheter with 3-0 nylon suture, removed the J-wire, and aspirated each port with blood and flushed with saline solution. Fluoroscopy revealed good line placement. Job ID: [id number]
--- NOTE | 2019-07-01 17:07 | RAD ---
XR Chest 1 View Portable History: Central line Comparison: Radiograph June 28, 2019 Findings: Left subclavian central venous catheter tip projects over the mid SVC. Dialysis catheter ti p projects over the right atrium. Moderate bilateral effusions. Mild volume overload with pulmonary edema. No pneumothorax. Enteric tube tip below diaphragm although out of field of view. Impression: 1. Worsening pulmonary edema and enlarging bilateral layering pleural effusions. 2. Lines and tubes as above.
[2019-07-01] MEDS ORDERED: Albumin 25% 25 GM/100 ML BOT IVPB SCH (20:45)
--- NOTE | 2019-07-01 22:37 | PRG ---
DATE OF SERVICE: 07/01/2019 REASON FOR CONSULTATION: Cirrhosis, possible hepatorenal syndrome. SUBJECTIVE: Yesterday, the patient underwent dialysis through a femoral catheter and did well with no periprocedural complications and overnight, the patient did not experience any acute events or problems. However, continues to have altered mental status today and is largely unresponsive to verbal stimuli, but does react to noxious stimuli. Per nursing staff, there has not been any episodes of vomiting, fevers, rigors, hematemesis, melena, or hematochezia. An NG tube was placed yesterday and the patient has been able to tolerate influx of medications through the NG tube with the plan to start tube feeds later today. OBJECTIVE: VITAL SIGNS: Temperature 96.4, pulse 53, blood pressure 137/54, respiratory rate 10, saturating 92% on room air. GENERAL: The patient was lying in bed, in no acute distress with occasional moaning. She was able to respond to some verbal stimuli, but could not open her eyes nor she providing any purposeful movements or responses CARDIOVASCULAR: Regular rate and rhythm. RESPIRATORY: Clear to auscultation bilaterally. ABDOMEN: Normoactive bowel sounds. Soft. Moderate abdominal distention with thickening of the skin in the bilateral flanks secondary to anasarca. No observed grimacing to palpation. EXTREMITIES: 1+ bilateral lower extremity edema extending up to mid hahn on both sides. LABORATORY DATA: CBC with a white blood cell count of 5.3, hemoglobin 10.1, hematocrit 30.5, platelets 27. INR 2.5. Chemistry with a sodium of 140, potassium 3.6, chloride 103, CO2 of 24, BUN 25, creatinine 3.51, glucose 87. AST 67, ALT 31, alkaline phosphatase 82, total bilirubin 6.2, and calculated MELD score of 37. IMAGING DATA: No current GI imaging is available for review. 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 Possible hepatorenal syndrome: The patient is presenting with worsening of her liver function as well as significantly worsening of her renal function concerning for the presence of hepatorenal syndrome. Over the last 24 to 48 hours, the patient has had administration of albumin, octreotide, and more recently midodrine with no significant improvement in either liver or renal function. However, she did respond to dialysis that was performed yesterday with improvement of her creatinine noted on labs today. At this time, the possibility of hepatorenal syndrome type 1 is high, which does carry an extremely poor prognosis with the only significant treatment being liver transplantation. Given her advanced age and now acute renal failure on top of her cirrhosis, she is not currently a transplant candidate, especially with her history of recurrent urinary tract infections. Recommendations: 1. We would continue with octreotide and albumin infusions. 2. We would increase midodrine to 10 mg t.i.d. 3. Agree with dialysis in an attempt to improve renal function, although may ultimately prove fruitless. Cirrhosis: The patient is presenting with a history of cirrhosis, most likely secondary to fatty liver/nonalcoholic steatohepatitis. Per liver biopsy obtained in 2019, it did show evidence of significant fibrosis, but was equivocal for the actual diagnosis of cirrhosis; however, imaging performed last year showed the presence of splenocaval shunt most likely due to portal hypertension, and would explain the episodes of hyperammonemia that she had been intermittently experiencing. At this time, she is now presenting with decompensated liver disease as evidenced by her worsening hepatic encephalopathy and lower extremity edema secondary to hypoalbuminemia. However, now she is experiencing worsening of her thrombocytopenia, hyperbilirubinemia in addition to coagulopathy as evidenced by an elevation of her INR concerning for impending liver failure. Calculation of her MELD score based on her current labs is approximately 37, which carries with an approximate 65% to 70% 90-day mortality. Given these findings, her overall prognosis is poor. Recommendations: 1. We would continue with lactulose administration in addition to rifaximin 550 mg b.i.d. for hepatic encephalopathy with a goal to achieve approximately 3 to 4 bowel movements per day. 2. We would avoid any diuretics as it can worsen hepatic encephalopathy and/or renal function. 3. We would strongly consider hospice given the patient's poor prognosis and lack of candidacy for liver transplantation. We will continue to follow. Dr. Martino will be on-call over the weekend. Please direct any questions to him. Job ID: [id number]
[2019-07-02] MEDS: Fentanyl 100 MCG/2 ML VIAL SLOW IVP PRN ×3 (00:11→11:02)
[2019-07-02 05:13] LABS: #Eosinphils 0.2 thou/uL (0.0-0.7); #Lymphocytes 0.9 thou/uL (1.20-3.40); #Monocytes 0.4 thou/uL (0.11-0.59); #Neutrophils 4.1 thou/uL (1.40-6.50); %Eosinophils 3.8 % (0.0-10.0); %Monocytes 6.9 % (0.0-10.0); %Neutrophils 73.4 % (42.0-75.0); Hemoglobin 9.9 g/dL (12.0-16.0); Mean Corpuscular HGB CONC 32.6 g/dL (32.0-36.0); Mean Corpuscular Hemoglobin 29.5 pg (27.0-31.0); Mean Corpuscular Volume 90.6 fL (78.0-98.0); Mean Platelet Volume 9.4 fL (7.4-10.4); Platelet Count 31 thou/uL (130-400); RBC Distribution Width 16.7 % (11.5-14.5); Red Blood Cell (RBC) Count 3.37 mill/uL (4.20-5.40); White Blood Cell (WBC) Count 5.5 thou/uL (4.8-10.8)
[2019-07-02 05:16] LABS: Prothrombin Time 22.2 SEC (12.0-14.7)
[2019-07-02 05:35] LABS: ALT (SGPT) 20 U/L (8-55); AST (SGOT) 34 U/L (5-34); Albumin 4.5 g/dL (3.4-4.8); Alkaline Phosphatase 78 U/L (40-110); Anion Gap 14 mmol/L (10-20); BUN (Urea Nitrogen) 12 mg/dL (9.8-20.1); Bilirubin, Total 7.7 mg/dL (0.2-1.2); Calc. Creatinine Clearance 26 mL/min (70-130); Calcium 7.9 mg/dL (7.8-10.44); Carbon Dioxide 28 mmol/L (23-31); Chloride 102 mmol/L (98-107); Estimated GFR-MDRD 18; Globulin 2.1 g/dL (2.4-3.5); Glucose 83 mg/dL (83-110); Potassium 3.9 mmol/L (3.5-5.1); Protein, Total 6.6 g/dL (6.0-8.3); Sodium 140 mmol/L (136-145)
[2019-07-02] MEDS: Rifaximin 550 MG TAB PO SCH ×2 (08:34→23:55)
[2019-07-02] MEDS: Midodrine HCl 5 MG TAB PO SCH ×3 (08:35→22:12)
[2019-07-02] MEDS: Pantoprazole 40 MG VIAL IVP SCH ×2 (08:36→23:07)
[2019-07-02] MEDS ORDERED: Phytonadione 10 MG/ML AMP PO SCH (10:15)
[2019-07-02] MEDS: Octreotide Acetate 1,250 MCG in Sodium Chloride 0.9% 250 ML 250 ML IVPB SCH ×2 (11:00→23:45)
--- NOTE | 2019-07-02 11:01 | ULT ---
EXAM: US Gallbladder RUQ CLINICAL HISTORY: Hyperbilirubinemia . Previous cholecystectomy COMPARISON: None. FINDINGS: Pancreas: Obscured by bowel gas Liver:Increased hepatic parenchymal echotexture which may be due to hepatic steatosis or hepatocellul ar disease. There does appear to be nodularity of the hepatic parenchyma. Right hepatic lobe measures 13.9 cm. Limited evaluation for hepatic masses and intrahepatic biliary dilatation. Overall increased parenchymal echotexture. There is perihepatic fluid. Gallbladder: Surgically absent Lawrence's sign:Not applicable Portal Vein: Patent. Bile ducts: Poorly visualized. Questionable common bile duct measures approximately 1 cm. Right kidney: Right renal cortical thinning. No hydronephrosis. Right kidney measures 4.5 x 3.9 x 9.7 cm in length. IMPRESSION: 1. Surgically absent gallbladder 2. Suboptimal evaluation the common bile duct. Possible dilatation of the common bile duct may be due to reservoir effect from previous cholecystectomy. 3. Increased echogenicity of the liver with lobulation of the hepatic margin. Correlate for cirrhotic change. There is a small amount of perihepatic free fluid. Evaluation with abdomen MRI and MRCP may be beneficial.
--- NOTE | 2019-07-02 11:19 | PRG ---
DATE OF SERVICE: 07/02/2019 SUBJECTIVE: Still remains encephalopathic. No verbal communication. Family at the bedside. Feeding tube in place. OBJECTIVE: VITAL SIGNS: Blood pressure 127/77, pulse 77, sats 91 on room air, respiratory rate 18. CHEST: Decreased breath sounds. No wheezing. CARDIAC: Normal S1 and S2. No masses. LABORATORY DATA: Creatinine 2.5. INR is 2. ASSESSMENT AND PLAN: Cirrhosis, hepatorenal syndrome, encephalopathy, bilateral pleural effusion. Continue supportive care, PT. She is still a full code, may consider palliative care hospice evaluation. In the meantime, she is on rifaximin, lactulose. Pulmonary critical care will follow while in the MICU. Job ID: [id number]
--- NOTE | 2019-07-02 12:57 | PDOC.HOSPP ---
- Subjective Encounter Date: 07/02/19 Encounter Time: 10:35 Subjective: Alert, confused.. - Objective Vital Signs & Weight: Vital Signs (12 hours) Temp Resp 07/02/19 12:09 12 07/02/19 11:27 97.5 F L 07/02/19 10:00 14 07/02/19 08:00 14 07/02/19 07:15 97.5 F L 07/02/19 03:48 97.2 F L Weight Admit Weight 189 lb 3.2 oz Weight 195 lb 3.2 oz Most Recent Monitor Data Heart Rate from ECG 76 NIBP 144/60 NIBP BP-Mean 88 Respiration from ECG 10 SpO2 100 I&O: 07/01/19 07/02/19 07/03/19 06:59 06:59 06:59 Intake Total 2641 1900 Output Total 1700 4100 Balance 941 -2200 Result Diagrams: 07/02/19 05:00 07/02/19 05:00 Additional Labs: Accuchecks 07/02/19 07/02/19 07/02/19 11:03 06:01 01:40 POC Glucose 92 83 94 07/02/19 07/01/19 07/01/19 00:45 20:31 17:17 POC Glucose 63 L 79 80 Hospitalist ROS - Medication Medications: Active Medications Generic Name Dose Route Start Last Admin Trade Name Freq PRN Reason Stop Dose Admin Fentanyl 25 mcg 07/02/19 09:39 07/02/19 11:02 Sublimaze SLOW IVP 25 mcg Q6H PRN Administration Pain Heparin Sodium (Porcine) 500 units 06/30/19 03:09 07/01/19 02:52 Heparin Lock Flush 100 Units/Ml IVF 500 unit PRN PRN Administration Heparin Flush Octreotide Acetate 1,250 mcg/ 251.25 mls @ 20.1 mls/hr 06/28/19 12:30 11:00 Sodium Chloride IVPB 251.25 mls INF CHAPARRO Administration 100 MCG/HR Levofloxacin 500 mg/ Device 100 mls @ 100 mls/hr 06/30/19 09:00 07/02/19 08: 36 IVPB 100 mls Q2DAYS@0900 CH[facility]ARRO Administration Lactulose 20 gm 07/01/19 15:00 07/02/19 08:35 Lactulose PO 20 gm TID CHAPARRO Administration Lorazepam 0.5 mg 06/30/19 21:29 06/30/19 21:46 Ativan PER TUBE 0.5 mg HS PRN Administration Agitation Midodrine 7.5 mg 06/30/19 15:00 07/02/19 08:35 Proamatine PO 7.5 mg TID CHAPARRO Administration Pantoprazole Sodium 40 mg 06/30/19 21:00 07/02/19 08:36 Protonix IVP 40 mg Q12HR CHAPARRO Administration Rifaximin 550 mg 06/29/19 21:00 07/02/19 08:34 Xifaxan PO 550 mg BID CHAPARRO Administration - Exam Neck: no JVD Heart: RRR Respiratory: rhonchi Gastrointestinal: soft Extremities: 1+ LE edema (Diffuse rash..) Neurological: no weakness Hosp A/P (1) Cirrhosis of liver Code(s): K74.60 - UNSPECIFIED CIRRHOSIS OF LIVER Status: Acute (2) Psoriasis (a type of skin inflammation) Code(s): L40.9 - PSORIASIS, UNSPECIFIED Status: Acute (3) Pancytopenia Code(s): D61.818 - OTHER PANCYTOPENIA Status: Acute (4) Acute renal failure superimposed on stage 3 chronic kidney disease Code(s): N17.9 - ACUTE KIDNEY FAILURE, UNSPECIFIED; N18.3 - CHRONIC KIDNEY DISEASE, STAGE 3 (MODERATE) Status: Acute (5) Hepatic encephalopathy Code(s): K72.90 - HEPATIC FAILURE, UNSPECIFIED WITHOUT COMA Status: Acute (6) Thrombocytopenia Code(s): D69.6 - THROMBOCYTOPENIA, UNSPECIFIED Status: Acute (7) Thrombocytopenia Code(s): D69.6 - THROMBOCYTOPENIA, UNSPECIFIED Status: Acute - Plan Cirrhosis withencephlopathy, possible hepatorenal syndrome, thrombocytopenia... Continue supportive therapy... To receive PLT prior to dialysis catheter removal..
--- NOTE | 2019-07-02 14:37 | PRG ---
DATE OF SERVICE: 07/02/2019 SERVICE: Nephrology. SUBJECTIVE: A 79-year-old female seen in followup for acute on chronic renal failure. The patient with liver cirrhosis and CKD stage 4, was admitted due to mental status change and was found to have acute elevation in creatinine. She was started on hemodialysis with last treatment being yesterday. The patient is still volume overloaded and is scheduled to get blood products today. She is still altered. She has not made any urine since admission. OBJECTIVE: VITAL SIGNS: Temperature 97.5, pulse 77, respiratory rate 14, SpO2 of 93% on room air, and blood pressure is 127/77. GENERAL: Elderly female, in no obvious distress. The patient is altered and lethargic. HEENT: Normocephalic, atraumatic. CARDIOVASCULAR: Regular rhythm and rate with normal heart sounds 1 and 2. RESPIRATORY: Decreased air entry in both bases. Some transmitted breath sounds noted, but no respiratory distress or use of accessory muscles. GASTROINTESTINAL: Obese, soft. Bowel sound is hypoactive. EXTREMITIES: [id number] edema of the extremities as well as edema of the trunk noted. SKIN: Ecchymosis of the anterior chest wall as well as diffuse erythrasma and noted. Scattered macules and papules as well as flakes with desquamation and scales. CENTRAL NERVOUS SYSTEM: The patient is lethargic. Wakes up with stimulation. DIAGNOSTIC DATA: CBC showed WBC count of 5.5, hemoglobin of 9.9, and platelet of 31. Coagulation panel showed PT 22.2, INR 2.0. CMP showed sodium 140, potassium 3.9, chloride 102, CO2 of 28, BUN 12, creatinine 2.51, glucose 83, calcium 7.9, total bilirubin 7.7, AST 34, ALT 20, alkaline phosphatase 78, total protein 6.6, albumin 4.5, and globulin 2.1. ASSESSMENT: 1. Acute renal failure, requiring hemodialysis. [place] to be due to hepatorenal syndrome. 2. Chronic kidney disease, stage 4. 3. Decompensated liver cirrhosis. 4. Hyperbilirubinemia. 5. Acute hepatic and uremic encephalopathy. PLAN: We will start the patient on vitamin K given coagulopathy. Platelet transfusion is planned to facilitate removal of temporary dialysis catheter on right groin. We will plan on doing hemodialysis with UF for volume management as the patient remained anuric. We will also plan on discontinuing albumin as the serum albumin is 4.5. We will discuss further with Gastroenterology about the utility of continuing midodrine and octreotide. We will also get liver ultrasound given hyperbilirubinemia to rule out obstructive pathology. Further treatment as per GI and primary attending. Job ID: [id number]
[2019-07-02] MEDS ORDERED: Heparin 10,000 UNITS/ 10 ML VIAL ONE (15:05)
[2019-07-02 17:24] LABS: Hemoglobin 9.8 g/dL (12.0-16.0); Platelet Count 90 thou/uL (130-400)
--- NOTE | 2019-07-02 18:29 | PRG ---
DATE OF SERVICE: 07/02/2019 SUBJECTIVE: Ms. Sung feels better today. The nurses note she was dialyzed last night and they are planing on dialyzing her again today. OBJECTIVE: VITAL SIGNS: Temperature 97.5, respirations 15, and blood pressure 165/83. GENERAL: The patient is a little more verbal today apparently than yesterday, talking with the nurses. She talks to me a little bit, but cannot tell me her name or where she is. Family is at the bedside. LUNGS: Decreased breath sounds. No wheezing. No cough. HEART: Regular rate and rhythm. ABDOMEN: Protuberant, but nontender LABORATORY DATA: Hemoglobin 9.8 and white count 5.5. Hemoglobin 9.9 this morning, platelet count 31,000. INR 2. BUN and creatinine are 12 and 2.51, bilirubin 7.7, and AST and ALT are 34 and 30. ASSESSMENT: 1. Hepatorenal syndrome. 2. Cryptogenic cirrhosis, likely nonalcoholic steatohepatitis. 3. 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 PLAN: We would continue octreotide and albumin, probably does not need the midodrine with a blood pressure as it is now. Dialysis per Nephrology, it is controversial in hepatorenal syndrome. Consideration should be given to Palliative Care. We will follow along with you. Job ID: [id number]
[2019-07-03] MEDS: Fentanyl 100 MCG/2 ML VIAL SLOW IVP PRN (00:07)
[2019-07-03 06:30] LABS: ALT (SGPT) 17 U/L (8-55); AST (SGOT) 25 U/L (5-34); Albumin 3.9 g/dL (3.4-4.8); Alkaline Phosphatase 80 U/L (40-110); Anion Gap 11 mmol/L (10-20); BUN (Urea Nitrogen) 8 mg/dL (9.8-20.1); Calc. Creatinine Clearance 30 mL/min (70-130); Calcium 7.8 mg/dL (7.8-10.44); Carbon Dioxide 31 mmol/L (23-31); Estimated GFR-MDRD 22; Globulin 2.5 g/dL (2.4-3.5); Glucose 105 mg/dL (83-110); Protein, Total 6.4 g/dL (6.0-8.3)
[2019-07-03 06:33] LABS: Chloride 102 mmol/L (98-107); Potassium 3.8 mmol/L (3.5-5.1); Sodium 140 mmol/L (136-145)
[2019-07-03 07:58] LABS: Hemoglobin 9.9 g/dL (12.0-16.0); Mean Corpuscular HGB CONC 32.8 g/dL (32.0-36.0); Mean Corpuscular Hemoglobin 30.4 pg (27.0-31.0); Mean Corpuscular Volume 92.9 fL (78.0-98.0); Mean Platelet Volume 9.2 fL (7.4-10.4); Platelet Count 64 thou/uL (130-400); RBC Distribution Width 16.9 % (11.5-14.5); Red Blood Cell (RBC) Count 3.25 mill/uL (4.20-5.40); White Blood Cell (WBC) Count 5.6 thou/uL (4.8-10.8)
[2019-07-03 08:26] LABS: Band 4 % (5-11); Eosinophils 4 % (0-10); Hypochromia SLIGHT = 6-15 cells (100X) (0-5/hpf); Lymphocytes 7 % (21-51); MDiff Complete? YES; Monocytes 11 % (0-10); Neutrophil 72 % (42-75); Nucleated RBC 3 % (0); Ovalocytes SLIGHT = 2-5 cells (100X) (0-1/hpf); Platelet Morphology Comment Appears Decreased; Polychromasia SLIGHT = 2-3 cells (100X) (0-2/hpf)
[2019-07-03] MEDS: Midodrine HCl 5 MG TAB PO SCH (10:16)
[2019-07-03] MEDS: Rifaximin 550 MG TAB PO SCH ×2 (10:16→20:29)
[2019-07-03] MEDS: Pantoprazole 40 MG VIAL IVP SCH ×2 (10:16→20:29)
[2019-07-03] MEDS: Phytonadione 10 MG/ML AMP PO SCH (10:17)
[2019-07-03] MEDS: Acetaminophen 325 MG TAB PO PRN (10:17)
--- NOTE | 2019-07-03 11:52 | PDOC.HOSPP ---
- Subjective Encounter Date: 07/03/19 Encounter Time: 11:00 Subjective: Comfortable, asleep.. Nurse reports she is less confused today. - Objective Vital Signs & Weight: Vital Signs (12 hours) Temp Pulse Ox 07/03/19 10:28 97.1 F L 07/03/19 08:00 100 07/03/19 07:16 97.2 F L 07/03/19 04:00 97.1 F L 07/03/19 00:00 98.6 F Weight Admit Weight 189 lb 3.2 oz Weight 191 lb 8 oz Most Recent Monitor Data Heart Rate from ECG 61 NIBP 151/66 NIBP BP-Mean 94 Respiration from ECG 7 SpO2 99 I&O: 07/02/19 07/03/19 07/04/19 06:59 06:59 06:59 Intake Total 1900 1533 Output Total 4100 2700 Balance -2200 -1987 Result Diagrams: 07/03/19 05:55 07/03/19 05:55 Additional Labs: Accuchecks 07/03/19 07/03/19 07/03/19 10:17 05:45 00:09 POC Glucose 134 H 106 85 07/02/19 07/02/19 20:51 16:41 POC Glucose 94 125 H Hospitalist ROS - Medication Medications: Active Medications Generic Name Dose Route Start Last Admin Trade Name Freq PRN Reason Stop Dose Admin Acetaminophen 325 mg 06/28/19 12:56 07/03/19 10:17 Tylenol PO 325 mg Q4H PRN Administration Headache/Fever/Mild Pain (1-3) Fentanyl 25 mcg 07/02/19 09:39 07/03/19 00:07 Sublimaze SLOW IVP 25 mcg Q6H PRN Administration Pain Heparin Sodium (Porcine) 500 units 06/30/19 03:09 07/01/19 02:52 Heparin Lock Flush 100 Units/Ml IVF 500 unit PRN PRN Administration Heparin Flush Octreotide Acetate 1,250 mcg/ 251.25 mls @ 20.1 mls/hr 06/28/19 12:30 23:45 Sodium Chloride IVPB 251.25 mls INF CHAPARRO Administration 100 MCG/HR Levofloxacin 500 mg/ Device 100 mls @ 100 mls/hr 06/30/19 09:00 07/03/19 10: 17 IVPB 100 mls Q2DAYS@0900 [facility]ARRO Administration Lactulose 20 gm 07/01/19 15:00 07/03/19 10:17 Lactulose PO 20 gm TID [facility]ARRO Administration Lorazepam 0.5 mg 06/30/19 21:29 06/30/19 21:46 Ativan PER TUBE 0.5 mg HS PRN Administration Agitation Midodrine 7.5 mg 06/30/19 15:00 07/03/19 10:16 Proamatine PO 7.5 mg TID CHAPARRO Administration Pantoprazole Sodium 40 mg 06/30/19 21:00 07/03/19 10:16 Protonix IVP 40 mg Q12HR [facility]O Administration Phytonadione 10 mg 07/03/19 09:00 07/03/19 10:17 Aquamephyton PO 07/07/19 09:01 10 mg DAILY CH[facility]ARRO Administration Rifaximin 550 mg 06/29/19 21:00 07/03/19 10:16 Xifaxan PO 550 mg BID CHAPARRO Administration - Exam Neck: no JVD Heart: RRR Respiratory: no ronchi Gastrointestinal: soft Extremities: 1+ LE edema Skin: no lesions. negative: normal turgor (+diffiuse rash..) Hosp A/P (1) Cirrhosis of liver Code(s): K74.60 - UNSPECIFIED CIRRHOSIS OF LIVER Status: Acute (2) Psoriasis (a type of skin inflammation) Code(s): L40.9 - PSORIASIS, UNSPECIFIED Status: Acute (3) Pancytopenia Code(s): D61.818 - OTHER PANCYTOPENIA Status: Acute Plan: s/p PLT transfusion... (4) Acute renal failure superimposed on stage 3 chronic kidney disease Code(s): N17.9 - ACUTE KIDNEY FAILURE, UNSPECIFIED; N18.3 - CHRONIC KIDNEY DISEASE, STAGE 3 (MODERATE) Status: Acute (5) Hepatic encephalopathy Code(s): K72.90 - HEPATIC FAILURE, UNSPECIFIED WITHOUT COMA Status: Acute (6) Thrombocytopenia Code(s): D69.6 - THROMBOCYTOPENIA, UNSPECIFIED Status: Acute (7) Thrombocytopenia Code(s): D69.6 - THROMBOCYTOPENIA, UNSPECIFIED Status: Acute - Plan Cirrhosis with encephlopathy,..encephalopathy is improving... Kidney fuction unchanged from yesterday. Continue supportive therapy... s/p PLT transfusion yesterday.
--- NOTE | 2019-07-03 11:57 | PRG ---
DATE OF SERVICE: 07/03/2019 SUBJECTIVE: A 79-year-old female, who is barely arousable, very weak. OBJECTIVE: VITAL SIGNS: Shallow respirations, sats 100% on 2 L, temperature 97, blood pressure 151/64, pulse 94, respiratory rate 18. GENERAL: No verbal communication. Multiple family members at the bedside. CHEST: Decreased breath sounds. No wheezing. CARDIAC: Normal S1 and S2. No gallops. ABDOMEN: No masses. LABORATORY DATA: Creatinine is 2.6. White count 5000, hemoglobin 9, hematocrit 30. Other lytes are normal. IMPRESSION: 1. End-stage renal disease. 2. Cirrhosis. 3. Coagulopathy. 4. Encephalopathy. 5. Respiratory failure. 6. Hyperventilation. PLAN: Condition is borderline precarious. She is a full code. She needs aggressive PT. Minimize sedation. Job ID: [id number]
--- NOTE | 2019-07-03 13:55 | PRG ---
DATE OF SERVICE: 07/03/2019 SERVICE: Nephrology. SUBJECTIVE: A 79-year-old female with known history of CKD, liver cirrhosis, admitted due to acute encephalopathy. Nephrology is following patient for acute on chronic renal failure, requiring hemodialysis, which is thought to be due to hepatorenal syndrome. The patient is more awake today and saying few words and seems very appropriate. Denied nausea or vomiting. The patient has been getting daily dialysis in the last 4 days. OBJECTIVE: VITAL SIGNS: Temperature 97.1, pulse 58, respiratory rate 15, SpO2 100 on 2 L nasal cannula, blood pressure 163/58. GENERAL: Elderly female, in no obvious distress. Afebrile, but icteric. HEENT: Normocephalic, atraumatic. Oral mucosa is dry. Nasogastric tube is in place. CARDIOVASCULAR: Regular rhythm, but bradycardic. RESPIRATORY: Decreased air entry both bases with some transmitted breath sounds, but no rhonchi or use of accessory muscles. GI: Obese, soft with mild diffuse tenderness. Bowel sound is hypoactive. EXTREMITIES: Mild edema of the extremities noted. Edema of the trunk also is noted. SKIN: Erythrasma as well as ecchymosis of the neck and upper trunk noted. Scattered macules, papules, and plaques with desquamation noted. MOBILE DEVELOPMENT MANAGER: Conscious and awake. Oriented to person at least. The patient is conversational and seem appropriate. DIAGNOSTIC DATA: CBC showed WBC count of 5.6, hemoglobin of 9.9, platelet of 64. CMP showed sodium 140, potassium 3.8, chloride 102, CO2 of 31, BUN 8, creatinine 2.16, glucose 105, calcium 7.8, total bilirubin 7.0, AST 25, ALT 17, alkaline phosphatase 80, total protein 6.4, albumin 3.9, globulin 2.5. ASSESSMENT: 1. Acute renal failure, requiring hemodialysis. 2. Chronic kidney disease stage 4. 3. Decompensated liver cirrhosis. 4. Anasarca. 5. Acute hepatic and uremic encephalopathy. Improved with hemodialysis and lactulose. 6. Hepatorenal syndrome, on octreotide. 7. Physical deconditioning. 8. Psoriasis with acute flare. 9. Acute on chronic anemia. PLAN: 1. We will restart albumin as recommended by GI. We will however discontinue midodrine as blood pressures are good. We will also continue octreotide. 2. We will monitor hemoglobin and transfuse as needed. 3. We will start vitamin K given coagulopathy. 4. Other treatment as per Gastroenterology and primary attending. We will monitor renal function. There is no indication for hemodialysis today. The patient remained anuric. We will also monitor urine output. Further treatment to follow depending on hospital course. Job ID: [id number]
--- NOTE | 2019-07-03 15:10 | PRG ---
DATE OF SERVICE: 07/03/2019 SUBJECTIVE: Ms. Sung is sleeping, but being aroused. She is . She does know what day it is. She does recognize her . The nurses note she has had no bleeding. She had dialysis yesterday, but is not going to have it today. MEDICINES: She continues on albumin, levofloxacin, octreotide, rifaximin, vitamin K, lactulose. Midodrine has been discontinued. PHYSICAL EXAMINATION: VITAL SIGNS: Blood pressure 163/58, pulse 97, respirations 12, pulse 58. GENERAL: She is somewhat somnolent, but arousable. LUNGS: Decreased breath sounds at bases. ABDOMEN: Soft and nontender. HEART: Regular rate and rhythm. LABORATORY DATA: White count 5.6, hemoglobin 9.9, platelet count 64,000. INR 2.0 yesterday, not repeated today. BUN and creatinine are 8 and 2.16 today. Bilirubin is 7. AST and ALT are 25 and 17. Alkaline phosphatase is 80. Albumin is 3.9. ASSESSMENT: 1. Fairly refractory hepatic encephalopathy related to portal venous shunting spontaneous. 2. Acute renal failure, likely hepatorenal syndrome, on dialysis now. She continues on octreotide drip and albumin. Her midodrine was discontinued as her blood pressure is more than adequate without it for renal perfusion. Studies have not shown a benefit when the blood pressure is elevated. 3. 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 PLAN: Continue present care. Dr. Escobedo resumes care tomorrow. Job ID: [id number]
[2019-07-03] MEDS: Albumin 25% 25 GM/100 ML BOT IVPB SCH ×2 (16:02→20:29)
[2019-07-04] MEDS: Fentanyl 100 MCG/2 ML VIAL SLOW IVP PRN (01:17)
[2019-07-04] MEDS: Octreotide Acetate 1,250 MCG in Sodium Chloride 0.9% 250 ML 250 ML IVPB SCH (01:43)
[2019-07-04 04:56] LABS: ALT (SGPT) 14 U/L (8-55); AST (SGOT) 18 U/L (5-34); Albumin 4.4 g/dL (3.4-4.8); Alkaline Phosphatase 87 U/L (40-110); Anion Gap 12 mmol/L (10-20); BUN (Urea Nitrogen) 15 mg/dL (9.8-20.1); Bilirubin, Total 6.7 mg/dL (0.2-1.2); Calc. Creatinine Clearance 22 mL/min (70-130); Calcium 8.1 mg/dL (7.8-10.44); Carbon Dioxide 29 mmol/L (23-31); Chloride 102 mmol/L (98-107); Estimated GFR-MDRD 16; Globulin 2.3 g/dL (2.4-3.5); Glucose 146 mg/dL (83-110); Potassium 3.6 mmol/L (3.5-5.1); Protein, Total 6.7 g/dL (6.0-8.3); Sodium 139 mmol/L (136-145)
--- NOTE | 2019-07-04 08:29 | PRG ---
DATE OF SERVICE: 07/04/2019 SUBJECTIVE: Ms. Sung is talking today, who is profoundly improved from last week. OBJECTIVE: VITAL SIGNS: Temperature 97.8, pulse 67, and blood pressure 155/61. HEENT: Unremarkable. NECK: No JVD. CHEST: She has an erythematous rash with serous drainage. LUNGS: Clear. CARDIAC: S1 and S2. Regular. ABDOMEN: Soft. EXTREMITIES: Psoriatic changes. LABORATORY DATA: Sodium 139, potassium 3.6, chloride 102, CO2 of 29, BUN 15, creatinine 2.8, glucose 146, total bilirubin is down to 6.7, and albumin is 4.4. ASSESSMENT: 1. Hepatic encephalopathy, which is improved. 2. Acute renal failure, which is improved with dialysis. 3. Encephalopathy, improved. PLAN: 1. Continuing supportive care including the hemodialysis. 2. We would suggest family discussion regarding DNR status as I do not think this patient has long to live and her prognosis is extremely poor. Job ID: [id number]
[2019-07-04] MEDS: Albumin 25% 25 GM/100 ML BOT IVPB SCH ×2 (08:44→14:01)
[2019-07-04] MEDS: Pantoprazole 40 MG VIAL IVP SCH ×2 (08:44→20:33)
[2019-07-04] MEDS ORDERED: Heparin 10,000 UNITS/ 10 ML VIAL ONE (09:30)
--- NOTE | 2019-07-04 09:44 | PDOC.HOSPP ---
- Subjective Encounter Date: 07/04/19 Encounter Time: 09:42 Subjective: alert, oriented, feels well - Objective Vital Signs & Weight: Vital Signs (12 hours) Temp 07/04/19 07:04 97.8 F 07/04/19 03:55 97.2 F L 07/04/19 00:00 97.6 F Weight Admit Weight 189 lb 3.2 oz Weight 188 lb 6.4 oz Most Recent Monitor Data Heart Rate from ECG 67 NIBP 155/61 NIBP BP-Mean 92 Respiration from ECG 13 SpO2 99 I&O: 07/03/19 07/04/19 07/05/19 06:59 06:59 06:59 Intake Total 1533 1900 Output Total 2700 0 Balance -1167 1900 Result Diagrams: 07/03/19 05:55 07/04/19 03:30 Additional Labs: Accuchecks 07/04/19 07/03/19 07/03/19 04:25 22:27 16:15 POC Glucose 134 H 166 H 176 H 07/03/19 10:17 POC Glucose 134 H Hospitalist ROS - Medication Medications: Active Medications Generic Name Dose Route Start Last Admin Trade Name Freq PRN Reason Stop Dose Admin Acetaminophen 325 mg 06/28/19 12:56 07/03/19 10:17 Tylenol PO 325 mg Q4H PRN Administration Headache/Fever/Mild Pain (1-3) Albumin Human 25 gm 07/03/19 15:00 07/04/19 08:44 Albumin 25% IVPB 07/05/19 15:01 25 gm TID CHAPARRO Administration Fentanyl 25 mcg 07/02/19 09:39 07/04/19 01:17 Sublimaze SLOW IVP 25 mcg Q6H PRN Administration Pain Heparin Sodium (Porcine) 500 units 06/30/19 03:09 07/01/19 02:52 Heparin Lock Flush 100 Units/Ml IVF 500 unit PRN PRN Administration Heparin Flush Octreotide Acetate 1,250 mcg/ 251.25 mls @ 20.1 mls/hr 06/28/19 12:30 01:43 Sodium Chloride IVPB 251.25 mls INF CHAPARRO Administration 100 MCG/HR Levofloxacin 500 mg/ Device 100 mls @ 100 mls/hr 06/30/19 09:00 07/03/19 10: 17 IVPB 100 mls Q2DAYS@0900 CHAPARRO Administration Lactulose 20 gm 07/01/19 15:00 07/03/19 20:29 Lactulose PO 20 gm TID CHAPARRO Administration Lorazepam 0.5 mg 06/30/19 21:29 06/30/19 21:46 Ativan PER TUBE 0.5 mg HS PRN Administration Agitation Pantoprazole Sodium 40 mg 06/30/19 21:00 07/04/19 08:44 Protonix IVP 40 mg Q12HR CHAPARRO Administration Phytonadione 10 mg 07/03/19 09:00 07/03/19 10:17 Aquamephyton PO 07/07/19 09:01 10 mg DAILY CHAPARRO Administration Rifaximin 550 mg 06/29/19 21:00 07/03/19 20:29 Xifaxan PO 550 mg BID CHAPARRO Administration - Exam General Appearance: awake alert Neck: no JVD Heart: RRR, no murmur Respiratory: CTAB Gastrointestinal: soft, normal bowel sounds Extremities: no edema Hosp A/P (1) Acute metabolic encephalopathy Code(s): G93.41 - METABOLIC ENCEPHALOPATHY Status: Resolved (2) Acute renal failure superimposed on stage 3 chronic kidney disease Code(s): N17.9 - ACUTE KIDNEY FAILURE, UNSPECIFIED; N18.3 - CHRONIC KIDNEY DISEASE, STAGE 3 (MODERATE) Status: Acute Qualifiers: Acute renal failure type: unspecified Qualified Code(s): N17.9 - Acute kidney failure, unspecified; N18.3 - Chronic kidney disease, stage 3 (moderate) (3) Coronary artery disease Code(s): I25.10 - ATHSCL HEART DISEASE OF [place] CORONARY ARTERY W/O ANG PCTRS Status: Chronic Qualifiers: Coronary Disease-Associated Artery/Lesion type: [place] artery [place] vs. transplanted heart: [place] heart Associated angina: without angina Qualified Code(s): I25.10 - Atherosclerotic heart disease of [place] coronary artery without angina pectoris (4) Diabetes type 2, controlled Code(s): E11.9 - TYPE 2 DIABETES MELLITUS WITHOUT COMPLICATIONS Status: Chronic Qualifiers: Diabetes mellitus director long term care insulin use: without jail use Diabetes mellitus complication status: with kidney complications Diabetes mellitus complication detail: with chronic kidney disease Chronic kidney disease stage : stage 3 (moderate) Qualified Code(s): E11.22 - Type 2 diabetes mellitus with diabetic chronic kidney disease; N18.3 - Chronic kidney disease, stage 3 ( moderate) (5) Hypertension Code(s): I10 - ESSENTIAL (PRIMARY) HYPERTENSION Status: Chronic Qualifiers: Hypertension type: essential hypertension (6) Liver cirrhosis Code(s): K74.60 - UNSPECIFIED CIRRHOSIS OF LIVER Status: Chronic Qualifiers: Ascites presence: unspecified - Plan cont HD accu/ss/etc discuss with consultants
--- NOTE | 2019-07-04 11:24 | PDOC.PALCO ---
Palliative Care Consult - Consult Details Requesting Physician: Dr Joseph Reason for Consult: goals of care, advance directives assistance, assistance with communication prognosis/disease Family Members Present: Patient - Pertinent HPI Patient with frequent hospital admissions in 2019, with most recent discharge in May. Discharged home with caregiver, able to ambulate to the restroom with assistance and a walker. Primarily bedbound. states the patient was attempting to ambulate and fell, EMS called and patient was found to be hypotensive, bradycardiac. In the emergency room she became more hypothermic and was transitioned to IMCU. Dialysis has been initiated this hospital stay secondary to continued decline in renal function. - Pertinent PMH Cirrhosis of the liver, psoriasis, CKD, DM II, Hepatic encephalopathy, CAD, physical deconditioning, CABG, - Social History Smoking Status: Never smoker Smoking: no tobacco exposure Alcohol Use: none Drug Use History: none Living Situation: - Medications MAR Reviewed: Yes - Allergies Allergies/Adverse Reactions: Allergies Allergy/AdvReac Type Severity Reaction Status Date / Time naproxen sodium [From Aleve] Allergy Mild blisters Verified 03/22/19 23:14 ceftriaxone [From Rocephin] Allergy Unknown swelling Verified 03/22/19 23:14 acetaminophen [From [facility]] Allergy Verified 06/29/19 01:51 hydrocodone Allergy +++ drowsy Verified 03/22/19 23:14 meropenem AdvReac Rash Verified 05/21/19 21:34 - Subjective Verbal with slurred speech, confusion. Pronounced weakness, push of speech with minimal conversation. Difficult to obtain ROS secondary to patient inability to follow conversation and answer questions. - ROS Non Response: due to mental status Constitutional: lethargic, weakness ENT: dry mouth - Objective Vital Signs: Vital Signs - Most Recent Temp Pulse Resp BP Pulse Ox 98.0 F 15 99 07/04/19 11:15 07/02/19 18:00 07/04/19 08:00 Palliative Performance Scale: 30 - Physical Exam Constitutional: confusion, encephalitic, ill appearing HEENT: sclera anicteric, poor dentition Deviation from normal: Dry mucous memebranes Respiratory: diminished lung sound Deviation from normal: Mildly adventicious to mid/upper lobe Cardiovascular: no significant murmur, RRR Gastrointestinal: soft, non-tender, positive bowel sounds Musculoskeletal: muscle wasting Neurology: moves all 4 limbs Skin: fragile Deviation from normal: dry flaky psoriatic rash chest and extremities - Problem List (1) Psoriasis (a type of skin inflammation) Code(s): L40.9 - PSORIASIS, UNSPECIFIED Current Visit: Yes Status: Acute (2) Acute renal failure superimposed on stage 3 chronic kidney disease Code(s): N17.9 - ACUTE KIDNEY FAILURE, UNSPECIFIED; N18.3 - CHRONIC KIDNEY DISEASE, STAGE 3 (MODERATE) Current Visit: No Status: Acute Qualifiers: Acute renal failure type: unspecified Qualified Code(s): N17.9 - Acute kidney failure, unspecified; N18.3 - Chronic kidney disease, stage 3 (moderate) (3) Palliative care encounter Code(s): Z51.5 - ENCOUNTER FOR PALLIATIVE CARE Current Visit: No Status: Acute (4) Liver cirrhosis Code(s): K74.60 - UNSPECIFIED CIRRHOSIS OF LIVER Current Visit: No Status: Chronic Qualifiers: Ascites presence: unspecified (5) Physical deconditioning Code(s): R53.81 - OTHER MALAISE Current Visit: No Status: Chronic - Plan/Recommendations Plan: Attempted to visit with patient, confusion. Reviewed patient recent history with patient and discussed decline. Conversation in relation to multi organ dysfunction. He believes that God is in control. We discussed allowing for natural in the event of cessation of cardiac or pulmonary function, is in agreement. We further discussed if she improves that we can resend the DNAR order, paperwork completed. Mr Sung believes his is suffering, discussed that if we do not see improvement that we can revisit goals of care and discuss options other than aggressive measures for Mrs Sung. *Communicated with Katie Gupta/Jesse/Karan *Dnar order entered and consent placed on chart *Biotene ordered for mucous membranes [75] minutes spent on this encounter with >50% of the time in counseling and coordination of care. Thank you for this very appropriate consult.
[2019-07-04] MEDS: Phytonadione 10 MG/ML AMP PO SCH (14:01)
[2019-07-04] MEDS: Rifaximin 550 MG TAB PO SCH ×2 (14:01→20:33)
[2019-07-04] MEDS: Lorazepam 0.5 MG TAB PER TUBE PRN (20:34)
[2019-07-04] MEDS ORDERED: Nystatin Powder 15 GM BOT TOP PRN (21:39)
[2019-07-05 04:53] LABS: Hemoglobin 9.4 g/dL (12.0-16.0); Mean Corpuscular Hemoglobin 30.2 pg (27.0-31.0); Mean Corpuscular Volume 97.5 fL (78.0-98.0); Mean Platelet Volume 8.8 fL (7.4-10.4); Platelet Count 32 thou/uL (130-400); RBC Distribution Width 20.6 % (11.5-14.5); Red Blood Cell (RBC) Count 3.11 mill/uL (4.20-5.40); White Blood Cell (WBC) Count 6.1 thou/uL (4.8-10.8)
[2019-07-05 05:01] LABS: INR-International Normal Ratio 1.7; Prothrombin Time 19.5 SEC (12.0-14.7)
[2019-07-05 05:10] LABS: Albumin 4.4 g/dL (3.4-4.8); Anion Gap 10 mmol/L (10-20); BUN (Urea Nitrogen) 13 mg/dL (9.8-20.1); BUN/Creatinine Ratio 5.96; Calc. Creatinine Clearance 28 mL/min (70-130); Calcium 8.4 mg/dL (7.8-10.44); Carbon Dioxide 32 mmol/L (23-31); Chloride 102 mmol/L (98-107); Estimated GFR-MDRD 22; Glucose 145 mg/dL (83-110); Potassium 3.8 mmol/L (3.5-5.1); Sodium 140 mmol/L (136-145)
[2019-07-05 05:17] LABS: Phosphorus 1.6 mg/dL (2.3-4.7)
[2019-07-05] MEDS ORDERED: Potassium Phosphate 9 MMOL in Sodium Chloride 0.9% 100 ML IVPB SCH (06:00)
--- NOTE | 2019-07-05 09:01 | PRG ---
DATE OF SERVICE: 07/05/2019 SUBJECTIVE: She is doing better. She is much more awake than what she was. She is on dialysis intermittently. OBJECTIVE: VITAL SIGNS: Temperature 97.7, pulse 85, blood pressure 150/66, and O2 saturation 100%. HEENT: She still has NG tube in place for feeding. NECK: Erythematous lesions around her neck. CHEST: She has a right tunneled IJ dialysis catheter, and she has left subclavian line. LUNGS: Clear. CARDIAC: S1, S2. Regular. ABDOMEN: Soft. EXTREMITIES: She has the psoriatic skin changes throughout. LABORATORY DATA: White blood cell count 6.1, hematocrit 30, and platelet count 232. INR is 1.7. Sodium 140, potassium 3.8, chloride 102, CO2 of 32, BUN 13, creatinine 2.1, and glucose 145. ASSESSMENT: 1. Acute on chronic renal failure, requiring hemodialysis. 2. Hepatic encephalopathy, which was improved. 3. Oropharyngeal dysphagia. 4. Overall failure to thrive. PLAN: She will continue hemodialysis. Her antibiotics can likely be discontinued very soon. From my standpoint, she is stable for transfer to the floor. Job ID: [id number]
--- NOTE | 2019-07-05 09:44 | PRG ---
DATE OF SERVICE: 07/04/2019 SERVICE: Nephrology. SUBJECTIVE: A 79-year-old female with liver cirrhosis, CKD 4, seen in followup for acute on chronic renal failure, requiring hemodialysis. The patient is thought to have decompensated liver cirrhosis with hepatorenal syndrome. Mental status has improved and the patient is conversational currently. Still anuric with no urine output since admission. OBJECTIVE: VITAL SIGNS: Temperature 97.6, pulse 85, respiratory rate 14, SpO2 100% on 2 L nasal cannula, blood pressure is 147/78. GENERAL: Chronically ill-looking, elderly female. Icteric. Afebrile. HEENT: Normocephalic and atraumatic. NECK: Supple with resolving ecchymosis. CARDIOVASCULAR: Regular rhythm and rate. Normal heart sounds 1 and 2 with systolic murmur noted. RESPIRATORY: Decreased air entry at both bases with some scattered crackles and some rhonchi. GI: Obese, soft. Diffuse tenderness noted with hypoactive bowel sounds. EXTREMITIES: Trace to mild edema of the extremities noted. Edema of the thigh and posterior trunk noted. BREAKFAST COOK: Conscious and alert and oriented to person and place. Face is symmetrical. SKIN: Scattered macules, papules, and plaques with scales noted. DIAGNOSTIC DATA: Renal function panel showed sodium 139, potassium 3.6, chloride 102, BUN 15, creatinine 2.88, glucose 146, calcium 8.1, total bilirubin is 6.7, AST is 18, ALT 14, alkaline phosphatase 87, total protein 6.7, albumin 4.4, globulin 2.3. ASSESSMENT: 1. Acute on chronic renal failure, requiring hemodialysis. 2. Presumed hepatorenal syndrome. 3. Decompensated liver cirrhosis with anasarca and coagulopathy and hyperbilirubinemia. 4. Hypotension: Improved. Blood pressure is now up, such that the patient is of midodrine. 5. Acute on chronic blood loss anemia. PLAN: 1. We will dialyze the patient today for 4 hours with 4K bath and UF as tolerated. 2. We will adjust antihypertensives to get adequate blood pressure control. 3. We will plan to having a meeting with the patient's spouse and children at the bedside tomorrow by 9:00 to discuss care plan as well as care options in view of end-stage liver disease in a patient who is not amenable or rather a transplant candidate. Job ID: [id number]
--- NOTE | 2019-07-05 09:53 | PDOC.HOSPP ---
- Subjective Encounter Date: 07/05/19 Encounter Time: 09:51 Subjective: alert, no distress - Objective Vital Signs & Weight: Vital Signs (12 hours) Temp Pulse Ox 07/05/19 08:00 100 07/05/19 07:17 97.7 F 07/05/19 03:39 97.6 F 07/04/19 23:22 98.1 F Weight Admit Weight 189 lb 3.2 oz Weight 179 lb 14.355 oz Most Recent Monitor Data Heart Rate from ECG 85 NIBP 150/66 NIBP BP-Mean 94 Respiration from ECG 0 SpO2 100 I&O: 07/04/19 07/05/19 07/06/19 06:59 06:59 06:59 Intake Total 1900 1227 Output Total 0 4000 Balance 1900 -2773 Result Diagrams: 07/05/19 04:30 07/05/19 04:30 Additional Labs: Accuchecks 07/05/19 07/05/19 07/04/19 06:08 00:23 22:13 POC Glucose 139 H 162 H 168 H 07/04/19 07/04/19 18:12 12:31 POC Glucose 141 H 112 H Hospitalist ROS - Medication Medications: Active Medications Generic Name Dose Route Start Last Admin Trade Name Freq PRN Reason Stop Dose Admin Acetaminophen 325 mg 06/28/19 12:56 07/03/19 10:17 Tylenol PO 325 mg Q4H PRN Administration Headache/Fever/Mild Pain (1-3) Fentanyl 25 mcg 07/02/19 09:39 07/04/19 01:17 Sublimaze SLOW IVP 25 mcg Q6H PRN Administration Pain Heparin Sodium (Porcine) 500 units 06/30/19 03:09 07/01/19 02:52 Heparin Lock Flush 100 Units/Ml IVF 500 unit PRN PRN Administration Heparin Flush Levofloxacin 500 mg/ Device 100 mls @ 100 mls/hr 06/30/19 09:00 07/03/19 10: 17 IVPB 100 mls Q2DAYS@0900 CHAPARRO Administration Potassium Phosphate 9 mmol/ 103 mls @ 25 mls/hr 07/05/19 06:00 07/05/19 05:50 Sodium Chloride IVPB 07/05/19 10:08 103 mls NOW CHAPARRO Administration Lactulose 20 gm 07/01/19 15:00 07/04/19 20:33 Lactulose PO 20 gm TID CHAPARRO Administration Lorazepam 0.5 mg 06/30/19 21:29 07/04/19 20:34 Ativan PER TUBE 0.5 mg HS PRN Administration Agitation Pantoprazole Sodium 40 mg 06/30/19 21:00 07/04/19 20:33 Protonix IVP 40 mg Q12HR CHAPARRO Administration Phytonadione 10 mg 07/03/19 09:00 07/04/19 14:01 Aquamephyton PO 07/07/19 09:01 10 mg DAILY CHAPARRO Administration Rifaximin 550 mg 06/29/19 21:00 07/04/19 20:33 Xifaxan PO 550 mg BID CHAPARRO Administration - Exam Neck: no JVD Heart: RRR, no murmur Respiratory: CTAB Gastrointestinal: soft, normal bowel sounds Extremities: no edema Hosp A/P (1) Acute renal failure superimposed on stage 3 chronic kidney disease Code(s): N17.9 - ACUTE KIDNEY FAILURE, UNSPECIFIED; N18.3 - CHRONIC KIDNEY DISEASE, STAGE 3 (MODERATE) Status: Acute Qualifiers: Acute renal failure type: unspecified Qualified Code(s): N17.9 - Acute kidney failure, unspecified; N18.3 - Chronic kidney disease, stage 3 (moderate) (2) Coronary artery disease Code(s): I25.10 - ATHSCL HEART DISEASE OF [place] CORONARY ARTERY W/O ANG PCTRS Status: Chronic Qualifiers: Coronary Disease-Associated Artery/Lesion type: [place] artery [place] vs. transplanted heart: [place] heart Associated angina: without angina Qualified Code(s): I25.10 - Atherosclerotic heart disease of [place] coronary artery without angina pectoris (3) Diabetes type 2, controlled Code(s): E11.9 - TYPE 2 DIABETES MELLITUS WITHOUT COMPLICATIONS Status: Chronic Qualifiers: Diabetes mellitus residential insulin use: without extermination inspector use Diabetes mellitus complication status: with kidney complications Diabetes mellitus complication detail: with chronic kidney disease Chronic kidney disease stage : stage 3 (moderate) Qualified Code(s): E11.22 - Type 2 diabetes mellitus with diabetic chronic kidney disease; N18.3 - Chronic kidney disease, stage 3 ( moderate) (4) Hypertension Code(s): I10 - ESSENTIAL (PRIMARY) HYPERTENSION Status: Chronic Qualifiers: Hypertension type: essential hypertension (5) Liver cirrhosis Code(s): K74.60 - UNSPECIFIED CIRRHOSIS OF LIVER Status: Chronic Qualifiers: Ascites presence: unspecified - Plan cont HD accu/ss/etc cont xifaxin move to floor
[2019-07-05] MEDS: Pantoprazole 40 MG VIAL IVP SCH ×2 (10:07→21:38)
[2019-07-05] MEDS: Rifaximin 550 MG TAB PO SCH ×2 (10:08→21:38)
[2019-07-05] MEDS: Phytonadione 10 MG/ML AMP PO SCH (10:08)
[2019-07-05] MEDS: Acetaminophen 325 MG TAB PO PRN (10:09)
--- NOTE | 2019-07-05 11:15 | PRG ---
DATE OF SERVICE: 07/05/2019 SERVICE: Nephrology. SUBJECTIVE: A 79-year-old female with liver cirrhosis and CKD, seen in followup for acute renal failure, thought to be hepatorenal syndrome, on hemodialysis. The patient was treated with octreotide, midodrine, and albumin with no improvement. Still anuric. Mental status has actually improved and the patient is currently conversational. OBJECTIVE: VITAL SIGNS: Temperature 97.7, pulse 85, respiratory rate 15, SpO2 of 100 on 2 L nasal cannula, and blood pressure is 150/66. GENERAL: Elderly female, in no obvious distress. Chronically ill looking. HEENT: Normocephalic and atraumatic. Oral mucosa is moist. NG tube is in place. CARDIOVASCULAR: Regular rhythm and rate with normal heart sounds 1 and 2. RESPIRATORY: Fair air entry bilateral, decreased at both bases with some transmitted breath sounds. GI: Obese with abdominal wall tenderness. EXTREMITIES: Mild edema of the extremities noted. SKIN: Icteric. Scattered macules, papules, and plaques with silvery scales noted. REPAIRER CYLINDER HEADS: Conscious and alert. Oriented to person and place at least. Moves all extremities. DIAGNOSTIC DATA: CBC showed WBC count of 6.1, hemoglobin of 9.4, and platelets of 32. Coagulation panel showed INR of 1.7 and PTT of 19.7, which is improved from admission level of 2.2. Renal function panel showed sodium 140, potassium 3.8, chloride 102, CO2 of 32, BUN 13, creatinine 2.18, glucose 145, calcium 8.4, phosphorus 1.6, and albumin 4.4. ASSESSMENT: 1. Acute renal failure due to hepatorenal syndrome. 2. Chronic kidney disease, stage 4. 3. Decompensated liver cirrhosis. 4. Anasarca. 5. Metabolic acidosis. 6. Acute metabolic encephalopathy due to hepatic and uremic encephalopathy. 7. Hypophosphatemia. 8. Psoriasis with acute flare. 9. Hyperbilirubinemia. PLAN: 1. We will monitor the patient today off dialysis to see if she could make any urine. 2. The patient is currently off midodrine, octreotide, and albumin. 3. Tube feeding to continue. 4. We will have a discussion with family members tomorrow about care plan. Schedule meeting earlier today could not hold as no family member is around. We will plan on dialyzing the patient tomorrow again. Further treatment to follow depending on hospital course. Job ID: [id number]
--- NOTE | 2019-07-05 14:32 | RAD ---
MODIFIED BARIUM SWALLOW IN THE PRESENCE OF SPEECH PATHOLOGIST: EXPOSURE: 1.168 mg/cm2, 2.2 minutes. HISTORY: Dysphagia, unspecified. Feeding difficulties. FINDINGS: The presence of speech pathologist, the patient was administered thin liquid, nectar thick, honey thi ck and puree consistencies. There is evidence of penetration and aspiration with significant oral residua with all the aforement ioned consistencies. There is also evidence of penetration with thin liquid consistencies via straw. IMPRESSION: Evidence of significant recurrent episodes of penetration and aspiration due to oral residue. Refer t o speech pathologist's report for feeding recommendation. Transcribed Date/Time: 07/05/2019 3:17 PM
--- NOTE | 2019-07-05 16:36 | PDOC.PALPN ---
Palliative Progress Note - Subjective Resting, awakens but confused and returns to sleep state. Remains with NG to nare. O2 via NC. - Objective Vital Signs: Vital Signs - Most Recent Temp Pulse Resp BP Pulse Ox 97.2 F L 86 15 154/86 H 97 07/05/19 15:30 07/04/19 14:40 07/02/19 18:00 07/04/19 14:40 07/05/19 11:28 - Physical Exam Constitutional: confusion, encephalitic, ill appearing, mild distress HEENT: moist MMs, poor dentition Respiratory: accessory muscle use, labored respirations Cardiovascular: RRR Deviation from normal: distended Musculoskeletal: no cyanosis, no clubbing, muscle wasting Neurology: moves all 4 limbs Skin: fragile - Assessment (1) Psoriasis (a type of skin inflammation) Code(s): L40.9 - PSORIASIS, UNSPECIFIED Status: Acute (2) Acute renal failure superimposed on stage 3 chronic kidney disease Code(s): N17.9 - ACUTE KIDNEY FAILURE, UNSPECIFIED; N18.3 - CHRONIC KIDNEY DISEASE, STAGE 3 (MODERATE) Status: Acute Qualifiers: Acute renal failure type: unspecified Qualified Code(s): N17.9 - Acute kidney failure, unspecified; N18.3 - Chronic kidney disease, stage 3 (moderate) (3) Palliative care encounter Code(s): Z51.5 - ENCOUNTER FOR PALLIATIVE CARE Status: Acute (4) Liver cirrhosis Code(s): K74.60 - UNSPECIFIED CIRRHOSIS OF LIVER Status: Chronic Qualifiers: Ascites presence: unspecified (5) Physical deconditioning Code(s): R53.81 - OTHER MALAISE Status: Chronic - Plan Plan: Patient and son at bedside. Reviewed results of swallow study and asked for "teach back" to assess for understanding, appears is having difficulty in understanding the dysphagia, complication risk, and possible need for a PEG. Palliative Care will continue to follow to discuss goals of care for patient and potential complex decisions that may present. [45] minutes spent on this encounter with >50% of the time in counseling and coordination of care. - ROS Constitutional: alert ENT: alteration in dentition, difficulty swallowing Respiratory: shortness of breath Cardiology: light headedness Skin: bruising, dry, flakey
--- NOTE | 2019-07-05 21:21 | PRG ---
DATE OF SERVICE: 07/05/2019 REASON FOR CONSULTATION: Cirrhosis, possible hepatorenal syndrome. SUBJECTIVE: Per nursing staff and family, the patient has been a bit more alert and interactive today. She was able to participate in physical therapy earlier today at bedside, but is not currently able to ambulate on her own. She does also continue to be somewhat somnolent and during the course of this interview, was slipping into sleep rather easily, but was easily arousable. Currently, there has not been any episodes of nausea, vomiting, fevers, chills, hematemesis, melena, or hematochezia. She has been tugging at the NG tube on occasion, but has not been inadvertently removed. Speech Pathology evaluated the patient earlier today with a modified barium swallow study. OBJECTIVE: VITAL SIGNS: Temperature 97.5, pulse 60, blood pressure 126/64, respiratory rate 20, and saturating 98% on 2 L nasal cannula. GENERAL: The patient was lying in bed, in no acute distress. Alert and oriented x3. She did display increased somnolence, but was easily arousable. CARDIOVASCULAR: Regular rate and rhythm. RESPIRATORY: Clear to auscultation bilaterally. ABDOMEN: Normoactive bowel sounds. Soft. Moderate abdominal distention with thickening of the skin of the bilateral flanks secondary to anasarca. Nontender to palpation. EXTREMITIES: 1+ bilateral lower extremity edema extending up to mid hahn on both lower extremities. LABORATORY DATA: CBC with a white blood cell count of 6.1, hemoglobin 9.4, hematocrit 30.3, platelets 32. INR 1.7. Chemistry with a sodium of 140, potassium 3.8, chloride 102, CO2 of 32, BUN 13, creatinine 2.18, glucose 145. IMAGING DATA: A modified barium swallow study was obtained on July 05, 2019, which showed significant recurrent episodes of penetration and aspiration due to oral residue with thin liquids and nectar thick liquids. 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 Hepatorenal syndrome/acute renal failure: The patient initially presented with worsening of her liver and renal function concerning for the presence of hepatorenal syndrome. Despite administration of albumin, octreotide, and midodrine, she did not have any significant improvement in liver or renal function. However, with placing the patient on dialysis, she has had improvement in her liver function as evidenced by a decreased INR (total bilirubin not available for review today). However, she continues to be anuric and will most likely need to be on dialysis permanently. Given her advanced age and now dialysis history, she is not currently a transplant candidate, especially with a history of recurrent urinary tract infections. Recommendations; 1. Agree with discontinuation of the midodrine, octreotide, and albumin infusions. 2. We will continue to monitor renal function while on dialysis and/or evaluate for urine production. 3. Would defer to Nephrology in terms of timing of dialysis and long-term plans concerning this modality. Cirrhosis: The patient is presenting with a history of cirrhosis, likely secondary to fatty liver/nonalcoholic steatohepatitis. Per liver biopsy obtained in 2019, it did show evidence of significant fibrosis, but was equivocal for the actual diagnosis of cirrhosis. However, she does have an existent spleno-caval shunt, likely due to severe portal hypertension and as such has not been manifesting more common sequelae of portal hypertension due to this shunt, but has been resulting in recurrent episodes of hepatic encephalopathy. At the current time, she is presenting with decompensated liver disease, but has had improvement in her liver labs over the last few days while being on dialysis. She does not have an updated total bilirubin to accurately calculate a MELD score, but based on her most recent calculation, carries an overall poor prognosis. Recommendations; 1. Would continue lactulose administration in addition to rifaximin for hepatic encephalopathy with goal to achieve approximately 3 to 4 bowel movements per day. 2. We would continue to confer with the patient and the patient's family about her poor prognosis and ultimately long-term management. Dysphagia: The patient is presenting with a long-term history of increased coughing/gagging episodes with the consumption of oral intake of foods per the patient's . However, modified barium swallow study performed during this admission confirmed the diagnosis of penetration and aspiration with most food consistencies consistent with oropharyngeal dysphagia. Currently, she is receiving tube feeds via an NG tube and has been able to tolerate this thus far, although she has exhibited behaviors to attempt to remove the NG tube itself. Given her concurrent diagnosis of cirrhosis with possible ascites on recent imaging, the placement of a percutaneous gastrostomy tube is ill-advised given the increased risk of infection, especially in patients with ascites. Upon discussing nutritional intake with the patient's , he agrees that percutaneous gastrostomy tube is also not within the patient's wishes as well. However, I did discuss with him the pitfalls of oral intake that could ultimately result in aspiration pneumonia. At this time, he realizes the risk of oral intake and adds "we've been doing this for a long time with nothing happening just yet, but it's all in his hands." Recommendations; 1. We would continue tube feeds for tonight, but discontinue tube feeds tomorrow as well as removal of the NG tube. 2. Per the patient's wishes and per discussion with the patient's , I would start her on a thickened diet with aspiration precautions and continue to monitor the patient. 3. PEG tube placement is ill-advised at this time given the increased risk of infection in a cirrhotic patient with ascites and would only be considered secondary to palliative purposes. We will continue to follow. Please call with any questions. Job ID: [id number]
[2019-07-05] MEDS ORDERED: Acetaminophen 325 MG/10.15 ML UDCUP PER TUBE PRN (21:51)
[2019-07-05] MEDS ORDERED: Calcium Carbonate 500 MG ChewTAB PER TUBE PRN (22:00)
[2019-07-06] MEDS ORDERED: Aquaphor 10 GM TUBE TOP PRN (01:19)
[2019-07-06] MEDS ORDERED: Triamcinolone 0.1% Cream 15 GM TUBE TOP SCH (02:00)
[2019-07-06] MEDS ORDERED: Triamcinolone 0.1% Cream 30 GM TUBE TOP SCH (02:00)
[2019-07-06] MEDS: Lorazepam 0.5 MG TAB PER TUBE PRN (02:42)
[2019-07-06] MEDS ORDERED: Heparin 10,000 UNITS/ 10 ML VIAL ONE (08:23)
--- NOTE | 2019-07-06 09:10 | PRG ---
DATE OF SERVICE: 07/06/2019 SUBJECTIVE: Start today in dialysis. She was not quite as awake as she was yesterday, but she was able to vocalize some words to me. She had no acute complaints. OBJECTIVE: VITAL SIGNS: Temperature 97.2, pulse 63, respirations 22, O2 saturation 98%, and blood pressure 148/82. SKIN: Does not show near as much erythema around the neck and upper torso as it did yesterday. 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 HEENT: Otherwise unremarkable. NECK: No JVD. CHEST: Clear. CARDIAC: S1 and S2, regular. ABDOMEN: Protuberant. LABORATORY DATA: No new labs were done today. ASSESSMENT: 1. [id number] renal failure. 2. Hepatic encephalopathy. 3. Oropharyngeal dysfunction. PLAN: Continuing hemodialysis and supportive care. Nothing further to add from Pulmonary standpoint. We will be available as needed. Job ID: [id number]
[2019-07-06] MEDS: Phytonadione 10 MG/ML AMP PO SCH (14:59)
[2019-07-06] MEDS: Pantoprazole 40 MG VIAL IVP SCH ×2 (14:59→22:45)
[2019-07-06] MEDS: Rifaximin 550 MG TAB PER TUBE SCH ×2 (14:59→22:45)
--- NOTE | 2019-07-06 15:12 | PDOC.HOSPP ---
- Subjective Encounter Date: 07/06/19 Encounter Time: 15:10 Subjective: alert, post HD , no CO - Objective Vital Signs & Weight: Vital Signs (12 hours) Temp Pulse Resp BP Pulse Ox 07/06/19 08:00 98 07/06/19 07:34 97.2 F L 63 22 H 148/82 H 98 07/06/19 05:02 97.3 F L 87 18 148/66 H 99 Weight Admit Weight 189 lb 3.2 oz Weight 188 lb 1.6 oz Most Recent Monitor Data Heart Rate from ECG 66 NIBP 139/54 NIBP BP-Mean 82 Respiration from ECG 2 SpO2 98 I&O: 07/05/19 07/06/19 07/07/19 06:59 06:59 06:59 Intake Total 1227 750 Output Total 4000 Balance -2773 750 Result Diagrams: 07/05/19 04:30 07/05/19 04:30 Additional Labs: Accuchecks 07/06/19 07/05/19 07/05/19 06:13 23:53 18:07 POC Glucose 140 H 160 H 149 H Hospitalist ROS - Medication Medications: Active Medications Generic Name Dose Route Start Last Admin Trade Name Freq PRN Reason Stop Dose Admin Fentanyl 25 mcg 07/02/19 09:39 07/04/19 01:17 Sublimaze SLOW IVP 25 mcg Q6H PRN Administration Pain Heparin Sodium (Porcine) 500 units 06/30/19 03:09 07/01/19 02:52 Heparin Lock Flush 100 Units/Ml IVF 500 unit PRN PRN Administration Heparin Flush Levofloxacin 500 mg/ Device 100 mls @ 100 mls/hr 06/30/19 09:00 07/06/19 14: 59 IVPB Not Given Q2DAYS@0900 CHAPARRO Lactulose 20 gm 07/06/19 09:00 07/06/19 14:59 Lactulose PER TUBE 20 gm TID CHAPARRO Administration Lorazepam 0.5 mg 06/30/19 21:29 07/06/19 02:42 Ativan PER TUBE 0.5 mg HS PRN Administration Agitation Pantoprazole Sodium 40 mg 06/30/19 21:00 07/06/19 14:59 Protonix IVP 40 mg Q12HR CHAPARRO Administration Phytonadione 10 mg 07/03/19 09:00 07/06/19 14:59 Aquamephyton PO 07/07/19 09:01 10 mg DAILY CHAPARRO Administration Rifaximin 550 mg 07/06/19 09:00 07/06/19 14:59 Xifaxan PER TUBE 550 mg BID CHAPARRO Administration - Exam General Appearance: awake alert Neck: no JVD Heart: RRR, no murmur Respiratory: CTAB Gastrointestinal: soft, non-tender, normal bowel sounds Extremities: 1+ LE edema Hosp A/P (1) Acute renal failure superimposed on stage 3 chronic kidney disease Code(s): N17.9 - ACUTE KIDNEY FAILURE, UNSPECIFIED; N18.3 - CHRONIC KIDNEY DISEASE, STAGE 3 (MODERATE) Status: Acute Qualifiers: Acute renal failure type: unspecified Qualified Code(s): N17.9 - Acute kidney failure, unspecified; N18.3 - Chronic kidney disease, stage 3 (moderate) (2) Coronary artery disease Code(s): I25.10 - ATHSCL HEART DISEASE OF [place] CORONARY ARTERY W/O ANG PCTRS Status: Chronic Qualifiers: Coronary Disease-Associated Artery/Lesion type: [place] artery [place] vs. transplanted heart: [place] heart Associated angina: without angina Qualified Code(s): I25.10 - Atherosclerotic heart disease of [place] coronary artery without angina pectoris (3) Diabetes type 2, controlled Code(s): E11.9 - TYPE 2 DIABETES MELLITUS WITHOUT COMPLICATIONS Status: Chronic Qualifiers: Diabetes mellitus termite control servicer insulin use: without fpc use Diabetes mellitus complication status: with kidney complications Diabetes mellitus complication detail: with chronic kidney disease Chronic kidney disease stage : stage 3 (moderate) Qualified Code(s): E11.22 - Type 2 diabetes mellitus with diabetic chronic kidney disease; N18.3 - Chronic kidney disease, stage 3 ( moderate) (4) Hypertension Code(s): I10 - ESSENTIAL (PRIMARY) HYPERTENSION Status: Chronic Qualifiers: Hypertension type: essential hypertension (5) Liver cirrhosis Code(s): K74.60 - UNSPECIFIED CIRRHOSIS OF LIVER Status: Chronic Qualifiers: Ascites presence: unspecified - Plan cont HD accu/ss/etc cont xifaxin NG out- thickened liquids
--- NOTE | 2019-07-06 16:15 | PRG ---
DATE OF SERVICE: 07/06/2019 REASON FOR CONSULTATION: Cirrhosis, possible hepatorenal syndrome, dysphagia. SUBJECTIVE: Per nursing staff and family, there was no acute events or problems overnight. The NG tube had not yet been removed nor has she been started on a diet as of yet. She was currently in dialysis and tolerating dialysis well, although somewhat somnolent during the course of the interview. Per nursing staff, there has been no episodes of nausea, vomiting, fevers, chills, or GI bleeding. OBJECTIVE: VITAL SIGNS: Temperature 97.2, pulse 63, blood pressure 148/82, respiratory rate 22, and saturating 98% on 2 L nasal cannula. GENERAL: The patient was lying in bed, in no acute distress. Alert and oriented x3. She did display increased somnolence during the course of the interview, but was easily arousable. CARDIOVASCULAR: Regular rate and rhythm. RESPIRATORY: Clear to auscultation bilaterally. ABDOMEN: Normoactive bowel sounds. Soft. Moderate abdominal distention with thickening of the skin in bilateral flanks secondary to anasarca. Nontender to palpation in all abdominal quadrants. EXTREMITIES: 1+ bilateral lower extremity edema extending up to the hahn. LABORATORY DATA: No current studies are available for review. IMAGING DATA: No current GI imaging is available for review. ASSESSMENT AND PLAN: The patient is a 79-year-old female with past medical history of cryptogenic cirrhosis (most likely nonalcoholic steatohepatitis versus fatty liver), complicated by recurrent hepatic encephalopathy secondary to splenocaval shunt, now presenting with acute renal failure, coagulopathy and worsening liver function, initially concerning for hepatorenal syndrome, but now responding to dialysis in addition to worsening dysphagia. 1. Hepatic renal syndrome/acute renal failure: a. The patient initially presented with worsening of her liver and renal function concerning for the presence of hepatorenal syndrome. Despite administration of albumin, octreotide, and midodrine, she did not have any significant improvement in her liver function and remains anuric at this time. However, upon placing the patient on dialysis, she has had improvement in her liver function, making the likelihood of being on dialysis permanently more likely. Given her advanced age and now renal failure, she is not currently a transplant candidate, especially with a history of recurrent urinary tract infections. b. Recommendations: I. Agree with continuation of dialysis per Nephrology recommendations. 2. Cirrhosis: a. The patient is also presenting with a history of cirrhosis likely secondary to fatty liver/nonalcoholic steatohepatitis. Her cirrhosis has been complicated by recurrent episodes of hepatic encephalopathy, which are secondary to an existing splenocaval shunt, likely due to severe portal hypertension. However, with the presence of the shunt, she has not exhibited typical symptoms of portal hypertension including thrombocytopenia, splenomegaly, or variceal formation, but with the bypassing the liver to the inferior vena cava, does place her at increased risk for hepatic encephalopathy. With institution of dialysis, she has had some improvement in her liver function, although her liver function does still continue to remain tenuous with a significantly elevated MELD score during this admission. Overall based on the patient's current liver function and renal function, her overall prognosis . b. Recommendations: I. We would continue lactulose administration in addition to rifaximin 550 mg b.i.d. for hepatic encephalopathy and goal to achieve approximately 3 to 4 bowel movements per day. II. We will continue to confer with the patient and the patient's family about her poor prognosis and ultimately long-term management for cirrhosis in light of acute renal failure. 3. Dysphagia: a. The patient is presenting with a long-term history of increased coughing/gagging episodes with the consumption of primarily solid foods, but during the course of this hospitalization, formal swallow study showed evidence of penetration and aspiration consistent with oropharyngeal dysphagia. During the course of this hospitalization, she was receiving tube feeds and medications via an NG tube and was able to tolerate this modality thus far. However, given her history of cirrhosis and possible ascites on recent imaging, the placement of a percutaneous gastrostomy tube as a replacement for the NG tube is ill-advised given the significant increased risk of infection with placement. Also, upon discussing nutritional intake with the patient's , he agrees the percutaneous gastrostomy tube was not within the patient's wishes as well. I did discuss the risks of increased aspiration and/or pneumonia with changing the patient's oral intake and he is aware of the risks at this time. b. Recommendations: I. We would discontinue NG tube in favor of a mechanical soft diet with strict aspiration precautions. II. Percutaneous gastrostomy tube placement is ill-advised at this time given the increased risk of infection in a cirrhotic patient with ascites. This modality would only be considered secondary to palliative purposes and in accordance with the patient's wishes. We will continue to follow. Please call with any questions. Job ID: [id number]
--- NOTE | 2019-07-06 21:41 | PRG ---
DATE OF SERVICE: 07/06/2019 SERVICE: Nephrology. SUBJECTIVE: A 79-year-old female seen in followup for acute renal failure due to hepatorenal syndrome. Mental status has improved. The patient is conversational. The patient was seen in dialysis little earlier today. She was also seen during a family meeting later on. OBJECTIVE: VITAL SIGNS: Temperature 97.9, pulse 66, respiratory rate 18, SpO2 of 100% on 2 L nasal cannula, blood pressure is 134/65. GENERAL: Chronically ill-looking elderly female, in no obvious distress. Afebrile, but icteric. HEENT: Normocephalic, atraumatic. Oral mucosa is moist. CARDIOVASCULAR: Regular rhythm and rate with normal heart sounds 1 and 2. Systolic murmur noted. RESPIRATORY: Fair air entry bilaterally with few scattered transmitted breath sounds and rhonchi. Work of breathing is not increased. GASTROINTESTINAL: Obese, soft, with diffuse abdominal wall edema. EXTREMITIES: Mild extremity edema. Mild to moderate trunk edema including anterior chest wall and abdominal wall edema. SKIN: Erythema as well as papules and plaques noted on the skin with silvery scale desquamation. CENTRAL NERVOUS SYSTEM: Conscious and alert. Oriented to person and place at least. Moves all extremities, but weakly. DIAGNOSTIC DATA: No lab work today. ASSESSMENT: 1. Acute renal failure: Due to hepatorenal syndrome. On hemodialysis currently. 2. Hepatorenal syndrome. 3. Chronic kidney disease stage 4. 4. Decompensated liver cirrhosis. 5. Anasarca. 6. Coagulopathy. 7. Hyperbilirubinemia. 8. Acute encephalopathy due to liver and kidney failure. DISCUSSION/PLAN: 1. I had an extensive discussion with family with the patient and relatives including spouse and children at the bedside. We went over medical conditions including decompensated liver cirrhosis/end-stage liver disease as well as a renal failure presumed to be hepatorenal syndrome. We will also discuss dialysis treatment. The patient and family elected to put continue dialysis. They also concerned that the patient is not ambulating and are open to rehab placement. 2. The patient had hemodialysis earlier today for 4 hours with UF as tolerated. 3. We will consult Case Management to help with outpatient dialysis unit arrangement. 4. We will recheck CMP and CBC in the morning. The patient can be discharged from this point of view once outpatient dialysis chair is arranged. We need to continue lactulose re-emphasized. Further treatment to follow depending on hospital course. This encounter took more than 67 minutes. Job ID: [id number]
[2019-07-07 06:52] LABS: Hemoglobin 9.3 g/dL (12.0-16.0); INR-International Normal Ratio 1.4; Mean Corpuscular HGB CONC 31.2 g/dL (32.0-36.0); Mean Corpuscular Hemoglobin 31.2 pg (27.0-31.0); Mean Platelet Volume 8.9 fL (7.4-10.4); Platelet Count 27 thou/uL (130-400); Prothrombin Time 17.6 SEC (12.0-14.7); RBC Distribution Width 22.3 % (11.5-14.5); Red Blood Cell (RBC) Count 2.96 mill/uL (4.20-5.40); White Blood Cell (WBC) Count 5.6 thou/uL (4.8-10.8)
[2019-07-07 07:08] LABS: ALT (SGPT) 9 U/L (8-55); AST (SGOT) 18 U/L (5-34); Alkaline Phosphatase 91 U/L (40-110); Anion Gap 15 mmol/L (10-20); BUN (Urea Nitrogen) 17 mg/dL (9.8-20.1); Bilirubin, Total 4.6 mg/dL (0.2-1.2); Calc. Creatinine Clearance 27 mL/min (70-130); Calcium 8.3 mg/dL (7.8-10.44); Carbon Dioxide 29 mmol/L (23-31); Chloride 101 mmol/L (98-107); Estimated GFR-MDRD 21; Globulin 2.8 g/dL (2.4-3.5); Glucose 74 mg/dL (83-110); Potassium 4.5 mmol/L (3.5-5.1); Protein, Total 6.8 g/dL (6.0-8.3); Sodium 140 mmol/L (136-145)
[2019-07-07 07:28] LABS: #Eosinphils 0.2 thou/uL (0.0-0.7); #Lymphocytes 0.9 thou/uL (1.20-3.40); #Monocytes 0.8 thou/uL (0.11-0.59); #Neutrophils 3.6 thou/uL (1.40-6.50); %Basophils 0.5 % (0.0-1.0); %Eosinophils 3.3 % (0.0-10.0); %Lymphocytes 16.7 % (21.0-51.0); %Monocytes 14.8 % (0.0-10.0); %Neutrophils 64.7 % (42.0-75.0)
[2019-07-07 07:45] LABS: Hypochromia SLIGHT = 6-15 cells (100X) (0-5/hpf); MDiff Complete? YES; Platelet Morphology Comment Appears Decreased; Polychromasia SLIGHT = 2-3 cells (100X) (0-2/hpf); Stomatocytes SLIGHT = 2-5 cells (100X) (0-1/hpf)
[2019-07-07] MEDS: Rifaximin 550 MG TAB PER TUBE SCH ×2 (09:10→21:59)
[2019-07-07] MEDS: Pantoprazole 40 MG VIAL IVP SCH ×2 (09:10→21:59)
[2019-07-07 09:19] LABS: Hep B Core Total Ab Non-Reactive (NonReactive); Hep B Core Total Index 0.07 S/CO (0-0.79); Hep B Surf Ag Non-Reactive S/CO (NonReactive); Hep C IgG Ab Non-Reactive (NonReactive); Hep C Index 0.14 S/CO (0-0.79)
--- NOTE | 2019-07-07 09:32 | PDOC.HOSPP ---
- Subjective Encounter Date: 07/07/19 Encounter Time: 09:31 Subjective: eating,noCO - Objective Vital Signs & Weight: Vital Signs (12 hours) Temp Pulse Resp BP Pulse Ox 07/07/19 07:42 98.2 F 70 18 147/55 H 100 Weight Admit Weight 189 lb 3.2 oz Weight 179 lb 12.591 oz Most Recent Monitor Data Heart Rate from ECG 66 NIBP 139/54 NIBP BP-Mean 82 Respiration from ECG 2 SpO2 98 I&O: 07/06/19 07/07/19 07/08/19 06:59 06:59 06:59 Intake Total 750 30 Balance 750 30 Result Diagrams: 07/07/19 06:10 07/07/19 06:10 Additional Labs: Accuchecks 07/07/19 07/06/19 07/06/19 04:12 19:41 15:34 POC Glucose 81 148 H 133 H Hospitalist ROS - Medication Medications: Active Medications Generic Name Dose Route Start Last Admin Trade Name Freq PRN Reason Stop Dose Admin Fentanyl 25 mcg 07/02/19 09:39 07/04/19 01:17 Sublimaze SLOW IVP 25 mcg Q6H PRN Administration Pain Lactulose 20 gm 07/06/19 09:00 07/07/19 09:10 Lactulose PER TUBE 20 gm TID CHAPARRO Administration Lorazepam 0.5 mg 06/30/19 21:29 07/06/19 02:42 Ativan PER TUBE 0.5 mg HS PRN Administration Agitation Pantoprazole Sodium 40 mg 06/30/19 21:00 07/07/19 09:10 Protonix IVP 40 mg Q12HR CHAPARRO Administration Rifaximin 550 mg 07/06/19 09:00 07/07/19 09:10 Xifaxan PER TUBE 550 mg BID CHAPARRO Administration - Exam General Appearance: awake alert Neck: no JVD Heart: RRR, no murmur Respiratory: CTAB Gastrointestinal: soft, normal bowel sounds Extremities: 1+ LE edema Hosp A/P (1) Acute renal failure superimposed on stage 3 chronic kidney disease Code(s): N17.9 - ACUTE KIDNEY FAILURE, UNSPECIFIED; N18.3 - CHRONIC KIDNEY DISEASE, STAGE 3 (MODERATE) Status: Acute Qualifiers: Acute renal failure type: unspecified Qualified Code(s): N17.9 - Acute kidney failure, unspecified; N18.3 - Chronic kidney disease, stage 3 (moderate) (2) Coronary artery disease Code(s): I25.10 - ATHSCL HEART DISEASE OF [place] CORONARY ARTERY W/O ANG PCTRS Status: Chronic Qualifiers: Coronary Disease-Associated Artery/Lesion type: [place] artery [place] vs. transplanted heart: [place] heart Associated angina: without angina Qualified Code(s): I25.10 - Atherosclerotic heart disease of [place] coronary artery without angina pectoris (3) Diabetes type 2, controlled Code(s): E11.9 - TYPE 2 DIABETES MELLITUS WITHOUT COMPLICATIONS Status: Chronic Qualifiers: Diabetes mellitus buttermaker insulin use: without buttermaker use Diabetes mellitus complication status: with kidney complications Diabetes mellitus complication detail: with chronic kidney disease Chronic kidney disease stage : stage 3 (moderate) Qualified Code(s): E11.22 - Type 2 diabetes mellitus with diabetic chronic kidney disease; N18.3 - Chronic kidney disease, stage 3 ( moderate) (4) Hypertension Code(s): I10 - ESSENTIAL (PRIMARY) HYPERTENSION Status: Chronic Qualifiers: Hypertension type: essential hypertension (5) Liver cirrhosis Code(s): K74.60 - UNSPECIFIED CIRRHOSIS OF LIVER Status: Chronic Qualifiers: Ascites presence: unspecified - Plan cont HD accu/ss/etc cont xifaxin NG out- thickened liquids DC planning, needs HD outpt arranged
[2019-07-07 09:33] LABS: HBSAB Concentration 171.62 mIU/mL; Hep B Surf AB Reactive (NonReactive)
--- NOTE | 2019-07-07 10:53 | PRG ---
DATE OF SERVICE: 07/07/2019 SERVICE: Nephrology. SUBJECTIVE: A 79-year-old female, seen in followup for acute renal failure, on hemodialysis. The patient is felt to have acute renal failure from hepatorenal syndrome. She also had generalized anasarca. Clinically, improved. Still anuric. OBJECTIVE: VITAL SIGNS: Temperature 98.2, pulse 70, respiratory rate 18, SpO2 of 100% on 2 L nasal cannula, blood pressure is 147/55. GENERAL: Chronically ill-looking elderly, in no obvious distress. Afebrile. Icteric. Acyanotic. HEENT: Normocephalic, atraumatic. CARDIOVASCULAR: Regular rhythm and rate. Normal heart sounds 1 and 2. RESPIRATORY: Fair air entry bilaterally with bibasilar crackles and few scattered rhonchi. Work of breathing is not increased. GI: Full, soft, nondistended with normal bowel sounds. EXTREMITIES: Trace to mild bilateral thigh edema. Edema of the trunk as well as abdominal and chest wall were also noted. ENGINEERING ILLUSTRATOR: Conscious, alert, oriented x2 at least. Moves all extremities, but weakly. DIAGNOSTIC DATA: CBC showed WBC count of 5.6, hemoglobin of 9.3, platelets of 27. Coagulation panel showed PT of 17.6 and INR 1.4. CMP showed sodium 140, potassium 4.5, chloride 101, CO2 of 29, BUN 17, creatinine 2.29, glucose 74, calcium 8.3, total bilirubin 4.6, AST 18, ALT 9, alkaline phosphatase 91, total protein 6.8, albumin 4.0. ASSESSMENT: 1. Acute renal failure, requiring hemodialysis. 2. Presumed hepatorenal syndrome. 3. Chronic kidney disease, stage 3 to 4. 4. Decompensated liver cirrhosis with generalized anasarca. 5. Volume overload/anasarca. 6. Coagulopathy. 7. Pancytopenia. PLAN: 1. We will get hepatitis panel to facilitate outpatient dialysis placement. 2. We will monitor the patient today to see if she will make some urine. 3. Continue current treatment. 4. Case Management consulted to help with arrangement of outpatient dialysis. 5. We will consult PT/OT for physical deconditioning. 6. Further treatment to follow depending on hospital course. The patient can be discharged once outpatient dialysis is arranged. Job ID: [id number]
[2019-07-07] MEDS ORDERED: Phytonadione 10 MG/ML AMP PO SCH (13:00)
[2019-07-07] MEDS: Phytonadione 10 MG/ML AMP PO SCH (14:10)
--- NOTE | 2019-07-07 16:01 | PDOC.PALPN ---
Palliative Progress Note - Subjective Awake, alert. Some difficluity swallowing. Able to ambulate short distance with walker and assistance but states significant weakness. Son at bedside. - Objective Vital Signs: Vital Signs - Most Recent Temp Pulse Resp BP Pulse Ox 98.4 F 75 18 163/74 H 100 07/07/19 15:57 07/07/19 15:57 07/07/19 15:57 07/07/19 15:57 07/07/19 15:57 - Physical Exam Constitutional: NAD, ill appearing HEENT: EOMI, moist MMs Respiratory: clear to auscultation bilateral, no wheezing, unlabored breathing Cardiovascular: RRR Gastrointestinal: soft, non-tender, positive bowel sounds Musculoskeletal: no cyanosis, no clubbing, muscle wasting Neurology: moves all 4 limbs Skin: bruising, fragile, friable Psychiatric: A&O x 3, normal affect, normal mood - Assessment (1) Psoriasis (a type of skin inflammation) Code(s): L40.9 - PSORIASIS, UNSPECIFIED Current Visit: Yes Status: Acute (2) Acute renal failure superimposed on stage 3 chronic kidney disease Code(s): N17.9 - ACUTE KIDNEY FAILURE, UNSPECIFIED; N18.3 - CHRONIC KIDNEY DISEASE, STAGE 3 (MODERATE) Current Visit: No Status: Acute Qualifiers: Acute renal failure type: unspecified Qualified Code(s): N17.9 - Acute kidney failure, unspecified; N18.3 - Chronic kidney disease, stage 3 (moderate) (3) Palliative care encounter Code(s): Z51.5 - ENCOUNTER FOR PALLIATIVE CARE Current Visit: No Status: Acute (4) Liver cirrhosis Code(s): K74.60 - UNSPECIFIED CIRRHOSIS OF LIVER Current Visit: No Status: Chronic Qualifiers: Ascites presence: unspecified (5) Physical deconditioning Code(s): R53.81 - OTHER MALAISE Current Visit: No Status: Chronic - Plan Plan: Visited with patient and son in relation to dialysis and their expectations. Discussed disease trajectory in relation to renal disease. Discussed rehab at a skilled facility versus going home. The son said he believes that gaining strength at a skilled facility while she starts outpatient dialysis is best, then return home when she has strength. The patient agrees, but are concerned the patient wants her to go home and is not open to a skilled facility. Revisited teaching from speech therapy to prevent aspiration. Patient goal is to return home, but when she is strong enough and at a reduced risk to fall. PC RN to follow 07/08 revisiting goals of care and OOHDNAR. Please see notes for palliative care RN in note section. [60] minutes spent on this encounter with >50% of the time in counseling and coordination of care. - ROS Constitutional: weakness ENT: dry mouth, difficulty swallowing Respiratory: other (negative for cough, shortness of breath) Gastrointestinal: other (negative for nausea, diarrhea) Genitourinary: other Musculoskeletal: other (denies pain) Neurological: weakness Skin: bruising
--- NOTE | 2019-07-07 22:21 | PRG ---
DATE OF SERVICE: 07/07/2019 REASON FOR CONSULTATION: Cirrhosis, acute renal failure with possible hepatorenal syndrome, dysphagia. SUBJECTIVE: At the time of the interview, the patient was sitting at bedside in a chair and was alert and oriented x3. There were no acute events or problems overnight per nursing staff or per patient. She had been started on a soft mechanical diet with thickened liquids and had been tolerating this diet decently well so far, but has had some episodes of coughing per patient's son. Currently, she is tolerating dialysis well. Otherwise, she denies any episodes of nausea, vomiting, fevers, chills, hematemesis, melena, or hematochezia. OBJECTIVE: VITAL SIGNS: Temperature 98.5, pulse 78, blood pressure 135/66, respiratory rate 20, saturating 98% on room air. GENERAL: The patient was sitting in a chair at bedside. Alert and oriented x3. CARDIOVASCULAR: Regular rate and rhythm. RESPIRATORY: Clear to auscultation bilaterally. ABDOMEN: Normoactive bowel sounds, soft. Moderate abdominal distention with thickening of the skin in the bilateral flanks secondary to anasarca. Nontender to palpation in all abdominal quadrants. EXTREMITIES: 1+/2+ bilateral lower extremity edema extending up to the knees. LABORATORY DATA: CBC with a white blood cell count of 5.6, hemoglobin 9.3, hematocrit 29.7, platelets 27. INR 1.4. Chemistry with a sodium of 140, potassium 4.5, chloride 101, CO2 of 29, BUN 17, creatinine 2.29, glucose 74, AST 18, ALT 9, alkaline phosphatase 91, total bilirubin 4.6. Calculated MELD score of 29. IMAGING DATA: No current GI imaging is available for review. 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 1. Hepatorenal syndrome/acute renal failure. The patient initially presented with worsening liver and renal function concerning for the presence of hepatorenal syndrome. Despite administration of albumin, octreotide, and midodrine, she did not have any significant improvement in either her liver or renal function. However, upon placing the patient on dialysis, she has had significant improvement in her liver function with a decrease in her MELD score from 37 to now 29. However, given her advanced age, history of recurrent urinary tract infections, and now renal failure, she is not currently a transplant candidate. Recommendations; agree with continuation of dialysis per Nephrology recommendations. 2. Cirrhosis. The patient is also presenting with a history of cirrhosis likely secondary to nonalcoholic steatohepatitis. Furthermore, her cirrhosis has been complicated by recurrent episodes of hepatic encephalopathy secondary to an existing splenocaval shunt seen on imaging in mid 2019. Currently with decompensated disease with a calculated MELD score of 29. However, her liver function is continuing to improve with decreased INR today when compared to previous. However, now that she has liver failure requiring dialysis in addition to significant derangements in her liver function, her overall prognosis is poor. Recommendations;. a. Would continue lactulose and rifaximin for hepatic encephalopathy and titrate to goal of achieving approximately 3 to 4 bowel movements per day. b. We will continue current dialysis management and consider discharging the patient to a skilled rehab center prior to discharge to home. c. Would continue to avoid any potential hepatotoxic medications. d. Would have the patient follow up in the GI Clinic within 2 to 3 weeks of discharge for further monitoring or once discharged from the rehab facility. 3. Dysphagia. Lastly, the patient is presenting with a long-term history of increased coughing/gagging episodes primarily with the consumption of solid foods that have been present prior to this admission. However, given her critical illness during the course of this admission and Internal Medicine supervision, she had a formal swallow study with modified barium swallow study during this admission showing evidence of penetration and aspiration consistent with oropharyngeal dysphagia. Given her critical illness and history of cirrhosis with ascites, placement of a percutaneous gastrostomy tube is ill-advised given her increased risk of infection. However, continued administration of food by mouth also carries with it a risk of aspiration and increased risk of infection. These options were discussed with the patient, the patient's , and family and at this time, they wish to hold on percutaneous gastrostomy tube placement with no significant plans in the future to proceed with this modality. I did discuss the risks of increased aspiration with the current dietary management and they are aware of the risks at this time. Recommendations;. a. Would continue soft mechanical diet with thickened liquids in light of patient's oropharyngeal dysphagia. b. Maintain strict aspiration precautions. c. PEG tube placement is ill-advised given the increased risk of infection in a cirrhotic patient with ascites. At this time, we have no further recommendations. We will follow peripherally while the patient remains inpatient. Please call with any additional questions. Job ID: [id number]
--- NOTE | 2019-07-08 11:17 | PDOC.HOSPP ---
- Subjective Encounter Date: 07/08/19 Encounter Time: 10:30 Subjective: is getting HD has itching over her skin no sob, responds to verbal questions well - Objective Vital Signs & Weight: Weight Admit Weight 189 lb 3.2 oz Weight 181 lb 3.52 oz Most Recent Monitor Data Heart Rate from ECG 66 NIBP 139/54 NIBP BP-Mean 82 Respiration from ECG 2 SpO2 98 I&O: 07/07/19 07/08/19 07/09/19 06:59 06:59 06:59 Intake Total 30 Balance 30 Result Diagrams: 07/07/19 06:10 07/07/19 06:10 Additional Labs: Accuchecks 07/08/19 07/07/19 07/07/19 06:46 19:24 15:59 POC Glucose 90 178 H 148 H 07/07/19 10:43 POC Glucose 88 Hospitalist ROS - Medication Medications: Active Medications Generic Name Dose Route Start Last Admin Trade Name Freq PRN Reason Stop Dose Admin Fentanyl 25 mcg 07/02/19 09:39 07/04/19 01:17 Sublimaze SLOW IVP 25 mcg Q6H PRN Administration Pain Lactulose 20 gm 07/06/19 09:00 07/07/19 22:00 Lactulose PER TUBE Not Given TID CHAPARRO Lorazepam 0.5 mg 06/30/19 21:29 07/06/19 02:42 Ativan PER TUBE 0.5 mg HS PRN Administration Agitation Pantoprazole Sodium 40 mg 06/30/19 21:00 07/07/19 21:59 Protonix IVP 40 mg Q12HR CHAPARRO Administration Rifaximin 550 mg 07/06/19 09:00 07/07/19 21:59 Xifaxan PER TUBE 550 mg BID CHAPARRO Administration - Exam General Appearance: ill appearing Eye: PERRL, scleral icterus ENT: no oropharyngeal lesions, dry oral mucosa Neck: supple, no JVD Heart: RRR, no murmur Respiratory: no wheezes, no rales, rhonchi Gastrointestinal: soft, non-tender, normal bowel sounds Extremities: no cyanosis, 1+ LE edema Extremities - other findings: right UE edema++, LE thigh areas edema+ Neurological: cranial nerve grossly intact, no focal deficits Hosp A/P (1) Acute renal failure superimposed on stage 3 chronic kidney disease Code(s): N17.9 - ACUTE KIDNEY FAILURE, UNSPECIFIED; N18.3 - CHRONIC KIDNEY DISEASE, STAGE 3 (MODERATE) Status: Acute Qualifiers: Acute renal failure type: unspecified Qualified Code(s): N17.9 - Acute kidney failure, unspecified; N18.3 - Chronic kidney disease, stage 3 (moderate) (2) Cirrhosis of liver Code(s): K74.60 - UNSPECIFIED CIRRHOSIS OF LIVER Status: Chronic Plan: non alcoholic steatohepatitis with cirrhosis (3) Pancytopenia Code(s): D61.818 - OTHER PANCYTOPENIA Status: Acute (4) Thrombocytopenia Code(s): D69.6 - THROMBOCYTOPENIA, UNSPECIFIED Status: Chronic (5) Hepatic encephalopathy Code(s): K72.90 - HEPATIC FAILURE, UNSPECIFIED WITHOUT COMA Status: Resolved (6) Coronary artery disease Code(s): I25.10 - ATHSCL HEART DISEASE OF [place] CORONARY ARTERY W/O ANG PCTRS Status: Chronic Qualifiers: Coronary Disease-Associated Artery/Lesion type: [place] artery [place] vs. transplanted heart: [place] heart Associated angina: without angina Qualified Code(s): I25.10 - Atherosclerotic heart disease of [place] coronary artery without angina pectoris (7) Diabetes type 2, controlled Code(s): E11.9 - TYPE 2 DIABETES MELLITUS WITHOUT COMPLICATIONS Status: Chronic Qualifiers: Diabetes mellitus termite control servicer insulin use: without termite control servicer use Diabetes mellitus complication status: with kidney complications Diabetes mellitus complication detail: with chronic kidney disease Chronic kidney disease stage : stage 3 (moderate) Qualified Code(s): E11.22 - Type 2 diabetes mellitus with diabetic chronic kidney disease; N18.3 - Chronic kidney disease, stage 3 ( moderate) (8) Hypertension Code(s): I10 - ESSENTIAL (PRIMARY) HYPERTENSION Status: Chronic Qualifiers: Hypertension type: essential hypertension (9) Hypothyroidism Code(s): E03.9 - HYPOTHYROIDISM, UNSPECIFIED Status: Chronic Qualifiers: (10) Physical deconditioning Code(s): R53.81 - OTHER MALAISE Status: Chronic (11) Psoriasis Code(s): L40.9 - PSORIASIS, UNSPECIFIED Status: Chronic - Plan edema is coming down (had anasarca) will need outpt HD chair, swing bed/snf continue lactulose, rifaximin, nebs, protonix has recieved total of 5u prbc, 4 ffp's and 4 platelets this admission t.bili around 4.6, inr 1.4 has multiple echymosis due to pancytopenia PT to mobilize more Has diffuse psoriasis with extensive skin involvement. Prgonosis guarded, is DNAR
--- NOTE | 2019-07-08 12:41 | PRG ---
DATE OF SERVICE: 07/08/2019 SERVICE: Nephrology. SUBJECTIVE: A 79-year-old female seen in followup for acute on chronic renal failure due to hepatorenal syndrome, now on hemodialysis. The patient was seen in hemodialysis unit. Conversational and reports feeling better. Denied nausea, vomiting, or abdominal pain. She is generally weak. OBJECTIVE: VITAL SIGNS: Blood pressure 157/85, pulse 78, respiratory rate 18, and SpO2 of 95% on room air. GENERAL: Elderly female, in no obvious distress. Afebrile. Icteric. Chronically ill looking. HEENT: Normocephalic and atraumatic. Oral mucosa is moist. NECK: Supple. Resolving ecchymosis of the neck area noted. CARDIOVASCULAR: Regular rhythm and rate with normal heart sounds one and two. Systolic murmur noted. RESPIRATORY: Fair air entry bilaterally with bibasilar crackles. No rhonchi or use of accessory muscles appreciated. GI: Obese, soft with bilateral flank abdominal wall edema. MUSCULOSKELETAL AND EXTREMITIES: Trace leg edema. Mild bilateral thigh edema. Edema of the presacral and anterior chest wall area noted. SKIN: Yellow discoloration as well as scattered papules and plaques with scaly lesions noted. HR PAYROLL COORDINATOR: Conscious and alert. Oriented to person and place. Conversational. Moves all extremities, but weakly. DIAGNOSTIC DATA: No labs draw today. ASSESSMENT: 1. Acute on chronic renal failure: Due to hepatorenal syndrome. Now hemodialysis dependent. 2. Chronic kidney disease, stage 4. 3. Decompensated liver cirrhosis. 4. Coagulopathy due to liver cirrhosis. 5. Anasarca. 6. Hypotension, resolved. 7. Hypertension: Improved, control is acceptable. 8. Acute encephalopathy due to uremia and liver decompensation. Improved with hemodialysis. 9. Physical deconditioning. 10. Psoriasis with acute flare. PLAN: 1. We will continue hemodialysis Thursday, Thursday, and Thursday with UF as tolerated. We will monitor electrolytes and adjust treatment as needed. 2. Continue lactulose as well as rifaximin. 3. The patient is clinically stable and can be discharged from Nephrology point of view once placement can be concluded. We will however continue to follow the patient and provide hemodialytic treatment while hospitalized. Job ID: [id number]
[2019-07-08] MEDS: Pantoprazole 40 MG VIAL IVP SCH ×2 (13:11→20:55)
[2019-07-08] MEDS: Rifaximin 550 MG TAB PER TUBE SCH (13:12)
[2019-07-08] MEDS ORDERED: Calcium Carbonate 500 MG ChewTAB PO PRN (19:30)
[2019-07-08] MEDS ORDERED: Lorazepam 0.5 MG TAB PO PRN (19:30)
[2019-07-08] MEDS ORDERED: Acetaminophen 325 MG/10.15 ML UDCUP PO PRN (19:30)
[2019-07-08] MEDS: Rifaximin 550 MG TAB PO SCH (20:55)
[2019-07-09] MEDS: Rifaximin 550 MG TAB PO SCH ×2 (09:02→19:59)
[2019-07-09] MEDS: Pantoprazole 40 MG VIAL IVP SCH ×2 (09:02→20:00)
--- NOTE | 2019-07-09 11:06 | PDOC.HOSPP ---
- Subjective Encounter Date: 07/09/19 Encounter Time: 07:15 Subjective: awake, follows verbal stimuli, is not fully oriented at bedside she ate her breakfast - Objective Vital Signs & Weight: Vital Signs (12 hours) Temp Pulse Resp BP BP Pulse Ox 07/09/19 09:00 99 07/09/19 07:08 98 F 98 20 139/62 99 07/09/19 04:16 97.3 F L 73 17 139/67 97 07/08/19 23:52 97.8 F 77 17 163/68 H 97 Weight Admit Weight 189 lb 3.2 oz Weight 164 lb 6.4 oz Most Recent Monitor Data Heart Rate from ECG 66 NIBP 139/54 NIBP BP-Mean 82 Respiration from ECG 2 SpO2 98 I&O: 07/08/19 07/09/19 07/10/19 06:59 06:59 06:59 Intake Total 500 Output Total 4600 Balance -4100 Result Diagrams: 07/07/19 06:10 07/07/19 06:10 Additional Labs: Accuchecks 07/09/19 07/08/19 07/08/19 04:21 19:29 16:29 POC Glucose 139 H 157 H 112 H 07/08/19 07/08/19 13:59 12:03 POC Glucose 122 H 65 L Hospitalist ROS - Medication Medications: Active Medications Generic Name Dose Route Start Last Admin Trade Name Freq PRN Reason Stop Dose Admin Fentanyl 25 mcg 07/02/19 09:39 07/04/19 01:17 Sublimaze SLOW IVP 25 mcg Q6H PRN Administration Pain Lactulose 20 gm 07/08/19 21:00 07/09/19 09:03 Lactulose PO 20 gm TID CHAPARRO Administration Lorazepam 0.5 mg 07/08/19 19:30 07/09/19 03:30 Ativan PO 0.5 mg HS PRN Administration Agitation Mineral Oil/White Petrolatum 0 gm 07/06/19 01:19 07/09/19 09:04 Aquaphor 10 Gm TOP 1 applic PRN PRN Administration Dry Skin Pantoprazole Sodium 40 mg 06/30/19 21:00 07/09/19 09:02 Protonix IVP 40 mg Q12HR CHAPARRO Administration Rifaximin 550 mg 07/08/19 21:00 07/09/19 09:02 Xifaxan PO 550 mg BID CHAPARRO Administration - Exam General Appearance: awake alert, ill appearing Eye: PERRL, scleral icterus ENT: no oropharyngeal lesions, moist mucosa Neck: supple, no JVD Heart: RRR, no murmur Respiratory: no wheezes, no rales Gastrointestinal: soft, non-tender, normal bowel sounds Extremities: no cyanosis, 1+ LE edema Neurological: cranial nerve grossly intact, no focal deficits Hosp A/P (1) Acute renal failure superimposed on stage 3 chronic kidney disease Code(s): N17.9 - ACUTE KIDNEY FAILURE, UNSPECIFIED; N18.3 - CHRONIC KIDNEY DISEASE, STAGE 3 (MODERATE) Status: Acute Qualifiers: Acute renal failure type: unspecified Qualified Code(s): N17.9 - Acute kidney failure, unspecified; N18.3 - Chronic kidney disease, stage 3 (moderate) (2) Cirrhosis of liver Code(s): K74.60 - UNSPECIFIED CIRRHOSIS OF LIVER Status: Chronic (3) Pancytopenia Code(s): D61.818 - OTHER PANCYTOPENIA Status: Acute (4) Thrombocytopenia Code(s): D69.6 - THROMBOCYTOPENIA, UNSPECIFIED Status: Chronic (5) Hepatic encephalopathy Code(s): K72.90 - HEPATIC FAILURE, UNSPECIFIED WITHOUT COMA Status: Resolved (6) Coronary artery disease Code(s): I25.10 - ATHSCL HEART DISEASE OF [place] CORONARY ARTERY W/O ANG PCTRS Status: Chronic Qualifiers: Coronary Disease-Associated Artery/Lesion type: [place] artery [place] vs. transplanted heart: [place] heart Associated angina: without angina Qualified Code(s): I25.10 - Atherosclerotic heart disease of [place] coronary artery without angina pectoris (7) Diabetes type 2, controlled Code(s): E11.9 - TYPE 2 DIABETES MELLITUS WITHOUT COMPLICATIONS Status: Chronic Qualifiers: Diabetes mellitus medical terminologist insulin use: without medical terminologist use Diabetes mellitus complication status: with kidney complications Diabetes mellitus complication detail: with chronic kidney disease Chronic kidney disease stage : stage 3 (moderate) Qualified Code(s): E11.22 - Type 2 diabetes mellitus with diabetic chronic kidney disease; N18.3 - Chronic kidney disease, stage 3 ( moderate) (8) Hypertension Code(s): I10 - ESSENTIAL (PRIMARY) HYPERTENSION Status: Chronic Qualifiers: Hypertension type: essential hypertension (9) Hypothyroidism Code(s): E03.9 - HYPOTHYROIDISM, UNSPECIFIED Status: Chronic Qualifiers: (10) Physical deconditioning Code(s): R53.81 - OTHER MALAISE Status: Chronic (11) Psoriasis Code(s): L40.9 - PSORIASIS, UNSPECIFIED Status: Chronic - Plan edema is coming down (had anasarca) will need outpt HD chair, swing bed/snf continue lactulose, rifaximin, nebs, protonix has recieved total of 5u prbc, 4 ffp's and 4 platelets this admission t.bili around 4.6, inr 1.4 has multiple echymosis due to pancytopenia PT to mobilize more, amb around 18ft Has diffuse psoriasis with extensive skin involvement. Prognosis guarded, is DNAR
--- NOTE | 2019-07-09 11:38 | PRG ---
DATE OF SERVICE: 07/09/2019 SERVICE: Nephrology. SUBJECTIVE: A 79-year-old female with liver cirrhosis, CKD 3/4, seen in followup for acute on chronic renal failure due to hepatorenal syndrome, now hemodialysis dependent. Last hemodialysis was yesterday. The patient is awake, but seems confused and delirious today. She continues to take lactulose as well as rifaximin and had bowel motion earlier. No nausea or vomiting. OBJECTIVE: VITAL SIGNS: Temperature 98, pulse 98, respiratory rate 20, SpO2 of 99% on room air, blood pressure 139/62. GENERAL: Chronically ill-looking elderly female, in no obvious distress. Afebrile, icteric but acyanotic. HEENT: Normocephalic, atraumatic. Oral mucosa is moist. CARDIOVASCULAR: Regular rhythm and rate with normal heart sounds 1 and 2. Systolic murmur noted. RESPIRATORY: Fair air entry bilaterally with bibasilar crackles and some transmitted breath sounds, but no rhonchi. GI: Obese, soft, with abdominal wall edema. EXTREMITIES: No leg or hand edema appreciated. However, edema of the thigh and abdominal wall as well as the back noted. TUBE TEST TECHNICIAN: Conscious, awake, oriented to person. The patient; however, is confused. DIAGNOSTIC DATA: Ammonia level today is 37. No other blood work is available. ASSESSMENT: 1. Acute metabolic encephalopathy: Most likely due to hepatic encephalopathy. 2. Acute renal failure, now hemodialysis dependent. Due to hepatorenal syndrome. 3. Presumed hepatorenal syndrome. 4. Hypertension: Control is acceptable. 5. Decompensated liver cirrhosis with anasarca. 6. Generalized edema and anasarca: Improving with hemodialysis and ultrafiltration as tolerated. PLAN: 1. We will continue hemodialysis Thursday, Thursday, and Thursday with UF as tolerated. 2. We will monitor the patient over the weekend for urine output and recovery of renal function. 3. We will also get repeat CMP and CBC in view of acute confusion. 4. Further treatment as per primary attending. Job ID: [id number]
[2019-07-09 11:59] LABS: Hemoglobin 10.2 g/dL (12.0-16.0); Mean Corpuscular HGB CONC 30.8 g/dL (32.0-36.0); Mean Corpuscular Hemoglobin 30.2 pg (27.0-31.0); Mean Corpuscular Volume 98.1 fL (78.0-98.0); Mean Platelet Volume 9.7 fL (7.4-10.4); Platelet Count 32 thou/uL (130-400); RBC Distribution Width 23.3 % (11.5-14.5); Red Blood Cell (RBC) Count 3.37 mill/uL (4.20-5.40)
[2019-07-09 12:17] LABS: ALT (SGPT) 10 U/L (8-55); AST (SGOT) 21 U/L (5-34); Albumin 4.1 g/dL (3.4-4.8); Alkaline Phosphatase 108 U/L (40-110); Anion Gap 16 mmol/L (10-20); BUN (Urea Nitrogen) 20 mg/dL (9.8-20.1); Bilirubin, Total 5.1 mg/dL (0.2-1.2); Calc. Creatinine Clearance 19 mL/min (70-130); Calcium 8.8 mg/dL (7.8-10.44); Carbon Dioxide 27 mmol/L (23-31); Chloride 101 mmol/L (98-107); Estimated GFR-MDRD 16; Globulin 2.9 g/dL (2.4-3.5); Glucose 119 mg/dL (83-110); Potassium 4.2 mmol/L (3.5-5.1); Sodium 140 mmol/L (136-145)
--- NOTE | 2019-07-09 15:11 | EKG ---
Test Reason : Blood Pressure : / mmHG Vent. Rate : 059 BPM Atrial Rate : 058 BPM P-R Int : 000 ms QRS Dur : 112 ms QT Int : 538 ms P-R-T Axes : 000 066 -69 degrees QTc Int : 532 ms Junctional rhythm Low voltage QRS Cannot rule out Anterior infarct , age undetermined Prolonged QT Abnormal ECG Confirmed by PETERSON JOSE M.D. ([id number]), video editor RAAD OLIVARES ([id number]) on 07/09/2019 3:10:59 PM Referred By: Confirmed By:PETERSON JOSE M.D.
[2019-07-10 04:29] LABS: Hemoglobin 9.7 g/dL (12.0-16.0); Mean Corpuscular HGB CONC 30.4 g/dL (32.0-36.0); Mean Corpuscular Volume 98.7 fL (78.0-98.0); Mean Platelet Volume 9.3 fL (7.4-10.4); Platelet Count 35 thou/uL (130-400); Red Blood Cell (RBC) Count 3.22 mill/uL (4.20-5.40); White Blood Cell (WBC) Count 5.2 thou/uL (4.8-10.8)
[2019-07-10 04:47] LABS: ALT (SGPT) 9 U/L (8-55); AST (SGOT) 22 U/L (5-34); Albumin 3.8 g/dL (3.4-4.8); Alkaline Phosphatase 113 U/L (40-110); Anion Gap 14 mmol/L (10-20); BUN (Urea Nitrogen) 29 mg/dL (9.8-20.1); Calc. Creatinine Clearance 16 mL/min (70-130); Calcium 8.6 mg/dL (7.8-10.44); Carbon Dioxide 27 mmol/L (23-31); Chloride 103 mmol/L (98-107); Estimated GFR-MDRD 13; Globulin 2.8 g/dL (2.4-3.5); Glucose 102 mg/dL (83-110); Protein, Total 6.6 g/dL (6.0-8.3); Sodium 140 mmol/L (136-145)
[2019-07-10] MEDS: Rifaximin 550 MG TAB PO SCH ×2 (09:46→20:04)
--- NOTE | 2019-07-10 11:05 | PDOC.HOSPP ---
- Subjective Encounter Date: 07/10/19 Encounter Time: 08:15 Subjective: awake, not fully oriented is not eating much no sob - Objective Vital Signs & Weight: Vital Signs (12 hours) Temp Pulse Resp BP BP Pulse Ox 07/10/19 08:00 100 07/10/19 07:20 98.1 F 68 18 132/48 L 100 07/10/19 04:29 97.9 F 74 18 149/62 H 100 07/10/19 00:00 98.2 F 81 20 131/53 L 100 Weight Admit Weight 189 lb 3.2 oz Weight 163 lb 3.2 oz Most Recent Monitor Data Heart Rate from ECG 66 NIBP 139/54 NIBP BP-Mean 82 Respiration from ECG 2 SpO2 98 I&O: 07/09/19 07/10/19 07/11/19 06:59 06:59 06:59 Intake Total 500 450 100 Output Total 4600 Balance -4100 450 100 Result Diagrams: 07/10/19 04:05 07/10/19 04:05 Additional Labs: Accuchecks 07/10/19 07/10/19 07/09/19 05:55 05:19 19:46 POC Glucose 93 89 154 H 07/09/19 07/09/19 15:46 11:45 POC Glucose 131 H 113 H Hospitalist ROS - Medication Medications: Active Medications Generic Name Dose Route Start Last Admin Trade Name Freq PRN Reason Stop Dose Admin Albuterol/Ipratropium 3 ml 06/28/19 12:59 07/09/19 21:46 Duoneb NEB 3 ml Q6H PRN Administration SOB &/or Wheezing Fentanyl 25 mcg 07/02/19 09:39 07/04/19 01:17 Sublimaze SLOW IVP 25 mcg Q6H PRN Administration Pain Lactulose 20 gm 07/08/19 21:00 07/10/19 09:45 Lactulose PO 20 gm TID CHAPARRO Administration Lorazepam 0.5 mg 07/08/19 19:30 07/09/19 03:30 Ativan PO 0.5 mg HS PRN Administration Agitation Mineral Oil/White Petrolatum 0 gm 07/06/19 01:19 07/09/19 09:04 Aquaphor 10 Gm TOP 1 applic PRN PRN Administration Dry Skin Pantoprazole Sodium 40 mg 07/10/19 09:00 07/10/19 09:45 Protonix PO 40 mg BID CHAPARRO Administration Rifaximin 550 mg 07/08/19 21:00 07/10/19 09:46 Xifaxan PO 550 mg BID CHAPARRO Administration - Exam General Appearance: awake alert, ill appearing Eye: PERRL, scleral icterus ENT: no oropharyngeal lesions, moist mucosa Neck: supple, symmetric Heart: RRR, no murmur Respiratory: no wheezes, no rales Gastrointestinal: soft, non-tender, normal bowel sounds Extremities: no cyanosis, 1+ LE edema Neurological: cranial nerve grossly intact, no focal deficits Hosp A/P (1) Acute renal failure superimposed on stage 3 chronic kidney disease Code(s): N17.9 - ACUTE KIDNEY FAILURE, UNSPECIFIED; N18.3 - CHRONIC KIDNEY DISEASE, STAGE 3 (MODERATE) Status: Acute Qualifiers: Acute renal failure type: unspecified Qualified Code(s): N17.9 - Acute kidney failure, unspecified; N18.3 - Chronic kidney disease, stage 3 (moderate) (2) Cirrhosis of liver Code(s): K74.60 - UNSPECIFIED CIRRHOSIS OF LIVER Status: Chronic (3) Pancytopenia Code(s): D61.818 - OTHER PANCYTOPENIA Status: Acute (4) Thrombocytopenia Code(s): D69.6 - THROMBOCYTOPENIA, UNSPECIFIED Status: Chronic (5) Hepatic encephalopathy Code(s): K72.90 - HEPATIC FAILURE, UNSPECIFIED WITHOUT COMA Status: Acute (6) Coronary artery disease Code(s): I25.10 - ATHSCL HEART DISEASE OF [place] CORONARY ARTERY W/O ANG PCTRS Status: Chronic Qualifiers: Coronary Disease-Associated Artery/Lesion type: [place] artery [place] vs. transplanted heart: [place] heart Associated angina: without angina Qualified Code(s): I25.10 - Atherosclerotic heart disease of [place] coronary artery without angina pectoris (7) Diabetes type 2, controlled Code(s): E11.9 - TYPE 2 DIABETES MELLITUS WITHOUT COMPLICATIONS Status: Chronic Qualifiers: Diabetes mellitus mcc insulin use: without long goods drier use Diabetes mellitus complication status: with kidney complications Diabetes mellitus complication detail: with chronic kidney disease Chronic kidney disease stage : stage 3 (moderate) Qualified Code(s): E11.22 - Type 2 diabetes mellitus with diabetic chronic kidney disease; N18.3 - Chronic kidney disease, stage 3 ( moderate) (8) Hypertension Code(s): I10 - ESSENTIAL (PRIMARY) HYPERTENSION Status: Chronic Qualifiers: Hypertension type: essential hypertension (9) Hypothyroidism Code(s): E03.9 - HYPOTHYROIDISM, UNSPECIFIED Status: Chronic Qualifiers: (10) Physical deconditioning Code(s): R53.81 - OTHER MALAISE Status: Chronic (11) Psoriasis Code(s): L40.9 - PSORIASIS, UNSPECIFIED Status: Chronic - Plan edema is coming down (had anasarca) will need outpt HD chair, swing bed/snf continue lactulose, rifaximin, nebs, protonix has recieved total of 5u prbc, 4 ffp's and 4 platelets this admission t.bili around 4.6, inr 1.4 has multiple echymosis due to pancytopenia PT to mobilize more, amb around 18ft Has diffuse psoriasis with extensive skin involvement. Prognosis guarded, is DNAR severe deconditioning
--- NOTE | 2019-07-10 11:42 | PRG ---
DATE OF SERVICE: 07/10/2019 SERVICE: Nephrology. SUBJECTIVE: A 79-year-old female seen in followup for acute renal failure, requiring hemodialysis. The patient reportedly was admitted last night, finally slept. She is sleepy, but seems oriented this morning. Still no urine. Last hemodialysis was on July 08, 2019. OBJECTIVE: VITAL SIGNS: Temperature 98.1, pulse 68, respiratory rate 18, SpO2 of 100% on 2 L nasal cannula, and blood pressure is 132/48. GENERAL: Elderly female, in no obvious distress. The patient is sleeping, but arousable. HEENT: Normocephalic and atraumatic. Oral mucosa is moist. NECK: Supple with no JVD. CARDIOVASCULAR: Regular rhythm and rate with normal heart sounds. Systolic murmur noted. RESPIRATORY: Fair air entry bilaterally with few bibasilar crackles. Work of breathing; however, is not increased and there is no rhonchi or use of accessory muscles. GI: Full, soft, nontender, and nondistended with normal bowel sounds. EXTREMITIES: Legs are grossly normal with no edema. Mild abdominal wall and chest edema noted. SECRETARY ADMINISTRATIVE ASSISTANT: The patient is sleeping. She is; however, arousable. She was able to tell me her name and obeys command. DIAGNOSTIC DATA: CBC showed WBC count of 5.3, hemoglobin of 9.7, MCV of 98.7, and platelets of 35. BMP showed sodium 140, potassium 4.0, chloride 103, CO2 of 27, BUN 29, creatinine 3.42, glucose 102, calcium 8.6, total bilirubin 4.0, AST 22, ALT 9, alkaline phosphatase is 113, total protein 6.6, albumin 3.8, and globulin 2.8. ASSESSMENT: 1. Acute encephalopathy: Etiology is unclear. The patient does not make urine to suggest urinary tract infection. Liver function tests as well as ammonia are acceptable, if anything better. The patient is afebrile and white count is normal, making infectious etiology unlikely. 2. Acute renal failure, requiring hemodialysis. Deemed to be due to hepatorenal syndrome. 3. Presumed hepatorenal syndrome. 4. Decompensated liver cirrhosis with anasarca. 5. Anasarca: Improved with hemodialysis with UF as tolerated. PLAN: Continue supportive care. We will continue hemodialysis using Thursday, Thursday, and Thursday schedule. There is no indication for urgent dialysis today. Volume status is acceptable and electrolytes are within normal limits. Further treatment as per primary attending. I did discuss the patient's condition as well as care plan with the patient's spouse and children at the bedside and they verbalized understanding. Job ID: [id number]
[2019-07-11 05:07] LABS: INR-International Normal Ratio 1.6; Prothrombin Time 19.1 SEC (12.0-14.7)
[2019-07-11 05:53] LABS: ALT (SGPT) 12 U/L (8-55); AST (SGOT) 30 U/L (5-34); Albumin 3.6 g/dL (3.4-4.8); Alkaline Phosphatase 138 U/L (40-110); Anion Gap 15 mmol/L (10-20); BUN (Urea Nitrogen) 41 mg/dL (9.8-20.1); Bilirubin, Total 3.3 mg/dL (0.2-1.2); Calc. Creatinine Clearance 13 mL/min (70-130); Calcium 8.4 mg/dL (7.8-10.44); Carbon Dioxide 28 mmol/L (23-31); Chloride 105 mmol/L (98-107); Estimated GFR-MDRD 11; Glucose 97 mg/dL (83-110); Potassium 4.6 mmol/L (3.5-5.1); Protein, Total 6.6 g/dL (6.0-8.3); Sodium 143 mmol/L (136-145)
--- NOTE | 2019-07-11 08:55 | PRG ---
DATE OF SERVICE: 07/11/2019 SERVICE: Nephrology. SUBJECTIVE: A 79-year-old female with acute renal failure due to hepatorenal syndrome, now on hemodialysis, seen in followup for end-stage renal disease management. The patient reportedly made some urine, but BUN and creatinine continued to trend up between hemodialysis, hence no significant renal recovery as yet. Acute mental status change in the last 2 days has improved and patient seems appropriate and conversational today. Denied nausea, vomiting, chest pain, or abdominal pain. OBJECTIVE: VITAL SIGNS: Temperature 97.9, pulse 103, respiratory rate 18, SpO2 100 on room air, blood pressure is 122/68. GENERAL: Chronically ill-looking elderly female, in no obvious distress. Afebrile and acyanotic. The patient, however, is icteric. HEENT: Normocephalic, atraumatic. Oral mucosa is moist. CARDIOVASCULAR: Regular rhythm and rate with normal heart sounds one and two. Systolic murmur noted. RESPIRATORY: Fair air entry bilaterally with few bibasilar crackles, but no rhonchi or use of accessory muscles. GI: Full, soft, nontender, nondistended with normal bowel sounds. Bilateral flank edema noted. EXTREMITIES: Trace bilateral thigh edema noted, but no leg edema. AIRCRAFT INSTRUMENT MECHANIC: Conscious and alert, oriented to person and place. Cranial nerves 2 through 12 are grossly intact. DIAGNOSTIC DATA: CMP today showed sodium 143, potassium 4.6, chloride 105, CO2 of 23, BUN 41, creatinine 3.97, glucose 97, calcium 8.4, total bilirubin 3.3, AST 30, ALT 12, alkaline phosphatase 138, total protein 6.6, albumin 3.6, globulin 3.0. Coagulation panel showed PT 19.1, INR 1.6. ASSESSMENT: 1. Acute renal failure: Due to hepatorenal syndrome. Still dialysis dependent. There is no significant renal recovery. BUN and creatinine continued to trend up between hemodialysis and the patient makes little or no urine. 2. Chronic kidney disease due to hepatorenal syndrome. 3. Hypertension: Control is acceptable. 4. Decompensated liver cirrhosis: The patient is deemed not a candidate for transplant. 5. Psoriasis with acute generalized flare up. 6. Acute encephalopathy due to hepatic and uremic toxins. 7. Hyperbilirubinemia. Improved. 8. Coagulopathy due to liver cirrhosis. 9. Anemia due to gastrointestinal bleeding as well as chronic kidney disease. 10. Anasarca: Improved with hemodialysis with UF. PLAN: 1. We will continue hemodialysis with UF as tolerated. 2. We will dialyze the patient today for 4 hours with 2K bath and UF as tolerated. 3. The patient can be discharged once outpatient hemodialysis is arranged for her to continue outpatient treatments. Further treatment to follow depending on hospital course. Discharge as per primary attending. Job ID: [id number]
[2019-07-11] MEDS: Rifaximin 550 MG TAB PO SCH ×2 (12:34→20:47)
[2019-07-11 12:51] VITALS: BMI 26.9
--- NOTE | 2019-07-11 13:10 | PDOC.HOSPP ---
- Subjective Encounter Date: 07/11/19 Encounter Time: 08:45 Subjective: awake, getting HD no sob or chest pain - Objective Vital Signs & Weight: Vital Signs (12 hours) Temp Pulse Resp BP BP Pulse Ox 07/11/19 12:22 97.4 F L 67 18 131/67 99 07/11/19 07:17 100 07/11/19 07:12 97.9 F 103 H 18 122/68 100 07/11/19 03:35 97.7 F 104 H 20 133/69 100 Weight Admit Weight 189 lb 3.2 oz Weight 161 lb 11.2 oz Most Recent Monitor Data Heart Rate from ECG 66 NIBP 139/54 NIBP BP-Mean 82 Respiration from ECG 2 SpO2 98 I&O: 07/10/19 07/11/19 07/12/19 06:59 06:59 06:59 Intake Total 450 370 Balance 450 370 Result Diagrams: 07/10/19 04:05 07/11/19 04:24 Additional Labs: Accuchecks 07/11/19 07/10/19 07/10/19 03:44 19:24 15:39 POC Glucose 110 186 H 131 H 07/10/19 11:41 POC Glucose 106 Hospitalist ROS - Medication Medications: Active Medications Generic Name Dose Route Start Last Admin Trade Name Freq PRN Reason Stop Dose Admin Albuterol/Ipratropium 3 ml 06/28/19 12:59 07/09/19 21:46 Duoneb NEB 3 ml Q6H PRN Administration SOB &/or Wheezing Fentanyl 25 mcg 07/02/19 09:39 07/04/19 01:17 Sublimaze SLOW IVP 25 mcg Q6H PRN Administration Pain Lactulose 20 gm 07/08/19 21:00 07/11/19 09:33 Lactulose PO Not Given TID CHAPARRO Lorazepam 0.5 mg 07/08/19 19:30 07/09/19 03:30 Ativan PO 0.5 mg HS PRN Administration Agitation Mineral Oil/White Petrolatum 0 gm 07/06/19 01:19 07/09/19 09:04 Aquaphor 10 Gm TOP 1 applic PRN PRN Administration Dry Skin Rifaximin 550 mg 07/08/19 21:00 07/11/19 12:34 Xifaxan PO 550 mg BID CHAPARRO Administration - Exam General Appearance: awake alert Eye: PERRL, scleral icterus ENT: no oropharyngeal lesions, dry oral mucosa Neck: supple, no JVD Heart: RRR, no murmur Respiratory: no wheezes, no rales Gastrointestinal: soft, non-tender, non-distended, normal bowel sounds Extremities: no cyanosis, 1+ LE edema Neurological: cranial nerve grossly intact, no focal deficits Hosp A/P (1) Acute renal failure superimposed on stage 3 chronic kidney disease Code(s): N17.9 - ACUTE KIDNEY FAILURE, UNSPECIFIED; N18.3 - CHRONIC KIDNEY DISEASE, STAGE 3 (MODERATE) Status: Acute Qualifiers: Acute renal failure type: unspecified Qualified Code(s): N17.9 - Acute kidney failure, unspecified; N18.3 - Chronic kidney disease, stage 3 (moderate) (2) Cirrhosis of liver Code(s): K74.60 - UNSPECIFIED CIRRHOSIS OF LIVER Status: Chronic (3) Pancytopenia Code(s): D61.818 - OTHER PANCYTOPENIA Status: Acute (4) Thrombocytopenia Code(s): D69.6 - THROMBOCYTOPENIA, UNSPECIFIED Status: Chronic (5) Hepatic encephalopathy Code(s): K72.90 - HEPATIC FAILURE, UNSPECIFIED WITHOUT COMA Status: Acute (6) Coronary artery disease Code(s): I25.10 - ATHSCL HEART DISEASE OF [place] CORONARY ARTERY W/O ANG PCTRS Status: Chronic Qualifiers: Coronary Disease-Associated Artery/Lesion type: [place] artery [place] vs. transplanted heart: [place] heart Associated angina: without angina Qualified Code(s): I25.10 - Atherosclerotic heart disease of [place] coronary artery without angina pectoris (7) Diabetes type 2, controlled Code(s): E11.9 - TYPE 2 DIABETES MELLITUS WITHOUT COMPLICATIONS Status: Chronic Qualifiers: Diabetes mellitus watermelon harvesting supervisor insulin use: without fpc use Diabetes mellitus complication status: with kidney complications Diabetes mellitus complication detail: with chronic kidney disease Chronic kidney disease stage : stage 3 (moderate) Qualified Code(s): E11.22 - Type 2 diabetes mellitus with diabetic chronic kidney disease; N18.3 - Chronic kidney disease, stage 3 ( moderate) (8) Hypertension Code(s): I10 - ESSENTIAL (PRIMARY) HYPERTENSION Status: Chronic Qualifiers: Hypertension type: essential hypertension (9) Hypothyroidism Code(s): E03.9 - HYPOTHYROIDISM, UNSPECIFIED Status: Chronic Qualifiers: (10) Physical deconditioning Code(s): R53.81 - OTHER MALAISE Status: Chronic (11) Psoriasis Code(s): L40.9 - PSORIASIS, UNSPECIFIED Status: Chronic - Plan edema is coming down (had anasarca) will need outpt HD chair, swing bed/snf continue lactulose, rifaximin, nebs, protonix, coreg, synthroid has recieved total of 5u prbc, 4 ffp's and 4 platelets this admission t.bili around 4.6, inr 1.4 has multiple echymosis due to pancytopenia PT to mobilize more Has diffuse psoriasis with extensive skin involvement. Prognosis guarded, is DNAR severe deconditioning
[2019-07-11] MEDS: Carvedilol 6.25 MG TAB PO SCH (20:45)
[2019-07-11] MEDS: Pantoprazole 40 MG GRANULES PACKET PO SCH (20:46)
[2019-07-11] MEDS ORDERED: PARoxetine 20 MG TAB PO SCH (21:00)
[2019-07-12] MEDS ORDERED: Levothyroxine Sodium 88 MCG TAB PO SCH (06:00)
[2019-07-12] MEDS: Carvedilol 6.25 MG TAB PO SCH (08:44)
[2019-07-12] MEDS: Rifaximin 550 MG TAB PO SCH (08:45)
[2019-07-12] MEDS: Pantoprazole 40 MG GRANULES PACKET PO SCH (08:45)
[2019-07-12] MEDS ORDERED: Ferrous Sulfate 325 MG TAB PO SCH (09:00)
--- NOTE | 2019-07-12 15:22 | PDOC.HOSPP ---
- Subjective Encounter Date: 07/12/19 Encounter Time: 08:15 Subjective: awake, ate her breakfast well today no sob, has cough at bedside d/w him about getting outpt appt to see independent video producer for Psoriasis in town. - Objective Vital Signs & Weight: Vital Signs (12 hours) Temp Pulse Resp BP BP BP Pulse Ox 07/12/19 12:30 97.7 F 71 20 112/52 L 94 L 07/12/19 08:44 105/54 L 07/12/19 08:00 94 L 07/12/19 07:49 98.1 F 98 20 118/67 94 L 07/12/19 05:04 97.9 F 94 20 112/57 L 97 Weight Admit Weight 189 lb 3.2 oz Weight 154 lb 12.232 oz Most Recent Monitor Data Heart Rate from ECG 66 NIBP 139/54 NIBP BP-Mean 82 Respiration from ECG 2 SpO2 98 I&O: 07/11/19 07/12/19 07/13/19 06:59 06:59 06:59 Intake Total 370 400 Output Total 1000 Balance 370 -600 Result Diagrams: 07/10/19 04:05 07/11/19 04:24 Hospitalist ROS - Medication Medications: Active Medications Generic Name Dose Route Start Last Admin Trade Name Freq PRN Reason Stop Dose Admin Albuterol/Ipratropium 3 ml 06/28/19 12:59 07/09/19 21:46 Duoneb NEB 3 ml Q6H PRN Administration SOB &/or Wheezing Carvedilol 6.25 mg 07/11/19 21:00 07/12/19 08:44 Coreg PO Not Given BID CHAPARRO Ferrous Sulfate 325 mg 07/12/19 09:00 07/12/19 08:45 Feosol PO 325 mg DAILY CHAPARRO Administration Lactulose 20 gm 07/08/19 21:00 07/12/19 08:45 Lactulose PO 20 gm TID CHAPARRO Administration Levothyroxine Sodium 88 mcg 07/12/19 06:00 07/12/19 05:19 Synthroid PO 88 mcg 0600 CHAPARRO Administration Lorazepam 0.5 mg 07/08/19 19:30 07/09/19 03:30 Ativan PO 0.5 mg HS PRN Administration Agitation Mineral Oil/White Petrolatum 0 gm 07/06/19 01:19 01/18/20 09:04 Aquaphor 10 Gm TOP 1 applic PRN PRN Administration Dry Skin Pantoprazole Sodium 40 mg 07/11/19 21:00 07/12/19 08:45 Protonix PO 40 mg BID CHAPARRO Administration Paroxetine HCl 10 mg 07/11/19 21:00 07/11/19 20:46 Paxil PO 10 mg HS CHAPARRO Administration Rifaximin 550 mg 07/08/19 21:00 07/12/19 08:45 Xifaxan PO 550 mg BID CHAPARRO Administration - Exam General Appearance: awake alert Eye: PERRL, scleral icterus ENT: no oropharyngeal lesions, moist mucosa Neck: supple, no JVD Heart: RRR, no murmur Respiratory: no wheezes, no rales, rhonchi Gastrointestinal: soft, non-tender, non-distended, normal bowel sounds Extremities: no cyanosis, no clubbing Neurological: cranial nerve grossly intact, no focal deficits Hosp A/P (1) Acute renal failure superimposed on stage 3 chronic kidney disease Code(s): N17.9 - ACUTE KIDNEY FAILURE, UNSPECIFIED; N18.3 - CHRONIC KIDNEY DISEASE, STAGE 3 (MODERATE) Status: Acute Qualifiers: Acute renal failure type: unspecified Qualified Code(s): N17.9 - Acute kidney failure, unspecified; N18.3 - Chronic kidney disease, stage 3 (moderate) (2) Cirrhosis of liver Code(s): K74.60 - UNSPECIFIED CIRRHOSIS OF LIVER Status: Chronic (3) Pancytopenia Code(s): D61.818 - OTHER PANCYTOPENIA Status: Acute (4) Thrombocytopenia Code(s): D69.6 - THROMBOCYTOPENIA, UNSPECIFIED Status: Chronic (5) Hepatic encephalopathy Code(s): K72.90 - HEPATIC FAILURE, UNSPECIFIED WITHOUT COMA Status: Acute (6) Coronary artery disease Code(s): I25.10 - ATHSCL HEART DISEASE OF [place] CORONARY ARTERY W/O ANG PCTRS Status: Chronic Qualifiers: Coronary Disease-Associated Artery/Lesion type: [place] artery [place] vs. transplanted heart: [place] heart Associated angina: without angina Qualified Code(s): I25.10 - Atherosclerotic heart disease of [place] coronary artery without angina pectoris (7) Diabetes type 2, controlled Code(s): E11.9 - TYPE 2 DIABETES MELLITUS WITHOUT COMPLICATIONS Status: Chronic Qualifiers: Diabetes mellitus custodial insulin use: without custodial use Diabetes mellitus complication status: with kidney complications Diabetes mellitus complication detail: with chronic kidney disease Chronic kidney disease stage : stage 3 (moderate) Qualified Code(s): E11.22 - Type 2 diabetes mellitus with diabetic chronic kidney disease; N18.3 - Chronic kidney disease, stage 3 ( moderate) (8) Hypertension Code(s): I10 - ESSENTIAL (PRIMARY) HYPERTENSION Status: Chronic Qualifiers: Hypertension type: essential hypertension (9) Hypothyroidism Code(s): E03.9 - HYPOTHYROIDISM, UNSPECIFIED Status: Chronic Qualifiers: (10) Physical deconditioning Code(s): R53.81 - OTHER MALAISE Status: Chronic (11) Psoriasis Code(s): L40.9 - PSORIASIS, UNSPECIFIED Status: Chronic - Plan edema is coming down (had anasarca) has been approved for [facility] and [facility] chair for HD. continue lactulose, rifaximin, nebs, protonix, coreg, synthroid has recieved total of 5u prbc, 4 ffp's and 4 platelets this admission t.bili around 4.6, inr 1.4 has multiple echymosis due to pancytopenia PT to mobilize more Has diffuse psoriasis with extensive skin involvement, for outpt f/u/ appointment with independent video producer. Prognosis guarded, is DNAR severe deconditioning
[2019-07-12 16:38] VITALS: BP 135/60; TEMP 97.5
--- NOTE | 2019-07-12 17:17 | DIS ---
DATE OF ADMISSION: 06/28/2019 DATE OF DISCHARGE: 07/12/2019 DISCHARGE DISPOSITION: [facility]. 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 PROCEDURES DONE DURING HOSPITALIZATION: Chest x-ray on the day of admission showed cardiomegaly. CT brain without contrast on admission showed no intracranial hemorrhage or fractures. Renal ultrasound done on 06/29/2019, showed no evidence of hydronephrosis. Placement of right femoral vein Trialysis catheter by Dr. Sepulveda on 06/29/2019 for dialysis. The patient had placement of right internal jugular cuffed tunneled hemodialysis catheter and left subclavian vein central line. This was done on 07/01/[address] Sepulveda. Abdominal ultrasound done on 07/02/2019 showed surgically absent gallbladder. Increased echogenicity of liver with lobulation of the hepatic margin to correlate for cirrhotic change. Hemoglobin and hematocrit were 9.7 and 32, platelet count was 35, white count of 5.2, MCV 98. Her hemoglobin on arrival was 6.2 g, hematocrit was 19 on arrival, platelet count had dropped down to 25 on the and at discharge is 35. INR on the day of admission 2.2 with PTT of 41. INR on the is 1.6, PT of 19.1 on the same day. Discharge BUN and creatinine are 41 and 3.9, serum bicarb 28, albumin is 3.6, total bilirubin 3.3, AST 30, ALT 12, alkaline phosphatase 138, had a total bilirubin peaked up to 7.0 mg/dL on the , ferritin 33.8, serum iron 84, TIBC 223, percent saturation 38. BNP was 1740. TSH 1.0. Admitting BUN and creatinine was 61 and 5.8 with potassium of 5.7, and serum bicarb of 14 on the day of admission. Hepatitis B surface antigen is nonreactive. Hep C antibody nonreactive. DISCHARGE MEDICATIONS: 1. Ferrous sulfate 325 mg p.o. daily. 2. Levothyroxine 88 mcg p.o. daily. 3. Paroxetine 10 mg p.o. at bedtime. 4. Coreg 6.25 mg p.o. twice daily. 5. DuoNeb q.6 hourly p.r.n. 6. Lactulose. 7. Rifaximin 550 mg p.o. twice daily. ALLERGIES: NAPROSYN, CEFTRIAXONE, TYLENOL, HYDROCODONE, AND MEROPENEM. DISCHARGE PLAN: The patient to follow up with Dr. Papo Moy in 4 weeks; Pedro Amezcua, her primary care physician in 1 week; Dr. Bryson Russo in 2 weeks. INPATIENT CONSULTS: 1. Dr. Russo for Nephrology. 2. Dr. Papo Moy/Dr. Henri Escobedo for Gastroenterology. 3. Dr. Molina for Pulmonary Critical Care. 4. Dr. Sepulveda for General surgery. BRIEF COURSE DURING HOSPITALIZATION: The patient initially was brought to emergency room on the after she had an episode of fall while she was trying to ambulate with a walker and was confused. Initial workup revealed acute renal failure with the end-stage liver disease and hepatorenal syndrome. Her initial hemoglobin was 6 g as well. The patient has had consultation with Dr. Russo for Nephrology and Dr. Papo Moy for Gastroenterology. She has had placement of a Trialysis catheter initially in her femoral vein and was initiated on dialysis. She was also given multiple units of blood products as mentioned above. Her overall prognosis was poor at the outset. The patient has done well with her hemodialysis regimens. The patient's initial weight on admission was 189 pounds with discharge weight of 154 pounds now. She had generalized anasarca, which is resolving with continuous dialysis after initiating dialysis. She has deconditioning and is being discharged to [facility] for further recuperation likely long-term care. Her overall prognosis is still guarded with 2 organ failures. She also has extensive psoriasis, for which she needs to see an outpatient concierge if she recovers while at the half-way. She needs to continue medications as advised. Please see a [id number] documentation for the day of discharge on [place]. A total of 35 minutes was spent on discharge plan. Job ID: [id number]
--- NOTE | 2019-07-12 17:23 | PRG ---
DATE OF SERVICE: 07/12/2019 SERVICE: Nephrology. SUBJECTIVE: A 79-year-old female seen in followup for acute renal failure, requiring hemodialysis. The patient is comfortable and cooperative today. She denied any discomfort. No new problem. Discharge today to longterm facility is planned. Last hemodialysis was yesterday, July 11, 2019. The patient reported making some urine, but review of I and O showed little or no urine still. OBJECTIVE: VITAL SIGNS: Temperature 98.1, pulse 98, respiratory rate 20, SpO2 of 94% on room air, blood pressure is 118/67. GENERAL: Elderly female, in no obvious distress. Chronically ill-looking. Afebrile. Icteric. HEENT: Normocephalic, atraumatic. Oral mucosa is moist. CARDIOVASCULAR: Regular rhythm and rate with normal heart sounds 1 and 2. Systolic murmur noted. RESPIRATORY: Fair air entry bilaterally with few bibasilar crackles posteriorly. Work of breathing is not increased and there is no use of accessory muscles. GASTROINTESTINAL: Obese and soft with mild bilateral flank wall edema. EXTREMITIES: Grossly normal looking with no obvious edema. SKIN: Scattered papules and plaques with scaly discoloration noted. CENTRAL NERVOUS SYSTEM: Conscious, alert, and oriented x3 with appropriate mental status. Cranial nerves 2 through 12 are grossly intact. ASSESSMENT: 1. Acute renal failure: Hemodialysis dependent. The patient is currently on hemodialysis Thursday, Thursday, and Thursday with last hemodialysis being yesterday, July 11. 2. Presumed hepatorenal syndrome. 3. Chronic kidney disease stage 4 with acute renal failure. 4. Decompensated liver cirrhosis. 5. Anasarca. 6. Acute toxic and metabolic encephalopathy due to hepatic failure and uremia, improved with hemodialysis. 7. Coagulopathy, improved. PLAN: The patient can be discharged from Nephrology point of view once outpatient hemodialysis is arranged. The patient is to continue hemodialysis as scheduled in the outpatient setting. We will follow the patient in the outpatient once discharged. Continue lactulose and rifaximin for hepatic failure. We will monitor for urine output. Job ID: [id number]
== END 2019-07-12 16:59 | DRG 871 ==
LOC: ERS 08:42 → IMCU/EMU 12:53 → T4-A 07-05 18:15
PROVIDERS: ADMIT Internal Medicine; ATTEND Internal Medicine
PROC: 30233N1 Transfusion of Nonautologous Red Blood Cells into Peripheral Vein, Percutaneous Approach (ICD-10-PCS; principal; 2019-06-28)
PROC: 0JH63XZ Insertion of Tunneled Vascular Access Device into Chest Subcutaneous Tissue and Fascia, Percutaneous Approach (ICD-10-PCS; 2019-07-01)
PROC: 02HV33Z Insertion of Infusion Device into Superior Vena Cava, Percutaneous Approach (ICD-10-PCS; 2019-07-01)
PROC: B518YZA Fluoroscopy of Superior Vena Cava using Other Contrast, Guidance (ICD-10-PCS; 2019-07-01)
PROC: 06HM33Z Insertion of Infusion Device into Right Femoral Vein, Percutaneous Approach (ICD-10-PCS; 2019-07-01)
PROC: 30233R1 Transfusion of Nonautologous Platelets into Peripheral Vein, Percutaneous Approach (ICD-10-PCS; 2019-07-02)
PROC: 5A1D70Z Performance of Urinary Filtration, Intermittent, Less than 6 Hours Per Day (ICD-10-PCS; 2019-07-02)
DX: A41.9 Sepsis, unspecified organism (principal); K76.7 Hepatorenal syndrome; G92 Toxic encephalopathy; I50.33 Acute on chronic diastolic (congestive) heart failure; N18.6 End stage renal disease; N17.9 Acute kidney failure, unspecified; E87.2 Acidosis; I13.0 Hypertensive heart and chronic kidney disease with heart failure and stage 1 through stage 4 chronic kidney disease, or unspecified chronic kidney disease; D61.818 Other pancytopenia; D68.9 Coagulation defect, unspecified; R65.20 Severe sepsis without septic shock; K72.90 Hepatic failure, unspecified without coma; K74.60 Unspecified cirrhosis of liver; K75.81 Nonalcoholic steatohepatitis (NASH); I25.10 Atherosclerotic heart disease of native coronary artery without angina pectoris; E03.9 Hypothyroidism, unspecified; L40.9 Psoriasis, unspecified; E87.5 Hyperkalemia; D69.6 Thrombocytopenia, unspecified; E11.22 Type 2 diabetes mellitus with diabetic chronic kidney disease; E66.01 Morbid (severe) obesity due to excess calories; E88.81 Metabolic syndrome and other insulin resistance; D64.9 Anemia, unspecified; T68.XXXA Hypothermia, initial encounter; Z51.5 Encounter for palliative care; E80.6 Other disorders of bilirubin metabolism; Z66 Do not resuscitate; Z90.710 Acquired absence of both cervix and uterus; Z95.1 Presence of aortocoronary bypass graft; Z88.1 Allergy status to other antibiotic agents; Z88.5 Allergy status to narcotic agent; Z88.8 Allergy status to other drugs, medicaments and biological substances; Z68.25 Body mass index [BMI] 25.0-25.9, adult
CPT/HCPCS: 36415; 36416; 36430; 70450; 71045; 74230; 76705; 76770; 80053; 80069; 80202; 82140; 82274; 82533; 82550; 82728; 83540; 83550; 83735; 83880; 84443; 84484; 85014; 85018; 85025; 85027; 85610; 85730; 86704; 86706; 86803; 86850; 86900; 86901; 87340; 90935; 93005; 93970; 94640; 96365; 96366; 96367; 96368; 96375; C1752; C1769; C9113; G0257; G0365; J1642; J1644; J1815; J1956; J2001; J2060; J2250; J2270; J2354; J3010; J3370; J3430; J3490; J7050; J7070; J7611; J7620; P9016; P9035; P9047; P9059; S0020

== ENCOUNTER 2019-11-12 15:54 | Inpatient (IN) | payer MEDICARE, OTHER ==
[2019-11-12 17:00] LABS: #Eosinphils 0.2 thou/uL (0.0-0.7); #Lymphocytes 0.7 thou/uL (1.20-3.40); #Monocytes 0.4 thou/uL (0.11-0.59); #Neutrophils 8.9 thou/uL (1.40-6.50); %Basophils 0.4 % (0.0-1.0); %Eosinophils 1.6 % (0.0-10.0); %Lymphocytes 7.1 % (21.0-51.0); %Monocytes 3.8 % (0.0-10.0); %Neutrophils 87.1 % (42.0-75.0); Hemoglobin 13.2 g/dL (12.0-16.0); Mean Corpuscular Hemoglobin 32.3 pg (27.0-31.0); Mean Corpuscular Volume 97.9 fL (78.0-98.0); Mean Platelet Volume 7.3 fL (7.4-10.4); Platelet Count 123 thou/uL (130-400); RBC Distribution Width 13.9 % (11.5-14.5); Red Blood Cell (RBC) Count 4.09 mill/uL (4.20-5.40); White Blood Cell (WBC) Count 10.2 thou/uL (4.8-10.8)
--- NOTE | 2019-11-12 17:02 | RAD ---
CHEST ONE VIEW: 11/12/19 HISTORY: Sepsis. COMPARISON: Radiograph 07/01/19. FINDINGS: A dialysis catheter is placed with the tip in the right atrium. Mild edema. Trace effusions. No pneum othorax. Multiple midline sternotomy wires. IMPRESSION: Low grade volume overload. POS: HOME
[2019-11-12] MEDS ORDERED: Vancomycin 1 GM/200 ML BAG ONE (17:11)
[2019-11-12 17:20] LABS: ALT (SGPT) 54 U/L (8-55); AST (SGOT) 108 U/L (5-34); Albumin 3.3 g/dL (3.4-4.8); Alkaline Phosphatase 192 U/L (40-110); Anion Gap 15 mmol/L (10-20); BUN (Urea Nitrogen) 34 mg/dL (9.8-20.1); Bilirubin, Total 0.9 mg/dL (0.2-1.2); Calc. Creatinine Clearance 0 mL/min (70-130); Calcium 8.3 mg/dL (7.8-10.44); Carbon Dioxide 26 mmol/L (23-31); Chloride 99 mmol/L (98-107); Estimated GFR-MDRD 17; Globulin 4.6 g/dL (2.4-3.5); Glucose 127 mg/dL (83-110); Protein, Total 7.9 g/dL (6.0-8.3); Sodium 136 mmol/L (136-145)
[2019-11-12 17:43] LABS: CKMB 1.2 ng/mL (0-6.6)
[2019-11-12] MEDS ORDERED: Ibuprofen 200 MG TAB ONE (18:52)
[2019-11-12 19:14] LABS: Bacteria/HPF 4+ HPF (None Seen); Bilirubin Negative (Negative); Blood, Urine Negative (Negative); Clarity Clear (Clear); Glucose, Urine (Dipstick) 50 mg/dL (Negative); Leukocyte 75 Leu/uL (Negative); Nitrite Negative (Negative); Protein, Urine (Dipstick) 50 mg/dL (Neg-Trace); RBC/HPF 0-3 HPF (0-3); Squamous Epithelial 0-3 HPF (0-3); Urobilinogen Normal mg/dL (Less than 2)
[2019-11-12] MEDS ORDERED: Levofloxacin 500 mg/D5W 100 ml Premix Bag ONE (19:33)
[2019-11-12] MEDS ORDERED: Ondansetron PF 4 MG/2 ML Vial IVP PRN (20:37)
[2019-11-12] MEDS ORDERED: HYDROcodone/Acetaminophen 5/325 mg Tablet PO PRN (20:37)
[2019-11-12] MEDS ORDERED: Acetaminophen 325 MG TAB PO PRN (20:37)
[2019-11-12] MEDS ORDERED: HumaLOG 300 UNITS/3 ML VIAL SC PRN (20:41)
[2019-11-12] MEDS ORDERED: Dextrose 5% in Water 1,000 ML IV PRN (20:41)
[2019-11-12] MEDS ORDERED: Dextrose 50% Abboject 50 ML SYRINGE SLOW IVP PRN (20:41)
[2019-11-12] MEDS ORDERED: Labetalol HCl 100 MG/20 ML VIAL SLOW IVP PRN (20:52)
[2019-11-12] MEDS ORDERED: Vancomycin Sliding Scale 1 EACH FS ONE (23:30)
[2019-11-12] MEDS ORDERED: Vancomycin HCl 750 MG in Sodium Chloride 0.9% 250 ML 250 ML IVPB SCH (23:30)
[2019-11-12] MEDS ORDERED: Vancomycin HCl 500 MG in Sodium Chloride 0.9% 100 ML IVPB SCH (23:30)
[2019-11-12] MEDS ORDERED: HOLD VANCOMYCIN FOR LEVEL >20 FS SCH (23:30)
[2019-11-12] MEDS ORDERED: Vancomycin 1 GM in Premix Bag 1 BAG IVPB SCH (23:30)
[2019-11-12] MEDS ORDERED: Vancomycin HCl 250 MG in Sodium Chloride 0.9% 100 ML IVPB SCH (23:30)
[2019-11-12] MEDS: Insulin Glargine 10 UNITS in Pre-Filled Syringe 1 EACH SC SCH (23:47)
[2019-11-12] MEDS: Carvedilol 6.25 MG TAB PO SCH (23:59)
[2019-11-12] MEDS: Famotidine/PF 20 mg/2ml Vial SLOW IVP SCH (23:59)
[2019-11-13] MEDS: Piperacillin/Tazobactam 2.25 GM in Sodium Chloride 0.9% 100 ML IVPB SCH ×3 (00:05→15:42)
--- NOTE | 2019-11-13 01:11 | HP ---
SOURCE OF THE HISTORY: The patient, history is less reliable as the patient is confused. CHIEF COMPLAINT: The patient was brought to the emergency department because of fever associated with nausea and vomiting. 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 Also has history of coronary artery disease for which the patient had coronary artery bypass grafting and has chronic diastolic heart failure and hypothyroidism. The patient was brought to the emergency department as the patient was found to be having fever, otherwise the patient is not able to provide history because of the confusional state currently. As per the ER documentation, the patient has been brought because of fever associated with nausea and vomiting. The patient clearly denies any complaints of vomiting currently and no recent history of diarrhea. Denies any complaints of chest pain or abdominal pain. The patient still makes scant amount of urine, but denies any history of dysuria or frequency lately. Subsequently, the patient had evaluation in the emergency department and the patient has tachycardia associated with fever for which sepsis protocol has been initiated and the patient had SARS COVID-2 PCR in the emergency department and the patient was placed on isolation. PAST MEDICAL HISTORY: Essential hypertension, diabetes mellitus, diabetic nephropathy, coronary artery disease, status post coronary artery bypass grafting, chronic diastolic heart failure, autoimmune cirrhosis of the liver, recurrent history of hepatic encephalopathy, hypothyroidism. PAST SURGICAL HISTORY: Coronary artery bypass grafting, hysterectomy, ankle surgery, cardiac ablation for unknown reason, liver biopsy. ALLERGIES: THE PATIENT IS ALLERGIC TO NAPROXEN, CEFTRIAXONE, ACETAMINOPHEN, HYDROCODONE, MEROPENEM. CURRENT MEDICATIONS: At home: 1. Spironolactone 50 mg orally once a day. 2. Levothyroxine 88 mcg orally once a day. 3. Levemir insulin 10 units subcutaneously once a day. 4. Ferrous sulfate 325 mg orally once a day. 5. Hydralazine 50 mg orally 3 times a day. 6. Amlodipine 10 mg orally once a day. 7. Aspirin 81 mg orally once a day. 8. Coreg 6.25 mg orally twice a day. 9. Lasix 40 mg orally twice a day. 10. Triamcinolone acetonide 0.1% 1 application topical 2 times a day. SOCIAL HISTORY: Currently the patient is confused and social history is not available, but according to the documentation in the past, the patient never had any history of tobacco abuse or alcohol abuse. REVIEW OF SYSTEMS: As mentioned in the history of present illness extremely unreliable at this point of time because of confusional state of the patient, but otherwise 14-point review of systems had been conducted and not contributory apart from the current present complaints. PHYSICAL EXAMINATION: GENERAL: Elderly female patient, lying on the stretcher comfortably, not appear to be in any cardiopulmonary distress. Mucous membranes are pale and dry. Acyanotic. Anicteric. No finger clubbing, pedal edema, or lymphadenopathy. VITAL SIGNS: In the emergency department, temperature 102.9, pulse 118, blood pressure 186/84, respirations 28. HEAD: Atraumatic and normocephalic. Eyes, extraocular movements are intact. Pupils are equal and reactive to light bilaterally and accommodation reflex present. CHEST: Bilaterally symmetrical. Trachea is slightly deviated to the right side , otherwise the patient has slightly diminished air entry at both bases with few bilateral basilar respiratory rhonchi, but no expiratory wheezing. CARDIOVASCULAR: Normal intensity of S1 and S2 without S3. No murmurs or rub appreciated. Regular rhythm. ABDOMEN: Soft without any distension and tenderness. The patient has slight fluid thrill, but no shifting dullness. Nontender. No organomegaly and bowel sounds are normoactive. INSTRUMENT MAN: The patient is alert, awake, and oriented to person, but not to time and place. No facial asymmetry. Cranial nerves 2 through 12 are intact. The patient has grade 5/5 power involving both upper and lower extremities. EXTREMITIES: No edema or calf asymmetry. SKIN: The patient has significant erythematosus rash with silvery scales under both breasts and in the inguinal region. LABORATORY DATA: WBC 10.2, hemoglobin 13.2, hematocrit 40.1, platelets 123, sodium 136, potassium 4.0, chloride 99, bicarb 26, anion gap 15, BUN 34, creatinine 2.6 , glucose 127, lactic acid 1.9, calcium 8.3, total bilirubin 0.9, AST 108, ALT 54, alkaline phosphatase 192, CK-MB 1.2, troponin 0.076, serum total protein 7.9, albumin 3.3, globulin 4.6. Urinalysis is clear with negative nitrites, but leukocyte esterase 75, wbc of 7-10. Chest x-ray reveals mild volume overload. 12-lead EKG reveals normal sinus rhythm with no acute ST or T-wave changes. ASSESSMENT: 1. Sepsis of uncertain etiology and rule out the possibility of dialysis catheter infection, urinary tract infection and rule out the possibility of coronavirus. 2. Elevated troponin probably secondary to demand ischemia from sepsis. 3. Stage 5 chronic kidney disease, on maintenance hemodialysis. 4. Acute metabolic encephalopathy, probably related to sepsis, but rule out the possibility of hyperammonemia as the patient had recurrent admissions in the past for hepatic encephalopathy. 5. Essential hypertension. 6. Diabetes mellitus leading to diabetic nephropathy. 7. History of coronary artery disease, status post coronary artery bypass grafting in the past. 8. Chronic diastolic heart failure. 9. Hypothyroidism. 10. Autoimmune cirrhosis of the liver. PLAN: 1. The patient has been admitted for sepsis and the source of sepsis is not clear at this point of time and the patient has Tesio catheter, so we will obtain 2 more sets of blood cultures from the Tesio catheter and we will keep the patient on intravenous vancomycin and Zosyn empirically. 2. The patient had SARS COVID-2 PCR in the emergency department, so we will continue the patient on precautions and await if any antibodies available at this facility. 3. Urinalysis is suggestive of possible urinary tract infection. I will await urine cultures. 4. Obtain 2 more sets of cardiac enzymes to see the trend of troponins as currently, the patient had equivocal elevation of troponins probably secondary to demand ischemia from sepsis. 5. Resume the patient on Coreg because of the history of coronary artery disease along with aspirin under statin therapy. IV labetalol 20 mg every 4 hours as needed for systolic blood pressure more than 170 mmHg. 6. Levemir insulin 10 units subcutaneously at bedtime and keep the patient on moderate dose of lispro insulin sliding scale coverage, but otherwise avoid premeal insulin at this point of time as the patient is confused. The patient has chronic diastolic heart failure, but currently the patient is well compensated. 7. Await for the home medications to be brought to the hospital. 8. Check the serum ammonia level. 9. Resume levothyroxine 88 mcg orally once a day. 10. Avoid anticoagulants for DVT prophylaxis as the patient has chronic thrombocytopenia. Job ID: [id number] MTDD
[2019-11-13 01:50] LABS: CKMB 1.9 ng/mL (0-6.6)
[2019-11-13] MEDS ORDERED: Enoxaparin Sodium 60 MG/0.6 ML SYRINGE SC SCH (02:30)
[2019-11-13] MEDS: Levothyroxine Sodium 88 MCG TAB PO SCH (04:46)
[2019-11-13 05:27] LABS: ALT (SGPT) 41 U/L (8-55); AST (SGOT) 78 U/L (5-34); Albumin 2.9 g/dL (3.4-4.8); Alkaline Phosphatase 132 U/L (40-110); Anion Gap 16 mmol/L (10-20); BUN (Urea Nitrogen) 41 mg/dL (9.8-20.1); Bilirubin, Total 1.4 mg/dL (0.2-1.2); Calc. Creatinine Clearance 14 mL/min (70-130); Calcium 8.5 mg/dL (7.8-10.44); Carbon Dioxide 19 mmol/L (23-31); Chloride 105 mmol/L (98-107); Cholesterol 133 mg/dl (< 200 Desired); Estimated GFR-MDRD 14; Glucose 122 mg/dL (83-110); HDL Cholesterol 45 mg/dL (>60 Neg Risk); LDL Cholesterol, Calculated 72 mg/dL; Potassium 4.1 mmol/L (3.5-5.1); Protein, Total 6.9 g/dL (6.0-8.3); Sodium 136 mmol/L (136-145); Triglycerides 82 mg/dL (Less than 150)
[2019-11-13 05:37] LABS: Hemoglobin 13.7 g/dL (12.0-16.0); Mean Corpuscular HGB CONC 32.6 g/dL (32.0-36.0); Mean Corpuscular Hemoglobin 32.1 pg (27.0-31.0); Mean Corpuscular Volume 98.5 fL (78.0-98.0); Platelet Count 119 thou/uL (130-400); RBC Distribution Width 14.1 % (11.5-14.5); Red Blood Cell (RBC) Count 4.25 mill/uL (4.20-5.40); White Blood Cell (WBC) Count 18.6 thou/uL (4.8-10.8)
[2019-11-13 05:52] LABS: CKMB 2.8 ng/mL (0-6.6)
[2019-11-13 06:24] LABS: Band 30 % (5-11); Eosinophils 1 % (0-10); Lymphocytes 2 % (21-51); MDiff Complete? YES; Metamyelocyte 3 % (0-0); Monocytes 5 % (0-10); Neutrophil 59 % (42-75); Platelet Morphology Comment Appears Decreased
[2019-11-13] MEDS: Carvedilol 6.25 MG TAB PO SCH ×2 (08:33→21:49)
[2019-11-13] MEDS: Ferrous Sulfate 325 MG TAB PO SCH (08:33)
[2019-11-13] MEDS ORDERED: Aspirin 81 mg Enteric Coated Tablet PO SCH (09:00)
--- NOTE | 2019-11-13 14:55 | PDOC.HOSPP ---
- Subjective Encounter Date: 11/13/19 Subjective: The patient was seen and examined. She is still confused today. Denies any chest pain or shortness of breath. - Objective Vital Signs & Weight: Vital Signs (12 hours) Temp Pulse Resp BP Pulse Ox 11/13/19 12:26 98.1 F 61 18 95/58 L 99 11/13/19 08:00 97.8 F 62 20 105/52 L 97 11/13/19 05:08 98.2 F 57 L 20 105/50 L 99 Weight Weight 139 lb 14.4 oz I&O: 11/12/19 11/13/19 11/14/19 06:59 06:59 06:59 Intake Total 400 Output Total 100 Balance 300 Result Diagrams: 11/13/19 04:35 11/13/19 04:35 Additional Labs: Accuchecks 11/13/19 11/12/19 05:29 22:56 POC Glucose 105 84 Hospitalist ROS - Medication Medications: Active Medications Generic Name Dose Route Start Last Admin Trade Name Freq PRN Reason Stop Dose Admin Carvedilol 6.25 mg 11/12/19 21:00 11/13/19 08:33 Coreg PO 6.25 mg BID CHAPARRO Administration Famotidine 20 mg 11/12/19 21:00 11/12/19 23:59 Pepcid SLOW IVP 20 mg Q24HR CHAPARRO Administration Ferrous Sulfate 325 mg 11/13/19 08:00 11/13/19 08:33 Feosol PO 325 mg QAM-WM CHAPARRO Administration Insulin Glargine 10 units/ 0.1 mls @ 0 mls/hr 11/12/19 21:00 11/12/19 23:47 Miscellaneous Medication SC Not Given HS CHAPARRO Piperacillin Sod/Tazobactam 100 mls @ 200 mls/hr 11/12/19 23:59 11/13/19 08: 32 Sod 2.25 gm/ Sodium Chloride IVPB 100 mls 0800,1600,2359 CHAPARRO Administration Lactulose 30 gm 11/12/19 21:00 11/13/19 08:33 Lactulose PO 30 gm TID CHAPARRO Administration Levothyroxine Sodium 88 mcg 11/13/19 06:00 11/13/19 04:46 Synthroid PO 88 mcg 0600 CHAPARRO Administration Paroxetine HCl 10 mg 11/12/19 21:00 11/13/19 00:00 Paxil PO 10 mg HS CHAPARRO Administration - Exam General Appearance: awake alert ENT: normocephalic atraumatic Neck: supple Heart: RRR Respiratory: CTAB, normal chest expansion, normal percussion Gastrointestinal: soft Neurological: cranial nerve grossly intact Hosp A/P (1) Sepsis Code(s): A41.9 - SEPSIS, UNSPECIFIED ORGANISM Status: Acute (2) ESRD (end stage renal disease) on dialysis Code(s): N18.6 - END STAGE RENAL DISEASE; Z99.2 - DEPENDENCE ON RENAL DIALYSIS Status: Acute (3) Streptococcal bacteremia Code(s): R78.81 - BACTEREMIA; B95.5 - UNSP STREPTOCOCCUS THE CAUSE OF DISEASES CLASSD ELSWHR Status: Acute (4) Type 2 AL (myocardial infarction) Code(s): I21.A1 - MYOCARDIAL INFARCTION TYPE 2 Status: Acute - Plan The patient is septic secondary to group B streptococci in the blood which is present in 2 out of 2 samples. Involvement of the dialysis catheter is likely. Continue current broad-spectrum antibiotics. Consult ID. Her dialysis catheter might need to be removed. We will continue her regular hemodialysis schedule on Thursday, Thursday, and Thursday. COVID-19 test still pending. Troponin has peaked at 0.86. This is likely due to demand ischemia. This was discussed with cardiology.
[2019-11-13 17:09] LABS: SARS-CoV-2 MS2 Positive; SARS-CoV-2 N Gene Negative; SARS-CoV-2 S Gene Negative; SARS-CoV-2 orf1ab Negative
[2019-11-13] MEDS: PARoxetine 20 MG TAB PO SCH ×2 (21:49)
[2019-11-13] MEDS: Atorvastatin Calcium 40 MG TAB PO SCH (21:49)
[2019-11-13] MEDS: Famotidine/PF 20 mg/2ml Vial SLOW IVP SCH (21:51)
[2019-11-13] MEDS: Insulin Glargine 10 UNITS in Pre-Filled Syringe 1 EACH SC SCH (21:54)
[2019-11-14] MEDS: Piperacillin/Tazobactam 2.25 GM in Sodium Chloride 0.9% 100 ML IVPB SCH ×2 (01:10→08:50)
[2019-11-14] MEDS: Levothyroxine Sodium 88 MCG TAB PO SCH (04:59)
[2019-11-14] MEDS: Ferrous Sulfate 325 MG TAB PO SCH (08:50)
[2019-11-14] MEDS: Carvedilol 6.25 MG TAB PO SCH ×2 (08:50→21:58)
[2019-11-14 09:33] LABS: Vancomycin, Random 9.8 ug/mL (See Comment)
[2019-11-14] MEDS ORDERED: Heparin 10,000 UNITS/ 10 ML VIAL ONE (10:53)
--- NOTE | 2019-11-14 13:06 | PDOC.HOSPP ---
- Subjective Encounter Date: 11/14/19 Subjective: No new complains - Objective Vital Signs & Weight: Vital Signs (12 hours) Temp Pulse Resp BP BP Pulse Ox 11/14/19 11:26 97.3 F L 55 L 16 125/57 L 97 11/14/19 08:50 124/58 L 11/14/19 08:44 97.6 F 60 14 124/58 L 99 11/14/19 03:25 97.5 F L 59 L 18 103/51 L 98 Weight Weight 139 lb 3.2 oz I&O: 11/13/19 11/14/19 11/15/19 06:59 06:59 06:59 Intake Total 400 300 Output Total 100 4 Balance 300 296 Result Diagrams: 11/13/19 04:35 11/13/19 04:35 Additional Labs: Accuchecks 11/14/19 11/14/19 11/13/19 11:05 05:40 21:58 POC Glucose 126 H 78 110 11/13/19 11/13/19 15:56 11:59 POC Glucose 132 H 151 H Hospitalist ROS - Medication Medications: Active Medications Generic Name Dose Route Start Last Admin Trade Name Freq PRN Reason Stop Dose Admin Acetaminophen 650 mg 11/12/19 20:37 11/13/19 22:00 Tylenol PO 650 mg Q4H PRN Administration Headache/Fever/Mild Pain (1-3) Atorvastatin Calcium 80 mg 11/13/19 21:00 11/13/19 21:49 Lipitor PO 80 mg HS CHAPARRO Administration Carvedilol 6.25 mg 11/12/19 21:00 11/14/19 08:50 Coreg PO 6.25 mg BID CHAPARRO Administration Famotidine 20 mg 11/12/19 21:00 11/13/19 21:51 Pepcid SLOW IVP 20 mg Q24HR CHAPARRO Administration Ferrous Sulfate 325 mg 11/13/19 08:00 11/14/19 08:50 Feosol PO 325 mg QAM-WM CHAPARRO Administration Insulin Glargine 10 units/ 0.1 mls @ 0 mls/hr 11/12/19 21:00 11/13/19 21:54 Miscellaneous Medication SC Not Given HS CHAPARRO Piperacillin Sod/Tazobactam 100 mls @ 200 mls/hr 11/12/19 23:59 11/14/19 08: 50 Sod 2.25 gm/ Sodium Chloride IVPB 100 mls 0800,1600,2359 CHAPARRO Administration Lactulose 30 gm 11/12/19 21:00 11/14/19 08:50 Lactulose PO 30 gm TID CHAPARRO Administration Levothyroxine Sodium 88 mcg 11/13/19 06:00 11/14/19 04:59 Synthroid PO 88 mcg 0600 CHAPARRO Administration Paroxetine HCl 10 mg 11/12/19 21:00 11/13/19 21:49 Paxil PO 10 mg HS CHAPARRO Administration - Exam General Appearance: awake alert ENT: normocephalic atraumatic Neck: supple Heart: RRR Respiratory: normal chest expansion, no tachypnea Neurological: cranial nerve grossly intact, no focal deficits Hosp A/P (1) Sepsis Code(s): A41.9 - SEPSIS, UNSPECIFIED ORGANISM Status: Acute (2) ESRD (end stage renal disease) on dialysis Code(s): N18.6 - END STAGE RENAL DISEASE; Z99.2 - DEPENDENCE ON RENAL DIALYSIS Status: Acute (3) Streptococcal bacteremia Code(s): R78.81 - BACTEREMIA; B95.5 - UNSP STREPTOCOCCUS THE CAUSE OF DISEASES CLASSD ELSWHR Status: Acute (4) Type 2 [place] (myocardial infarction) Code(s): I21.A1 - MYOCARDIAL INFARCTION TYPE 2 Status: Acute - Plan The patient is septic secondary to group B streptococci in the blood which is present in 2 out of 2 samples. Involvement of the dialysis catheter is likely. Continue current broad-spectrum antibiotics. Consulted ID. Her dialysis catheter might need to be removed. We will continue her regular hemodialysis schedule on Thursday, Thursday, and Thursday. Dr. Russo consulted. COVID-19 test negative. Troponin has peaked at 0.86. This is likely due to demand ischemia. This was discussed with cardiology. Check CBC and BMP.
[2019-11-14 13:52] LABS: Band 31 % (5-11); Eosinophils 4 % (0-10); Lymphocytes 4 % (21-51); MDiff Complete? YES; Mean Corpuscular HGB CONC 32.6 g/dL (32.0-36.0); Mean Corpuscular Hemoglobin 32.2 pg (27.0-31.0); Mean Corpuscular Volume 98.9 fL (78.0-98.0); Mean Platelet Volume 7.7 fL (7.4-10.4); Monocytes 6 % (0-10); Neutrophil 51 % (42-75); Ovalocytes SLIGHT = 2-5 cells (100X) (0-1/hpf); Platelet Count 106 thou/uL (130-400); Platelet Morphology Comment Appears Decreased; Polychromasia SLIGHT = 2-3 cells (100X) (0-2/hpf); RBC Distribution Width 14.3 % (11.5-14.5); Reactive Lymphocytes 4 % (0-10); Red Blood Cell (RBC) Count 3.73 mill/uL (4.20-5.40); White Blood Cell (WBC) Count 12.4 thou/uL (4.8-10.8)
--- NOTE | 2019-11-14 15:46 | CON ---
DATE OF CONSULTATION: 11/14/2019 SERVICE: Nephrology. REASON FOR CONSULTATION: End-stage renal disease management. REQUESTING PHYSICIAN: Homa Alan MD HISTORY OF PRESENT ILLNESS/SUBJECTIVE: A 79-year-old female, well known to us from previous hospitalization, admitted on November 12, 2019, due to acute onset of fever and chills associated with generalized weakness and mental status change. Impression of sepsis was made and the patient was subsequently started on broad-spectrum antibiotic therapy. She reports feeling better. Mental status has improved as well. Denied any new complaints. Denied nausea, vomiting, or abdominal pain. The patient dialyzes on Thursday, Thursday, and Thursday via air, right IJ tunneled dialysis catheter. There was no history of drainage from the catheter. Last dialysis at the outpatient dialysis unit was on November 10. OBJECTIVE: VITAL SIGNS: Temperature 97.6, pulse 60, respiratory rate 14, SpO2 of 99% on room air, and blood pressure is 124/68. GENERAL: Elderly female, in no obvious distress. Afebrile, anicteric, and acyanotic. HEENT: Normocephalic, atraumatic. Oral mucosa is moist. NECK: Supple with no JVD. CARDIOVASCULAR: Regular rhythm and rate with normal heart sounds 1 and 2. RESPIRATORY: Fair air entry bilaterally with some transmitted breath sounds. No obvious rhonchi or use of accessory muscles appreciated. GASTROINTESTINAL: Full, soft, nontender, and nondistended with normal bowel sounds. EXTREMITIES: Grossly normal looking, atraumatic with no edema or erythema. SKIN: Scattered, patchy, silvery plaques that were noticed on the trunk and extremities. DIALYSIS ACCESS: Right IJ tunneled dialysis catheter noted. Minimal bleeding is noted under the transparent dressing, but no obvious drainage. CENTRAL NERVOUS SYSTEM: Conscious and alert and oriented x3 with appropriate mental status. DIAGNOSTIC DATA: CBC today showed WBC count of 12.4, hemoglobin of 12.0, MCV of 98.9, and platelet of 106. BMP obtained on November 12 showed sodium 136, potassium 4.1, chloride 105, CO2 of 19, BUN 41, creatinine 3.25, glucose 122, calcium 8.5, albumin 1.4, AST 78, ALT 41, alkaline phosphatase 132, total protein 6.9, albumin 2.9, and globulin 4.0. Random vancomycin level today is 9.8. ASSESSMENT: 1. Sepsis, on treatment. Due to Streptococcus bacteremia. 2. Streptococcus agalactiae bacteremia: This is concerning for catheter associated with bloodstream infection. Source of infection is unclear at this point. Blood cultures x2 so far are growing Streptococcus agalactiae. 3. End-stage renal disease due to hepatorenal syndrome, on hemodialysis on Thursday, Thursday, and Thursday. 4. Volume status: The patient is close to euvolemic. 5. Electrolytes: None today, but BMP of yesterday showed acceptable electrolytes. PLAN: 1. We will dialyze the patient today in line with outpatient hemodialysis schedule using the right IJ tunneled dialysis catheter. 2. We will also get blood culture from the tunneled dialysis catheter. 3. Agree with broad-spectrum antibiotic therapy. 4. We will also consult General Surgery for evaluation with a view to placing an AV fistula on this patient. 5. We may have to take out the tunneled dialysis catheter should the line culture come back positive. Infectious Disease consult have been placed already and input is awaited at this time. Many thanks for involving us in the care of this patient. We will follow along with you. Job ID: [id number]
--- NOTE | 2019-11-14 17:14 | CON ---
DATE OF CONSULTATION: 11/14/2019 REASON FOR CONSULTATION: Bacteremia. HISTORY OF PRESENT ILLNESS: A 79-year-old whom I had seen in March 2019 when she presented with a history of prior UTIs, coronary disease, type 2 diabetes and liver cirrhosis probably due to steatohepatitis with hepatic encephalopathy. At that time, she presented with what we felt was asymptomatic bacteriuria, although due to her encephalopathy she ended up being treated for cystitis. She developed hepatorenal syndrome and had to be started on hemodialysis initially through a groin catheter there, which was eventually transitioned to the right IJ tunneled position. The catheter was placed by Dr. Sepulveda on July 01, 2019. The patient is cared for by Dr. Russo, R[facility] and apparently they are trying to place an AV fistula elsewhere and are having some issues with her insurance. She developed fever and chills recently and came to the emergency room and was admitted. Did not have any headaches, no respiratory symptoms. No diarrhea or vomiting. No abdominal pain. BP was 180/84. On admission, she was slightly tachycardic, temperature 102.9. The heart and lung examination was described as normal. Abdomen was nontender. The tunneled catheter exit site appeared normal. LABORATORY DATA: Initial values included a WBC of 10.2, hemoglobin 13, platelets 123 and neutrophil percentage of 87. Sodium 136, creatinine 2.68, glucose 127, AST 108 and albumin 3.3. Urinalysis with 5-10 wbcs, COVID-19 was checked and was negative. Now, we have 2/2 sets of blood cultures positive for group B Streptococcus, 1 from the right hand and 1 from the left arm. Currently, Ms. Sung is awake. She does not appear in distress. A 10-point review of system as above was negative. She does have a little bit of lower back pain, but that is usual when she is lying down for a protracted period of time. PAST MEDICAL HISTORY: Type 2 diabetes, steatohepatitis, end-stage liver disease, hepatic encephalopathy, coronary artery disease, CHF, hepatorenal syndrome with end-stage kidney disease on hemodialysis with tunneled catheter, psoriasis, coronary artery bypass graft surgery, hysterectomy, ankle fracture and cardiac ablation. SOCIAL HISTORY: Never smoker, never drank alcoholic beverages in her life. . Lives in the area with . ALLERGIES: CEFTRIAXONE, HYDROCODONE, NAPROXEN. FAMILY HISTORY: Diabetes. CURRENT MEDICATIONS: P.r.n. medications: 1. Ecotrin. 2. Lipitor. 3. Coreg. 4. Pepcid. 5. Feosol. 6. Insulin. 7. Lactulose. 8. Levothyroxine. 9. Zosyn. 10. Vancomycin. PHYSICAL EXAMINATION: VITAL SIGNS: Since admission she has been afebrile. Other vital signs are within normal limits. O2 saturations are 97 to 99 on room air. SKIN: Shows multiple lesions of plaque psoriasis in appendicular structures, mostly but also in submammary area. She has a tunneled IJ catheter in the right position with normal appearance. No Trevizo catheter. Peripheral IV access. Ocular movements conjugate. Oral cavity with no craig teeth remaining in place. LUNGS: Symmetric. Clear breath sounds. HEART: S1 and S2, regular rate without murmurs. ABDOMEN: Soft, not distended or tender. No ascites. No bladder distention. EXTREMITIES: No joint inflammatory activity. No edema. Pulses 1+ in dorsalis pedis, popliteals 1+. She is able to move extremities on command. She is oriented and follows commands. Good recollection. Speech appears normal. She is bilingual. LABORATORY DATA: White cell count now is 12.4, hemoglobin 12, platelets 106 with 31% band neutrophils, troponin 0.8660. IMAGING DATA: A chest x-ray with some volume overload. ASSESSMENT: 1. Steatohepatitis with end-stage liver disease. 2. Hepatorenal syndrome with end-stage renal disease, on hemodialysis through a tunneled catheter. 3. Chronic plaque psoriasis. 4. Ischemic cardiomyopathy with prior bypass graft surgery. 5. Group B Streptococcus bacteremia. DISCUSSION: Differential diagnosis includes catheter colonization, group B strep, possible originary from the skin versus transient bacteremia of unknown primary site. We will request the nurse to draw some blood cultures from next dialysis session through dialysis access and see if she is still bacteremic. Discontinue all antimicrobials except for vancomycin sliding scale and in terms of management, we could either try a vanco lock solution and try to keep this access in place or replaced the access assuming colonization. One could wait for the repeat cultures from the access. If they are negative, then not remove it. It looks like she will need eventually to have a better access placed such as an AV fistula and they are trying to find another area to do the procedure apparently. Other sites of involvement such as lungs, spine, long bones and joints are not apparent at this time. Also no evidence of an intraabdominal source. Urinary tract is less likely as well. Job ID: [id number]
[2019-11-14] MEDS: PARoxetine 20 MG TAB PO SCH (21:57)
[2019-11-14] MEDS: Famotidine/PF 20 mg/2ml Vial SLOW IVP SCH (21:59)
[2019-11-14] MEDS: Atorvastatin Calcium 40 MG TAB PO SCH (21:59)
[2019-11-14] MEDS: Insulin Glargine 10 UNITS in Pre-Filled Syringe 1 EACH SC SCH (22:00)
[2019-11-15] MEDS: Levothyroxine Sodium 88 MCG TAB PO SCH (05:56)
[2019-11-15 06:07] LABS: Band 12 % (5-11); Eosinophils 7 % (0-10); Hemoglobin 12.1 g/dL (12.0-16.0); Lymphocytes 15 % (21-51); MDiff Complete? YES; Mean Corpuscular HGB CONC 33.2 g/dL (32.0-36.0); Mean Corpuscular Hemoglobin 32.4 pg (27.0-31.0); Mean Corpuscular Volume 97.4 fL (78.0-98.0); Mean Platelet Volume 7.2 fL (7.4-10.4); Monocytes 9 % (0-10); Neutrophil 57 % (42-75); Platelet Count 110 thou/uL (130-400); Platelet Morphology Comment Appears Decreased; RBC Distribution Width 14.1 % (11.5-14.5); Red Blood Cell (RBC) Count 3.75 mill/uL (4.20-5.40)
[2019-11-15 06:15] LABS: Anion Gap 12 mmol/L (10-20); BUN (Urea Nitrogen) 25 mg/dL (9.8-20.1); Calc. Creatinine Clearance 13 mL/min (70-130); Carbon Dioxide 25 mmol/L (23-31); Chloride 105 mmol/L (98-107); Estimated GFR-MDRD 14; Glucose 65 mg/dL (83-110); Potassium 3.7 mmol/L (3.5-5.1); Sodium 138 mmol/L (136-145)
[2019-11-15] MEDS: Ferrous Sulfate 325 MG TAB PO SCH (09:19)
[2019-11-15] MEDS: Aspirin 81 mg Enteric Coated Tablet PO SCH (09:19)
[2019-11-15] MEDS: Carvedilol 6.25 MG TAB PO SCH ×2 (09:19→21:23)
--- NOTE | 2019-11-15 10:20 | PRG ---
DATE OF SERVICE: 11/15/2019 SERVICE: Nephrology. SUBJECTIVE: A 79-year-old female with end-stage renal disease from hepatorenal syndrome on hemodialysis, admitted due to acute onset of fever and chills associated with mental status change. Found to have Strep agalactiae bacteremia associated with sepsis and started on antibiotics with improvement. Reports feeling better. No new problem. Complains of hunger and desire to eat some solid food as the patient is currently on clear liquid diet. OBJECTIVE: VITAL SIGNS: Temperature 97.5, pulse 55, respiratory rate 14, SpO2 of 100% on room air, blood pressure is 111/53. GENERAL: Elderly female, in no obvious distress. Afebrile. Anicteric. Acyanotic. HEENT: Normocephalic, atraumatic. Oral mucosa is moist. NECK: Supple with no JVD. CARDIOVASCULAR: Regular rhythm and rate with normal heart sounds 1 and 2. RESPIRATORY: Fair air entry bilaterally with no obvious crackle or rhonchi or use of accessory muscles. GI: Full, soft, nontender, nondistended with normal bowel sounds. EXTREMITIES: Grossly normal looking, atraumatic with no obvious edema or erythema. SKIN: Scattered patchy plaques with . NDT INSPECTOR: Conscious, alert, and oriented x3. Some memory lapses noted. DIAGNOSTIC DATA: CBC showed WBC count of 7.0, hemoglobin of 12.1, MCV of 97.4, platelets of 110. Chemistry showed sodium 138, potassium 3.7, chloride 105, CO2 of 25, BUN 25, creatinine 3.25, glucose 65, calcium 8.0. ASSESSMENT: 1. End-stage renal disease secondary to hepatorenal syndrome. On hemodialysis on Thursday, Thursday, Thursday with last hemodialysis being yesterday on November 13, which was well tolerated. 2. Volume status: Euvolemic. 3. Electrolytes: Acceptable. 4. Strep agalactiae bacteremia: Etiology is unclear. Catheter-associated infection is a concern as well as from the skin, given the patient has psoriasis. 5. Psoriasis, currently not on treatment. PLAN: 1. We will continue hemodialysis as needed. 2. AV fistula creation is planned by General Surgery. Further treatment to follow depending on hospital course. Job ID: [id number]
[2019-11-15 16:25] VITALS: BMI 24.0
[2019-11-15] MEDS ORDERED: diphenhydrAMINE 30 GM TUBE TOP PRN (17:11)
--- NOTE | 2019-11-15 18:08 | PRG ---
DATE OF SERVICE: 11/15/2019 SUBJECTIVE: Feeling better. Still itching a lot from her psoriatic lesions, but does not have pain in those lesions. No back pain. No abdominal pain. No cough. OBJECTIVE: VITAL SIGNS: Stays afebrile. Other vital signs are normal. GENERAL: Appears in no distress. LUNGS: With a few crackles here and there. HEART: S1 and S2. Regular rate. SKIN: Psoriatic lesions are quite active. ABDOMEN: Soft. LABORATORY DATA: White cell count 7.0, hemoglobin 12, platelets 110,000, 12% bands. Chemistries not remarkable except for creatinine of 3.25. Group B strep, and 2 sets of blood cultures from the day before yesterday on the . We have one set from the dialysis catheter which is thus far no growth. ASSESSMENT AND DISCUSSION: Chronic plaque psoriasis; steatohepatitis with end-stage liver disease; hepatorenal syndrome with end-stage renal disease, on hemodialysis through a tunneled catheter; group B strep bacteremia of uncertain etiology; and ischemic cardiomyopathy. If the blood culture obtained from the catheter remains negative, then I would just treat it for about 2 weeks with IV vancomycin sliding scale and a vanc lock solution just in case. We will give her some Kenalog cream for her psoriatic lesions. Job ID: [id number]
--- NOTE | 2019-11-15 18:23 | PDOC.HOSPP ---
- Subjective Encounter Date: 11/15/19 Subjective: No new events over the past 24h - Objective Vital Signs & Weight: Vital Signs (12 hours) Temp Pulse Resp BP BP Pulse Ox 11/15/19 09:19 111/53 L 11/15/19 08:00 100 11/15/19 07:34 97.5 F L 57 L 14 111/53 L 100 Weight Admit Weight 131 lb Weight 131 lb 11.2 oz I&O: 11/14/19 11/15/19 11/16/19 06:59 06:59 06:59 Intake Total 300 1100 960 Output Total 4 Balance 296 1100 960 Result Diagrams: 11/15/19 05:22 11/15/19 05:22 Additional Labs: Accuchecks 11/15/19 11/15/19 11/15/19 16:22 11:09 05:03 POC Glucose 149 H 185 H 66 L 11/14/19 20:25 POC Glucose 183 H Hospitalist ROS - Medication Medications: Active Medications Generic Name Dose Route Start Last Admin Trade Name Freq PRN Reason Stop Dose Admin Acetaminophen 650 mg 11/12/19 20:37 11/13/19 22:00 Tylenol PO 650 mg Q4H PRN Administration Headache/Fever/Mild Pain (1-3) Aspirin 81 mg 11/15/19 09:00 11/15/19 09:19 Ecotrin PO 81 mg DAILY CHAPARRO Administration Atorvastatin Calcium 80 mg 11/13/19 21:00 11/14/19 21:59 Lipitor PO 80 mg HS CHAPARRO Administration Carvedilol 6.25 mg 11/12/19 21:00 11/15/19 09:19 Coreg PO 6.25 mg BID CHAPARRO Administration Dextrose/Water 25 gm 11/12/19 20:41 11/15/19 05:56 Dextrose 50% SLOW IVP 25 gm PRN PRN Administration Hypoglycemia Famotidine 20 mg 11/12/19 21:00 11/14/19 21:59 Pepcid SLOW IVP 20 mg Q24HR CHAPARRO Administration Ferrous Sulfate 325 mg 11/13/19 08:00 11/15/19 09:19 Feosol PO 325 mg QAM-WM CHAPARRO Administration Insulin Glargine 10 units/ 0.1 mls @ 0 mls/hr 11/12/19 21:00 11/14/19 22:00 Miscellaneous Medication SC 0.1 mls HS CHAPARRO Administration Lactulose 30 gm 11/12/19 21:00 11/15/19 14:15 Lactulose PO Not Given TID CHAPARRO Levothyroxine Sodium 88 mcg 11/13/19 06:00 11/15/19 05:56 Synthroid PO 88 mcg 0600 CHAPARRO Administration Paroxetine HCl 10 mg 11/12/19 21:00 11/14/19 21:57 Paxil PO 10 mg HS CHAPARRO Administration Sodium Chloride 10 ml 11/14/19 21:00 11/15/19 09:20 Flush - Normal Saline IVF 10 ml Q12HR CHAPARRO Administration - Exam General Appearance: awake alert ENT: normocephalic atraumatic Neck: supple Respiratory: normal chest expansion, no tachypnea Neurological: cranial nerve grossly intact Hosp A/P (1) Sepsis Code(s): A41.9 - SEPSIS, UNSPECIFIED ORGANISM Status: Acute (2) ESRD (end stage renal disease) on dialysis Code(s): N18.6 - END STAGE RENAL DISEASE; Z99.2 - DEPENDENCE ON RENAL DIALYSIS Status: Acute (3) Streptococcal bacteremia Code(s): R78.81 - BACTEREMIA; B95.5 - UNSP STREPTOCOCCUS THE CAUSE OF DISEASES CLASSD ELSWHR Status: Acute (4) Type 2 AR (myocardial infarction) Code(s): I21.A1 - MYOCARDIAL INFARCTION TYPE 2 Status: Acute - Plan Sepsis due to group B streptococci bacteremia. Repeat culture from dialysis catheter is not showing any growth so far. The patient is on vancomycin per ID. Recommended 2 weeks of vancomycin. She can likely be discharged within the next 24 hours. We will continue her regular hemodialysis schedule on Thursday, Thursday, and Thursday. Dr. Russo consulted. COVID-19 test negative. Troponin has peaked at 0.86. This is likely due to demand ischemia. This was discussed with cardiology. Check CBC and BMP.
--- NOTE | 2019-11-15 18:38 | PQF ---
CLINICAL DOCUMENTATION IMPROVEMENT CLARIFICATION FORM: ICD-10 Updated PLEASE DO AN ADDENDUM TO THE PROGRESS NOTE WITH ANY DOCUMENTATION UPDATES OR ADDITIONS AND CARRY THROUGH TO DC SUMMARY. THANK YOU. DATE: 11/15/19 ATTN: HEATHER Please exercise your independent, professional judgment in responding to the clarification form. Clinical indicators are provided on the bottom of this form for your review Please check appropriate box(s): Conflicting documentation was noted in the Medical Record, please clarify if patient is being treated/monitored for: [ > ] TN TYPE 2 [ ] DEMAND ISCHEMIA [ ] Other diagnosis [ ] Unable to determine In addition, please specify: Present on Admission (POA): [ >] Yes [ ] No [ ] Unable to determine For continuity of documentation, please document condition throughout progress notes and discharge summary. Thank You. CLINICAL INDICATORS - SIGNS / SYMPTOMS/ LABS / RESULTS AND LOCATION IN EMR H&P : "ELEVATED TROPONIN PROBABLY SECONDARY TO DEMAND ISCHEMIA" PN 11/12: TYPE 2 TN PN 11/13: TYPE 2 TN TROPONINS 11/11-11/12: 0.076 / 0.860 / 0.804 RISKS: SEPSIS (ER/H&P) BACTEREMIA (PN 11/13) TREATMENT: SERIAL LABS ECOTRIN (START 11/14) ECHO 11/14 (This form is maintained as a part of the permanent medical record) [employer] Machine Tool Mechanic [employer] Winform Viewer 2015 [employer]. All Rights Reserved YASMIN [email or web address] [facility]
[2019-11-15] MEDS: Atorvastatin Calcium 40 MG TAB PO SCH (21:23)
[2019-11-15] MEDS: PARoxetine 20 MG TAB PO SCH (21:23)
[2019-11-15] MEDS: Insulin Glargine 10 UNITS in Pre-Filled Syringe 1 EACH SC SCH (21:24)
[2019-11-15] MEDS: Famotidine/PF 20 mg/2ml Vial SLOW IVP SCH (21:25)
--- NOTE | 2019-11-16 02:46 | CON ---
DATE OF CONSULTATION: REASON FOR CONSULTATION: Need for dialysis access. HISTORY OF PRESENT ILLNESS: Ms. Sung is a 79-year-old woman with end-stage renal failure, who presented to the emergency room with fever, nausea, vomiting, and confusion. She was admitted for sepsis. Blood cultures have grown strep agalactiae, the source is not clear. She has fairly severe plaque psoriasis of skin as the possibility, but colonization or infection of her dialysis catheter is also a concern. This was placed in June by Dr. Sepulveda, but the patient had not followed up with him for permanent access creation and still requires an AV fistula. The patient has improved on antibiotics and blood cultures sent from her catheter have not grown anything to date. PAST MEDICAL HISTORY: Hypertension, diabetes, coronary artery disease, congestive heart failure, cirrhosis, hypothyroidism, and end-stage renal failure. PAST SURGICAL HISTORY: Coronary artery bypass grafting, hysterectomy, ankle surgery, coronary ablation and a tunneled hemodialysis catheter earlier this year. ALLERGIES: SHE REPORTS ALLERGIES TO NAPROXEN, CEFTRIAXONE, TYLENOL, HYDROCODONE, AND MEROPENEM. MEDICATIONS: Outpatient medications include; 1. Spironolactone. 2. Synthroid. 3. Levemir. 4. Iron. 5. Hydralazine. 6. Amlodipine. 7. Aspirin. 8. Coreg. 9. Lasix. REVIEW OF SYSTEMS: Ten system review of systems is basically negative. The patient states that she is feeling fine and back to her baseline. PHYSICAL EXAMINATION: VITAL SIGNS: Normal. The patient is afebrile. HEENT: Unremarkable. NECK: Supple without lymphadenopathy or thyroid nodules. HEART: Regular in its rate and rhythm without murmurs, rubs, or gallops. LUNGS: Clear to auscultation bilaterally. The catheter site is clean and nontender. ABDOMEN: Soft, nontender, nondistended. EXTREMITIES: Warm and well perfused without edema. Her fingertips are cold and her pulses at the wrist are somewhat weak. She has small veins bilaterally in the forearms with larger antecubital veins. Teodoro's testing shows bilateral filling. NEUROLOGIC: Weakness of the right arm. The patient states that this is chronic, but cannot explain the cause. No other focal deficits. PSYCHIATRIC: Alert, oriented and appropriate. LABORATORY DATA: White count is normal at 7, hematocrit 36, platelets 110. BUN and creatinine are 25 and 3.25. Electrolytes are unremarkable. IMAGING: Vein mapping was performed in June, which showed small forearm cephalic veins bilaterally measuring from 1 to 4 mm. In the upper arm, her cephalic vein is somewhat larger, measuring from 3 to 4 mm on the right and from 1 to 2 mm on the left. Basilic vein in the upper arm bilaterally are fairly good caliber at over 3 mm. ASSESSMENT: End-stage renal failure with need for permanent access. Her catheter is possibly colonized. She is being treated with antibiotics and repeat cultures drawn through the catheter have not shown any growth to date, so the catheter may be salvageable in the short term. However, she still requires access. She has decided she would rather have the access on her left arm. Her upper arm basilic vein is potentially usable. She understands that if this is the vein that is used, that the two-part procedure will be offered with later transposition. Inherent risks of the surgery were discussed with her. These include, but are not limited to, bleeding, infection, risks of anesthesia, failure of the fistula to develop, the need for other procedures including transposition and arterial steal, which can lead to ischemia of the hand. Signs and symptoms of steal were discussed with the patient and she understands that she is to seek immediate medical attention if these occur. I will try to add her on to the schedule for later this week. Job ID: [id number]
[2019-11-16] MEDS: Levothyroxine Sodium 88 MCG TAB PO SCH (05:44)
[2019-11-16 07:00] LABS: PTT 34.8 sec (22.9-36.1); Prothrombin Time 12.8 sec (12.0-14.7)
[2019-11-16 07:08] LABS: Anion Gap 14 mmol/L (10-20); BUN (Urea Nitrogen) 42 mg/dL (9.8-20.1); Calc. Creatinine Clearance 9 mL/min (70-130); Carbon Dioxide 20 mmol/L (23-31); Chloride 106 mmol/L (98-107); Estimated GFR-MDRD 8; Glucose 107 mg/dL (83-110); Potassium 4.1 mmol/L (3.5-5.1); Sodium 136 mmol/L (136-145)
[2019-11-16 07:57] LABS: Band 6 % (5-11); Eosinophils 3 % (0-10); Hemoglobin 12.9 g/dL (12.0-16.0); Lymphocytes 24 % (21-51); MDiff Complete? YES; Macrocytosis SLIGHT = 6-15 cells (100X) (0-5/hpf); Mean Corpuscular HGB CONC 33.1 g/dL (32.0-36.0); Mean Corpuscular Hemoglobin 32.6 pg (27.0-31.0); Mean Corpuscular Volume 98.2 fL (78.0-98.0); Monocytes 8 % (0-10); Neutrophil 57 % (42-75); Platelet Count 104 thou/uL (130-400); Platelet Morphology Comment Appears Decreased; Red Blood Cell (RBC) Count 3.97 mill/uL (4.20-5.40); White Blood Cell (WBC) Count 5.6 thou/uL (4.8-10.8)
[2019-11-16] MEDS: Ferrous Sulfate 325 MG TAB PO SCH ×2 (08:40→14:21)
[2019-11-16] MEDS: Aspirin 81 mg Enteric Coated Tablet PO SCH ×2 (08:40→14:21)
[2019-11-16 11:18] LABS: Vancomycin, Random 7.6 ug/mL (See Comment)
[2019-11-16] MEDS ORDERED: Vancomycin Sliding Scale 1 EACH FS ONE (11:30)
[2019-11-16] MEDS ORDERED: Vancomycin HCl 500 MG in Sodium Chloride 0.9% 100 ML IVPB SCH (11:30)
[2019-11-16] MEDS ORDERED: HOLD VANCOMYCIN FOR LEVEL >20 FS SCH (11:30)
[2019-11-16] MEDS ORDERED: Vancomycin 1 GM in Premix Bag 1 BAG IVPB SCH (11:30)
[2019-11-16] MEDS ORDERED: Vancomycin HCl 750 MG in Sodium Chloride 0.9% 250 ML 250 ML IVPB SCH (11:30)
[2019-11-16] MEDS ORDERED: Vancomycin HCl 1.25 GM in Sodium Chloride 0.9% 250 ML 250 ML IVPB SCH (11:30)
--- NOTE | 2019-11-16 11:33 | PRG ---
DATE OF SERVICE: 11/16/2019 SERVICE: Nephrology. SUBJECTIVE: A 79-year-old female, seen in followup for end-stage renal disease management. The patient was admitted due to acute onset of fever and chills, and subsequently found to have Strep agalactiae bacteremia. No new problem. Feeling better. OBJECTIVE: VITAL SIGNS: Temperature 97.7, pulse 61, respiratory rate 19, SpO2 of 100% on room air, blood pressure is 116/53. GENERAL: Elderly female, in no distress. Afebrile, anicteric, acyanotic. HEENT: Normocephalic and atraumatic. CARDIOVASCULAR: Regular rhythm and rate with normal heart sounds 1 and 2. RESPIRATORY: Good air entry bilaterally with no obvious rhonchi or use of accessory muscles. GI: Full, soft, nontender, nondistended with normal bowel sounds. EXTREMITIES: Grossly normal looking, atraumatic with no obvious edema or erythema. SKIN: Scattered psoriatic flakes noted. MOTION PICTURE SET WORKER: Conscious and alert and oriented x3 with appropriate mental status. DIAGNOSTIC DATA: BMP showed sodium 136, potassium 4.1, chloride 106, CO2 of 20, BUN 42, and creatinine 4.9. Glucose 107, calcium 8.0. ASSESSMENT: 1. End-stage renal disease, on hemodialysis on Thursday, Thursday, Thursday. The patient was seen in hemodialysis and is tolerating treatment as expected. 2. Gram-positive bacteremia. Blood culture grew Streptococcus agalactiae. This was obtained from the serial blood cultures. Blood culture collected from the dialysis catheter is no growth to date. 3. Psoriasis. 4. Autoimmune hepatitis. PLAN: The patient can be discharged from Nephrology point of view if General Surgery could not do the planned AV fistula today or tomorrow. outpatient arrangements could be made. We will continue vancomycin with dialysis as recommended by Infectious Disease if patient is discharged. Job ID: [id number]
[2019-11-16] MEDS: Carvedilol 6.25 MG TAB PO SCH ×2 (14:22→21:00)
[2019-11-16] MEDS: Betamethasone 0.1% Cream 45 GM TUBE TOP SCH ×2 (14:29→21:02)
[2019-11-16] MEDS ORDERED: CEFAZOLIN 2 GM in Premix Bag 1 BAG IVPB SCH (14:45)
--- NOTE | 2019-11-16 15:38 | PDOC.GSPN ---
Surgery Progress Note: Subj - Subjective Narrative: Patient in dialysis. Vital signs and labs look okay. She is on the schedule for a left AV fistula tomorrow morning. No new recommendations. Surgery Progress Note: Obj - Vital signs Vital signs: Vital Signs - Most Recent Temp Pulse Resp BP Pulse Ox 97.7 F 61 16 112/62 100 11/16/19 13:00 11/16/19 13:00 11/16/19 13:00 11/16/19 14:22 11/16/19 13:00 Surgery Progress Note: Results - Labs Result Diagrams: 11/16/19 06:12 11/16/19 06:12 Lab results: Laboratory Results - last 24 hr 11/16/19 11/16/19 11/16/19 05:36 06:12 06:12 WBC 5.6 RBC 3.97 L Hgb 12.9 Hct 39.0 MCV 98.2 H MCH 32.6 H MCHC 33.1 RDW 14.0 Plt Count 104 L MPV 7.0 L Neutrophils % (Manual) 57 Band Neuts % (Manual) 6 Lymphocytes % (Manual) 24 Monocytes % (Manual) 8 Eosinophils % (Manual) 3 Basophils % (Manual) 2 Plt Morphology Comment Appears Decreased L Macrocytosis SLIGHT = 6-15 cells PT INR APTT Sodium 136 Potassium 4.1 Chloride 106 Carbon Dioxide 20 L Anion Gap 14 BUN 42 H Creatinine 4.93 H Estimated GFR (MDRD) 8 Glucose 107 POC Glucose 99 Calcium 8.0 Random Vancomycin 11/16/19 11/16/19 06:12 10:38 WBC RBC Hgb Hct MCV MCH MCHC RDW Plt Count MPV Neutrophils % (Manual) Band Neuts % (Manual) Lymphocytes % (Manual) Monocytes % (Manual) Eosinophils % (Manual) Basophils % (Manual) Plt Morphology Comment Macrocytosis PT 12.8 INR 1.0 APTT 34.8 Sodium Potassium Chloride Carbon Dioxide Anion Gap BUN Creatinine Estimated GFR (MDRD) Glucose POC Glucose Calcium Random Vancomycin 7.6
--- NOTE | 2019-11-16 15:47 | PRG ---
DATE OF SERVICE: 11/16/2019 SUBJECTIVE: Ms. Sung is going to have AV fistula placed by Dr. Young and she is otherwise without chest pain and no dyspnea. Psoriasis is bothering her. No joint symptoms. OBJECTIVE: VITAL SIGNS: The temperature has been normal. BP 112/62. SKIN: Psoriatic plaques mostly in the appendicular structures skin. LUNGS: Clear. HEART: S1 and S2. Regular rate. The tunneled dialysis catheter in the right IJ position. LABORATORY DATA: White cell count 5.6, hemoglobin 12.9, and creatinine 4.93. The dialysis catheter culture, no growth in 48 hours. The patient had echocardiogram with EF 55% to 60%, moderate to severe tricuspid regurg, moderately elevated pulmonary artery pressure. ASSESSMENT AND DISCUSSION: Chronic plaque psoriasis, steatohepatitis with end-stage liver disease, hepatorenal syndrome with end-stage renal disease, on hemodialysis with tunneled catheter, having now group B strep bacteremia presumably from skin source. We will need to get this psoriasis under better control. She probably would be a candidate for those monoclonal antibody therapies to control psoriatic arthritis and psoriatic plaque lesions. Most of them I think are janus kinase inhibitors and they are quite expensive and would have to be monitored by the sole dyer. In the meantime, I have prescribed corticosteroids topically but those will take a while to start working. After the AV fistula was placed, I would advise a total of 2 weeks of IV therapy with vancomycin sliding scale and then stop and keep the hemodialysis catheter until the AV fistula is mature. Evidently, if there is recrudescence of the group B strep bacteremia, then we will have to consider removal of the dialysis catheter. Job ID: [id number]
--- NOTE | 2019-11-16 20:03 | PDOC.HOSPP ---
- Subjective Encounter Date: 11/16/19 Subjective: Tolerating HD - Objective Vital Signs & Weight: Vital Signs (12 hours) Temp Pulse Resp BP BP BP Pulse Ox 11/16/19 16:06 98.0 F 62 17 112/62 98 11/16/19 14:22 112/62 11/16/19 13:00 97.7 F 61 16 112/62 100 Weight Admit Weight 131 lb Weight 131 lb 11.2 oz I&O: 11/15/19 11/16/19 11/17/19 06:59 06:59 06:59 Intake Total 1100 1310 761 Balance 1100 1310 761 Result Diagrams: 11/16/19 06:12 11/16/19 06:12 Additional Labs: Accuchecks 11/16/19 11/16/19 11/15/19 16:15 05:36 20:35 POC Glucose 174 H 99 143 H Hospitalist ROS - Medication Medications: Active Medications Generic Name Dose Route Start Last Admin Trade Name Freq PRN Reason Stop Dose Admin Acetaminophen 650 mg 11/12/19 20:37 11/13/19 22:00 Tylenol PO 650 mg Q4H PRN Administration Headache/Fever/Mild Pain (1-3) Aspirin 81 mg 11/15/19 09:00 11/16/19 14:21 Ecotrin PO 81 mg DAILY CHAPARRO Administration Atorvastatin Calcium 80 mg 11/13/19 21:00 11/15/19 21:23 Lipitor PO 80 mg HS CHAPARRO Administration Betamethasone Valerate 0 gm 11/16/19 21:00 11/16/19 14:29 Valisone 0.1% Cream TOP 1 applic BID CHAPARRO Administration Carvedilol 6.25 mg 11/12/19 21:00 11/16/19 14:22 Coreg PO 6.25 mg BID CHAPARRO Administration Dextrose/Water 25 gm 11/12/19 20:41 11/15/19 05:56 Dextrose 50% SLOW IVP 25 gm PRN PRN Administration Hypoglycemia Famotidine 20 mg 11/12/19 21:00 11/15/19 21:25 Pepcid SLOW IVP 20 mg Q24HR CHAPARRO Administration Ferrous Sulfate 325 mg 11/13/19 08:00 11/16/19 14:21 Feosol PO 325 mg QAM-WM CHAPARRO Administration Insulin Glargine 10 units/ 0.1 mls @ 0 mls/hr 11/12/19 21:00 11/15/19 21:24 Miscellaneous Medication SC 0.1 mls HS CHAPARRO Administration Insulin Human Lispro 0 units 11/12/19 20:41 11/16/19 17:24 Humalog SC 2 unit .MODERATE SLIDING SC PRN Administration Moderate Correctional Scale Lactulose 30 gm 11/12/19 21:00 11/16/19 14:24 Lactulose PO 30 gm TID CHAPARRO Administration Levothyroxine Sodium 88 mcg 11/13/19 06:00 11/16/19 05:44 Synthroid PO 88 mcg 0600 CHAPARRO Administration Paroxetine HCl 10 mg 11/12/19 21:00 11/15/19 21:23 Paxil PO 10 mg HS CHAPARRO Administration Sodium Chloride 10 ml 11/14/19 21:00 11/16/19 14:28 Flush - Normal Saline IVF 10 ml Q12HR CHAPARRO Administration - Exam General Appearance: awake alert Neck: supple Heart: RRR Respiratory: normal chest expansion, no tachypnea Gastrointestinal: soft Hosp A/P (1) Sepsis Code(s): A41.9 - SEPSIS, UNSPECIFIED ORGANISM Status: Acute (2) ESRD (end stage renal disease) on dialysis Code(s): N18.6 - END STAGE RENAL DISEASE; Z99.2 - DEPENDENCE ON RENAL DIALYSIS Status: Acute (3) Streptococcal bacteremia Code(s): R78.81 - BACTEREMIA; B95.5 - UNSP STREPTOCOCCUS THE CAUSE OF DISEASES CLASSD ELSWHR Status: Acute (4) Type 2 MD (myocardial infarction) Code(s): I21.A1 - MYOCARDIAL INFARCTION TYPE 2 Status: Acute - Plan Sepsis due to group B streptococci bacteremia. Repeat culture from dialysis catheter is not showing any growth so far. The patient is on vancomycin per ID. Recommended 2 weeks of vancomycin. We will continue her regular hemodialysis schedule on Thursday, Thursday, and Thursday. Dr. Russo consulted. COVID-19 test negative. Troponin has peaked at 0.86. This is likely due to demand ischemia. This was discussed with cardiology. Surgery planning AV shunt formation tomorrow.
[2019-11-16] MEDS: Famotidine/PF 20 mg/2ml Vial SLOW IVP SCH (20:59)
[2019-11-16] MEDS: PARoxetine 20 MG TAB PO SCH (21:00)
[2019-11-16] MEDS: Atorvastatin Calcium 40 MG TAB PO SCH (21:00)
[2019-11-16] MEDS: Insulin Glargine 10 UNITS in Pre-Filled Syringe 1 EACH SC SCH (21:02)
[2019-11-17 06:17] LABS: Anion Gap 16 mmol/L (10-20); BUN (Urea Nitrogen) 27 mg/dL (9.8-20.1); Calc. Creatinine Clearance 12 mL/min (70-130); Carbon Dioxide 21 mmol/L (23-31); Chloride 102 mmol/L (98-107); Estimated GFR-MDRD 12; Glucose 87 mg/dL (83-110); Potassium 4.9 mmol/L (3.5-5.1); Sodium 134 mmol/L (136-145)
[2019-11-17] MEDS: Carvedilol 6.25 MG TAB PO SCH (06:18)
[2019-11-17] MEDS: Levothyroxine Sodium 88 MCG TAB PO SCH (06:18)
[2019-11-17 06:30] LABS: Band 4 % (5-11); Eosinophils 10 % (0-10); Hemoglobin 13.4 g/dL (12.0-16.0); Lymphocytes 23 % (21-51); MDiff Complete? YES; Mean Corpuscular HGB CONC 33.4 g/dL (32.0-36.0); Mean Corpuscular Hemoglobin 32.2 pg (27.0-31.0); Mean Corpuscular Volume 96.3 fL (78.0-98.0); Mean Platelet Volume 7.6 fL (7.4-10.4); Monocytes 14 % (0-10); Myelocyte 1 % (0-0); Neutrophil 48 % (42-75); Platelet Count 99 thou/uL (130-400); Platelet Morphology Comment Appears Decreased; RBC Distribution Width 13.9 % (11.5-14.5); Red Blood Cell (RBC) Count 4.16 mill/uL (4.20-5.40); White Blood Cell (WBC) Count 6.9 thou/uL (4.8-10.8)
[2019-11-17] MEDS: Ferrous Sulfate 325 MG TAB PO SCH (08:00)
[2019-11-17] MEDS: Aspirin 81 mg Enteric Coated Tablet PO SCH (09:40)
[2019-11-17] MEDS: Betamethasone 0.1% Cream 45 GM TUBE TOP SCH (09:40)
[2019-11-17] MEDS ORDERED: Heparin 5,000 UNITS/ML VIAL ONE (09:47)
[2019-11-17] MEDS ORDERED: Lidocaine 1% w/Epinephrine 1:100K 20 ML VIAL ONE (09:47)
[2019-11-17] MEDS ORDERED: Protamine Sulfate 50 MG/5 ML VIAL ONE (09:47)
[2019-11-17] MEDS ORDERED: Bupivacaine 0.25% HCL 30 ML VIAL ONE (09:47)
[2019-11-17] MEDS ORDERED: Bupivacaine PF 0.5% 30 ML VIAL ONE (10:04)
[2019-11-17] MEDS ORDERED: Fentanyl 100 MCG/2 ML VIAL ONE (10:31)
[2019-11-17] MEDS ORDERED: Dextrose 50% Abboject 50 ML SYRINGE ONE (10:46)
[2019-11-17] MEDS ORDERED: Ioversol 68 % 50 ML VIAL ONE (11:23)
[2019-11-17] MEDS ORDERED: PROPOFOL 200 MG/20 ML VIAL ONE (13:48)
--- NOTE | 2019-11-17 14:29 | RAD ---
EXAM: XR Angio Upper Ext Lt Ltd PROVIDED CLINICAL HISTORY: Evaluation of left arm arteriovenous fistula. COMPARISON: None FINDINGS/IMPRESSION: Fluoroscopic imaging was provided for Dr. Young for evaluation of left upper extremity arteriovenou s dialysis fistula. Limited fluoroscopic images are provided demonstrating opacification of venous structures at the level of the antecubital fossa and proximal forearm. Correlation with intraoperativ e findings is recommended.
[2019-11-17] MEDS ORDERED: Bupivacaine HCl 0.5%/Epinephrine 1:200,000/PF 30 ml Vial ONE (14:45)
[2019-11-17 15:43] VITALS: TEMP 98
[2019-11-17 16:45] VITALS: BP 128/63
--- NOTE | 2019-11-17 17:22 | PDOC.OP ---
Operative Note - Operative Note Operative Note: DATE OF PROCEDURE: PROCEDURE: Left upper arm brachiobasilic AV fistula. SURGEON: Latasha Young M.D. PREOPERATIVE DIAGNOSIS: End-stage renal failure. POSTOPERATIVE DIAGNOSIS: End-stage renal failure. HISTORY: Patient with end-stage renal failure who requires permanent access for ongoing hemodialysis. After reviewing vein mapping the decision was made to proceed with a primary fistula on the left. PROCEDURE: After informed consent was obtained and appropriate preoperative antibiotics administered, the patient was taken to the operating room and was placed in supine position and anesthesia was administered. A preoperative block had been administered and adequacy of block was confirmed. An incision was made at the wrist and the cephalic vein at the level of the wrist was dissected out but was found to be of inadequate caliber to support a primary fistula. A second then on the dorsal part of her distal forearm was felt to be potentially usable and was dissected free but had a stenosis. This was dissected free up above the level of the stenosis and accepted up to a 3 mm dilator but had somewhat sluggish outflow. A venogram was performed which showed multiple collaterals but fairly normal-appearing caliber of the main cephalic vein. This was tunneled over to the radial artery, which was dissected free at a higher level, but the vein was under some tension. A couple collaterals were ligated atecubital vein was marked on the skin as was the palpable brachial pulse. An incision was made between these 2 structures and dissectnd divided to allow the vein to reach the artery without tension, but following this the artery was even more difficult to flush. It was felt that the vein was dependent on the collaterals from much of its outflow and that the main branch of the cephalic was too small to support a fistula and would ultimately fail. Attention was then turned to the upper arm. The palpable brachial artery pulse was marked on the skin and an incision made overlying the antecubital vein complex. Dissection was carried down to the antecubital vein to the junction of the basilic and cephalic veins. The forearm cephalic vein was dissected out and was felt to be of adequate caliber and quality to support an AV fistula. The vein was interrogated with cardiac dilators and easily accepted up to a 3mm dilator of the basilic outflow. The cephalic vein in the upper arm had a stenosis just above the bifurcation. The vein was flushed with heparinized saline and clamped. The brachial artery was identified and dissected free to the bifurcation of the radial and ulnar artery. The radial artery was felt to be of adequate caliber and quality to support a fistula. This was dissected free. Heparin was administered systemically and allowed to circulate for 3 minutes. After the heparin had circulated for 3 minutes, the break artery was clamped proximally and distally. An anterior arteriotomy was created with an 11 blade and extended with Hdz scissors. The vein was spatulated and an end-to-side anastomosis was created with excellent technical result. Prior to tying down the anastomosis, the arterial inflow was released flushing the anastomosis. The anastomosis was then secured and hemostasis was verified. Flow was established first through the fistula following which flow was restored through the artery. The patient had a palpable thrill in the basilic outflow as well as a good Doppler signal in the same distribution. The wound was irrigated and examined for hemostasis was again confirmed to be excellent. The subcutaneous tissues were reapproximated with a running 3-0 Monocryl sutures and the skin was closed with running 4-0 subcuticular Monocryl suture. The other incisions at the forearm were closed in the same manner. Dermabond dressings were placed. Prior to leaving the operating room the fistula was again examined by Doppler and a good bruit confirmed. The patient was then taken to recovery in good condition. Estimated blood loss was minimal. There were no complications. There were no specimens.
--- NOTE | 2019-11-18 00:39 | DIS ---
DATE OF ADMISSION: 11/12/2019 DATE OF DISCHARGE: 11/17/2019 DISCHARGE DIAGNOSES: 1. Bacteremia due to group B streptococci. 2. Sepsis. 3. End-stage renal disease, on hemodialysis. 4. Type 2 myocardial infarction. 5. COVID-19 ruled out. DISCHARGE MEDICATIONS: 1. IV vancomycin with dialysis for 2 weeks. 2. Carvedilol 6.25 mg orally twice daily. 3. Ferrous sulfate 65 mg orally daily. 4. Lactulose 30 mL orally t.i.d. 5. Levothyroxine 88 mcg orally daily. 6. Paroxetine 10 mg orally nightly. 7. Hydroxyzine 10 mg orally t.i.d. as needed for itching. 8. Rifaximin 550 mg orally twice daily. 9. DuoNeb 3 mL nebulized q.6 hours as needed for shortness of breath or wheezing. 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 The patient was brought to the hospital due to fever associated with nausea and vomiting. She was found to be septic in the emergency department and was admitted to the hospital with broad-spectrum IV antibiotics. Culture results showed growth B streptococci on 2/2 samples. Antibiotics were narrowed to vancomycin by ID. Repeat cultures from the dialysis catheter did not show any growth and the catheter was salvaged for now. The patient also underwent AV fistula formation prior to discharge. ID recommended two weeks of vancomycin and sliding scale. The patient's sepsis resolved prior to discharge. Job ID: [id number]
--- NOTE | 2019-11-19 01:02 | PQF ---
[employer] Professor Crystal Reports Winform Viewer LASHAWN HOLT MOEZ [id number] [address] [place] [address] [id number] CLINICAL DOCUMENTATION CLARIFICATION FORM: POST DISCHARGE Addendum to original discharge summary date: ____ Late entry note date: __ DATE: 11/19/19 ATTN: Homa Alan Please exercise your independent, professional judgment in responding to the clarification form. Clinical indicators are provided on the bottom of this form for your review Based on your clinical judgement can you please further clarify the etiology of Sepsis? Please check appropriate box(es): [ ] Sepsis due dialysis catheter infection [ > ] Sepsis due group B streptococcus bactremia. Dialysis catheter is a likely source. [ ] Sepsis of unknown etiology [ ] Other diagnosis [ ] Unable to determine In addition, please specify: Present on Admission (POA): [ >] Yes [ ] No [ ] Unable to determine For continuity of documentation, please document condition throughout progress notes and discharge summary. Thank You. CLINICAL INDICATORS - SIGNS / SYMPTOMS / LABS H and P pg.1- the patient has tachycardia associated with fever for which sepsis protocol has been initiated H and P pg.3- Sepsis of unclear etiology and rule rule out the possibility of dialysis catheter infection H and P pg.3- Metabolic encephalopathy probably related to sepsis Consult Dr. Russo pg.2- Streptococcus agalactiae bacteremia. Source of infection is unclear at this point Consult Dr. Russo pg.2- Concerning for catheter associated with blood stream infection Consult Dr. Isabel pg.2- Differential diagnosis includes catheter colonization, group B strep possibly originally from skin vs transient bacteremia of unknown primary site PN pg.1- group B strep bacteremia presumably from skin source DS pg.1- Culture results showed growth B streptococci on 2/2 samples. Ds pg.1- Repeat cultures from the dialysis catheter did not shoe any growth and the catheter was salvaged for now RISK FACTORS Bacteremia- Consult pg.1 DM- H and P pg.1 HTN- H and P pg.1 ESRD with tunneled catheter-Consult pg.1 CHF- H and P pg.1 79 years old- H and P pg.1 TREATMENTS: Placed on isolation- H and P pg.[address] Isabel 11/[address] Russo 11/13 IV Fluids- AUG IV Antibiotics- AUG Blood culture- Microbiology (This form is maintained as a part of the permanent medical record) 2014 [employer]. All Rights Reserved [email or web address]
== END 2019-11-17 17:29 | disposition home or self-care (01) | DRG 264 ==
LOC: ERS 15:54 → 2SW 22:45 → 2NO 11-13 21:02 → T4-B 11-14 19:49
PROVIDERS: ADMIT Hospitalist; ATTEND Hospitalist
PROC: 5A1D70Z Performance of Urinary Filtration, Intermittent, Less than 6 Hours Per Day (ICD-10-PCS; 2019-11-09)
PROC: 8E0ZXY6 Isolation (ICD-10-PCS; 2019-11-12)
PROC: 031C3ZF Bypass Left Radial Artery to Lower Arm Vein, Percutaneous Approach (ICD-10-PCS; principal; 2019-11-17)
PROC: 02HV33Z Insertion of Infusion Device into Superior Vena Cava, Percutaneous Approach (ICD-10-PCS; 2019-11-17)
DX: T80.211A Bloodstream infection due to central venous catheter, initial encounter (principal); A40.1 Sepsis due to streptococcus, group B; I21.A1 Myocardial infarction type 2; N18.6 End stage renal disease; G93.41 Metabolic encephalopathy; K76.7 Hepatorenal syndrome; I13.2 Hypertensive heart and chronic kidney disease with heart failure and with stage 5 chronic kidney disease, or end stage renal disease; I50.32 Chronic diastolic (congestive) heart failure; Z20.828 Contact with and (suspected) exposure to other viral communicable diseases; E11.22 Type 2 diabetes mellitus with diabetic chronic kidney disease; E03.9 Hypothyroidism, unspecified; I25.10 Atherosclerotic heart disease of native coronary artery without angina pectoris; I25.5 Ischemic cardiomyopathy; K75.4 Autoimmune hepatitis; L40.9 Psoriasis, unspecified; K74.69 Other cirrhosis of liver; Z99.2 Dependence on renal dialysis; Z88.1 Allergy status to other antibiotic agents; Z95.1 Presence of aortocoronary bypass graft; Z88.5 Allergy status to narcotic agent; Z88.8 Allergy status to other drugs, medicaments and biological substances; Z79.890 Hormone replacement therapy; Z79.4 Long term (current) use of insulin; Z79.82 Long term (current) use of aspirin; Z79.899 Other long term (current) drug therapy; Z90.710 Acquired absence of both cervix and uterus; Y84.0 Cardiac catheterization as the cause of abnormal reaction of the patient, or of later complication, without mention of misadventure at the time of the procedure
CPT/HCPCS: 36415; 36416; 36600; 71045; 76000; 80048; 80053; 80061; 80202; 81003; 81015; 82140; 82553; 83605; 84484; 85007; 85025; 85027; 85610; 85730; 87040; 87077; 87086; 87149; 87186; 87635; 90935; 93005; 93306; 94760; 96361; 96365; 96367; A4353; G0257; J0670; J0690; J1610; J1644; J1650; J1815; J1956; J2543; J2704; J2720; J3010; J3370; J3490; Q9967; S0020; S0028; U0003

== ENCOUNTER 2019-11-29 09:12 | Outpatient (CLI) | payer MEDICARE ==
--- NOTE | 2019-11-29 13:56 | ULT ---
HEPATIC ULTRASOUND WITH DOPPLER: 11/29/19 INDICATIONS: Cirrhosis. The liver is exhibits a mildly coarse echotexture but is otherwise unremarkable. No focal liver lesio n. The hepatic vessels were evaluated with color Doppler and spectral analysis. Normal blood flow is see n in all hepatic vessels including IV, portal veins, hepatic veins, hepatic artery, splenic vein and splenic artery. Patient is status post cholecystectomy. The common bile duct is normal caliber. The aorta and pancreas are obscured and not imaged. The spleen is upper normal size measured at 12 cm. No evidence of ascites. Kidneys are not imaged. IMPRESSION: Unremarkable hepatic ultrasound. All vessels show hepatopetal blood flow. POS: AGW
== END 2019-11-29 09:13 | disposition home or self-care (01) ==
LOC: BICULT 09:12
PROVIDERS: ATTEND Physician Assistant Medical
DX: N18.3 Chronic kidney disease, stage 3 (moderate) (principal); K72.90 Hepatic failure, unspecified without coma; K74.69 Other cirrhosis of liver
CPT/HCPCS: 76705

== ENCOUNTER 2019-12-14 20:23 | Inpatient (IN) | payer MEDICARE, OTHER ==
[2019-12-14 21:24] LABS: ALT (SGPT) 31 U/L (8-55); AST (SGOT) 52 U/L (5-34); Albumin 3.3 g/dL (3.4-4.8); Alkaline Phosphatase 193 U/L (40-110); Anion Gap 14 mmol/L (10-20); BUN (Urea Nitrogen) 15 mg/dL (9.8-20.1); Bilirubin, Total 0.6 mg/dL (0.2-1.2); Calc. Creatinine Clearance 0 mL/min (70-130); Calcium 8.5 mg/dL (7.8-10.44); Carbon Dioxide 25 mmol/L (23-31); Chloride 97 mmol/L (98-107); Estimated GFR-MDRD 19; Globulin 4.5 g/dL (2.4-3.5); Glucose 226 mg/dL (83-110); Potassium 4.8 mmol/L (3.5-5.1); Protein, Total 7.8 g/dL (6.0-8.3); Sodium 131 mmol/L (136-145)
[2019-12-14 22:00] LABS: Bacteria/HPF 4+ HPF (None Seen); Bilirubin Negative (Negative); Blood, Urine 2+ (Negative); Clarity Extra Turbid (Clear); Glucose, Urine (Dipstick) Normal (Negative); Leukocyte 500 Leu/uL (Negative); Nitrite Negative (Negative); Protein, Urine (Dipstick) 100 mg/dL (Neg-Trace); Squamous Epithelial None Seen HPF (0-3); WBC/HPF Greater than 50 HPF (0-3)
[2019-12-14 23:22] LABS: #Basophils 0.1 thou/uL (0.0-0.2); #Eosinphils 0.1 thou/uL (0.0-0.7); #Lymphocytes 1.3 thou/uL (1.20-3.40); #Monocytes 1.2 thou/uL (0.11-0.59); #Neutrophils 7.3 thou/uL (1.40-6.50); %Basophils 0.6 % (0.0-1.0); %Eosinophils 1.4 % (0.0-10.0); %Lymphocytes 13.1 % (21.0-51.0); %Monocytes 11.9 % (0.0-10.0); %Neutrophils 72.9 % (42.0-75.0); Hemoglobin 12.4 g/dL (12.0-16.0); Mean Corpuscular HGB CONC 33.4 g/dL (32.0-36.0); Mean Corpuscular Hemoglobin 31.8 pg (27.0-31.0); Mean Corpuscular Volume 95.3 fL (78.0-98.0); Mean Platelet Volume 6.7 fL (7.4-10.4); Platelet Count 211 thou/uL (130-400); RBC Distribution Width 13.6 % (11.5-14.5); Red Blood Cell (RBC) Count 3.89 mill/uL (4.20-5.40)
[2019-12-14] MEDS ORDERED: Vancomycin 1 GM/200 ML BAG ONE (23:39)
[2019-12-15 02:10] VITALS: BMI 21.6
[2019-12-15] MEDS ORDERED: Calcium Carbonate 500 MG ChewTAB PO PRN (02:52)
[2019-12-15] MEDS ORDERED: Senokot S 8.6-50 MG TAB PO PRN (02:52)
[2019-12-15] MEDS ORDERED: HumaLOG 300 UNITS/3 ML VIAL SC PRN (02:52)
[2019-12-15] MEDS ORDERED: Dextrose 50% Abboject 50 ML SYRINGE SLOW IVP PRN (02:52)
[2019-12-15] MEDS ORDERED: Guaifenesin DM 100-10/5 ML UDCUP PO PRN (02:52)
[2019-12-15] MEDS ORDERED: Ondansetron PF 4 MG/2 ML Vial IVP PRN (02:52)
[2019-12-15] MEDS ORDERED: Dextrose 5% in Water 1,000 ML IV PRN (02:52)
[2019-12-15] MEDS ORDERED: Bisacodyl 10 MG SUPP PR PRN (02:52)
--- NOTE | 2019-12-15 04:00 | HP ---
REASON FOR ADMISSION: Fever, recent Strep agalactiae bacteremia to rule out COVID, possible UTI. HISTORY OF PRESENTING ILLNESS: Please note majority of this history is obtained by talking to ER physician as the patient is not fully oriented. She apparently had fever at home and was not feeling right. She had dialysis done and developed chills soon after. EMS was summoned, and the patient was brought here. On arrival, had a temperature of 101.9 degrees. She recently finished a course of vancomycin for Strep agalactiae bacteremia last month. No current cough or expectoration. No complaints of chest pain, palpitations, or PND. The patient in fact has a new appointment that she has set up with a specialist sometime next week for psoriasis. PAST MEDICAL AND SURGICAL HISTORY: End-stage renal disease, on hemodialysis; hypertension; diabetes mellitus type 2; autoimmune cirrhosis; coronary artery disease; history of CVA; CABG, 4 vessels; hysterectomy; right ankle surgery; prior history of ablation; right upper extremity dialysis access procedures. CURRENT MEDICATIONS: The patient is on, 1. Ferrous sulfate 65 mg daily. 2. Hydroxyzine 10 mg p.o. 3 times daily p.r.n. 3. Levothyroxine 88 mcg p.o. daily. 4. Coreg 6.25 mg twice daily. 5. Xifaxan 550 mg p.o. twice daily. ALLERGIES: NAPROSYN, CEFTRIAXONE, ACETAMINOPHEN, HYDROCODONE, AND MEROPENEM. PERSONAL HISTORY: Does not abuse alcohol or drugs. No history of smoking. Lives with her . FAMILY HISTORY: Cannot be accurately obtained as patient is not fully oriented. CODE STATUS: Presumed to be full. REVIEW OF SYSTEMS: CONSTITUTIONAL: Negative for weight loss or gain, ability to conduct usual activities. SKIN: Negative for rash, itching. EYES: Negative for double vision, pain. ENT/MOUTH: Negative for nose bleeding, neck stiffness, pain, tenderness. CARDIOVASCULAR: Negative for palpitations, dyspnea on exertion, orthopnea. RESPIRATORY: Negative for shortness of breath, wheezing, cough, hemoptysis, fever or night sweats. GASTROINTESTINAL: Negative for poor appetite, abdominal pain, heartburn, nausea , vomiting, constipation, or diarrhea. GENITOURINARY: Negative for urgency, frequency, dysuria, nocturia. MUSCULOSKELETAL: Negative for pain, swelling. NEUROLOGIC/PSYCHIATRIC: Negative for anxiety, depression. ALLERGY/IMMUNOLOGIC: Negative for skin rash, bleeding tendency. PHYSICAL EXAMINATION: GENERAL: The patient is a 79-year-old female, who is currently not in any acute distress. VITAL SIGNS: Blood pressure 124/56, pulse 110 per minute, respiratory rate 18 per minute, temperature 101.9 degrees Fahrenheit, saturating 97% on room air. NECK: Supple. No elevated JVD. HEENT: Eyes; extraocular muscles intact. Pupils are reacting to light. Oral cavity, mucous membranes are dry. No exudates or congestion. CARDIOVASCULAR: S1 and S2 heard. Regular rhythm. RESPIRATORY: Air entry, 1+ bilateral. No rales or rhonchi. ABDOMEN: Soft. Bowel sounds heard. No tenderness, rigidity, or guarding. EXTREMITIES: No peripheral edema or calf tenderness. VASCULAR: Peripheral pulses 1+ bilateral. No ischemic ulcerations or gangrene. CENTRAL NERVOUS SYSTEM: No gross focal motor deficits noted. The patient is alert and awake, but is not fully oriented. PSYCHIATRIC: No obvious hallucinations or delusions. SKIN: The patient has changes suggestive of extensive psoriasis. DIAGNOSTIC AND LABORATORY DATA: Chest x-ray done shows no acute infiltrate. Has dialysis catheter on the right chest. White count of 10, hemoglobin and hematocrit 12 and 37, platelet count 211, with 72% neutrophils, 13% lymphocytes, MCV is 95. Sodium 131, serum bicarb 25, BUN 15, creatinine 2.4, serum glucose 226. AST 52 , ALT 31, alkaline phosphatase 193, total bilirubin 0.6, albumin is 3.3. UA shows signs of UTI. EKG done shows sinus tachycardia at 103 beats per minute. There is Q- wave seen in leads II, III, aVF, and poor R-wave progression. CLINICAL IMPRESSION AND PLAN: The patient will be admitted to medical floor for a fever with the recent diagnosis of Strep agalactiae bacteremia and finishing a course of vancomycin. Blood and urine cultures have been obtained in the ER. COVID PCR has also been obtained. She has received a dose of vancomycin in the ER. We will consult Dr. Isabel for Infectious Disease. The patient has a fistula placed during her last hospitalization here on the by Dr. Young. If this is mature likely, then her dialysis catheter can come out. We will await Dr. Isabel and Nephrology opinion. We will consult Dr. Russo, her package sealer as well. We will continue carvedilol, Synthroid, rifaximin as before. She will be on Humalog moderate sliding scale coverage. PT and OT evaluations for early mobilization. Job ID: [id number] MTDD
[2019-12-15] MEDS: Levothyroxine Sodium 88 MCG TAB PO SCH (04:17)
[2019-12-15 05:43] LABS: Band 11 % (5-11); Eosinophils 1 % (0-10); Hemoglobin 12.1 g/dL (12.0-16.0); Lymphocytes 14 % (21-51); MDiff Complete? YES; Mean Corpuscular HGB CONC 34.3 g/dL (32.0-36.0); Mean Corpuscular Hemoglobin 32.8 pg (27.0-31.0); Mean Corpuscular Volume 95.5 fL (78.0-98.0); Mean Platelet Volume 6.6 fL (7.4-10.4); Monocytes 12 % (0-10); Neutrophil 62 % (42-75); Platelet Count 177 thou/uL (130-400); Platelet Morphology Comment Appears Adequate; RBC Distribution Width 13.7 % (11.5-14.5); Red Blood Cell (RBC) Count 3.69 mill/uL (4.20-5.40); White Blood Cell (WBC) Count 7.6 thou/uL (4.8-10.8)
[2019-12-15 05:45] LABS: Anion Gap 12 mmol/L (10-20); BUN (Urea Nitrogen) 20 mg/dL (9.8-20.1); Calc. Creatinine Clearance 15 mL/min (70-130); Calcium 8.3 mg/dL (7.8-10.44); Carbon Dioxide 25 mmol/L (23-31); Chloride 98 mmol/L (98-107); Estimated GFR-MDRD 16; Glucose 110 mg/dL (83-110); Potassium 4.2 mmol/L (3.5-5.1); Sodium 131 mmol/L (136-145)
--- NOTE | 2019-12-15 08:15 | RAD ---
PORTABLE CHEST: HISTORY: Fever post dialysis. COMPARISON: 11/12/2019 exam. FINDINGS: Right-sided HemoSplit catheter is present. Heart size is enlarged. There are postop sternotomy [facility]. No focal infiltrative process noted. IMPRESSION: No acute changes. POS: MATIAS
[2019-12-15] MEDS: Rifaximin 550 MG TAB PO SCH ×2 (08:26→20:38)
[2019-12-15] MEDS: Carvedilol 6.25 MG TAB PO SCH ×2 (08:26→20:38)
[2019-12-15] MEDS: Heparin 5,000 UNITS/ML VIAL SC SCH ×2 (08:27→20:43)
[2019-12-15] MEDS: Ferrous Sulfate 325 MG TAB PO SCH (08:27)
[2019-12-15] MEDS: HumaLOG 300 UNITS/3 ML VIAL SC PRN (11:41)
[2019-12-15 12:20] LABS: SARS-CoV-2 MS2 Positive; SARS-CoV-2 N Gene Negative; SARS-CoV-2 S Gene Negative; SARS-CoV-2 orf1ab Negative
--- NOTE | 2019-12-15 13:25 | PDOC.HOSPP ---
- Subjective Encounter Date: 12/15/19 Encounter Time: 11:00 Subjective: pt doing well, COVID -ve. pt ahs UIT, and will start CTX. - Objective Vital Signs & Weight: Vital Signs (12 hours) Temp Pulse Resp BP Pulse Ox 12/15/19 11:26 98 12/15/19 08:00 98.0 F 81 16 120/65 98 12/15/19 01:55 98.3 F 81 20 119/56 L 100 Weight Weight 129 lb 12.8 oz I&O: 12/14/19 12/15/19 12/16/19 06:59 06:59 06:59 Intake Total 100 Balance 100 Result Diagrams: 12/15/19 04:44 12/15/19 04:44 Additional Labs: Accuchecks 12/15/19 11:34 POC Glucose 222 H Hospitalist ROS - Medication Medications: Active Medications Generic Name Dose Route Start Last Admin Trade Name Freq PRN Reason Stop Dose Admin Carvedilol 6.25 mg 12/15/19 09:00 12/15/19 08:26 Coreg PO 6.25 mg BID CHAPARRO Administration Ferrous Sulfate 325 mg 12/15/19 09:00 12/15/19 08:27 Feosol PO 325 mg DAILY CHAPARRO Administration Heparin Sodium (Porcine) 5,000 units 12/15/19 09:00 12/15/19 08:27 Heparin SC 5,000 units BID CHAPARRO Administration Insulin Human Lispro 0 units 12/15/19 02:52 12/15/19 11:41 Humalog SC 4 units .MODERATE SLIDING SC PRN Administration Moderate Correctional Scale Levothyroxine Sodium 88 mcg 12/15/19 06:00 12/15/19 04:17 Synthroid PO 88 mcg 0600 CHAPARRO Administration Pantoprazole Sodium 40 mg 12/15/19 09:00 12/15/19 08:26 Protonix PO 40 mg DAILY CHAPARRO Administration Rifaximin 550 mg 12/15/19 09:00 12/15/19 08:26 Xifaxan PO 550 mg BID CHAPARRO Administration - Exam General Appearance: NAD, awake alert Eye: PERRL Neck: supple Heart: RRR Respiratory: CTAB, normal chest expansion Gastrointestinal: soft, normal bowel sounds Neurological: no focal deficits Hosp A/P - Plan COIVD neg recent hx of Strep agalactiae bacteremia UTI w.. cx GNR -empiric abx -ID c/s'd ESRD HD-- recent AVF placement - cr 2.8 -dr. Russo c/'std. Mild Hyponatremia - fw am lab, d/t CKD. DVT ppx - heparin Full code.
--- NOTE | 2019-12-15 20:33 | CON ---
DATE OF CONSULTATION: 12/15/2019 SERVICE: Nephrology. SUBJECTIVE: A 79-year-old female with end-stage renal disease due to hepatorenal syndrome, admitted due to acute onset of fever and chills associated with generalized weakness and ill feeling. Symptoms reportedly started after hemodialysis on December 13. Of note, the patient had a similar presentation about a month ago when she was found to have a Strep Agalactiae bacteremia from unclear source. The source of infection was considered to be either due to tunneled dialysis catheter or cellulitis from the skin. The patient was treated with appropriate antibiotics and subsequently treated for further 2 weeks with IV vancomycin after dialysis, which was completed about a week ago. The patient has been otherwise unremarkable, feeling well and eating well prior to onset of symptoms. There was no associated nausea, vomiting, or diarrhea. The patient also denied any skin redness or swelling. The patient has a skin rash related to psoriasis, which has not changed in recent times. Denied headache, focal weakness, confusion, change in appetite, abdominal pain, or leg pain. Fever has subsided since admission. The patient was started on broad-spectrum antibiotics on admission yesterday, December 14, 2019. OBJECTIVE: VITAL SIGNS: Temperature 97.6, pulse 65, respiratory rate 16, SpO2 of 100% on room air, and blood pressure is 119/67. GENERAL: Comfortable, elderly female, in no obvious distress. Afebrile, anicteric, and acyanotic. HEENT: Normocephalic and atraumatic. Oral mucosa is moist. NECK: Supple with no obvious JVD. CARDIOVASCULAR: Regular rhythm and rate with normal heart sounds 1 and 2. Soft systolic murmur noted. RESPIRATORY: Fair air entry bilaterally with no obvious crackle or rhonchi or use of accessory muscles. GI: Full, soft, nontender, nondistended with normal bowel sounds. MUSCULOSKELETAL: Left cubital fossa AV fistula with good thrill as well as left wrist dressing noted. Right IJ tunneled dialysis catheter noted with no obvious exit wound drainage or erythema or fluctuance of the tunnel. SKIN: Scattered papules with some silvery scale all over the body noted. No obvious edema appreciated. BIRTH CERTIFICATE CLERK: Conscious and alert and oriented x3 with appropriate mental status. Some memory lapses noted. No tremor or asterixis is appreciated. DIAGNOSTIC DATA: CBC today showed WBC count of 7.6, hemoglobin of 12.1, MCV of 95.5, platelets of 177. On presentation yesterday, WBC was 10, hemoglobin 12.4 , and platelets 211. Chemistry today showed sodium 131, potassium 4.2, chloride 98, CO2 of 25, BUN 20 , creatinine 2.87, calcium 8.3, glucose 110. Of note, on presentation on December 13, sodium was 131, potassium 4.8, chloride 97, CO2 of 25, BUN 15, creatinine 2.40, glucose 226, calcium 8.5, total bilirubin 0.6, AST 52, ALT 31, alkaline phosphatase 193, total protein 7.8, albumin 3.3. Urinalysis on presentation on December 13 showed yellow turbid urine with pH of 6.0, specific gravity of 1.014, urine protein of 100, normal glucose, trace ketone, 2 + blood, negative nitrite and bilirubin, leukocyte esterase was 500. Microscopy showed 7 to 10 rbc's and greater than 50 wbc's with 4+ bacteria. COVID-19 PCR was negative. ASSESSMENT: 1. Acute febrile illness: This is concerning for occult bacterial infection with possible source of infection being the tunneled dialysis catheter. UTI is another concern. The patient denied abdominal pain, cough, shortness of breath, leg swelling, or skin infection. He just completed treatment with IV vancomycin after dialysis. He was recently diagnosed with Streptococcus Agalactiae bacteremia. 2. Possible tunneled dialysis catheter associated infection. 3. Possible UTI 4. End-stage renal disease, on hemodialysis. 5. Hepatorenal syndrome. The patient makes little or no urine currently. 6. Hypertension: Control is acceptable. 7. Electrolytes: Acceptable. The patient had hemodialysis yesterday, December 13. 8. Volume status: The patient is euvolemic or close to it. PLAN: 1. Antibiotics as per primary attending. 2. We will plan on dialyzing the patient tomorrow. 3. We will also get General Surgery consult with a view to removing the tunneled dialysis catheter after hemodialysis tomorrow. Infectious Disease consult has been consulted. We will await their input. I will recommend removal of tunneled dialysis catheter after hemodialysis tomorrow and plan on re-insertion of tunneled dialysis catheter on Thursday or Thursday as AV fistula is not yet mature at this point. We will continue other treatments. Care plan was discussed with the patient, who verbalized understanding. Further treatment to follow depending on hospital course. Job ID: [id number] MTDD
--- NOTE | 2019-12-15 21:09 | CON ---
DATE OF CONSULTATION: 12/15/2019 REASON FOR CONSULTATION: Fever. HISTORY OF PRESENT ILLNESS: A 79-year-old patient, who has a history of liver cirrhosis possibly steatohepatitis, coronary artery disease, and type 2 diabetes, who developed hepatorenal syndrome and had to be started on hemodialysis. She had a groin catheter at the beginning and it has been transitioned to a right IJ tunneled position catheter on July 01, 2019. The AV fistula placement has not yet been carried out and anyway, so in October 2019, she had group B Streptococcus bacteremia. The patient has chronic plaque psoriasis and we felt that group B strep bacteremia presumably was from skin source and she was treated with IV vancomycin via sliding scale and now she returns because of recrudescence of fever. This is about approximately a month after the last discharge. The patient did not have any respiratory symptoms. No abdominal pain. No genitourinary symptoms. No joint symptoms or back pain. She has had blood culture submitted again. She had a urine culture with a gram-negative fabby. Other findings included white cell count 10.0, hemoglobin 12.4, and platelets 211 with 72% neutrophils and 13% lymphocytes. The creatinine is 2.4 and 2.8 and alkaline phosphatase 193. Albumin 3.3. Currently, Ms. Sung is lying in bed. She is feeling better. Denies any symptoms in a 10-point review, except that she has the need to urinate at the moment and to have a bowel movement, she took some laxatives. PAST MEDICAL HISTORY: Type 2 diabetes, steatohepatitis with end-stage liver disease, hepatorenal syndrome with end-stage kidney disease on hemodialysis through a tunneled catheter, psoriasis, coronary artery disease, ischemic cardiomyopathy, hysterectomy, ankle fracture, cardiac ablation, and group B strep bacteremia recently identified, treated through dialysis, administered vancomycin. SOCIAL HISTORY: Never smoker. Lives in the area with . ALLERGIES: CEFTRIAXONE, HYDROCODONE, AND NAPROXEN. FAMILY HISTORY: Diabetes type 2. CURRENT MEDICATIONS: Includes; 1. Tums. 2. Coreg. 3. Feosol. 4. Glucagon. 5. Atarax. 6. Insulin. 7. Lactulose. 8. Synthroid. 9. Zofran. 10. Protonix. 11. Xifaxan. PHYSICAL EXAMINATION: VITAL SIGNS: She has been afebrile here in the hospital. BP 130/62, pulse 62, respirations 18, and O2 saturation 100. SKIN: Remarkable for the lesions of psoriasis in the upper extremities, chest, and in lower extremities. She has a tunneled catheter in the right IJ position. She appears in no distress. She has no lymphadenopathy. HEENT: Ocular movements conjugate. Oral cavity, she has no deering teeth. NECK: Supple. LUNGS: Symmetric clear breath sounds. HEART: S1 and S2. Regular rate. No S3 or S4. ABDOMEN: Soft, not distended or tender. No ascites. No bladder distention. EXTREMITIES: No joint inflammatory activity. She moves extremities equally. No edema. Pulses 1+ in dorsalis pedis. NEUROLOGIC: She is awake, oriented, follows commands. Speech is normal. Good recollection. LABORATORY DATA: White cell count 10 and 7.6, hemoglobin 12.4, platelets 211, and 72% neutrophils and now 62% neutrophils. Creatinine is 2.4, AST 52, ALT 31, alkaline phosphatase 193, and albumin 3.3. WBC count is greater than 50 in the urinalysis. COVID was not detected. IMAGING: We have a chest x-ray with no acute changes. ASSESSMENT: Psoriasis, steatohepatitis with end-stage liver disease, hepatorenal syndrome with end-stage renal disease, recent episode of group B strep bacteremia possibly from skin source, cardiomyopathy ischemic, and development of fever of uncertain etiology. DISCUSSION: Differential diagnosis includes bacteremia from gastrointestinal source of translocation associated with end-stage liver disease/cirrhosis. Bacteremia due to colonization of the hemodialysis catheter, not yet disclosed or urinary tract infection or an alternate source. The post test likelihood of COVID is low. The patient will continue to be monitored in terms of her blood cultures. She is not on antimicrobial therapy at this point other than rifaximin. I think she had the vancomycin administered yesterday, so she still has vancomycin in her system. Her last echocardiogram is from 11/14 and she had an EF 55% to 60% and moderate to severe tricuspid regurg and depending on clinical findings and lab results, we may have to revisit her cardiac structures, for example, if her blood cultures turn positive for the group B strep, then we will have to either repeat the echo or remove the dialysis catheter or both. If the blood cultures remain negative and she remains afebrile, then discharge planning would be the next step. Job ID: [id number]
[2019-12-16] MEDS: Levothyroxine Sodium 88 MCG TAB PO SCH (05:32)
[2019-12-16] MEDS: Ferrous Sulfate 325 MG TAB PO SCH (07:58)
[2019-12-16] MEDS: Rifaximin 550 MG TAB PO SCH ×2 (07:58→20:46)
[2019-12-16] MEDS: Heparin 5,000 UNITS/ML VIAL SC SCH ×2 (08:00→20:47)
[2019-12-16] MEDS ORDERED: Heparin 10,000 UNITS/ 10 ML VIAL ONE (09:51)
[2019-12-16] MEDS: hydrOXYzine 10 MG TAB PO PRN ×2 (09:56→20:49)
--- NOTE | 2019-12-16 13:48 | PDOC.HOSPP ---
- Subjective Encounter Date: 12/16/19 Encounter Time: 10:50 Subjective: bl daisy 1/2 positive and u cx serratia gp. no sux intervnetion for dialysis port. pt is doing well; spouse at bedside. - Objective Vital Signs & Weight: Vital Signs (12 hours) Temp Pulse Resp BP BP BP Pulse Ox 12/16/19 11:00 97.4 F L 61 18 125/71 100 12/16/19 08:00 98 12/16/19 07:44 97.7 F 63 16 94/56 L 98 12/16/19 04:00 97.3 F L 61 18 106/58 L 99 Weight Weight 129 lb 12.8 oz I&O: 12/15/19 12/16/19 12/17/19 06:59 06:59 06:59 Intake Total 100 390 Balance 100 390 Result Diagrams: 12/15/19 04:44 12/15/19 04:44 Additional Labs: Accuchecks 12/16/19 12/16/19 12/15/19 11:35 05:35 19:55 POC Glucose 201 H 97 210 H 12/15/19 16:13 POC Glucose 125 H Hospitalist ROS - Medication Medications: Active Medications Generic Name Dose Route Start Last Admin Trade Name Freq PRN Reason Stop Dose Admin Carvedilol 6.25 mg 12/15/19 09:00 12/15/19 20:38 Coreg PO 6.25 mg BID CHAPARRO Administration Ferrous Sulfate 325 mg 12/15/19 09:00 12/16/19 07:58 Feosol PO 325 mg DAILY CHAPARRO Administration Heparin Sodium (Porcine) 5,000 units 12/15/19 09:00 12/16/19 08:00 Heparin SC 5,000 units BID CHAPARRO Administration Hydroxyzine HCl 10 mg 12/15/19 02:52 12/16/19 09:56 Atarax PO 10 mg TID PRN Administration Itching Insulin Human Lispro 0 units 12/15/19 02:52 12/15/19 11:41 Humalog SC 4 units .MODERATE SLIDING SC PRN Administration Moderate Correctional Scale Lactulose 30 gm 12/15/19 15:00 12/16/19 08:00 Lactulose PO Not Given TID CHAPARRO Levothyroxine Sodium 88 mcg 12/15/19 06:00 12/16/19 05:32 Synthroid PO 88 mcg 0600 CHAPARRO Administration Pantoprazole Sodium 40 mg 12/15/19 09:00 12/16/19 07:58 Protonix PO 40 mg DAILY CHAPARRO Administration Rifaximin 550 mg 12/15/19 09:00 12/16/19 07:58 Xifaxan PO 550 mg BID CHAPARRO Administration - Exam General Appearance: NAD, awake alert Eye: PERRL ENT: normocephalic atraumatic Neck: supple Heart: RRR, normal peripheral pulses Respiratory: CTAB, normal chest expansion Gastrointestinal: soft, normal bowel sounds Extremities: 2+ LE edema Neurological: no focal deficits Psychiatric: A&O x 3 Hosp A/P - Plan COIVD neg recent hx of Strep agalactiae bacteremia UTI w.. cx GNR--serratia gp---sensi to cipro -- renally dose 250 mg on thu-/ thu bl daisy 1/ +ve for GPC. --repeating the culture again and if neg for 24 hrs, will check w.. ID prior to dispo. -ID c/s'd ESRD HD-- recent AVF placement - cr 2.8 -dr. Russo c/'std. Mild Hyponatremia - fw am lab, d/t CKD. --am lab -- still pending-- orders present for series. DVT ppx - heparin Full code.
[2019-12-16] MEDS ORDERED: Cipro 250 MG TAB PO SCH (14:00)
[2019-12-16] MEDS: Carvedilol 6.25 MG TAB PO SCH ×2 (14:31→20:46)
[2019-12-16] MEDS: Cipro 250 MG TAB PO SCH (14:32)
--- NOTE | 2019-12-16 17:02 | PRG ---
DATE OF SERVICE: 12/16/2019 SERVICE: Nephrology. SUBJECTIVE: A 79-year-old female with end-stage renal disease, on hemodialysis, admitted due to acute onset of fever and chills. The patient had a similar problem about 4 weeks ago and was found to have Strep agalactiae bacteremia, which was treated appropriately with resolution. The patient reports feeling back to normal. Denied nausea, vomiting, abdominal pain, chest pain, cough, or dysuria. Fever has subsided. OBJECTIVE: VITAL SIGNS: Temperature 97.4, pulse 61, respiratory rate 18, SpO2 is 100 on room air, blood pressure is 125/71. GENERAL: Comfortable elderly female, in no obvious distress. Afebrile. Anicteric. Acyanotic. HEENT: Normocephalic, atraumatic. Oral mucosa is moist. NECK: Supple with no JVD. CARDIOVASCULAR: Regular rhythm and rate with normal heart sounds 1 and 2. RESPIRATORY: Fair air entry bilaterally with few transmitted breath sounds, but no obvious crackle or rhonchi or use of accessory muscles. GI: Full, soft, nontender, nondistended with normal bowel sounds. MUSCULOSKELETAL: Right IJ tunneled dialysis catheter noted with no obvious drainage, fluctuance seen around this tunnel. Left cubital fossa, AV fistula with thrill noted. Trace edema of the ankles bilaterally noted, but there was no erythema. SKIN: Scattered plaques with silvery scale all over the body noted. No erythema or open wound noted. INSPECTOR SALVAGE: Conscious and alert and oriented x3 with appropriate mental status. Cranial nerves 2 through 12 are grossly intact. Memory lapse is noted. ASSESSMENT: 1. Acute febrile illness: Etiology is unclear. Differentials remain catheter-associated infection and UTI. Urine culture so far is positive growing Serratia. The patient had defervesced. Blood cultures so far no growth. 2. Presumed urinary tract infection. 3. Possible catheter-associated bloodstream infection. The patient had a positive blood culture of unclear source 4 weeks ago and now had repeat febrile illness. If blood cultures remain negative blood cultures; however, are not consistent with catheter-associated infection. 4. End-stage renal disease due to hepatorenal syndrome on hemodialysis on Thursday, Thursday, Thursday. 5. History of hypertension, on Coreg. The patient had low blood pressure earlier on and antihypertensives were held. 6. Anemia in chronic kidney disease. PLAN: We will dialyze the patient for 3-1/2 hours with 3K bath as tolerated. UF as tolerated will be provided. In view of the negative blood culture so far and positive urine culture suggestive of urinary tract infection as the source of this febrile illness, we will not be removing tunneled dialysis catheter at least for now. I have discussed this case with the Infectious Diseases specialist as well as general surgeon and the primary attending. I also discussed with the patient and the spouse at the bedside I need to hold off with removal of the tunneled dialysis catheter for now. We will await blood culture results. Further treatment to follow depending on hospital course. Antibiotics as per primary attending and Infectious Diseases. Job ID: [id number]
--- NOTE | 2019-12-16 17:49 | PRG ---
DATE OF SERVICE: 12/16/2019 SUBJECTIVE: Ms. Sung is in no distress. She denies any respiratory symptoms. No abdominal pain and no genitourinary symptoms. She has a chronic skin condition. OBJECTIVE: VITAL SIGNS: Showed normal temperature, BP 140/75, pulse 72, respirations 18, and O2 saturation 96. SKIN: Unchanged with psoriatic lesions. LUNGS: Symmetric air entry. HEART: S1 and S2 regular rate. ABDOMEN: Soft, not distended. LABORATORY DATA: White cell count 7.6, hemoglobin 12, platelets 177 with normal differential. She does have some decrease in total lymphocytes percentage, but total numbers normal and creatinine 2.87. COVID was not detected. Serratia marcescens isolated from urine, and there is a gram-positive cocci, 1/2 blood cultures, likely a contaminant. Awaiting on the final identification of the organism. ASSESSMENT AND DISCUSSION: Psoriasis; steatohepatitis with end-stage liver disease; hepatorenal syndrome with end-stage renal disease; recent episode of group B Streptococcus bacteremia, possibly from skin source; ischemic cardiomyopathy, now with fever of uncertain etiology. We do not have unequivocal proof that the catheter is colonized. Again, we are still awaiting on the final identification of the organism isolated from the cultures, but that was a sample from the right hand. This is more likely to represent contamination of the sample. So, I believe it is reasonable from practical standpoint to discharge patient and follow up in the clinic. If she continues having those episodes of fever, one could consider Karius test, which is a next generation sequencing test, which has good and enhanced sensitivity to identify pathogens in the blood stream. Job ID: [id number]
--- NOTE | 2019-12-16 18:17 | CON ---
DATE OF CONSULTATION: HISTORY OF PRESENT ILLNESS: Ms. Sung is a 79-year-old female, admitted with bacteremia. Cultures of urine reveal Serratia. Blood cultures 1 of 2 gram-positive cocci, the other blood cultures negative. The patient has end-stage renal disease, on dialysis Thursday, Thursday, and Thursday at [facility]. I initially established dialysis access in June with a hemodialysis catheter, right IJ cuffed tunneled. She presented later time for hospitalization on 11/16, and Dr. Young in my absence placed a left upper arm fistula. Exploration of the wrist found the cephalic vein to be inadequate probably due to IV access. After exploration of the more proximal vein in the forearm, this did not work out and a fistula formed to the antecubital fossa. The cephalic vein accepted coronary dilators from a 3 mm, both cephalic and basilic vein. The cephalic vein at the upper arm had a stenosis just above the bifurcation. Evaluation of her fistula today reveals the cephalic vein is inadequate. I would recommend a contrast venogram and fistulogram study. I suspect she will need a basilic vein transposition fistula for a functioning fistula. I was initially consulted considering that she might need removal of her hemodialysis catheter, but on further consideration, Dr. Russo and Dr. Isabel have decided to leave her hemodialysis catheter and that her bacteremia is probably a urosepsis. ALLERGIES: NSAIDS, ROCEPHIN, AND HYDROCODONE. PAST MEDICAL HISTORY: 1. Autoimmune cirrhosis. 2. Recurrent hepatic encephalopathy. 3. Metabolic syndrome. 4. Morbid obesity. 5. Diabetes mellitus, type 2. 6. Hypertension. 7. Psoriasis. 8. Coronary artery disease. 9. Overall deconditioning. PAST SURGICAL HISTORY: 1. Coronary artery bypass grafting. 2. Hysterectomy. 3. Ankle surgery. 4. Cardiac ablation. 5. Liver biopsy. 6. Hemodialysis catheter. 7. Left arm fistula as described above. SOCIAL HISTORY: The patient lives with her family. MEDICATIONS: Include: 1. Amlodipine. 2. Aspirin. 3. Iron. 4. Calcium. 5. Synthroid. 6. Hydralazine. 7. Paroxetine. 8. Aldactone. 9. Coreg. 10. Lactulose. REVIEW OF SYSTEMS: Noncontributory otherwise. FAMILY HISTORY: Otherwise noncontributory. PHYSICAL EXAMINATION: VITAL SIGNS: Height 5 feet 5 inches, 129 pounds, and 21 BMI. HEAD, EARS, EYES, NOSE, AND THROAT: Unremarkable. LUNGS: Clear to auscultation. CARDIAC: Regular rate and rhythm without murmur or gallop. ABDOMEN: Soft. EXTREMITIES: Unremarkable. Left arm fistula under developed cephalic vein, I could not palpate a more proximal cephalic vein, probably main outflow is the basilic vein. Good thrill audible. Good bruit audible. ASSESSMENT AND PLAN: End-stage renal disease. Continue to use her dialysis catheter. We will obtain a fistulogram of her left arm, would consider future transposition fistula to progress towards getting rid of her catheter. We will await the content of the fistulogram study, which can be performed this hospitalization prior to discharge or as an outpatient. Job ID: [id number]
[2019-12-17 06:03] LABS: Anion Gap 11 mmol/L (10-20); BUN (Urea Nitrogen) 21 mg/dL (9.8-20.1); Calc. Creatinine Clearance 13 mL/min (70-130); Calcium 7.6 mg/dL (7.8-10.44); Carbon Dioxide 27 mmol/L (23-31); Chloride 100 mmol/L (98-107); Estimated GFR-MDRD 14; Glucose 98 mg/dL (83-110); Potassium 4.4 mmol/L (3.5-5.1); Sodium 134 mmol/L (136-145)
[2019-12-17] MEDS: Levothyroxine Sodium 88 MCG TAB PO SCH (06:18)
[2019-12-17] MEDS: Ferrous Sulfate 325 MG TAB PO SCH (08:33)
[2019-12-17] MEDS: Rifaximin 550 MG TAB PO SCH (08:34)
[2019-12-17] MEDS: Carvedilol 6.25 MG TAB PO SCH (08:35)
[2019-12-17] MEDS: Heparin 5,000 UNITS/ML VIAL SC SCH (08:40)
--- NOTE | 2019-12-17 11:19 | PRG ---
DATE OF SERVICE: 12/17/2019 SERVICE: Nephrology. SUBJECTIVE: A 79-year-old female, seen in followup for end-stage renal disease and possible catheter-associated bloodstream infection. The patient was admitted due to acute onset of fever, chills, and ill feeling. Started with antibiotics with resolution of symptoms. The patient feels back to baseline. She desires to go home today. Last hemodialysis was yesterday, which was well tolerated. OBJECTIVE: VITAL SIGNS: Temperature 97.7, pulse 65, respiratory rate 16, SpO2 of 99% on room air, blood pressure is 95/54. GENERAL: Comfortable elderly female, in no obvious distress. Afebrile. Anicteric. Acyanotic. HEENT: Normocephalic and atraumatic. Oral mucosa is moist. NECK: Supple with no JVD. CARDIOVASCULAR: Regular rhythm and rate with normal heart sounds 1 and 2. RESPIRATORY: Good air entry bilaterally with no crackle or rhonchi or use of accessory muscles. GI: Full, soft, nontender, and nondistended with normal bowel sounds. MUSCULOSKELETAL: Right IJ tunneled dialysis catheter and left cubital fossa AV fistula with thrill noted. No edema or erythema appreciated. SKIN: Scattered papules and plaques with silvery scale-like desquamation noted all over the body and extremities. PERMASTONE INSTALLER: Conscious and alert. Oriented x3 with appropriate mental status. Cranial nerves 2 through 12 are grossly intact. No asterixis or tremor noted. DIAGNOSTIC DATA: Chemistry today showed sodium 134, potassium 4.4, chloride 100, CO2 of 27, BUN 21, creatinine 3.26, and calcium 7.6. ASSESSMENT: 1. Acute febrile illness. Most likely due to urinary tract infection. Subsided, and fever has defervesced. The patient feels back to baseline. 2. Suspected catheter-associated bloodstream infection. This seems unlikely. The patient had a recent group B strep bacteremia about 4 weeks ago, which was treated appropriately with antibiotics. Positive blood culture obtained seems to be skin contaminant. Blood cultures grew Micrococcus and Kocuria in 1 out of 2 bottles, and this is considered contaminant. 3. Presumed urinary tract infection, on treatment. 4. End-stage renal disease secondary to hepatorenal syndrome, on hemodialysis. Last hemodialysis was yesterday. 5. History of hypertension: Blood pressure is on the soft side. Currently, off antihypertensives. 6. Psoriasis. PLAN: Antibiotics as per primary attending. There is no indication for removal of the tunneled dialysis catheter at least for now. The patient can be discharged from Nephrology point of view. Appreciate Infectious Disease input. We will follow the patient up in the outpatient and continue outpatient hemodialysis. Many thanks for involving us in the care of this patient. Job ID: [id number]
--- NOTE | 2019-12-17 11:50 | PQF ---
LASHAWN HOLT PRISCILADIOGO ROBLERO [id number] CLINICAL DOCUMENTATION IMPROVEMENT CLARIFICATION FORM: ICD-10 Updated PLEASE DO AN ADDENDUM TO THE PROGRESS NOTE WITH ANY DOCUMENTATION UPDATES OR ADDITIONS AND CARRY THROUGH TO DC SUMMARY. THANK YOU. DATE: 12/17/2019 ATTN: DR. Leonel ELI Please exercise your independent, professional judgment in responding to the clarification form. Clinical indicators are provided on the bottom of this form for your review. Please check appropriate box(es): [ ] Sepsis due to: URINARY TRACT INFECTION [ ] Sepsis: Not due to :URINARY TRACT INFECTION [ ] Sepsis due to : DIALYSIS CATHETER [ ] Sepsis: Not due to : DIALYSIS CATHETER [ ] Septic Shock [ ] SIRS due to non-infectious process (please specify etiology) [ ] with organ dysfunction [ ] without organ dysfunction [ x ] Other diagnosis ___bacteremia without sepsis [ ] Unable to determine In addition, please specify: Present on Admission (POA): [ ] Yes [ ] No [ x ] Unable to determine For continuity of documentation, please document condition throughout progress notes and discharge summary. Thank You. CLINICAL INDICATORS - SIGNS / SYMPTOMS / LABS / RESULTS AND LOCATION IN MR 12/13 BLOOD CULTURE: PRESUMPTIVE MICROCOCCUS / KOCURIA 12/13 URINE CULTURE: SERRATIA MARCESCENS 12/14 ED REPORT: PRESENTS FOR FEVER POST DIALYSIS , TEMP 101.9, PULSE 111, FINAL ED PHYSICIAN DX : UTI, FEVER, SEPSIS. 12/14 PN (SREEDHAR) A/P : UTI W CX GNR, RECENT HX OF STREP AGALACTIAE BACTEREMIA 12/14 CONSULT (OBI) ASSESSMENT: 1). ACUTE FEBRILE ILLNESS, THIS IS CONCERNING FOR OCCULT BACTERIAL INFECTION W POSSIBLE SOURCE OF INFECTION BEING TUNNELED DIALYSIS CATHETER. UTI IS ANOTHER CONCERN. 2). POSSIBLE TUNNELED DIALYSIS CATHETER ASSOCIATED INFECTION. 3). POSSIBLE UTI 12/15 CONSULT (VARGHESE) I WAS INITIALLY CONSULTED CONSIDERING THAT SHE MIGHT NEED REMOVAL OF HER HEMODIALYSIS CATHETER, BUT NO FURTHER CONSIDERATION. DR. CASON AND DR. DELGADO HAVE DECIDED TO LEAVE HER HEMODIALYSIS CATHETER AND THAT HER BACTEREMIA IS PROBABLY A UROSEPSIS. 12/15 PN (OBI ) ASSESSMENT: ACUTE FEBRILE ILLNESS: ETIOLOGY IS UNCLEAR. DIFFERENTIALS REMAIN CATHETER-ASSOCIATED INFECTION AND UTI. 2) PRESUMED URINARY TRACT INFECTION.3). POSSIBLE CATHETER-ASSOCIATED BLOODSTREAM INFECTION. RISK: ADVANCED AGE ( 79), RECENT HX OF STREP AGALACTIAE BACTEREMIA, DX UTI, ESRD ON HEMODIALYSIS ( PN / GURUSAMY) TREATMENT: VANCOMYCIN IV ( ED/12/13) ID CONSULT ( DANNY / 12/15) BLOOD/URINE CULTURE ( 12/13) THANK YOU! ANIKA (This form is maintained as a part of the permanent medical record) 2014 [employer], [employer]. All Rights Reserved YASMIN [email or web address] [facility]
[2019-12-17] MEDS: HumaLOG 300 UNITS/3 ML VIAL SC PRN (12:15)
[2019-12-17] MEDS: hydrOXYzine 10 MG TAB PO PRN (12:19)
[2019-12-17 12:35] VITALS: BP 111/67; TEMP 97.4
[2019-12-17] MEDS: Cipro 250 MG TAB PO SCH ×2 (13:18→13:20)
--- NOTE | 2019-12-17 14:22 | DIS ---
DATE OF ADMISSION: 12/15/2019 DATE OF DISCHARGE: 12/17/2019 DISCHARGE DIAGNOSES: 1. Recent history of Streptococcus agalactiae bacteremia. 2. Urinary tract infection with gram-negative fabby, Serratia marcescens, sensitive to Cipro. 3. End-stage renal disease, on hemodialysis with recent arteriovenous fistula placement. 4. Mild hyponatremia with sodium level of 134. 5. COVID ruled out. 6. Extensive psoriasis, most notable in her upper thighs and lower abdominal area as well as on her lower back. It is not active currently. CONSULTS: Infectious Disease, Dr. Isabel as well as pocketed spring machine operator, Dr. Russo. General Surgery consult with Dr. Sepulveda. MEDICATIONS: There is no change in her previous home regimen. PHYSICAL EXAMINATION: VITAL SIGNS: On the day of discharge, temperature 97.4, pulse 64, blood pressure 95/54, saturating 100% in the room air. GENERAL: The patient is alert and oriented. Spouse at bedside. Discharge plan was discussed with both of them, agreeable for the plan, and I explained that she will be taking ciprofloxacin for her urinary tract infection for a total of 7 days, but given dialysis patient, she will be getting only Thursday, Thursday, Thursday. The patient and spouse expressed the understanding. 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 She had a right IJ tunneled catheter placed on July 01, 2019. AV fistula has not been used. In October 2019, she had a group B Streptococcus bacteremia. Given her fever, concerned for possibility for tunnelled catheter infection. Blood cultures were negative. However, urinalysis showed infection, and culture grew gram-negative rods, Serratia, sensitive to Cipro. Since fever, there was concern for bacteremia versus colonization of the hemodialysis catheter. Based on the clinical course, this is likely contamination. sepsis ruled out. The patient did not have any further febrile episode, and her white count remained in the normal range. Also, her COVID ruled out. We did give a dose of vancomycin. Her last echo on November 14, showed EF of 55% with severe tricuspid regurgitation. It was thought that Strep bacteremia could be related to contamination from the skin source. However, we are going to treat her urinary tract infection with renally-dosed Cipro for a total of 7 days. The patient has been informed if she had any spike of temperature again, she needs to come back to the ER or call her renal doctor, Dr. Russo. I have discussed with Dr. Russo. Infectious Disease signed off. There was a plan about fistulogram, that can be done either as outpatient. Dr. Sepulveda can be contacted for future study. The patient is stable to go home today. Both Infectious Disease and Renal signed off. DISCHARGE INSTRUCTIONS: ACTIVITY: As tolerated. DIET: Renal diet. FOLLOWUP: Follow up with PCP in 1 week. TIME SPENT: Discharge time took over 35 minutes. Job ID: [id number] MTDD
--- NOTE | 2019-12-18 12:14 | EKG ---
Test Reason : Blood Pressure : / mmHG Vent. Rate : 103 BPM Atrial Rate : 103 BPM P-R Int : 192 ms QRS Dur : 114 ms QT Int : 384 ms P-R-T Axes : 058 025 091 degrees QTc Int : 503 ms Sinus tachycardia Inferior infarct , age undetermined Abnormal ECG Confirmed by ZOHAIB FALLON, ROXI ([id number]), editorial project manager RAAD OLIVARES ([id number]) on 12/18/2019 12:13:40 PM Referred By: Confirmed By:ROXI PENNY MD
== END 2019-12-17 13:21 | disposition home or self-care (01) | DRG 689 ==
LOC: ERS 20:23 → 2SW 12-15 00:11 → T4-B 12-15 15:10
PROVIDERS: ADMIT Internal Medicine; ATTEND Internal Medicine
PROC: 5A1D70Z Performance of Urinary Filtration, Intermittent, Less than 6 Hours Per Day (ICD-10-PCS; principal; 2019-12-15)
PROC: 8E0ZXY6 Isolation (ICD-10-PCS; 2019-12-15)
DX: N39.0 Urinary tract infection, site not specified (principal); N18.6 End stage renal disease; K76.7 Hepatorenal syndrome; R78.81 Bacteremia; E87.1 Hypo-osmolality and hyponatremia; Z20.828 Contact with and (suspected) exposure to other viral communicable diseases; B96.89 Other specified bacterial agents as the cause of diseases classified elsewhere; L40.9 Psoriasis, unspecified; K75.81 Nonalcoholic steatohepatitis (NASH); E11.22 Type 2 diabetes mellitus with diabetic chronic kidney disease; B95.1 Streptococcus, group B, as the cause of diseases classified elsewhere; I07.1 Rheumatic tricuspid insufficiency; I50.9 Heart failure, unspecified; I25.5 Ischemic cardiomyopathy; I11.0 Hypertensive heart disease with heart failure; D63.1 Anemia in chronic kidney disease; K74.69 Other cirrhosis of liver; K72.90 Hepatic failure, unspecified without coma; Z88.1 Allergy status to other antibiotic agents; Z99.2 Dependence on renal dialysis; Z88.8 Allergy status to other drugs, medicaments and biological substances; Z79.899 Other long term (current) drug therapy; Z79.4 Long term (current) use of insulin; Z79.82 Long term (current) use of aspirin; Z95.1 Presence of aortocoronary bypass graft; Z86.73 Personal history of transient ischemic attack (TIA), and cerebral infarction without residual deficits; Z90.710 Acquired absence of both cervix and uterus
CPT/HCPCS: 36415; 36416; 51701; 71045; 80048; 80053; 81003; 81015; 83605; 85025; 87040; 87077; 87086; 87149; 87186; 87635; 90935; 93005; 96365; G0257; J1644; J3370; U0003

== ENCOUNTER 2020-01-10 06:48 | Day surgery (SDC) | payer MEDICARE ==
[2020-01-09 11:32] VITALS: BMI 21.4
--- NOTE | 2020-01-10 08:55 | SPC ---
Angiographic fistulogram left upper extremity Sonographic guided vascular access HISTORY: Renal failure. New dialysis fistula. Evaluate for maturation. FINDINGS: After explaining the procedure and answering all questions, left upper extremity was preppe d and draped in usual sterile fashion. Sterile technique, buffered local anesthesia, sonographic guidance, and a 22-gauge needle were used t o carefully access the left upper extremity dialysis fistula just below the level of the antecubital fossa and just above the arterial anastomosis, directed towards the dominant venous outfl ow of the basilic vein. A 4 [place] micropuncture sheath was placed for imaging. Contrast opacification shows dominant outflow through the basilic vein, with bifurcation at the level of the distal humeral shaft. No significant collaterals are present with routine angiography. The venous outflow and superior vena cava are patent. Reflux angiography shows the arterial anastomosis to be widely patent. Opacification of the antecubit al vein to the cephalic vein shows stricture and occlusion of the cephalic vein at the level of the antecubital fossa. A few small branches of the cephalic vein are present. Catheter was removed and hemostasis obtained using direct pressure. Patient tolerated the procedure w ell and was dismissed in good condition. Fluoroscopy time 1.7 minutes. IMPRESSION : Left upper extremity dialysis fistula is patent with good flow to a dominant basilic vein that bifurc ates at the level of the distal humeral shaft. No significant collaterals. Complete stricture of the cephalic vein at the antecubital fossa.
[2020-01-10] MEDS ORDERED: Prevnar 13-Val Conj/PF 0.5 ML SYRINGE IM ONE (09:00)
[2020-01-10 11:35] VITALS: BP 150/61; TEMP 96.9
[2020-01-10] MEDS ORDERED: Iopamidol 300 61% 100 ML VIAL FS ONE (14:24)
== END 2020-01-10 08:45 | disposition home or self-care (01) ==
LOC: SPEC 06:48
PROVIDERS: ATTEND Specialist
PROC: B51W1ZZ Fluoroscopy of Dialysis Shunt/Fistula using Low Osmolar Contrast (ICD-10-PCS; principal; 2020-01-10)
DX: I13.2 Hypertensive heart and chronic kidney disease with heart failure and with stage 5 chronic kidney disease, or end stage renal disease (principal); E11.22 Type 2 diabetes mellitus with diabetic chronic kidney disease; N18.6 End stage renal disease; I50.9 Heart failure, unspecified; I87.1 Compression of vein; K74.69 Other cirrhosis of liver; M19.90 Unspecified osteoarthritis, unspecified site; J45.909 Unspecified asthma, uncomplicated; I25.10 Atherosclerotic heart disease of native coronary artery without angina pectoris; F32.9 Major depressive disorder, single episode, unspecified; K74.60 Unspecified cirrhosis of liver; L40.9 Psoriasis, unspecified; E88.81 Metabolic syndrome and other insulin resistance; Z86.73 Personal history of transient ischemic attack (TIA), and cerebral infarction without residual deficits; Z79.2 Long term (current) use of antibiotics; Z79.899 Other long term (current) drug therapy; Z88.1 Allergy status to other antibiotic agents; Z88.5 Allergy status to narcotic agent; Z88.6 Allergy status to analgesic agent; Z99.2 Dependence on renal dialysis; Z95.1 Presence of aortocoronary bypass graft; Z95.5 Presence of coronary angioplasty implant and graft; Z79.82 Long term (current) use of aspirin
CPT/HCPCS: 36901; 76937; Q9967

== ENCOUNTER 2020-01-19 06:31 | Outpatient (CLI) | payer MEDICARE, OTHER ==
--- NOTE | 2020-01-19 12:27 | RAD ---
EXAM: Chest 2 views: HISTORY: Preoperative radiograph COMPARISON: 09/25/2018 FINDINGS: There is a normal-sized cardiomediastinal silhouette. Atherosclerotic calcifications are seen in the aorta. The patient is status post sternotomy. A dialysis catheter seen with its tip in superior vena cava. There is no evidence of consolidation, mass, or pleural effusion. The bones are unremark able. IMPRESSION: No evidence of acute cardiopulmonary disease
[2020-01-19 13:59] LABS: #Basophils 0.1 thou/uL (0.0-0.2); #Eosinphils 0.3 thou/uL (0.0-0.7); #Lymphocytes 1.3 thou/uL (1.20-3.40); #Monocytes 0.7 thou/uL (0.11-0.59); #Neutrophils 3.2 thou/uL (1.40-6.50); %Basophils 1.2 % (0.0-1.0); %Lymphocytes 24.1 % (21.0-51.0); %Monocytes 11.8 % (0.0-10.0); Hemoglobin 13.2 g/dL (12.0-16.0); Mean Corpuscular HGB CONC 31.9 g/dL (32.0-36.0); Mean Corpuscular Hemoglobin 31.4 pg (27.0-31.0); Mean Corpuscular Volume 98.4 fL (78.0-98.0); Mean Platelet Volume 6.9 fL (7.4-10.4); Platelet Count 174 thou/uL (130-400); RBC Distribution Width 13.9 % (11.5-14.5); Red Blood Cell (RBC) Count 4.21 mill/uL (4.20-5.40); White Blood Cell (WBC) Count 5.6 thou/uL (4.8-10.8)
[2020-01-19 14:20] LABS: Anion Gap 15 mmol/L (10-20); BUN (Urea Nitrogen) 26 mg/dL (9.8-20.1); Calc. Creatinine Clearance 0 mL/min (70-130); Calcium 8.6 mg/dL (7.8-10.44); Carbon Dioxide 24 mmol/L (23-31); Chloride 96 mmol/L (98-107); Estimated GFR-MDRD 13; Glucose 268 mg/dL (83-110); Potassium 4.3 mmol/L (3.5-5.1); Sodium 131 mmol/L (136-145)
[2020-01-20 12:08] LABS: SARS-CoV-2 MS2 Positive; SARS-CoV-2 N Gene Negative; SARS-CoV-2 S Gene Negative; SARS-CoV-2 by NAA Not Detected (NotDetected); SARS-CoV-2 orf1ab Negative
== END 2020-01-19 06:32 | disposition home or self-care (01) ==
LOC: LABBT 06:31 → SCSRAD 06:32
PROVIDERS: ATTEND Specialist
DX: Z01.818 Encounter for other preprocedural examination (principal); Z11.59 Encounter for screening for other viral diseases; N18.6 End stage renal disease
CPT/HCPCS: 71046; 80048; 85025; 87635; 93005; 93010; U0003

== ENCOUNTER → 2020-01-24 | Day surgery (SDC) | payer MEDICARE ==
[2020-01-17 14:41] VITALS: BMI 24.5
[~2020-01-24] MED LIST: Bupivacaine HCl 0.5%/Epinephrine 1:200,000/PF 30 ml Vial ONE; Bupivacaine PF 0.5% 30 ML VIAL ONE; Fentanyl 100 MCG/2 ML VIAL ONE; Heparin 10,000 UNITS/ 10 ML VIAL ONE; Heparin 5,000 UNITS/ML VIAL ONE; Levofloxacin 500 mg/D5W 100 ml Premix Bag ONE; Lidocaine 1% PF 5 ML VIAL ONE; Lidocaine 1% w/Epinephrine 1:100K 20 ML VIAL ONE; Ondansetron PF 4 MG/2 ML Vial ONE; PHENYLEPHRINE-NS 100 MCG/ML 10 ML SYRINGE ONE; PROPOFOL 20 ML ONE; PROPOFOL 200 MG/20 ML VIAL ONE; Protamine Sulfate 50 MG/5 ML VIAL ONE
--- NOTE | 2020-01-24 06:15 | HP ---
HISTORY OF PRESENT ILLNESS: Sowmya Sung is a 79-year-old female undergoing left arm fistula proximal radial artery inflow/outflow basilic vein, will need a basilic vein fistula, confirmed by fistulogram this morning, performed by Dr. Garza reveals outflow basilic vein. Plan is for basilic vein transposition fistula in left arm on a Thursday outpatient, regional versus general per Anesthesia preference. She will follow up with me in 2 to 3 weeks. She dialyzes on Thursday, Thursday, and Thursday at [facility] followed by Dr. Amezcua. MEDICATIONS: 1. Levothyroxine. 2. Ferrous sulfate. 3. Insulin. 4. Spironolactone. 5. Hydralazine. 6. Carvedilol. 7. Aspirin. 8. Amlodipine. 9. Tramadol. PAST MEDICAL HISTORY: 1. Diabetes. 2. Hypertension. 3. Arthritis. 4. Stroke. 5. Psoriasis. 6. Hyperlipidemia. 7. Refused mammograms/colonoscopies. 8. History of shingles. 9. Cirrhosis, followed by Dr. Escobedo. 10. End-stage renal disease, on maintenance dialysis. PAST SURGICAL HISTORY: 1. ORIF of ankle in 1979. 2. Hysterectomy in 1979. 3. Cardiac catheterization in the past with coronary artery bypass grafting in 2017. 4. Left arm fistula on 11/17/[address] Young. TOBACCO: None. ALCOHOL: None. ALLERGIES: MEROPENEM AND HYDROCODONE, RASH. REVIEW OF SYSTEMS: Noncontributory. PHYSICAL EXAMINATION: GENERAL: The patient arrives to my office in a wheelchair. Her son is with her. VITAL SIGNS: Weight 132 pounds. Height 63 inches. Blood pressure 167/54, heart rate 73, temperature 97.4 degrees. HEAD, EARS, EYES, NOSE, AND THROAT: Unremarkable. LUNGS: Clear to auscultation. CARDIAC: Regular rate and rhythm without murmur or gallop. ABDOMEN: Soft, nontender. EXTREMITIES: Without edema. Left upper extremity, good thrill and bruit around antecubital area. ASSESSMENT AND PLAN: End-stage renal disease, needs basilic vein transposition fistula. We will plan outpatient. Followup in my office in 2 to 3 weeks. Risks and benefits explained. They consent. Job ID: [id number]
[2020-01-24 11:25] LABS: #Basophils 0.1 thou/uL (0.0-0.2); #Eosinphils 0.2 thou/uL (0.0-0.7); #Lymphocytes 1.3 thou/uL (1.20-3.40); #Monocytes 0.7 thou/uL (0.11-0.59); #Neutrophils 2.9 thou/uL (1.40-6.50); %Basophils 1.3 % (0.0-1.0); %Eosinophils 4.5 % (0.0-10.0); %Lymphocytes 25.3 % (21.0-51.0); %Monocytes 13.8 % (0.0-10.0); %Neutrophils 55.1 % (42.0-75.0); Hemoglobin 12.4 g/dL (12.0-16.0); Mean Corpuscular HGB CONC 32.3 g/dL (32.0-36.0); Mean Corpuscular Hemoglobin 31.7 pg (27.0-31.0); Mean Corpuscular Volume 98.3 fL (78.0-98.0); Mean Platelet Volume 6.5 fL (7.4-10.4); Platelet Count 167 thou/uL (130-400); RBC Distribution Width 13.8 % (11.5-14.5); Red Blood Cell (RBC) Count 3.91 mill/uL (4.20-5.40); White Blood Cell (WBC) Count 5.2 thou/uL (4.8-10.8)
[2020-01-24 11:48] LABS: Anion Gap 17 mmol/L (10-20); BUN (Urea Nitrogen) 25 mg/dL (9.8-20.1); Calc. Creatinine Clearance 14 mL/min (70-130); Calcium 8.4 mg/dL (7.8-10.44); Carbon Dioxide 25 mmol/L (23-31); Chloride 100 mmol/L (98-107); Estimated GFR-MDRD 15; Glucose 141 mg/dL (83-110); Potassium 3.5 mmol/L (3.5-5.1); Sodium 138 mmol/L (136-145)
--- NOTE | 2020-01-24 16:34 | OP ---
DATE OF PROCEDURE: 01/24/2020 PREOPERATIVE DIAGNOSES: End-stage renal disease, occluded cephalic vein, and need a basilic vein transposition fistula left arm. POSTOPERATIVE DIAGNOSES: End-stage renal disease, occluded cephalic vein, and need a basilic vein transposition fistula left arm. PROCEDURE PERFORMED: Left arm basilic vein transposition fistula. ANESTHESIA: Regional, TIVA, local of 0.5% Marcaine 30 mL mixed with 1% Xylocaine with epinephrine 20 mL. DESCRIPTION OF PROCEDURE: The patient was taken to the operating room, where under regional anesthesia, left upper extremity were prepared with ChloraPrep and draped in routine fashion. An incision was made from the proximal volar forearm across the antecubital fossa, to the medial upper arm to the axilla, carried down to skin, subcutaneous tissue, deep fascia dissecting the basilic vein dividing branch between 4-0 silk ties and clips. Once dissected free. A [employer] tunneler, 12 mm head used to create a tunnel. The anterior upper arm past antecubital fossa to the axilla. The patient then given 6000 units of heparin intravenously. After adequate circulation time, the basilic vein origin clamped with vascular clamp, divided and brought out into the wound and flushed with heparinized saline solution, were distended nicely, connected to the tunneler, brought through the tunnel, disconnected from the tunnel and then flushed with heparinized saline solution with noting good flow. The cephalic vein stump was distended. Runoff maintained by perforating branch posteriorly. This was dissected free, tied and clipped and divided and the stump of the vein was in good condition supporting the arterial inflow from the proximal radial artery. Outflow was occluded and stump ligated with 2-0 silk ties, divided, spatulated cephalic vein anastomosis created with continuous suture of 6-0 Prolene. Vascular clamps released. There was excellent flow in the fistula. The patient tolerated the procedure well. There was good flow in the fistula was noted. The patient was given 50 mg of protamine intravenously by Anesthesia. Good hemostasis was assured. Surgicel placed in the harvest bed and subcutaneous tissue was approximated with 3-0 Monocryl, skin with nicole. Sterile dressing applied placed. The patient tolerated the procedure well. Job ID: [id number]
== END ==
LOC: SDC 09:58
PROVIDERS: ATTEND Specialist
PROC: 05SC0ZZ Reposition Left Basilic Vein, Open Approach (ICD-10-PCS; principal; 2020-01-24)
DX: I12.0 Hypertensive chronic kidney disease with stage 5 chronic kidney disease or end stage renal disease (principal); E11.22 Type 2 diabetes mellitus with diabetic chronic kidney disease; N18.6 End stage renal disease; M19.90 Unspecified osteoarthritis, unspecified site; L40.9 Psoriasis, unspecified; E78.5 Hyperlipidemia, unspecified; K74.60 Unspecified cirrhosis of liver; Z86.73 Personal history of transient ischemic attack (TIA), and cerebral infarction without residual deficits; Z79.4 Long term (current) use of insulin; Z79.82 Long term (current) use of aspirin; Z79.899 Other long term (current) drug therapy; Z88.1 Allergy status to other antibiotic agents; Z88.5 Allergy status to narcotic agent; Z88.6 Allergy status to analgesic agent; Z95.1 Presence of aortocoronary bypass graft; Z95.2 Presence of prosthetic heart valve; Z99.2 Dependence on renal dialysis
CPT/HCPCS: 36416; 80048; 85025; J0670; J1644; J1956; J2405; J2704; J2720; J3010; S0020

== ENCOUNTER 2020-04-04 21:43 | Emergency (ER) | payer MEDICARE ==
--- NOTE | 2020-04-05 07:21 | RAD ---
PORTABLE CHEST: Date: 04/04/2020 HISTORY: Dialysis port came out from right chest wall. COMPARISON: 12/14/2019 exam. FINDINGS: Heart size is enlarged. Postop sternotomy changes are seen. Lungs are clear of infiltrates. Mild chrome plater helper leoncio-appearing change seen. Right-sided HemoSplit catheter is no longer present. No pneumothorax. IMPRESSION: 1. Cardiomegaly. 2. Right-sided HemoSplit catheter is no longer present. POS: MATIAS
== END 2020-04-05 00:05 | disposition home or self-care (01) ==
LOC: ERS 21:43
DX: T82.42XA Displacement of vascular dialysis catheter, initial encounter (principal); X58.XXXA Exposure to other specified factors, initial encounter
CPT/HCPCS: 71045; 93005

== ENCOUNTER 2020-05-14 11:33 | Inpatient (IN) | payer MEDICARE ==
[2020-05-14 12:34] LABS: #Basophils 0.1 thou/uL (0.0-0.2); #Eosinphils 0.3 thou/uL (0.0-0.7); #Lymphocytes 1.6 thou/uL (1.20-3.40); #Monocytes 0.6 thou/uL (0.11-0.59); #Neutrophils 3.8 thou/uL (1.40-6.50); %Basophils 1.5 % (0.0-1.0); %Eosinophils 4.2 % (0.0-10.0); %Lymphocytes 24.9 % (21.0-51.0); %Monocytes 9.6 % (0.0-10.0); %Neutrophils 59.8 % (42.0-75.0); Hemoglobin 12.1 g/dL (12.0-16.0); Mean Corpuscular HGB CONC 33.9 g/dL (32.0-36.0); Mean Corpuscular Hemoglobin 33.1 pg (27.0-31.0); Mean Corpuscular Volume 97.6 fL (78.0-98.0); Platelet Count 180 thou/uL (130-400); RBC Distribution Width 13.8 % (11.5-14.5); Red Blood Cell (RBC) Count 3.67 mill/uL (4.20-5.40); White Blood Cell (WBC) Count 6.4 thou/uL (4.8-10.8)
[2020-05-14 12:48] LABS: ALT (SGPT) 9 U/L (8-55); AST (SGOT) 27 U/L (5-34); Albumin 3.4 g/dL (3.4-4.8); Alkaline Phosphatase 104 U/L (40-110); Anion Gap 19 mmol/L (10-20); BUN (Urea Nitrogen) 55 mg/dL (9.8-20.1); Bilirubin, Total 0.7 mg/dL (0.2-1.2); CK (CPK) 72 U/L (29-168); Calc. Creatinine Clearance 0 mL/min (70-130); Calcium 8.9 mg/dL (7.8-10.44); Carbon Dioxide 19 mmol/L (23-31); Chloride 102 mmol/L (98-107); Estimated GFR-MDRD 9; Globulin 4.4 g/dL (2.4-3.5); Glucose 130 mg/dL (83-110); Potassium 3.8 mmol/L (3.5-5.1); Protein, Total 7.8 g/dL (6.0-8.3); Sodium 136 mmol/L (136-145)
[2020-05-14 13:19] LABS: CKMB 2.1 ng/mL (0-6.6)
--- NOTE | 2020-05-14 15:57 | RAD ---
PORTABLE CHEST: HISTORY: Dialysis patient, weakness, syncope. COMPARISON: 04/04/2020 study. FINDINGS: Heart size is enlarged with postop sternotomy change and chronic lung changes. No focal infiltrative process. Left axillary stent is present. IMPRESSION: Cardiomegaly. No acute findings. POS: AH
--- NOTE | 2020-05-14 16:51 | CT ---
CT HEAD WITHOUT IV CONTRAST COMPARISON: 06/28/2019 HISTORY: Altered mental status. TECHNIQUE: Axial CT imaging at 5 mm intervals from vertex through skull base without contrast FINDINGS: There is decreased attenuation in the periventricular white matter which is nonspecific but likely re flective of chronic small vessel ischemic changes. Stable low-density focus is seen in the right lentiform nucleus likely due to remote lacunar infarction. There is mild cerebral volume loss. The ventricular system is normal in size, shape, and position for the degree of sulcal atrophy. There is no evidence of an acute infarction, hemorrhage, mass effect, or midline shift. Prominent vascular calcific lesions are seen in the distal vertebral arteries and in the carotid siph ons. Visualized paranasal sinuses are clear. Osseous structures appear intact. IMPRESSION: 1. No acute intracranial abnormality demonstrated. 2. Chronic small vessel ischemic changes and cerebral volume loss.
--- NOTE | 2020-05-14 18:42 | PDOC.HHP ---
Hospitalist HPI - History of Present Illness AMS History of Present Illness: PCP: Chanelle Majority of the H&P was taken from the patient's at bedside due to the patient having mild confusion per the ER report. Patient's reports that she has been generally weak for the past several days. He reports he has had some mild confusion and difficulty ambulating. He reports that he has to help her to the restroom multiple times last night, stating "she kept me up all night". He reports that she gets this way as when she misses her dose of lactulose. He reports that she has missed several doses over the past couple of days. He says she is so tired after hemodialysis, that she skips doses. He reports that she missed her hemodialysis session this morning due to her altered mental status. He denies any recent fall or trauma. No recent illness or fevers. No recent surgeries. No change in her medications. No psychiatric history. Denies any abdominal pain, nausea, vomiting, diarrhea, melena/hematochezia. Denies dysuria or hematuria. Denies chest pain, heart palpitations, lightheadedness or swelling to lower extremities. Denies any shortness of breath, wheezing, cough, or hemoptysis. ED Course: VITAL SIGNS ThuMay 14, 2020 11:37 YASMIN Coffman Lauren BP: 151/49, Pulse: 76, Resp: 18, Temp: 98.4 (Oral), Pain: 0, O2 sat: 100 on (Room Air), Time: 05/14/2020 11:37. VITAL SIGNS ThuMay 14, 2020 13:49 Viridiana [facility] Pulse: 72, Pain: 0, O2 sat: 100 on (Room Air), Time: 05/14/2020 13:49. VITAL SIGNS ThuMay 14, 2020 15:17 YASMIN Mendiola Lacee BP: 175/64, Pulse: 77, Resp: 17, Pain: 0, O2 sat: 100 on (Room Air), Time: 05/14/2020 15:17. VITAL SIGNS ThuMay 14, 2020 16:50 Marlena, Crys HOFFMAN BP: 143/45, MAP: 77, Pulse: 74, Resp: 16, Temp: 97.6 (Oral), Pain: 0, O2 sat: 100 on (Room Air), Time: 05/14/2020 16:50. Medications: lactulose 10 g Oral Acknowledged 17:27 05/14/2020 Hospitalist ROS - Review of Systems All other systems reviewed; all pertinent +/- noted in HPI/Subj - Medication Medications: Aspirin Childrens ThuMay 14, 2020 16:55 YASMIN Mendiola Lacee TABLET, CHEWABLE : Strength - 81 mg : ORAL Patient Dose: 1 tab(s) Oral once a day. carvedilol ThuMay 14, 2020 16:55 YASMIN Mendiola Lacee TABLET : Strength - 6.25 mg : ORAL Patient Dose: 1 tab(s) Oral 2 times a day. ferrous sulfate ThuMay 14, 2020 16:55 YASMIN Mendiola Lacee tablet,delayed release (DR/EC) : Strength - 324 mg (65 mg iron) : ORAL Patient Dose: Unknown. Valisone ThuMay 14, 2020 16:55 YASMIN Mendiola Lacee cream : Strength - 0.1 % : TOPICAL Patient Dose: 1 padmaja Topical once a day. hydrOXYzine HCl oral ThuMay 14, 2020 16:57 YASMIN Mendiola Lacee tablet : Strength - 10 mg : ORAL Patient Dose: 1 tab(s) Oral every 8 hours PRN. lactulose ThuMay 14, 2020 16:58 YASMIN Mendiola Lacee packet : Strength - 10 gram : ORAL Patient Dose: 20 g Oral 2 times a day. Levemir U-100 Insulin ThuMay 14, 2020 16:58 YASMIN Mendiola Lacee solution : Strength - 100 unit/mL : SUBCUTANEOUS Patient Dose: 10 units Subcutaneous once a day (in the morning). levothyroxine oral ThuMay 14, 2020 16:59 YASMIN Mendiola Lacee TABLET : Strength - 75 mcg : ORAL Patient Dose: 1 tab(s) Oral once a day.ON ODD DAYS OF THE MONTH. levothyroxine oral ThuMay 14, 2020 17:01 YASMIN Mendiola Lacee tablet : Strength - 88 mcg : ORAL Patient Dose: 1 tab(s) Oral once a day (in the morning).ON EVEN DAYS OF THE Thu. PARoxetine HCl ThuMay 14, 2020 17:02 YASMIN Mendiola Lacee tablet : Strength - 10 mg : ORAL Patient Dose: 1 tab(s) Oral once a day (in the evening). Kenalog topical ThuMay 14, 2020 17:03 YASMIN Mendiola Lacee lotion : Strength - 0.1 % : TOPICAL Patient Dose: 1 padmaja Topical 2 times a day. Xifaxan ThuMay 14, 2020 17:04 YASMIN Mendiola, Crys tablet : Strength - 550 mg : ORAL Patient Dose: 1 tab(s) Oral 2 times a day. Allergies: acetaminophen, hydrocodone, meropenem, naproxen sodium, Rocephin Hospitalist History - Past Medical History Source: patient, family, RN notes reviewed Cardiac: reports: CAD, HTN, Hyperlipidemia Heme/Onc: reports: no pertinent history Hepatobiliary: reports: Other (Nonspecific portal inflammation) Psych: reports: Depression Renal/: reports: Chronic renal failure (ESRD, M/W/F, left upper extremity fistula, followed by Dr. Russo) Endocrine: reports: Diabetes (Type II), Hypothyroidism Dermatology: reports: Psoriasis (previously on humira) - Past Surgical History Past Surgical History: reports: CABG, Other (Left upper extremity HD fistula, pacemaker) - Family History Other Family History: Noncontributory to this case - Social History Smoking Status: Unknown if ever smoked Alcohol: reports: None Drugs: reports: none Living Situation: With Family Occupation: Does not work Activity level: uses cane/walker - Exam General Appearance: NAD, awake alert. negative: ill appearing Eye: PERRL, anicteric sclera ENT: normocephalic atraumatic Neck: supple, symmetric Heart: RRR, no murmur, no gallops, no rubs, normal peripheral pulses Respiratory: CTAB, no wheezes, no rales, no ronchi, normal chest expansion, no tachypnea Gastrointestinal: soft, non-tender, normal bowel sounds, no guarding, no r igidity Extremities: no cyanosis, no edema Neurological: no focal deficits Neurological - other findings: A&O x3 upon assessment, follows commands Hospitalist Results - Labs Result Diagrams: 05/14/20 12:19 05/14/20 12:19 Lab results: WBC 6.4 thou/uL (4.8-10.8) 05/14/20 12:19 Hgb 12.1 g/dL (12.0-16.0) 05/14/20 12: Hct 35.8 % (36.0-47.0) L 05/14/20 12:19 MCV 97.6 fL (78.0-98.0) 05/14/20 12:19 Plt Count 180 thou/uL (130-400) 05/14/20 12:19 Neutrophils % 59.8 % (42.0-75.0) 05/14/20 12:19 Sodium 136 mmol/L (136-145) 05/14/20 12:19 Potassium 3.8 mmol/L (3.5-5.1) 05/14/20 12:19 Chloride 102 mmol/L (98-107) 05/14/20 12:19 Carbon Dioxide 19 mmol/L (23-31) L 05/14/20 12:19 BUN 55 mg/dL (9.8-20.1) H 05/14/20 12:19 Creatinine 4.67 mg/dL (0.6-1.1) H 05/14/20 12:19 Glucose 130 mg/dL (83-110) H 05/14/20 12:19 Lactic Acid 2.2 mmol/L (0.5-2.2) 05/14/20 15:37 Calcium 8.9 mg/dL (7.8-10.44) 05/14/20 12:19 Total Bilirubin 0.7 mg/dL (0.2-1.2) 05/14/20 12:19 AST 27 U/L (5-34) 05/14/20 12:19 ALT 9 U/L (8-55) 05/14/20 12:19 Alkaline Phosphatase 104 U/L (40-110) 05/14/20 12:19 Ammonia 100 umol/L (18-72) H 05/14/20 15:37 Creatine Kinase 72 U/L (29-168) 05/14/20 12:19 CK-MB (CK-2) 2.1 ng/mL (0-6.6) 05/14/20 12:19 Troponin I 0.026 ng/mL (< 0.028) 05/14/20 15:37 Serum Total Protein 7.8 g/dL (6.0-8.3) 05/14/20 12:19 Albumin 3.4 g/dL (3.4-4.8) 05/14/20 12:19 Lipase 9 U/L (8-78) 05/14/20 15:36 - EKG Interpretation EK lead EKG interpreted by Emergency Department Physician at time of study, 12 lead EKG shows normal sinus rhythm, Rate (beats per minute): 76, Interpretation:, Conduction with, incomplete left bundle branch block, ST segments normal, T waves, [place] normal, Clinical impression:, No acute findings for ischemia at this time. - Radiology Interpretation CT scan - head Status: report reviewed by me Additional Comment: IMPRESSION: 1. No acute intracranial abnormality demonstrated. 2. Chronic small vessel ischemic changes and cerebral volume loss. Chest x-ray Status: report reviewed by me Additional Comment: IMPRESSION: Cardiomegaly. No acute findings. Hospitalist H&P A/P - Problem (1) Metabolic encephalopathy Code(s): G93.41 - METABOLIC ENCEPHALOPATHY Status: Acute (2) End stage renal disease on dialysis Code(s): N18.6 - END STAGE RENAL DISEASE; Z99.2 - DEPENDENCE ON RENAL DIALYSIS Status: Chronic (3) CAD (coronary artery disease) Code(s): I25.10 - ATHSCL HEART DISEASE OF [place] CORONARY ARTERY W/O ANG PCTRS Status: Chronic (4) DM2 (diabetes mellitus, type 2) Status: Chronic (5) HTN (hypertension) Code(s): I10 - ESSENTIAL (PRIMARY) HYPERTENSION Status: Chronic (6) HLD (hyperlipidemia) Code(s): E78.5 - HYPERLIPIDEMIA, UNSPECIFIED Status: Chronic (7) Hypothyroidism Code(s): E03.9 - HYPOTHYROIDISM, UNSPECIFIED Status: Chronic - Plan Plan: 80/F with PMH chronic elevated ammonia and ESRD presents for AMS and difficulty ambulating. Admit to medical floor, observation status. Speculate to stay less than 2 midnights. Presented hypertensive, NL HR, RR, SPO2, afebrile. EKG NSR, incomplete LBBB. CXR cardiomegaly, no acute process CT brain no acute process Ammonia 100 LA 2.2, WBC 6.4 Troponin 0.041, 0.026, CK-MB 2.1, CK 72 #Metabolic encephalopathy Presented NH4 100, was 46 on 11/11 Stable LFTs. Likely secondary to missed home dosing of lactulose. Continue lactulose. Restart home rifaximin. Check TSH and UA. #ESRD on dialysis Scheduled , followed by Dr. Russo Missed today's scheduled session. Consult nephrology for maintenance hemodialysis #CAD On Coreg and aspirin at home. Restart home medications. #DM2 Takes Levemir at home. Restart home medication when reconciled by nursing. Start mild ISS. AC/at bedtime Accu-Cheks. #HTN Presented hypertensive Restart home antihypertensive medications. Monitor BP. #HLD Chronic. No home medications. #Hypothyroidism Been compliant with home medications per spouse. Takes levothyroxine at home. We will restart home medications and reconciled by nursing. Check TSH level. Heparin for DVT prophylaxis. No GI prophylaxis. Full code. Johnson Sung, spouse, at [phone]. Discussed the case with Dr. Talbert
[2020-05-14 18:51] LABS: Lactic Acid 2.3 mmol/L (0.5-2.2)
[2020-05-14] MEDS ORDERED: Ondansetron ODT 4 MG TAB PO PRN (19:33)
[2020-05-14] MEDS ORDERED: hydrOXYzine 10 MG TAB PO PRN (19:37)
[2020-05-14] MEDS ORDERED: Dextrose 50% Abboject 50 ML SYRINGE SLOW IVP PRN (19:39)
[2020-05-14] MEDS ORDERED: HumaLOG 300 UNITS/3 ML VIAL SC PRN (19:39)
[2020-05-14] MEDS ORDERED: Dextrose 5% in Water 1,000 ML IV PRN (19:39)
[2020-05-14 20:47] LABS: Troponin I 0.021 ng/mL (< 0.028)
[2020-05-14] MEDS ORDERED: Triamcinolone 0.1% Cream 30 GM TUBE TOP SCH (21:00)
[2020-05-14] MEDS: Carvedilol 6.25 MG TAB PO SCH (21:24)
[2020-05-14] MEDS: Rifaximin 550 MG TAB PO SCH (21:27)
[2020-05-14] MEDS: Heparin 5,000 UNITS/ML VIAL SC SCH (21:27)
[2020-05-14] MEDS: PARoxetine 20 MG TAB PO SCH (21:39)
[2020-05-14] MEDS: Triamcinolone 0.1% Cream 15 GM TUBE TOP SCH (21:47)
[2020-05-14] MEDS: Betamethasone 0.1% Cream 15 GM TUBE TOP SCH (21:47)
[2020-05-15 01:15] VITALS: BMI 26.3
[2020-05-15] MEDS: Ondansetron PF 4 MG/2 ML Vial IVP PRN (01:38)
[2020-05-15 04:14] LABS: Bacteria/HPF 3+ HPF (None Seen); Bilirubin Negative (Negative); Blood, Urine 2+ (Negative); Clarity Turbid (Clear); Glucose, Urine (Dipstick) Normal (Negative); Ketone, Urine Negative (Negative); Leukocyte 500 Leu/uL (Negative); Nitrite Negative (Negative); Protein, Urine (Dipstick) 70 mg/dL (Neg-Trace); Specific Gravity, Urine 1.015 (1.002-1.036); Urobilinogen Normal mg/dL (Less than 2); WBC/HPF Greater than 50 HPF (0-3); pH, Urine 6.5 (5.0-9.0)
[2020-05-15 04:17] LABS: #Basophils 0.1 thou/uL (0.0-0.2); #Eosinphils 0.2 thou/uL (0.0-0.7); #Lymphocytes 1.1 thou/uL (1.20-3.40); #Monocytes 0.5 thou/uL (0.11-0.59); #Neutrophils 2.5 thou/uL (1.40-6.50); %Basophils 1.2 % (0.0-1.0); %Eosinophils 5.2 % (0.0-10.0); %Lymphocytes 24.2 % (21.0-51.0); %Neutrophils 58.5 % (42.0-75.0); Hemoglobin 10.8 g/dL (12.0-16.0); Mean Corpuscular HGB CONC 34.6 g/dL (32.0-36.0); Mean Corpuscular Volume 95.4 fL (78.0-98.0); Mean Platelet Volume 6.4 fL (7.4-10.4); Platelet Count 163 thou/uL (130-400); RBC Distribution Width 13.5 % (11.5-14.5); Red Blood Cell (RBC) Count 3.27 mill/uL (4.20-5.40); White Blood Cell (WBC) Count 4.3 thou/uL (4.8-10.8)
[2020-05-15 04:24] LABS: Phosphorus 5.8 mg/dL (2.3-4.7)
[2020-05-15 04:25] LABS: Lactic Acid 1.6 mmol/L (0.5-2.2)
[2020-05-15 04:34] LABS: Anion Gap 20 mmol/L (10-20); BUN (Urea Nitrogen) 62 mg/dL (9.8-20.1); Calc. Creatinine Clearance 9 mL/min (70-130); Calcium 8.8 mg/dL (7.8-10.44); Carbon Dioxide 21 mmol/L (23-31); Chloride 103 mmol/L (98-107); Estimated GFR-MDRD 9; Glucose 125 mg/dL (83-110); Magnesium 2.7 mg/dL (1.6-2.6); Potassium 3.9 mmol/L (3.5-5.1); Sodium 140 mmol/L (136-145)
[2020-05-15] MEDS ORDERED: Levothyroxine Sodium 88 MCG TAB PO SCH (06:00)
[2020-05-15] MEDS ORDERED: Heparin 10,000 UNITS/ 10 ML VIAL ONE (08:44)
[2020-05-15] MEDS: Aspirin 81 mg Enteric Coated Tablet PO SCH (08:57)
[2020-05-15] MEDS: Rifaximin 550 MG TAB PO SCH ×2 (08:57→23:18)
[2020-05-15] MEDS: Heparin 5,000 UNITS/ML VIAL SC SCH ×2 (08:57→23:21)
[2020-05-15] MEDS: Ferrous Sulfate 325 MG TAB PO SCH (08:57)
[2020-05-15] MEDS: Triamcinolone 0.1% Cream 15 GM TUBE TOP SCH ×2 (08:58→23:19)
[2020-05-15] MEDS: Betamethasone 0.1% Cream 15 GM TUBE TOP SCH ×2 (08:58→23:19)
--- NOTE | 2020-05-15 09:11 | PDOC.NEPPN ---
- Subjective Encounter Date: 05/15/20 Subjective: 80 y/o female well known to me, with ESRD on HD admitted due to acute onset of mental status change of confusion and generalized weakness. Found to have elevated ammonia cuggestive of hepatic encephalopathy. Also reported dysuria. Feeling better. Still with some memory lapses. No fever. - Objective Vital Signs & Weight: Vital Signs (12 hours) Temp Pulse Resp BP BP Pulse Ox 05/15/20 09:00 97.7 F 65 14 147/75 H 100 05/15/20 03:40 97.6 F 65 16 111/58 L 100 05/14/20 23:14 97.5 F L 65 16 112/54 L 99 05/14/20 21:24 171/69 H Weight Weight 134 lb 14.766 oz Result Diagrams: 05/15/20 03:52 05/15/20 03:52 Additional Labs: Accuchecks 05/15/20 05/15/20 05:51 01:30 POC Glucose 121 H 125 H Nephrology ROS - Medication Medications: Active Medications Generic Name Dose Route Start Last Admin Trade Name Freq PRN Reason Stop Dose Admin Aspirin 81 mg 05/15/20 09:00 05/15/20 08:57 Aspirin 81 Mg Enteric Coated Tablet PO 81 mg DAILY CHAPARRO Administration Betamethasone Valerate 0 gm 05/14/20 21:00 05/15/20 08:58 Betamethasone 0.1% Cream 15 Gm Tube TOP 1 applic BID CHAPARRO Administration Carvedilol 6.25 mg 05/14/20 21:00 05/14/20 21:24 Carvedilol 6.25 Mg Tab PO 6.25 mg BID CHAPARRO Administration Ferrous Sulfate 325 mg 05/15/20 09:00 05/15/20 08:57 Ferrous Sulfate 325 Mg Tab PO 325 mg DAILY CHAPARRO Administration Heparin Sodium (Porcine) 5,000 units 05/14/20 21:00 05/15/20 08:57 Heparin 5,000 Units/Ml Vial SC 5,000 units BID CHAPARRO Administration Insulin Human Lispro 0 units 05/14/20 19:39 05/14/20 21:40 Humalog 300 Units/3 Ml Vial SC 3 unit .BEDTIME SLIDING SC PRN Administration Bedtime Correctional Scale Lactulose 30 gm 05/14/20 21:00 05/14/20 21:25 Lactulose 20 Gm/30 Ml Udcup PO 30 gm TID CHAPARRO Administration Levothyroxine Sodium 88 mcg 05/15/20 06:00 05/15/20 06:32 Levothyroxine Sodium 88 Mcg Tab PO 88 mcg Q2D [facility]O Administration Ondansetron HCl 4 mg 05/14/20 19:33 05/15/20 01:38 Ondansetron Pf 4 Mg/2 Ml Vial IVP 4 mg Q6H PRN Administration Nausea/Vomiting Paroxetine HCl 10 mg 05/14/20 21:00 05/14/20 21:39 Paroxetine 20 Mg Tab PO 10 mg HS [facility]ARRO Administration Rifaximin 550 mg 05/14/20 21:00 05/15/20 08:57 Rifaximin 550 Mg Tab PO 550 mg BID CHAPARRO Administration Triamcinolone Acetonide 0 gm 05/14/20 21:00 05/15/20 08:58 Triamcinolone 0.1% Cream 15 Gm Tube TOP 1 applic BID CHAPARRO Administration - Exam General Appearance: awake alert Eye: anicteric sclera ENT: normocephalic atraumatic, moist mucosa Neck: supple, no JVD Respiratory: no ronchi, normal chest expansion Respiratory - other findings: fair air entry bilaterally. No distress Cardiovascular: RRR, murmur present Gastrointestinal: soft, non-tender, non-distended, normal bowel sounds Extremities: no edema Skin - other findings: scattered psoriatic lesions on the trunk and extremities Neurological: CN's grossly intact, no focal deficits Musculoskeletal: generalized weakness PSYCH: oriented to person, oriented to place Nephrology Results - Labs Result Diagrams: 05/15/20 03:52 05/15/20 03:52 Lab results: WBC 4.3 thou/uL (4.8-10.8) L 05/15/20 03:52 Hgb 10.8 g/dL (12.0-16.0) L 05/15/20 03:52 Hct 31.1 % (36.0-47.0) L 05/15/20 03:52 MCV 95.4 fL (78.0-98.0) 05/15/20 03:52 Plt Count 163 thou/uL (130-400) 05/15/20 03:52 Neutrophils % 58.5 % (42.0-75.0) 05/15/20 03:52 Sodium 140 mmol/L (136-145) 05/15/20 03:52 Potassium 3.9 mmol/L (3.5-5.1) 05/15/20 03:52 Chloride 103 mmol/L (98-107) 05/15/20 03:52 Carbon Dioxide 21 mmol/L (23-31) L 05/15/20 03:52 BUN 62 mg/dL (9.8-20.1) H 05/15/20 03:52 Creatinine 4.74 mg/dL (0.6-1.1) H 05/15/20 03:52 Glucose 125 mg/dL (83-110) H 05/15/20 03:52 Lactic Acid 1.6 mmol/L (0.5-2.2) 05/15/20 03:52 Calcium 8.8 mg/dL (7.8-10.44) 05/15/20 03:52 Total Bilirubin 0.7 mg/dL (0.2-1.2) 05/14/20 12:19 AST 27 U/L (5-34) 05/14/20 12:19 ALT 9 U/L (8-55) 05/14/20 12:19 Alkaline Phosphatase 104 U/L (40-110) 05/14/20 12:19 Ammonia 118 umol/L (18-72) H 05/15/20 03:52 Creatine Kinase 72 U/L (29-168) 05/14/20 12:19 CK-MB (CK-2) 2.1 ng/mL (0-6.6) 05/14/20 12:19 Troponin I 0.021 ng/mL (< 0.028) 05/14/20 20:16 Serum Total Protein 7.8 g/dL (6.0-8.3) 05/14/20 12:19 Albumin 3.4 g/dL (3.4-4.8) 05/14/20 12:19 Lipase 9 U/L (8-78) 05/14/20 15:36 Urine Ketones Negative mg/dL (Negative) 05/15/20 03:10 Urine Blood 2+ (Negative) A 05/15/20 03:10 Urine Nitrite Negative (Negative) 05/15/20 03:10 Ur Leukocyte Esterase 500 Reagan/uL (Negative) A 05/15/20 03:10 Urine RBC 11-20 HPF (0-3) A 05/15/20 03:10 Urine WBC Greater than 50 HPF (0-3) A 05/15/20 03:10 Ur Squamous Epith Cells 4-6 HPF (0-3) A 05/15/20 03:10 Urine Bacteria 3+ HPF (None Seen) A 05/15/20 03:10 Sodium 140 mmol/L (136-145) 05/15/20 03:52 Potassium 3.9 mmol/L (3.5-5.1) 05/15/20 03:52 Chloride 103 mmol/L (98-107) 05/15/20 03:52 Carbon Dioxide 21 mmol/L (23-31) L 05/15/20 03:52 Anion Gap 20 mmol/L (10-20) 05/15/20 03:52 BUN 62 mg/dL (9.8-20.1) H 05/15/20 03:52 Creatinine 4.74 mg/dL (0.6-1.1) H 05/15/20 03:52 Glucose 125 mg/dL (83-110) H 05/15/20 03:52 Calcium 8.8 mg/dL (7.8-10.44) 05/15/20 03:52 Phosphorus 5.8 mg/dL (2.3-4.7) H 05/15/20 03:52 Magnesium 2.7 mg/dL (1.6-2.6) H 05/15/20 03:52 Albumin 3.4 g/dL (3.4-4.8) 05/14/20 12:19 Nephrology AP PN - Plan Assessment ESRD on HD MWF. Last treatment was on 05/11/2020 or 05/13/2020. Anemia in CKD Acute encephaalopaathy: Due to hepatic encephalopathy and or UTI Possible UTI Liver cirrhosis Plan Will dialyze patient today with UF as tolerated. See EMR for order Get urine culture Other treatment as per primary attending.
--- NOTE | 2020-05-15 12:41 | PDOC.HOSPP ---
- Subjective Encounter Date: 05/15/20 Encounter Time: 12:40 Subjective: awake ,calm, oriented to person, place, year - Objective Vital Signs & Weight: Vital Signs (12 hours) Temp Pulse Resp BP Pulse Ox 05/15/20 09:00 97.7 F 65 14 147/75 H 100 05/15/20 03:40 97.6 F 65 16 111/58 L 100 Weight Weight 134 lb 14.766 oz I&O: 05/14/20 05/15/20 05/16/20 06:59 06:59 06:59 Intake Total 240 Balance 240 Result Diagrams: 05/15/20 03:52 05/15/20 03:52 Additional Labs: Accuchecks 05/15/20 05/15/20 05/14/20 05:51 01:30 21:11 POC Glucose 121 H 125 H 251 H Hospitalist ROS - Medication Medications: Active Medications Generic Name Dose Route Start Last Admin Trade Name Freq PRN Reason Stop Dose Admin Aspirin 81 mg 05/15/20 09:00 05/15/20 08:57 Aspirin 81 Mg Enteric Coated Tablet PO 81 mg DAILY CHAPARRO Administration Betamethasone Valerate 0 gm 05/14/20 21:00 05/15/20 08:58 Betamethasone 0.1% Cream 15 Gm Tube TOP 1 applic BID CHAPARRO Administration Carvedilol 6.25 mg 05/14/20 21:00 05/14/20 21:24 Carvedilol 6.25 Mg Tab PO 6.25 mg BID CHAPARRO Administration Ferrous Sulfate 325 mg 05/15/20 09:00 05/15/20 08:57 Ferrous Sulfate 325 Mg Tab PO 325 mg DAILY CHAPARRO Administration Heparin Sodium (Porcine) 5,000 units 05/14/20 21:00 05/15/20 08:57 Heparin 5,000 Units/Ml Vial SC 5,000 units BID CHAPARRO Administration Insulin Human Lispro 0 units 05/14/20 19:39 05/14/20 21:40 Humalog 300 Units/3 Ml Vial SC 3 unit .BEDTIME SLIDING SC PRN Administration Bedtime Correctional Scale Lactulose 30 gm 05/14/20 21:00 05/14/20 21:25 Lactulose 20 Gm/30 Ml Udcup PO 30 gm TID CH[facility]ARRO Administration Levothyroxine Sodium 88 mcg 05/15/20 06:00 05/15/20 06:32 Levothyroxine Sodium 88 Mcg Tab PO 88 mcg Q2D [facility]O Administration Ondansetron HCl 4 mg 05/14/20 19:33 05/15/20 01:38 Ondansetron Pf 4 Mg/2 Ml Vial IVP 4 mg Q6H PRN Administration Nausea/Vomiting Paroxetine HCl 10 mg 05/14/20 21:00 05/14/20 21:39 Paroxetine 20 Mg Tab PO 10 mg HS CH[facility]O Administration Rifaximin 550 mg 05/14/20 21:00 05/15/20 08:57 Rifaximin 550 Mg Tab PO 550 mg BID CHAPARRO Administration Triamcinolone Acetonide 0 gm 05/14/20 21:00 05/15/20 08:58 Triamcinolone 0.1% Cream 15 Gm Tube TOP 1 applic BID CHAPARRO Administration - Exam General Appearance: awake alert Neck: no JVD Heart: RRR, no murmur Respiratory: CTAB Gastrointestinal: soft, normal bowel sounds Extremities: 1+ LE edema Hosp A/P (1) ESRD (end stage renal disease) on dialysis Code(s): N18.6 - END STAGE RENAL DISEASE; Z99.2 - DEPENDENCE ON RENAL DIALYSIS Status: Acute (2) Cirrhosis of liver Code(s): K74.60 - UNSPECIFIED CIRRHOSIS OF LIVER Status: Chronic (3) Coronary artery disease Code(s): I25.10 - ATHSCL HEART DISEASE OF [place] CORONARY ARTERY W/O ANG PCTRS Status: Chronic Qualifiers: Coronary Disease-Associated Artery/Lesion type: [place] artery [place] vs. transplanted heart: [place] heart Associated angina: without angina Qualified Code(s): I25.10 - Atherosclerotic heart disease of [place] coronary artery without angina pectoris (4) Diabetes type 2, controlled Code(s): E11.9 - TYPE 2 DIABETES MELLITUS WITHOUT COMPLICATIONS Status: Chronic Qualifiers: Diabetes mellitus custodial insulin use: without exterminator termite use Diabetes mellitus complication status: with kidney complications Diabetes mellitus complication detail: with chronic kidney disease Chronic kidney disease stage: stage 3 (moderate) Qualified Code(s): E11.22 - Type 2 diabetes mellitus with diabetic chronic kidney disease; N18.3 - Chronic kidney disease, stage 3 (moderate) (5) Hypertension Code(s): I10 - ESSENTIAL (PRIMARY) HYPERTENSION Status: Chronic Qualifiers: Hypertension type: essential hypertension (6) Liver cirrhosis Code(s): K74.60 - UNSPECIFIED CIRRHOSIS OF LIVER Status: Chronic Qualifiers: Ascites presence: unspecified (7) Moderate aortic stenosis Code(s): I35.0 - NONRHEUMATIC AORTIC (VALVE) STENOSIS Status: Chronic (8) Hepatic encephalopathy Code(s): K72.90 - HEPATIC FAILURE, UNSPECIFIED WITHOUT COMA Status: Resolved - Plan increase lactulose to tid cont home meds OW HD, discuss with nephrology
[2020-05-15] MEDS: Carvedilol 6.25 MG TAB PO SCH ×2 (13:24→23:21)
[2020-05-15] MEDS: HumaLOG 300 UNITS/3 ML VIAL SC PRN (13:50)
--- NOTE | 2020-05-15 15:47 | PDOC.BPN ---
- Brief Progress Note Encounter Date: 05/15/20 Encounter Time: 15:46 still encephalopathic, increased lactulose, repear ammonia level in AM
[2020-05-15] MEDS ORDERED: Lidocaine 1% (PF) 30 ML VIAL ONE (15:55)
[2020-05-15] MEDS ORDERED: Albumin 25% 25 GM/100 ML BOT IVPB SCH (18:45)
[2020-05-15] MEDS: PARoxetine 20 MG TAB PO SCH (23:18)
[2020-05-16 04:56] LABS: HBSAg Index 1.94 S/CO (0-0.99)
[2020-05-16 04:58] LABS: Hep B Surf Ag Reflx Confirmation S/CO (NonReactive)
[2020-05-16] MEDS: HumaLOG 300 UNITS/3 ML VIAL SC PRN ×2 (05:35→16:34)
[2020-05-16] MEDS: Ondansetron PF 4 MG/2 ML Vial IVP PRN (05:41)
[2020-05-16] MEDS ORDERED: Levothyroxine Sodium 75 MCG TAB PO SCH (06:00)
--- NOTE | 2020-05-16 07:11 | OP ---
DATE OF PROCEDURE: 05/15/2020 PROCEDURE PERFORMED: Right femoral dialysis catheter placement. MEDICATION: 1% lidocaine. DETAILS OF PROCEDURE: After informed consent was obtained, the patient was prepped and draped in a sterile fashion. With real-time ultrasound guidance, the right femoral vein was approached in layers, serially dilated, and a Trialysis catheter placed with good flushes. No immediate postop complication. Blood loss is minimal. The patient's catheter is ready for dialysis. Job ID: [id number]
[2020-05-16] MEDS: Aspirin 81 mg Enteric Coated Tablet PO SCH (09:43)
[2020-05-16] MEDS: Ferrous Sulfate 325 MG TAB PO SCH (09:44)
[2020-05-16] MEDS: Triamcinolone 0.1% Cream 15 GM TUBE TOP SCH (09:44)
[2020-05-16] MEDS: Betamethasone 0.1% Cream 15 GM TUBE TOP SCH (09:45)
[2020-05-16] MEDS: Heparin 5,000 UNITS/ML VIAL SC SCH (09:46)
[2020-05-16] MEDS: Carvedilol 6.25 MG TAB PO SCH (09:46)
[2020-05-16] MEDS: Rifaximin 550 MG TAB PO SCH (09:46)
--- NOTE | 2020-05-16 09:47 | PDOC.NEPPN ---
- Subjective Encounter Date: 05/16/20 Encounter Time: 09:45 Subjective: Seen in follow up for ESRD. Had HD yesterday via a temproray catheter due to difficult cannulation of AVF. Feeling better. - Objective Vital Signs & Weight: Vital Signs (12 hours) Temp Pulse Resp BP Pulse Ox 05/16/20 07:25 98.3 F 78 16 119/67 100 05/16/20 04:16 98.1 F 73 18 133/67 100 05/15/20 23:55 97.9 F 77 16 128/65 99 Weight Weight 134 lb 14.766 oz I&O: 05/15/20 05/16/20 05/17/20 06:59 06:59 06:59 Intake Total 720 Balance 720 Result Diagrams: 05/15/20 03:52 05/15/20 03:52 Additional Labs: Accuchecks 05/16/20 05/15/20 05/14/20 05:33 13:05 21:11 POC Glucose 157 H 201 H 251 H Nephrology ROS - Medication Medications: Active Medications Generic Name Dose Route Start Last Admin Trade Name Freq PRN Reason Stop Dose Admin Aspirin 81 mg 05/15/20 09:00 05/15/20 08:57 Aspirin 81 Mg Enteric Coated Tablet PO 81 mg DAILY CHAPARRO Administration Betamethasone Valerate 0 gm 05/14/20 21:00 05/15/20 23:19 Betamethasone 0.1% Cream 15 Gm Tube TOP 1 applic BID CHAPARRO Administration Carvedilol 6.25 mg 05/14/20 21:00 05/15/20 23:21 Carvedilol 6.25 Mg Tab PO Not Given BID CHAPARRO Ferrous Sulfate 325 mg 05/15/20 09:00 05/15/20 08:57 Ferrous Sulfate 325 Mg Tab PO 325 mg DAILY CHAPARRO Administration Heparin Sodium (Porcine) 5,000 units 05/14/20 21:00 05/15/20 23:21 Heparin 5,000 Units/Ml Vial SC 5,000 units BID CHAPARRO Administration Insulin Human Lispro 0 units 05/14/20 19:39 05/16/20 05:35 Humalog 300 Units/3 Ml Vial SC 2 unit .MILD SLIDING SCALE PRN Administration Mild Correctional Scale Insulin Human Lispro 0 units 05/14/20 19:39 05/14/20 21:40 Humalog 300 Units/3 Ml Vial SC 3 unit .BEDTIME SLIDING SC PRN Administration Bedtime Correctional Scale Lactulose 30 gm 05/14/20 21:00 05/15/20 23:18 Lactulose 20 Gm/30 Ml Udcup PO 30 gm TID CHAPARRO Administration Levothyroxine Sodium 88 mcg 05/15/20 06:00 05/15/20 06:32 Levothyroxine Sodium 88 Mcg Tab PO 88 mcg Q2D [facility]O Administration Levothyroxine Sodium 75 mcg 05/16/20 06:00 05/16/20 05:28 Levothyroxine Sodium 75 Mcg Tab PO 75 mcg Q2D [facility]O Administration Ondansetron HCl 4 mg 05/14/20 19:33 05/16/20 05:41 Ondansetron Pf 4 Mg/2 Ml Vial IVP 4 mg Q6H PRN Administration Nausea/Vomiting Paroxetine HCl 10 mg 05/14/20 21:00 05/15/20 23:18 Paroxetine 20 Mg Tab PO 10 mg HS CH[facility]ARRO Administration Rifaximin 550 mg 05/14/20 21:00 05/15/20 23:18 Rifaximin 550 Mg Tab PO 550 mg BID CHAPARRO Administration Triamcinolone Acetonide 0 gm 05/14/20 21:00 05/15/20 23:19 Triamcinolone 0.1% Cream 15 Gm Tube TOP 1 applic BID CHAPARRO Administration - Exam General Appearance: awake alert ENT: normocephalic atraumatic, moist mucosa Neck: supple Respiratory: no wheezes, no ronchi, normal chest expansion, no tachypnea Cardiovascular: RRR, murmur present Gastrointestinal: soft, non-tender, non-distended, normal bowel sounds Extremities: no edema Neurological: CN's grossly intact, no focal deficits Musculoskeletal: generalized weakness PSYCH: A&O x 3 Nephrology Results - Labs Result Diagrams: 05/15/20 03:52 05/15/20 03:52 Lab results: WBC 4.3 thou/uL (4.8-10.8) L 05/15/20 03:52 Hgb 10.8 g/dL (12.0-16.0) L 05/15/20 03:52 Hct 31.1 % (36.0-47.0) L 05/15/20 03:52 MCV 95.4 fL (78.0-98.0) 05/15/20 03:52 Plt Count 163 thou/uL (130-400) 05/15/20 03:52 Neutrophils % 58.5 % (42.0-75.0) 05/15/20 03:52 Sodium 140 mmol/L (136-145) 05/15/20 03:52 Potassium 3.9 mmol/L (3.5-5.1) 05/15/20 03:52 Chloride 103 mmol/L (98-107) 05/15/20 03:52 Carbon Dioxide 21 mmol/L (23-31) L 05/15/20 03:52 BUN 62 mg/dL (9.8-20.1) H 05/15/20 03:52 Creatinine 4.74 mg/dL (0.6-1.1) H 05/15/20 03:52 Glucose 125 mg/dL (83-110) H 05/15/20 03:52 Lactic Acid 1.6 mmol/L (0.5-2.2) 05/15/20 03:52 Calcium 8.8 mg/dL (7.8-10.44) 05/15/20 03:52 Total Bilirubin 0.7 mg/dL (0.2-1.2) 05/14/20 12:19 AST 27 U/L (5-34) 05/14/20 12:19 ALT 9 U/L (8-55) 05/14/20 12:19 Alkaline Phosphatase 104 U/L (40-110) 05/14/20 12:19 Ammonia 41 umol/L (18-72) 05/16/20 05:35 Creatine Kinase 72 U/L (29-168) 05/14/20 12:19 CK-MB (CK-2) 2.1 ng/mL (0-6.6) 05/14/20 12:19 Troponin I 0.021 ng/mL (< 0.028) 05/14/20 20:16 Serum Total Protein 7.8 g/dL (6.0-8.3) 05/14/20 12:19 Albumin 3.4 g/dL (3.4-4.8) 05/14/20 12:19 Lipase 9 U/L (8-78) 05/14/20 15:36 Urine Ketones Negative mg/dL (Negative) 05/15/20 03:10 Urine Blood 2+ (Negative) A 05/15/20 03:10 Urine Nitrite Negative (Negative) 05/15/20 03:10 Ur Leukocyte Esterase 500 Reagan/uL (Negative) A 05/15/20 03:10 Urine RBC 11-20 HPF (0-3) A 05/15/20 03:10 Urine WBC Greater than 50 HPF (0-3) A 05/15/20 03:10 Ur Squamous Epith Cells 4-6 HPF (0-3) A 05/15/20 03:10 Urine Bacteria 3+ HPF (None Seen) A 05/15/20 03:10 Sodium 140 mmol/L (136-145) 05/15/20 03:52 Potassium 3.9 mmol/L (3.5-5.1) 05/15/20 03:52 Chloride 103 mmol/L (98-107) 05/15/20 03:52 Carbon Dioxide 21 mmol/L (23-31) L 05/15/20 03:52 Anion Gap 20 mmol/L (10-20) 05/15/20 03:52 BUN 62 mg/dL (9.8-20.1) H 05/15/20 03:52 Creatinine 4.74 mg/dL (0.6-1.1) H 05/15/20 03:52 Glucose 125 mg/dL (83-110) H 05/15/20 03:52 Calcium 8.8 mg/dL (7.8-10.44) 05/15/20 03:52 Phosphorus 5.8 mg/dL (2.3-4.7) H 05/15/20 03:52 Magnesium 2.7 mg/dL (1.6-2.6) H 05/15/20 03:52 Albumin 3.4 g/dL (3.4-4.8) 05/14/20 12:19 Nephrology AP PN - Plan Assessment ESRD on HD MWF. Last treatment was on 05/11/2020 or 05/13/2020. Anemia in CKD Acute encephaalopaathy: Due to hepatic encephalopathy and or UTI Possible UTI Liver cirrhosis AVF dysfunction s/p temp dialysis cath placement. Plan Will dialyze patient today in line with her usual schedule. can be discharged from nephrology point of view after HD. DC femoral dialysis catheter after HD, Other treatment as per primary attending. care plan discussed with patient and spouse
[2020-05-16] MEDS ORDERED: Nystatin Powder 15 GM BOT TOP PRN (09:51)
[2020-05-16] MEDS ORDERED: Albumin 25% 25 GM/100 ML BOT IVPB SCH (11:00)
--- NOTE | 2020-05-16 15:18 | DIS ---
DATE OF ADMISSION: 05/15/2020 DATE OF DISCHARGE: 05/16/2020 PRIMARY CARE PROVIDER: Dr. Pedro Amezcua. FINAL DIAGNOSES: Acute hepatic encephalopathy; end-stage renal disease, requiring dialysis; coronary artery disease; type 2 diabetes mellitus with end-stage renal disease; hypertension; dyslipidemia; cirrhosis of the liver. DISCHARGE MEDICATIONS: 1. Ferrous sulfate 325 mg a day. 2. Synthroid 75 mcg a day plus 88 mcg a day. 3. Aspirin 81 mg a day. 4. Paxil 10 mg a day. 5. Insulin detemir 10 units subcu in the morning. 6. Coreg 6.25 mg p.o. b.i.d. 7. Atarax 10 mg p.o. t.i.d. p.r.n. 8. Xifaxan 550 mg twice a day. 9. Lactulose 30 g p.o. t.i.d. Note, this is up from her old dose of 20 b.i.d. ALLERGIES: NAPROXEN, CEFTRIAXONE, HYDROCODONE, MEROPENEM. CODE STATUS: Full resuscitation. DIET: Diabetic. PENDING AT THE TIME OF DISCHARGE: Nothing. HOSPITAL COURSE: The patient admitted to the hospital with acute confusion, found to have a markedly elevated ammonia level at 118, admitted to the hospital for treatment. She also has end-stage renal disease. Her initial laboratory; white count 6.4, hemoglobin 12.1, platelet count 180,000. Sodium 136, potassium 3.8, CO2 of 19, BUN 55, creatinine 4.67, blood sugar 130. Her ammonia level causes to start her on increased dose of lactulose, which brought her ammonia level down to 41. During hospital stay, she had hemodialysis on 05/15 and 05/16. She is now stable and ready for discharge. It is noteworthy that she is alert and cooperative at this time. She is being discharged home to follow up with Dr. Amezcua in one week, to follow up with her routine Thursday, Thursday, Thursday hemodialysis appointments. CONSULTATION: Dr. Bryson Russo. PROCEDURES: Right femoral catheter placement by Dr. Rabia Ramírez. It is noteworthy that her shunt failed during the hospitalization. Job ID: [id number]
[2020-05-16 16:19] VITALS: BP 113/68; TEMP 98
[2020-05-17 02:37] LABS: Hep B Surface AG-Rflx Sendout Negative (Negative)
== END 2020-05-16 18:31 | disposition home or self-care (01) | DRG 441 ==
LOC: ERS 11:33 → SURG B 17:18 → OBSVTOIN 05-15 15:01
PROVIDERS: ADMIT Internal Medicine; ATTEND Internal Medicine
PROC: 06HY33Z Insertion of Infusion Device into Lower Vein, Percutaneous Approach (ICD-10-PCS; principal; 2020-05-15)
PROC: 5A1D70Z Performance of Urinary Filtration, Intermittent, Less than 6 Hours Per Day (ICD-10-PCS; 2020-05-15)
DX: K72.00 Acute and subacute hepatic failure without coma (principal); N18.6 End stage renal disease; I12.0 Hypertensive chronic kidney disease with stage 5 chronic kidney disease or end stage renal disease; I25.10 Atherosclerotic heart disease of native coronary artery without angina pectoris; F32.9 Major depressive disorder, single episode, unspecified; K74.60 Unspecified cirrhosis of liver; E11.22 Type 2 diabetes mellitus with diabetic chronic kidney disease; I44.7 Left bundle-branch block, unspecified; I35.0 Nonrheumatic aortic (valve) stenosis; D63.1 Anemia in chronic kidney disease; E03.9 Hypothyroidism, unspecified; E78.5 Hyperlipidemia, unspecified; Y83.8 Other surgical procedures as the cause of abnormal reaction of the patient, or of later complication, without mention of misadventure at the time of the procedure; Z79.82 Long term (current) use of aspirin; Z79.4 Long term (current) use of insulin; Z95.1 Presence of aortocoronary bypass graft; Z99.2 Dependence on renal dialysis; Z88.1 Allergy status to other antibiotic agents; Z88.8 Allergy status to other drugs, medicaments and biological substances
CPT/HCPCS: 36415; 36416; 70450; 71045; 80048; 80053; 81001; 82140; 82550; 82553; 83605; 83690; 83735; 84100; 84443; 84484; 85025; 87077; 87086; 87186; 87340; 93005; J1644; J2001; J2405

== ENCOUNTER 2020-06-12 09:40 | Observation (INO) | payer MEDICARE ==
--- NOTE | 2020-06-12 10:07 | CT ---
Exam: CT brain PROVIDED CLINICAL HISTORY: Altered mental status COMPARISON: 05/14/2020 FINDINGS: The ventricular system is normal in size and morphology. No evidence for intracranial hemorrhage or mass effect. The extracranial soft tissues and osseous structures demonstrate no evidence for an acute abnormality. IMPRESSION: No evidence for intracranial hemorrhage or mass effect.
[2020-06-12 10:27] LABS: #Eosinphils 0.1 thou/uL (0.0-0.7); #Lymphocytes 1.2 thou/uL (1.20-3.40); #Monocytes 0.4 thou/uL (0.11-0.59); #Neutrophils 2.4 thou/uL (1.40-6.50); %Basophils 0.8 % (0.0-1.0); %Lymphocytes 29.1 % (21.0-51.0); %Monocytes 10.2 % (0.0-10.0); %Neutrophils 56.9 % (42.0-75.0); Hemoglobin 11.6 g/dL (12.0-16.0); Mean Corpuscular HGB CONC 34.2 g/dL (32.0-36.0); Mean Corpuscular Hemoglobin 32.9 pg (27.0-31.0); Mean Corpuscular Volume 96.4 fL (78.0-98.0); Mean Platelet Volume 6.4 fL (7.4-10.4); Platelet Count 142 thou/uL (130-400); RBC Distribution Width 13.2 % (11.5-14.5); Red Blood Cell (RBC) Count 3.52 mill/uL (4.20-5.40); White Blood Cell (WBC) Count 4.1 thou/uL (4.8-10.8)
[2020-06-12 10:47] LABS: ALT (SGPT) 12 U/L (8-55); AST (SGOT) 26 U/L (5-34); Albumin 3.5 g/dL (3.4-4.8); Alkaline Phosphatase 125 U/L (40-110); Anion Gap 23 mmol/L (10-20); BUN (Urea Nitrogen) 51 mg/dL (9.8-20.1); Bilirubin, Total 0.6 mg/dL (0.2-1.2); Calc. Creatinine Clearance 0 mL/min (70-130); Calcium 8.7 mg/dL (7.8-10.44); Carbon Dioxide 19 mmol/L (23-31); Chloride 99 mmol/L (98-107); Glucose 172 mg/dL (83-110); Potassium 3.6 mmol/L (3.5-5.1); Protein, Total 7.5 g/dL (6.0-8.3); Sodium 137 mmol/L (136-145)
--- NOTE | 2020-06-12 11:32 | PDOC.HHP ---
Hospitalist HPI - History of Present Illness Altered mental status History of Present Illness: 80-year-old female who has ESRD on hemodialysis, who was brought to emergency room for altered mental status, patient missed her dialysis yesterday, today in the emergency room patient was hemodynamically stable but that she was only oriented x1, patient was appeared confused, patient was not able to provide any history, as per patient altered mental status started this morning, patient does not any shortness of breath or wheezing, today in the emergency room routine laboratory parameters unremarkable except her ammonia level is elevated to 153. Patient is given lactulose in the emergency room, patient is being admitted for hepatic encephalopathy. ED Course: Patient is given lactulose in the emergency room. VITAL SIGNS ThuJun 12, 2020 09:47 YASMIN Kumar, Fay BP: 179/58, Pulse: 75, Resp: 18, Temp: 97.5 (Oral), Pain: 0, O2 sat: 100 on (Room Air), Time: 06/12/2020 09:47. Hospitalist ROS - Review of Systems ROS unobtainable: due to mental status - Medication Medications: Home medication Medication Instructions Recorded Confirmed Type Rifaximin [Xifaxan] 550 mg PO BID #60 tablet 07/21/18 05/14/20 Rx Carvedilol [Coreg] 6.25 mg PO BID #60 tab 09/26/18 05/14/20 Rx Ferrous Sulfate 1 tab PO DAILY 03/23/19 05/14/20 History Levothyroxine Sodium 88 mcg PO Q2D 03/23/19 05/14/20 History hydrOXYzine [Atarax] 10 mg PO TID PRN 11/12/19 05/14/20 History Insulin Detemir [Levemir Flextouch] 10 unit SQ QAM 01/17/20 05/14/20 History Aspirin [Aspirin EC] 1 tab PO DAILY 05/14/20 05/14/20 History Betamethasone Valerate 1 applic TOP BID 05/14/20 05/14/20 History [Betamethasone Valerate 0.1% Cream] Levothyroxine Sodium [Synthroid] 1 tab PO QAM 05/14/20 05/14/20 History PARoxetine HCl [Paroxetine HCl] 1 tab PO HS 05/14/20 05/14/20 History Triamcinolone Acetonide [Kenalog 1 applic TOP BID 05/14/20 05/14/20 History 0.1% Cream] Hydrocortisone [Hydrocortisone 1 applic TOP BID 05/15/20 05/15/20 History 2.5% Ointment] Lactulose 30 gm PO TID #0 udcup 05/16/20 Rx Allergy Allergies naproxen sodium [From Aleve] Allergy (Mild, Verified 01/17/20 14:42) blisters CAUSES SHAKING PER PT ceftriaxone [From Rocephin] Allergy (Unknown, Verified 01/17/20 14:42) swelling hydrocodone Allergy (Verified 01/17/20 14:42) +++ drowsy meropenem Adverse Reaction (Verified 01/17/20 14:42) Rash rash on various areas of her body CODE STATUS full code Hospitalist History - Past Medical History Heme/Onc: reports: no pertinent history Hepatobiliary: reports: Other (Nonspecific portal inflammation) Psych: reports: Depression Musculoskeletal: reports: no pertinent history Rheumatologic: reports: no pertinent history Renal/: reports: Chronic renal failure (ESRD, M/W/F, left upper extremity fistula, followed by Dr. Russo) Endocrine: reports: Diabetes (Type II), Hypothyroidism Dermatology: reports: Psoriasis (previously on humira) Other Medical History: Diabetes type 2 Hypertension Coronary artery disease ESRD on hemodialysis Thursday - Past Surgical History Past Surgical History: reports: CABG, Other (Left upper extremity HD fistula, pacemaker) Other Surgical History: CABG Pacemaker Dialysis access - Family History Other Family History: No strong family history of premature coronary artery disease stroke or cancer - Social History Alcohol: reports: None Drugs: reports: none Occupation: Does not work Other Social History: No history of tobacco alcohol or illicit drug abuse, patient lives at home with family - Exam General Appearance: NAD Eye: PERRL, anicteric sclera ENT: normocephalic atraumatic, no oropharyngeal lesions Neck: supple, symmetric, no JVD, no thyromegaly Heart: RRR, no murmur, no gallops, no rubs Respiratory: no wheezes, no rales, no ronchi Gastrointestinal: soft, non-tender, non-distended, normal bowel sounds Extremities: no cyanosis, no clubbing, no edema Skin: normal turgor, no lesions Neurological: no focal deficits Neurological - other findings: Asterixis noted Musculoskeletal: normal tone, normal strength Psychiatric: normal affect, normal behavior, not oriented Hospitalist Results - Labs Result Diagrams: 06/12/20 10:16 06/12/20 10:16 Lab results: WBC 4.1 thou/uL (4.8-10.8) L 06/12/20 10:16 Hgb 11.6 g/dL (12.0-16.0) L 06/12/20 10:16 Hct 34.0 % (36.0-47.0) L 06/12/20 10:16 MCV 96.4 fL (78.0-98.0) 06/12/20 10:16 Plt Count 142 thou/uL (130-400) 06/12/20 10:16 Neutrophils % 56.9 % (42.0-75.0) 06/12/20 10:16 Sodium 137 mmol/L (136-145) 06/12/20 10:16 Potassium 3.6 mmol/L (3.5-5.1) 06/12/20 10:16 Chloride 99 mmol/L (98-107) 06/12/20 10:16 Carbon Dioxide 19 mmol/L (23-31) L 06/12/20 10:16 BUN 51 mg/dL (9.8-20.1) H 06/12/20 10:16 Creatinine 4.73 mg/dL (0.6-1.1) H 06/12/20 10:16 Glucose 172 mg/dL (83-110) H 06/12/20 10:16 Calcium 8.7 mg/dL (7.8-10.44) 06/12/20 10:16 Total Bilirubin 0.6 mg/dL (0.2-1.2) 06/12/20 10:16 AST 26 U/L (5-34) 06/12/20 10:16 ALT 12 U/L (8-55) 06/12/20 10:16 Alkaline Phosphatase 125 U/L (40-110) H 06/12/20 10:16 Ammonia 153 umol/L (18-72) H 06/12/20 10:16 Troponin I 0.022 ng/mL (< 0.028) 06/12/20 10:16 Serum Total Protein 7.5 g/dL (6.0-8.3) 06/12/20 10:16 Albumin 3.5 g/dL (3.4-4.8) 06/12/20 10:16 - EKG Interpretation EK lead EKG shows normal sinus rhythm, Rate (beats per minute): 71, with no ectopics, Conduction normal, ST segments normal, T waves, flattened, Leads affected: I, Leads affected: II, Leads affected: III, Leads affected: aVr, Leads affected: aVl, Leads affected: aVf, Leads affected: V1, Leads affected: V5, Leads affected: V6, Simms normal, Other findings include:, Poor anterior R wave progression, prolonged QTc, Clinical impression:, non-specific EKG. - Radiology Interpretation CT scan - head Status: image reviewed by me Additional Comment: CT brain showing no acute intracranial process Hospitalist H&P A/P - Problem (1) Hepatic encephalopathy Code(s): K72.90 - HEPATIC FAILURE, UNSPECIFIED WITHOUT COMA Status: Acute (2) ESRD (end stage renal disease) on dialysis Code(s): N18.6 - END STAGE RENAL DISEASE; Z99.2 - DEPENDENCE ON RENAL DIALYSIS Status: Chronic (3) CAD (coronary artery disease) Code(s): I25.10 - ATHSCL HEART DISEASE OF [place] CORONARY ARTERY W/O ANG PCTRS Status: Chronic Qualifiers: Coronary Disease-Associated Artery/Lesion type: [place] artery [place] vs. transplanted heart: [place] heart Associated angina: without angina Qualified Code(s): I25.10 - Atherosclerotic heart disease of [place] coronary artery without angina pectoris (4) Cirrhosis of liver Code(s): K74.60 - UNSPECIFIED CIRRHOSIS OF LIVER Status: Chronic Qualifiers: Hepatic cirrhosis type: unspecified hepatic cirrhosis Ascites presence: without ascites Qualified Code(s): K74.60 - Unspecified cirrhosis of liver (5) Coronary artery disease Code(s): I25.10 - ATHSCL HEART DISEASE OF [place] CORONARY ARTERY W/O ANG PCTRS Status: Chronic Qualifiers: Coronary Disease-Associated Artery/Lesion type: [place] artery [place] vs. 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: with shelter use Diabetes me llitus complication status: with kidney complications Diabetes mellitus c omplication detail: with other kidney complication Qualified Code(s): E11.29 - Type 2 diabetes mellitus with other diabetic kidney complication; Z79.4 - halfway (current) use of insulin (7) HLD (hyperlipidemia) Code(s): E78.5 - HYPERLIPIDEMIA, UNSPECIFIED Status: Chronic (8) HTN (hypertension) Code(s): I10 - ESSENTIAL (PRIMARY) HYPERTENSION Status: Chronic Qualifiers: Hypertension type: essential hypertension Qualified Code(s): I10 - Essential (primary) hypertension (9) Hypothyroidism Code(s): E03.9 - HYPOTHYROIDISM, UNSPECIFIED Status: Chronic Qualifiers: Hypothyroidism type: unspecified Qualified Code(s): E03.9 - Hypothyroidism, unspecified (10) Moderate aortic stenosis Code(s): I35.0 - NONRHEUMATIC AORTIC (VALVE) STENOSIS Status: Chronic (11) Portal hypertension Code(s): K76.6 - PORTAL HYPERTENSION Status: Chronic - Plan Plan: Plan Observation to medical floor Patient will be given several doses of lactulose and will repeat ammonia level tomorrow Nephrology will be consulted for maintenance of dialysis Her home medication will be reconciled Expecting her discharge in next 24 to 48 hours. DVT prophylaxis SCD GI prophylaxis Pepcid CODE STATUS patient is full code
--- NOTE | 2020-06-12 12:56 | PDOC.NEPPN ---
- Subjective Encounter Date: 06/12/20 Subjective: 80 y/o female with ESRD from hepatorenal syndrome admitted due to acute mental status change. Patient missed HD on 06/10/2020. Denied nausea, vomiting, dysuria, abdominal pain, SOB, Chest pain or headache. - Objective Result Diagrams: 06/13/20 05:55 06/13/20 05:55 - Exam General Appearance: awake alert Eye: anicteric sclera ENT: normocephalic atraumatic, moist mucosa Neck: supple, symmetric, no JVD Respiratory: no rales, no ronchi, normal chest expansion, no tachypnea Respiratory - other findings: fair air entry bilaterally. Cardiovascular: RRR, murmur present Gastrointestinal: soft, non-tender, non-distended, normal bowel sounds Extremities: no edema Neurological: CN's grossly intact, no focal deficits PSYCH: oriented to person Nephrology Results - Labs Result Diagrams: 06/13/20 05:55 06/13/20 05:55 Lab results: WBC 4.1 thou/uL (4.8-10.8) L 06/12/20 10:16 Hgb 11.6 g/dL (12.0-16.0) L 06/12/20 10:16 Hct 34.0 % (36.0-47.0) L 06/12/20 10:16 MCV 96.4 fL (78.0-98.0) 06/12/20 10:16 Plt Count 142 thou/uL (130-400) 06/12/20 10:16 Neutrophils % 56.9 % (42.0-75.0) 06/12/20 10:16 Sodium 137 mmol/L (136-145) 06/12/20 10:16 Potassium 3.6 mmol/L (3.5-5.1) 06/12/20 10:16 Chloride 99 mmol/L (98-107) 06/12/20 10:16 Carbon Dioxide 19 mmol/L (23-31) L 06/12/20 10:16 BUN 51 mg/dL (9.8-20.1) H 06/12/20 10:16 Creatinine 4.73 mg/dL (0.6-1.1) H 06/12/20 10:16 Glucose 172 mg/dL (83-110) H 06/12/20 10:16 Calcium 8.7 mg/dL (7.8-10.44) 06/12/20 10:16 Total Bilirubin 0.6 mg/dL (0.2-1.2) 06/12/20 10:16 AST 26 U/L (5-34) 06/12/20 10:16 ALT 12 U/L (8-55) 06/12/20 10:16 Alkaline Phosphatase 125 U/L (40-110) H 06/12/20 10:16 Ammonia 153 umol/L (18-72) H 06/12/20 10:16 Troponin I 0.022 ng/mL (< 0.028) 06/12/20 10:16 Serum Total Protein 7.5 g/dL (6.0-8.3) 06/12/20 10:16 Albumin 3.5 g/dL (3.4-4.8) 06/12/20 10:16 Sodium 137 mmol/L (136-145) 06/12/20 10:16 Potassium 3.6 mmol/L (3.5-5.1) 06/12/20 10:16 Chloride 99 mmol/L (98-107) 06/12/20 10:16 Carbon Dioxide 19 mmol/L (23-31) L 06/12/20 10:16 Anion Gap 23 mmol/L (10-20) H 06/12/20 10:16 BUN 51 mg/dL (9.8-20.1) H 06/12/20 10:16 Creatinine 4.73 mg/dL (0.6-1.1) H 06/12/20 10:16 Glucose 172 mg/dL (83-110) H 06/12/20 10:16 Calcium 8.7 mg/dL (7.8-10.44) 06/12/20 10:16 Albumin 3.5 g/dL (3.4-4.8) 06/12/20 10:16 Nephrology AP PN - Plan ASSSESSMENT ESRD on HD: last HD was 06/08/2020. Acute metabolic/hepatic encephalopathy Liver cirrhosis. Plan. Will dialyze patient today. Continue other treatments. Monitor vitals. Other treatments to follow depending on hospital course.
[2020-06-12 14:38] LABS: Bacteria/HPF 4+ HPF (None Seen); Bilirubin Negative (Negative); Blood, Urine Trace (Negative); Clarity Turbid (Clear); Glucose, Urine (Dipstick) Normal (Negative); Ketone, Urine Negative (Negative); Leukocyte 500 Leu/uL (Negative); Nitrite Negative (Negative); Protein, Urine (Dipstick) 50 mg/dL (Neg-Trace); RBC/HPF 0-3 HPF (0-3); Specific Gravity, Urine 1.013 (1.002-1.036); Urobilinogen Normal mg/dL (Less than 2); WBC/HPF Greater than 50 HPF (0-3)
[2020-06-12 18:07] LABS: HBSAB Concentration Less than 8.00 mIU/mL; HBSAg Index 0.15 S/CO (0-0.99); Hep B Surf AB Non-Reactive (NonReactive); Hep B Surf Ag Non-Reactive S/CO (NonReactive)
[2020-06-12] MEDS ORDERED: Dextrose 5% in Water 1,000 ML IV PRN (20:13)
[2020-06-12] MEDS ORDERED: Bisacodyl 10 MG SUPP PR PRN (20:13)
[2020-06-12] MEDS ORDERED: Dextrose 50% Abboject 50 ML SYRINGE SLOW IVP PRN (20:13)
[2020-06-12] MEDS ORDERED: Calcium Carbonate 500 MG ChewTAB PO PRN (20:13)
[2020-06-12] MEDS ORDERED: Senokot S 8.6-50 MG TAB PO PRN (20:13)
[2020-06-12] MEDS ORDERED: Ondansetron PF 4 MG/2 ML Vial IVP PRN (20:13)
[2020-06-12] MEDS ORDERED: Acetaminophen 325 MG TAB PO PRN (20:13)
[2020-06-12] MEDS ORDERED: Guaifenesin DM 100-10/5 ML UDCUP PO PRN (20:13)
[2020-06-12] MEDS ORDERED: Ondansetron ODT 4 MG TAB PO PRN (20:13)
[2020-06-12] MEDS ORDERED: HumaLOG 300 UNITS/3 ML VIAL SC PRN ×2 (20:13)
--- NOTE | 2020-06-12 20:51 | PDOC.NEPPN ---
- Subjective Encounter Date: 06/12/20 Subjective: 80 y/o female with ESRD from hepaorenal syndrome admitted due to acute mental status change. Patient missed HD on 06/10/2020. - Objective Vital Signs & Weight: Vital Signs (12 hours) Temp Pulse Resp BP Pulse Ox 06/12/20 20:13 97.5 F L 84 18 145/54 H 100 06/12/20 19:18 97.5 F L 84 20 145/54 H 99 Weight Weight 136 lb 4 oz Result Diagrams: 06/13/20 05:55 06/13/20 05:55 - Exam General Appearance: awake alert ENT: normocephalic atraumatic, moist mucosa Neck: symmetric, no JVD Respiratory: CTAB, no ronchi, normal chest expansion Cardiovascular: RRR, murmur present Gastrointestinal: soft, non-tender, non-distended, normal bowel sounds Extremities: no cyanosis, no edema Neurological: CN's grossly intact, no focal deficits PSYCH: oriented to person Nephrology Results - Labs Result Diagrams: 06/13/20 05:55 06/13/20 05:55 Lab results: WBC 4.1 thou/uL (4.8-10.8) L 06/12/20 10:16 Hgb 11.6 g/dL (12.0-16.0) L 06/12/20 10:16 Hct 34.0 % (36.0-47.0) L 06/12/20 10:16 MCV 96.4 fL (78.0-98.0) 06/12/20 10:16 Plt Count 142 thou/uL (130-400) 06/12/20 10:16 Neutrophils % 56.9 % (42.0-75.0) 06/12/20 10:16 Sodium 137 mmol/L (136-145) 06/12/20 10:16 Potassium 3.6 mmol/L (3.5-5.1) 06/12/20 10:16 Chloride 99 mmol/L (98-107) 06/12/20 10:16 Carbon Dioxide 19 mmol/L (23-31) L 06/12/20 10:16 BUN 51 mg/dL (9.8-20.1) H 06/12/20 10:16 Creatinine 4.73 mg/dL (0.6-1.1) H 06/12/20 10:16 Glucose 172 mg/dL (83-110) H 06/12/20 10:16 Calcium 8.7 mg/dL (7.8-10.44) 06/12/20 10:16 Total Bilirubin 0.6 mg/dL (0.2-1.2) 06/12/20 10:16 AST 26 U/L (5-34) 06/12/20 10:16 ALT 12 U/L (8-55) 06/12/20 10:16 Alkaline Phosphatase 125 U/L (40-110) H 06/12/20 10:16 Ammonia 153 umol/L (18-72) H 06/12/20 10:16 Troponin I 0.022 ng/mL (< 0.028) 06/12/20 10:16 Serum Total Protein 7.5 g/dL (6.0-8.3) 06/12/20 10:16 Albumin 3.5 g/dL (3.4-4.8) 06/12/20 10:16 Urine Ketones Negative mg/dL (Negative) 06/12/20 14:07 Urine Blood Trace (Negative) A 06/12/20 14:07 Urine Nitrite Negative (Negative) 06/12/20 14:07 Ur Leukocyte Esterase 500 Reagan/uL (Negative) A 06/12/20 14:07 Urine RBC 0-3 HPF (0-3) 06/12/20 14:07 Urine WBC Greater than 50 HPF (0-3) A 06/12/20 14:07 Ur Squamous Epith Cells 4-6 HPF (0-3) A 06/12/20 14:07 Urine Bacteria 4+ HPF (None Seen) A 06/12/20 14:07 Sodium 137 mmol/L (136-145) 06/12/20 10:16 Potassium 3.6 mmol/L (3.5-5.1) 06/12/20 10:16 Chloride 99 mmol/L (98-107) 06/12/20 10:16 Carbon Dioxide 19 mmol/L (23-31) L 06/12/20 10:16 Anion Gap 23 mmol/L (10-20) H 06/12/20 10:16 BUN 51 mg/dL (9.8-20.1) H 06/12/20 10:16 Creatinine 4.73 mg/dL (0.6-1.1) H 06/12/20 10:16 Glucose 172 mg/dL (83-110) H 06/12/20 10:16 Calcium 8.7 mg/dL (7.8-10.44) 06/12/20 10:16 Albumin 3.5 g/dL (3.4-4.8) 06/12/20 10:16 Nephrology AP PN - Plan ESRD on HD: last HD was 06/08/2020. Acute metabolic encephalopathy Liver cirrhosis. Plan. Will dialyze patient today. Continue other treatments. Monitor vitals. Other treatments to follow depending on hospital course.
[2020-06-12] MEDS: Rifaximin 550 MG TAB PO SCH (22:42)
[2020-06-13 06:07] LABS: SARS-CoV-2 MS2 Positive; SARS-CoV-2 N Gene Negative; SARS-CoV-2 S Gene Negative; SARS-CoV-2 by NAA Not Detected (NotDetected); SARS-CoV-2 orf1ab Negative
[2020-06-13 06:38] LABS: #Basophils 0.1 thou/uL (0.0-0.2); #Eosinphils 0.1 thou/uL (0.0-0.7); #Lymphocytes 1.5 thou/uL (1.20-3.40); #Monocytes 0.6 thou/uL (0.11-0.59); #Neutrophils 2.6 thou/uL (1.40-6.50); %Basophils 1.2 % (0.0-1.0); %Eosinophils 1.8 % (0.0-10.0); %Lymphocytes 30.9 % (21.0-51.0); %Monocytes 12.7 % (0.0-10.0); %Neutrophils 53.4 % (42.0-75.0); Hemoglobin 11.1 g/dL (12.0-16.0); Mean Corpuscular HGB CONC 33.7 g/dL (32.0-36.0); Mean Corpuscular Hemoglobin 32.8 pg (27.0-31.0); Mean Corpuscular Volume 97.1 fL (78.0-98.0); Mean Platelet Volume 6.5 fL (7.4-10.4); Platelet Count 148 thou/uL (130-400); RBC Distribution Width 13.2 % (11.5-14.5); White Blood Cell (WBC) Count 4.9 thou/uL (4.8-10.8)
[2020-06-13 07:16] LABS: ALT (SGPT) 19 U/L (8-55); AST (SGOT) 45 U/L (5-34); Alkaline Phosphatase 103 U/L (40-110); BUN (Urea Nitrogen) 26 mg/dL (9.8-20.1); Bilirubin, Total 0.8 mg/dL (0.2-1.2); Calc. Creatinine Clearance 14 mL/min (70-130); Calcium 8.5 mg/dL (7.8-10.44); Carbon Dioxide 19 mmol/L (23-31); Chloride 100 mmol/L (98-107); Globulin 3.8 g/dL (2.4-3.5); Glucose 107 mg/dL (83-110); Potassium 3.9 mmol/L (3.5-5.1); Protein, Total 6.8 g/dL (6.0-8.3); Sodium 135 mmol/L (136-145)
[2020-06-13 07:58] LABS: Anion Gap 20 mmol/L (10-20)
[2020-06-13] MEDS: Rifaximin 550 MG TAB PO SCH (08:37)
[2020-06-13] MEDS ORDERED: FLU VACC QS2020-21(65YR UP)/PF 240 MCG/0.7 ML SYRINGE IM ONE (09:00)
[2020-06-13] MEDS ORDERED: Famotidine 20 MG TAB PO SCH (09:00)
--- NOTE | 2020-06-13 10:53 | PDOC.NEPPN ---
- Subjective Encounter Date: 06/13/20 Subjective: Seen during dialysis. Feeling better. tolerating treatment well so far. No nausea, vomiting or SOB. - Objective Vital Signs & Weight: Vital Signs (12 hours) Temp Pulse Resp BP Pulse Ox 06/13/20 08:14 97.9 F 80 20 134/66 95 06/13/20 05:00 98.1 F 77 16 129/66 100 06/13/20 01:09 97.9 F 71 16 130/61 96 Weight Weight 136 lb I&O: 06/12/20 06/13/20 06/14/20 06:59 06:59 06:59 Intake Total 310 Balance 310 Result Diagrams: 06/13/20 05:55 06/13/20 05:55 Additional Labs: Accuchecks 06/13/20 06/12/20 05:35 20:51 POC Glucose 122 H 160 H Nephrology ROS - Medication Medications: Active Medications Generic Name Dose Route Start Last Admin Trade Name Freq PRN Reason Stop Dose Admin Famotidine 20 mg 06/13/20 09:00 06/13/20 08:37 Famotidine 20 Mg Tab PO 20 mg DAILY CHAPARRO Administration Lactulose 20 gm 06/12/20 21:00 06/13/20 08:37 Lactulose 20 Gm/30 Ml Udcup PO 20 gm QID CHAPARRO Administration Rifaximin 550 mg 06/12/20 21:00 06/13/20 08:37 Rifaximin 550 Mg Tab PO 550 mg BID CHAPARRO Administration - Exam General Appearance: awake alert Eye: anicteric sclera ENT: normocephalic atraumatic, moist mucosa Neck: supple, symmetric, no JVD Respiratory: CTAB Cardiovascular: RRR, murmur present Gastrointestinal: soft, non-tender, non-distended, normal bowel sounds Extremities: no cyanosis, no edema Neurological: CN's grossly intact, no focal deficits PSYCH: A&O x 3 Nephrology Results - Labs Result Diagrams: 06/13/20 05:55 06/13/20 05:55 Lab results: WBC 4.9 thou/uL (4.8-10.8) 06/13/20 05:55 Hgb 11.1 g/dL (12.0-16.0) L 06/13/20 05:55 Hct 33.0 % (36.0-47.0) L 06/13/20 05:55 MCV 97.1 fL (78.0-98.0) 06/13/20 05:55 Plt Count 148 thou/uL (130-400) 06/13/20 05:55 Neutrophils % 53.4 % (42.0-75.0) 06/13/20 05:55 Sodium 135 mmol/L (136-145) L 06/13/20 05:55 Potassium 3.9 mmol/L (3.5-5.1) 06/13/20 05:55 Chloride 100 mmol/L (98-107) 06/13/20 05:55 Carbon Dioxide 19 mmol/L (23-31) L 06/13/20 05:55 BUN 26 mg/dL (9.8-20.1) H 06/13/20 05:55 Creatinine 3.06 mg/dL (0.6-1.1) H 06/13/20 05:55 Glucose 107 mg/dL (83-110) 06/13/20 05:55 Calcium 8.5 mg/dL (7.8-10.44) 06/13/20 05:55 Total Bilirubin 0.8 mg/dL (0.2-1.2) 06/13/20 05:55 AST 45 U/L (5-34) H 06/13/20 05:55 ALT 19 U/L (8-55) 06/13/20 05:55 Alkaline Phosphatase 103 U/L (40-110) 06/13/20 05:55 Ammonia 143 umol/L (18-72) H 06/13/20 05:55 Troponin I 0.022 ng/mL (< 0.028) 06/12/20 10:16 Serum Total Protein 6.8 g/dL (6.0-8.3) 06/13/20 05:55 Albumin 3.0 g/dL (3.4-4.8) L 06/13/20 05:55 Urine Ketones Negative mg/dL (Negative) 06/12/20 14:07 Urine Blood Trace (Negative) A 06/12/20 14:07 Urine Nitrite Negative (Negative) 06/12/20 14:07 Ur Leukocyte Esterase 500 Reagan/uL (Negative) A 06/12/20 14:07 Urine RBC 0-3 HPF (0-3) 06/12/20 14:07 Urine WBC Greater than 50 HPF (0-3) A 06/12/20 14:07 Ur Squamous Epith Cells 4-6 HPF (0-3) A 06/12/20 14:07 Urine Bacteria 4+ HPF (None Seen) A 06/12/20 14:07 Sodium 135 mmol/L (136-145) L 06/13/20 05:55 Potassium 3.9 mmol/L (3.5-5.1) 06/13/20 05:55 Chloride 100 mmol/L (98-107) 06/13/20 05:55 Carbon Dioxide 19 mmol/L (23-31) L 06/13/20 05:55 Anion Gap 20 mmol/L (10-20) 06/13/20 05:55 BUN 26 mg/dL (9.8-20.1) H 06/13/20 05:55 Creatinine 3.06 mg/dL (0.6-1.1) H 06/13/20 05:55 Glucose 107 mg/dL (83-110) 06/13/20 05:55 Calcium 8.5 mg/dL (7.8-10.44) 06/13/20 05:55 Albumin 3.0 g/dL (3.4-4.8) L 06/13/20 05:55 Nephrology AP PN - Plan ESRD on HD: last HD was 06/12/2020. Acute metabolic/hepatic encephalopathy Liver cirrhosis. Plan. Will dialyze patient today. Continue other treatments. Can be discharged from nephrology point of view after Hemodialysis. Advised to continue outpatient treatments according to usual schedule.
--- NOTE | 2020-06-13 15:32 | PDOC.HOSPP ---
- Subjective Encounter Date: 06/13/20 Encounter Time: 15:29 Subjective: Ms. Sung was seen today in follow-up of hepatic encephalopathy. She says she feels much better today. She has ambulated with PT without difficulty. - Objective Vital Signs & Weight: Vital Signs (12 hours) Temp Pulse Resp BP Pulse Ox 06/13/20 12:57 97.3 F L 88 18 132/68 100 06/13/20 08:14 97.9 F 80 20 134/66 95 06/13/20 05:00 98.1 F 77 16 129/66 100 Weight Weight 136 lb I&O: 06/12/20 06/13/20 06/14/20 06:59 06:59 06:59 Intake Total 310 Balance 310 Result Diagrams: 06/13/20 05:55 06/13/20 05:55 Additional Labs: Accuchecks 06/13/20 06/13/20 06/12/20 12:51 05:35 20:51 POC Glucose 92 122 H 160 H Hospitalist ROS - Medication Medications: Active Medications Generic Name Dose Route Start Last Admin Trade Name Freq PRN Reason Stop Dose Admin Famotidine 20 mg 06/13/20 09:00 06/13/20 08:37 Famotidine 20 Mg Tab PO 20 mg DAILY CHAPARRO Administration Lactulose 20 gm 06/12/20 21:00 06/13/20 13:07 Lactulose 20 Gm/30 Ml Udcup PO 20 gm QID CHAPARRO Administration Rifaximin 550 mg 06/12/20 21:00 06/13/20 08:37 Rifaximin 550 Mg Tab PO 550 mg BID CHAPARRO Administration - Exam Eye: PERRL, anicteric sclera Heart: RRR, no murmur, no gallops, no rubs, normal peripheral pulses Respiratory: CTAB (+ occasional rhonchi), no wheezes, no rales, normal chest expansion Gastrointestinal: soft, non-tender, non-distended, normal bowel sounds, no palpable masses Extremities: no cyanosis, 1+ LE edema Hosp A/P (1) Hepatic encephalopathy Code(s): K72.90 - HEPATIC FAILURE, UNSPECIFIED WITHOUT COMA Status: Acute (2) UTI (urinary tract infection) Status: Acute Qualifiers: Urinary tract infection type: acute cystitis Hematuria presence: without hematuria Qualified Code(s): N30.00 - Acute cystitis without hematuria (3) Type 2 NC (myocardial infarction) Code(s): I21.A1 - MYOCARDIAL INFARCTION TYPE 2 Status: Acute (4) CAD (coronary artery disease) Code(s): I25.10 - ATHSCL HEART DISEASE OF [place] CORONARY ARTERY W/O ANG PCTRS Status: Chronic Qualifiers: Coronary Disease-Associated Artery/Lesion type: [place] artery [place] vs. transplanted heart: [place] heart Associated angina: without angina Qualified Code(s): I25.10 - Atherosclerotic heart disease of [place] coronary artery without angina pectoris (5) HTN (hypertension) Code(s): I10 - ESSENTIAL (PRIMARY) HYPERTENSION Status: Chronic Qualifiers: Hypertension type: essential hypertension Qualified Code(s): I10 - Essential (primary) hypertension (6) Hypothyroidism Code(s): E03.9 - HYPOTHYROIDISM, UNSPECIFIED Status: Chronic Qualifiers: Hypothyroidism type: unspecified Qualified Code(s): E03.9 - Hypothyroidism, unspecified - Plan * Hepatic Encephalopathy- likely due to UTI- will start Levaquin renal dose * DM- blood glucose is stable * HTN- blood pressure is stable * Hypothyroidism- clinically euthyroid * Stable for discharge home
[2020-06-13 16:35] VITALS: BP 128/66; TEMP 97.9
--- NOTE | 2020-06-13 16:38 | PDOC.DS.DS ---
Provider - Provider Date of Admission: 06/12/20 11:14 Date of Discharge: 06/13/20 Admitting Provider: Genevieve Joseph MD Consultations: Nephrology Primary Care Physician: Will Sepulveda MD Course - Hospital Course Hospital Course: Ms. Sung is a 80-year-old female that has end-stage renal disease and she is on hemodialysis. She also has a history of cirrhosis of the liver. She has a history of hepatic encephalopathy and is on rifaximin as well as lactulose at home. She had not been feeling well and she missed her dialysis. It was later noted that she became lethargic and was having decreased coherency. She was brought to the hospital where she was found to be in hepatic encephalopathy with an elevated ammonia level. She was hospitalized in given additional lactulose. She was also dialyzed by her crankshaft balancer. The following morning she was essentially back to her baseline. She had ambulated without difficulty. Her appetite had improved. Also in the course of her evaluation she was found to have findings consistent with a urinary tract infection. It is possible that the urinary tract infection could have caused the decompensation of her hepatic encephalopathy. For this reason she will be started on Levaquin due to her penicillin allergy and Rocephin allergy. And this will be dosed for renal function and she can be discharged home on the same dose of rifaximin as well as lactulose. Pertinent Studies: CT scan of the brain Resuscitation Status: 06/12/20 11:37 Resuscitation Status Routine Resuscitation Status: FULL: Full Resuscitation - Labs Lab Results: 06/13/20 05:55 06/13/20 05:55 Abnormal Lab Results - Last 48 hrs 06/12/20 10:16: WBC 4.1 L, RBC 3.52 L, Hgb 11.6 L, Hct 34.0 L, MCH 32.9 H, MPV 6.4 L, Monocytes % 10.2 H 06/12/20 10:16: Ammonia 153 H 06/12/20 10:16: Carbon Dioxide 19 L, Anion Gap 23 H, BUN 51 H, Creatinine 4.73 H, Alkaline Phosphatase 125 H, Globulin 4.0 H, Albumin/Globulin Ratio 0.9 L 06/12/20 14:07: Urine Clarity Turbid A, Urine Protein 50 A, Urine Blood Trace A, Ur Leukocyte Esterase 500 A, Urine WBC Greater than 50 A, Ur Squamous Epith Cells 4-6 A, Urine Bacteria 4+ A 06/13/20 05:55: Sodium 135 L, Carbon Dioxide 19 L, BUN 26 H, Creatinine 3.06 H, AST 45 H, Albumin 3.0 L, Globulin 3.8 H, Albumin/Globulin Ratio 0.8 L 06/13/20 05:55: RBC 3.40 L, Hgb 11.1 L, Hct 33.0 L, MCH 32.8 H, MPV 6.5 L, Monocytes % 12.7 H, Basophils % 1.2 H, Monocytes # 0.6 H 06/13/20 05:55: Ammonia 143 H - Physical Exam Vitals: Vital Signs (12 hours) Temp Pulse Resp BP Pulse Ox 06/13/20 16:34 97.9 F 86 18 128/66 98 06/13/20 12:57 97.3 F L 88 18 132/68 100 06/13/20 08:14 97.9 F 80 20 134/66 95 06/13/20 05:00 98.1 F 77 16 129/66 100 Weight Weight 136 lb Physical Exam: The patient was seen and examined on the day of discharge. Problem - Problem (1) Hepatic encephalopathy Code(s): K72.90 - HEPATIC FAILURE, UNSPECIFIED WITHOUT COMA Status: Acute (2) UTI (urinary tract infection) Status: Acute Qualifiers: Urinary tract infection type: acute cystitis Hematuria presence: without hematuria Qualified Code(s): N30.00 - Acute cystitis without hematuria (3) Type 2 NH (myocardial infarction) Code(s): I21.A1 - MYOCARDIAL INFARCTION TYPE 2 Status: Acute (4) CAD (coronary artery disease) Code(s): I25.10 - ATHSCL HEART DISEASE OF [place] CORONARY ARTERY W/O ANG PCTRS Status: Chronic Qualifiers: Coronary Disease-Associated Artery/Lesion type: [place] artery [place] vs. tr ansplanted heart: [place] heart Associated angina: without angina Qualified Code(s): I25.10 - Atherosclerotic heart disease of [place] coronary artery without angina pectoris (5) HTN (hypertension) Code(s): I10 - ESSENTIAL (PRIMARY) HYPERTENSION Status: Chronic Qualifiers: Hypertension type: essential hypertension Qualified Code(s): I10 - Essential (primary) hypertension (6) Hypothyroidism Code(s): E03.9 - HYPOTHYROIDISM, UNSPECIFIED Status: Chronic Qualifiers: Hypothyroidism type: unspecified Qualified Code(s): E03.9 - Hypothyroidism, unspecified (7) ESRD (end stage renal disease) on dialysis Code(s): N18.6 - END STAGE RENAL DISEASE; Z99.2 - DEPENDENCE ON RENAL DIALYSIS Status: Chronic Plan - Discharge Medications Prescriptions: Levofloxacin [Levaquin] 250 mg PO Q2DAYS #3 tab Home Medications: Medication Instructions Recorded Confirmed Type Rifaximin [Xifaxan] 550 mg PO BID #60 tablet 07/21/18 06/13/20 Rx Carvedilol [Coreg] 6.25 mg PO BID #60 tab 09/26/18 06/13/20 Rx Ferrous Sulfate 325 mg PO DAILY 03/23/19 06/13/20 History hydrOXYzine [Atarax] 10 mg PO Q8H PRN 11/12/19 06/13/20 History Insulin Detemir [Levemir Flextouch] 10 unit SQ QAM 01/17/20 06/13/20 History Aspirin [Aspirin EC] 1 tab PO DAILY 05/14/20 06/13/20 History Betamethasone Valerate 1 applic TOP BID 05/14/20 06/13/20 History [Betamethasone Valerate 0.1% Cream] Levothyroxine Sodium [Synthroid] 75 mcg PO QAM 05/14/20 06/13/20 History PARoxetine HCl [Paroxetine HCl] 1 tab PO HS 05/14/20 06/13/20 History Triamcinolone Acetonide [Kenalog 1 applic TOP BID 05/14/20 06/13/20 History 0.1% Cream] Hydrocortisone [Hydrocortisone 1 applic TOP BID 05/15/20 06/13/20 History 2.5% Ointment] Lactulose 30 gm PO TID #0 udcup 05/16/20 06/13/20 Rx Levofloxacin [Levaquin] 250 mg PO Q2DAYS #3 tab 06/13/20 Rx Sevelamer Carbonate [Renvela] 1,600 mg PO TID-WM 06/13/20 06/13/20 History Allergies: naproxen sodium [From Aleve] Allergy (Mild, Verified 06/12/20 20:17) blisters CAUSES SHAKING PER PT ceftriaxone [From Rocephin] Allergy (Unknown, Verified 06/12/20 20:17) swelling acetaminophen [From Tylenol] Allergy (Verified 06/12/20 20:17) hydrocodone Allergy (Verified 06/12/20 20:17) +++ drowsy meropenem Adverse Reaction (Verified 06/12/20 20:17) Rash rash on various areas of her body - Discharge Instructions Discharge Instructions:: YOUR PRESCRIPTIONS WERE SENT TO: [facility] [place] [id number] FOLLOW UP WITH PCP IN 7 DAYS Activity:: Activity as Tolerated Nourishment:: Renal Diet - Follow up Plan Referrals: Bryson Russo MD [Active] - Disposition: HOME Quality - Care Measures CORE MEASURES:: N/A
== END 2020-06-13 17:00 | disposition home or self-care (01) ==
LOC: ERS 09:40 → T4-B 11:14
PROVIDERS: ADMIT Internal Medicine; ATTEND Internal Medicine
DX: K72.90 Hepatic failure, unspecified without coma (principal); N30.00 Acute cystitis without hematuria; I12.0 Hypertensive chronic kidney disease with stage 5 chronic kidney disease or end stage renal disease; E11.22 Type 2 diabetes mellitus with diabetic chronic kidney disease; N18.6 End stage renal disease; I25.10 Atherosclerotic heart disease of native coronary artery without angina pectoris; I21.A1 Myocardial infarction type 2; E03.9 Hypothyroidism, unspecified; F32.9 Major depressive disorder, single episode, unspecified; K74.60 Unspecified cirrhosis of liver; Z79.4 Long term (current) use of insulin; Z79.82 Long term (current) use of aspirin; Z79.899 Other long term (current) drug therapy; Z88.0 Allergy status to penicillin; Z88.1 Allergy status to other antibiotic agents; Z88.5 Allergy status to narcotic agent; Z88.6 Allergy status to analgesic agent; Z95.0 Presence of cardiac pacemaker; Z95.1 Presence of aortocoronary bypass graft; Z99.2 Dependence on renal dialysis; Z20.828 Contact with and (suspected) exposure to other viral communicable diseases
CPT/HCPCS: 70450; 80053 ×2; 82140 ×2; 82962 ×2; 84484; 85025 ×2; 86706; 87340; 93005; 97139; 99285; U0003; 36415; 36416; 81003; 81015; 87635; 90935; G0257; G0378

== ENCOUNTER 2020-07-09 17:14 | Inpatient (IN) | payer MEDICARE ==
[2020-07-09 17:45] LABS: #Basophils 0.1 thou/uL (0.0-0.2); #Eosinphils 0.2 thou/uL (0.0-0.7); #Lymphocytes 1.2 thou/uL (1.20-3.40); #Monocytes 0.7 thou/uL (0.11-0.59); #Neutrophils 3.4 thou/uL (1.40-6.50); %Eosinophils 2.9 % (0.0-10.0); %Lymphocytes 21.6 % (21.0-51.0); %Monocytes 12.2 % (0.0-10.0); %Neutrophils 62.2 % (42.0-75.0); Mean Corpuscular HGB CONC 34.6 g/dL (32.0-36.0); Mean Corpuscular Hemoglobin 32.5 pg (27.0-31.0); Mean Corpuscular Volume 93.9 fL (78.0-98.0); Mean Platelet Volume 6.7 fL (7.4-10.4); Platelet Count 146 thou/uL (130-400); RBC Distribution Width 13.2 % (11.5-14.5); Red Blood Cell (RBC) Count 4.01 mill/uL (4.20-5.40); White Blood Cell (WBC) Count 5.5 thou/uL (4.8-10.8)
[2020-07-09 18:09] LABS: ALT (SGPT) 13 U/L (8-55); AST (SGOT) 27 U/L (5-34); Albumin 3.5 g/dL (3.4-4.8); Alkaline Phosphatase 135 U/L (40-110); Anion Gap 17 mmol/L (10-20); BUN (Urea Nitrogen) 25 mg/dL (9.8-20.1); Bilirubin, Total 0.7 mg/dL (0.2-1.2); Calc. Creatinine Clearance 0 mL/min (70-130); Calcium 8.8 mg/dL (7.8-10.44); Carbon Dioxide 22 mmol/L (23-31); Chloride 100 mmol/L (98-107); Globulin 4.2 g/dL (2.4-3.5); Glucose 236 mg/dL (83-110); Potassium 3.4 mmol/L (3.5-5.1); Protein, Total 7.7 g/dL (6.0-8.3); Sodium 136 mmol/L (136-145)
--- NOTE | 2020-07-09 19:41 | CT ---
CT OF BRAIN PERFORMED WITHOUT CONTRAST ENHANCEMENT: History: Altered mental status. Comparison: 06-12-2020 FINDINGS: Some generalized ventricular and sulcal prominence with decreased attenuation of the periventricular white matter consistent with some chronic white matter change. No intracerebral hemorrhage or extraax ial fluid collections. Mastoid air cells and visualized sinuses are clear. IMPRESSION: No acute intracranial abnormalities. POS: OFF
[2020-07-09 19:56] LABS: Bacteria/HPF 4+ HPF (None Seen); Bilirubin Negative (Negative); Blood, Urine 3+ (Negative); Clarity Extra Turbid (Clear); Glucose, Urine (Dipstick) Normal (Negative); Ketone, Urine Negative (Negative); Leukocyte 500 Leu/uL (Negative); Nitrite Negative (Negative); Protein, Urine (Dipstick) 100 mg/dL (Neg-Trace); RBC/HPF Greater than 50 HPF (0-3); Specific Gravity, Urine 1.013 (1.002-1.036); Urobilinogen Normal mg/dL (Less than 2); WBC/HPF Greater than 50 HPF (0-3); pH, Urine 5.5 (5.0-9.0)
--- NOTE | 2020-07-09 21:20 | PDOC.HHP ---
Hospitalist HPI - History of Present Illness Weakness, generalized History of Present Illness: PCP: Dr. Amezcua The H&P was taken from the ER documentation and from reviewing previous records due to the patient's altered mental status. Apparently, the patient completed her dialysis session this morning. Per ER documentation, her spouse reports that she was in good health and feeling "fine". After dialysis, he states that she became generally weak and had difficulty ambulating. He reported that this was unusual for her. Her spouse mention that she has had similar episodes before and they were related to either a urinary tract infection or hepatic encephalopathy. He reports that she has been compliant with her lactulose, however, he had not given her dose this morning prior to dialysis. She has not complained of any dysuria. For these reasons, she was brought to the emergency department for further evaluation. ED Course: VITAL SIGNS ThuJul 09, 2020 17:15 YASMIN Chery Ashleigh BP: 161/68, Pulse: 87, Resp: 18, Temp: 98.1 (Oral), Pain: 0, O2 sat: 99 on (Room Air), Time: 07/09/2020 17:15. VITAL SIGNS ThuJul 09, 2020 18:28 YASMIN Roberts Cheryl BP: 169/57, Pulse: 78, Resp: 17, Pain: 0, O2 sat: 99, Time: 07/09/2020 18:28. VITAL SIGNS ThuJul 09, 2020 19:31 YASMIN Townsend Haley BP: 110/36, MAP: 60, Pulse: 77, Resp: 18, Temp: 98.4 (Oral), Pain: 0, O2 sat: 100 on (Room Air), Time: 07/09/2020 19:31. VITAL SIGNS ThuJul 09, 2020 21:11 YASMIN Townsend Haley BP: 164/110, MAP: 128, Pulse: 77, Resp: 18, Temp: 97.7 (Oral), Pain: 0, O2 sat: 99 on (Room Air), Time: 07/09/2020 21:11. Medications: ciprofloxacin in 5 % dextrose 400 mg IV Piggy Back Given 21:10 07/09/2020 Hospitalist ROS - Review of Systems ROS unobtainable: due to mental status All other systems reviewed; all pertinent +/- noted in HPI/Subj - Medication Medications: Aspirin Childrens TABLET, CHEWABLE : Strength - 81 mg : ORAL Patient Dose: 1 tab(s) Oral once a day. carvedilol TABLET : Strength - 6.25 mg : ORAL Patient Dose: 1 tab(s) Oral 2 times a day. levothyroxine oral TABLET : Strength - 75 mcg : ORAL Patient Dose: 1 tab(s) Oral once a day.ON ODD DAYS OF THE MONTH. hydrOXYzine HCl oral tablet : Strength - 10 mg : ORAL Patient Dose: 1 tab(s) Oral every 8 hours PRN. lactulose packet : Strength - 10 gram : ORAL Patient Dose: 20 g Oral 2 times a day. Levemir U-100 Insulin solution : Strength - 100 unit/mL : SUBCUTANEOUS Patient Dose: 10 units Subcutaneous once a day (in the morning). levothyroxine oral tablet : Strength - 88 mcg : ORAL Patient Dose: 1 tab(s) Oral once a day (in the morning).ON EVEN DAYS OF THE MONTH. PARoxetine HCl tablet : Strength - 10 mg : ORAL Patient Dose: 1 tab(s) Oral once a day (in the evening). Kenalog topical lotion : Strength - 0.1 % : TOPICAL Patient Dose: 1 padmaja Topical 2 times a day. Xifaxan tablet : Strength - 550 mg : ORAL Patient Dose: 1 tab(s) Oral 2 times a day. Allergies: meropenem, naproxen sodium, Rocephin, Tylenol Hospitalist History - Past Medical History Source: RN notes reviewed, old records Cardiac: reports: CAD, HTN Hepatobiliary: reports: Other (Nonspecific portal inflammation) Psych: reports: Depression Musculoskeletal: reports: no pertinent history Rheumatologic: reports: no pertinent history Renal/: reports: Chronic renal failure (ESRD, M/W/F, left upper extremity fistula, followed by Dr. Russo) Endocrine: reports: Diabetes (Type II), Hypothyroidism Dermatology: reports: Psoriasis (previously on humira) - Past Surgical History Past Surgical History: reports: CABG, Other (Left upper extremity HD fistula, pacemaker) - Family History Other Family History: Unable to assess at time of interview. - Social History Smoking Status: Unknown if ever smoked Alcohol: reports: None Drugs: reports: none Living Situation: With Family Occupation: Does not work Activity level: uses cane/walker - Exam General Appearance: awake alert. negative: ill appearing General - other findings: Confused, able to follow commands Eye: PERRL, anicteric sclera ENT: normocephalic atraumatic, dry oral mucosa Neck: supple, no lymphadenopathy Heart: no gallops, no rubs, normal peripheral pulses, III/IV Respiratory: CTAB, no wheezes, no rales, no ronchi, normal chest expansion Gastrointestinal: soft, non-tender, normal bowel sounds, no guarding, no rigidity Gastrointestinal - other findings: Negative Rovsing sign, negative Lawrence sign Extremities: no cyanosis Skin: no rashes Neurological: cranial nerve grossly intact, no focal deficits Psychiatric: normal affect Psychiatric - other findings: Alert, oriented to self Hospitalist Results - Labs Result Diagrams: 07/09/20 17:35 07/09/20 17:35 Lab results: WBC 5.5 thou/uL (4.8-10.8) 07/09/20 17:35 Hgb 13.0 g/dL (12.0-16.0) 07/09/20 17:35 Hct 37.7 % (36.0-47.0) 07/09/20 17:35 MCV 93.9 fL (78.0-98.0) 07/09/20 17:35 Plt Count 146 thou/uL (130-400) 07/09/20 17:35 Neutrophils % 62.2 % (42.0-75.0) 07/09/20 17:35 Sodium 136 mmol/L (136-145) 07/09/20 17:35 Potassium 3.4 mmol/L (3.5-5.1) L 07/09/20 17:35 Chloride 100 mmol/L (98-107) 07/09/20 17:35 Carbon Dioxide 22 mmol/L (23-31) L 07/09/20 17:35 BUN 25 mg/dL (9.8-20.1) H 07/09/20 17:35 Creatinine 2.39 mg/dL (0.6-1.1) H 07/09/20 17:35 Glucose 236 mg/dL (83-110) H 07/09/20 17:35 Calcium 8.8 mg/dL (7.8-10.44) 07/09/20 17:35 Total Bilirubin 0.7 mg/dL (0.2-1.2) 07/09/20 17:35 AST 27 U/L (5-34) 07/09/20 17:35 ALT 13 U/L (8-55) 07/09/20 17:35 Alkaline Phosphatase 135 U/L (40-110) H 07/09/20 17:35 Ammonia 123 umol/L (18-72) H 07/09/20 17:40 Serum Total Protein 7.7 g/dL (6.0-8.3) 07/09/20 17:35 Albumin 3.5 g/dL (3.4-4.8) 07/09/20 17:35 Urine Ketones Negative mg/dL (Negative) 07/09/20 19:30 Urine Blood 3+ (Negative) A 07/09/20 19:30 Urine Nitrite Negative (Negative) 07/09/20 19:30 Ur Leukocyte Esterase 500 Reagan/uL (Negative) A 07/09/20 19:30 Urine RBC Greater than 50 HPF (0-3) A 07/09/20 19:30 Urine WBC Greater than 50 HPF (0-3) A 07/09/20 19:30 Ur Squamous Epith Cells 4-6 HPF (0-3) A 07/09/20 19:30 Urine Bacteria 4+ HPF (None Seen) A 07/09/20 19:30 - EKG Interpretation EK lead EKG interpreted by Emergency Department Physician at time of study, 12 lead EKG shows normal sinus rhythm, Rate (beats per minute): 77, Interpretation:, Conduction with, ST segments normal, T waves normal, [place] normal, Clinical impression:, No acute findings for ischemia at this time. - Radiology Interpretation CT scan - head Status: report reviewed by me Additional Comment: IMPRESSION: No acute intracranial abnormalities. Hospitalist H&P A/P - Problem (1) UTI (urinary tract infection) Status: Acute (2) Hepatic encephalopathy Code(s): K72.90 - HEPATIC FAILURE, UNSPECIFIED WITHOUT COMA Status: Acute (3) Altered mental status Code(s): R41.82 - ALTERED MENTAL STATUS, UNSPECIFIED Status: Acute (4) DM2 (diabetes mellitus, type 2) Status: Chronic Qualifiers: Diabetes mellitus oil heaterman insulin use: with senior living use (5) End stage renal disease on dialysis Code(s): N18.6 - END STAGE RENAL DISEASE; Z99.2 - DEPENDENCE ON RENAL DIALYSIS Status: Chronic (6) CAD (coronary artery disease) Code(s): I25.10 - ATHSCL HEART DISEASE OF [place] CORONARY ARTERY W/O ANG PCTRS Status: Chronic (7) Hypertension Code(s): I10 - ESSENTIAL (PRIMARY) HYPERTENSION Status: Chronic (8) Hypothyroidism Code(s): E03.9 - HYPOTHYROIDISM, UNSPECIFIED Status: Chronic (9) Depression Code(s): F32.9 - MAJOR DEPRESSIVE DISORDER, SINGLE EPISODE, UNSPECIFIED Status: Chronic - Plan Plan: #UTI UA 4+ bacteria, leukocyte esterase, WBC greater than 50 with squamous epithelial cells 05/15 UCX Klebsiella pneumonia Given patient allergies and sensitivities, start Aztreonam Blood/Urine CX pending Consider ID consultation #Hepatic encephalopathy Presented ammonia 123, was 41 on (05/16) Give lactulose and rifaximin x1 dose now Restart home dose lactulose and rifaximin. Recheck ammonia level in a.m. #Altered mental status CT brain negative. Order blood/Urine CX and LA. Likely multifactorial. Likely due to problem #1 and #2. #DM2 Presented BG 236 Takes Lantus 10 units at home. Restart home dose Lantus. Moderate ISS. Accu-Cheks AC at bedtime. #End-stage renal disease on dialysis Scheduled Fridays. Followed by Dr. Russo. Completed entire session prior to admission. Consult Dr. Russo for maintenance dialysis. #CAD Status post CABG and pacemaker. Takes Coreg and aspirin at home. Restart home dose Coreg and aspirin. #Hypertension Presented hypertensive. Restart home dose Coreg. Monitor BP. #Hypothyroidism Check TSH. Restart home dose levothyroxine when reconciled by nursing. #Depression Restart home dose paroxetine. SCDs for DVT prophylaxis. No GI prophylaxis. CODE STATUS is full code. Discussed the case with attending physician, Dr. Nichols, who agrees with plan of care.
[2020-07-09] MEDS ORDERED: Dextrose 5% in Water 1,000 ML IV PRN (21:46)
[2020-07-09] MEDS ORDERED: HumaLOG 300 UNITS/3 ML VIAL SC PRN (21:46)
[2020-07-09] MEDS ORDERED: Dextrose 50% Abboject 50 ML SYRINGE SLOW IVP PRN (21:46)
[2020-07-09] MEDS ORDERED: Ondansetron ODT 4 MG TAB PO PRN (22:17)
[2020-07-09 23:00] LABS: Amphetamine Not Detected (NotDetected); Barbiturates Screen Not Detected (NotDetected); Benzodiazepine Screen Not Detected (NotDetected); Cocaine Metabolite Screen Not Detected (NotDetected); Medtox Control Line Valid? VALID (VALID); Medtox Reader # READER 1; Methadone Not Detected (NotDetected); Methamphetamine Not Detected (NotDetected); Opiate Screen Not Detected (NotDetected); Oxycodone Screen Not Detected (NotDetected); Phencyclidine (PCP) Not Detected (NotDetected); THC/Cannabinoid Screen Not Detected (NotDetected); Tricyclic Screen Not Detected (NotDetected)
[2020-07-09] MEDS ORDERED: Rifaximin 550 MG TAB PO SCH (23:00)
[2020-07-09] MEDS ORDERED: Aztreonam 1 GM in Sodium Chloride 0.9% 100 ML IVPB SCH (23:15)
[2020-07-10 00:01] LABS: Acetaminophen Less than 6.0 mcg/mL (10.0-30.0); Alcohol Less than 10 mg/dL (Less than 10); Salicylate Less than 8.0 mg/dL (15.0-30.0)
[2020-07-10 00:18] VITALS: BMI 27.3
[2020-07-10 03:35] LABS: #Basophils 0.1 thou/uL (0.0-0.2); #Eosinphils 0.2 thou/uL (0.0-0.7); #Lymphocytes 1.4 thou/uL (1.20-3.40); #Monocytes 0.5 thou/uL (0.11-0.59); #Neutrophils 2.1 thou/uL (1.40-6.50); %Basophils 1.2 % (0.0-1.0); %Eosinophils 4.4 % (0.0-10.0); %Lymphocytes 32.7 % (21.0-51.0); %Monocytes 12.4 % (0.0-10.0); %Neutrophils 49.4 % (42.0-75.0); Hemoglobin 11.5 g/dL (12.0-16.0); Mean Corpuscular HGB CONC 34.2 g/dL (32.0-36.0); Mean Corpuscular Hemoglobin 32.3 pg (27.0-31.0); Mean Corpuscular Volume 94.3 fL (78.0-98.0); Mean Platelet Volume 7.3 fL (7.4-10.4); Platelet Count 130 thou/uL (130-400); RBC Distribution Width 13.2 % (11.5-14.5); Red Blood Cell (RBC) Count 3.55 mill/uL (4.20-5.40); White Blood Cell (WBC) Count 4.2 thou/uL (4.8-10.8)
[2020-07-10 03:51] LABS: Anion Gap 17 mmol/L (10-20); BUN (Urea Nitrogen) 30 mg/dL (9.8-20.1); Calc. Creatinine Clearance 16 mL/min (70-130); Calcium 8.5 mg/dL (7.8-10.44); Carbon Dioxide 23 mmol/L (23-31); Chloride 102 mmol/L (98-107); Glucose 148 mg/dL (83-110); Potassium 3.6 mmol/L (3.5-5.1); Sodium 138 mmol/L (136-145)
[2020-07-10] MEDS ORDERED: Cepastat Lozenges 1 LOZ PO PRN (07:47)
[2020-07-10] MEDS ORDERED: hydrALAZINE 20 MG/ML VIAL SLOW IVP PRN (07:47)
[2020-07-10] MEDS ORDERED: Senokot S 8.6-50 MG TAB PO PRN (07:47)
[2020-07-10] MEDS ORDERED: Loperamide HCl 2 MG CAP PO PRN (07:47)
[2020-07-10] MEDS ORDERED: Ondansetron PF 4 MG/2 ML Vial IVP PRN (07:47)
[2020-07-10] MEDS ORDERED: Loratadine 10 MG TAB PO PRN (07:47)
[2020-07-10] MEDS ORDERED: Bisacodyl 10 MG SUPP PR PRN (07:47)
[2020-07-10] MEDS ORDERED: Calcium Carbonate 500 MG ChewTAB PO PRN (07:47)
[2020-07-10] MEDS ORDERED: Sodium Chloride 0.65% Nasal 44 ML BOT EA NARE PRN (07:47)
[2020-07-10] MEDS: Sevelamer Carbonate 800 MG TAB PO SCH ×3 (08:27→17:35)
[2020-07-10] MEDS: Ferrous Sulfate 325 MG TAB PO SCH (08:27)
[2020-07-10] MEDS: Carvedilol 6.25 MG TAB PO SCH ×2 (08:27→20:49)
[2020-07-10] MEDS: Aspirin 81 mg Enteric Coated Tablet PO SCH (08:27)
[2020-07-10] MEDS: Rifaximin 550 MG TAB PO SCH ×2 (08:28→20:49)
[2020-07-10] MEDS: Insulin Glargine 10 UNITS in Pre-Filled Syringe 1 EACH SC SCH (08:28)
[2020-07-10] MEDS ORDERED: Meropenem 500 MG in Sodium Chloride 0.9% 100 ML IVPB SCH (09:00)
[2020-07-10] MEDS ORDERED: Non-Formulary Item 1 EACH (Insulin Detemir [Levemir Flextouch] 100 UNIT/ML Insuln.Pen) SQ SCH (09:00)
--- NOTE | 2020-07-10 09:26 | PDOC.NEPPN ---
- Subjective Encounter Date: 07/10/20 Subjective: 80 y/o female with ESLD associated with Hepatorenal syndrome causing ESRD now on HD admitted due to acute mental status change after HD on 07/09/20. Found to have pyuria concerning for UTI as well as elevated ammonia consistent with hepatic encephalopathy. Feeling better this morning. Remained afebrile. - Objective Vital Signs & Weight: Vital Signs (12 hours) Temp Pulse Resp BP Pulse Ox 07/10/20 08:32 98.0 F 76 18 142/63 H 99 07/10/20 03:00 98.1 F 78 16 174/69 H 100 07/10/20 00:00 100 07/09/20 23:55 97.6 F 77 18 169/74 H 100 Weight Weight 140 lb 4.8 oz Result Diagrams: 07/10/20 03:24 07/10/20 03:24 Additional Labs: Accuchecks 07/10/20 04:34 POC Glucose 137 H Nephrology ROS - Medication Medications: Active Medications Generic Name Dose Route Start Last Admin Trade Name Jomar PRN Reason Stop Dose Admin Aspirin 81 mg 07/10/20 09:00 07/10/20 08:27 Aspirin 81 Mg Enteric Coated Tablet PO 81 mg DAILY CHAPARRO Administration Carvedilol 6.25 mg 07/10/20 09:00 07/10/20 08:27 Carvedilol 6.25 Mg Tab PO 6.25 mg BID CHAPARRO Administration Ferrous Sulfate 325 mg 07/10/20 08:00 07/10/20 08:27 Ferrous Sulfate 325 Mg Tab PO 325 mg QAM-WM CHAPARRO Administration Insulin Glargine 10 units/ 0.1 mls @ 0 mls/hr 07/10/20 09:00 07/10/20 08:28 Miscellaneous Medication SC 0.1 mls QAM CHAPARRO Administration Lactulose 20 gm 07/10/20 09:00 07/10/20 09:00 Lactulose 20 Gm/30 Ml Udcup PO Not Given QID CHAPARRO Rifaximin 550 mg 07/10/20 09:00 07/10/20 08:28 Rifaximin 550 Mg Tab PO 550 mg BID CHAPARRO Administration Sevelamer Carbonate 1,600 mg 07/10/20 08:00 07/10/20 08:27 Sevelamer Carbonate 800 Mg Tab PO 1,600 mg TID-WM CHAPARRO Administration - Exam General Appearance: awake alert ENT: normocephalic atraumatic, moist mucosa Neck: supple, no JVD Respiratory: no wheezes, no rales, no ronchi, normal chest expansion, no tachypnea Cardiovascular: RRR, murmur present Gastrointestinal: soft, non-tender, non-distended, normal bowel sounds Extremities: no cyanosis, no edema Neurological: CN's grossly intact, no focal deficits PSYCH: oriented to person, oriented to place Nephrology Results - Labs Result Diagrams: 07/10/20 03:24 07/10/20 03:24 Lab results: WBC 4.2 thou/uL (4.8-10.8) L 07/10/20 03:24 Hgb 11.5 g/dL (12.0-16.0) L 07/10/20 03:24 Hct 33.5 % (36.0-47.0) L 07/10/20 03:24 MCV 94.3 fL (78.0-98.0) 07/10/20 03:24 Plt Count 130 thou/uL (130-400) 07/10/20 03:24 Neutrophils % 49.4 % (42.0-75.0) 07/10/20 03:24 Sodium 138 mmol/L (136-145) 07/10/20 03:24 Potassium 3.6 mmol/L (3.5-5.1) 07/10/20 03:24 Chloride 102 mmol/L (98-107) 07/10/20 03:24 Carbon Dioxide 23 mmol/L (23-31) 07/10/20 03:24 BUN 30 mg/dL (9.8-20.1) H 07/10/20 03:24 Creatinine 2.84 mg/dL (0.6-1.1) H 07/10/20 03:24 Glucose 148 mg/dL (83-110) H 07/10/20 03:24 Lactic Acid 1.5 mmol/L (0.5-2.2) 07/09/20 22:11 Calcium 8.5 mg/dL (7.8-10.44) 07/10/20 03:24 Total Bilirubin 0.7 mg/dL (0.2-1.2) 07/09/20 17:35 AST 27 U/L (5-34) 07/09/20 17:35 ALT 13 U/L (8-55) 07/09/20 17:35 Alkaline Phosphatase 135 U/L (40-110) H 07/09/20 17:35 Ammonia 102 umol/L (18-72) H 07/10/20 03:23 Serum Total Protein 7.7 g/dL (6.0-8.3) 07/09/20 17:35 Albumin 3.5 g/dL (3.4-4.8) 07/09/20 17:35 Urine Ketones Negative mg/dL (Negative) 07/09/20 19:30 Urine Blood 3+ (Negative) A 07/09/20 19:30 Urine Nitrite Negative (Negative) 07/09/20 19:30 Ur Leukocyte Esterase 500 Reagan/uL (Negative) A 07/09/20 19:30 Urine RBC Greater than 50 HPF (0-3) A 07/09/20 19:30 Urine WBC Greater than 50 HPF (0-3) A 07/09/20 19:30 Ur Squamous Epith Cells 4-6 HPF (0-3) A 07/09/20 19:30 Urine Bacteria 4+ HPF (None Seen) A 07/09/20 19:30 Sodium 138 mmol/L (136-145) 07/10/20 03:24 Potassium 3.6 mmol/L (3.5-5.1) 07/10/20 03:24 Chloride 102 mmol/L (98-107) 07/10/20 03:24 Carbon Dioxide 23 mmol/L (23-31) 07/10/20 03:24 Anion Gap 17 mmol/L (10-20) 07/10/20 03:24 BUN 30 mg/dL (9.8-20.1) H 07/10/20 03:24 Creatinine 2.84 mg/dL (0.6-1.1) H 07/10/20 03:24 Glucose 148 mg/dL (83-110) H 07/10/20 03:24 Calcium 8.5 mg/dL (7.8-10.44) 07/10/20 03:24 Albumin 3.5 g/dL (3.4-4.8) 07/09/20 17:35 Nephrology AP PN - Plan Acute hepatic encephalopathy. ESRD on HD MWF. Lasr HD was on 07/09/20. Anemia in CKD Psoriasis ESLD. HTN Plan Continue lactulose and other supportive care. Monitor BP close and restart antihypertensives of BP is consistently elevated. Volume status and electrolytes are acceptable. Will plan on dialysing patient tomorrow if she is still here
[2020-07-10] MEDS: PARoxetine 20 MG TAB PO SCH (10:20)
[2020-07-10] MEDS: HumaLOG 300 UNITS/3 ML VIAL SC PRN ×2 (11:16→17:35)
--- NOTE | 2020-07-10 12:58 | PDOC.HOSPP ---
- Subjective Encounter Date: 07/10/20 Encounter Time: 09:20 Subjective: Patient seen and examined bedside today, no overnight event, patient is slightly confused, - Objective Vital Signs & Weight: Vital Signs (12 hours) Temp Pulse Resp BP Pulse Ox 07/10/20 11:42 97.9 F 69 18 105/48 L 99 07/10/20 08:32 98.0 F 76 18 142/63 H 99 07/10/20 03:00 98.1 F 78 16 174/69 H 100 Weight Weight 140 lb 4.8 oz Result Diagrams: 07/10/20 03:24 07/10/20 03:24 Additional Labs: Accuchecks 07/10/20 07/10/20 10:54 04:34 POC Glucose 223 H 137 H Hospitalist ROS - Review of Systems ENT: denies: ear pain, ear discharge, nose pain, nose discharge, nose congestion, mouth pain, mouth swelling, throat pain, throat swelling, other Respiratory: denies: cough, dry, shortness of breath, hemoptysis, SOB with excertion, pleuritic pain, sputum, wheezing, other Cardiovascular: denies: chest pain, palpitations, orthopnea, paroxysmal noc. dyspnea, edema, light headedness, other Gastrointestinal: denies: nausea, vomiting, abdominal pain, diarrhea, constipation, melena, hematochezia, other Genitourinary: denies: dysuria, frequency, incontinence, hematuria, retention, other Musculoskeletal: denies: neck pain, shoulder pain, arm pain, back pain, hand pain, leg pain, foot pain, other - Medication Medications: Active Medications Generic Name Dose Route Start Last Admin Trade Name Jomar PRN Reason Stop Dose Admin Aspirin 81 mg 07/10/20 09:00 07/10/20 08:27 Aspirin 81 Mg Enteric Coated Tablet PO 81 mg DAILY CHAPARRO Administration Carvedilol 6.25 mg 07/10/20 09:00 07/10/20 08:27 Carvedilol 6.25 Mg Tab PO 6.25 mg BID CHAPARRO Administration Ferrous Sulfate 325 mg 07/10/20 08:00 07/10/20 08:27 Ferrous Sulfate 325 Mg Tab PO 325 mg QAM-WM CHAPARRO Administration Insulin Glargine 10 units/ 0.1 mls @ 0 mls/hr 07/10/20 09:00 07/10/20 08:28 Miscellaneous Medication SC 0.1 mls QAM CHAPARRO Administration Insulin Human Lispro 0 units 07/09/20 21:46 07/10/20 11:16 Humalog 300 Units/3 Ml Vial SC 4 unit .MODERATE SLIDING SC PRN Administration Moderate Correctional Scale Lactulose 20 gm 07/10/20 09:00 07/10/20 09:00 Lactulose 20 Gm/30 Ml Udcup PO Not Given QID CHAPARRO Paroxetine HCl 10 mg 07/10/20 09:00 07/10/20 10:20 Paroxetine 20 Mg Tab PO 10 mg DAILY CHAPARRO Administration Rifaximin 550 mg 07/10/20 09:00 07/10/20 08:28 Rifaximin 550 Mg Tab PO 550 mg BID CHAPARRO Administration Sevelamer Carbonate 1,600 mg 07/10/20 08:00 07/10/20 11:16 Sevelamer Carbonate 800 Mg Tab PO 1,600 mg TID-WM CHAPARRO Administration - Exam General Appearance: NAD, awake alert Eye: PERRL, anicteric sclera ENT: normocephalic atraumatic, no oropharyngeal lesions Neck: supple, symmetric, no JVD, no thyromegaly Heart: RRR, no gallops, no rubs Heart - other findings: Soft systolic murmur noted at aortic area Respiratory: no wheezes, no rales, no ronchi Gastrointestinal: soft, non-tender, non-distended, normal bowel sounds Extremities: no clubbing, no edema Skin: normal turgor, no lesions Neurological: no focal deficits Neurological - other findings: Asterixis noted Musculoskeletal: normal tone, normal strength Psychiatric: normal affect, normal behavior, not oriented Hosp A/P (1) Hepatic encephalopathy Code(s): K72.90 - HEPATIC FAILURE, UNSPECIFIED WITHOUT COMA Status: Acute (2) UTI (urinary tract infection) Status: Suspected Qualifiers: Urinary tract infection type: acute cystitis Hematuria presence: without hematuria Qualified Code(s): N30.00 - Acute cystitis without hematuria (3) CAD (coronary artery disease) Code(s): I25.10 - ATHSCL HEART DISEASE OF [place] CORONARY ARTERY W/O ANG PCTRS Status: Chronic Qualifiers: Coronary Disease-Associated Artery/Lesion type: [place] vs. transplanted heart: [place] (4) DM2 (diabetes mellitus, type 2) Status: Chronic Qualifiers: Diabetes mellitus rodent exterminator insulin use: with rodent exterminator use (5) Depression Code(s): F32.9 - MAJOR DEPRESSIVE DISORDER, SINGLE EPISODE, UNSPECIFIED St atus: Chronic Qualifiers: Depression Type: unspecified Qualified Code(s): F32.9 - Major depressive disorder, single episode, unspecified (6) End stage renal disease on dialysis Code(s): N18.6 - END STAGE RENAL DISEASE; Z99.2 - DEPENDENCE ON RENAL DIALYSIS Status: Chronic (7) Hypertension Code(s): I10 - ESSENTIAL (PRIMARY) HYPERTENSION Status: Chronic Qualifiers: Hypertension type: essential hypertension Qualified Code(s): I10 - Essential (primary) hypertension (8) Hypothyroidism Code(s): E03.9 - HYPOTHYROIDISM, UNSPECIFIED Status: Chronic Qualifiers: Hypothyroidism type: unspecified Qualified Code(s): E03.9 - Hypothyroidism, unspecified (9) Liver cirrhosis Code(s): K74.60 - UNSPECIFIED CIRRHOSIS OF LIVER Status: Chronic Qualifiers: Ascites presence: unspecified (10) Moderate aortic stenosis Code(s): I35.0 - NONRHEUMATIC AORTIC (VALVE) STENOSIS Status: Chronic (11) Physical deconditioning Code(s): R53.81 - OTHER MALAISE Status: Chronic - Plan old records reviewed/req, plan discussed w/ family, DVT proph w/SCDs Patient has abnormal urine analysis to suspect for UTI, patient is ESRD patient so she may have chronic colonization, I will consult infectious disease for evaluation, at this point will hold on antibiotic therapy, patient is also allergic to multiple antibiotic, currently main issue is patient's hepatic encephalopathy, she has significantly elevated ammonia level, will increase lactulose to 20 g p.o. 4 times daily, will repeat labs tomorrow and ammonia level, patient is due for her hemodialysis tomorrow, if patient remains stable tomorrow and more lucid and ammonia level gets better then will consider di scharging next 24 to 48 hours. Continue PT OT, plan of care discussed with the patient's family member, her home medication has been reconciled.
[2020-07-10 14:50] LABS: SARS-CoV-2 PCR by NAA Not Detected (NotDetected)
--- NOTE | 2020-07-10 17:57 | CON ---
DATE OF CONSULTATION: 07/10/2020 REASON FOR CONSULTATION: Evaluate clinical changes that led to admission including the possibility of UTI. HISTORY OF PRESENT ILLNESS: An 80-year-old whom we had seen in the past with a history of steatohepatitis with liver cirrhosis, coronary artery disease, type 2 diabetes, hepatorenal syndrome, and end-stage renal disease, on hemodialysis through an AV fistula. In 10/2019, she had group B strep bacteremia, which we felt was due to the lesions of psoriasis, although she did not have overt cellulitis. In November, she came in with fever without any localizing symptoms. The blood culture showed Kocuria, which is probably a contaminant. She remained afebrile in the hospital, and in our opinion, it was not clear that infection was the cause of her admission for the second time around. At this time, the noticed that she was kind of weak and not walking very well and brought her in for evaluation and she was admitted. Review of systems is totally negative and vital signs are normal except for some elevation of systolic blood pressure. Other findings show WBC 5.5, hemoglobin 13, platelets 146, creatinine 2.84, alkaline phosphatase 135, albumin 3.5, and globulin 4.2. Urinalysis with pyuria and she has had pyuria pretty much since 12/2017. Currently, Ms. Sung is feeling back to normal. She was able to ambulate with some assistance. No headaches. No sore throat, odynophagia, or dysphagia. No dental pain. No back pain. No shortness of breath or cough. No abdominal pain. Voiding without any symptoms of dysuria. No frequency. Does not have a lot of urine output as expected. No neurological symptoms. MEDICAL HISTORY: 1. Steatohepatitis with cirrhosis. 2. Hepatic encephalopathy. 3. End-stage renal disease secondary to hepatorenal syndrome. 4. Type 2 diabetes. 5. Hemodialysis through an AV fistula. 6. Psoriasis. 7. Coronary artery disease. 8. Hysterectomy. 9. Ankle fracture. 10. Group B strep bacteremia in 2019. SOCIAL HISTORY: Never smoker. . [place] in the area. ALLERGIES: CEFTRIAXONE AND NAPROXEN. FAMILY HISTORY: Type 2 diabetes. MEDICATION LIST: 1. Coreg. 2. Dextrose. 3. Feosol. 4. Apresoline. 5. Insulin. 6. Humalog. 7. Lactulose. 8. Renvela. 9. Paxil. 10. Rifaximin. PHYSICAL EXAMINATION: VITAL SIGNS: She has been afebrile through the hospital stay, BP 104/51, saturating 99% on room air. SKIN: A functional left upper extremity AV fistula, IV access in the right upper extremity. She does not have a Trevizo catheter. No lymphadenopathy. HEENT: Ocular movements conjugate. Oral cavity with still quite a few teeth in place. NECK: Supple. No jugular vein distention. LUNGS: Symmetric. Clear air entry. No crackles or wheezing. HEART: S1 and S2. Regular rate. No S3 or S4. ABDOMEN: Soft, not distended or tender. No ascites. No bladder distention. EXTREMITIES: No joint inflammatory activity. Moves extremities equally. LABORATORY DATA: White cell count now is 4.2, hemoglobin 11.5, and platelets 130 with 49% neutrophils. Creatinine 2.84, calcium 8.5. TSH 2.12. Toxicology was negative. SARS-CoV-2 not detected. IMAGING STUDIES: She did not have a chest x-ray done. She had a brain CT performed, which showed no acute intracranial abnormalities. ASSESSMENT: 1. Steatohepatitis with cirrhosis. 2. End-stage renal disease, probably due to hepatorenal syndrome, on hemodialysis. 3. Type 2 diabetes. 4. Prior episode of group B strep bacteremia. 5. Now gait imbalance and some confusional state, which was transient. This follow dialysis. DISCUSSION: The urinary abnormalities reflect pyocystitis in a patient with end-stage renal disease and low urine output. Those patients are unable to maintain the bladder urine clear due to low urine flow. They are less likely to be associated with clinical manifestations although sometimes it requires management, for example, with bladder irrigation, so I would not recommend treating it with systemic antimicrobial tx at this point. It is possible that the changes do not reflect any infectious syndrome, and may be related to other metabolic changes with weakness and delirium or confusional state. Job ID: [id number] MTDD
[2020-07-10] MEDS ORDERED: PARoxetine 20 MG TAB PO SCH (21:00)
[2020-07-11 04:21] LABS: #Basophils 0.1 thou/uL (0.0-0.2); #Eosinphils 0.3 thou/uL (0.0-0.7); #Lymphocytes 1.6 thou/uL (1.20-3.40); #Monocytes 0.6 thou/uL (0.11-0.59); #Neutrophils 3.1 thou/uL (1.40-6.50); %Lymphocytes 27.4 % (21.0-51.0); %Neutrophils 54.7 % (42.0-75.0); Hemoglobin 11.3 g/dL (12.0-16.0); Mean Corpuscular HGB CONC 33.9 g/dL (32.0-36.0); Mean Corpuscular Hemoglobin 32.3 pg (27.0-31.0); Mean Platelet Volume 6.6 fL (7.4-10.4); Platelet Count 143 thou/uL (130-400); RBC Distribution Width 13.2 % (11.5-14.5); Red Blood Cell (RBC) Count 3.49 mill/uL (4.20-5.40); White Blood Cell (WBC) Count 5.7 thou/uL (4.8-10.8)
[2020-07-11 05:02] LABS: INR-International Normal Ratio 1.2; Prothrombin Time 15.1 sec (12.0-14.7)
[2020-07-11 05:33] LABS: ALT (SGPT) 10 U/L (8-55); AST (SGOT) 22 U/L (5-34); Albumin 3.2 g/dL (3.4-4.8); Alkaline Phosphatase 103 U/L (40-110); Anion Gap 15 mmol/L (10-20); BUN (Urea Nitrogen) 42 mg/dL (9.8-20.1); Bilirubin, Total 0.7 mg/dL (0.2-1.2); Calc. Creatinine Clearance 11 mL/min (70-130); Calcium 8.6 mg/dL (7.8-10.44); Carbon Dioxide 25 mmol/L (23-31); Chloride 103 mmol/L (98-107); Globulin 3.5 g/dL (2.4-3.5); Glucose 106 mg/dL (83-110); Magnesium 2.5 mg/dL (1.6-2.6); Phosphorus 4.5 mg/dL (2.3-4.7); Potassium 4.1 mmol/L (3.5-5.1); Protein, Total 6.7 g/dL (6.0-8.3); Sodium 139 mmol/L (136-145)
[2020-07-11] MEDS: Ferrous Sulfate 325 MG TAB PO SCH (09:01)
[2020-07-11] MEDS: Aspirin 81 mg Enteric Coated Tablet PO SCH (09:01)
[2020-07-11] MEDS: Carvedilol 6.25 MG TAB PO SCH ×2 (09:02→21:11)
[2020-07-11] MEDS: PARoxetine 20 MG TAB PO SCH (09:02)
[2020-07-11] MEDS: Rifaximin 550 MG TAB PO SCH ×2 (09:02→21:11)
[2020-07-11] MEDS: Sevelamer Carbonate 800 MG TAB PO SCH ×3 (09:02→17:17)
[2020-07-11] MEDS: Insulin Glargine 10 UNITS in Pre-Filled Syringe 1 EACH SC SCH (09:08)
--- NOTE | 2020-07-11 13:38 | PDOC.NEPPN ---
- Subjective Encounter Date: 07/11/20 Subjective: Seen and examined. No new problem. Feeling back to baseline. - Objective Vital Signs & Weight: Vital Signs (12 hours) Temp Pulse Resp BP BP Pulse Ox 07/11/20 09:18 98.3 F 64 18 118/56 L 100 07/11/20 09:02 128/71 07/11/20 08:00 100 Weight Weight 140 lb 4.8 oz I&O: 07/10/20 07/11/20 07/12/20 06:59 06:59 06:59 Intake Total 1680 Balance 1680 Result Diagrams: 07/11/20 04:06 07/11/20 04:06 Additional Labs: Accuchecks 07/11/20 07/10/20 07/10/20 04:58 20:43 16:32 POC Glucose 105 H 178 H 177 H Nephrology ROS - Medication Medications: Active Medications Generic Name Dose Route Start Last Admin Trade Name Freq PRN Reason Stop Dose Admin Aspirin 81 mg 07/10/20 09:00 07/11/20 09:01 Aspirin 81 Mg Enteric Coated Tablet PO 81 mg DAILY CHAPARRO Administration Carvedilol 6.25 mg 07/10/20 09:00 07/11/20 09:02 Carvedilol 6.25 Mg Tab PO 6.25 mg BID CHAPARRO Administration Ferrous Sulfate 325 mg 07/10/20 08:00 07/11/20 09:01 Ferrous Sulfate 325 Mg Tab PO 325 mg QAM-WM CHAPARRO Administration Insulin Glargine 10 units/ 0.1 mls @ 0 mls/hr 07/10/20 09:00 07/11/20 09:08 Miscellaneous Medication SC 0.1 mls QAM CHAPARRO Administration Insulin Human Lispro 0 units 07/09/20 21:46 07/10/20 17:35 Humalog 300 Units/3 Ml Vial SC 2 unit .MODERATE SLIDING SC PRN Administration Moderate Correctional Scale Lactulose 20 gm 07/10/20 09:00 07/11/20 09:03 Lactulose 20 Gm/30 Ml Udcup PO 20 gm QID CHAPARRO Administration Paroxetine HCl 10 mg 07/10/20 09:00 07/11/20 09:02 Paroxetine 20 Mg Tab PO 10 mg DAILY CHAPARRO Administration Rifaximin 550 mg 07/10/20 09:00 07/11/20 09:02 Rifaximin 550 Mg Tab PO 550 mg BID CHAPARRO Administration Sevelamer Carbonate 1,600 mg 07/10/20 08:00 07/11/20 09:02 Sevelamer Carbonate 800 Mg Tab PO 1,600 mg TID-WM CHAPARRO Administration - Exam General Appearance: awake alert ENT: normocephalic atraumatic, moist mucosa Neck: symmetric, no JVD Respiratory: no wheezes, no rales, no ronchi, normal chest expansion Cardiovascular: RRR, murmur present Gastrointestinal: soft, non-tender, non-distended, normal bowel sounds Extremities: no edema Neurological: CN's grossly intact, no focal deficits PSYCH: A&O x 3 Nephrology Results - Labs Result Diagrams: 07/11/20 04:06 07/11/20 04:06 Lab results: WBC 5.7 thou/uL (4.8-10.8) 07/11/20 04:06 Hgb 11.3 g/dL (12.0-16.0) L 07/11/20 04:06 Hct 33.2 % (36.0-47.0) L 07/11/20 04:06 MCV 95.0 fL (78.0-98.0) 07/11/20 04:06 Plt Count 143 thou/uL (130-400) 07/11/20 04:06 Neutrophils % 54.7 % (42.0-75.0) 07/11/20 04:06 Sodium 139 mmol/L (136-145) 07/11/20 04:06 Potassium 4.1 mmol/L (3.5-5.1) 07/11/20 04:06 Chloride 103 mmol/L (98-107) 07/11/20 04:06 Carbon Dioxide 25 mmol/L (23-31) 07/11/20 04:06 BUN 42 mg/dL (9.8-20.1) H 07/11/20 04:06 Creatinine 4.19 mg/dL (0.6-1.1) H 07/11/20 04:06 Glucose 106 mg/dL (83-110) 07/11/20 04:06 Lactic Acid 1.5 mmol/L (0.5-2.2) 07/09/20 22:11 Calcium 8.6 mg/dL (7.8-10.44) 07/11/20 04:06 Total Bilirubin 0.7 mg/dL (0.2-1.2) 07/11/20 04:06 AST 22 U/L (5-34) 07/11/20 04:06 ALT 10 U/L (8-55) 07/11/20 04:06 Alkaline Phosphatase 103 U/L (40-110) 07/11/20 04:06 Ammonia 84 umol/L (18-72) H 07/11/20 04:06 Serum Total Protein 6.7 g/dL (6.0-8.3) 07/11/20 04:06 Albumin 3.2 g/dL (3.4-4.8) L 07/11/20 04:06 Urine Ketones Negative mg/dL (Negative) 07/09/20 19:30 Urine Blood 3+ (Negative) A 07/09/20 19:30 Urine Nitrite Negative (Negative) 07/09/20 19:30 Ur Leukocyte Esterase 500 Reagan/uL (Negative) A 07/09/20 19:30 Urine RBC Greater than 50 HPF (0-3) A 07/09/20 19:30 Urine WBC Greater than 50 HPF (0-3) A 07/09/20 19:30 Ur Squamous Epith Cells 4-6 HPF (0-3) A 07/09/20 19:30 Urine Bacteria 4+ HPF (None Seen) A 07/09/20 19:30 Sodium 139 mmol/L (136-145) 07/11/20 04:06 Potassium 4.1 mmol/L (3.5-5.1) 07/11/20 04:06 Chloride 103 mmol/L (98-107) 07/11/20 04:06 Carbon Dioxide 25 mmol/L (23-31) 07/11/20 04:06 Anion Gap 15 mmol/L (10-20) 07/11/20 04:06 BUN 42 mg/dL (9.8-20.1) H 07/11/20 04:06 Creatinine 4.19 mg/dL (0.6-1.1) H 07/11/20 04:06 Glucose 106 mg/dL (83-110) 07/11/20 04:06 Calcium 8.6 mg/dL (7.8-10.44) 07/11/20 04:06 Phosphorus 4.5 mg/dL (2.3-4.7) 07/11/20 04:06 Magnesium 2.5 mg/dL (1.6-2.6) 07/11/20 04:06 Albumin 3.2 g/dL (3.4-4.8) L 07/11/20 04:06 Nephrology AP PN - Plan Acute hepatic encephalopathy. ESRD on HD MWF. Lasr HD was on 07/09/20. Anemia in CKD Psoriasis ESLD. HTN Plan Will dialyze patient today in line with outpatient schedule. Continue lactulose and other supportive care. Can be discharged from nephrology point of view after HD today. See EMR for HD order.
--- NOTE | 2020-07-11 18:08 | PDOC.HOSPP ---
- Subjective Encounter Date: 07/11/20 Encounter Time: 18:04 Subjective: Patient seen for follow-up regarding hepatic encephalopathy. She denies chest pain or shortness of breath. - Objective Vital Signs & Weight: Vital Signs (12 hours) Temp Pulse Resp BP BP Pulse Ox 07/11/20 09:18 98.3 F 64 18 118/56 L 100 07/11/20 09:02 128/71 07/11/20 08:00 100 Weight Weight 140 lb 4.8 oz I&O: 07/10/20 07/11/20 07/12/20 06:59 06:59 06:59 Intake Total 1680 Balance 1680 Result Diagrams: 07/11/20 04:06 07/11/20 04:06 Additional Labs: Accuchecks 07/11/20 07/11/20 07/10/20 16:08 04:58 20:43 POC Glucose 167 H 105 H 178 H Labs and MAR reviewed by [place] Hospitalist ROS - Review of Systems Cardiovascular: denies: chest pain, palpitations, orthopnea, paroxysmal noc. dyspnea, edema, light headedness Gastrointestinal: denies: nausea, vomiting, abdominal pain, diarrhea, constipation, melena, hematochezia - Medication Medications: Active Medications Generic Name Dose Route Start Last Admin Trade Name Freq PRN Reason Stop Dose Admin Aspirin 81 mg 07/10/20 09:00 07/11/20 09:01 Aspirin 81 Mg Enteric Coated Tablet PO 81 mg DAILY CHAPARRO Administration Carvedilol 6.25 mg 07/10/20 09:00 07/11/20 09:02 Carvedilol 6.25 Mg Tab PO 6.25 mg BID CHAPARRO Administration Ferrous Sulfate 325 mg 07/10/20 08:00 07/11/20 09:01 Ferrous Sulfate 325 Mg Tab PO 325 mg QAM-WM CHAPARRO Administration Insulin Glargine 10 units/ 0.1 mls @ 0 mls/hr 07/10/20 09:00 07/11/20 09:08 Miscellaneous Medication SC 0.1 mls QAM CHAPARRO Administration Insulin Human Lispro 0 units 07/09/20 21:46 07/10/20 17:35 Humalog 300 Units/3 Ml Vial SC 2 unit .MODERATE SLIDING SC PRN Administration Moderate Correctional Scale Lactulose 20 gm 07/10/20 09:00 07/11/20 16:47 Lactulose 20 Gm/30 Ml Udcup PO Not Given QID CHAPARRO Paroxetine HCl 10 mg 07/10/20 09:00 07/11/20 09:02 Paroxetine 20 Mg Tab PO 10 mg DAILY CHAPARRO Administration Rifaximin 550 mg 07/10/20 09:00 07/11/20 09:02 Rifaximin 550 Mg Tab PO 550 mg BID CHAPARRO Administration Sevelamer Carbonate 1,600 mg 07/10/20 08:00 07/11/20 17:17 Sevelamer Carbonate 800 Mg Tab PO Not Given TID-WM CHAPARRO - Exam General Appearance: awake alert Eye: anicteric sclera ENT: no oropharyngeal lesions Neck: supple Heart: RRR Respiratory: CTAB Gastrointestinal: soft, non-tender Extremities: no clubbing Skin: no rashes Neurological: cranial nerve grossly intact Psychiatric: normal affect, normal behavior Hosp A/P - Plan Hosp A/P (1) Hepatic encephalopathy Code(s): K72.90 - HEPATIC FAILURE, UNSPECIFIED WITHOUT COMA Status: Acute (2) UTI (urinary tract infection) Status: Suspected Qualifiers: Urinary tract infection type: acute cystitis Hematuria presence: without hematuria Qualified Code(s): N30.00 - Acute cystitis without hematuria (3) CAD (coronary artery disease) Code(s): I25.10 - ATHSCL HEART DISEASE OF [place] CORONARY ARTERY W/O ANG PCTRS Status: Chronic Qualifiers: Coronary Disease-Associated Artery/Lesion type: [place] artery [place] vs. transplanted heart: [place] heart (4) DM2 (diabetes mellitus, type 2) Status: Chronic Qualifiers: Diabetes mellitus custodial insulin use: with custodial use (5) Depression Code(s): F32.9 - MAJOR DEPRESSIVE DISORDER, SINGLE EPISODE, UNSPECIFIED Status: Chronic Qualifiers: Depression Type: unspecified Qualified Code(s): F32.9 - Major depressive disorder, single episode, unspecified (6) End stage renal disease on dialysis Code(s): N18.6 - END STAGE RENAL DISEASE; Z99.2 - DEPENDENCE ON RENAL DIALYSIS Status: Chronic (7) Hypertension Code(s): I10 - ESSENTIAL (PRIMARY) HYPERTENSION Status: Chronic Qualifiers: Hypertension type: essential hypertension Qualified Code(s): I10 - Essential (primary) hypertension (8) Hypothyroidism Code(s): E03.9 - HYPOTHYROIDISM, UNSPECIFIED Status: Chronic Qualifiers: Hypothyroidism type: unspecified Qualified Code(s): E03.9 - Hypothyroidism, unspecified (9) Liver cirrhosis Code(s): K74.60 - UNSPECIFIED CIRRHOSIS OF LIVER Status: Chronic Qualifiers: Ascites presence: unspecified (10) Moderate aortic stenosis Code(s): I35.0 - NONRHEUMATIC AORTIC (VALVE) STENOSIS Status: Chronic (11) Physical deconditioning Code(s): R53.81 - OTHER MALAISE Status: Chronic - Plan Patient is slowly improving. Continue rifaximin. Increase lactulose to 30 g 4 times daily, titrate to 2-3 soft stools per day. Dialysis per nephrology service. Antibiotics discontinued, likely colonization.
[2020-07-12] MEDS: Sevelamer Carbonate 800 MG TAB PO SCH ×3 (09:57→18:18)
[2020-07-12] MEDS: Carvedilol 6.25 MG TAB PO SCH ×2 (09:58→22:36)
[2020-07-12] MEDS: Aspirin 81 mg Enteric Coated Tablet PO SCH (09:58)
[2020-07-12] MEDS: PARoxetine 20 MG TAB PO SCH (09:58)
[2020-07-12] MEDS: Rifaximin 550 MG TAB PO SCH ×2 (09:58→22:37)
[2020-07-12] MEDS: Ferrous Sulfate 325 MG TAB PO SCH (09:58)
[2020-07-12] MEDS: Insulin Glargine 10 UNITS in Pre-Filled Syringe 1 EACH SC SCH (10:04)
--- NOTE | 2020-07-12 14:40 | PDOC.HOSPP ---
- Subjective Encounter Date: 07/12/20 Encounter Time: 09:00 Subjective: Patient seen for follow-up regarding hepatic encephalopathy. More alert today. - Objective Vital Signs & Weight: Vital Signs (12 hours) Temp Pulse Resp BP Pulse Ox 07/12/20 08:57 97.9 F 63 18 122/76 99 07/12/20 08:00 99 07/12/20 06:16 97.9 F 60 18 115/49 L 98 Weight Weight 140 lb 4.8 oz I&O: 07/11/20 07/12/20 07/13/20 06:59 06:59 06:59 Intake Total 1680 400 Balance 1680 400 Result Diagrams: 07/11/20 04:06 07/11/20 04:06 Additional Labs: Accuchecks 07/12/20 07/11/20 07/11/20 05:03 21:01 16:08 POC Glucose 90 197 H 167 H I reviewed patient's labs and MAR Hospitalist ROS - Review of Systems Cardiovascular: denies: chest pain, palpitations, orthopnea, paroxysmal noc. dyspnea, edema, light headedness Gastrointestinal: denies: nausea, vomiting, abdominal pain, diarrhea, constipa tion, melena, hematochezia - Medication Medications: Active Medications Generic Name Dose Route Start Last Admin Trade Name Freq PRN Reason Stop Dose Admin Aspirin 81 mg 07/10/20 09:00 07/12/20 09:58 Aspirin 81 Mg Enteric Coated Tablet PO 81 mg DAILY CHAPARRO Administration Carvedilol 6.25 mg 07/10/20 09:00 07/12/20 09:58 Carvedilol 6.25 Mg Tab PO 6.25 mg BID CHAPARRO Administration Ferrous Sulfate 325 mg 07/10/20 08:00 07/12/20 09:58 Ferrous Sulfate 325 Mg Tab PO 325 mg QAM-WM CHAPARRO Administration Insulin Glargine 10 units/ 0.1 mls @ 0 mls/hr 07/10/20 09:00 07/12/20 10:04 Miscellaneous Medication SC 0.1 mls QAM CHAPARRO Administration Insulin Human Lispro 0 units 07/09/20 21:46 07/10/20 17:35 Humalog 300 Units/3 Ml Vial SC 2 unit .MODERATE SLIDING SC PRN Administration Moderate Correctional Scale Lactulose 30 gm 07/11/20 21:00 07/12/20 13:00 Lactulose 20 Gm/30 Ml Udcup PO 30 gm QID CHAPARRO Administration Paroxetine HCl 10 mg 07/10/20 09:00 07/12/20 09:58 Paroxetine 20 Mg Tab PO 10 mg DAILY CHAPARRO Administration Rifaximin 550 mg 07/10/20 09:00 07/12/20 09:58 Rifaximin 550 Mg Tab PO 550 mg BID CHAPARRO Administration Sevelamer Carbonate 1,600 mg 07/10/20 08:00 07/12/20 12:58 Sevelamer Carbonate 800 Mg Tab PO 1,600 mg TID-WM CHAPARRO Administration - Exam General Appearance: awake alert ENT: moist mucosa Neck: supple Heart: RRR Respiratory: CTAB Gastrointestinal: soft, non-tender Skin: no rashes Psychiatric: normal affect, normal behavior, oriented to person, oriented to place Hosp A/P - Plan Hosp A/P (1) Hepatic encephalopathy Code(s): K72.90 - HEPATIC FAILURE, UNSPECIFIED WITHOUT COMA Status: Acute (2) UTI (urinary tract infection) Status: Suspected Qualifiers: Urinary tract infection type: acute cystitis Hematuria presence: without hematuria Qualified Code(s): N30.00 - Acute cystitis without hematuria (3) CAD (coronary artery disease) Code(s): I25.10 - ATHSCL HEART DISEASE OF [place] CORONARY ARTERY W/O ANG PCTRS Status: Chronic Qualifiers: Coronary Disease-Associated Artery/Lesion type: [place] artery [place] vs. transplanted heart: [place] heart (4) DM2 (diabetes mellitus, type 2) Status: Chronic Qualifiers: Diabetes mellitus roasterman insulin use: with nursing home use (5) Depression Code(s): F32.9 - MAJOR DEPRESSIVE DISORDER, SINGLE EPISODE, UNSPECIFIED Status: Chronic Qualifiers: Depression Type: unspecified Qualified Code(s): F32.9 - Major depressive disorder, single episode, unspecified (6) End stage renal disease on dialysis Code(s): N18.6 - END STAGE RENAL DISEASE; Z99.2 - DEPENDENCE ON RENAL DIALYSIS Status: Chronic (7) Hypertension Code(s): I10 - ESSENTIAL (PRIMARY) HYPERTENSION Status: Chronic Qualifiers: Hypertension type: essential hypertension Qualified Code(s): I10 - Essential (primary) hypertension (8) Hypothyroidism Code(s): E03.9 - HYPOTHYROIDISM, UNSPECIFIED Status: Chronic Qualifiers: Hypothyroidism type: unspecified Qualified Code(s): E03.9 - Hypothyroidism, unspecified (9) Liver cirrhosis Code(s): K74.60 - UNSPECIFIED CIRRHOSIS OF LIVER Status: Chronic Qualifiers: Ascites presence: unspecified (10) Moderate aortic stenosis Code(s): I35.0 - NONRHEUMATIC AORTIC (VALVE) STENOSIS Status: Chronic (11) Physical deconditioning Code(s): R53.81 - OTHER MALAISE Status: Chronic - Plan Continue rifaximin. Continue lactulose 30 g 4 times daily, titrate to 2-3 soft stools per day. Nephrology service following for hemodialysis Antibiotics discontinued, likely colonization of urinary tract. Patient is slowly improving.
--- NOTE | 2020-07-12 18:47 | PRG ---
DATE OF SERVICE: 07/12/2020 SUBJECTIVE: Ms. Sung is a little bit more responsive. Denies any headaches. No shortness of breath or abdominal pain. No diarrhea. OBJECTIVE: VITAL SIGNS: Temperature is normal. BP 120/76, heart rate is 63, O2 saturation 99. LUNGS: Clear. HEART: S1 and S2, regular rate. ABDOMEN: Soft, not distended. Bladder is not distended. EXTREMITIES: Moves extremities equally. LABORATORY DATA: White cell count 5.7, hemoglobin 11.3, platelets 143. Creatinine, sodium 139. Liver profile normal. Albumin 3.2. ASSESSMENT AND DISCUSSION: Steatohepatitis with cirrhosis; end-stage renal disease, possibly due to hepatorenal syndrome, on hemodialysis; type 2 diabetes; prior episode of group B Strep bacteremia; and now gait imbalance and some confusional state with the urinary changes, probably not related to this clinical scenario and I still would not recommend antimicrobial therapy at this point in time. Job ID: [id number] MTDD
[2020-07-13 05:52] LABS: #Eosinphils 0.3 thou/uL (0.0-0.7); #Lymphocytes 1.8 thou/uL (1.20-3.40); #Monocytes 0.6 thou/uL (0.11-0.59); #Neutrophils 2.9 thou/uL (1.40-6.50); %Basophils 0.6 % (0.0-1.0); %Lymphocytes 31.5 % (21.0-51.0); %Monocytes 10.8 % (0.0-10.0); %Neutrophils 51.1 % (42.0-75.0); Hemoglobin 10.3 g/dL (12.0-16.0); Mean Corpuscular HGB CONC 33.4 g/dL (32.0-36.0); Mean Corpuscular Hemoglobin 31.8 pg (27.0-31.0); Mean Corpuscular Volume 95.1 fL (78.0-98.0); Mean Platelet Volume 6.8 fL (7.4-10.4); Platelet Count 125 thou/uL (130-400); RBC Distribution Width 12.9 % (11.5-14.5); Red Blood Cell (RBC) Count 3.25 mill/uL (4.20-5.40); White Blood Cell (WBC) Count 5.7 thou/uL (4.8-10.8)
[2020-07-13 06:21] LABS: Anion Gap 15 mmol/L (10-20); BUN (Urea Nitrogen) 39 mg/dL (9.8-20.1); Calc. Creatinine Clearance 10 mL/min (70-130); Carbon Dioxide 26 mmol/L (23-31); Chloride 96 mmol/L (98-107); Potassium 4.1 mmol/L (3.5-5.1); Sodium 133 mmol/L (136-145)
[2020-07-13 06:22] LABS: Calcium 7.8 mg/dL (7.8-10.44); Glucose 128 mg/dL (83-110)
--- NOTE | 2020-07-13 10:24 | PDOC.NEPPN ---
- Subjective Encounter Date: 07/13/20 Subjective: Seen and examined. No new problem. Comfortable and oriented - Objective Vital Signs & Weight: Vital Signs (12 hours) Temp Pulse Resp BP BP Pulse Ox 07/13/20 08:00 98.0 F 67 16 128/55 L 96 07/13/20 07:38 96 07/13/20 06:00 97.5 F L 66 16 117/55 L 96 07/13/20 00:00 97.9 F 61 16 108/48 L 98 07/12/20 22:36 130/57 L Weight Weight 140 lb 4.8 oz I&O: 07/12/20 07/13/20 07/14/20 06:59 06:59 06:59 Intake Total 700 Balance 700 Result Diagrams: 07/13/20 05:38 07/13/20 05:38 Additional Labs: Accuchecks 07/13/20 07/12/20 07/12/20 04:44 20:56 16:56 POC Glucose 61 L 155 H 82 07/12/20 11:47 POC Glucose 216 H Nephrology ROS - Medication Medications: Active Medications Generic Name Dose Route Start Last Admin Trade Name Freq PRN Reason Stop Dose Admin Aspirin 81 mg 07/10/20 09:00 07/12/20 09:58 Aspirin 81 Mg Enteric Coated Tablet PO 81 mg DAILY CHAPARRO Administration Carvedilol 6.25 mg 07/10/20 09:00 07/12/20 22:36 Carvedilol 6.25 Mg Tab PO 6.25 mg BID CHAPARRO Administration Ferrous Sulfate 325 mg 07/10/20 08:00 07/12/20 09:58 Ferrous Sulfate 325 Mg Tab PO 325 mg QAM-WM CHAPARRO Administration Insulin Glargine 10 units/ 0.1 mls @ 0 mls/hr 07/10/20 09:00 07/12/20 10:04 Miscellaneous Medication SC 0.1 mls QAM CHAPARRO Administration Insulin Human Lispro 0 units 07/09/20 21:46 07/10/20 17:35 Humalog 300 Units/3 Ml Vial SC 2 unit .MODERATE SLIDING SC PRN Administration Moderate Correctional Scale Lactulose 30 gm 07/11/20 21:00 07/12/20 22:37 Lactulose 20 Gm/30 Ml Udcup PO Not Given QID CHAPARRO Paroxetine HCl 10 mg 07/10/20 09:00 07/12/20 09:58 Paroxetine 20 Mg Tab PO 10 mg DAILY CHAPARRO Administration Rifaximin 550 mg 07/10/20 09:00 07/12/20 22:37 Rifaximin 550 Mg Tab PO 550 mg BID CHAPARRO Administration Sevelamer Carbonate 1,600 mg 07/10/20 08:00 07/12/20 18:18 Sevelamer Carbonate 800 Mg Tab PO 1,600 mg TID-WM CHAPARRO Administration - Exam General Appearance: awake alert ENT: normocephalic atraumatic, moist mucosa Neck: symmetric Respiratory: no wheezes, no rales, no ronchi, normal chest expansion Cardiovascular: RRR, murmur present Gastrointestinal: soft, non-tender, non-distended Extremities: no edema Neurological: CN's grossly intact, no focal deficits PSYCH: A&O x 3 Nephrology Results - Labs Result Diagrams: 07/13/20 05:38 07/13/20 05:38 Lab results: WBC 5.7 thou/uL (4.8-10.8) 07/13/20 05:38 Hgb 10.3 g/dL (12.0-16.0) L 07/13/20 05:38 Hct 30.9 % (36.0-47.0) L 07/13/20 05:38 MCV 95.1 fL (78.0-98.0) 07/13/20 05:38 Plt Count 125 thou/uL (130-400) L 07/13/20 05:38 Neutrophils % 51.1 % (42.0-75.0) 07/13/20 05:38 Sodium 133 mmol/L (136-145) L 07/13/20 05:38 Potassium 4.1 mmol/L (3.5-5.1) 07/13/20 05:38 Chloride 96 mmol/L (98-107) L 07/13/20 05:38 Carbon Dioxide 26 mmol/L (23-31) 07/13/20 05:38 BUN 39 mg/dL (9.8-20.1) H 07/13/20 05:38 Creatinine 4.59 mg/dL (0.6-1.1) H 07/13/20 05:38 Glucose 128 mg/dL (83-110) H 07/13/20 05:38 Lactic Acid 1.5 mmol/L (0.5-2.2) 07/09/20 22:11 Calcium 7.8 mg/dL (7.8-10.44) 07/13/20 05:38 Total Bilirubin 0.7 mg/dL (0.2-1.2) 07/11/20 04:06 AST 22 U/L (5-34) 07/11/20 04:06 ALT 10 U/L (8-55) 07/11/20 04:06 Alkaline Phosphatase 103 U/L (40-110) 07/11/20 04:06 Ammonia 66 umol/L (18-72) 07/13/20 05:38 Serum Total Protein 6.7 g/dL (6.0-8.3) 07/11/20 04:06 Albumin 3.2 g/dL (3.4-4.8) L 07/11/20 04:06 Urine Ketones Negative mg/dL (Negative) 07/09/20 19:30 Urine Blood 3+ (Negative) A 07/09/20 19:30 Urine Nitrite Negative (Negative) 07/09/20 19:30 Ur Leukocyte Esterase 500 Reagan/uL (Negative) A 07/09/20 19:30 Urine RBC Greater than 50 HPF (0-3) A 07/09/20 19:30 Urine WBC Greater than 50 HPF (0-3) A 07/09/20 19:30 Ur Squamous Epith Cells 4-6 HPF (0-3) A 07/09/20 19:30 Urine Bacteria 4+ HPF (None Seen) A 07/09/20 19:30 Sodium 133 mmol/L (136-145) L 07/13/20 05:38 Potassium 4.1 mmol/L (3.5-5.1) 07/13/20 05:38 Chloride 96 mmol/L (98-107) L 07/13/20 05:38 Carbon Dioxide 26 mmol/L (23-31) 07/13/20 05:38 Anion Gap 15 mmol/L (10-20) 07/13/20 05:38 BUN 39 mg/dL (9.8-20.1) H 07/13/20 05:38 Creatinine 4.59 mg/dL (0.6-1.1) H 07/13/20 05:38 Glucose 128 mg/dL (83-110) H 07/13/20 05:38 Calcium 7.8 mg/dL (7.8-10.44) 07/13/20 05:38 Phosphorus 4.5 mg/dL (2.3-4.7) 07/11/20 04:06 Magnesium 2.5 mg/dL (1.6-2.6) 07/11/20 04:06 Albumin 3.2 g/dL (3.4-4.8) L 07/11/20 04:06 Nephrology AP PN - Plan Acute hepatic encephalopathy. ESRD on HD MWF. Lasr HD was on 07/11/20. Anemia in CKD Psoriasis ESLD. HTN Plan Will dialyze patient today in line with outpatient schedule. See EMR for order. MIKAELA as needed Continue lactulose and other supportive care. See EMR for HD order.
[2020-07-13] MEDS: Sevelamer Carbonate 800 MG TAB PO SCH ×2 (14:50→15:06)
[2020-07-13 14:55] VITALS: BP 133/61; TEMP 98.6
--- NOTE | 2020-07-13 15:02 | PDOC.DS.DS ---
Provider - Provider Date of Admission: 07/10/20 08:37 Date of Discharge: 07/13/20 Admitting Provider: Lance Nichols MD Consultations: Infectious Disease (Dr. Isabel), Nephrology (Dr. Russo) Primary Care Physician: Pedro Amezcua MD Course - Hospital Course Hospital Course: Discharge diagnosis: 1. Acute metabolic encephalopathy 2. Hepatic encephalopathy 3. COVID-19 PCR test negative 4. Hyponatremia 5. Hypokalemia Hospital course: Patient is a pleasant 80-year-old lady who was admitted to the hospital on July 09, 2020 for acute metabolic encephalopathy. Initially it was suspected that she had a urinary tract infection. Urine culture grew Klebsiella pneumonia that was resistant to fluoroquinolones, gentamicin, nitrofurantoin and Bactrim, intermediate sensitivity to tobramycin and sensitive to amikacin, a mpicillin/sulbactam, cefepime, cefoxitin, ceftazidime, ceftriaxone, meropenem and Zosyn. Infectious disease service was consulted and it was felt that this was not a true infection. Antibiotics were discontinued. Her ammonia level was elevated at 123. Lactulose dose was increased, with normalization of ammonia level to 66 on the day of discharge. She was also seen by nephrology service for maintenance dialysis. Her mentation improved, she is being discharged home in stable condition. Many thanks for allowing me to participate in your patient's care. Please feel free to contact me with any questions or concerns. Discharge destination: Home with home health Total amount of time spent coordinating this discharge: 32 minutes Resuscitation Status: 07/09/20 22:17 Resuscitation Status Routine Co-Sign Provider: Resuscitation Status: FULL: Full Resuscitation Discussed with: patient Additional comments: Unsuccessful attempt to contact spouse - Labs Lab Results: 07/13/20 05:38 07/13/20 05:38 Abnormal Lab Results - Last 48 hrs 07/13/20 05:38: Sodium 133 L, Chloride 96 L, BUN 39 H, Creatinine 4.59 H 07/13/20 05:38: RBC 3.25 L, Hgb 10.3 L, Hct 30.9 L, MCH 31.8 H, Plt Count 125 L, MPV 6.8 L, Monocytes % 10.8 H, Monocytes # 0.6 H Microbiology - Entire Visit 07/09/20 22:11 Venous blood - Right Hand Blood Culture - Preliminary NO GROWTH AT 48 HOURS 07/09/20 22:11 Venous blood - Right Hand Blood Culture - Preliminary NO GROWTH AT 48 HOURS 07/09/20 19:30 Urine Straight Catheter Urine Culture - Final Klebsiella pneumoniae ssp pneu - Physical Exam Vitals: Vital Signs (12 hours) Temp Pulse Resp BP Pulse Ox 07/13/20 14:45 98.6 F 61 16 133/61 100 07/13/20 08:00 98.0 F 67 16 128/55 L 96 07/13/20 07:38 96 07/13/20 06:00 97.5 F L 66 16 117/55 L 96 Weight Weight 140 lb 4.8 oz Physical Exam: The patient was seen and examined on the day of discharge. Patient denies chest pain or shortness of breath. Vital signs are stable. S1 and S2 are heard. Lungs are clear to auscultation bilaterally. Plan - Discharge Medications Home Medications: Medication Instructions Recorded Confirmed Type Rifaximin [Xifaxan] 550 mg PO BID #60 tablet 07/21/18 07/10/20 Rx Carvedilol [Coreg] 6.25 mg PO BID #60 tab 09/26/18 07/10/20 Rx Ferrous Sulfate 325 mg PO DAILY 03/23/19 07/10/20 History hydrOXYzine [Atarax] 10 mg PO Q8H PRN 11/12/19 07/10/20 History Insulin Detemir [Levemir Flextouch] 10 unit SQ QAM 01/17/20 07/10/20 History Aspirin [Aspirin EC] 1 tab PO DAILY 05/14/20 07/10/20 History Levothyroxine Sodium [Synthroid] 75 mcg PO QAM 05/14/20 07/10/20 History PARoxetine HCl [Paroxetine HCl] 1 tab PO HS 05/14/20 07/10/20 History Hydrocortisone [Hydrocortisone 1 applic TOP BID 05/15/20 07/10/20 History 2.5% Ointment] Lactulose 30 gm PO TID #0 udcup 05/16/20 07/10/20 Rx Sevelamer Carbonate [Renvela] 1,600 mg PO TID-WM 06/13/20 07/10/20 History Allergies: naproxen sodium [From Aleve] Allergy (Mild, Verified 06/12/20 20:17) blisters CAUSES SHAKING PER PT ceftriaxone [From Rocephin] Allergy (Unknown, Verified 06/12/20 20:17) swelling acetaminophen [From Tylenol] Allergy (Verified 06/12/20 20:17) hydrocodone Allergy (Verified 06/12/20 20:17) +++ drowsy meropenem Adverse Reaction (Verified 06/12/20 20:17) Rash rash on various areas of her body - Follow up Plan Referrals: Pedro Amezcua MD [Primary Care Provider] - Cj Isabel MD [Active] - Bryson Russo MD [Active] - [place], [place] [Lab Providers] - Disposition: HOME Quality - Care Measures CORE MEASURES:: N/A
[2020-07-13] MEDS: Ferrous Sulfate 325 MG TAB PO SCH (15:05)
[2020-07-13] MEDS: PARoxetine 20 MG TAB PO SCH (15:06)
[2020-07-13] MEDS: Insulin Glargine 10 UNITS in Pre-Filled Syringe 1 EACH SC SCH (15:06)
[2020-07-13] MEDS: Aspirin 81 mg Enteric Coated Tablet PO SCH (15:06)
[2020-07-13] MEDS: Carvedilol 6.25 MG TAB PO SCH (15:06)
[2020-07-13] MEDS: Rifaximin 550 MG TAB PO SCH (15:07)
--- NOTE | 2020-08-01 13:12 | EKG ---
Test Reason : Blood Pressure : / mmHG Vent. Rate : 077 BPM Atrial Rate : 077 BPM P-R Int : 170 ms QRS Dur : 116 ms QT Int : 492 ms P-R-T Axes : 050 027 095 degrees QTc Int : 556 ms Normal sinus rhythm Inferior infarct , age undetermined Prolonged QT Abnormal ECG Confirmed by BRIAN LONG ([id number]), desk editor RAAD OLIVARES ([id number]) on 08/01/2020 1:11:54 PM Referred By: Confirmed By:BRIAN Erwin
== END 2020-07-13 15:43 | disposition home or self-care (01) | DRG 441 ==
LOC: ERS 17:14 → ERHOLD 21:28 → T4-A 07-10 00:04 → OBSVTOIN 07-10 08:37
PROVIDERS: ADMIT Student in an Organized Health Care Education/Training Program; ATTEND Internal Medicine
PROC: 5A1D70Z Performance of Urinary Filtration, Intermittent, Less than 6 Hours Per Day (ICD-10-PCS; principal; 2020-07-11)
DX: K72.00 Acute and subacute hepatic failure without coma (principal); G93.41 Metabolic encephalopathy; N18.6 End stage renal disease; K76.7 Hepatorenal syndrome; N39.0 Urinary tract infection, site not specified; I12.0 Hypertensive chronic kidney disease with stage 5 chronic kidney disease or end stage renal disease; E87.1 Hypo-osmolality and hyponatremia; Z20.822 Contact with and (suspected) exposure to COVID-19; D63.1 Anemia in chronic kidney disease; E11.22 Type 2 diabetes mellitus with diabetic chronic kidney disease; L40.9 Psoriasis, unspecified; I35.0 Nonrheumatic aortic (valve) stenosis; K75.81 Nonalcoholic steatohepatitis (NASH); E87.6 Hypokalemia; I25.10 Atherosclerotic heart disease of native coronary artery without angina pectoris; F32.9 Major depressive disorder, single episode, unspecified; E03.9 Hypothyroidism, unspecified; Z95.1 Presence of aortocoronary bypass graft; Z99.2 Dependence on renal dialysis; Z90.710 Acquired absence of both cervix and uterus
CPT/HCPCS: 36415; 36416; 51701; 70450; 80048; 80053; 80306; 80307; 81003; 81015; 82140; 83605; 83735; 84100; 84443; 85025; 85610; 87040; 87077; 87086; 87186; 87635; 90935; 93005; 96365; 96375; G0257; G0378; J0744; J1815; J3490; U0003; U0005

== ENCOUNTER 2021-02-23 06:47 | Inpatient (IN) | payer MEDICARE ==
[2021-02-23 08:33] LABS: ALT (SGPT) 20 U/L (8-55); AST (SGOT) 18 U/L (5-34); Albumin 2.5 g/dL (3.4-4.8); Alkaline Phosphatase 98 U/L (40-110); Anion Gap 14 mmol/L (10-20); BUN (Urea Nitrogen) 66 mg/dL (9.8-20.1); Bilirubin, Total 1.1 mg/dL (0.2-1.2); Calc. Creatinine Clearance 0 mL/min (70-130); Calcium 7.8 mg/dL (7.8-10.44); Carbon Dioxide 24 mmol/L (23-31); Chloride 98 mmol/L (98-107); Globulin 3.5 g/dL (2.4-3.5); Glucose 537 mg/dL (83-110); Potassium 4.4 mmol/L (3.5-5.1); Sodium 132 mmol/L (136-145)
[2021-02-23 08:35] LABS: Anisocytosis SLIGHT = 6-15 cells (100X) (0-5/hpf); Hemoglobin 11.4 g/dL (12.0-16.0); Lymphocytes 5 % (21-51); MDiff Complete? YES; Mean Corpuscular HGB CONC 34.1 g/dL (32.0-36.0); Mean Corpuscular Hemoglobin 33.6 pg (27.0-31.0); Mean Corpuscular Volume 98.5 fL (78.0-98.0); Mean Platelet Volume 8.1 fL (7.4-10.4); Monocytes 4 % (0-10); Neutrophil 90 % (42-75); Platelet Count 91 thou/uL (130-400); Platelet Morphology Comment Appears Decreased; RBC Distribution Width 15.1 % (11.5-14.5); Reactive Lymphocytes 1 % (0-10); Red Blood Cell (RBC) Count 3.38 mill/uL (4.20-5.40)
[2021-02-23 09:17] LABS: Bacteria/HPF 4+ HPF (None Seen); Bilirubin Negative (Negative); Blood, Urine Trace (Negative); Clarity Turbid (Clear); Glucose, Urine (Dipstick) Greater than 1000 mg/dL (Negative); Ketone, Urine Negative (Negative); Leukocyte 500 Leu/uL (Negative); Nitrite Negative (Negative); Protein, Urine (Dipstick) Negative (Neg-Trace); RBC/HPF 0-3 HPF (0-3); Specific Gravity, Urine 1.015 (1.002-1.036); Squamous Epithelial 0-3 HPF (0-3); Urobilinogen Normal mg/dL (Less than 2); WBC/HPF 21-50 HPF (0-3)
[2021-02-23] MEDS ORDERED: Vancomycin 1 GM/200 ML BAG ONE (09:40)
[2021-02-23] MEDS ORDERED: Cefepime 2 GM VIAL ONE (09:43)
[2021-02-23 11:33] LABS: Lactic Acid 2.8 mmol/L (0.5-2.2)
[2021-02-23 12:03] LABS: SARS-CoV-2 NAA Rapid Test DETECTED (NotDetected)
[2021-02-23] MEDS ORDERED: Sodium Chloride 0.9% 1,000 ML IV SCH (13:30)
[2021-02-23] MEDS ORDERED: hydrOXYzine 10 MG TAB PO PRN (15:39)
[2021-02-23] MEDS ORDERED: Ondansetron PF 4 MG/2 ML Vial IVP PRN (15:39)
[2021-02-23] MEDS ORDERED: Dextrose 5% in Water 1,000 ML IV PRN (15:39)
[2021-02-23] MEDS ORDERED: Acetaminophen 500 MG TAB PO PRN (15:39)
[2021-02-23] MEDS ORDERED: Vancomycin HCl 1 GM in Sodium Chloride 0.9% 250 ML 300 ML IVPB SCH (15:39)
[2021-02-23] MEDS ORDERED: Ondansetron ODT 4 MG TAB PO PRN (15:39)
[2021-02-23] MEDS ORDERED: Dextrose 50% Abboject 50 ML SYRINGE SLOW IVP PRN (15:39)
[2021-02-23] MEDS ORDERED: Zinc Sulfate 220 MG CAP PO SCH (16:15)
[2021-02-23] MEDS ORDERED: Cholecalciferol (Vitamin D3) 400 UNITS TAB PO SCH (16:15)
[2021-02-23] MEDS ORDERED: Ascorbic Acid 500 mg Chewable Tablet PO SCH (16:15)
[2021-02-23] MEDS: Sodium Chloride 0.9% 1,000 ML IV SCH (17:02)
[2021-02-23] MEDS: HumaLOG 300 UNITS/3 ML VIAL SC PRN (18:45)
[2021-02-23] MEDS: Rifaximin 550 MG TAB PO SCH (20:24)
[2021-02-23] MEDS: Heparin 5,000 UNITS/ML VIAL SC SCH (20:27)
[2021-02-23] MEDS ORDERED: Famotidine 20 MG TAB PO SCH (21:00)
[2021-02-23] MEDS ORDERED: Heparin 5,000 UNITS/ML VIAL SC SCH (21:00)
[2021-02-24 05:01] LABS: Anion Gap 10 mmol/L (10-20); BUN (Urea Nitrogen) 30 mg/dL (9.8-20.1); Calc. Creatinine Clearance 22 mL/min (70-130); Calcium 7.4 mg/dL (7.8-10.44); Carbon Dioxide 26 mmol/L (23-31); Chloride 105 mmol/L (98-107); Glucose 67 mg/dL (83-110); Potassium 3.2 mmol/L (3.5-5.1); Sodium 138 mmol/L (136-145)
[2021-02-24 05:02] LABS: Hemoglobin 11.2 g/dL (12.0-16.0); Lymphocytes 12 % (21-51); MDiff Complete? YES; Mean Corpuscular HGB CONC 34.3 g/dL (32.0-36.0); Mean Corpuscular Hemoglobin 33.8 pg (27.0-31.0); Mean Corpuscular Volume 98.5 fL (78.0-98.0); Mean Platelet Volume 7.8 fL (7.4-10.4); Monocytes 2 % (0-10); Neutrophil 86 % (42-75); Platelet Count 76 thou/uL (130-400); Platelet Morphology Comment Appears Decreased; RBC Distribution Width 15.3 % (11.5-14.5); Red Blood Cell (RBC) Count 3.32 mill/uL (4.20-5.40); White Blood Cell (WBC) Count 7.5 thou/uL (4.8-10.8)
[2021-02-24] MEDS: Levothyroxine Sodium 75 MCG TAB PO SCH (06:31)
[2021-02-24] MEDS ORDERED: Potassium Chloride 20 MEQ TAB PO SCH (08:45)
[2021-02-24] MEDS: Ascorbic Acid 500 mg Chewable Tablet PO SCH (09:32)
[2021-02-24] MEDS: Zinc Sulfate 220 MG CAP PO SCH (09:33)
[2021-02-24] MEDS: Rifaximin 550 MG TAB PO SCH ×2 (09:33→20:44)
[2021-02-24] MEDS: Cholecalciferol (Vitamin D3) 400 UNITS TAB PO SCH (09:34)
[2021-02-24] MEDS: Heparin 5,000 UNITS/ML VIAL SC SCH ×2 (09:43→20:49)
[2021-02-24] MEDS: Cefepime 1 GM in Sodium Chloride 0.9% 100 ML IVPB SCH (09:44)
[2021-02-24] MEDS: Sodium Chloride 0.9% 1,000 ML IV SCH (10:02)
[2021-02-24 10:14] LABS: Vancomycin, Random 9.7 ug/mL (See Comment)
[2021-02-24] MEDS ORDERED: Vancomycin HCl 1 GM in Sodium Chloride 0.9% 250 ML 300 ML IVPB SCH (11:00)
[2021-02-24] MEDS ORDERED: Vancomycin 1 GM in Premix Bag 1 BAG IVPB SCH (11:00)
[2021-02-24] MEDS: Lantus 1000 UNITS/10 ML VIAL SC SCH (12:35)
[2021-02-24] MEDS: HumaLOG 300 UNITS/3 ML VIAL SC PRN ×2 (17:31→20:48)
[2021-02-24] MEDS: Famotidine 20 MG TAB PO SCH (20:44)
[2021-02-25] MEDS: Levothyroxine Sodium 75 MCG TAB PO SCH (05:52)
[2021-02-25] MEDS: HumaLOG 300 UNITS/3 ML VIAL SC PRN ×4 (05:52→20:49)
[2021-02-25] MEDS: Cholecalciferol (Vitamin D3) 400 UNITS TAB PO SCH (09:25)
[2021-02-25] MEDS: Rifaximin 550 MG TAB PO SCH ×2 (09:25→20:48)
[2021-02-25] MEDS: Ascorbic Acid 500 mg Chewable Tablet PO SCH (09:25)
[2021-02-25] MEDS: Zinc Sulfate 220 MG CAP PO SCH (09:26)
[2021-02-25] MEDS: Lantus 1000 UNITS/10 ML VIAL SC SCH (09:27)
[2021-02-25] MEDS: Heparin 5,000 UNITS/ML VIAL SC SCH ×2 (09:27→20:48)
[2021-02-25] MEDS: Cefepime 1 GM in Sodium Chloride 0.9% 100 ML IVPB SCH (09:39)
[2021-02-25 11:42] LABS: Vancomycin, Random 17.9 ug/mL (See Comment)
[2021-02-25] MEDS ORDERED: Vancomycin HCl 250 MG in Sodium Chloride 0.9% 100 ML IVPB SCH (12:15)
[2021-02-25] MEDS: Dexamethasone 4 MG TAB PO SCH (12:42)
[2021-02-25 15:15] VITALS: BMI 24.5
[2021-02-25] MEDS: Famotidine 20 MG TAB PO SCH (20:48)
[2021-02-26 05:04] LABS: Albumin 2.1 g/dL (3.4-4.8); Anion Gap 12 mmol/L (10-20); BUN (Urea Nitrogen) 46 mg/dL (9.8-20.1); BUN/Creatinine Ratio 15.75; CRP (Inflammatory) 3.66 mg/dL (= or < 0.5); Calc. Creatinine Clearance 16 mL/min (70-130); Calcium 7.4 mg/dL (7.8-10.44); Carbon Dioxide 21 mmol/L (23-31); Chloride 106 mmol/L (98-107); Glucose 419 mg/dL (83-110); Phosphorus 3.5 mg/dL (2.3-4.7); Potassium 4.8 mmol/L (3.5-5.1); Sodium 134 mmol/L (136-145)
[2021-02-26] MEDS: Levothyroxine Sodium 75 MCG TAB PO SCH (05:23)
[2021-02-26] MEDS: HumaLOG 300 UNITS/3 ML VIAL SC PRN ×4 (05:26→21:33)
[2021-02-26] MEDS ORDERED: Ergocalciferol 1.25 MG(50,000 UNITS) CAP PO SCH (09:00)
[2021-02-26] MEDS ORDERED: Lantus 1000 UNITS/10 ML VIAL SC SCH (09:15)
[2021-02-26] MEDS: Ascorbic Acid 500 mg Chewable Tablet PO SCH (09:24)
[2021-02-26] MEDS: Cholecalciferol (Vitamin D3) 400 UNITS TAB PO SCH (09:24)
[2021-02-26] MEDS: Rifaximin 550 MG TAB PO SCH ×2 (09:25→21:33)
[2021-02-26] MEDS: Zinc Sulfate 220 MG CAP PO SCH (09:25)
[2021-02-26] MEDS: Dexamethasone 4 MG TAB PO SCH (09:25)
[2021-02-26] MEDS: Heparin 5,000 UNITS/ML VIAL SC SCH ×2 (09:26→21:32)
[2021-02-26] MEDS: Lantus 1000 UNITS/10 ML VIAL SC SCH ×2 (09:29→09:45)
[2021-02-26] MEDS: Cefepime 1 GM in Sodium Chloride 0.9% 100 ML IVPB SCH (09:44)
[2021-02-26 11:48] LABS: Vancomycin, Random 20.4 ug/mL (See Comment)
[2021-02-26] MEDS ORDERED: Vancomycin HCl 500 MG in Sodium Chloride 0.9% 100 ML IVPB SCH (12:45)
[2021-02-26] MEDS ORDERED: HOLD VANCOMYCIN FOR LEVEL >20 FS SCH (12:45)
[2021-02-26] MEDS ORDERED: Vancomycin HCl 750 MG in Sodium Chloride 0.9% 250 ML 250 ML IVPB SCH (12:45)
[2021-02-26] MEDS ORDERED: Vancomycin HCl 250 MG in Sodium Chloride 0.9% 100 ML IVPB SCH (12:45)
[2021-02-26] MEDS ORDERED: Vancomycin 1 GM in Premix Bag 1 BAG IVPB SCH (12:45)
[2021-02-26] MEDS: Famotidine 20 MG TAB PO SCH (21:32)
[2021-02-27 05:24] LABS: #Lymphocytes 0.3 thou/uL (1.20-3.40); #Monocytes 0.3 thou/uL (0.11-0.59); #Neutrophils 6.5 thou/uL (1.40-6.50); %Eosinophils 0.1 % (0.0-10.0); %Lymphocytes 4.5 % (21.0-51.0); %Monocytes 4.6 % (0.0-10.0); %Neutrophils 90.8 % (42.0-75.0); Hemoglobin 10.3 g/dL (12.0-16.0); Mean Corpuscular HGB CONC 33.7 g/dL (32.0-36.0); Mean Platelet Volume 8.6 fL (7.4-10.4); Platelet Count 65 thou/uL (130-400); RBC Distribution Width 15.9 % (11.5-14.5); Red Blood Cell (RBC) Count 3.05 mill/uL (4.20-5.40); White Blood Cell (WBC) Count 7.2 thou/uL (4.8-10.8)
[2021-02-27 05:45] LABS: Anion Gap 12 mmol/L (10-20); BUN (Urea Nitrogen) 28 mg/dL (9.8-20.1); Calc. Creatinine Clearance 21 mL/min (70-130); Calcium 7.4 mg/dL (7.8-10.44); Carbon Dioxide 26 mmol/L (23-31); Chloride 101 mmol/L (98-107); Glucose 289 mg/dL (83-110); Potassium 3.7 mmol/L (3.5-5.1); Sodium 135 mmol/L (136-145)
[2021-02-27] MEDS: Levothyroxine Sodium 75 MCG TAB PO SCH (05:45)
[2021-02-27] MEDS: HumaLOG 300 UNITS/3 ML VIAL SC PRN ×2 (05:51→13:10)
[2021-02-27 08:25] VITALS: TEMP 98.3
[2021-02-27] MEDS ORDERED: Insulin Regular 300 UNITS/3 ML VIAL ONE (08:52)
[2021-02-27] MEDS: Ascorbic Acid 500 mg Chewable Tablet PO SCH (09:01)
[2021-02-27] MEDS: Rifaximin 550 MG TAB PO SCH (09:02)
[2021-02-27] MEDS: Zinc Sulfate 220 MG CAP PO SCH (09:02)
[2021-02-27] MEDS: Dexamethasone 4 MG TAB PO SCH (09:02)
[2021-02-27] MEDS: Lantus 1000 UNITS/10 ML VIAL SC SCH (09:04)
[2021-02-27] MEDS: Heparin 5,000 UNITS/ML VIAL SC SCH (09:09)
[2021-02-27] MEDS: Cholecalciferol (Vitamin D3) 400 UNITS TAB PO SCH (09:09)
[2021-02-27] MEDS ORDERED: EPOETIN ALFA-EPBX (ESRD) 4,000 UNIT/ML VIAL SC SCH (09:15)
[2021-02-27] MEDS ORDERED: Amoxicillin/Potassium Clav 875 MG TAB PO SCH (12:15)
[2021-02-27 13:50] VITALS: BP 148/62
== END 2021-02-27 16:19 | disposition home or self-care (01) | DRG 871 ==
LOC: ERS 06:47 → 2SW 09:43
PROVIDERS: ADMIT Family Medicine; ATTEND Internal Medicine
PROC: 5A1D70Z Performance of Urinary Filtration, Intermittent, Less than 6 Hours Per Day (ICD-10-PCS; principal; 2021-02-23)
PROC: 8E0ZXY6 Isolation (ICD-10-PCS; 2021-02-23)
DX: A41.59 Other Gram-negative sepsis (principal); G93.41 Metabolic encephalopathy; U07.1 COVID-19; N18.6 End stage renal disease; K76.7 Hepatorenal syndrome; J12.82 Pneumonia due to coronavirus disease 2019; I12.0 Hypertensive chronic kidney disease with stage 5 chronic kidney disease or end stage renal disease; K74.60 Unspecified cirrhosis of liver; E03.9 Hypothyroidism, unspecified; I25.10 Atherosclerotic heart disease of native coronary artery without angina pectoris; K75.4 Autoimmune hepatitis; D63.1 Anemia in chronic kidney disease; E11.65 Type 2 diabetes mellitus with hyperglycemia; K72.90 Hepatic failure, unspecified without coma; E87.6 Hypokalemia; E11.22 Type 2 diabetes mellitus with diabetic chronic kidney disease; E83.51 Hypocalcemia; Z99.2 Dependence on renal dialysis; Z79.4 Long term (current) use of insulin; Z88.5 Allergy status to narcotic agent; Z88.1 Allergy status to other antibiotic agents; Z95.1 Presence of aortocoronary bypass graft; Z90.710 Acquired absence of both cervix and uterus; Z79.82 Long term (current) use of aspirin; Z79.899 Other long term (current) drug therapy; Z79.890 Hormone replacement therapy
CPT/HCPCS: 36415; 36416; 51701; 70450; 71045; 80048; 80053; 80069; 80202; 81003; 81015; 82010; 82140; 82306; 82728; 83605; 85025; 86140; 87040; 87077; 87086; 87186; 90935; 93005; 96365; 96367; G0257; J0692; J1644; J1815; J3370; J3490; J7050; J8540; U0002

== ENCOUNTER 2021-04-16 02:42 | Inpatient (IN) | payer MEDICARE ==
[2021-04-16 03:45] LABS: #Eosinphils 0.3 thou/uL (0.0-0.7); #Lymphocytes 1.3 thou/uL (1.20-3.40); #Monocytes 0.5 thou/uL (0.11-0.59); #Neutrophils 2.1 thou/uL (1.40-6.50); %Basophils 0.8 % (0.0-1.0); %Eosinophils 6.3 % (0.0-10.0); %Lymphocytes 31.3 % (21.0-51.0); %Monocytes 11.9 % (0.0-10.0); %Neutrophils 49.7 % (42.0-75.0); Hemoglobin 9.2 g/dL (12.0-16.0); Mean Corpuscular HGB CONC 32.6 g/dL (32.0-36.0); Mean Corpuscular Hemoglobin 31.9 pg (27.0-31.0); Mean Corpuscular Volume 97.9 fL (78.0-98.0); Mean Platelet Volume 6.3 fL (7.4-10.4); Platelet Count 150 thou/uL (130-400); RBC Distribution Width 14.7 % (11.5-14.5); White Blood Cell (WBC) Count 4.2 thou/uL (4.8-10.8)
[2021-04-16 04:08] LABS: ALT (SGPT) 14 U/L (8-55); AST (SGOT) 23 U/L (5-34); Albumin 2.1 g/dL (3.4-4.8); Alkaline Phosphatase 172 U/L (40-110); Anion Gap 12 mmol/L (10-20); BUN (Urea Nitrogen) 21 mg/dL (9.8-20.1); Bilirubin, Total 0.5 mg/dL (0.2-1.2); Calc. Creatinine Clearance 0 mL/min (70-130); Calcium 8.1 mg/dL (7.8-10.44); Carbon Dioxide 27 mmol/L (23-31); Chloride 105 mmol/L (98-107); Globulin 3.6 g/dL (2.4-3.5); Glucose 122 mg/dL (83-110); Lipase Less than 4 U/L (8-78); Magnesium 2.2 mg/dL (1.6-2.6); Potassium 3.8 mmol/L (3.5-5.1); Protein, Total 5.7 g/dL (5.8-8.1); Sodium 140 mmol/L (136-145)
[2021-04-16 06:56] LABS: Bilirubin Negative (Negative); Blood, Urine Negative (Negative); Clarity Turbid (Clear); Glucose, Urine (Dipstick) Normal (Negative); Ketone, Urine Trace mg/dL (Negative); Leukocyte 500 Leu/uL (Negative); Nitrite Negative (Negative); Protein, Urine (Dipstick) 30 mg/dL (Neg-Trace); RBC/HPF 0-3 HPF (0-3); Specific Gravity, Urine 1.015 (1.002-1.036); Urobilinogen Normal mg/dL (Less than 2); WBC/HPF Greater than 50 HPF (0-3)
[2021-04-16 07:04] LABS: Bacteria/HPF 4+ HPF (None Seen)
[2021-04-16 07:54] LABS: SARS-CoV-2 NAA Rapid Test Not Detected (NotDetected)
[2021-04-16] MEDS ORDERED: Acetaminophen 650 MG Suppository PR PRN (08:09)
[2021-04-16] MEDS ORDERED: Acetaminophen 325 MG TAB PO PRN (08:09)
[2021-04-16] MEDS ORDERED: Ondansetron PF 4 MG/2 ML Vial IVP PRN (08:09)
[2021-04-16] MEDS ORDERED: Ondansetron ODT 4 MG TAB PO PRN (08:09)
[2021-04-16] MEDS ORDERED: Dextrose 5% in Water 1,000 ML IV PRN (08:12)
[2021-04-16] MEDS ORDERED: Dextrose 50% Abboject 50 ML SYRINGE SLOW IVP PRN (08:12)
[2021-04-16] MEDS ORDERED: Insulin Regular 300 UNITS/3 ML VIAL SC PRN ×2 (08:12)
[2021-04-16] MEDS ORDERED: Cefepime 2 GM in Sodium Chloride 0.9% 100 ML IVPB SCH ×2 (09:00→09:15)
[2021-04-16] MEDS ORDERED: Enoxaparin Sodium 30 MG/0.3 ML SYRINGE SC SCH (09:00)
[2021-04-16] MEDS ORDERED: hydrALAZINE 20 MG/ML VIAL SLOW IVP PRN (11:12)
[2021-04-16 13:42] VITALS: BMI 24.7
[2021-04-16] MEDS ORDERED: Albuterol 200 PUFF (6.7GM INHALER) INH PRN (18:31)
[2021-04-17 05:38] LABS: #Eosinphils 0.2 thou/uL (0.0-0.7); #Lymphocytes 1.5 thou/uL (1.20-3.40); #Monocytes 0.6 thou/uL (0.11-0.59); #Neutrophils 1.8 thou/uL (1.40-6.50); %Basophils 0.8 % (0.0-1.0); %Eosinophils 5.7 % (0.0-10.0); %Lymphocytes 35.9 % (21.0-51.0); %Monocytes 14.4 % (0.0-10.0); %Neutrophils 43.3 % (42.0-75.0); Hemoglobin 8.6 g/dL (12.0-16.0); Mean Corpuscular HGB CONC 32.9 g/dL (32.0-36.0); Mean Corpuscular Hemoglobin 32.4 pg (27.0-31.0); Mean Corpuscular Volume 98.5 fL (78.0-98.0); Mean Platelet Volume 6.6 fL (7.4-10.4); Platelet Count 122 thou/uL (130-400); RBC Distribution Width 14.8 % (11.5-14.5); Red Blood Cell (RBC) Count 2.65 mill/uL (4.20-5.40); White Blood Cell (WBC) Count 4.1 thou/uL (4.8-10.8)
[2021-04-17] MEDS ORDERED: Levothyroxine Sodium 75 MCG TAB PO SCH (06:00)
[2021-04-17 06:04] LABS: Anion Gap 10 mmol/L (10-20); BUN (Urea Nitrogen) 11 mg/dL (9.8-20.1); Calc. Creatinine Clearance 23 mL/min (70-130); Calcium 7.8 mg/dL (7.8-10.44); Carbon Dioxide 28 mmol/L (23-31); Chloride 106 mmol/L (98-107); Glucose 87 mg/dL (83-110); Potassium 3.7 mmol/L (3.5-5.1); Sodium 140 mmol/L (136-145)
[2021-04-17] MEDS ORDERED: Cefepime 1 GM in Sodium Chloride 0.9% 100 ML IVPB SCH (09:00)
[2021-04-17] MEDS ORDERED: Lantus 1000 UNITS/10 ML VIAL SC SCH (09:00)
[2021-04-17] MEDS ORDERED: Amoxicillin/Potassium Clav 875 MG TAB PO SCH (09:00)
[2021-04-17] MEDS ORDERED: Aspirin 81 mg Enteric Coated Tablet PO SCH (09:00)
[2021-04-17 15:48] VITALS: BP 126/57; TEMP 97.2
== END 2021-04-17 19:10 | disposition home or self-care (01) | DRG 441 ==
LOC: ERS 02:42 → ERHOLD 04:52 → ONC 09:49 → OBSVTOIN 18:32
PROVIDERS: ADMIT Student in an Organized Health Care Education/Training Program; ATTEND Internal Medicine
PROC: 5A1D70Z Performance of Urinary Filtration, Intermittent, Less than 6 Hours Per Day (ICD-10-PCS; principal; 2021-04-16)
DX: K72.00 Acute and subacute hepatic failure without coma (principal); N18.6 End stage renal disease; N30.00 Acute cystitis without hematuria; I13.2 Hypertensive heart and chronic kidney disease with heart failure and with stage 5 chronic kidney disease, or end stage renal disease; K76.6 Portal hypertension; E78.5 Hyperlipidemia, unspecified; J44.9 Chronic obstructive pulmonary disease, unspecified; I25.10 Atherosclerotic heart disease of native coronary artery without angina pectoris; K74.60 Unspecified cirrhosis of liver; I44.0 Atrioventricular block, first degree; I50.9 Heart failure, unspecified; E11.22 Type 2 diabetes mellitus with diabetic chronic kidney disease; E03.9 Hypothyroidism, unspecified; D63.1 Anemia in chronic kidney disease; Z20.822 Contact with and (suspected) exposure to COVID-19; F32.A Depression, unspecified; Z88.8 Allergy status to other drugs, medicaments and biological substances; Z79.4 Long term (current) use of insulin; Z79.51 Long term (current) use of inhaled steroids; Z79.82 Long term (current) use of aspirin; Z79.899 Other long term (current) drug therapy; Z95.1 Presence of aortocoronary bypass graft; Z90.710 Acquired absence of both cervix and uterus; Z99.2 Dependence on renal dialysis; Z91.19 Patient's noncompliance with other medical treatment and regimen; Z86.16 Personal history of COVID-19
CPT/HCPCS: 36415; 36416; 71045; 80048; 80053; 81003; 81015; 82140; 83690; 83735; 84443; 84484; 85025; 90935; 93005; G0257; G0378; J1815; U0002

== ENCOUNTER 2021-12-10 05:50 | Observation (INO) | payer MEDICARE ==
[2021-12-10 06:21] LABS: #Eosinphils 0.1 thou/uL (0.0-0.7); #Lymphocytes 1.2 thou/uL (1.20-3.40); #Monocytes 0.4 thou/uL (0.11-0.59); #Neutrophils 2.3 thou/uL (1.40-6.50); %Basophils 0.7 % (0.0-1.0); %Eosinophils 3.5 % (0.0-10.0); %Lymphocytes 29.9 % (21.0-51.0); %Monocytes 9.9 % (0.0-10.0); %Neutrophils 55.9 % (42.0-75.0); Hemoglobin 11.3 g/dL (12.0-16.0); Mean Corpuscular HGB CONC 32.2 g/dL (32.0-36.0); Mean Corpuscular Volume 99.3 fL (78.0-98.0); Mean Platelet Volume 7.4 fL (7.4-10.4); Platelet Count 132 thou/uL (130-400); Red Blood Cell (RBC) Count 3.54 mill/uL (4.20-5.40); White Blood Cell (WBC) Count 4.1 thou/uL (4.8-10.8)
[2021-12-10 06:50] LABS: ALT (SGPT) 19 U/L (8-55); AST (SGOT) 38 U/L (5-34); Albumin 3.3 g/dL (3.4-4.8); Alkaline Phosphatase 141 U/L (40-110); Anion Gap 18 mmol/L (10-20); BUN (Urea Nitrogen) 45 mg/dL (9.8-20.1); Bilirubin, Total 0.7 mg/dL (0.2-1.2); Calc. Creatinine Clearance 0 mL/min (70-130); Carbon Dioxide 24 mmol/L (23-31); Chloride 102 mmol/L (98-107); Globulin 3.1 g/dL (2.4-3.5); Glucose 161 mg/dL (83-110); Potassium 4.1 mmol/L (3.5-5.1); Protein, Total 6.4 g/dL (5.8-8.1); Sodium 140 mmol/L (136-145)
[2021-12-10] MEDS ORDERED: Ondansetron ODT 4 MG TAB PO PRN (07:16)
[2021-12-10] MEDS ORDERED: Acetaminophen 325 MG TAB PO PRN (07:16)
[2021-12-10] MEDS ORDERED: Ondansetron PF 4 MG/2 ML Vial IVP PRN (07:16)
[2021-12-10] MEDS ORDERED: Dextrose 50% Abboject 50 ML SYRINGE SLOW IVP PRN (07:37)
[2021-12-10] MEDS ORDERED: Dextrose 5% in Water 1,000 ML IV PRN (07:37)
[2021-12-10] MEDS ORDERED: HumaLOG 300 UNITS/3 ML VIAL SC PRN ×2 (07:37)
[2021-12-10 08:07] LABS: Hemoglobin A1c 5.9 % (4.0-6.0)
[2021-12-10 09:02] LABS: HBSAB Concentration Less than 8.00 mIU/mL; HBSAg Index 0.17 S/CO (0-0.99); Hep B Core Total Ab Non-Reactive (NonReactive); Hep B Core Total Index 0.06 S/CO (0-0.79); Hep B Surf AB Non-Reactive (NonReactive); Hep B Surf Ag Non-Reactive S/CO (NonReactive); Hep C IgG Ab Non-Reactive (NonReactive); Hep C Index 0.19 S/CO (0-0.79)
[2021-12-10 09:04] VITALS: BMI 25.4
[2021-12-10] MEDS ORDERED: hydrALAZINE 20 MG/ML VIAL SLOW IVP PRN (21:21)
[2021-12-10 21:59] LABS: Amphetamine Not Detected (NotDetected); Barbiturates Screen Not Detected (NotDetected); Benzodiazepine Screen Not Detected (NotDetected); Cocaine Metabolite Screen Not Detected (NotDetected); Methadone Not Detected (NotDetected); Methamphetamine Not Detected (NotDetected); Opiate Screen Not Detected (NotDetected); Oxycodone Screen Not Detected (NotDetected); Phencyclidine (PCP) Not Detected (NotDetected); THC/Cannabinoid Screen Not Detected (NotDetected); Tricyclic Screen Not Detected (NotDetected)
[2021-12-10 22:04] LABS: Bacteria/HPF 1+ HPF (None Seen); Bilirubin Negative (Negative); Blood, Urine Negative (Negative); Clarity Turbid (Clear); Glucose, Urine (Dipstick) Normal (Negative); Ketone, Urine Negative (Negative); Leukocyte Negative Leu/uL (Negative); Nitrite Negative (Negative); Protein, Urine (Dipstick) 50 mg/dL (Neg-Trace); RBC/HPF 0-3 HPF (0-3); Specific Gravity, Urine 1.011 (1.002-1.036); Squamous Epithelial 0-3 HPF (0-3); Urobilinogen Normal mg/dL (Less than 2); WBC/HPF 0-3 HPF (0-3); pH, Urine 7.5 (5.0-9.0)
[2021-12-11 05:31] LABS: INR-International Normal Ratio 1.1; Prothrombin Time 14.5 sec (12.0-14.7)
[2021-12-11 05:48] LABS: ALT (SGPT) 23 U/L (8-55); AST (SGOT) 45 U/L (5-34); Albumin 2.7 g/dL (3.4-4.8); Alkaline Phosphatase 100 U/L (40-110); Anion Gap 15 mmol/L (10-20); BUN (Urea Nitrogen) 19 mg/dL (9.8-20.1); Bilirubin, Total 0.9 mg/dL (0.2-1.2); Calc. Creatinine Clearance 12 mL/min (70-130); Calcium 8.6 mg/dL (7.8-10.44); Carbon Dioxide 28 mmol/L (23-31); Cardiac Risk 2.8 (Less than 4.5); Chloride 104 mmol/L (98-107); Cholesterol 158 mg/dl (< 200 Desired); Glucose 84 mg/dL (83-110); HDL Cholesterol 56 mg/dL (>60 Neg Risk); LDL Cholesterol, Calculated 90 mg/dL; Magnesium 2.1 mg/dL (1.6-2.6); Potassium 3.6 mmol/L (3.5-5.1); Protein, Total 5.7 g/dL (5.8-8.1); Sodium 143 mmol/L (136-145); Triglycerides 59 mg/dL (Less than 150)
[2021-12-11 06:13] LABS: #Eosinphils 0.2 thou/uL (0.0-0.7); #Lymphocytes 1.1 thou/uL (1.20-3.40); #Monocytes 0.5 thou/uL (0.11-0.59); #Neutrophils 1.8 thou/uL (1.40-6.50); %Basophils 1.4 % (0.0-1.0); %Eosinophils 5.9 % (0.0-10.0); %Lymphocytes 30.6 % (21.0-51.0); %Monocytes 13.2 % (0.0-10.0); %Neutrophils 48.9 % (42.0-75.0); Hemoglobin 11.3 g/dL (12.0-16.0); MDiff Complete? YES; Macrocytosis SLIGHT = 6-15 cells (100X) (0-5/hpf); Mean Corpuscular HGB CONC 32.5 g/dL (32.0-36.0); Mean Corpuscular Hemoglobin 32.9 pg (27.0-31.0); Mean Platelet Volume 7.3 fL (7.4-10.4); Platelet Count 111 thou/uL (130-400); Platelet Morphology Comment Appears Decreased; RBC Distribution Width 13.9 % (11.5-14.5); Red Blood Cell (RBC) Count 3.42 mill/uL (4.20-5.40); White Blood Cell (WBC) Count 3.6 thou/uL (4.8-10.8)
[2021-12-11] MEDS ORDERED: Amlodipine 5 MG TAB PO SCH (09:00)
[2021-12-11 11:59] VITALS: BP 125/63; TEMP 98.3
== END 2021-12-11 17:11 | disposition home or self-care (01) ==
LOC: ERS 05:50 → MSONC 07:16
PROVIDERS: ADMIT Hospitalist; ATTEND Hospitalist
DX: K72.00 Acute and subacute hepatic failure without coma (principal); G92.8 Other toxic encephalopathy; E72.20 Disorder of urea cycle metabolism, unspecified; K74.60 Unspecified cirrhosis of liver; I11.9 Hypertensive heart disease without heart failure; E11.22 Type 2 diabetes mellitus with diabetic chronic kidney disease; K76.7 Hepatorenal syndrome; N18.6 End stage renal disease; D63.1 Anemia in chronic kidney disease; E78.5 Hyperlipidemia, unspecified; I25.10 Atherosclerotic heart disease of native coronary artery without angina pectoris; J44.9 Chronic obstructive pulmonary disease, unspecified; J81.1 Chronic pulmonary edema; I44.7 Left bundle-branch block, unspecified; R94.31 Abnormal electrocardiogram [ECG] [EKG]; E87.70 Fluid overload, unspecified; Z86.16 Personal history of COVID-19; Z91.14 Patient's other noncompliance with medication regimen; Z79.82 Long term (current) use of aspirin; Z79.899 Other long term (current) drug therapy; Z88.1 Allergy status to other antibiotic agents; Z88.5 Allergy status to narcotic agent; Z88.6 Allergy status to analgesic agent; Z95.1 Presence of aortocoronary bypass graft; Z99.2 Dependence on renal dialysis; Z20.822 Contact with and (suspected) exposure to COVID-19
CPT/HCPCS: 71045; 76705; 80053; 80061; 80306; 81001; 82140 ×2; 82607; 82746; 82962 ×2; 83036; 83735; 85025; 85610; 85730; 86704; 87086; 87340; 93005; 97116; 97139 ×4; U0003; U0005; 36415; 36416; 84443; 90935; 93010; G0257; G0378

== ENCOUNTER 2021-12-30 20:45 | Inpatient (IN) | payer MEDICARE, OTHER ==
[2021-12-30 21:36] LABS: #Eosinphils 0.2 thou/uL (0.0-0.7); #Lymphocytes 1.2 thou/uL (1.20-3.40); #Monocytes 0.5 thou/uL (0.11-0.59); #Neutrophils 2.4 thou/uL (1.40-6.50); %Basophils 0.6 % (0.0-1.0); %Eosinophils 3.7 % (0.0-10.0); %Lymphocytes 27.3 % (21.0-51.0); %Monocytes 11.9 % (0.0-10.0); %Neutrophils 56.4 % (42.0-75.0); Hemoglobin 11.4 g/dL (12.0-16.0); Mean Corpuscular HGB CONC 33.4 g/dL (32.0-36.0); Mean Corpuscular Hemoglobin 33.6 pg (27.0-31.0); Mean Platelet Volume 7.9 fL (7.4-10.4); Platelet Count 118 thou/uL (130-400); RBC Distribution Width 13.9 % (11.5-14.5); Red Blood Cell (RBC) Count 3.41 mill/uL (4.20-5.40); White Blood Cell (WBC) Count 4.3 thou/uL (4.8-10.8)
[2021-12-30 21:49] LABS: ALT (SGPT) 16 U/L (8-55); AST (SGOT) 32 U/L (5-34); Albumin 3.3 g/dL (3.4-4.8); Alkaline Phosphatase 115 U/L (40-110); Anion Gap 20 mmol/L (10-20); BUN (Urea Nitrogen) 46 mg/dL (9.8-20.1); Bilirubin, Total 0.6 mg/dL (0.2-1.2); Calc. Creatinine Clearance 0 mL/min (70-130); Carbon Dioxide 23 mmol/L (23-31); Chloride 102 mmol/L (98-107); Estimated GFR 6; Globulin 3.5 g/dL (2.4-3.5); Glucose 161 mg/dL (83-110); Potassium 4.3 mmol/L (3.5-5.1); Protein, Total 6.8 g/dL (5.8-8.1); Sodium 141 mmol/L (136-145)
[2021-12-30 22:19] LABS: CK (CPK) 86 U/L (29-168); Lipase Less than 4 U/L (8-78)
[2021-12-31] MEDS ORDERED: Ondansetron ODT 4 MG TAB SL PRN (06:45)
[2021-12-31] MEDS ORDERED: Ondansetron PF 4 MG/2 ML Vial IVP PRN ×2 (06:45→21:00)
[2021-12-31 06:53] VITALS: BMI 25.3
[2021-12-31] MEDS ORDERED: HumaLOG 300 UNITS/3 ML VIAL SC PRN (10:56)
[2021-12-31] MEDS ORDERED: Dextrose 50% Abboject 50 ML SYRINGE SLOW IVP PRN (10:56)
[2021-12-31] MEDS ORDERED: Dextrose 5% in Water 1,000 ML IV PRN (10:56)
[2021-12-31] MEDS: HumaLOG 300 UNITS/3 ML VIAL SC PRN (12:00)
[2021-12-31] MEDS ORDERED: Lidocaine 3%/Hydrocortisone 0.5% CREAM TP SCH (13:25)
[2021-12-31] MEDS ORDERED: Lidocaine 4% Cream 5 GM TUBE w/ Tegaderm TOP SCH (13:45)
[2021-12-31] MEDS: Acetaminophen 500 MG TAB PO PRN ×2 (14:12→21:32)
[2021-12-31] MEDS: Rifaximin 550 MG TAB PO SCH (21:32)
[2022-01-01 05:38] LABS: ALT (SGPT) 13 U/L (8-55); AST (SGOT) 25 U/L (5-34); Albumin 2.7 g/dL (3.4-4.8); Alkaline Phosphatase 95 U/L (40-110); Anion Gap 15 mmol/L (10-20); BUN (Urea Nitrogen) 18 mg/dL (9.8-20.1); Bilirubin, Total 0.6 mg/dL (0.2-1.2); Calc. Creatinine Clearance 12 mL/min (70-130); Calcium 8.4 mg/dL (7.8-10.44); Carbon Dioxide 28 mmol/L (23-31); Chloride 99 mmol/L (98-107); Estimated GFR 13; Glucose 78 mg/dL (83-110); Magnesium 1.9 mg/dL (1.6-2.6); Potassium 3.3 mmol/L (3.5-5.1); Protein, Total 5.7 g/dL (5.8-8.1); Sodium 139 mmol/L (136-145)
[2022-01-01 05:57] LABS: #Eosinphils 0.3 thou/uL (0.0-0.7); #Lymphocytes 1.2 thou/uL (1.20-3.40); #Monocytes 0.6 thou/uL (0.11-0.59); #Neutrophils 2.9 thou/uL (1.40-6.50); %Basophils 0.9 % (0.0-1.0); %Eosinophils 5.1 % (0.0-10.0); %Lymphocytes 24.6 % (21.0-51.0); %Monocytes 11.1 % (0.0-10.0); %Neutrophils 58.3 % (42.0-75.0); Mean Corpuscular HGB CONC 32.5 g/dL (32.0-36.0); Mean Corpuscular Hemoglobin 32.7 pg (27.0-31.0); Mean Platelet Volume 7.4 fL (7.4-10.4); Platelet Count 97 thou/uL (130-400); RBC Distribution Width 13.7 % (11.5-14.5); Red Blood Cell (RBC) Count 3.37 mill/uL (4.20-5.40); White Blood Cell (WBC) Count 4.9 thou/uL (4.8-10.8)
[2022-01-01] MEDS: Levothyroxine Sodium 88 MCG TAB PO SCH (06:14)
[2022-01-01] MEDS ORDERED: Potassium Chloride 20 MEQ TAB PO SCH (09:00)
[2022-01-01] MEDS: Ferrous Sulfate 325 MG TAB PO SCH (09:46)
[2022-01-01] MEDS: Sevelamer Carbonate 800 MG TAB PO SCH ×3 (09:47→18:00)
[2022-01-01] MEDS: Cholecalciferol 1,000 UNITS (25 MCG) TAB PO SCH (09:48)
[2022-01-01] MEDS: Amlodipine 5 MG TAB PO SCH (09:48)
[2022-01-01] MEDS: Zinc Sulfate 220 MG CAP PO SCH (09:49)
[2022-01-01] MEDS: Ascorbic Acid 500 mg Chewable Tablet PO SCH (09:49)
[2022-01-01] MEDS: Aspirin 81 mg Enteric Coated Tablet PO SCH (09:50)
[2022-01-01] MEDS: HumaLOG 300 UNITS/3 ML VIAL SC PRN (11:10)
[2022-01-01] MEDS: Rifaximin 550 MG TAB PO SCH (21:52)
[2022-01-02] MEDS: Levothyroxine Sodium 88 MCG TAB PO SCH (05:56)
[2022-01-02 06:15] LABS: #Eosinphils 0.3 thou/uL (0.0-0.7); #Lymphocytes 1.5 thou/uL (1.20-3.40); #Monocytes 0.6 thou/uL (0.11-0.59); #Neutrophils 3.1 thou/uL (1.40-6.50); %Basophils 0.5 % (0.0-1.0); %Eosinophils 5.2 % (0.0-10.0); %Lymphocytes 27.4 % (21.0-51.0); %Neutrophils 56.8 % (42.0-75.0); Hemoglobin 10.8 g/dL (12.0-16.0); Mean Corpuscular HGB CONC 33.1 g/dL (32.0-36.0); Mean Corpuscular Hemoglobin 33.1 pg (27.0-31.0); Mean Platelet Volume 7.5 fL (7.4-10.4); Platelet Count 99 thou/uL (130-400); RBC Distribution Width 13.6 % (11.5-14.5); Red Blood Cell (RBC) Count 3.25 mill/uL (4.20-5.40); White Blood Cell (WBC) Count 5.5 thou/uL (4.8-10.8)
[2022-01-02 06:45] LABS: ALT (SGPT) 14 U/L (8-55); AST (SGOT) 24 U/L (5-34); Albumin 2.8 g/dL (3.4-4.8); Alkaline Phosphatase 111 U/L (40-110); Anion Gap 18 mmol/L (10-20); BUN (Urea Nitrogen) 25 mg/dL (9.8-20.1); Bilirubin, Total 0.5 mg/dL (0.2-1.2); Calc. Creatinine Clearance 8 mL/min (70-130); Calcium 8.2 mg/dL (7.8-10.44); Carbon Dioxide 25 mmol/L (23-31); Chloride 99 mmol/L (98-107); Estimated GFR 8; Globulin 2.9 g/dL (2.4-3.5); Glucose 95 mg/dL (83-110); Protein, Total 5.7 g/dL (5.8-8.1); Sodium 138 mmol/L (136-145)
[2022-01-02] MEDS ORDERED: Insulin Glargine 30 UNITS/0.3 ML VIAL SC SCH (09:00)
[2022-01-02] MEDS ORDERED: Non-Formulary Item 1 EACH (Insulin Detemir [Levemir Flextouch] 100 UNIT/ML Insuln.Pen) SQ SCH (09:00)
[2022-01-02 09:09] VITALS: TEMP 97.5
[2022-01-02] MEDS: Sevelamer Carbonate 800 MG TAB PO SCH ×2 (14:01→14:02)
[2022-01-02] MEDS: Amlodipine 5 MG TAB PO SCH (14:01)
[2022-01-02] MEDS: Ferrous Sulfate 325 MG TAB PO SCH (14:01)
[2022-01-02] MEDS: Cholecalciferol 1,000 UNITS (25 MCG) TAB PO SCH (14:02)
[2022-01-02] MEDS: Ascorbic Acid 500 mg Chewable Tablet PO SCH (14:02)
[2022-01-02] MEDS: Aspirin 81 mg Enteric Coated Tablet PO SCH (14:02)
[2022-01-02] MEDS: Zinc Sulfate 220 MG CAP PO SCH (14:02)
[2022-01-02 16:16] VITALS: BP 121/56
== END 2022-01-02 14:30 | disposition home or self-care (01) | DRG 441 ==
LOC: ERS 20:45 → ERHOLD 12-31 00:02 → SURG A 12-31 00:15 → OBSVTOIN 01-01 09:43
PROVIDERS: ADMIT Internal Medicine; ATTEND Internal Medicine
PROC: 5A1D70Z Performance of Urinary Filtration, Intermittent, Less than 6 Hours Per Day (ICD-10-PCS; principal; 2022-01-01)
DX: K72.90 Hepatic failure, unspecified without coma (principal); N18.6 End stage renal disease; K76.7 Hepatorenal syndrome; I12.0 Hypertensive chronic kidney disease with stage 5 chronic kidney disease or end stage renal disease; K74.60 Unspecified cirrhosis of liver; D63.1 Anemia in chronic kidney disease; E78.5 Hyperlipidemia, unspecified; J44.9 Chronic obstructive pulmonary disease, unspecified; E11.22 Type 2 diabetes mellitus with diabetic chronic kidney disease; E03.9 Hypothyroidism, unspecified; E87.6 Hypokalemia; Z20.822 Contact with and (suspected) exposure to COVID-19; I25.10 Atherosclerotic heart disease of native coronary artery without angina pectoris; Z95.1 Presence of aortocoronary bypass graft; Z88.5 Allergy status to narcotic agent; Z88.8 Allergy status to other drugs, medicaments and biological substances; Z79.4 Long term (current) use of insulin; Z79.51 Long term (current) use of inhaled steroids; Z91.14 Patient's other noncompliance with medication regimen; Z79.82 Long term (current) use of aspirin; Z79.899 Other long term (current) drug therapy; Z90.710 Acquired absence of both cervix and uterus
CPT/HCPCS: 36415; 36416; 70450; 71045; 80053; 82140; 82550; 83690; 83735; 83880; 84443; 84484; 85025; 90935; 93005; 96374; 96376; G0257; G0378; J1815; J2405; U0003; U0005

== ENCOUNTER 2022-04-02 06:26 | Observation (INO) | payer MEDICARE, OTHER ==
[2022-04-02 07:15] LABS: #Eosinphils 0.3 thou/uL (0.0-0.7); #Lymphocytes 1.3 thou/uL (1.20-3.40); #Monocytes 0.4 thou/uL (0.11-0.59); #Neutrophils 1.8 thou/uL (1.40-6.50); %Basophils 0.8 % (0.0-1.0); %Eosinophils 7.7 % (0.0-10.0); %Lymphocytes 33.2 % (21.0-51.0); %Monocytes 9.9 % (0.0-10.0); %Neutrophils 48.4 % (42.0-75.0); Hemoglobin 11.2 g/dL (12.0-16.0); Mean Corpuscular HGB CONC 33.2 g/dL (32.0-36.0); Mean Corpuscular Hemoglobin 33.1 pg (27.0-31.0); Mean Corpuscular Volume 99.8 fL (78.0-98.0); Mean Platelet Volume 7.9 fL (7.4-10.4); Platelet Count 119 thou/uL (130-400); RBC Distribution Width 12.9 % (11.5-14.5); Red Blood Cell (RBC) Count 3.39 mill/uL (4.20-5.40); White Blood Cell (WBC) Count 3.8 thou/uL (4.8-10.8)
[2022-04-02 07:24] LABS: ALT (SGPT) 15 U/L (8-55); AST (SGOT) 26 U/L (5-34); Albumin 3.2 g/dL (3.4-4.8); Alkaline Phosphatase 140 U/L (40-110); Anion Gap 19 mmol/L (10-20); BUN (Urea Nitrogen) 48 mg/dL (9.8-20.1); Bilirubin, Total 0.5 mg/dL (0.2-1.2); Calc. Creatinine Clearance 0 mL/min (70-130); Calcium 8.6 mg/dL (7.8-10.44); Carbon Dioxide 21 mmol/L (23-31); Chloride 105 mmol/L (98-107); Estimated GFR 5; Globulin 3.1 g/dL (2.4-3.5); Glucose 106 mg/dL (83-110); Potassium 4.3 mmol/L (3.5-5.1); Protein, Total 6.3 g/dL (5.8-8.1); Sodium 141 mmol/L (136-145)
[2022-04-02 08:22] LABS: Acetaminophen Less than 10.0 mcg/mL (10.0-30.0); Alcohol Less than 10 mg/dL (Less than 10); Salicylate Less than 8.0 mg/dL (15.0-30.0)
[2022-04-02 11:38] LABS: Bacteria/HPF 4+ HPF (None Seen); Bilirubin Negative (Negative); Blood, Urine Negative (Negative); Clarity Turbid (Clear); Glucose, Urine (Dipstick) Normal (Negative); Ketone, Urine Negative (Negative); Leukocyte 500 Leu/uL (Negative); Nitrite Negative (Negative); Protein, Urine (Dipstick) 50 mg/dL (Neg-Trace); RBC/HPF 0-3 HPF (0-3); Specific Gravity, Urine 1.012 (1.002-1.036); Urobilinogen Normal mg/dL (Less than 2); WBC/HPF Greater than 50 HPF (0-3); pH, Urine 7.5 (5.0-9.0)
[2022-04-02 11:45] LABS: Amphetamine Not Detected (NotDetected); Barbiturates Screen Not Detected (NotDetected); Benzodiazepine Screen Not Detected (NotDetected); Cocaine Metabolite Screen Not Detected (NotDetected); Methadone Not Detected (NotDetected); Methamphetamine Not Detected (NotDetected); Opiate Screen Not Detected (NotDetected); Oxycodone Screen Not Detected (NotDetected); Phencyclidine (PCP) Not Detected (NotDetected); THC/Cannabinoid Screen Not Detected (NotDetected); Tricyclic Screen Not Detected (NotDetected)
[2022-04-02 12:52] VITALS: BMI 29.8
[2022-04-02] MEDS: Rifaximin 550 MG TAB PO SCH ×2 (13:17→20:10)
[2022-04-02] MEDS: Heparin 5,000 UNITS/ML VIAL SC SCH ×2 (14:21→20:11)
[2022-04-03] MEDS: Heparin 5,000 UNITS/ML VIAL SC SCH ×3 (08:26→20:18)
[2022-04-03] MEDS: Ascorbic Acid 500 mg Chewable Tablet PO SCH (08:27)
[2022-04-03] MEDS: Aspirin 81 mg Enteric Coated Tablet PO SCH (08:27)
[2022-04-03] MEDS: Insulin Glargine 30 UNITS/0.3 ML VIAL SC SCH (08:27)
[2022-04-03] MEDS: Cholecalciferol 1,000 UNITS (25 MCG) TAB PO SCH (08:27)
[2022-04-03] MEDS: Rifaximin 550 MG TAB PO SCH ×2 (08:27→20:18)
[2022-04-03] MEDS: Amlodipine 5 MG TAB PO SCH (08:27)
[2022-04-03] MEDS ORDERED: Non-Formulary Item 1 EACH (Levothyroxine Sodium [Levothyroxine] 88 MCG Capsule) PO SCH (09:00)
[2022-04-03] MEDS ORDERED: FLU VACC QS2022-23(65YR UP)/PF 240 MCG/0.7 ML SYRINGE IM ONE (09:00)
[2022-04-03] MEDS ORDERED: Cholecalciferol 1,000 UNITS (25 MCG) TAB PO SCH (09:00)
[2022-04-03] MEDS ORDERED: Non-Formulary Item 1 EACH (Insulin Detemir [Levemir Flextouch] 100 UNIT/ML Insuln.Pen) SQ SCH (09:00)
[2022-04-03 09:47] LABS: HBSAg Index 0.35 S/CO (0-0.99); Hep B Surf Ag Non-Reactive S/CO (NonReactive)
[2022-04-04] MEDS ORDERED: Levothyroxine Sodium 88 MCG TAB PO SCH (06:00)
[2022-04-04 08:11] VITALS: TEMP 98.3
[2022-04-04 08:12] LABS: Anion Gap 15 mmol/L (10-20); BUN (Urea Nitrogen) 21 mg/dL (9.8-20.1); Calc. Creatinine Clearance 11 mL/min (70-130); Carbon Dioxide 26 mmol/L (23-31); Chloride 101 mmol/L (98-107); Potassium 3.9 mmol/L (3.5-5.1); Sodium 138 mmol/L (136-145)
[2022-04-04 08:13] LABS: Calcium 8.2 mg/dL (7.8-10.44); Estimated GFR 9; Glucose 88 mg/dL (83-110)
[2022-04-04] MEDS: Ascorbic Acid 500 mg Chewable Tablet PO SCH (08:26)
[2022-04-04] MEDS: Rifaximin 550 MG TAB PO SCH (08:26)
[2022-04-04] MEDS: Amlodipine 5 MG TAB PO SCH (08:26)
[2022-04-04] MEDS: Heparin 5,000 UNITS/ML VIAL SC SCH (08:27)
[2022-04-04] MEDS: Insulin Glargine 30 UNITS/0.3 ML VIAL SC SCH (08:27)
[2022-04-04] MEDS: Aspirin 81 mg Enteric Coated Tablet PO SCH (08:27)
[2022-04-04] MEDS: Cholecalciferol 1,000 UNITS (25 MCG) TAB PO SCH (08:27)
[2022-04-04 12:55] VITALS: BP 122/56
== END 2022-04-04 14:28 | disposition home or self-care (01) ==
LOC: ERS 06:26 → T4-B 12:39
PROVIDERS: ADMIT Internal Medicine; ATTEND Internal Medicine
DX: K76.82 Hepatic encephalopathy (principal); K72.00 Acute and subacute hepatic failure without coma; K74.60 Unspecified cirrhosis of liver; K76.6 Portal hypertension; K76.7 Hepatorenal syndrome; E11.22 Type 2 diabetes mellitus with diabetic chronic kidney disease; N18.6 End stage renal disease; D63.1 Anemia in chronic kidney disease; J44.9 Chronic obstructive pulmonary disease, unspecified; I25.10 Atherosclerotic heart disease of native coronary artery without angina pectoris; D61.818 Other pancytopenia; I10 Essential (primary) hypertension; E78.5 Hyperlipidemia, unspecified; E03.9 Hypothyroidism, unspecified; Z79.4 Long term (current) use of insulin; Z79.620 Long term (current) use of immunosuppressive biologic; Z79.82 Long term (current) use of aspirin; Z79.890 Hormone replacement therapy; Z79.899 Other long term (current) drug therapy; Z88.1 Allergy status to other antibiotic agents; Z88.5 Allergy status to narcotic agent; Z88.6 Allergy status to analgesic agent; Z99.2 Dependence on renal dialysis; Z20.822 Contact with and (suspected) exposure to COVID-19
CPT/HCPCS: 70450; 71045; 80048; 80053; 80306; 80307; 82140 ×3; 82962 ×3; 84484; 85025; 87340; 93005; 96372 ×3; 99285; G0378 ×4; U0003; U0005; 36415; 36416; 81003; 81015; 90935; G0257; J1644; J1815

== ENCOUNTER 2022-05-18 11:43 | Inpatient (IN) | payer OTHER ==
[2022-05-18 12:30] LABS: #Basophils 0.1 thou/uL (0.0-0.2); #Eosinphils 0.2 thou/uL (0.0-0.7); #Lymphocytes 1.7 thou/uL (1.20-3.40); #Monocytes 0.6 thou/uL (0.11-0.59); #Neutrophils 3.1 thou/uL (1.40-6.50); %Eosinophils 3.3 % (0.0-10.0); %Monocytes 9.9 % (0.0-10.0); %Neutrophils 55.8 % (42.0-75.0); Hemoglobin 9.8 g/dL (12.0-16.0); Mean Corpuscular HGB CONC 33.4 g/dL (32.0-36.0); Mean Corpuscular Hemoglobin 34.1 pg (27.0-31.0); Platelet Count 131 10x3/uL (130-400); RBC Distribution Width 13.3 % (11.5-14.5); Red Blood Cell (RBC) Count 2.88 mill/uL (4.20-5.40); White Blood Cell (WBC) Count 5.6 10x3/uL (4.8-10.8)
[2022-05-18 12:51] LABS: ALT (SGPT) 23 U/L (8-55); AST (SGOT) 29 U/L (5-34); Albumin 3.5 g/dL (3.4-4.8); Alkaline Phosphatase 133 U/L (40-110); Anion Gap 18 mmol/L (10-20); BUN (Urea Nitrogen) 55 mg/dL (9.8-20.1); Bilirubin, Total 0.7 mg/dL (0.2-1.2); Calc. Creatinine Clearance 0 mL/min (70-130); Calcium 8.4 mg/dL (7.8-10.44); Carbon Dioxide 26 mmol/L (23-31); Chloride 104 mmol/L (98-107); Estimated GFR 5; Globulin 3.1 g/dL (2.4-3.5); Glucose 154 mg/dL (83-110); Potassium 4.7 mmol/L (3.5-5.1); Protein, Total 6.6 g/dL (5.8-8.1); Sodium 143 mmol/L (136-145)
[2022-05-18] MEDS ORDERED: LORazepam 2 MG/ML SYR.(CARPUJECT) ONE ×2 (16:09→16:57)
[2022-05-18] MEDS ORDERED: Lorazepam 2 MG/ML VIAL SLOW IVP SCH (16:15)
[2022-05-18 22:22] VITALS: BMI 27.4
[2022-05-18] MEDS: Rifaximin 550 MG TAB PO SCH (23:50)
[2022-05-18] MEDS: Heparin 5,000 UNITS/ML VIAL SC SCH (23:50)
[2022-05-19 04:56] LABS: #Eosinphils 0.1 thou/uL (0.0-0.7); #Lymphocytes 1.2 thou/uL (1.20-3.40); #Monocytes 0.9 thou/uL (0.11-0.59); #Neutrophils 3.6 thou/uL (1.40-6.50); %Basophils 0.7 % (0.0-1.0); %Eosinophils 2.4 % (0.0-10.0); %Lymphocytes 20.5 % (21.0-51.0); %Monocytes 14.9 % (0.0-10.0); %Neutrophils 61.5 % (42.0-75.0); Hemoglobin 9.9 g/dL (12.0-16.0); Mean Corpuscular HGB CONC 32.2 g/dL (32.0-36.0); Mean Platelet Volume 8.5 fL (7.4-10.4); Platelet Count 122 10x3/uL (130-400); RBC Distribution Width 13.3 % (11.5-14.5); White Blood Cell (WBC) Count 5.8 10x3/uL (4.8-10.8)
[2022-05-19 05:31] LABS: Anion Gap 13 mmol/L (10-20); BUN (Urea Nitrogen) 22 mg/dL (9.8-20.1); Calc. Creatinine Clearance 11 mL/min (70-130); Carbon Dioxide 28 mmol/L (23-31); Chloride 100 mmol/L (98-107); Potassium 4.2 mmol/L (3.5-5.1); Sodium 137 mmol/L (136-145)
[2022-05-19 05:32] LABS: ALT (SGPT) 23 U/L (8-55); AST (SGOT) 35 U/L (5-34); Albumin 3.2 g/dL (3.4-4.8); Alkaline Phosphatase 115 U/L (40-110); Bilirubin, Total 0.8 mg/dL (0.2-1.2); Calcium 8.5 mg/dL (7.8-10.44); Estimated GFR 11; Globulin 3.1 g/dL (2.4-3.5); Glucose 100 mg/dL (83-110); Protein, Total 6.3 g/dL (5.8-8.1)
[2022-05-19] MEDS: Levothyroxine Sodium 88 MCG TAB PO SCH (06:15)
[2022-05-19] MEDS: Rifaximin 550 MG TAB PO SCH ×2 (10:11→23:26)
[2022-05-19] MEDS: Heparin 5,000 UNITS/ML VIAL SC SCH ×3 (10:11→21:15)
[2022-05-19] MEDS: Amlodipine 5 MG TAB PO SCH (10:12)
[2022-05-19] MEDS ORDERED: Pantoprazole 40 MG VIAL IVP SCH (13:15)
[2022-05-19 15:47] LABS: HBSAB Concentration Less than 8.00 mIU/mL; HBSAg Index 0.29 S/CO (0-0.99); Hep B Core Total Ab Non-Reactive (NonReactive); Hep B Core Total Index 0.09 S/CO (0-0.79); Hep B Surf AB Non-Reactive (NonReactive); Hep B Surf Ag Non-Reactive S/CO (NonReactive); Hep C IgG Ab Non-Reactive (NonReactive); Hep C Index 0.13 S/CO (0-0.79)
[2022-05-19] MEDS ORDERED: Sodium Chloride 0.9% 1,000 ML IV SCH (19:45)
[2022-05-20 04:52] LABS: #Eosinphils 0.3 thou/uL (0.0-0.7); #Lymphocytes 1.7 thou/uL (1.20-3.40); #Monocytes 0.6 thou/uL (0.11-0.59); #Neutrophils 2.8 thou/uL (1.40-6.50); %Basophils 0.7 % (0.0-1.0); %Eosinophils 4.7 % (0.0-10.0); %Lymphocytes 31.3 % (21.0-51.0); %Monocytes 10.6 % (0.0-10.0); %Neutrophils 52.6 % (42.0-75.0); Hemoglobin 10.2 g/dL (12.0-16.0); Mean Corpuscular HGB CONC 33.7 g/dL (32.0-36.0); Mean Corpuscular Hemoglobin 34.5 pg (27.0-31.0); Platelet Count 135 10x3/uL (130-400); Red Blood Cell (RBC) Count 2.97 mill/uL (4.20-5.40); White Blood Cell (WBC) Count 5.3 10x3/uL (4.8-10.8)
[2022-05-20] MEDS: Levothyroxine Sodium 88 MCG TAB PO SCH (05:19)
[2022-05-20 05:20] LABS: ALT (SGPT) 20 U/L (8-55); AST (SGOT) 45 U/L (5-34); Alkaline Phosphatase 99 U/L (40-110); Anion Gap 16 mmol/L (10-20); BUN (Urea Nitrogen) 36 mg/dL (9.8-20.1); Bilirubin, Total 0.9 mg/dL (0.2-1.2); Calc. Creatinine Clearance 8 mL/min (70-130); Calcium 8.1 mg/dL (7.8-10.44); Carbon Dioxide 28 mmol/L (23-31); Chloride 101 mmol/L (98-107); Estimated GFR 8; Globulin 3.2 g/dL (2.4-3.5); Glucose 79 mg/dL (83-110); Potassium 4.5 mmol/L (3.5-5.1); Protein, Total 6.2 g/dL (5.8-8.1); Sodium 140 mmol/L (136-145)
[2022-05-20] MEDS: Rifaximin 550 MG TAB PO SCH ×2 (08:42→20:46)
[2022-05-20] MEDS: Pantoprazole 40 MG VIAL IVP SCH (08:43)
[2022-05-20] MEDS: Heparin 5,000 UNITS/ML VIAL SC SCH ×3 (08:51→20:45)
[2022-05-20] MEDS: Amlodipine 5 MG TAB PO SCH (09:28)
[2022-05-21 05:26] LABS: ALT (SGPT) 18 U/L (8-55); AST (SGOT) 31 U/L (5-34); Alkaline Phosphatase 99 U/L (40-110); Anion Gap 15 mmol/L (10-20); BUN (Urea Nitrogen) 22 mg/dL (9.8-20.1); Bilirubin, Total 0.8 mg/dL (0.2-1.2); Calc. Creatinine Clearance 10 mL/min (70-130); Carbon Dioxide 26 mmol/L (23-31); Chloride 102 mmol/L (98-107); Estimated GFR 10; Globulin 3.2 g/dL (2.4-3.5); Glucose 103 mg/dL (83-110); Potassium 3.7 mmol/L (3.5-5.1); Protein, Total 6.2 g/dL (5.8-8.1); Sodium 139 mmol/L (136-145)
[2022-05-21] MEDS: Levothyroxine Sodium 88 MCG TAB PO SCH (05:29)
[2022-05-21] MEDS ORDERED: FLU VACC QS2022-23(65YR UP)/PF 240 MCG/0.7 ML SYRINGE IM ONE (09:00)
[2022-05-21] MEDS: Cholecalciferol 1,000 UNITS (25 MCG) TAB PO SCH (09:53)
[2022-05-21] MEDS: Amlodipine 5 MG TAB PO SCH (09:53)
[2022-05-21] MEDS: Heparin 5,000 UNITS/ML VIAL SC SCH ×3 (09:53→20:59)
[2022-05-21] MEDS: Aspirin 81 mg Enteric Coated Tablet PO SCH (09:54)
[2022-05-21] MEDS: Ascorbic Acid 500 mg Chewable Tablet PO SCH (09:54)
[2022-05-21] MEDS: Pantoprazole 40 MG VIAL IVP SCH (09:54)
[2022-05-21] MEDS: Rifaximin 550 MG TAB PO SCH ×2 (10:04→20:56)
[2022-05-22] MEDS: Levothyroxine Sodium 88 MCG TAB PO SCH (05:35)
[2022-05-22] MEDS: Rifaximin 550 MG TAB PO SCH (10:06)
[2022-05-22] MEDS: Amlodipine 5 MG TAB PO SCH (10:06)
[2022-05-22] MEDS: Heparin 5,000 UNITS/ML VIAL SC SCH ×2 (10:06→16:02)
[2022-05-22] MEDS: Aspirin 81 mg Enteric Coated Tablet PO SCH (10:06)
[2022-05-22] MEDS: Ascorbic Acid 500 mg Chewable Tablet PO SCH (10:06)
[2022-05-22] MEDS: Cholecalciferol 1,000 UNITS (25 MCG) TAB PO SCH (10:06)
[2022-05-22 16:22] VITALS: BP 146/60; TEMP 97.8
== END 2022-05-22 17:19 | disposition home health service (06) | DRG 441 ==
LOC: ERS 11:43 → 2NO 13:50
PROVIDERS: ADMIT Family Medicine; ATTEND Family Medicine
PROC: 5A1D70Z Performance of Urinary Filtration, Intermittent, Less than 6 Hours Per Day (ICD-10-PCS; principal; 2022-05-18)
DX: K76.82 Hepatic encephalopathy (principal); Z66 Do not resuscitate; Z20.822 Contact with and (suspected) exposure to COVID-19; G93.41 Metabolic encephalopathy; N18.6 End stage renal disease; E72.20 Disorder of urea cycle metabolism, unspecified; K74.60 Unspecified cirrhosis of liver; E03.9 Hypothyroidism, unspecified; D63.1 Anemia in chronic kidney disease; M25.562 Pain in left knee; E11.22 Type 2 diabetes mellitus with diabetic chronic kidney disease; K75.81 Nonalcoholic steatohepatitis (NASH); I10 Essential (primary) hypertension; Z99.2 Dependence on renal dialysis; Z88.1 Allergy status to other antibiotic agents; Z91.199 Patient's noncompliance with other medical treatment and regimen due to unspecified reason; Z88.5 Allergy status to narcotic agent; Z88.8 Allergy status to other drugs, medicaments and biological substances; Z79.899 Other long term (current) drug therapy; Z79.82 Long term (current) use of aspirin; Z79.4 Long term (current) use of insulin; Z79.890 Hormone replacement therapy
CPT/HCPCS: 36415; 36416; 71045; 80053; 82140; 84484; 85025; 86704; 87340; 90935; 93005; 96374; 97139; C9113; G0257; J1644; U0003; U0005

== ENCOUNTER 2023-11-18 14:10 | Inpatient (IN) | payer OTHER ==
[2023-11-18 15:19] LABS: #Basophils 0.03 10x3/uL (0.0-0.2); %Basophils 0.8 % (0.0-1.0); %Eosinophils 1.5 % (0.0-10.0); %Lymphocytes 14.2 % (21.0-51.0); %Monocytes 8.1 % (0.0-10.0); %Neutrophils 75.1 % (42.0-75.0); Hematocrit 44.3 % (36.0-47.0); Hemoglobin 13.8 g/dL (12.0-16.0); Mean Corpuscular HGB CONC 31.2 g/dL (32.0-36.0); Mean Corpuscular Hemoglobin 29.6 pg (27.0-31.0); Mean Corpuscular Volume 94.9 fL (78.0-98.0); Mean Platelet Volume 12.1 fL (7.4-10.4); Platelet Count 137 10x3/uL (130-400); Red Blood Cell (RBC) Count 4.67 mill/uL (4.20-5.40)
[2023-11-18] MEDS ORDERED: dilTIAZem 25 MG/5 ML VIAL ONE (15:24)
[2023-11-18] MEDS ORDERED: dilTIAZem 125 MG/25 ML SDV ONE (15:31)
[2023-11-18 15:45] LABS: Troponin I 0.318 ng/mL (< 0.028)
[2023-11-18 15:48] LABS: ALT (SGPT) 25 U/L (8-55); AST (SGOT) 46 U/L (5-34); Albumin 3.1 g/dL (3.4-4.8); Alkaline Phosphatase 157 U/L (40-110); Anion Gap 18 mmol/L (10-20); BUN (Urea Nitrogen) 25 mg/dL (9.8-20.1); Bilirubin, Total 0.9 mg/dL (0.2-1.2); Calc. Creatinine Clearance 0 mL/min (70-130); Calcium 9.2 mg/dL (7.8-10.44); Carbon Dioxide 25 mmol/L (23-31); Chloride 101 mmol/L (98-107); Estimated GFR 8; Glucose 93 mg/dL (83-110); Magnesium 2.3 mg/dL (1.6-2.6); Potassium 3.8 mmol/L (3.5-5.1); Protein, Total 7.1 g/dL (5.8-8.1); Sodium 140 mmol/L (136-145)
[2023-11-18] MEDS ORDERED: Dextrose 50% Abboject 50 ML SYRINGE SLOW IVP PRN (16:55)
[2023-11-18] MEDS ORDERED: Acetaminophen 325 MG TAB PO PRN (16:55)
[2023-11-18] MEDS ORDERED: HumaLOG 300 UNITS/3 ML VIAL SC PRN (16:55)
[2023-11-18] MEDS ORDERED: Glucagon 1 MG/ML KIT IM PRN (16:55)
[2023-11-18] MEDS ORDERED: Ondansetron PF 4 MG/2 ML Vial IVP PRN (16:55)
[2023-11-18] MEDS ORDERED: Dextrose 5% in Water 1,000 ML IV PRN (16:55)
[2023-11-18] MEDS ORDERED: dilTIAZem 125 MG in Sodium Chloride 0.9% 100 ML IVPB SCH (17:00)
[2023-11-18 20:13] VITALS: BMI 25.2
[2023-11-18 20:47] LABS: Critical Call Chem Troponin I RESULT DECREASING; Troponin I 0.259 ng/mL (< 0.028)
[2023-11-18] MEDS: Apixaban 2.5 MG TAB PO SCH (21:08)
[2023-11-18] MEDS: Lactulose 20 GM (30 mL) UDCUP PO SCH (21:08)
[2023-11-18] MEDS: Rifaximin 550 MG TAB PO SCH (21:17)
[2023-11-19 05:07] LABS: #Basophils 0.03 10x3/uL (0.0-0.2); %Basophils 0.8 % (0.0-1.0); %Eosinophils 3.1 % (0.0-10.0); %Lymphocytes 17.5 % (21.0-51.0); %Monocytes 12.9 % (0.0-10.0); %Neutrophils 65.4 % (42.0-75.0); Hematocrit 39.1 % (36.0-47.0); Hemoglobin 12.3 g/dL (12.0-16.0); Mean Corpuscular HGB CONC 31.5 g/dL (32.0-36.0); Mean Corpuscular Hemoglobin 30.4 pg (27.0-31.0); Mean Corpuscular Volume 96.5 fL (78.0-98.0); Platelet Count 72 10x3/uL (130-400); RBC Distribution Width 19.7 % (11.5-14.5); Red Blood Cell (RBC) Count 4.05 mill/uL (4.20-5.40)
[2023-11-19 05:11] LABS: Anion Gap 17 mmol/L (10-20); BUN (Urea Nitrogen) 30 mg/dL (9.8-20.1); Calc. Creatinine Clearance 7 mL/min (70-130); Calcium 9.2 mg/dL (7.8-10.44); Carbon Dioxide 28 mmol/L (23-31); Chloride 99 mmol/L (98-107); Estimated GFR 7; Glucose 93 mg/dL (83-110); Potassium 4.3 mmol/L (3.5-5.1); Sodium 140 mmol/L (136-145)
[2023-11-19] MEDS: Levothyroxine Sodium 75 MCG TAB PO SCH (06:19)
[2023-11-19] MEDS: Pantoprazole DR 40 MG TAB PO SCH (09:01)
[2023-11-19] MEDS: Aspirin 81 mg Enteric Coated Tablet PO SCH (09:01)
[2023-11-19 11:22] LABS: Hep C Index 0.15 S/CO (0-0.79)
[2023-11-19 11:53] LABS: Hep B Core Total Ab NONREACTIVE (NonReactive); Hep B Core Total Index 0.13 S/CO (0-0.79)
[2023-11-19 11:57] LABS: HBSAB Concentration Less than 8.00 mIU/mL; HBsAg Index 0.26 S/CO (0-0.99); Hep B Surf AB NONREACTIVE (NonReactive); Hep B Surf Ag NONREACTIVE S/CO (NonReactive); Hep C IgG Ab NONREACTIVE S/CO (NonReactive)
[2023-11-19] MEDS: Metoprolol Tartrate 25 MG TAB PO SCH (21:29)
[2023-11-20 04:42] LABS: #Basophils 0.04 10x3/uL (0.0-0.2); %Eosinophils 3.9 % (0.0-10.0); %Lymphocytes 17.1 % (21.0-51.0); %Monocytes 12.5 % (0.0-10.0); %Neutrophils 65.2 % (42.0-75.0); Hematocrit 38.5 % (36.0-47.0); Hemoglobin 12.2 g/dL (12.0-16.0); Mean Corpuscular HGB CONC 31.7 g/dL (32.0-36.0); Mean Corpuscular Hemoglobin 29.8 pg (27.0-31.0); Mean Corpuscular Volume 94.1 fL (78.0-98.0); Mean Platelet Volume 10.9 fL (7.4-10.4); Platelet Count 68 10x3/uL (130-400); RBC Distribution Width 20.1 % (11.5-14.5); Red Blood Cell (RBC) Count 4.09 mill/uL (4.20-5.40)
[2023-11-20 05:08] LABS: Anion Gap 16 mmol/L (10-20); BUN (Urea Nitrogen) 15 mg/dL (9.8-20.1); Calc. Creatinine Clearance 10 mL/min (70-130); Calcium 8.7 mg/dL (7.8-10.44); Carbon Dioxide 24 mmol/L (23-31); Chloride 102 mmol/L (98-107); Estimated GFR 11; Glucose 94 mg/dL (83-110); Sodium 138 mmol/L (136-145)
[2023-11-21 06:27] LABS: #Basophils 0.04 10x3/uL (0.0-0.2); %Basophils 0.9 % (0.0-1.0); %Eosinophils 4.4 % (0.0-10.0); %Lymphocytes 16.7 % (21.0-51.0); %Monocytes 12.3 % (0.0-10.0); %Neutrophils 65.5 % (42.0-75.0); Hematocrit 40.3 % (36.0-47.0); Hemoglobin 12.7 g/dL (12.0-16.0); Mean Corpuscular HGB CONC 31.5 g/dL (32.0-36.0); Mean Corpuscular Hemoglobin 30.2 pg (27.0-31.0); Mean Platelet Volume 10.4 fL (7.4-10.4); Platelet Count 72 10x3/uL (130-400); RBC Distribution Width 19.9 % (11.5-14.5)
[2023-11-21 06:52] LABS: Anion Gap 19 mmol/L (10-20); BUN (Urea Nitrogen) 22 mg/dL (9.8-20.1); Calc. Creatinine Clearance 7 mL/min (70-130); Calcium 8.9 mg/dL (7.8-10.44); Carbon Dioxide 19 mmol/L (23-31); Chloride 103 mmol/L (98-107); Estimated GFR 7; Glucose 92 mg/dL (83-110); Sodium 137 mmol/L (136-145)
[2023-11-21 09:51] VITALS: TEMP 97.5
[2023-11-21 12:17] VITALS: BP 129/53
== END 2023-11-21 15:27 | disposition home or self-care (01) | DRG 280 ==
LOC: ERS 14:10 → OBSVTOIN 16:57 → MERGE 16:57 → 2NO 16:57
PROVIDERS: ADMIT Internal Medicine; ATTEND Internal Medicine
DX: I48.91 Unspecified atrial fibrillation (principal); N18.6 End stage renal disease; I21.A1 Myocardial infarction type 2; G93.49 Other encephalopathy; I50.20 Unspecified systolic (congestive) heart failure; I13.2 Hypertensive heart and chronic kidney disease with heart failure and with stage 5 chronic kidney disease, or end stage renal disease; Z88.8 Allergy status to other drugs, medicaments and biological substances; I25.2 Old myocardial infarction; E03.9 Hypothyroidism, unspecified; I25.10 Atherosclerotic heart disease of native coronary artery without angina pectoris; E11.22 Type 2 diabetes mellitus with diabetic chronic kidney disease; E78.5 Hyperlipidemia, unspecified; D63.1 Anemia in chronic kidney disease; Z83.3 Family history of diabetes mellitus; K74.60 Unspecified cirrhosis of liver; Z90.710 Acquired absence of both cervix and uterus; Z95.1 Presence of aortocoronary bypass graft; Z79.82 Long term (current) use of aspirin; Z79.899 Other long term (current) drug therapy; Z99.2 Dependence on renal dialysis
CPT/HCPCS: 36415; 36416; 71045; 80048; 80053; 83735; 83880; 84439; 84443; 84484; 85025; 86704; 86706; 86803; 87340; 93005; 93306

== ENCOUNTER 2023-12-13 17:47 | Observation (INO) | payer OTHER ==
[2023-12-13 18:40] LABS: #Basophils 0.03 10x3/uL (0.0-0.2); %Basophils 0.7 % (0.0-1.0); %Eosinophils 1.9 % (0.0-10.0); %Lymphocytes 16.7 % (21.0-51.0); %Monocytes 11.3 % (0.0-10.0); %Neutrophils 69.2 % (42.0-75.0); Hematocrit 44.1 % (36.0-47.0); Mean Corpuscular HGB CONC 31.7 g/dL (32.0-36.0); Mean Corpuscular Hemoglobin 31.3 pg (27.0-31.0); Mean Corpuscular Volume 98.4 fL (78.0-98.0); Mean Platelet Volume 10.6 fL (7.4-10.4); Platelet Count 73 10x3/uL (130-400); RBC Distribution Width 19.4 % (11.5-14.5); Red Blood Cell (RBC) Count 4.48 mill/uL (4.20-5.40)
[2023-12-13 18:46] LABS: ALT (SGPT) 23 U/L (8-55); AST (SGOT) 40 U/L (5-34); Albumin 2.9 g/dL (3.4-4.8); Alkaline Phosphatase 145 U/L (40-110); Anion Gap 22 mmol/L (10-20); BUN (Urea Nitrogen) 43 mg/dL (9.8-20.1); Bilirubin, Total 0.8 mg/dL (0.2-1.2); Calc. Creatinine Clearance 0 mL/min (70-130); Calcium 9.6 mg/dL (7.8-10.44); Carbon Dioxide 20 mmol/L (23-31); Chloride 106 mmol/L (98-107); Estimated GFR 4; Globulin 4.4 g/dL (2.4-3.5); Glucose 168 mg/dL (83-110); Potassium 4.7 mmol/L (3.5-5.1); Protein, Total 7.3 g/dL (5.8-8.1); Sodium 143 mmol/L (136-145)
[2023-12-13 18:48] LABS: Lipase 7 U/L (8-78); Magnesium 2.7 mg/dL (1.6-2.6)
[2023-12-13 18:49] LABS: Acetaminophen Less than 10 mcg/mL (10.0-30.0); Alcohol Less than 10.0 mg/dL (Less than 10); Salicylate Less than 8.0 mg/dL (15.0-30.0)
[2023-12-13] MEDS ORDERED: HumaLOG 300 UNITS/3 ML VIAL SC PRN (19:42)
[2023-12-13] MEDS ORDERED: Acetaminophen 325 MG TAB PO PRN (19:42)
[2023-12-13] MEDS ORDERED: Acetaminophen 650 MG Suppository PR PRN (19:42)
[2023-12-13] MEDS ORDERED: Dextrose 50% Abboject 50 ML SYRINGE SLOW IVP PRN (19:42)
[2023-12-13] MEDS ORDERED: Glucagon 1 MG/ML KIT IM PRN (19:42)
[2023-12-13] MEDS ORDERED: Dextrose 5% in Water 1,000 ML IV PRN (19:42)
[2023-12-13] MEDS ORDERED: Ondansetron ODT 4 MG TAB SL PRN (19:45)
[2023-12-13] MEDS ORDERED: Ondansetron PF 4 MG/2 ML Vial IVP PRN (19:45)
[2023-12-13] MEDS ORDERED: Lactulose 20 GM (30 mL) UDCUP ONE (19:51)
[2023-12-13] MEDS: Lactulose 20 GM (30 mL) UDCUP PO SCH (21:49)
[2023-12-13] MEDS: Apixaban 2.5 MG TAB PO SCH (21:56)
[2023-12-13 22:02] VITALS: TEMP 97.7
[2023-12-13 22:04] VITALS: BMI 22.6
[2023-12-14 09:15] LABS: #Basophils 0.04 10x3/uL (0.0-0.2); %Basophils 0.9 % (0.0-1.0); %Lymphocytes 20.9 % (21.0-51.0); %Monocytes 10.9 % (0.0-10.0); %Neutrophils 64.3 % (42.0-75.0); Hematocrit 44.6 % (36.0-47.0); Hemoglobin 14.2 g/dL (12.0-16.0); Mean Corpuscular HGB CONC 31.8 g/dL (32.0-36.0); Mean Corpuscular Hemoglobin 30.7 pg (27.0-31.0); Mean Corpuscular Volume 96.5 fL (78.0-98.0); Mean Platelet Volume 11.3 fL (7.4-10.4); Platelet Count 70 10x3/uL (130-400); RBC Distribution Width 19.2 % (11.5-14.5); Red Blood Cell (RBC) Count 4.62 mill/uL (4.20-5.40)
[2023-12-14 09:18] LABS: Anion Gap 19 mmol/L (10-20); BUN (Urea Nitrogen) 48 mg/dL (9.8-20.1); Calc. Creatinine Clearance 5 mL/min (70-130); Calcium 9.5 mg/dL (7.8-10.44); Carbon Dioxide 19 mmol/L (23-31); Chloride 107 mmol/L (98-107); Estimated GFR 4; Glucose 106 mg/dL (83-110); Potassium 4.2 mmol/L (3.5-5.1); Sodium 141 mmol/L (136-145)
[2023-12-14] MEDS: Apixaban 2.5 MG TAB PO SCH (09:18)
[2023-12-14] MEDS: HumaLOG 300 UNITS/3 ML VIAL SC PRN (11:51)
[2023-12-14 12:18] VITALS: BP 123/73
[2023-12-14] MEDS: Nystatin Powder 15 GM BOT TOP SCH (12:21)
== END 2023-12-14 13:56 | disposition home or self-care (01) ==
LOC: ERS 17:47 → T4-A 19:33
PROVIDERS: ADMIT Student in an Organized Health Care Education/Training Program; ATTEND Internal Medicine
DX: R41.82 Altered mental status, unspecified (principal); G93.40 Encephalopathy, unspecified; K74.60 Unspecified cirrhosis of liver; I48.91 Unspecified atrial fibrillation; M19.90 Unspecified osteoarthritis, unspecified site; I25.10 Atherosclerotic heart disease of native coronary artery without angina pectoris; G93.41 Metabolic encephalopathy; N18.6 End stage renal disease; E11.22 Type 2 diabetes mellitus with diabetic chronic kidney disease; E87.20 Acidosis, unspecified; Z99.2 Dependence on renal dialysis; Z79.4 Long term (current) use of insulin; Z79.82 Long term (current) use of aspirin; Z79.890 Hormone replacement therapy; Z79.01 Long term (current) use of anticoagulants; Z90.710 Acquired absence of both cervix and uterus; Z88.6 Allergy status to analgesic agent; Z88.1 Allergy status to other antibiotic agents; Z88.5 Allergy status to narcotic agent; Z88.8 Allergy status to other drugs, medicaments and biological substances; Z95.1 Presence of aortocoronary bypass graft; Z79.899 Other long term (current) drug therapy
CPT/HCPCS: 70450; 80048; 80307; 82140; 82962 ×2; 83690; 83735; 85025; 87040; 93005; 99285; G0378 ×3; 36415; 36416; 80053; 84443; J1815

== ENCOUNTER 2023-12-15 16:09 | Inpatient (IN) | payer OTHER ==
[2023-12-15] MEDS ORDERED: Acetaminophen 650 MG Suppository PR PRN (18:04)
[2023-12-15] MEDS ORDERED: Ondansetron ODT 4 MG TAB PO PRN (18:07)
[2023-12-15] MEDS ORDERED: Acetaminophen 325 MG TAB PO SCH (18:15)
[2023-12-15] MEDS ORDERED: Insulin Glargine 30 UNITS/0.3 ML VIAL SC PRN (18:25)
[2023-12-15] MEDS: Metoprolol Tartrate 25 MG TAB PO SCH (20:55)
[2023-12-15] MEDS: Lactulose 20 GM (30 mL) UDCUP PO SCH (20:56)
[2023-12-15] MEDS: Apixaban 2.5 MG TAB PO SCH (20:56)
[2023-12-15] MEDS ORDERED: Famotidine 20 MG TAB PO SCH (21:00)
[2023-12-15] MEDS ORDERED: Lactulose 20 GM (30 mL) UDCUP PO SCH (21:00)
[2023-12-15] MEDS: Rifaximin 550 MG TAB PO SCH (23:16)
[2023-12-16] MEDS ORDERED: Dextrose 50% Abboject 50 ML SYRINGE SLOW IVP PRN (00:52)
[2023-12-16] MEDS ORDERED: Dextrose 5% in Water 1,000 ML IV PRN (00:52)
[2023-12-16] MEDS ORDERED: Glucagon 1 MG/ML KIT IM PRN (00:52)
[2023-12-16 04:30] LABS: Anion Gap 20 mmol/L (10-20); BUN (Urea Nitrogen) 26 mg/dL (9.8-20.1); Calc. Creatinine Clearance 7 mL/min (70-130); Calcium 8.6 mg/dL (7.8-10.44); Carbon Dioxide 22 mmol/L (23-31); Chloride 103 mmol/L (98-107); Estimated GFR 7; Glucose 86 mg/dL (83-110); Potassium 4.7 mmol/L (3.5-5.1); Sodium 140 mmol/L (136-145)
[2023-12-16] MEDS: Lactulose 20 GM (30 mL) UDCUP PO SCH (05:41)
[2023-12-16] MEDS: Aspirin 81 mg Enteric Coated Tablet PO SCH (09:25)
[2023-12-16] MEDS: Cholecalciferol 1,000 UNITS (25 MCG) TAB PO SCH (09:25)
[2023-12-16] MEDS: Levothyroxine Sodium 75 MCG TAB PO SCH (09:25)
[2023-12-16] MEDS: Ferrous Sulfate 325 MG TAB PO SCH (09:26)
[2023-12-16] MEDS: Pantoprazole DR 40 MG TAB PO SCH (09:26)
[2023-12-16 10:45] VITALS: BMI 25.9
[2023-12-16] MEDS: Gabapentin 300 MG CAP PO SCH (21:41)
[2023-12-17 05:00] LABS: Hematocrit 36.2 % (36.0-47.0); Hemoglobin 11.6 g/dL (12.0-16.0); Mean Corpuscular Hemoglobin 30.8 pg (27.0-31.0); Mean Platelet Volume 11.3 fL (7.4-10.4); Platelet Count 75 10x3/uL (130-400); RBC Distribution Width 18.7 % (11.5-14.5); Red Blood Cell (RBC) Count 3.77 mill/uL (4.20-5.40)
[2023-12-17 05:23] LABS: Phosphorus 3.7 mg/dL (2.3-4.7)
[2023-12-17 05:29] LABS: Anion Gap 19 mmol/L (10-20); BUN (Urea Nitrogen) 37 mg/dL (9.8-20.1); Calc. Creatinine Clearance 5 mL/min (70-130); Calcium 8.7 mg/dL (7.8-10.44); Carbon Dioxide 23 mmol/L (23-31); Chloride 103 mmol/L (98-107); Estimated GFR 5; Glucose 103 mg/dL (83-110); Potassium 4.8 mmol/L (3.5-5.1); Sodium 140 mmol/L (136-145)
[2023-12-17 15:34] VITALS: BP 117/56; TEMP 98
== END 2023-12-17 16:30 | disposition home or self-care (01) | DRG 441 ==
LOC: 2NO 16:36 → OBSVTOIN 12-16 13:05
PROVIDERS: ADMIT Internal Medicine; ATTEND Internal Medicine
DX: K76.82 Hepatic encephalopathy (principal); G93.41 Metabolic encephalopathy; N18.6 End stage renal disease; I13.2 Hypertensive heart and chronic kidney disease with heart failure and with stage 5 chronic kidney disease, or end stage renal disease; G93.40 Encephalopathy, unspecified; E87.20 Acidosis, unspecified; K74.60 Unspecified cirrhosis of liver; M19.90 Unspecified osteoarthritis, unspecified site; I48.0 Paroxysmal atrial fibrillation; E11.22 Type 2 diabetes mellitus with diabetic chronic kidney disease; I25.10 Atherosclerotic heart disease of native coronary artery without angina pectoris; Z79.4 Long term (current) use of insulin; Z95.1 Presence of aortocoronary bypass graft; Z79.899 Other long term (current) drug therapy; Z79.890 Hormone replacement therapy; Z55.6 Problems related to health literacy; Z99.2 Dependence on renal dialysis; Z91.148 Patient's other noncompliance with medication regimen for other reason; I48.91 Unspecified atrial fibrillation; I50.9 Heart failure, unspecified; R41.82 Altered mental status, unspecified; Z79.82 Long term (current) use of aspirin; Z79.01 Long term (current) use of anticoagulants; Z90.710 Acquired absence of both cervix and uterus; Z88.6 Allergy status to analgesic agent; Z88.1 Allergy status to other antibiotic agents; Z88.5 Allergy status to narcotic agent; Z88.8 Allergy status to other drugs, medicaments and biological substances
CPT/HCPCS: 36415; 36416; 70450; 80048; 80053; 80307; 82140; 83690; 83735; 84100; 84443; 85025; 85027; 87040; 90935; 93005; 96374; 97139; G0257; G0378; J1815

== ENCOUNTER 2024-02-16 08:21 | Inpatient (IN) | payer OTHER ==
[2024-02-16 10:11] LABS: Actual Bicarbonate (HCO3v) 23.5 mEq/L (22-28); Analyzer IN Cardio ER; Base Excess -0.6 mEq/L (-2.0 to +3.0); Calcium, Ionized (venous) 1.08 mmol/L (1.16-1.32); Chloride (VBG) 104 mmol/L (98-106); Hematocrit-VBG 43 % (36.0-47.0); Hemoglobin (Hb) 14.6 g/dL (11.7-16.1); Potassium (VBG) 5.08 mmol/L (3.70-5.30); Sodium 140 mmol/L (133-146)
[2024-02-16 10:26] LABS: #Basophils 0.05 10x3/uL (0.0-0.2); %Basophils 1.1 % (0.0-1.0); %Eosinophils 2.2 % (0.0-10.0); %Lymphocytes 18.1 % (21.0-51.0); %Monocytes 9.5 % (0.0-10.0); %Neutrophils 68.7 % (42.0-75.0); Hematocrit 42.2 % (36.0-47.0); Hemoglobin 13.4 g/dL (12.0-16.0); Mean Corpuscular HGB CONC 31.8 g/dL (32.0-36.0); Mean Corpuscular Hemoglobin 31.9 pg (27.0-31.0); Mean Corpuscular Volume 100.5 fL (78.0-98.0); Mean Platelet Volume 10.7 fL (7.4-10.4); Platelet Count 86 10x3/uL (130-400); RBC Distribution Width 18.3 % (11.5-14.5)
[2024-02-16 10:29] LABS: SARS-CoV-2 E Target Negative; SARS-CoV-2 N2 Target Negative; SARS-CoV-2 NAA Rapid Test Not Detected (NotDetected); SARS-CoV-2 RdRP gene Negative
[2024-02-16 10:34] LABS: INR-International Normal Ratio 1.4; PTT 37.3 sec (22.9-36.1); Prothrombin Time 17.4 sec (12.0-14.7)
[2024-02-16 10:36] LABS: Bilirubin Negative (Negative); Blood, Urine Moderate (Negative); Glucose, Urine (Dipstick) Negative (Negative); Ketone, Urine Trace mg/dL (Negative); Leukocyte Large (Negative); Nitrite Negative (Negative); Protein, Urine (Dipstick) 100 mg/dL (Neg-Trace); Specific Gravity, Urine 1.025 (1.005-1.030); Urobilinogen 0.2 mg/dL (Less than 2)
[2024-02-16 10:38] LABS: ALT (SGPT) 21 U/L (8-55); AST (SGOT) 34 U/L (5-34); Albumin 2.5 g/dL (3.4-4.8); Alkaline Phosphatase 166 U/L (40-110); Anion Gap 18 mmol/L (10-20); BUN (Urea Nitrogen) 40 mg/dL (9.8-20.1); Bilirubin, Total 1.1 mg/dL (0.2-1.2); CK (CPK) 26 U/L (29-168); Calc. Creatinine Clearance 0 mL/min (70-130); Calcium 9.3 mg/dL (7.8-10.44); Carbon Dioxide 21 mmol/L (23-31); Chloride 105 mmol/L (98-107); Estimated GFR 5; Globulin 3.8 g/dL (2.4-3.5); Glucose 124 mg/dL (83-110); Lipase 7 U/L (8-78); Magnesium 2.5 mg/dL (1.6-2.6); Potassium 5.2 mmol/L (3.5-5.1); Protein, Total 6.3 g/dL (5.8-8.1); Sodium 139 mmol/L (136-145)
[2024-02-16 10:39] LABS: Acetaminophen Less than 10 mcg/mL (Less than 10); Alcohol Less than 10.0 mg/dL (Less than 10); Salicylate Less than 8.0 mg/dL (Less than 8.0)
[2024-02-16 10:39] LABS: Clarity Extra Turbid (Clear)
[2024-02-16 10:41] LABS: Troponin I 0.053 ng/mL (< 0.028)
[2024-02-16 10:50] LABS: Amphetamine Detected (NotDetected); Barbiturates Screen Not Detected (NotDetected); Benzodiazepine Screen Not Detected (NotDetected); Cocaine Metabolite Screen Not Detected (NotDetected); Methadone Not Detected (NotDetected); Methamphetamine Not Detected (NotDetected); Opiate Screen Not Detected (NotDetected); Oxycodone Screen Not Detected (NotDetected); Phencyclidine (PCP) Not Detected (NotDetected); THC/Cannabinoid Screen Not Detected (NotDetected); Tricyclic Screen Not Detected (NotDetected)
[2024-02-16 11:12] LABS: Bacteria/HPF 4+ HPF (None Seen); CAUTI Indications for Culture Alt mental st,lethar
[2024-02-16] MEDS ORDERED: LevoFLOXacin 750 mg/D5W 150 ml Premix Bag ONE (11:16)
[2024-02-16 11:25] LABS: RBC/HPF 21-50 HPF (0-3); WBC/HPF Greater than 50 HPF (0-3)
[2024-02-16 11:26] LABS: Urine Culture Reflex Yes Yes
[2024-02-16 13:24] LABS: Lactic Acid 2.34 mmol/L (0.5-2.2)
[2024-02-16 13:44] LABS: Troponin I 0.052 ng/mL (< 0.028)
[2024-02-16 13:49] LABS: HBSAB Concentration Less than 8.00 mIU/mL; HBsAg Index 0.67 S/CO (0-0.99); Hep B Core Total Ab NONREACTIVE (NonReactive); Hep B Core Total Index 0.33 S/CO (0-0.79); Hep B Surf AB NONREACTIVE (NonReactive); Hep B Surf Ag NONREACTIVE S/CO (NonReactive); Hep C IgG Ab NONREACTIVE S/CO (NonReactive); Hep C Index 0.11 S/CO (0-0.79)
[2024-02-16] MEDS: Lactulose 10 GM/15 ML Oral Solution PR SCH (14:00)
[2024-02-16] MEDS ORDERED: Glucagon 1 MG/ML KIT IM PRN (14:50)
[2024-02-16] MEDS ORDERED: Bisacodyl 5 MG TAB PO PRN (14:50)
[2024-02-16] MEDS ORDERED: Dextrose 5% in Water 1,000 ML IV PRN (14:50)
[2024-02-16] MEDS ORDERED: Insulin Lispro 100 UNIT/ML 10 ML VIAL SC PRN (14:50)
[2024-02-16 15:14] VITALS: BMI 23.4
[2024-02-16] MEDS ORDERED: Albumin 25% 25 GM (100 mL) BOT IVPB PRN (16:57)
[2024-02-16 20:24] LABS: Troponin I 0.055 ng/mL (< 0.028)
[2024-02-16] MEDS: Lactulose 20 GM (30 mL) UDCUP PR SCH (22:58)
[2024-02-16] MEDS: Dextrose 50% Abboject 50 ML SYRINGE SLOW IVP PRN (23:09)
[2024-02-17 04:30] LABS: #Basophils 0.05 10x3/uL (0.0-0.2); %Basophils 0.9 % (0.0-1.0); %Lymphocytes 11.2 % (21.0-51.0); %Monocytes 12.1 % (0.0-10.0); %Neutrophils 73.6 % (42.0-75.0); Hematocrit 38.3 % (36.0-47.0); Hemoglobin 12.2 g/dL (12.0-16.0); Mean Corpuscular HGB CONC 31.9 g/dL (32.0-36.0); Mean Corpuscular Hemoglobin 31.7 pg (27.0-31.0); Mean Corpuscular Volume 99.5 fL (78.0-98.0); Mean Platelet Volume 10.3 fL (7.4-10.4); Platelet Count 67 10x3/uL (130-400); RBC Distribution Width 18.1 % (11.5-14.5); Red Blood Cell (RBC) Count 3.85 mill/uL (4.20-5.40)
[2024-02-17 05:06] LABS: ALT (SGPT) 15 U/L (8-55); AST (SGOT) 26 U/L (5-34); Albumin 3.2 g/dL (3.4-4.8); Alkaline Phosphatase 106 U/L (40-110); Anion Gap 17 mmol/L (10-20); BUN (Urea Nitrogen) 13 mg/dL (9.8-20.1); Bilirubin, Total 2.3 mg/dL (0.2-1.2); Calc. Creatinine Clearance 11 mL/min (70-130); Calcium 8.9 mg/dL (7.8-10.44); Carbon Dioxide 26 mmol/L (23-31); Chloride 102 mmol/L (98-107); Estimated GFR 12; Globulin 2.8 g/dL (2.4-3.5); Glucose 113 mg/dL (83-110); Potassium 3.6 mmol/L (3.5-5.1); Sodium 141 mmol/L (136-145)
[2024-02-17] MEDS: Apixaban 2.5 MG TAB PO SCH (20:56)
[2024-02-17] MEDS: Metoprolol Tartrate 25 MG TAB PO SCH (20:56)
[2024-02-17] MEDS: Lactulose 20 GM (30 mL) UDCUP PO SCH (20:56)
[2024-02-17] MEDS: Rifaximin 550 MG TAB PO SCH (22:55)
[2024-02-18 05:01] LABS: Anion Gap 18 mmol/L (10-20); BUN (Urea Nitrogen) 23 mg/dL (9.8-20.1); Calc. Creatinine Clearance 7 mL/min (70-130); Calcium 8.9 mg/dL (7.8-10.44); Carbon Dioxide 23 mmol/L (23-31); Chloride 103 mmol/L (98-107); Estimated GFR 7; Glucose 94 mg/dL (83-110); Potassium 4.3 mmol/L (3.5-5.1); Sodium 140 mmol/L (136-145)
[2024-02-18 05:35] LABS: #Basophils 0.05 10x3/uL (0.0-0.2); %Basophils 0.9 % (0.0-1.0); %Eosinophils 2.8 % (0.0-10.0); %Lymphocytes 17.4 % (21.0-51.0); %Monocytes 12.8 % (0.0-10.0); %Neutrophils 65.9 % (42.0-75.0); Hematocrit 38.2 % (36.0-47.0); Hemoglobin 12.2 g/dL (12.0-16.0); Mean Corpuscular HGB CONC 31.9 g/dL (32.0-36.0); Mean Corpuscular Hemoglobin 32.4 pg (27.0-31.0); Mean Corpuscular Volume 101.3 fL (78.0-98.0); Mean Platelet Volume 11.3 fL (7.4-10.4); Platelet Count 65 10x3/uL (130-400); RBC Distribution Width 18.1 % (11.5-14.5); Red Blood Cell (RBC) Count 3.77 mill/uL (4.20-5.40)
[2024-02-18] MEDS: Levothyroxine Sodium 75 MCG TAB PO SCH (06:31)
[2024-02-18] MEDS: Aspirin 81 mg Enteric Coated Tablet PO SCH (08:15)
[2024-02-18] MEDS: Pantoprazole DR 40 MG TAB PO SCH (08:15)
[2024-02-18] MEDS: Ferrous Sulfate 325 MG TAB PO SCH (08:17)
[2024-02-18 10:10] VITALS: BP 124/55; TEMP 97.1
[2024-02-18] MEDS ORDERED: LevoFLOXacin 250 mg/D5W 250 MG in Premix 1 BAG IVPB SCH ×2 (12:00→17:00)
== END 2024-02-18 15:30 | disposition home health service (06) | DRG 441 ==
LOC: ERS 08:21 → ERHOLD 12:33 → 2SE 18:53
PROVIDERS: ADMIT Internal Medicine; ATTEND Family Medicine
DX: K76.82 Hepatic encephalopathy (principal); I21.A1 Myocardial infarction type 2; N18.6 End stage renal disease; N39.0 Urinary tract infection, site not specified; I13.2 Hypertensive heart and chronic kidney disease with heart failure and with stage 5 chronic kidney disease, or end stage renal disease; E11.22 Type 2 diabetes mellitus with diabetic chronic kidney disease; K74.60 Unspecified cirrhosis of liver; Z88.8 Allergy status to other drugs, medicaments and biological substances; Z79.899 Other long term (current) drug therapy; Z79.82 Long term (current) use of aspirin; Z79.4 Long term (current) use of insulin; Z79.890 Hormone replacement therapy; Z79.01 Long term (current) use of anticoagulants; Z99.2 Dependence on renal dialysis; Z90.710 Acquired absence of both cervix and uterus; Z95.1 Presence of aortocoronary bypass graft; E87.5 Hyperkalemia; E87.70 Fluid overload, unspecified; D63.1 Anemia in chronic kidney disease; K72.10 Chronic hepatic failure without coma; I48.0 Paroxysmal atrial fibrillation; Z91.148 Patient's other noncompliance with medication regimen for other reason; I50.9 Heart failure, unspecified
CPT/HCPCS: 36415; 36416; 51701; 70450; 71045; 80048; 80053; 80306; 80307; 81001; 82140; 82550; 82805; 83605; 83690; 83735; 83880; 84484; 85025; 85610; 85730; 86704; 86706; 86803; 87077; 87086; 87186; 87340; 90935; 93005; 94760; 96374; 97139; G0257; J1956; J7999; U0002

== ENCOUNTER 2024-03-14 06:49 | Inpatient (IN) | payer OTHER ==
[2024-03-14 07:19] LABS: #Basophils 0.04 10x3/uL (0.0-0.2); %Basophils 0.8 % (0.0-1.0); %Eosinophils 2.1 % (0.0-10.0); %Monocytes 13.2 % (0.0-10.0); %Neutrophils 60.7 % (42.0-75.0); Hematocrit 38.5 % (36.0-47.0); Hemoglobin 13.1 g/dL (12.0-16.0); Mean Corpuscular Volume 93.9 fL (78.0-98.0); Mean Platelet Volume 11.3 fL (7.4-10.4); Platelet Count 90 10x3/uL (130-400); RBC Distribution Width 17.9 % (11.5-14.5)
[2024-03-14 07:30] LABS: ALT (SGPT) 22 U/L (8-55); AST (SGOT) 41 U/L (5-34); Albumin 2.5 g/dL (3.4-4.8); Alkaline Phosphatase 164 U/L (40-110); Anion Gap 17 mmol/L (10-20); BUN (Urea Nitrogen) 32 mg/dL (9.8-20.1); Bilirubin, Total 0.9 mg/dL (0.2-1.2); Calc. Creatinine Clearance 0 mL/min (70-130); Calcium 9.2 mg/dL (7.8-10.44); Carbon Dioxide 24 mmol/L (23-31); Chloride 104 mmol/L (98-107); Estimated GFR 6; Globulin 3.6 g/dL (2.4-3.5); Glucose 146 mg/dL (83-110); Potassium 4.5 mmol/L (3.5-5.1); Protein, Total 6.1 g/dL (5.8-8.1); Sodium 140 mmol/L (136-145)
[2024-03-14 07:35] LABS: Troponin I 0.052 ng/mL (< 0.028)
[2024-03-14] MEDS ORDERED: Lactulose 20 GM (30 mL) UDCUP ONE ×2 (09:18→10:01)
[2024-03-14 10:18] LABS: Lactic Acid 2.93 mmol/L (0.5-2.2)
[2024-03-14] MEDS ORDERED: Glucagon 1 MG/ML KIT IM PRN (10:44)
[2024-03-14] MEDS ORDERED: Insulin Regular, Human 100 UNIT/ML 10 ML VIAL SC PRN (10:44)
[2024-03-14] MEDS ORDERED: Lactulose 20 GM (30 mL) UDCUP PR SCH (12:00)
[2024-03-14 12:33] LABS: Actual Bicarbonate (HCO3a) 23.8 mEq/L (22-28); Base Excess (BEa) 1.9 mEq/L (-2.0 to +3.0); CO2 Tension 29.4 mmHg (35.0-45.0); Calcium, Ionized (arterial) 1.11 mmol/L (1.12-1.30); Carboxyhemoglobin (COHb) 0.8 gm% (0.0-3.0); Hematocrit-ABG 40 % (36.0-47.0); Hemoglobin (Hb) 13.5 g/dL (12.0-16.0); O2 Tension (PaO2), arterial 86.5 mmHg (> 60.0); Potassium - ABG Lab 4.15 mmol/L (3.70-5.30); pH, Arterial 7.526 (7.35-7.45)
[2024-03-14 12:35] LABS: Puncture Site RB
[2024-03-14] MEDS: Dextrose 5 % And 0.9 % NaCl 1,000 ML IV SCH (13:06)
[2024-03-14] MEDS: Lactulose 20 GM (30 mL) UDCUP PER TUBE SCH ×2 (15:38→17:28)
[2024-03-14] MEDS: Rifaximin 200 MG TAB PO SCH (15:38)
[2024-03-14 16:01] LABS: Bacteria/HPF 4+ HPF (None Seen); Bilirubin Negative (Negative); Blood, Urine 3+ (Negative); Clarity Turbid (Clear); Glucose, Urine (Dipstick) Normal (Negative); Ketone, Urine Trace mg/dL (Negative); Leukocyte 500 Leu/uL (Negative); Nitrite Negative (Negative); Protein, Urine (Dipstick) 20 mg/dL (Neg-Trace); RBC/HPF 21-50 HPF (0-3); Specific Gravity, Urine 1.022 (1.002-1.036); Squamous Epithelial 21-50 HPF (0-3); WBC/HPF Greater than 50 HPF (0-3); pH, Urine 5.5 (5.0-9.0)
[2024-03-14] MEDS: Rifaximin 550 MG TAB PO SCH (21:00)
[2024-03-14] MEDS: Pantoprazole 40 MG VIAL IVP SCH (21:00)
[2024-03-15 05:34] LABS: Lactic Acid 2.75 mmol/L (0.5-2.2)
[2024-03-15 05:44] LABS: ALT (SGPT) 20 U/L (8-55); AST (SGOT) 45 U/L (5-34); Albumin 2.3 g/dL (3.4-4.8); Alkaline Phosphatase 132 U/L (40-110); Anion Gap 18 mmol/L (10-20); BUN (Urea Nitrogen) 35 mg/dL (9.8-20.1); Bilirubin, Total 1.2 mg/dL (0.2-1.2); Calc. Creatinine Clearance 5 mL/min (70-130); Calcium 8.3 mg/dL (7.8-10.44); Carbon Dioxide 14 mmol/L (23-31); Chloride 111 mmol/L (98-107); Estimated GFR 5; Globulin 3.6 g/dL (2.4-3.5); Glucose 389 mg/dL (83-110); Potassium 4.2 mmol/L (3.5-5.1); Protein, Total 5.9 g/dL (5.8-8.1); Sodium 139 mmol/L (136-145)
[2024-03-15] MEDS: Albumin 25% 100 ML ONE (10:20)
[2024-03-15 10:32] LABS: #Basophils 0.04 10x3/uL (0.0-0.2); %Basophils 0.7 % (0.0-1.0); %Eosinophils 1.5 % (0.0-10.0); %Lymphocytes 13.8 % (21.0-51.0); %Monocytes 6.8 % (0.0-10.0); %Neutrophils 76.9 % (42.0-75.0); Hematocrit 38.4 % (36.0-47.0); Hemoglobin 12.9 g/dL (12.0-16.0); Mean Corpuscular HGB CONC 33.6 g/dL (32.0-36.0); Mean Corpuscular Hemoglobin 32.3 pg (27.0-31.0); Platelet Count 90 10x3/uL (130-400)
[2024-03-15 10:38] LABS: INR-International Normal Ratio 1.3
[2024-03-15] MEDS: Albumin 25% 25 GM (100 mL) BOT IVPB SCH (12:58)
[2024-03-15] MEDS: Amiodarone 450 MG in Dextrose 5% in Water 250 ML IVPB SCH (13:14)
[2024-03-15 14:37] LABS: Magnesium 2.1 mg/dL (1.6-2.6)
[2024-03-15] MEDS: Apixaban 2.5 MG TAB PER TUBE SCH (19:48)
[2024-03-15] MEDS: Insulin Glargine 30 UNITS/0.3 ML VIAL SC SCH (19:48)
[2024-03-16 05:22] LABS: #Basophils 0.04 10x3/uL (0.0-0.2); %Basophils 0.5 % (0.0-1.0); %Eosinophils 1.8 % (0.0-10.0); %Lymphocytes 15.3 % (21.0-51.0); %Neutrophils 70.1 % (42.0-75.0); Hematocrit 34.1 % (36.0-47.0); Mean Corpuscular HGB CONC 32.3 g/dL (32.0-36.0); Mean Corpuscular Hemoglobin 31.7 pg (27.0-31.0); Mean Corpuscular Volume 98.3 fL (78.0-98.0); Mean Platelet Volume 11.2 fL (7.4-10.4); Platelet Count 82 10x3/uL (130-400); RBC Distribution Width 18.2 % (11.5-14.5); Red Blood Cell (RBC) Count 3.47 mill/uL (4.20-5.40)
[2024-03-16 05:34] LABS: Lactic Acid 2.72 mmol/L (0.5-2.2)
[2024-03-16 05:36] LABS: Anion Gap 15 mmol/L (10-20); BUN (Urea Nitrogen) 17 mg/dL (9.8-20.1); Calc. Creatinine Clearance 8 mL/min (70-130); Calcium 9.1 mg/dL (7.8-10.44); Carbon Dioxide 25 mmol/L (23-31); Chloride 105 mmol/L (98-107); Estimated GFR 9; Glucose 121 mg/dL (83-110); Potassium 3.7 mmol/L (3.5-5.1); Sodium 141 mmol/L (136-145)
[2024-03-16 06:16] VITALS: BMI 22.8
[2024-03-16] MEDS: Metoprolol Tartrate 25 MG TAB PER TUBE SCH (09:19)
[2024-03-16] MEDS: Nystatin Powder 15 GM BOT TOP PRN (15:46)
[2024-03-16] MEDS: Nystatin Cream 15 GM TUBE TOP SCH (15:47)
[2024-03-17 03:54] LABS: #Basophils 0.03 10x3/uL (0.0-0.2); %Basophils 0.3 % (0.0-1.0); %Eosinophils 1.7 % (0.0-10.0); %Lymphocytes 10.9 % (21.0-51.0); %Neutrophils 77.7 % (42.0-75.0); Hematocrit 34.5 % (36.0-47.0); Mean Corpuscular HGB CONC 31.9 g/dL (32.0-36.0); Mean Corpuscular Hemoglobin 31.9 pg (27.0-31.0); Mean Platelet Volume 11.1 fL (7.4-10.4); Platelet Count 68 10x3/uL (130-400); RBC Distribution Width 17.8 % (11.5-14.5); Red Blood Cell (RBC) Count 3.45 mill/uL (4.20-5.40)
[2024-03-17 04:49] LABS: ALT (SGPT) 16 U/L (8-55); AST (SGOT) 35 U/L (5-34); Albumin 2.6 g/dL (3.4-4.8); Alkaline Phosphatase 131 U/L (40-110); Anion Gap 15 mmol/L (10-20); BUN (Urea Nitrogen) 28 mg/dL (9.8-20.1); Bilirubin, Total 1.4 mg/dL (0.2-1.2); Calc. Creatinine Clearance 6 mL/min (70-130); Calcium 8.9 mg/dL (7.8-10.44); Carbon Dioxide 24 mmol/L (23-31); Chloride 106 mmol/L (98-107); Estimated GFR 6; Globulin 3.1 g/dL (2.4-3.5); Glucose 168 mg/dL (83-110); Magnesium 2.3 mg/dL (1.6-2.6); Potassium 3.5 mmol/L (3.5-5.1); Protein, Total 5.7 g/dL (5.8-8.1); Sodium 141 mmol/L (136-145)
[2024-03-17] MEDS: Potassium Chloride 20 MEQ TAB PER TUBE SCH (10:36)
[2024-03-17 15:07] LABS: HBSAB Concentration Less than 8.00 mIU/mL; HBsAg Index 0.29 S/CO (0-0.99); Hep B Core Total Ab NONREACTIVE (NonReactive); Hep B Core Total Index 0.15 S/CO (0-0.79); Hep B Surf AB NONREACTIVE (NonReactive); Hep B Surf Ag NONREACTIVE S/CO (NonReactive); Hep C IgG Ab NONREACTIVE S/CO (NonReactive)
[2024-03-18 06:29] LABS: #Basophils 0.03 10x3/uL (0.0-0.2); %Basophils 0.3 % (0.0-1.0); %Eosinophils 2.4 % (0.0-10.0); %Lymphocytes 10.1 % (21.0-51.0); %Monocytes 11.1 % (0.0-10.0); %Neutrophils 75.5 % (42.0-75.0); Hemoglobin 12.2 g/dL (12.0-16.0); Mean Corpuscular HGB CONC 32.1 g/dL (32.0-36.0); Mean Corpuscular Hemoglobin 31.8 pg (27.0-31.0); Mean Platelet Volume 10.9 fL (7.4-10.4); Platelet Count 74 10x3/uL (130-400); RBC Distribution Width 17.4 % (11.5-14.5); Red Blood Cell (RBC) Count 3.84 mill/uL (4.20-5.40)
[2024-03-18 06:33] LABS: ALT (SGPT) 14 U/L (8-55); AST (SGOT) 29 U/L (5-34); Albumin 2.5 g/dL (3.4-4.8); Alkaline Phosphatase 144 U/L (40-110); Anion Gap 11 mmol/L (10-20); BUN (Urea Nitrogen) 19 mg/dL (9.8-20.1); Bilirubin, Total 1.5 mg/dL (0.2-1.2); Calc. Creatinine Clearance 9 mL/min (70-130); Calcium 8.7 mg/dL (7.8-10.44); Carbon Dioxide 29 mmol/L (23-31); Chloride 106 mmol/L (98-107); Estimated GFR 9; Globulin 3.3 g/dL (2.4-3.5); Glucose 110 mg/dL (83-110); Potassium 3.7 mmol/L (3.5-5.1); Protein, Total 5.8 g/dL (5.8-8.1); Sodium 142 mmol/L (136-145)
[2024-03-18] MEDS: Rifaximin 550 MG TAB PO SCH (21:22)
[2024-03-18] MEDS: Metoprolol Tartrate 25 MG TAB PO SCH (21:31)
[2024-03-19] MEDS: Levothyroxine Sodium 75 MCG TAB PO SCH (06:13)
[2024-03-19 06:52] LABS: Anion Gap 15 mmol/L (10-20); BUN (Urea Nitrogen) 32 mg/dL (9.8-20.1); Calc. Creatinine Clearance 4 mL/min (70-130); Calcium 8.9 mg/dL (7.8-10.44); Carbon Dioxide 26 mmol/L (23-31); Chloride 111 mmol/L (98-107); Estimated GFR 6; Glucose 113 mg/dL (83-110); Potassium 4.1 mmol/L (3.5-5.1); Sodium 148 mmol/L (136-145)
[2024-03-19] MEDS: Pantoprazole DR 40 MG TAB PO SCH (13:15)
[2024-03-19] MEDS: Lansoprazole 30 MG/10 ML UDCUP PER TUBE SCH (13:43)
[2024-03-19] MEDS: Lactulose 20 GM (30 mL) UDCUP PER TUBE SCH ×2 (13:43→21:28)
[2024-03-20] MEDS: Lidocaine-Prilocaine 2.5% Cream 5 GM TUBE TOP SCH (11:46)
[2024-03-20] MEDS: Lansoprazole 30 MG/10 ML UDCUP PER TUBE SCH (16:31)
[2024-03-20] MEDS: Dextrose 5% in Water 1,000 ML IV PRN (22:20)
[2024-03-20] MEDS: Dextrose 50% Abboject 50 ML SYRINGE SLOW IVP PRN (23:01)
[2024-03-21] MEDS: Insulin Regular, Human 100 UNIT/ML 10 ML VIAL SC PRN (05:08)
[2024-03-21 06:20] LABS: Hematocrit 33.9 % (36.0-47.0); Hemoglobin 10.2 g/dL (12.0-16.0); Platelet Count 74 10x3/uL (130-400)
[2024-03-21] MEDS: Insulin Glargine 30 UNITS/0.3 ML VIAL SC SCH (21:04)
[2024-03-22 15:36] LABS: Anion Gap 14 mmol/L (10-20); BUN (Urea Nitrogen) 11 mg/dL (9.8-20.1); BUN/Creatinine Ratio 4.96; Calc. Creatinine Clearance 17 mL/min (70-130); Calcium 7.9 mg/dL (7.8-10.44); Carbon Dioxide 28 mmol/L (23-31); Chloride 99 mmol/L (98-107); Estimated GFR 21; Glucose 146 mg/dL (83-110); Phosphorus 1.3 mg/dL (2.3-4.7); Sodium 137 mmol/L (136-145)
[2024-03-23 13:29] VITALS: BMI 23.2
[2024-03-24 07:39] LABS: #Basophils 0.04 10x3/uL (0.0-0.2); %Basophils 0.7 % (0.0-1.0); %Eosinophils 3.8 % (0.0-10.0); %Lymphocytes 14.3 % (21.0-51.0); %Monocytes 11.7 % (0.0-10.0); %Neutrophils 69.2 % (42.0-75.0); Hematocrit 37.3 % (36.0-47.0); Hemoglobin 12.1 g/dL (12.0-16.0); Mean Corpuscular HGB CONC 32.4 g/dL (32.0-36.0); Mean Corpuscular Hemoglobin 32.2 pg (27.0-31.0); Mean Corpuscular Volume 99.2 fL (78.0-98.0); Mean Platelet Volume 10.6 fL (7.4-10.4); Platelet Count 88 10x3/uL (130-400); Red Blood Cell (RBC) Count 3.76 mill/uL (4.20-5.40)
[2024-03-24 08:02] LABS: Anion Gap 10 mmol/L (10-20); BUN (Urea Nitrogen) 29 mg/dL (9.8-20.1); BUN/Creatinine Ratio 7.09; Calc. Creatinine Clearance 10 mL/min (70-130); Calcium 7.9 mg/dL (7.8-10.44); Carbon Dioxide 27 mmol/L (23-31); Chloride 97 mmol/L (98-107); Estimated GFR 10; Glucose 113 mg/dL (83-110); Phosphorus 3.2 mg/dL (2.3-4.7); Potassium 4.3 mmol/L (3.5-5.1); Sodium 130 mmol/L (136-145)
[2024-03-24 08:03] LABS: Anion Gap 18 mmol/L (10-20); BUN (Urea Nitrogen) 29 mg/dL (9.8-20.1); Calc. Creatinine Clearance 9 mL/min (70-130); Calcium 8.3 mg/dL (7.8-10.44); Carbon Dioxide 20 mmol/L (23-31); Chloride 101 mmol/L (98-107); Estimated GFR 10; Glucose 126 mg/dL (83-110); Potassium 4.6 mmol/L (3.5-5.1); Sodium 134 mmol/L (136-145)
[2024-03-24 16:29] VITALS: BP 103/54; TEMP 98.2
== END 2024-03-24 19:25 | disposition home or self-care (01) | DRG 432 ==
LOC: ERS 06:49 → IMCU/EMU 11:55 → T4-B 03-17 18:08
PROVIDERS: ADMIT Internal Medicine; ATTEND Student in an Organized Health Care Education/Training Program
PROC: 4A033R1 Measurement of Arterial Saturation, Peripheral, Percutaneous Approach (ICD-10-PCS; principal; 2024-03-14)
DX: K74.60 Unspecified cirrhosis of liver (principal); G92.8 Other toxic encephalopathy; N18.6 End stage renal disease; E87.20 Acidosis, unspecified; I48.20 Chronic atrial fibrillation, unspecified; I12.0 Hypertensive chronic kidney disease with stage 5 chronic kidney disease or end stage renal disease; E87.0 Hyperosmolality and hypernatremia; K76.82 Hepatic encephalopathy; Z99.2 Dependence on renal dialysis; Z88.8 Allergy status to other drugs, medicaments and biological substances; Z79.899 Other long term (current) drug therapy; Z79.01 Long term (current) use of anticoagulants; E11.22 Type 2 diabetes mellitus with diabetic chronic kidney disease; Z95.1 Presence of aortocoronary bypass graft; Z90.710 Acquired absence of both cervix and uterus; D63.1 Anemia in chronic kidney disease; Z79.4 Long term (current) use of insulin; M19.90 Unspecified osteoarthritis, unspecified site; Z79.82 Long term (current) use of aspirin; E03.9 Hypothyroidism, unspecified; E78.5 Hyperlipidemia, unspecified; K75.81 Nonalcoholic steatohepatitis (NASH); K72.10 Chronic hepatic failure without coma; E87.6 Hypokalemia
CPT/HCPCS: 36415; 36416; 51701; 70450; 71045; 74018; 74230; 76705; 80048; 80053; 80069; 81001; 82105; 82140; 82805; 83605; 83735; 84145; 84443; 84484; 85014; 85018; 85025; 85049; 85610; 86704; 86706; 86803; 87040; 87340; 90935; 93005; 94760; 97139; G0257; J0282; J1815; J2470; J7042; J7070; J7999; P9047